=== PATIENT | female | born 1945 | race Caucasian/White ===

== ENCOUNTER → 2017-11-07 07:00 | Outpatient (CLI) | payer MEDICARE, SELFPAY ==
--- NOTE | 2017-11-07 07:00 | HPBI_ITS ---
MAMMOGRAPHY - BILATERAL SCREENING 3-D FCO SYNTHESIS REASON FOR EXAM: Female, 72 years old. Bilateral Screening 3-D tomosynthesis PERTINENT HISTORY: History of benign breast biopsy.. TECHNIQUE: 2-D mammograms and 3-D Fco synthesis of the breast (s) were performed. CAD was performed. COMPARISON: None. FINDINGS: The breast composition is composed of scattered fibroglandular density. Scattered benign calcifications are seen. No dense spiculated masses or suspicious microcalcifications are identified. No architectural distortion is identified. There is no skin thickening or retraction. There has been no significant change since the prior study. HPBI/SCREENING MAMM (CAD), BILAT IMPRESSION: No mammographic signs of malignancy. Routine yearly mammograms recommended. ASSESSMENT CATEGORY: BIRADS Category 2: Benign. A letter regarding these results will be sent to the patient by the facility within 30 days. FOLLOW UP RECOMMENDATION: Yearly follow up mammogram recommended. (A) Approximately 10% of breast cancers are not detected by mammography. A normal mammogram should not delay biopsy of a clinically suspicious abnormality. Electronically Signed: Michael Belle MD at 10:00 EDT , Service support ,
== END ==
PROVIDERS: Family Provider Family Medicine; PCP Family Medicine; Visit Provider Family Medicine
DX: Z12.31 Encounter for screening mammogram for malignant neoplasm of breast (principal)
CPT/HCPCS: 77063; 77067

== ENCOUNTER → 2017-12-02 09:49 | Outpatient (CLI) | payer MEDICARE, SELFPAY ==
--- NOTE | 2017-12-02 10:09 | EKG12_ITS ---
Test Reason : PRE-OP Blood Pressure : / mmHG Vent. Rate : 064 BPM Atrial Rate : 064 BPM P-R Int : 156 ms QRS Dur : 080 ms QT Int : 392 ms P-R-T Axes : 033 036 030 degrees QTc Int : 404 ms Normal sinus rhythm Normal ECG Confirmed by BRAEDEN JOYA, CHRIS ([id number]), continuity editor CARINA KEYES ([id number] on 12/05/2017 2:46:16 PM Referred By: CYNTHIA KEYES Confirmed By:CHRIS DERAS MD
[2017-12-02 10:27] LABS: Hematocrit 45.3 % (37-47); Hemoglobin 14.9 g/dl (12.0-15.0); Mean Corp Hgb Conc 32.9 g/gl (32-36); Mean Corpuscular Volume 94.4 fL (81-99); Mean Platelet Vol. 9.7 fl (6.2-12.0); Platelet Count 240 K/mm3 (150-450); RBC Distribution Width CV 12.7 % (11.6-14.6); White Blood Count 8.6 K/mm3 (4.4-11.0)
[2017-12-02 10:41] LABS: Scan Indicated on CBC? Y/N NO
== END ==
PROVIDERS: Family Provider Family Medicine; PCP Family Medicine; Visit Provider Surgery
DX: Z86.010 Personal history of colon polyps (principal)
CPT/HCPCS: 36415; 85027; 93005

== ENCOUNTER → 2017-12-13 12:24 | Outpatient (CLI) | payer MEDICARE, SELFPAY ==
--- NOTE | 2017-12-13 12:26 | BD_ITS ---
STUDY: DUAL ENERGY X-RAY ABSORPTIOMETRY / DXA REASON FOR EXAM: Female, 72 years old. Postmenopausal female. Smoker. Patient taking Boniva and calcium. Family history of osteoporosis. History of lumbar fusion and right hip replacement. TECHNIQUE: Bone Mineral Density (BMD) measurements of bilateral forearms were obtained. COMPARISON: None. FINDINGS: Right Forearm: g/cm2 (0.798) / T-score (-1.0) / Z-score (0.9) Left Forearm: g/cm2 (0.894) / T-score (0.1) / Z-score (1.9) BD/Dexa Bone Density/Append Skel IMPRESSION: The patient is considered normal as outlined below according to World Andrei Organization (WHO) criteria with a low fracture risk. Reference Information: The T-score is the number of standard deviations above or below the standard which is normal for young adults at their peak bone mineral density. The World Health Organization (WHO) interprets the T-scores as follows: Above -1 Normal bone density Between -1 and -2.5 Osteopenia Equal to / or below -2.5 Osteoporosis As a practical clinical guideline, osteopenia may be graded as follows: Mild -1 through -1.5 Moderate -1.6 through -2.0 Severe -2.1 through -2.4 The Z-score is the number of standard deviations above or below age-matched controls. A Z-score of less than -1.5 would be considered abnormal. References: 1. NIH Osteoporosis and Related Bone Diseases http://www.osteo.org 2. International Society for Clinical Densitometry http://www.iscd.org 3. National Osteoporosis Foundation http://www.nof.org Electronically Signed: Hesham Silver DO at 8:36 EDT Tel [phone], Service support ,
== END ==
PROVIDERS: Family Provider Family Medicine; PCP Family Medicine; Visit Provider Family Medicine
DX: M81.0 Age-related osteoporosis without current pathological fracture (principal)
CPT/HCPCS: 77081

== ENCOUNTER → 2018-01-04 09:26 | Outpatient (CLI) | payer MEDICARE, SELFPAY ==
[2018-01-04 09:30] LABS: Mucous, Urine 0 SEEN /hpf (<or=2+); Red Blood Cells-Urine 0 SEEN /hpf (0-5)
[2018-01-04 12:13] LABS: Absolute Lymphocyte Count 1.15 X10^3/ul (0.83-4.51); Absolute Neutrophil Count 3.7 X10^3/uL (2.0-7.7); Basophil# 0.03 X10^3/uL; Basophil% 0.5 % (0-1); Eosinophil# 0.33 X10^3/uL; Eosinophils% 5.9 % (0-5); Hematocrit 43.5 % (37-47); Hemoglobin 13.7 g/dl (12.0-15.0); Lymphocyte # 1.15 X10^3/ul (4.0); Lymphocyte % 20.7 % (19-41); Mean Corp Hgb Conc 31.5 g/gl (32-36); Mean Corpuscular Hgb 29.8 pg (27.0-32.0); Mean Corpuscular Volume 94.6 fL (81-99); Mean Platelet Vol. 10.2 fl (6.2-12.0); Monocyte# 0.29 X10^3/uL; Monocyte% 5.2 % (0-10); Neutrophil # 3.74 X10^3/uL (2.7-7.7); Neutrophil % 67.3 % (47-70); Platelet Count 212 K/mm3 (150-450); RBC Distribution Width CV 13.1 % (11.6-14.6); White Blood Count 5.6 K/mm3 (4.4-11.0)
[2018-01-04 12:14] LABS: POSITIVE COUNT NO; POSITIVE DIFFERENTIAL NO; POSITIVE MORPHOLOGY NO
[2018-01-04 12:40] LABS: Color, Urine Yellow (Yellow); Glucose, Dipstick 250 mg/dl (Normal); Ketone-Dipstick 5 mg/dl (Negative); Leukocyte Esterase-Dipstick Negative /ul (Negative); Nitrite-Dipstick Negative (Negative); Occult Blood-Urine 25 /ul (Negative); Protein-Dipstick Negative (Negative); Specific Gravity, Urine 1.025 (1.002-1.030); Urine Clarity Clear (Clear); Urine Urobilinogen 1 mg/dl (Normal)
[2018-01-04 12:42] LABS: Urine Bilirubin Dipstick 1 mg/dL (Negative)
[2018-01-04 12:48] LABS: Calcium Oxalate Crystals Ur 1+ /hpf (<or=2+); Squamous Epithelial Cells - UA 0-5 SEEN /hpf (5-10); White Blood Cells 0-5 SEEN /hpf (0-5)
[2018-01-04 12:50] LABS: Bacteria RARE /hpf (None Seen)
[2018-01-04 12:51] LABS: ALB/GLOB Ratio 1.1 RATIO (0.9-2.4); AST(SGOT) 17 U/L (15-37); Alanine Aminotransfer ALT/SGPT 22 U/L (13-56); Albumin, Serum 3.6 g/dL (3.2-5.0); Alkaline Phosphatase 79 U/L (45-117); Anion Gap 6 (5-15); BUN 17 mg/dL (7-18); BUN/Creat Ratio 22.3 RATIO (10-20); Calcium,Total 8.6 mg/dL (8.5-10.1); Chloride 109 mmol/L (98-107); Creatinine, Serum 0.76 mg/dL (0.55-1.02); EST Glomerular Filtration Rate 80 mL/min (>60); Est Glom Filt Rate - Afr Amer 96 mL/min (>60); Globulin 3.3 g/dL (2.2-4.2); Glucose 205 mg/dL (74-106); Magnesium 1.9 mg/dL (1.6-2.6); Phosphorus 2.1 mg/dL (2.5-4.9); Potassium 3.7 mmol/L (3.5-5.1); Protein, Total 6.9 g/dL (6.4-8.2); Sodium Level 141 mmol/L (136-145); T4 Free Direct 1.45 ng/dL (0.76-1.46); Thyroid Stim Hormone (TSH) 2.05 uIU/mL (0.358-3.74)
[2018-01-04 16:56] LABS: Hemoglobin A1c 6.5 % (4.2-6.3)
== END ==
PROVIDERS: Family Provider Family Medicine; PCP Family Medicine; Visit Provider Family Medicine
DX: R00.0 Tachycardia, unspecified (principal); M81.0 Age-related osteoporosis without current pathological fracture; R61 Generalized hyperhidrosis; Z72.0 Tobacco use; R73.01 Impaired fasting glucose
CPT/HCPCS: 36415; 80053; 81001; 82306; 83036; 83735; 84100; 84439; 84443; 85025

== ENCOUNTER 2018-01-24 13:00 | Outpatient (RCR) | payer MEDICARE, SELFPAY | END 2018-02-11 23:59 | LOC: DC 13:00 | PROVIDERS: Family Provider Family Medicine; PCP Family Medicine; Visit Provider Family Medicine | DX: E11.9 Type 2 diabetes mellitus without complications (principal); Z71.3 Dietary counseling and surveillance | CPT/HCPCS: 97802; G0108 ==

== ENCOUNTER → 2018-02-08 11:10 | Outpatient (CLI) | payer MEDICARE, SELFPAY ==
[2018-02-08 14:26] LABS: Anion Gap 8 (5-15); BUN 18 mg/dL (7-18); BUN/Creat Ratio 21.7 RATIO (10-20); Calcium,Total 8.9 mg/dL (8.5-10.1); Chloride 108 mmol/L (98-107); Creatinine, Serum 0.83 mg/dL (0.55-1.02); EST Glomerular Filtration Rate 72 mL/min (>60); Est Glom Filt Rate - Afr Amer 87 mL/min (>60); Glucose 123 mg/dL (74-106); Potassium 3.9 mmol/L (3.5-5.1); Sodium Level 142 mmol/L (136-145)
== END ==
PROVIDERS: Family Provider Family Medicine; PCP Family Medicine; Visit Provider Family Medicine
DX: I10 Essential (primary) hypertension (principal)
CPT/HCPCS: 36415; 80048

== ENCOUNTER 2018-03-07 10:00 | Outpatient (RCR) | payer MEDICARE, SELFPAY | END 2018-03-14 23:59 | LOC: DC 10:00 | PROVIDERS: Family Provider Family Medicine; PCP Family Medicine; Visit Provider Family Medicine | DX: E11.9 Type 2 diabetes mellitus without complications (principal); Z71.3 Dietary counseling and surveillance | CPT/HCPCS: 97803; G0109 ==

== ENCOUNTER → 2018-04-03 08:38 | Outpatient (CLI) | payer MEDICARE, SELFPAY ==
[2018-04-03 10:20] LABS: Absolute Lymphocyte Count 1.28 X10^3/ul (0.83-4.51); Absolute Neutrophil Count 5.1 X10^3/uL (2.0-7.7); Basophil# 0.04 X10^3/uL; Basophil% 0.6 % (0-1); Eosinophil# 0.25 X10^3/uL; Eosinophils% 3.5 % (0-5); Hematocrit 46.9 % (37-47); Hemoglobin 15.2 g/dl (12.0-15.0); Lymphocyte # 1.28 X10^3/ul (4.0); Lymphocyte % 17.8 % (19-41); Mean Corp Hgb Conc 32.4 g/gl (32-36); Mean Corpuscular Hgb 30.6 pg (27.0-32.0); Mean Corpuscular Volume 94.4 fL (81-99); Mean Platelet Vol. 10.5 fl (6.2-12.0); Monocyte# 0.47 X10^3/uL; Monocyte% 6.5 % (0-10); Neutrophil # 5.14 X10^3/uL (2.7-7.7); Neutrophil % 71.5 % (47-70); Platelet Count 223 K/mm3 (150-450); RBC Distribution Width CV 13.1 % (11.6-14.6); RBC Distribution Width SD 45.5 fl (35.1-43.9); Red Blood Count 4.97 M/mm3 (4.2-5.4); White Blood Count 7.2 K/mm3 (4.4-11.0)
[2018-04-03 10:21] LABS: POSITIVE COUNT NO; POSITIVE DIFFERENTIAL NO; POSITIVE MORPHOLOGY NO
[2018-04-03 10:47] LABS: Hemoglobin A1c 5.6 % (4.2-6.3); Vitamin D,25 Hydroxy 47.3 ng/mL (29.95-100.01)
[2018-04-03 10:48] LABS: BUN 18 mg/dL (7-18); Creatinine, Serum 0.76 mg/dL (0.55-1.02); Glucose 144 mg/dL (74-106)
[2018-04-03 10:49] LABS: AST(SGOT) 17 U/L (15-37); Alanine Aminotransfer ALT/SGPT 22 U/L (13-56); Albumin, Serum 3.6 g/dL (3.2-5.0); Alkaline Phosphatase 76 U/L (45-117); Anion Gap 10 (5-15); BUN/Creat Ratio 23.6 RATIO (10-20); Calcium,Total 9.3 mg/dL (8.5-10.1); Chloride 108 mmol/L (98-107); EST Glomerular Filtration Rate 79 mL/min (>60); Est Glom Filt Rate - Afr Amer 96 mL/min (>60); Globulin 3.5 g/dL (2.2-4.2); Potassium 4.3 mmol/L (3.5-5.1); Protein, Total 7.1 g/dL (6.4-8.2); Sodium Level 144 mmol/L (136-145)
[2018-04-03 11:07] LABS: Microalbumin:Creatinine Ratio 13.6 mg/g CRE (<30 mg/g CRE)
== END ==
PROVIDERS: Family Provider Family Medicine; PCP Family Medicine; Visit Provider Family Medicine
DX: E11.9 Type 2 diabetes mellitus without complications (principal); I10 Essential (primary) hypertension
CPT/HCPCS: 80053; 82043; 82306; 82570; 83036; 85025

== ENCOUNTER → 2018-04-20 11:50 | Outpatient (CLI) | payer MEDICARE, SELFPAY ==
[2018-04-20 13:48] LABS: Anion Gap 9 (5-15); BUN 23 mg/dL (7-18); BUN/Creat Ratio 29.3 RATIO (10-20); Calcium,Total 9.5 mg/dL (8.5-10.1); Chloride 106 mmol/L (98-107); Creatinine, Serum 0.78 mg/dL (0.55-1.02); EST Glomerular Filtration Rate 77 mL/min (>60); Est Glom Filt Rate - Afr Amer 93 mL/min (>60); Glucose 100 mg/dL (74-106); Potassium 3.9 mmol/L (3.5-5.1); Sodium Level 142 mmol/L (136-145)
== END ==
LOC: LABSPEC 11:51 → LAB 11:55
PROVIDERS: Family Provider Family Medicine; PCP Family Medicine; Visit Provider Family Medicine
DX: E11.9 Type 2 diabetes mellitus without complications (principal)
CPT/HCPCS: 36415; 80048; G0109

== ENCOUNTER 2018-05-03 09:30 | Outpatient (RCR) | payer MEDICARE, SELFPAY | END 2018-05-14 23:59 | LOC: DC 09:30 | PROVIDERS: Family Provider Family Medicine; PCP Family Medicine; Visit Provider Family Medicine | DX: E11.9 Type 2 diabetes mellitus without complications (principal); Z71.3 Dietary counseling and surveillance | CPT/HCPCS: 97803; G0109 ==

== ENCOUNTER → 2018-05-03 12:48 | Outpatient (CLI) | payer MEDICARE, SELFPAY ==
--- NOTE | 2018-05-03 12:50 | CT_ITS ---
STUDY: LOW DOSE CT LUNG CANCER SCREENING REASON FOR EXAM: Female, 72 years old. Smoking history of 45 pack years. RADIATION DOSAGE (If Supplied By Facility): CTDIvol = ( 2.55 ) mGy, DLP = ( 77.23 ) mGycm TECHNIQUE: No contrast was administered. Low dose technique was utilized (average mAS-38 and kVp 120). 1.25 mm axial source images with a slice interval of 1.25-mm were reconstructed in lung windows. 2.5 mm axial source images with a slice interval of 2.5-mm were reconstructed in lung windows. 5.0 mm axial source images with a slice interval of 5.0-mm were reconstructed in soft tissue windows. Nodule measured using lung windows on PACS and/or independent workstation with automated measurement of minimum and maximum diameter. Nodule measurement reported as average diameter rounded to the nearest whole number. Growth is defined as an increase ins size of greater than 1.5 mm. COMPARISON: None. NODULES: No suspicious nodules are seen. Emphysema: Hyperinflation. Mild degree of emphysematous changes. Endobronchial lesion: None Aorta: Scattered atherosclerotic plaques. Mediastinal nodes: Small nonsignificant mediastinal lymph nodes. Other chest and abdominal findings: Degenerative changes of the thoracic spine. CT/Low Dose CT Lung Screening IMPRESSION: Lung-RADS category 2 - Continue annual screening with LDCT in 12 months. IMPORTANT NOTES FOR USE: ACR Lung-RADS Version 1.0 Assessment Categories Release Date: December 10, 2013 Category: Coded 0-4 bases on nodule(s) with highest degree of suspicion. Negative screen is defined as categories 1 and 2; a positive screen is defined as categories 3 and 4. Category 3 and 4A nodules that are unchanged on interval CT should be coded as category 2, and individuals returned to screening in 12 months. Category 4X: Category 3 or 4 nodules with additional imaging findings that increase the suspicion of lung cancer, such as spiculation, GGN that doubles in size in 1 year, enlarged lymph notes, etc. Category Modifiers: S (significant finding unrelated to lung cancer) and C (prior history of treated lung cancer) may be added to the 0-4 Lung-RADS Electronically Signed: Nato Gates MD at 13:27 EDT Tel [phone], Service support ,
== END ==
PROVIDERS: Family Provider Family Medicine; PCP Family Medicine; Visit Provider Internal Medicine Pulmonary Disease
DX: Z12.2 Encounter for screening for malignant neoplasm of respiratory organs (principal); Z87.891 Personal history of nicotine dependence
CPT/HCPCS: 97803; G0297

== ENCOUNTER 2018-05-18 08:36 | Outpatient (RCR) | payer MEDICARE, SELFPAY | END 2018-06-14 23:59 | LOC: DC 08:36 | PROVIDERS: Family Provider Family Medicine; PCP Family Medicine; Visit Provider Family Medicine | DX: E11.9 Type 2 diabetes mellitus without complications (principal); Z71.3 Dietary counseling and surveillance | CPT/HCPCS: G0109 ==

== ENCOUNTER 2018-06-21 09:23 | Outpatient (RCR) | payer MEDICARE, SELFPAY | END 2018-06-21 23:59 | disposition home or self-care (01) | LOC: DC 09:23 | PROVIDERS: Family Provider Family Medicine; PCP Family Medicine; Visit Provider Family Medicine | DX: E11.9 Type 2 diabetes mellitus without complications (principal); Z71.3 Dietary counseling and surveillance | CPT/HCPCS: G0109 ==

== ENCOUNTER → 2018-06-30 08:59 | Outpatient (CLI) | payer MEDICARE, SELFPAY ==
--- NOTE | 2018-06-30 09:02 | RAD_ITS ---
STUDY: X-RAY CHEST REASON FOR EXAM: Female, 73 years old. Cough for months prior, complains of runny nose and allergies. TECHNIQUE: PA and lateral views of the chest. COMPARISON: CT chest low dose 05/03/2018. FINDINGS: The lungs are clear and hyperinflated. There is no demonstrated pleural abnormality. Normal size heart. Normal mediastinum and jose. Normal visualized pulmonary arteries. There is atherosclerotic calcification of the aortic arch with tortuosity. Age-appropriate thoracic spine. Normal visualized ribs, clavicles, and shoulders. Status post lumbar fusion. There is no demonstrated abnormality of the visualized soft tissue structures of the upper abdomen. RAD/Chest PA and Lateral IMPRESSION: Hyperinflation, component of emphysema suspected. No pulmonary edema, congestive heart failure or confluent pneumonia. Electronically Signed: Summer Wells MD at 3:13 EST , Service support ,
== END ==
PROVIDERS: Family Provider Family Medicine; PCP Family Medicine; Referring Provider Family Medicine; Visit Provider Family Medicine
DX: J20.9 Acute bronchitis, unspecified (principal)
CPT/HCPCS: 71046

== ENCOUNTER → 2018-07-24 15:34 | Outpatient (CLI) | payer MEDICARE, SELFPAY ==
[2018-07-24 17:55] LABS: Absolute Eosinophil Count 0.26 X10^3/uL (0.0-0.23); Hematocrit 41.9 % (37-47); Hemoglobin 13.5 g/dl (12.0-15.0); Mean Corp Hgb Conc 32.2 g/gl (32-36); Mean Corpuscular Hgb 30.1 pg (27.0-32.0); Mean Corpuscular Volume 93.5 fL (81-99); Platelet Count 234 K/mm3 (150-450); RBC Distribution Width CV 13.1 % (11.6-14.6); RBC Distribution Width SD 43.8 fl (35.1-43.9); Red Blood Count 4.48 M/mm3 (4.2-5.4); White Blood Count 7.8 K/mm3 (4.4-11.0)
[2018-07-24 18:31] LABS: Erythrocyte Sedimentation Rate 11 mm/hr (0-30)
[2018-07-24 19:38] LABS: Scan Indicated on CBC? Y/N NO
[2018-07-27 07:37] LABS: Angiotensin Convert Enzyme 41 U/L (14-82)
--- OUTSIDE RECORDS SUMMARY | 2018-09-10 00:05 | XMS RPT_ITS ---
:1945 Author Organization OHIP Support Name Relationship Address Phone GERALDINEBLAKE Unavailable [address] + [place] [address] R Unavailable Unavailable Unavailable BLAKE CHANDLER Unavailable [address] + [place] [address] R Unavailable Unavailable Unavailable BLAKE CHANDLER Unavailable [address] + [place] [address] R Unavailable Unavailable Unavailable BLAKE CHANDLER Unavailable [address] + [place] [address] R Unavailable Unavailable Unavailable BLAKE CHANDLER Unavailable [address] + [place] [address] R Unavailable Unavailable Unavailable BLAKE CHANDLER Unavailable [address] + [place] [address] R Unavailable Unavailable Unavailable BLAKE CHANDLER Unavailable [address] + [place] [address] R Unavailable Unavailable Unavailable BLAKE CHANDLER Unavailable [address] + [place] [address] R Unavailable Unavailable Unavailable BLAKE CHANDLER Unavailable [address] + [place] [address] R Unavailable Unavailable Unavailable BLAKE CHANDLER Unavailable [address] + [place] [address] R Unavailable Unavailable Unavailable BLAKE CHANDLER Unavailable [address] + [place] [address] R Unavailable Unavailable Unavailable BLAKE CHANDLER Unavailable [address] + [place] [address] R Unavailable Unavailable Unavailable BLAKE CHANDLER Unavailable [address] + [place] [address] R Unavailable Unavailable Unavailable BLAKE CHANDLER Unavailable [address] + [place], [place] [id number] LBAKE CHANDLER Unavailable [address] Unavailable [place], [place] [id number] NOT GIVEN Unavailable Unavailable Unavailable BLAKE CHANDLER Unavailable [address] + [place] [address] R Unavailable Unavailable Unavailable BLAKE CHANDLER Unavailable [address] + [place] [address] R Unavailable Unavailable Unavailable BLAKE CHANDLER Unavailable [address] + [place] [address] R Unavailable Unavailable Unavailable NOT GIVEN Unavailable Unavailable Unavailable BLAKE CHANDLER Unavailable [address] + [place] [address] R Unavailable Unavailable Unavailable Care Team Providers Name Role Phone CYNTHIA KEYES Admitting Unavailable CYNTHIA KEYES Attending Unavailable CYNTHIA KEYES Primary Care Unavailable TRENT PETERSON Consulting Unavailable PROVIDER, UNKNOWN Consulting Unavailable PROVIDER, UNKNOWN Consulting Unavailable PROVIDER, UNKNOWN Consulting Unavailable CYNTHIA KEYES Admitting Unavailable CYNTHIA KEYES Attending Unavailable CYNTHIA KEYES Primary Care Unavailable TERRANCE LUNA Consulting Unavailable TERRANCE LUNA Referring Unavailable PROVIDER, UNKNOWN Consulting Unavailable Zaki Kinney Attending Unavailable Zaki Kinney Referring Unavailable SchTerrance pate Primary Care Unavailable SchTerrance pate Attending Unavailable Terrance Luna Primary Care Unavailable Trent Peterson Attending Unavailable Trent Peterson Primary Care Unavailable CYNTHIA KEYES Attending Unavailable CYNTHIA KEYES Referring Unavailable Trent Peterson Primary Care Unavailable SchTerrance pate Attending Unavailable SchTerrance pate Referring Unavailable SchTerrance pate Primary Care Unavailable SchTerrance pate Attending Unavailable SchTerrance pate Primary Care Unavailable Porfirio Deras Attending Unavailable CYNTHIA KEYES Referring Unavailable SchTerrance pate Attending Unavailable SchTerrance pate Primary Care Unavailable SchTerrance pate Attending Unavailable SchTerrance pate Primary Care Unavailable SchTerrance pate Attending Unavailable SchTerrance pate Primary Care Unavailable SchTerrance pate Attending Unavailable SchTerrance pate E Primary Care Unavailable SchTerrance pate Attending Unavailable Schrio, Terrance Venegas Primary Care Unavailable SchTerrance pate Attending Unavailable SchTerrance pate Referring Unavailable Schrio, Terrance Venegas Primary Care Unavailable Zaki Kinney Attending Unavailable Zaki Kinney Referring Unavailable ScheTrrance pate E Primary Care Unavailable SchTerrance pate Attending Unavailable Terrance [place] Primary Care Unavailable Terrance Luna Attending Unavailable Terrance Luna Primary Care Unavailable Terrance Luna Attending Unavailable Terrance Luna Referring Unavailable Terrance Luna Primary Care Unavailable PROBLEMS PROBLEMS DATE TYPE CONDITION / CODE ATTENDING STATUS SOURCE 06/30/2018 Unknown J20.9 - Acute Annecoriesara Terrance Active [place] bronchitis, E Community unspecified / Hospital J20.9(ICD-10) Repository 06/22/2018 Unknown E11.9 - Type 2 Celeste Terrance Active [place] diabetes mellitus E Community without Hospital complications / Repository E11.9(ICD-10) 04/20/2018 Unknown 250.00 - Diabetes Celeste [place]ance Active [place] mellitus without E Community mention of Hospital complication, type Repository II or unspecified type, not stated as uncontrolled / 250.00(ICD-9) 12/02/2017 Unknown Z86.010 - Personal CYNTHIA KEYES Active [place] history of colonic [facility] polyps / Hospital Z86.010(ICD-10) Repository 01/04/2018 Unknown Z01.810 - Encounter Margarita Deras [place] for preprocedural [facility] examination / Repository Z01.810(ICD-10) 12/01/2017 Principle Personal history of CYN[place]IA KE[place] Active Roney Leahy Diagnosis colonic polyps / [facility] E76156(ICD-10) Hospital Repository 11/07/2017 Unknown Z12.31 - Encounter Trent Peterson Active [place] for screening [facility] mammogram for [facility] malignant neoplasm Repository of breast / Z12.31(ICD-10) PROCEDURES PROCEDURES No Procedure Records FoundRESULTS RESULTS CBC W/DIFF, AUTOMATED Collected: 08/31/2018 Status: F Source: [place] [facility] TYPE CODE TESTS RESULT OUT OF RANGE REFERENCE UNITS LAB L100.1000 4.4-11.0 K/mm3 Normal WBC 7.5 LAB L100.1200 4.2-5.4 M/mm3 Normal RBC 4.53 LAB L100.1300 12.0-15.0 g/dl Normal HGB 13.4 LAB L100.1400 37-47 % Normal HCT 41.8 LAB L100.1500 81-99 fL Normal MCV 92.3 LAB L100.1600 27.0-32.0 pg Normal MCH 29.6 LAB L100.1700 32-36 g/gl Normal MCHC 32.1 LAB L100.1810 11.6-14.6 % Normal RDW CV 12.5 LAB L100.1820 35.1-43.9 fl Normal RDW SD 42.1 LAB L100.1900 150-450 K/mm3 Normal PLT 271 LAB L100.2000 6.2-12.0 fl Normal MPV 9.7 LAB L100.2100 47-70 % Normal NEUT% 64.6 LAB L100.2200 19-41 % Normal LY% 22.9 LAB L100.2300 0-10 % Normal MONO% 8.4 LAB L100.2400 0-5 % Normal EO% 3.1 LAB L100.2500 0-1 % Normal BASO% 0.7 LAB L100.2550 0.0-0.9 % Normal IM GRAN % 0.300 Result Comment: IG% - Immature Granulocytes (promyelocytes, myelocytes and metamyelocytes) > 1% indicates that a LEFT SHIFT is Present. LAB L100.2620 2.0-7.7 X10 3/uL Normal Absolute Neut 4.8 LAB L100.2720 0.83-4.51 X10 3/ul Normal Absolute Lymph 1.71 Performed By: #### L100.0100 #### [facility] [address] [place], [place], [address] URINALYSIS, COMPLETE Collected: 08/31/2018 Status: F Source: [place] 11:09 AM [facility] REPOSITORY Order Comment: How was Urine Obtained? CLEAN CATCH TYPE CODE TESTS RESULT OUT OF RANGE REFERENCE UNITS LAB L400.3000 Yellow COLOR Normal Yellow LAB L400.3050 Clear Normal CLARITY Sl. Cloudy LAB L400.3200 Normal mg/dl Normal GLUCOSE, UR Normal LAB L400.3300 Negative mg/dL Normal BILIRUBIN URINE Negative LAB L400.3400 Negative mg/dl Normal KETONE UR Negative LAB L400.3465 1.002-1.030 Normal SP.GR. DIPSTX 1.010 LAB L400.3550 5.0 - 8.0 pH UR Normal 7.0 LAB L400.3600 Negative mg/dl PROT Normal DIPSTX Negative LAB L400.3700 Normal mg/dl Normal UROBILI Normal LAB L400.3750 Negative Normal NITRITE UR Negative LAB L400.3780 Negative /ul High 25 OCCULT BLOOD-UR LAB L400.3800 Negative /ul LEUK Normal ESTERASE Negative LAB L400.4050 0-5 /hpf WBC Normal 0-5 SEEN LAB L400.4100 0-5 /hpf 0 Normal RBC-UA SEEN LAB L400.4150 5-10 /hpf SQUAM Normal EPI 5-10 SEEN LAB L400.4300 None Seen /hpf 2+ Normal BACTERIA LAB L400.4350 <or=2+ /hpf 3+ Normal MUCUS, URINE Performed By: #### L400.0001 #### [facility] [address] [place], [address] HEMOGLOBIN A1C Collected: 08/31/2018 Status: F Source: [place] 11:09 [facility] REPOSITORY TYPE CODE TESTS RESULT OUT OF RANGE REFERENCE UNITS LAB L501.9985 4.2-6.3 % Normal HGB A1C 6.2 Performed By: #### L501.9985 #### [facility] [address] [place], [address] COMPREHENSIVE METABOLIC Collected: 08/31/2018 Status: F Source: [facility] 11:09 [facility] REPOSITORY TYPE CODE TESTS RESULT OUT OF RANGE REFERENCE UNITS LAB L501.0100 74-106 mg/dL Normal GLU 85 Result Comment: Please note revised GLUCOSE reference range effective 2017. LAB L501.1000 7-18 mg/dL High BUN 26 LAB L501.1100 0.55-1.02 mg/dL Normal CREAT,SERUM 0.73 Result Comment: The validity of the calculated GFR AND GFRAA in patients over 70 years has not been determined. Clinical correlation is essential. LAB L501.1110 >60 mL/min Normal EST GFR 83 Result Comment: Non- GFR Calc LAB L501.1115 >60 mL/min Normal EST GFR - AA 100 Result Comment: GFR Calc LAB L501.1300 10-20 RATIO High BUN/CRE 35.4 LAB L501.1500 6.4-8.2 g/dL T Normal PROT 7.3 LAB L501.1800 3.2-5.0 g/dL Normal ALB 3.7 LAB L501.1950 2.2-4.2 g/dL Normal GLOB 3.6 LAB L501.2000 0.9-2.4 RATIO Normal A/G 1.0 LAB L501.2200 8.5-10.1 mg/dL CA Normal 9.3 LAB L501.4100 15-37 U/L Normal AST 16 LAB L501.4305 45-117 U/L Normal ALK P 76 LAB L501.4405 13-56 U/L Normal ALT 21 LAB L501.4600 0.20-1.00 mg/dL T Normal BILI 0.30 LAB L501.5300 136-145 mmol/L NA Normal 142 LAB L501.5600 3.5-5.1 mmol/L K Normal 4.1 LAB L501.5900 98-107 mmol/L CL Normal 106 LAB L501.6100 21.0-32.0 mmol/L Normal CO2 25.0 LAB L501.6200 5-15 Normal GAP 11 Performed By: #### L500.4050, L501.5200 #### [facility] [address] [facility] [place], [place], [address] MAGNESIUM Collected: 08/31/2018 Status: F Source: [place] 11:09 AM [facility] REPOSITORY TYPE CODE TESTS RESULT OUT OF RANGE REFERENCE UNITS LAB L501.5200 1.6-2.6 mg/dL Normal MG 2.1 Performed By: #### L500.4050, L501.5200 #### [facility] [address] [place], [place], [address] MICROALB:CREAT Collected: 08/31/2018 Status: F Source: [place] RATIO,RANDOM UR 11:09 AM [facility] REPOSITORY TYPE CODE TESTS RESULT OUT OF RANGE REFERENCE UNITS LAB L501.1200 NO RANGE EST. mg/dL Normal UR CREAT 134.00 LAB L502.0500 NO RANGE EST. mg/L Normal 12.1 MICROALBUMIN ,UR LAB L502.0600 <30 mg/g CRE mg/g CRE Normal 9.0 MALB:CREAT Performed By: #### L502.0250 #### [facility] [address] [place], [place], [address] VITAMIN D,25 HYDROXY Collected: 08/31/2018 Status: F Source: [place] 11:09 AM [facility] REPOSITORY TYPE CODE TESTS RESULT OUT OF RANGE REFERENCE UNITS LAB L506.1000 29.95-100.01 ng/mL Normal Vitamin D 49.9 25-OH Result Comment: Vitamin D 25(OH) Status Range Deficiency <20 ng/mL (50nmol/L) Insuffciency 20 - 30 ng/mL (50 - 75 nmol/L) Sufficiency 30 - 100 ng/mL (75 - 250 nmol/L) Toxicity >100 ng/mL (>250 nmol/L) Performed By: #### L506.1000 #### [facility] [address] [place], [place], [id number] CBC-COMPLETE BLOOD CNT Collected: 07/24/2018 Status: F Source: [place] NO DIFF 3:43 PM [facility] REPOSITORY TYPE CODE TESTS RESULT OUT OF RANGE REFERENCE UNITS LAB L100.1000 4.4-11.0 K/mm3 Normal WBC 7.8 LAB L100.1200 4.2-5.4 M/mm3 Normal RBC 4.48 LAB L100.1300 12.0-15.0 g/dl Normal HGB 13.5 LAB L100.1400 37-47 % Normal HCT 41.9 LAB L100.1500 81-99 fL Normal MCV 93.5 LAB L100.1600 27.0-32.0 pg Normal MCH 30.1 LAB L100.1700 32-36 g/gl Normal MCHC 32.2 LAB L100.1810 11.6-14.6 % Normal RDW CV 13.1 LAB L100.1820 35.1-43.9 fl Normal RDW SD 43.8 LAB L100.1900 150-450 K/mm3 Normal PLT 234 LAB L100.2000 6.2-12.0 fl Normal MPV 10.0 Performed By: #### L100.0500, L100.2920, L101.9900 #### [facility] [address] [place], [place], [id number] ABSOLUTE EOSINOPHIL Collected: 07/24/2018 Status: F Source: [place] COUNT 3:43 PM [facility] REPOSITORY TYPE CODE TESTS RESULT OUT OF REFERENCE UNITS RANGE LAB L100.2920 0.0-0.23 X10 3/uL High Absolute EOS 0.26 Ct Performed By: #### L100.0500, L100.2920, L101.9900 #### [facility] [address] [place], [address] ERYTHROCYTE SED RATE Collected: 07/24/2018 Status: F Source: [place] 3:43 PM [facility] REPOSITORY TYPE CODE TESTS RESULT OUT OF RANGE REFERENCE UNITS LAB L102.0000 0-30 mm/hr Normal SED RATE 11 Performed By: #### L100.0500, L100.2920, L101.9900 #### [facility] [address] [place], [address] ANGIOTENSIN CONVERT Collected: 07/24/2018 Status: F Source: [place] ENZYME 3:43 PM [facility] REPOSITORY TYPE CODE TESTS RESULT OUT OF RANGE REFERENCE UNITS LAB L3100.6900 14-82 U/L Normal EMY [id number] Result Comment: Performed at: - [facility] [place] [id number] Geothermal Field Technician: Stephan Mackenzie PhD, Phone: [phone] Performed By: #### L3100.6900 #### [facility] (refer to report for specific site) refer to report for address and phone number CHEST PA AND LATERAL Observed: 06/30/2018 Status: F Source: [place] 9:02 AM [facility] REPOSITORY [facility] Imaging Services [address] [place] [address] Chest PA and Lateral MR#: [id number] Acct: [id number] Name: SUSAN CHANDLER Rep #: [id number] : 1945 F 73 From: Summer Wells MD PCP: Terrance [place] MD Status: REG CLI Study: Chest PA and Lateral Date of Exam: 06/30/18 Exam# [id number] Ordering Dr: Terrance [place] MD STUDY: X-RAY CHEST REASON FOR EXAM: Female, 73 years old. Cough for months prior, complains of runny nose and allergies. TECHNIQUE: PA and lateral views of the chest. COMPARISON: CT chest low dose 05/03/2018. FINDINGS: The lungs are clear and hyperinflated. There is no demonstrated pleural abnormality. Normal size heart. Normal mediastinum and jose. Normal visualized pulmonary arteries. There is atherosclerotic calcification of the aortic arch with tortuosity. Age-appropriate thoracic spine. Normal visualized ribs, clavicles, and shoulders. Status post lumbar fusion. There is no demonstrated abnormality of the visualized soft tissue structures of the upper abdomen. RAD/Chest PA and Lateral IMPRESSION: Hyperinflation, component of emphysema suspected. No pulmonary edema, congestive heart failure or confluent pneumonia. Electronically Signed: Summer Wells MD at 3:13 EST , Service support , CC: Terrance [place] MD Metal Stamper: Signed LOW DOSE CT LUNG Observed: 05/03/2018 Status: F Source: [place] SCREENING 12:51 PM [facility] REPOSITORY [facility] Imaging Services [address] [place] [address] Lung Screening MR#: [id number] Acct: [id number] Name: SUSAN CHANDLER Rep #: [id number] : 1945 F 72 From: Nato Gates MD PCP: Terrance [place] MD Status: REG [facility] Study: Low Dose CT Lung Screening Date of Exam: 05/03/18 Exam# [id number] Ordering Dr: Zaki Kinney MD STUDY: LOW DOSE CT LUNG CANCER SCREENING REASON FOR EXAM: Female, 72 years old. Smoking history of 45 pack years. RADIATION DOSAGE (If Supplied By Facility): CTDIvol = ( 2.55 ) mGy, DLP = ( 77.23 ) mGycm TECHNIQUE: No contrast was administered. Low dose technique was utilized (average mAS-38 and kVp 120). 1.25 mm axial source images with a slice interval of 1.25- mm were reconstructed in lung windows. 2.5 mm axial source images with a slice interval of 2.5-mm were reconstructed in lung windows. 5.0 mm axial source images with a slice interval of 5.0-mm were reconstructed in soft tissue windows. Nodule measured using lung windows on PACS and/or independent workstation with automated measurement of minimum and maximum diameter. Nodule measurement reported as average diameter rounded to the nearest whole number. Growth is defined as an increase ins size of greater than 1.5 mm. COMPARISON: None. NODULES: No suspicious nodules are seen. Emphysema: Hyperinflation. Mild degree of emphysematous changes. Endobronchial lesion: None Aorta: Scattered atherosclerotic plaques. Mediastinal nodes: Small nonsignificant mediastinal lymph nodes. Other chest and abdominal findings: Degenerative changes of the thoracic spine. CT/Low Dose CT Lung Screening IMPRESSION: Lung-RADS category 2 - Continue annual screening with LDCT in 12 months. IMPORTANT NOTES FOR USE: ACR Lung-RADS Version 1.0 Assessment Categories Release Date: December 10, 2013 Category: Coded 0-4 bases on nodule(s) with highest degree of suspicion. Negative screen is defined as categories 1 and 2; a positive screen is defined as categories 3 and 4. Category 3 and 4A nodules that are unchanged on interval CT should be coded as category 2, and individuals returned to screening in 12 months. Category 4X: Category 3 or 4 nodules with additional imaging findings that increase the suspicion of lung cancer, such as spiculation, GGN that doubles in size in 1 year, enlarged lymph notes, etc. Category Modifiers: S (significant finding unrelated to lung cancer) and C (prior history of treated lung cancer) may be added to the 0-4 Lung-RADS Electronically Signed: Nato Gates MD at 13:27 EDT Tel [phone], Service support , CC: Terrance [place] MD; Zaki Kinney MD Metal Stamper: Signed BASIC METABOLIC Collected: 04/20/2018 Status: F Source: [place] PROFILE (BMP) 11:53 AM [facility] REPOSITORY Order Comment: Order Date: 04/19/18 Order Info: 0667-1 - BMP TYPE CODE TESTS RESULT OUT OF RANGE REFERENCE UNITS LAB L501.0100 74-106 mg/dL Normal GLU 100 Result Comment: Fasting Glucose result from 100 to 125 mg/dL suggests IMPAIRED HOMEOSTASIS per A.D.A. criteria. Please note revised GLUCOSE reference range effective 2017. LAB L501.1000 7-18 mg/dL High BUN 23 LAB L501.1100 0.55-1.02 mg/dL Normal CREAT,SERUM 0.78 Result Comment: The validity of the calculated GFR AND GFRAA in patients over 70 years has not been determined. Clinical correlation is essential. LAB L501.1110 >60 mL/min Normal EST GFR 77 Result Comment: Non- GFR Calc LAB L501.1115 >60 mL/min Normal EST GFR - AA 93 Result Comment: GFR Calc LAB L501.1300 10-20 RATIO High BUN/CRE 29.3 LAB L501.2200 8.5-10.1 mg/dL CA Normal 9.5 LAB L501.5300 136-145 mmol/L NA Normal 142 LAB L501.5600 3.5-5.1 mmol/L K Normal 3.9 LAB L501.5900 98-107 mmol/L CL Normal 106 LAB L501.6100 21.0-32.0 mmol/L Normal CO2 27.0 LAB L501.6200 5-15 Normal GAP 9 Performed By: #### L500.2500 #### [facility] [address] [place], [place] [address]. [place], [address] CBC W/DIFF, AUTOMATED Collected: 04/03/2018 Status: F Source: [place] 9:07 AM [facility] REPOSITORY Order Comment: Order Date: 04/03/18 Order Info: 0184-1 - CBCD TYPE CODE TESTS RESULT OUT OF RANGE REFERENCE UNITS LAB L100.1000 4.4-11.0 K/mm3 Normal WBC 7.2 LAB L100.1200 4.2-5.4 M/mm3 Normal RBC 4.97 LAB L100.1300 12.0-15.0 g/dl High HGB 15.2 LAB L100.1400 37-47 % Normal HCT 46.9 LAB L100.1500 81-99 fL Normal MCV 94.4 LAB L100.1600 27.0-32.0 pg Normal MCH 30.6 LAB L100.1700 32-36 g/gl Normal MCHC 32.4 LAB L100.1810 11.6-14.6 % Normal RDW CV 13.1 LAB L100.1820 35.1-43.9 fl High RDW SD 45.5 LAB L100.1900 150-450 K/mm3 Normal PLT 223 LAB L100.2000 6.2-12.0 fl Normal MPV 10.5 LAB L100.2100 47-70 % High NEUT% 71.5 LAB L100.2200 19-41 % Low LY% 17.8 LAB L100.2300 0-10 % Normal MONO% 6.5 LAB L100.2400 0-5 % Normal EO% 3.5 LAB L100.2500 0-1 % Normal BASO% 0.6 LAB L100.2550 0.0-0.9 % Normal IM GRAN % 0.100 Result Comment: IG% - Immature Granulocytes (promyelocytes, myelocytes and metamyelocytes) > 1% indicates that a LEFT SHIFT is Present. LAB L100.2620 2.0-7.7 X10 3/uL Normal Absolute Neut 5.1 LAB L100.2720 0.83-4.51 X10 3/ul Normal Absolute Lymph 1.28 Performed By: #### L100.0100, L501.9985, L506.1000, L500.4050, L502.0250 #### [facility] [address] [facility] [place], [place], [address] HEMOGLOBIN A1C Collected: 04/03/2018 Status: F Source: [place] 9:07 AM [facility] REPOSITORY Order Comment: Order Date: 04/03/18 Order Info: 4548-4 - A1C TYPE CODE TESTS RESULT OUT OF RANGE REFERENCE UNITS LAB L501.9985 4.2-6.3 % Normal HGB A1C 5.6 Performed By: #### L100.0100, L501.9985, L506.1000, L500.4050, L502.0250 #### [facility] [address] [facility] [place], [place], [address] VITAMIN D,25 HYDROXY Collected: 04/03/2018 Status: F Source: [place] 9:07 AM [facility] REPOSITORY Order Comment: Order Date: 04/03/18 Order Info: 16969-9 - VITD25 TYPE CODE TESTS RESULT OUT OF RANGE REFERENCE UNITS LAB L506.1000 29.95-100.01 ng/mL Normal Vitamin D 47.3 25-OH Result Comment: Vitamin D 25(OH) Status Range Deficiency <20 ng/mL (50nmol/L) Insuffciency 20 - 30 ng/mL (50 - 75 nmol/L) Sufficiency 30 - 100 ng/mL (75 - 250 nmol/L) Toxicity >100 ng/mL (>250 nmol/L) Performed By: #### L100.0100, L501.9985, L506.1000, L500.4050, L502.0250 #### [facility] [address] [place], [address] COMPREHENSIVE METABOLIC Collected: 04/03/2018 Status: F Source: [place] 9:07 AM [facility] REPOSITORY Order Comment: Order Date: 04/03/18 Order Info: 0786-1 - CMP TYPE CODE TESTS RESULT OUT OF RANGE REFERENCE UNITS LAB L501.0100 74-106 mg/dL High GLU 144 Result Comment: Fasting Glucose result greater than or equal to 126 mg/dL suggests DIABETES MELLITUS per A.D.A. criteria. Please note revised GLUCOSE reference range effective 2017. LAB L501.1000 7-18 mg/dL Normal BUN 18 LAB L501.1100 0.55-1.02 mg/dL Normal CREAT,SERUM 0.76 Result Comment: The validity of the calculated GFR AND GFRAA in patients over 70 years has not been determined. Clinical correlation is essential. LAB L501.1110 >60 mL/min Normal EST GFR 79 Result Comment: Non- GFR Calc LAB L501.1115 >60 mL/min Normal EST GFR - AA 96 Result Comment: GFR Calc LAB L501.1300 10-20 RATIO High BUN/CRE 23.6 LAB L501.1500 6.4-8.2 g/dL T Normal PROT 7.1 LAB L501.1800 3.2-5.0 g/dL Normal ALB 3.6 LAB L501.1950 2.2-4.2 g/dL Normal GLOB 3.5 LAB L501.2000 0.9-2.4 RATIO Normal A/G 1.0 LAB L501.2200 8.5-10.1 mg/dL CA Normal 9.3 LAB L501.4100 15-37 U/L Normal AST 17 LAB L501.4305 45-117 U/L Normal ALK P 76 LAB L501.4405 13-56 U/L Normal ALT 22 LAB L501.4600 0.20-1.00 mg/dL T Normal BILI 0.40 LAB L501.5300 136-145 mmol/L NA Normal 144 LAB L501.5600 3.5-5.1 mmol/L K Normal 4.3 LAB L501.5900 98-107 mmol/L High CL 108 LAB L501.6100 21.0-32.0 mmol/L Normal CO2 26.0 LAB L501.6200 5-15 Normal GAP 10 Performed By: #### L100.0100, L501.9985, L506.1000, L500.4050, L502.0250 #### [facility] [address] [place], [place], [address] MICROALB:CREAT Collected: 04/03/2018 Status: F Source: [place] RATIO,RANDOM UR 9:07 AM [facility] REPOSITORY Order Comment: Order Date: 04/03/18 Order Info: 0779-1 - MIACRE TYPE CODE TESTS RESULT OUT OF RANGE REFERENCE UNITS LAB L501.1200 NO RANGE EST. mg/dL Normal UR CREAT 110.00 LAB L502.0500 NO RANGE EST. mg/L Normal 15.0 MICROALBUMIN ,UR LAB L502.0600 <30 mg/g CRE mg/g CRE Normal 13.6 MALB:CREAT Performed By: #### L100.0100, L501.9985, L506.1000, L500.4050, L502.0250 #### [facility] [address] [place], [address] BASIC METABOLIC Collected: 02/08/2018 Status: F Source: [place] PROFILE (BMP) 11:11 AM [facility] REPOSITORY TYPE CODE TESTS RESULT OUT OF RANGE REFERENCE UNITS LAB L501.0100 74-106 mg/dL High GLU 123 Result Comment: Fasting Glucose result from 100 to 125 mg/dL suggests IMPAIRED HOMEOSTASIS per A.D.A. criteria. Please note revised GLUCOSE reference range effective 2017. LAB L501.1000 7-18 mg/dL Normal BUN 18 LAB L501.1100 0.55-1.02 mg/dL Normal CREAT,SERUM 0.83 Result Comment: The validity of the calculated GFR AND GFRAA in patients over 70 years has not been determined. Clinical correlation is essential. LAB L501.1110 >60 mL/min Normal EST GFR 72 Result Comment: Non- GFR Calc LAB L501.1115 >60 mL/min Normal EST GFR - AA 87 Result Comment: GFR Calc LAB L501.1300 10-20 RATIO High BUN/CRE 21.7 LAB L501.2200 8.5-10.1 mg/dL CA Normal 8.9 LAB L501.5300 136-145 mmol/L NA Normal 142 LAB L501.5600 3.5-5.1 mmol/L K Normal 3.9 LAB L501.5900 98-107 mmol/L High CL 108 LAB L501.6100 21.0-32.0 mmol/L Normal CO2 26.0 LAB L501.6200 5-15 Normal GAP 8 Performed By: #### L500.2500 #### [facility] [address] [place], [address] CBC W/DIFF, AUTOMATED Collected: 01/04/2018 Status: F Source: [place] 9:27 AM [facility] REPOSITORY Order Comment: Order Date: 12/08/17 Order Info: 0184-1 - CBCD TYPE CODE TESTS RESULT OUT OF RANGE REFERENCE UNITS LAB L100.1000 4.4-11.0 K/mm3 Normal WBC 5.6 LAB L100.1200 4.2-5.4 M/mm3 Normal RBC 4.60 LAB L100.1300 12.0-15.0 g/dl Normal HGB 13.7 LAB L100.1400 37-47 % Normal HCT 43.5 LAB L100.1500 81-99 fL Normal MCV 94.6 LAB L100.1600 27.0-32.0 pg Normal MCH 29.8 LAB L100.1700 32-36 g/gl Low MCHC 31.5 LAB L100.1810 11.6-14.6 % Normal RDW CV 13.1 LAB L100.1820 35.1-43.9 fl High RDW SD 45.0 LAB L100.1900 150-450 K/mm3 Normal PLT 212 LAB L100.2000 6.2-12.0 fl Normal MPV 10.2 LAB L100.2100 47-70 % Normal NEUT% 67.3 LAB L100.2200 19-41 % Normal LY% 20.7 LAB L100.2300 0-10 % Normal MONO% 5.2 LAB L100.2400 0-5 % High EO% 5.9 LAB L100.2500 0-1 % Normal BASO% 0.5 LAB L100.2550 0.0-0.9 % Normal IM GRAN % 0.400 Result Comment: IG% - Immature Granulocytes (promyelocytes, myelocytes and metamyelocytes) > 1% indicates that a LEFT SHIFT is Present. LAB L100.2620 2.0-7.7 X10 3/uL Normal Absolute Neut 3.7 LAB L100.2720 0.83-4.51 X10 3/ul Normal Absolute Lymph 1.15 Performed By: #### L100.0100, L500.4050, L501.2300, L501.5200, L501.9520, L506.0400, L506.1000 #### [facility] [address] [facility]. [place], [place], [address] COMPREHENSIVE METABOLIC Collected: 01/04/2018 Status: F Source: [place] BRANTLEY 9:27 AM [facility] REPOSITORY Order Comment: Order Date: 12/08/17 Order Info: 0786-1 - CMP Order Info: 2777-1 - PHOS Order Info: 19095-1 - MG Order Info: 3016-3 - TSH Order Info: 3024-7 - T4F TYPE CODE TESTS RESULT OUT OF RANGE REFERENCE UNITS LAB L501.0100 74-106 mg/dL High GLU 205 Result Comment: Glucose result greater than or equal to 200 mg/dL suggests DIABETES MELLITUS per A.D.A. criteria. Please note revised GLUCOSE reference range effective 2017. LAB L501.1000 7-18 mg/dL Normal BUN 17 LAB L501.1100 0.55-1.02 mg/dL Normal CREAT,SERUM 0.76 Result Comment: The validity of the calculated GFR AND GFRAA in patients over 70 years has not been determined. Clinical correlation is essential. LAB L501.1110 >60 mL/min Normal EST GFR 80 Result Comment: Non- GFR Calc LAB L501.1115 >60 mL/min Normal EST GFR - AA 96 Result Comment: GFR Calc LAB L501.1300 10-20 RATIO High BUN/CRE 22.3 LAB L501.1500 6.4-8.2 g/dL T Normal PROT 6.9 LAB L501.1800 3.2-5.0 g/dL Normal ALB 3.6 LAB L501.1950 2.2-4.2 g/dL Normal GLOB 3.3 LAB L501.2000 0.9-2.4 RATIO Normal A/G 1.1 LAB L501.2200 8.5-10.1 mg/dL CA Normal 8.6 LAB L501.4100 15-37 U/L Normal AST 17 LAB L501.4305 45-117 U/L Normal ALK P 79 LAB L501.4405 13-56 U/L Normal ALT 22 LAB L501.4600 0.20-1.00 mg/dL T Normal BILI 0.30 LAB L501.5300 136-145 mmol/L NA Normal 141 LAB L501.5600 3.5-5.1 mmol/L K Normal 3.7 LAB L501.5900 98-107 mmol/L High CL 109 LAB L501.6100 21.0-32.0 mmol/L Normal CO2 26.0 LAB L501.6200 5-15 Normal GAP 6 Performed By: #### L100.0100, L500.4050, L501.2300, L501.5200, L501.9520, L506.0400, L506.1000 #### [facility] [address] [place], [address] PHOSPHORUS Collected: 01/04/2018 Status: F Source: [place] 9:27 AM [facility] REPOSITORY Order Comment: Order Date: 12/08/17 Order Info: 0786-1 - CMP Order Info: 27702-12 - PHOS Order Info: 75862-0 - MG Order Info: 3 - TSH Order Info: 7 - T4F TYPE CODE TESTS RESULT OUT OF RANGE REFERENCE UNITS LAB L501.2300 2.5-4.9 mg/dL Low PHOS 2.1 Performed By: #### L100.0100, L500.4050, L501.2300, L501.5200, L501.9520, L506.0400, L506.1000 #### [facility] [address] [place], [place], [address] MAGNESIUM Collected: 01/04/2018 Status: F Source: [place] 9:27 AM [facility] REPOSITORY Order Comment: Order Date: 12/08/17 Order Info: 07 - CMP Order Info: 2776-08 - PHOS Order Info: 15825-9 - MG Order Info: 3015-10 - TSH Order Info: 3024-02 - T4F TYPE CODE TESTS RESULT OUT OF RANGE REFERENCE UNITS LAB L501.5200 1.6-2.6 mg/dL Normal MG 1.9 Performed By: #### L100.0100, L500.4050, L501.2300, L501.5200, L501.9520, L506.0400, L506.1000 #### [facility] [address] [place], [place], [id number] THYROID STIM HORMONE Collected: 01/04/2018 Status: F Source: [place] (TSH) 9:27 AM [facility] REPOSITORY Order Comment: Order Date: 12/08/17 Order Info: 0786 - CMP Order Info: 2776-08 - PHOS Order Info: 22959-0 - MG Order Info: 3 - TSH Order Info: 3027 - T4F TYPE CODE TESTS RESULT OUT OF RANGE REFERENCE UNITS LAB L501.9520 0.358-3.74 uIU/mL Normal TSH 2.05 Performed By: #### L100.0100, L500.4050, L501.2300, L501.5200, L501.9520, L506.0400, L506.1000 #### [facility] [address] [place], [address] T4 FREE DIRECT Collected: 01/04/2018 Status: F Source: [place] 9:27 AM [facility] REPOSITORY Order Comment: Order Date: 12/08/17 Order Info: 0786-1 - CMP Order Info: 2777-1 - PHOS Order Info: 80608-4 - MG Order Info: 3016-3 - TSH Order Info: 3024-7 - T4F TYPE CODE TESTS RESULT OUT OF RANGE REFERENCE UNITS LAB L506.0400 0.76-1.46 ng/dL Normal T4 FREE 1.45 DIRECT Performed By: #### L100.0100, L500.4050, L501.2300, L501.5200, L501.9520, L506.0400, L506.1000 #### [facility] [address] [place], [address] VITAMIN D,25 HYDROXY Collected: 01/04/2018 Status: F Source: [place] 9:27 AM [facility] REPOSITORY Order Comment: Order Date: 12/08/17 Order Info: 44109-2 - VITD25 TYPE CODE TESTS RESULT OUT OF REFERENCE UNITS RANGE LAB L506.1000 29.95-100.01 ng/mL Low Vitamin D 28.0 25-OH Result Comment: Vitamin D 25(OH) Status Range Deficiency <20 ng/mL (50nmol/L) Insuffciency 20 - 30 ng/mL (50 - 75 nmol/L) Sufficiency 30 - 100 ng/mL (75 - 250 nmol/L) Toxicity >100 ng/mL (>250 nmol/L) Performed By: #### L100.0100, L500.4050, L501.2300, L501.5200, L501.9520, L506.0400, L506.1000 #### [facility] [address] [place], [address] URINALYSIS, COMPLETE Collected: 01/04/2018 Status: F Source: [place] 9:27 AM [facility] REPOSITORY Order Comment: How was Urine Obtained? CLEAN CATCH TYPE CODE TESTS RESULT OUT OF RANGE REFERENCE UNITS LAB L400.3000 Yellow COLOR Normal Yellow LAB L400.3050 Clear Normal CLARITY Clear LAB L400.3200 Normal mg/dl High GLUCOSE, UR 250 LAB L400.3300 Negative mg/dL High BILIRUBIN URINE 1 Result Comment: COLOR OF URINE MAY AFFECT DIPSTICK RESULTS. LAB L400.3400 Negative mg/dl High KETONE UR 5 LAB L400.3465 1.002-1.030 Normal SP.GR. DIPSTX 1.025 LAB L400.3550 5.0 - 8.0 pH Normal UR 5.0 LAB L400.3600 Negative mg/dl Normal PROT DIPSTX Negative LAB L400.3700 Normal mg/dl High UROBILI 1 LAB L400.3750 Negative Normal NITRITE UR Negative LAB L400.3780 Negative /ul High OCCULT 25 BLOOD-UR LAB L400.3800 Negative /ul Normal LEUK ESTERASE Negative LAB L400.4050 0-5 /hpf Normal WBC 0-5 SEEN LAB L400.4100 0-5 /hpf Normal RBC-UA 0 SEEN LAB L400.4150 5-10 /hpf Normal SQUAM EPI 0-5 SEEN LAB L400.4300 None Seen /hpf Normal BACTERIA RARE LAB L400.4350 <or=2+ /hpf Normal MUCUS, URINE 0 SEEN LAB L400.4700 <or=2+ /hpf CA Normal OX CRYSTAL 1+ Performed By: #### L400.0001 #### [facility] [address] [place], [place], [address] HEMOGLOBIN A1C Collected: 01/04/2018 Status: F Source: [place] 9:27 AM [facility] REPOS[facility]ORY Order Comment: PLEASE ADD A1C TO BLOOD DRAWN THIS AM PER TYPE CODE TESTS RESULT OUT OF RANGE REFERENCE UNITS LAB L501.9985 4.2-6.3 % High HGB A1C 6.5 Performed By: #### L501.9985 #### [facility] [address] [place], [address] OPERATIVE PROCEDURES Observed: 01/02/2018 Status: F Source: RONEY LEAHY 3:45 PM [facility] REPOSITORY [facility] OPERATIVE REPORT NAME ACCOUNT SEX AGE ADMIT DISCHARGE PT MED. RECORD# NUMBER DATE DATE TYPE GERALDINE [id number] F 72 01/02/18 Jose Francisco Garcia [address] ROOM: [facility] DATE OF : 1945 DICTATING PHYSICIAN: Cynthia Keyes DATE OF SURGERY: January 02, 2018 SURGEON: Cynthia Keyes MD SCREEN PRINTING LOADER UNLOADER: ANESTHESIOLOGIST: Ute Steel CRNA/Ismael Curiel MD ANESTHETIC: PREOPERATIVE DIAGNOSIS: POSTOPERATIVE DIAGNOSES: Screening colonoscopy, diverticulosis, hemorrhoids. OPERATION PERFORMED: Colonoscopy. COMPLICATIONS: ESTIMATED BLOOD LOSS: Minimal. SPECIMEN: None. DISPOSITION: Stable, to recovery. INDICATIONS: Susan Chandler is a pleasant 72-year-old lady who presents for screening endoscopy. After informed consent, she was examined as follows. DESCRIPTION OF OPERATION: She was brought to endoscopy. She was placed on a padded gurney in the left lateral decubitus position with adequate padding of pressure points. Time-out verification was done. She was given intravenous sedation per Anesthesia with monitoring throughout. Digital examination showed some external hemorrhoidal tags, normal tone, and no discrete mass. The Olympus flexible colonoscope was advanced through the rectal vault and then through the rather tortuous sigmoid colon, where there were some scattered diverticula. The scope was advanced through the descending colon, beyond the splenic flexure, transverse colon, hepatic flexure, and ascending colon toward the ileocecal junction. The landmarks were Page 1 of 2 SUSAN CHANDLER Operative Report noted. Prep was fair. The scope was carefully rotated with irrigation and suctioning in a yrgf-mpp-vakhl movement to improve the view. The scope was withdrawn. The cecum and ascending colon appeared to be unremarkable. The transverse, descending and sigmoid colon were viewed. There were a few scattered diverticula, but there was no mass, no polypoid structure, no stricture, and no angiodysplasia. No biopsies were taken. The scope was withdrawn into the rectal vault, retroflexed, rotated, straightened out, and withdrawn with decompression. There were some internal and external hemorrhoids, but there was no tear, no fissure and no fungating mass. The patient tolerated the procedure well and was sent to recovery in stable condition. She can have repeat endoscopy in 10 years unless she has GI bleeding or other risk factors which would precipitate an earlier view. She was stable and sent to the recovery room in good condition. The case will be discussed with her when she is more awake. Dictated By: Cynthia Keyes MD 01/02/18 12:34 JOB #: [id number] Transcribed By: bentley 01/02/18 12:43 Electronically signed by: E-Sign Dr. Cynthia [place] MD 01/02/18 15:44 Page 2 of 2 SUSAN CHANDLER Operative Report DEXA BONE DENSITY/APPEND Observed: 12/13/2017 Status: F Source: [place] SKEL 12:27 PM [facility] REPOSITORY [facility] Imaging Services [address] [place] [address] Dexa Bone Density/Append Skel MR#: [id number] Acct: [id number] Name: SUSAN CHANDLER Rep #: [id number] : 1945 F 72 From: Hesham Silver DO PCP: Terrance Luna MD Status: REG CLI Study: Dexa Bone Density/Append Skel Date of Exam: 12/13/17 Exam# [id number] Ordering Dr: Terrance Luna MD STUDY: DUAL ENERGY X-RAY ABSORPTIOMETRY / DXA REASON FOR EXAM: Female, 72 years old. Postmenopausal female. Smoker. Patient taking Boniva and calcium. Family history of osteoporosis. History of lumbar fusion and right hip replacement. TECHNIQUE: Bone Mineral Density (BMD) measurements of bilateral forearms were obtained. COMPARISON: None. FINDINGS: Right Forearm: g/cm2 (0.798) / T-score (-1.0) / Z-score (0.9) Left Forearm: g/cm2 (0.894) / T-score (0.1) / Z-score (1.9) BD/Dexa Bone Density/Append Skel IMPRESSION: The patient is considered normal as outlined below according to World Andrei Organization (WHO) criteria with a low fracture risk. Reference Information: The T-score is the number of standard deviations above or below the standard which is normal for young adults at their peak bone mineral density. The World Health Organization (WHO) interprets the T-scores as follows: Above -1 Normal bone density Between -1 and -2.5 Osteopenia Equal to / or below -2.5 Osteoporosis As a practical clinical guideline, osteopenia may be graded as follows: Mild -1 through -1.5 Moderate -1.6 through -2.0 Severe -2.1 through -2.4 The Z-score is the number of standard deviations above or below age-matched controls. A Z-score of less than -1.5 would be considered abnormal. References: 1. NIH Osteoporosis and Related Bone Diseases http://www.osteo.org 2. International Society for Clinical Densitometry http://www.iscd.org 3. National Osteoporosis Foundation http://www.nof.org Electronically Signed: Hesham Silver DO at 8:36 EDT Tel [phone], Service support , CC: Terrance [place] MD Metal Stamper: Signed 12 LEAD ELECTROCARDIOGRAM Observed: 12/05/2017 Status: F Source: [place] 2:46 PM [facility] REPOSITORY [facility] Cardiovascular Services [address] [place] [address] 12 Lead EKG 12/02/17 1016 MR#: [id number] Acct: [id number] Name: SUSAN CHANDLER Rep #: [id number] : 1945 72 From: Porfirio Deras MD Attending Dr: CYNTHIA KEYES Status: REG CLI Ordering Dr: Cynthia Keyes Date: 12/02/17 Location: LAB Sex: F C Admitted: Test Reason : PRE-OP Blood Pressure : / mmHG Vent. Rate : 064 BPM Atrial Rate : 064 BPM P-R Int : 156 ms QRS Dur : 080 ms QT Int : 392 ms P-R-T Axes : 033 036 030 degrees QTc Int : 404 ms Normal sinus rhythm Normal ECG Confirmed by BRAEDEN JOYA, PORFIRIO ([id number]), magazine editor CARINA [place] ([id number]) on 12/05/2017 2:46:16 PM Referred By: CYNTHIA KEYES Confirmed By:PORFIRIO DERAS MD 12/05/17 1446 Date Porfirio Deras MD CC: CYNTHIA KEYES; Trent Peterson Signed CBC-COMPLETE BLOOD CNT Collected: 12/02/2017 Status: F Source: [place] NO DIFF 10:00 AM [facility] REPOSITORY TYPE CODE TESTS RESULT OUT OF RANGE REFERENCE UNITS LAB L100.1000 4.4-11.0 K/mm3 Normal WBC 8.6 LAB L100.1200 4.2-5.4 M/mm3 Normal RBC 4.80 LAB L100.1300 12.0-15.0 g/dl Normal HGB 14.9 LAB L100.1400 37-47 % Normal HCT 45.3 LAB L100.1500 81-99 fL Normal MCV 94.4 LAB L100.1600 27.0-32.0 pg Normal MCH 31.0 LAB L100.1700 32-36 g/gl Normal MCHC 32.9 LAB L100.1810 11.6-14.6 % Normal RDW CV 12.7 LAB L100.1820 35.1-43.9 fl Normal RDW SD 43.0 LAB L100.1900 150-450 K/mm3 Normal PLT 240 LAB L100.2000 6.2-12.0 fl Normal MPV 9.7 Performed By: #### L100.0500 #### [facility] [address] [facility] [place], [address] SCREENING MAMM (CAD), Observed: 11/07/2017 Status: F Source: KAV[place] BILAT 7:01 AM [facility] REPOSITORY [facility] Imaging Services [address] [place] [address] SCREENING MAMM (CAD), BILAT MR#: [id number] Acct: [id number] Name: SUSAN CHANDLER Rep #: [id number] : 1945 F 72 From: Drake Belle MD PCP: Trent Peterson Status: REG CLI Study: SCREENING MAMM (CAD), BILAT Date of Exam: 11/07/17 Exam# [id number] Ordering Dr: Trent Peterson MAMMOGRAPHY - BILATERAL SCREENING 3-D ASH SYNTHESIS REASON FOR EXAM: Female, 72 years old. Bilateral Screening 3-D tomosynthesis PERTINENT HISTORY: History of benign breast biopsy.. TECHNIQUE: 2-D mammograms and 3-D Ash synthesis of the breast (s) were performed. CAD was performed. COMPARISON: None. FINDINGS: The breast composition is composed of scattered fibroglandular density. Scattered benign calcifications are seen. No dense spiculated masses or suspicious microcalcifications are identified. No architectural distortion is identified. There is no skin thickening or retraction. There has been no significant change since the prior study. HPBI/SCREENING MAMM (CAD), BILAT IMPRESSION: No mammographic signs of malignancy. Routine yearly mammograms recommended. ASSESSMENT CATEGORY: BIRADS Category 2: Benign. A letter regarding these results will be sent to the patient by the facility within 30 days. FOLLOW UP RECOMMENDATION: Yearly follow up mammogram recommended. (A) Approximately 10% of breast cancers are not detected by mammography. A normal mammogram should not delay biopsy of a clinically suspicious abnormality. Electronically Signed: Michael Belle MD at 10:00 EDT , Service support , CC: Trent Peterson Metal Stamper: Signed ALLERGIES ALLERGIES DATE TYPE / CODE NAME / CODE REACTION SEVERITY SOURCE Drug PENICILLINS Moderate Roney Pomerene Allergy/416 (CLASS)/[id number](R ([facility] 360261(SNOM XNORM) Modifier) Hospital ED CT) (Qualifier Repository Value) ENCOUNTERS ENCOUNTERS ADMIT/DISCHARGE ACCOUNT ADMITTING ENCOUNTER LOCATION SOURCE NUMBER CLASS 08/31/2018 [id number] Amb[place] [facility] ing:MFPLAB Repository 07/24/2018 [id number] Ambulatory [place] 0 [facility] ing:MTLAB Repository 06/30/2018 [id number] Ambulatory [place] [facility] ing:RAD Repository 06/21/2018/ [id number] Ambulatory [place] 0 [facility] ing:DC Repository 05/18/2018/ [id number] Ambulatory [place] 1 [facility] ing:DC Repository 05/03/2018 [id number] Ambulatory [place] 4 [facility] Hospital ing:CT Repository 05/03/2018/ [id number] Ambulatory [place] 3 [facility] ing:DC Repository 04/20/2018 [id number] Ambulatory [place] 2 [facility] Hospital ing:LAB Repository 04/03/2018 [id number] Ambulatory [place] 3 [facility] Hospital ing:MFPLAB Repository 03/07/2018/ [id number] Ambulatory [place] 6 [facility] ing:DC Repository 02/08/2018 [id number] Ambulatory [place] 3 [facility] ing:MFPLAB Repository 01/24/2018/ [id number] Ambulatory [place] 7 [facility] ing:DC Repository 01/04/2018 [id number] Ambulatory [place] 2 [facility] Hospital ing:MFPLAB Repository 01/02/2018/ [id number] CYNTHIA KEYES Ambulatory [address] [place] [address] oom: [address] Repository 12/13/2017 [id number] Ambulatory [place] 4 [facility] Hospital ing:OPBD Repository 12/02/2017 [id number] Ambulatory [place] 3 [facility] Hospital ing:LAB Repository 12/02/2017 [id number] Ambulatory BMSBuilding:W [place] 2 [facility] Repository 12/01/2017 [id number] CYNTHIA KEYES [facility] Repository 11/07/2017 [id number] Ambulatory [place] [facility] Hospital ing:BI Repository PAYERS PAYERS ENCOUNTER GUARANTOR PAYER SUBSCRIBER SOURCE 08/31/2018 SUSAN Garcia Primary Insurance:BRIAN CHANDLER665 [facility] PLAN COOPERDOB: [facility] Number: [id number] [id number] Repository [address]Ddg: (330) Date:2738-84-80[phone] ([facility] [place] [address]LX: 08/31/2018 Secondary NOT GIVENUNK [place] Insurance:SELF PAY [facility] Number: Effective Repository Date:2018-08-31 07/24/2018 SUSAN Garcia Primary Insurance:BRIAN Garcia [place] [id number] [employer] PL[employer] COOPERDOB: [facility] Number: [id number], [place] [id number] Repository [address]Mvv: (330) Date:8615-12-39[phone] ([place]) [place], [place] [address]LN: 07/24/2018 Secondary NOT GIVENUNK [place] Insurance:SELF PAY [facility] Number: Effective Repository Date:2018-07-24 06/30/2018 SUSAN Garcia Primary Insurance:BRIAN Garcia [place] [id number] [facility] COOPERDOB: [facility] Number: [id number], [place] [id number] Repository [address]Oiw: (330) Date:7832-76-43[phone] ([place]) [place], [place] [address]FV: 06/30/2018 Secondary NOT GIVENUNK [place] Insurance:SELF PAY [facility] Number: Effective Repository Date:2018-06-30 06/21/2018 SUSAN Garcia Primary Insurance:BRIAN Garcia [place] [id number] [facility] COOPERDOB: [facility] Number: [id number], [place] [id number] Repository [address]Wia: (330) Date:9127-89-04[phone] ([place]) [place], [place] [address]WY: 06/21/2018 Secondary NOT GIVENUNK [place] Insurance:SELF PAY [facility] Number: Effective Repository Date:2018-06-15 2018 SUSAN Garcia Primary Insurance:BRIAN Garcia [place] [id number] [facility] COOPERDOB: [facility] Number: [id number], [place] [id number] Repository [address]Izw: (330) Date:4459-74-68[phone] (HP) [address], [place] [address]XM: 2018 Secondary NOT GIVENUNK [place] Insurance:SELF PAY [facility] Number: Effective Repository Date:2018-05-15 05/03/2018 SUSAN S Primary Insurance:BRIANLT SUSAN Garcia [place] [id number] [facility] COOPERDOB: [facility] Number: [id number], [place] [id number] Repository [address]Jct: (330) Date:1603-33-04[phone] (HP) [address], [place] [address]EB: 05/03/2018 Secondary NOT GIVENUNK [place] Insurance:SELF PAY [facility] Number: Effective Repository Date:2018-04-07 05/03/2018 SUSAN S Primary Insurance:BRIAN Garcia [place] [id number] [facility] COOPERDOB: [facility] Number: [id number], [place] [id number] Repository [address]Ljq: (330) Date:0401-96-19[phone] (HP) [address], [place] [address]EC: 05/03/2018 Secondary NOT GIVENUNK [place] Insurance:SELF PAY [facility] Number: Effective Repository Date:2018-03-15 04/20/2018 SUSAN S Primary Insurance:BRIAN Garcia [place] [id number] [employer] PL[employer] COOPERDOB: [facility] Number: [id number], [place] [id number] Repository [address]Wnv: (330) Date:3909-17-75ZB [phone] (HP) [address], [place] [address]JQ: 04/20/2018 Secondary NOT GIVENUNK [place] Insurance:SELF PAY [facility] Number: Effective Repository Date:2018-04-20 04/03/2018 SUSAN Garcia Primary Insurance:BRIAN Garcia [place] [id number] [employer] COOPERDOB: [facility] Number: [id number], [place] [id number] Repository [address]Hus: (330) Date:4714-86-54[phone] (HP) [address], [place] [address]SR: 04/03/2018 Secondary NOT GIVENUNK [place] Insurance:SELF PAY [facility] Number: Effective Repository Date:2018-04-03 03/07/2018 SUSAN Garcia Primary Insurance:BRIAN Garcia [place] [id number] [employer] PL[employer] COOPERDOB: [facility] Number: [id number], [place] [id number] Repository [address]Fad: (330) Date:3491-64-17[phone] (HP) [address], [place] [address]HD: 03/07/2018 Secondary NOT GIVENUNK [place] Insurance:SELF PAY [facility] Number: Effective Repository Date:2018-02-12 02/08/2018 SUSAN Garcia Primary Insurance:BRIAN Garcia [place] [id number] [employer] PLAN COOPERDOB: [facility] Number: [id number], [place] [id number] Repository [address]Dtd: (330) Date:6281-42-92[phone] (HP) [address], [place] [address]ZO: 02/08/2018 Secondary NOT GIVENUNK [place] Insurance:SELF PAY [facility] Number: Effective Repository Date:2018-02-08 01/24/2018 SUSAN Garcia Primary Insurance:BRIAN Garcia [place] [id number] PRIMETIME HEALTH PLAN COOPERDOB: [facility] Number: [id number] [id number] Repository [address]Uvj: (330) Date:0206-09-02[phone] (HP) [place], [place] [address]LS: 01/24/2018 Secondary NOT GIVENUNK [place] Insurance:SELF PAY [facility] Number: Effective Repository Date:2018-01-18 01/04/2018 SUSAN Garcia Primary Insurance:BRIAN Garcia [place] [id number] [facility] COOPERDOB: [facility] Number: [id number], [place] [id number] Repository 11[address]Qyv: (330) Date:5954-40-41[address]X [phone] (HP) [address], [place] [address]WP: 01/04/2018 Secondary NOT GIVENUNK [place] Insurance:SELF PAY [facility] Number: Effective Repository Date:2018-01-04 01/02/2018 SUSAN Primary SUSAN COOPERDOB: Roney Leahy COOPERDOB: Insurance:PRIMETIME [id number] [facility] [id number] Number: 292[place] [id number] [place] [id number]: (330) Date:Plan Name:P O [phone] (HP) [address], [place] [phone]: 12/13/2017 SUSAN Garcia Primary Insurance:BRIAN Garcia [place] [id number] [facility] COOPERDOB: [facility] Number: [id number], [place] [id number] Repository [address]Hhz: (330) Date:1292-70-92[phone] (HP) [address], [place] [address]IU: 12/13/2017 Secondary NOT GIVENUNK [place] Insurance:SELF PAY [facility] Number: Effective Repository Date:2017-12-09 12/02/2017 BLAKE Primary Insurance:BRIAN Vale [id number] [facility] COOPERDOB: [facility] Number: [id number], [place] [id number] Repository [address]Ysr: (330) Date:2037-92-41[phone] (HP) [address], [place] [address]LN: 12/02/2017 Secondary NOT GIVENUNK [place] Insurance:SELF PAY [facility] Number: Effective Repository Date:2017-12-02 12/02/2017 [facility] Primary Insurance:BRIAN Vale [id number] [facility] COOPERDOB: [facility] Number: [id number], [place] [id number] Repository [address]Jke: (330) Date:3230-78-52V[phone] (HP) [address], [place] [phone]: 12/02/2017 Secondary NOT GIVENUNK [place] Insurance:SELF PAY [facility] Number: Effective Repository Date:2017-12-02 12/01/2017 SUSAN Primary SUSAN COOPERDOB: Roney Leahy COOPERDOB: [facility] [id number] [facility] [id number] [facility] Number: [address], [id number] [address] [place] [address]Sly: Date:Plan Name: () 11/07/2017 Blake Primary Insurance:BRIAN Vale [id number] [facility] COOPERDOB: [facility] Number: [id number] [place] [id number] Repository 175[address]Eqz: (330) Date:4191-10-87XK [phone] (HP) [address], [place] [phone]: 11/07/2017 Secondary NOT GIVENUNK [place] Insurance:SELF PAY [facility] Number: Effective Repository Date:2017-10-19
== END ==
PROVIDERS: Family Provider Family Medicine; PCP Family Medicine; Referring Provider Internal Medicine Pulmonary Disease; Visit Provider Internal Medicine Pulmonary Disease
DX: R05 Cough (principal)
CPT/HCPCS: 36415; 82164; 85027; 85048; 85652

== ENCOUNTER → 2018-08-31 11:06 | Outpatient (CLI) | payer MEDICARE, SELFPAY ==
[2018-08-31 11:10] LABS: Red Blood Cells-Urine 0 SEEN /hpf (0-5)
[2018-08-31 12:28] LABS: Absolute Lymphocyte Count 1.71 X10^3/ul (0.83-4.51); Absolute Neutrophil Count 4.8 X10^3/uL (2.0-7.7); Basophil# 0.05 X10^3/uL; Basophil% 0.7 % (0-1); Eosinophil# 0.23 X10^3/uL; Eosinophils% 3.1 % (0-5); Hematocrit 41.8 % (37-47); Hemoglobin 13.4 g/dl (12.0-15.0); Lymphocyte # 1.71 X10^3/ul (4.0); Lymphocyte % 22.9 % (19-41); Mean Corp Hgb Conc 32.1 g/gl (32-36); Mean Corpuscular Hgb 29.6 pg (27.0-32.0); Mean Corpuscular Volume 92.3 fL (81-99); Mean Platelet Vol. 9.7 fl (6.2-12.0); Monocyte# 0.63 X10^3/uL; Monocyte% 8.4 % (0-10); Neutrophil # 4.84 X10^3/uL (2.7-7.7); Neutrophil % 64.6 % (47-70); Platelet Count 271 K/mm3 (150-450); RBC Distribution Width CV 12.5 % (11.6-14.6); RBC Distribution Width SD 42.1 fl (35.1-43.9); Red Blood Count 4.53 M/mm3 (4.2-5.4); White Blood Count 7.5 K/mm3 (4.4-11.0)
[2018-08-31 12:34] LABS: POSITIVE COUNT NO; POSITIVE DIFFERENTIAL NO; POSITIVE MORPHOLOGY NO
[2018-08-31 12:43] LABS: Color, Urine Yellow (Yellow); Glucose, Dipstick Normal (Normal); Ketone-Dipstick Negative (Negative); Leukocyte Esterase-Dipstick Negative /ul (Negative); Nitrite-Dipstick Negative (Negative); Occult Blood-Urine 25 /ul (Negative); Protein-Dipstick Negative (Negative); Urine Bilirubin Dipstick Negative (Negative); Urine Clarity Sl. Cloudy (Clear); Urine Urobilinogen Normal (Normal)
[2018-08-31 12:48] LABS: Hemoglobin A1c 6.2 % (4.2-6.3)
[2018-08-31 12:50] LABS: AST(SGOT) 16 U/L (15-37); Alanine Aminotransfer ALT/SGPT 21 U/L (13-56); Albumin, Serum 3.7 g/dL (3.2-5.0); Alkaline Phosphatase 76 U/L (45-117); Anion Gap 11 (5-15); BUN 26 mg/dL (7-18); BUN/Creat Ratio 35.4 RATIO (10-20); Calcium,Total 9.3 mg/dL (8.5-10.1); Chloride 106 mmol/L (98-107); Creatinine, Serum 0.73 mg/dL (0.55-1.02); EST Glomerular Filtration Rate 83 mL/min (>60); Est Glom Filt Rate - Afr Amer 100 mL/min (>60); Globulin 3.6 g/dL (2.2-4.2); Glucose 85 mg/dL (74-106); Magnesium 2.1 mg/dL (1.6-2.6); Potassium 4.1 mmol/L (3.5-5.1); Protein, Total 7.3 g/dL (6.4-8.2); Sodium Level 142 mmol/L (136-145)
[2018-08-31 13:07] LABS: Bacteria 2+ /hpf (None Seen); Microalbumin,Random Urine 12.1 mg/L (NO RANGE EST.); Mucous, Urine 3+ /hpf (<or=2+); Squamous Epithelial Cells - UA 5-10 SEEN /hpf (5-10); White Blood Cells 0-5 SEEN /hpf (0-5)
[2018-08-31 13:54] LABS: Vitamin D,25 Hydroxy 49.9 ng/mL (29.95-100.01)
--- OUTSIDE RECORDS SUMMARY | 2018-11-05 02:26 | XMS RPT_ITS ---
:1945 Author Organization OHIP Support Name Relationship Address Phone GERALDINEBLAKE Unavailable [address] + [place] [address] R Unavailable Unavailable Unavailable BLAKE CHANDLER Unavailable [address] + [place] [address] R Unavailable Unavailable Unavailable BLAKE CHANDLER Unavailable [address] + [place] [address] R Unavailable Unavailable Unavailable BLAKE CHANDLER Unavailable [address] + [place] [address] R Unavailable Unavailable Unavailable BLAKE CHANDLER Unavailable [address] + [place] [address] R Unavailable Unavailable Unavailable BLAKE CHANDLER Unavailable [address] + [place] [address] R Unavailable Unavailable Unavailable BLAKE CHANDLER Unavailable [address] + [place] [address] R Unavailable Unavailable Unavailable BLAKE CHANDLER Unavailable [address] + [place] [address] R Unavailable Unavailable Unavailable BLAKE CHANDLER Unavailable [address] + [place] [address] R Unavailable Unavailable Unavailable BLAKE CHANDLER Unavailable [address] + [place] [address] R Unavailable Unavailable Unavailable BLAKE CHANDLER Unavailable [address] + [place] [address] R Unavailable Unavailable Unavailable BLAKE CHANDLER Unavailable [address] + [place] [address] R Unavailable Unavailable Unavailable BLAKE CHANDLER Unavailable [address] + [place] [address] R Unavailable Unavailable Unavailable BLAKE CHANDLER Unavailable [address] + [place], [place] [phone] BLAKE CHANDLER Unavailable [address] Unavailable [place], [place] [phone] NOT GIVEN Unavailable Unavailable Unavailable BLAKE CHANDLER Unavailable [address] + [place] [address] R Unavailable Unavailable Unavailable BLAKE CHANDLER Unavailable [address] + [place] [address] R Unavailable Unavailable Unavailable BLAKE CHANDLER Unavailable [address] + [place] [address] R Unavailable Unavailable Unavailable NOT GIVEN Unavailable Unavailable Unavailable BLAKE CHANDLER Unavailable [address] + [place] [address] R Unavailable Unavailable Unavailable Care Team Providers Name Role Phone CYNTHIA KEYES Admitting Unavailable CYNTHIA KEYES Attending Unavailable CYNTHIA KEYES Primary Care Unavailable TRENT PETERSON Consulting Unavailable PROVIDER, UNKNOWN Consulting Unavailable PROVIDER, UNKNOWN Consulting Unavailable PROVIDER, UNKNOWN Consulting Unavailable CYNTHIA KEYES Admitting Unavailable CYNTHIA KEYES Attending Unavailable CYNTHIA KEYES Primary Care Unavailable TERRANCE LUNA Referring Unavailable TERRANCE LUNA Consulting Unavailable PROVIDER, UNKNOWN Consulting Unavailable Zaki Kinney [...] KEYES Referring Unavailable SchTerrance pate Attending Unavailable SchinTerrance ruiz Primary Care Unavailable SchTerrance pate Attending Unavailable [...] Unavailable Zaki Kinney Referring Unavailable SchTerrance pate E Primary Care Unavailable SchTerrance pate Attending Unavailable Terrance Luna Primary Care Unavailable Terrance Luna Attending Unavailable Terrance Luna Primary Care Unavailable Terrance uLna Attending Unavailable Terrance Luna Referring Unavailable Terrance Luna Primary Care Unavailable PROBLEMS PROBLEMS DATE TYPE CONDITION / CODE ATTENDING STATUS SOURCE 06/30/2018 Unknown J20.9 - Acute Annecoriesara Terrance Active [place] bronchitis, E Community unspecified / Hospital J20.9(ICD-10) Repository 06/22/2018 Unknown E11.9 - Type 2 Celeste Terrance Active [place] diabetes mellitus E Community without Hospital complications / Repository E11.9(ICD-10) 04/20/2018 Unknown 250.00 - Diabetes Celeste Terrance Active [place] mellitus without E Community mention of Hospital complication, type Repository II or unspecified type, not stated as uncontrolled / 250.00(ICD-9) 12/02/2017 Unknown Z86.010 - Personal CYNTHIA KEYES Active [place] history [facility] polyps / Hospital Z86.010(ICD-10) Repository 01/04/2018 Unknown Z01.810 - Encounter Margarita Deras [place] for preprocedural [facility] examination / Repository Z01.810(ICD-10) 12/01/2017 Principle Personal history of CYNTHIA KEYES Active Roney Leahy Diagnosis colonic polyps / [facility] W78231(ICD-10) Hospital Repository 11/07/2017 Unknown Z12.31 - Encounter Trent Peterson Active [place] for screening [facility] mammogram for [facility] malignant neoplasm Repository of breast / Z12.31(ICD-10) [...] Lymph 1.71 Performed By: #### L100.0100 #### [facility] [address] [place], [place], [address] URINALYSIS, COMPLETE Collected: 08/31/2018 Status: F Source: [place] 11:09 AM [facility] [place] Order Comment: How was Urine Obtained? [...] MUCUS, URINE Performed By: #### L400.0001 #### [facility] [address] [place], [address] HEMOGLOBIN A1C Collected: 08/31/2018 Status: F Source: [place] 11:09 [facility] REPOSITORY TYPE CODE TESTS RESULT OUT OF RANGE REFERENCE UNITS LAB L501.9985 4.2-6.3 % Normal HGB A1C 6.2 Performed By: #### L501.9985 #### [facility] [address] [place], [address] COMPREHENSIVE METABOLIC Collected: 08/31/2018 Status: F Source: [facility] 11:09 [facility] REPOSITORY TYPE CODE TESTS RESULT OUT OF [...] 11 Performed By: #### L500.4050, L501.5200 #### [facility] [address] [place], [place], [address] MAGNESIUM Collected: 08/31/2018 Status: F Source: [place] 11:09 AM [facility] [place] TYPE CODE TESTS RESULT OUT OF RANGE REFERENCE UNITS LAB L501.5200 1.6-2.6 mg/dL Normal MG 2.1 Performed By: #### L500.4050, L501.5200 #### [facility] [address] [place], [place], [address] MICROALB:CREAT Collected: 08/31/2018 Status: F Source: [place] RATIO,RANDOM UR 11:09 AM [facility] [place] TYPE CODE TESTS RESULT OUT OF RANGE REFERENCE UNITS LAB L501.1200 NO RANGE EST. mg/dL Normal UR CREAT 134.00 LAB L502.0500 NO RANGE EST. mg/L Normal 12.1 MICROALBUMIN ,UR LAB L502.0600 <30 mg/g CRE mg/g CRE Normal 9.0 MALB:CREAT Performed By: #### L502.0250 #### [facility] [address] [place], [place], [address] VITAMIN D,25 HYDROXY Collected: 08/31/2018 Status: F Source: [place] 11:09 AM [facility] [place] TYPE CODE TESTS RESULT OUT OF RANGE REFERENCE UNITS LAB L506.1000 29.95-100.01 ng/mL Normal Vitamin D 49.9 25-OH Result Comment: Vitamin D 25(OH) Status Range Deficiency <20 ng/mL (50nmol/L) Insuffciency 20 - 30 ng/mL (50 - 75 nmol/L) Sufficiency 30 - 100 ng/mL (75 - 250 nmol/L) Toxicity >100 ng/mL (>250 nmol/L) Performed By: #### L506.1000 #### [facility] [address] [place], [place], [address] CBC-COMPLETE BLOOD CNT Collected: 07/24/2018 Status: F Source: [place] NO DIFF 3:43 PM [facility] [place] TYPE CODE TESTS RESULT OUT OF [...] Performed By: #### L100.0500, L100.2920, L101.9900 #### [facility] [address] [place], [place], [address] ABSOLUTE EOSINOPHIL Collected: 07/24/2018 Status: F Source: [place] COUNT 3:43 PM [facility] [place] TYPE CODE TESTS RESULT OUT OF REFERENCE UNITS RANGE LAB L100.2920 0.0-0.23 X10 3/uL High Absolute EOS 0.26 Ct Performed By: #### L100.0500, L100.2920, L101.9900 #### [facility] [address] [place], [address] ERYTHROCYTE SED RATE Collected: 07/24/2018 Status: F Source: [place] 3:43 PM [facility] [place] TYPE CODE TESTS RESULT OUT OF RANGE REFERENCE UNITS LAB L102.0000 0-30 mm/hr Normal SED RATE 11 Performed By: #### L100.0500, L100.2920, L101.9900 #### [facility] [address] [place], [address] ANGIOTENSIN CONVERT Collected: 07/24/2018 Status: F Source: [place] ENZYME 3:43 PM [facility] [place] TYPE CODE TESTS RESULT OUT OF RANGE REFERENCE UNITS LAB L3100.6900 14-82 U/L Normal EMY 43785 41 Result Comment: Performed at: - [facility] [place] [id number] Sash Maker: Stephan Mackenzie PhD, Phone: [phone] Performed By: #### L3100.6900 #### [facility] (refer to report for specific site) refer to report for address and phone number CHEST PA AND LATERAL Observed: 06/30/2018 Status: F Source: [place] 9:02 AM [facility] [place] [facility] Imaging Services [address] [place] [address] Chest PA and Lateral MR#: [id number] Acct: [id number] Name: SUSAN CHANDLER Rep #: [id number] : 1945 F 73 From: Summer Wells MD PCP: Terrance [place] MD Status: REG CLI Study: Chest PA and Lateral Date of Exam: 06/30/18 Exam# [id number] Ordering Dr: Terrance [place] MD STUDY: X-RAY [...] Service support , CC: Terrance [place] MD Continuous Linter Drier Operator: Signed LOW DOSE CT LUNG Observed: 05/03/2018 Status: F Source: [place] SCREENING 12:51 PM [facility] [place] [facility] Imaging Services [address] [place] [address] Lung Screening MR#: [id number] Acct: [id number] Name: SUSAN CHANDLER Rep #: [id number] : 1945 F 72 From: Nato Gates MD PCP: Terrance [place] MD Status: REG [facility] Study: Low Dose CT Lung Screening Date of Exam: 05/03/18 Exam# [id number] Ordering Dr: Zaki Kinney MD STUDY: LOW [...] Nato Gates MD at 13:27 EDT Tel [phone], Service support , CC: Terrance Luna MD; Zaki Kinney MD Continuous Linter Drier Operator: Signed BASIC METABOLIC Collected: 04/20/2018 Status: F Source: [place] PROFILE (BMP) 11:53 AM [facility] [place] Order Comment: Order Date: 04/19/18 Order [...] GAP 9 Performed By: #### L500.2500 #### [facility] [address] [place], [place] [address], [address] CBC W/DIFF, AUTOMATED Collected: 04/03/2018 Status: F Source: [place] 9:07 AM [facility] [place] Order Comment: Order Date: 04/03/18 Order [...] #### L100.0100, L501.9985, L506.1000, L500.4050, L502.0250 #### [facility] [address] [place], [place], [address] HEMOGLOBIN A1C Collected: 04/03/2018 Status: F Source: [place] 9:07 AM [facility] [place] Order Comment: Order Date: 04/03/18 Order Info: 4548-4 - A1C TYPE CODE TESTS RESULT OUT OF RANGE REFERENCE UNITS LAB L501.9985 4.2-6.3 % Normal HGB A1C 5.6 Performed By: #### L100.0100, L501.9985, L506.1000, L500.4050, L502.0250 #### [facility] [address] [place], [place], [address] VITAMIN D,25 HYDROXY Collected: 04/03/2018 Status: F Source: [place] 9:07 AM [facility] [place] Order Comment: Order Date: 04/03/18 Order Info: 90479-0 - VITD25 TYPE CODE TESTS RESULT OUT OF RANGE REFERENCE UNITS LAB L506.1000 29.95-100.01 ng/mL Normal Vitamin D 47.3 25-OH Result Comment: Vitamin D 25(OH) Status Range Deficiency <20 ng/mL (50nmol/L) Insuffciency 20 - 30 ng/mL (50 - 75 nmol/L) Sufficiency 30 - 100 ng/mL (75 - 250 nmol/L) Toxicity >100 ng/mL (>250 nmol/L) Performed By: #### L100.0100, L501.9985, L506.1000, L500.4050, L502.0250 #### [facility] [address] [place], [address] COMPREHENSIVE METABOLIC Collected: 04/03/2018 Status: F Source: [place] BRANTLEY 9:07 AM [facility] [place] Order Comment: Order Date: 04/03/18 Order [...] #### L100.0100, L501.9985, L506.1000, L500.4050, L502.0250 #### [facility] [address] [place], [place], [address] MICROALB:CREAT Collected: 04/03/2018 Status: F Source: [place] RATIO,RANDOM UR 9:07 AM [facility] [place] Order Comment: Order Date: 04/03/18 Order Info: 0779-1 - MIACRE TYPE CODE TESTS RESULT OUT OF RANGE REFERENCE UNITS LAB L501.1200 NO RANGE EST. mg/dL Normal UR CREAT 110.00 LAB L502.0500 NO RANGE EST. mg/L Normal 15.0 MICROALBUMIN ,UR LAB L502.0600 <30 mg/g CRE mg/g CRE Normal 13.6 MALB:CREAT Performed By: #### L100.0100, L501.9985, L506.1000, L500.4050, L502.0250 #### [facility] [address] [place], [address] BASIC METABOLIC Collected: 02/08/2018 Status: F Source: [place] PROFILE (BMP) 11:11 AM [facility] [place] TYPE CODE TESTS RESULT OUT OF [...] GAP 8 Performed By: #### L500.2500 #### [facility] [address] [place], [address] CBC W/DIFF, AUTOMATED Collected: 01/04/2018 Status: F Source: [place] 9:27 AM [facility] [place] Order Comment: Order Date: 12/08/17 Order [...] L500.4050, L501.2300, L501.5200, L501.9520, L506.0400, L506.1000 #### [facility] [address] [facility]. [place], [place], [address] COMPREHENSIVE METABOLIC Collected: 01/04/2018 Status: F Source: [place] BRANT[place] 9:27 AM [facility] [place] Order Comment: Order Date: 12/08/17 Order Info: 0786-1 - CMP Order Info: 2777-1 - PHOS Order Info: 96348-0 - MG Order Info: 3016-3 - TSH [...] L500.4050, L501.2300, L501.5200, L501.9520, L506.0400, L506.1000 #### [facility] [address] [place], [address] PHOSPHORUS Collected: 01/04/2018 Status: F Source: [place] 9:27 AM [facility] [place] Order Comment: Order Date: 12/08/17 Order Info: 0786-1 - CMP Order Info: 27702-12 - PHOS Order Info: 42975-1 - MG Order Info: 3 - TSH Order Info: 7 - T4F TYPE CODE TESTS RESULT OUT OF RANGE REFERENCE UNITS LAB L501.2300 2.5-4.9 mg/dL Low PHOS 2.1 Performed By: #### L100.0100, L500.4050, L501.2300, L501.5200, L501.9520, L506.0400, L506.1000 #### [facility] [address] [place], [place], [address] MAGNESIUM Collected: 01/04/2018 Status: F Source: [place] 9:27 AM [facility] [place] Order Comment: Order Date: 12/08/17 Order Info: 07 - CMP Order Info: 2776-08 - PHOS Order Info: 48265-6 - MG Order Info: 3015-10 - TSH Order Info: 3024-02 - T4F TYPE CODE TESTS RESULT OUT OF RANGE REFERENCE UNITS LAB L501.5200 1.6-2.6 mg/dL Normal MG 1.9 Performed By: #### L100.0100, L500.4050, L501.2300, L501.5200, L501.9520, L506.0400, L506.1000 #### [facility] [address] [place], [place], [address] THYROID STIM HORMONE Collected: 01/04/2018 Status: F Source: [place] (TSH) 9:27 AM [facility] [place] Order Comment: Order Date: 12/08/17 Order Info: 0786 - CMP Order Info: 2776-08 - PHOS Order Info: 34873-4 - MG Order Info: 3 - TSH Order Info: 3027 - T4F TYPE CODE TESTS RESULT OUT OF RANGE REFERENCE UNITS LAB L501.9520 0.358-3.74 uIU/mL Normal TSH 2.05 Performed By: #### L100.0100, L500.4050, L501.2300, L501.5200, L501.9520, L506.0400, L506.1000 #### [facility] [address] [place], [address] T4 FREE DIRECT Collected: 01/04/2018 Status: F Source: [place] 9:27 AM [facility] [place] Order Comment: Order Date: 12/08/17 Order Info: 0786-1 - CMP Order Info: 2777-1 - PHOS Order Info: 90502-5 - MG Order Info: 3016-3 - TSH Order Info: 3024-7 - T4F TYPE CODE TESTS RESULT OUT OF RANGE REFERENCE UNITS LAB L506.0400 0.76-1.46 ng/dL Normal T4 FREE 1.45 DIRECT Performed By: #### L100.0100, L500.4050, L501.2300, L501.5200, L501.9520, L506.0400, L506.1000 #### [facility] [address] [place], [address] VITAMIN D,25 HYDROXY Collected: 01/04/2018 Status: F Source: [place] 9:27 AM [facility] [place] [facility] Order Comment: Order Date: 12/08/17 Order Info: 33849-7 - VITD25 TYPE CODE TESTS RESULT OUT [...] L500.4050, L501.2300, L501.5200, L501.9520, L506.0400, L506.1000 #### [facility] [address] [place], [address] URINALYSIS, COMPLETE Collected: 01/04/2018 Status: F Source: [place] 9:27 AM [facility] [place] Order Comment: How was Urine Obtained? [...] CRYSTAL 1+ Performed By: #### L400.0001 #### [facility] [address] [place], [place], [address] HEMOGLOBIN A1C Collected: 01/04/2018 Status: F Source: [place] 9:27 AM [facility] [place] [facility] Order Comment: PLEASE ADD A1C TO BLOOD DRAWN THIS AM PER TYPE CODE TESTS RESULT OUT OF RANGE REFERENCE UNITS LAB L501.9985 4.2-6.3 % High HGB A1C 6.5 Performed By: #### L501.9985 #### [facility] [address] [place], [address] OPERATIVE PROCEDURES Observed: 01/02/2018 Status: F Source: [place] 3:45 PM [facility] REPOSITORY [facility] OPERATIVE REPORT NAME ACCOUNT SEX AGE ADMIT DISCHARGE PT MED. RECORD# NUMBER DATE DATE TYPE GERALDINE [id number] F 72 01/02/18 Jose Francisco Garcia [address] ROOM: [facility] DATE OF : 1945 DICTATING PHYSICIAN: Cynthia Keyes DATE OF SURGERY: January 02, 2018 SURGEON: Cynthia Keyes MD VICE PRESIDENT RISK MANAGEMENT: ANESTHESIOLOGIST: Ute Steel CRNA/Ismael Curiel MD ANESTHETIC: [...] rotated with irrigation and suctioning in a odhc-mzd-dgutf movement to improve the view. The scope [...] Cynthia Keyes MD 01/02/18 12:34 JOB #: [id number] Transcribed By: bentley 01/02/18 12:43 Electronically signed by: E-Sign Dr. Cynthia [place] MD 01/02/18 15:44 Page 2 of 2 SUSAN CHANDLER Operative Report DEXA BONE DENSITY/APPEND Observed: 12/13/2017 Status: F Source: [place] SKEL 12:27 PM [facility] [place] [facility] Imaging Services [address] [place] [address] Dexa Bone Density/Append Skel MR#: [id number] Acct: [id number] Name: SUSAN CHANDLER Rep #: [id number] : 1945 F 72 From: Hesham Silver DO PCP: Terrance [place] MD Status: REG CLI Study: Dexa Bone Density/Append Skel Date of Exam: 12/13/17 Exam# [id number] Ordering Dr: Terrance [place] MD STUDY: DUAL [...] Hesham Silver DO at 8:36 EDT Tel [phone], Service support , CC: Terrance [place] MD Continuous Linter Drier Operator: Signed 12 LEAD ELECTROCARDIOGRAM Observed: 12/05/2017 Status: F Source: [place] 2:46 PM [facility] [place] [facility] Cardiovascular Services [address] [place] [address] 12 Lead EKG 12/02/17 1016 MR#: [id number] Acct: [id number] Name: SUSAN CHANDLER Rep #: [id number] : 1945 72 From: Porfirio Deras MD [...] ECG Confirmed by BRAEDEN JOYA, PORFIRIO ([id number]), photography editor CARINA [place] ([id number]) on 12/05/2017 2:46:16 PM Referred By: CYNTHIA KEYES Confirmed By:PORFIRIO DERAS MD 12/05/17 1446 Date Porfirio Deras MD CC: CYNTHIA KEYES; Trent Peterson Signed CBC-COMPLETE BLOOD CNT Collected: 12/02/2017 Status: F Source: [place] NO DIFF 10:00 AM [facility] [place] TYPE CODE TESTS RESULT OUT OF [...] MPV 9.7 Performed By: #### L100.0500 #### [facility] [address] [facility] [place], [address] SCREENING MAMM (CAD), Observed: 11/07/2017 Status: F Source: [place] BILAT 7:01 AM [facility] [place] [facility] Imaging Services [address] [place] [address] SCREENING MAMM (CAD), BILAT MR#: [id number] Acct: [id number] Name: SUSAN CHANDLER Rep #: [id number] : 1945 F 72 From: Drake Belle MD PCP: Trent Peterson Status: REG CLI Study: SCREENING MAMM (CAD), BILAT Date of Exam: 11/07/17 Exam# [id number] Ordering Dr: Trent Peterson MAMMOGRAPHY - BILATERAL [...] , Service support , CC: Trent Peterson Continuous Linter Drier Operator: Signed ALLERGIES ALLERGIES DATE TYPE / CODE NAME / CODE REACTION SEVERITY SOURCE Drug PENICILLINS Moderate Roney Pomerene Allergy/416 (CLASS)/[id number](R ([facility] 009492(SNOM XNORM) Modifier) Hospital ED CT) (Qualifier Repository Value) ENCOUNTERS ENCOUNTERS ADMIT/DISCHARGE ACCOUNT ADMITTING ENCOUNTER LOCATION SOURCE NUMBER CLASS 08/31/2018 [id number] Ambulatory [place] 6 [facility] ing:MFPLAB Repository 07/24/2018 [id number] Ambulatory [place] 0 [facility] ing:MTLAB Repository 06/30/2018 [id number] Ambulatory [place] 8 [facility] ing:RAD Repository 06/21/2018/ [id number] Ambulatory [place] 8 0 [facility] ing:DC Repository 05/18/2018/ [id number] Ambulatory [place] 8 1 [facility] ing:DC Repository 05/03/2018 [id number] Ambulatory [place] 4 [facility] ing:CT Repository 05/03/2018/ [id number] Ambulatory [place] 8 3 [facility] ing:DC Repository 04/20/2018 [id number] Ambulatory [place] 2 [facility] ing:LAB Repository 04/03/2018 [id number] Ambulatory [place] 3 [facility] ing:MFPLAB Repository 03/07/2018/ [id number] Ambulatory [place] 8 6 [facility] ing:DC Repository 02/08/2018 [id number] Ambulatory [place] 3 [facility] ing:MFPLAB Repository 01/24/2018/ [id number] Ambulatory [place] 8 7 [facility] ing:DC Repository 01/04/2018 [id number] Ambulatory [place] Ono 2 [facility] ing:MFPLAB Repository 01/02/2018/ [id number] CYNTHIA KEYES Ambulatory [address] [place] [address] oom: [address] Repository 12/13/2017 [id number] Ambulatory [place] Ono 4 [facility] ing:OPBD Repository 12/02/2017 [id number] Ambulatory [place] 3 [facility] ing:LAB Repository 12/02/2017 [id number] Ambulatory BMSBuilding:W [place] 2 [facility] Repository 12/01/2017 [id number] CYNTHIA KEYES Ambulatory [facility] Repository 11/07/2017 [id number] Ambulatory [place] Ono 4 [facility] ing:BI Repository PAYERS PAYERS ENCOUNTER GUARANTOR PAYER SUBSCRIBER SOURCE 08/31/2018 SUSAN Garcia Primary Insurance:BRIAN CHANDLER665 [facility] HE[facility] PLAN COOPERDOB: [facility] Number: [id number] [id number] Repository [address]Ind: (330) Date:9790-90-70[phone] ([facility] [place] [address]WF: 08/31/2018 Secondary NOT GIVENUNK [place] Insurance:SELF PAY [facility] Number: Effective Repository Date:2018-08-31 07/24/2018 SUSAN Garcia Primary Insurance:BRIAN Garcia Ono [id number] [employer] PL[employer] COOPERDOB: [facility] Number: [id number], [place] [id number] Repository [address]Lxx: (330) Date:4044-40-24[phone] ([place]) [place], [place] [address]QW: 07/24/2018 Secondary NOT GIVENUNK [place] Insurance:SELF PAY [facility] Number: Effective Repository Date:2018-07-24 06/30/2018 SUSAN Garcia Primary Insurance:BRIAN Garcia [place] [id number] [facility] COOPERDOB: [facility] Number: [id number], [place] [id number] Repository [address]Rua: (330) Date:3967-52-80[phone] ([place]) [place], [place] [address]FF: 06/30/2018 Secondary NOT GIVENUNK [place] Insurance:SELF PAY [facility] Number: Effective Repository Date:2018-06-30 06/21/2018 SUSAN Garcia Primary Insurance:BRIAN Garcia [place] [id number] [facility] COOPERDOB: [facility] Number: [id number], [place] [id number] Repository [address]Sct: (330) Date:8831-15-67[phone] (HP) [place], [place] [address]EP: 06/21/2018 Secondary NOT GIVENUNK [place] Insurance:SELF PAY [facility] [place] Number: Effective Repository Date:2018-06-15 2018 SUSAN Garcia Primary Insurance:BRIAN Garcia Kavin [id number] [facility] COOPERDOB: [facility] [place] Number: [id number], [place] [id number] Repository [address]Egb: (330) Date:4148-53-40[phone] (HP) [place], [place] [address]OB: 2018 Secondary NOT GIVENUNK Ono Insurance:SELF PAY [facility] [place] Number: Effective Repository Date:2018-05-15 05/03/2018 SUSAN S Primary Insurance:BRIANLT SUSAN Garcia Ono [id number] [facility] COOPERDOB: [facility] [place] Number: [id number], [place] [id number] Repository 98[address]Pux: (330) Date:4232-42-94EB [phone] (HP) [address], [place] [address]WQ: 05/03/2018 Secondary NOT GIVENUNK Ono Insurance:SELF PAY [facility] [place] Number: Effective Repository Date:2018-04-07 05/03/2018 SUSAN S Primary Insurance:BRIAN Garcia Ono [id number] [facility] COOPERDOB: [facility] [place] Number: [id number], [place] [id number] Repository [address]Pkv: ([phone]) Date:6122-71-68LL [phone] (HP) [address], [place] [address]ZC: 05/03/2018 Secondary NOT GIVENUNK Kavin Insurance:SELF PAY [facility] [place] Number: Effective Repository Date:2018-03-15 04/20/2018 SUSAN S Primary Insurance:BRIAN Garcia Kavin [id number] PRIMETIME HEALTH PLAN COOPERDOB: [facility] [place] Number: [id number], [place] [id number] Repository [address]Ook: ([phone]) Date:5916-74-07NA [phone] (HP) [address], [place] [address]TF: 04/20/2018 Secondary NOT GIVENUNK Ono Insurance:SELF PAY [facility] Number: Effective Repository Date:2018-04-20 04/03/2018 SUSAN Garcia Primary Insurance:BRIAN Garcia Ono [id number] PRIMETIME HEALTH PLAN COOPERDOB: [facility] [place] Number: [id number], [place] [id number] Repository [address]Jjy: ([phone]) Date:8858-92-53AX [address] (HP) [address], [place] [address]GG: 04/03/2018 Secondary NOT GIVENUNK Kavin Insurance:SELF PAY [facility] [place] Number: Effective Repository Date:2018-04-03 03/07/2018 SUSAN Garcia Primary Insurance:BRIAN Garcia Kavin [id number] PRIMETIME HEALTH PLAN COOPERDOB: [facility] [place] Number: [id number], [place] [id number] Repository [address]Cde: (330) Date:5530-19-54WF [phone] (HP) [address], [place] [address]VV: 03/07/2018 Secondary NOT GIVENUNK Kavin Insurance:SELF PAY [facility] Number: Effective Repository Date:2018-02-12 02/08/2018 SUSAN Garcia Primary Insurance:BRIAN Garcia Kavin [id number] PRIMETIME HEALTH PLAN COOPERDOB: [facility] [place] Number: [id number], [place] [id number] Repository [address]Dyk: (330) Date:0990-49-13IQ [phone] (HP) [address], [place] [address]YC: 02/08/2018 Secondary NOT GIVENUNK Kavin Insurance:SELF PAY [facility] Number: Effective Repository Date:2018-02-08 01/24/2018 SUSAN Garcia Primary Insurance:BRIAN Garcia Ono [id number] PRIMETIME HEALTH PLAN COOPERDOB: [facility] [place] Number: [id number], [place] [id number] Repository [address]Atk: (330) Date:3856-70-63TW [phone] (HP) [address] [address]DV: 01/24/2018 Secondary NOT GIVENUNK Ono Insurance:SELF PAY [facility] [place] Number: Effective Repository Date:2018-01-18 01/04/2018 SUSAN Garcia Primary Insurance:BRIAN Garcia Kavin [id number] [facility] COOPERDOB: [facility] [place] Number: [id number], [place] [id number] Repository [address]Fui: (330) Date:1114-75-78JI [phone] (HP) [address], [place] [address]LD: 01/04/2018 Secondary NOT GIVENUNK Kavin Insurance:SELF PAY [facility] Number: Effective Repository Date:2018-01-04 01/02/2018 SUSAN Primary SUSAN COOPERDOB: Roney Leahy COOPERDOB: Insurance:PRIMETIME [id number] [facility] [id number] Number: 292[place] [id number] [place] [phone]: (330) Date:Plan Name:P O [phone] (HP) [address], [place] [id number]: 12/13/2017 SUSAN Garcia Primary Insurance:BRIAN Garcia Ono [id number] [facility] COOPERDOB: [facility] [place] Number: [id number], [place] [id number] Repository 416[address]Zfk: (330) Date:3402-53-89KQ [phone] (HP) [address], [place] [address]WH: 12/13/2017 Secondary NOT GIVENUNK Ono Insurance:SELF PAY [facility] Number: Effective Repository Date:2017-12-09 12/02/2017 BLAKE Primary Insurance:BRIAN Vale [id number] [facility] [place] COOPERDOB: [facility] [place] Number: [id number], [place] [id number] Repository [address]Lxa: (330) Date:5558-78-78QQ [phone] (HP) [address], [place] [address]GA: 12/02/2017 Secondary NOT GIVENUNK Kavin Insurance:SELF PAY [facility] [place] Number: Effective Repository Date:2017-12-02 12/02/2017 [facility] Primary Insurance:BRIAN Vale [id number] [facility] COOPERDOB: [facility] [place] Number: [id number], [place] [id number] Repository [address]Dot: (330) Date:8553-62-64NN [phone] (HP) [address], [place] [address]OQ: 12/02/2017 Secondary NOT GIVENUNK Ono Insurance:SELF PAY [facility] Number: Effective Repository Date:2017-12-02 12/01/2017 SUSAN Primary SUSAN COOPERDOB: Roney Leahy COOPERDOB: Insurance:[facility] [id number] [facility] [id number] [facility] Number: [address] [facility], [id number] [place] [address] [place] [address]Uxb: Date:Plan Name: () 11/07/2017 Blake Primary Insurance:BRIAN Vale [id number] [facility] [place] COOPERDOB: [facility] Number: [id number], [place] [id number] Repository [address]Tze: (330) Date:4997-98-21PG [phone] (HP) [address], [place] [address]ZP: 11/07/2017 Secondary NOT GIVENUNK Kavin Insurance:SELF PAY [facility] Number: Effective Repository Date:2017-10-19
== END ==
PROVIDERS: Family Provider Family Medicine; PCP Family Medicine; Visit Provider Family Medicine
DX: I10 Essential (primary) hypertension (principal); E11.9 Type 2 diabetes mellitus without complications; E55.9 Vitamin D deficiency, unspecified; R00.0 Tachycardia, unspecified; Z72.0 Tobacco use
CPT/HCPCS: 36415; 80053; 81001; 82043; 82306; 82570; 83036; 83735; 85025

== ENCOUNTER → 2018-12-08 09:59 | Outpatient (CLI) | payer MEDICARE, SELFPAY ==
[2018-12-08 12:35] LABS: T4 Free Direct 1.84 ng/dL (0.76-1.46); Thyroid Stim Hormone (TSH) 1.32 uIU/mL (0.358-3.74)
[2018-12-11 20:07] LABS: Thyroid Stim Immunoglob <0.10 IU/L (0.00-0.55)
[2018-12-12 17:45] LABS: Anti-Thyroglobulin AB < 1.0 IU/mL (0.0-0.9); Thyroglobulin, Serum Qt. 13.6 ng/mL (1.5-38.5); Thyroid Peroxidase AB 15 IU/mL (0-34)
== END ==
PROVIDERS: Family Provider Family Medicine; PCP Family Medicine; Referring Provider Family Medicine; Visit Provider Family Medicine
DX: R79.89 Other specified abnormal findings of blood chemistry (principal); E07.9 Disorder of thyroid, unspecified; M47.812 Spondylosis without myelopathy or radiculopathy, cervical region; M47.814 Spondylosis without myelopathy or radiculopathy, thoracic region; Z98.1 Arthrodesis status
CPT/HCPCS: 36415; 84432; 84439; 84443; 84445; 86376; 86800; 97113

== ENCOUNTER 2018-12-11 10:30 | Outpatient (RCR) | payer MEDICARE, SELFPAY ==
--- NOTE | 2018-11-14 10:26 | HP.PTEVAL_ITS ---
Patient's Visit Information KARISSA CHANDLER is a 73 year old F referred to Physical Therapy by Tariq Slater with a diagnosis of S/P LUMBAR FUSION 2017. CERVICAL & THORACIC MULTILEVEL SPONDYLOSIS.. Date of Evaluation: 11/14/18 Physical Therapist: Judy Joe PT, Cert MDT - Visit Plan Frequency: 2x /Week Duration: 3 Weeks Plan: AQUATIC THERAPY FOR PAIN RELEIF, POSTURE CORRECTION/STRENGTHENING, INSTRUCTION IN APPROPRIATE BODY MECHANICS AND ACTIVITY MODIFICATIONS. DLS STARTING WITH A NEUTRAL SPINE PROGRESSING ROM TOLERATED. CARA UE AND LE ROM, STRETCHING AND STRENGTHENING. HEP INSTRUCTION. PATIENT REPORTS SHE REALLY DOES NOT LIKE TO EXERCISE AND SHE IS NOT OPTOMISTIC ABOUT THERAPY HELPING BUT SHE LOVES THE WATER AND IS WILLING TO TRY IT AGAIN. - Subjective Findings: Diagnosis: S/P LUMBAR FUSION 2017. CERVICAL AND THORACIC SPONDYLOSIS. Work/Leisure: RETIRED. Disability: NO. Present symptoms: LOW BACK AND UPPPER BACK PAIN. LEFT THIGH PAIN. BOTH ARMS ACHE LEFT > RGHT. PATIENT REPORTS THE PAIN DOESN'T GO INTO HER NECK. Present since: ABOUT 3 MONTHS AGO - THIS IS NEW. Pain Scale: Worst - 7/10 Least - /10. Currently: 08/24. Commenced as a result of: NO APPARENT REASON. Symptoms at onset: LOW BACK PAIN. Worse: BASICALLY IF I AM ON MY FEET FOR MORE THAN 5-10 MINUTES. Better: SITTING. Disturbed sleep: NO. Previous history/Previous treatment: FIRST BACK SURGERY IN 1992. STARTED WITH LUMBAR DISCECTOMY. 1993 HAD TO HAVE IT DONE AGO. DID PRETTY GOOD BUT WOULD HAVE SPELLS OF IT GETTING BAD UNTIL 2014 WHEN SHE COULD HARDLY WALK SO UNDERWENT LUMBAR FUSION BY DR. SLATER. THEN IT WAS GOOD UNTIL NOW. PATIENT REPORTS THAT OVER THE YEARS SHE REALLY HASN'T HAD ANY PHYSICAL THERAPY FOR HER SPINE AND SHE HAS NOT BEEN IN PAIN MGMT OR HAD KILEY'S. Coughing/sneezing/straining: NEGATIVE. Gait: TIME LIMITED. CAUSES BACK, RIGHT HIP, RIGHT KNEE, AND LEFT ANKLE PAIN. HAVING A CART IN THE STORE REALLY HELPS. NOT USING ANY ASSISTIVE DEVICES OTHERWISE. Difficulty initiating urin atin: NO. Accidents: NO. Unexplained weight loss: NO. Imaging: RECENT CERVICAL, THORACIC AND LUMBAR X-RAYS AND TOLD SHE MAINLY HAS DEGENERATION OF THE DISCS AND ARTHRITIS. PMH: NIDDM, HTN, RAPID HR, PROBABLE COPD PER PATIENT. Recent major surgery: RIGHT THR, RIGHT TKR AND REVISION, LEFT ANKLE FUSION. PLOF (Prior Level of Function): PRIOR TO 3 MONTHS AGO PATIENT REPORTS SHE WAS ABLE TO BE ON HER FEET A LOT LONGER. - Objective Sitting Posture/Standing Posture: POOR. Active Correction of posture: Other Observations: INDEP ANTALGIC GAIT INTO PT WITHOUT ANY ASSISTIVE DEVICES. DECREASED CARA STRIDE LENGTH. DECREASED HEEL STRIKE AND TOE OFF LEFT ANKLE. LLE SHORTER THAN RIGHT. Motor deficit: CARA UE AND LE WEAKNESS. CARA UE'S GROSSLY 4/5 WITH MMT'ING. RIGHT LE: HIP 4-/5, KNEE 4/5 IN MID-RANGE, ANKLE 5/5. LEFT LE: HIP 4/5, KNEE 4/5, ANKLE - FUSED. Sensory deficit: CARA UE'S INTACT AND SYMMETRICAL. CARA LE'S DECREASED OR ALTERED THROUGHOUT. ROM deficit: CARA LE TIGHTNESS. RIGHT KNEE AROM IN SUPINE WITH A HEEL SLIDE = 125 DEG EXT TO 114 DEG FLEX. LEFT KNEE FULL EXT TO 121 DEG FLEX. Lumbar mvmt loss: MODERATE FLEX LOSS. QUEENIE MVMT LOSS OTHERWISE. Postural and Core strength: POOR - Goals Goal 1:: DECREASE C/O BACK PAIN Goal Time Frame: 4-6 Weeks Goal 2:: IMPROVE PERSONAL CARE, LIFTING, WALKING, STANDING, SOCIAL LIFE, TRAVEL AND HOMEMAKING FUNCTION Goal Time Frame: 4-6 Weeks Goal 3:: INSTRUCT IN PROPHYLAXIS Goal Time Frame: 4-6 Weeks - Rehabilitation Potential Rehabilitation Potential: Fair - Anticipated Interventions Patient/Client Instruction: Educate patient on: Condition, Plan of Care, Risk Factors, Benefits of Fitness Program For the Purpose of:: To improve self management Therapeutic Exercise to Include: Strength training, Body mechanics, Postural training, In an aquatic setting, Active ROM, Dynamic Lumbar Stabilization For the Purpose of:: To decrease pain, To increase ROM, To improve muscle performance and motor function, To increase tolerance to activity/condition/position, To improve ability of physical actions for home/community/work/leisure, To improve gait and locomotor functions Thank you for the opportunity to evaluate your patient. For Medicare and Medicare HMO plans, please review the plan of care and approve it. It will need to be FAXED BACK to us at [phone] for Medicare purposes. For Medicare only, by signing this I certify the plan of care. Please let me know if there are questions or concerns regarding this plan of care. Physician Signature: Date:
--- NOTE | 2018-12-11 11:03 | HP.PTDCSUM ---
HP - PT D/C Summary It has been my pleasure to treat KARISSA CHANDLER under orders from Tariq Slater, for the diagnosis of S/P LUMBAR FUSION 2017. CERVICAL & THORACIC MULTILEVEL SPONDYLOSIS. for a total of 5 visit(s). Discharge Date: 12/11/18 Please see the following information for a summary of their discharge status. - Subjective Subjective: PATIENT REPORTS SHE HAS LEARNED A LOT BUT SHE IS STILL HURTING. PATIENT REPORTS SHE SEES DR. SLATER FOR FOLLOW UP TOMORROW AND SHE WANTS TO SEE IF HE HAS ANY OTHER OPTIONS FOR HER OR IF SHE JUST HAS TO LIVE WITH THIS PAIN. STATES SHE IS GLAD SHE TRIED THE THERAPY THOUGH. PATIENT REPORTS NONE OF THE EX'S BOTHERED HER WHILE SHE WAS DOING THEM IN THE POOL AND SHE HAS LEARNED HOW TO REALLY WORK ON HER POSTURE. SHE IS HOPING THAT WITH TIME WORKING ON HER POSTURE WILL HELP. SHE REPORTS SHE THOUGHT THE MEDICINE THAT DR. SLATER PRESCRIBED WAS WORKING AT FIRST BUT SHE IS DONE WITH THAT NOW AND STATES SHE WON'T TAKE ANY NARCOTICS. - Pain Cerv. Spine Pain Intensity (Out of 10): 6 Thoracic Spine Pain Intensity (Out of 10): 5 - Objective Objective/Function: PATIENT ONLY HAD THREE AQUATIC THERAPY SESSIONS AND DOES NOT WANT TO DO ANY MORE PT AT THIS TIME. UPON EXAM TODAY THERE ARE NO SIGNIFICANT CHANGES SINCE INITIAL EVAL NOVEMBER 14 2018. PATIENT MAY BENEFIT FROM FURTHER AQUATIC THERAPY 2-3 TIMES A WEEK X 3-5 WEEKS OR AT LEAST INDEP WATER EX BASED ON WHAT SHE HAS BEEN TAUGHT SO FAR BUT SHE IS NOT AGREEABLE AT THIS TIME. - Goals Goal 1:: DECREASE C/O BACK PAIN Goal Progress: Not Progressing Goal 2:: IMPROVE PERSONAL CARE, LIFTING, WALKING, STANDING, SOCIAL LIFE, TRAVEL AND HOMEMAKING FUNCTION Goal Progress: Not Progressing Goal 3:: INSTRUCT IN PROPHYLAXIS Goal Progress: Not Progressing - Plan Plan: D/C AT PATIENTS REQUEST - D/C Information If there are questions or concerns regarding this patient's physical therapy, please feel free to call me at [phone]. Thank you for the referral of this patient. Sincerely, Judy Joe, PT, Cert MDT
== END 2018-12-11 19:00 | disposition home or self-care (01) ==
LOC: PT 10:30
PROVIDERS: Family Provider Family Medicine; PCP Family Medicine; Referring Provider Orthopaedic Surgery Orthopaedic Surgery of the Spine; Visit Provider Orthopaedic Surgery Orthopaedic Surgery of the Spine
DX: M47.812 Spondylosis without myelopathy or radiculopathy, cervical region (principal); M47.814 Spondylosis without myelopathy or radiculopathy, thoracic region; Z98.1 Arthrodesis status
CPT/HCPCS: 97113; 97162; 97530

== ENCOUNTER → 2018-12-18 13:55 | Outpatient (CLI) | payer MEDICARE, SELFPAY ==
[2018-12-18 15:51] LABS: BUN 10 mg/dL (7-18); Creatinine, Serum 0.92 mg/dL (0.55-1.02); EST Glomerular Filtration Rate 64 mL/min (>60); Est Glom Filt Rate - Afr Amer 77 mL/min (>60)
== END ==
PROVIDERS: Family Provider Family Medicine; PCP Family Medicine; Referring Provider Orthopaedic Surgery Orthopaedic Surgery of the Spine; Visit Provider Orthopaedic Surgery Orthopaedic Surgery of the Spine
DX: M51.36 Other intervertebral disc degeneration, lumbar region (principal)
CPT/HCPCS: 36415; 82565; 84520

== ENCOUNTER → 2018-12-26 10:06 | Outpatient (CLI) | payer MEDICARE, SELFPAY ==
--- NOTE | 2018-12-26 10:45 | MRI_ITS ---
STUDY: MRI LUMBAR SPINE WITH AND WITHOUT CONTRAST REASON FOR EXAM: Female, 73 years old. Constant low back pain TECHNIQUE: Standardized fat and water weighted pulse sequences were obtained in the sagittal and axial planes. 17 IV Dotarem was administered for the contrast portion of the examination. COMPARISON: 11/03/2015 FINDINGS: T12-L1: Central disc protrusion without compressive sequelae. Normal lumbar lordosis. There is no substantial scoliosis. Normal conus medullaris that terminates at the L1 level. Bilateral posterior pedicle fusions from L3 through S1. L1-2: Bulging annulus and bilateral facet hypertrophy with mild central canal and bilateral foraminal stenoses. L2-3: Bulging annulus and bilateral facet hypertrophy with mild to moderate central canal and bilateral foraminal stenoses. L3-4: Bilateral laminectomies. No residual compressive sequelae. L4-5: The disc space is fused. Bilateral laminectomies. Mild residual bilateral foraminal stenoses. L5-S1: Bilateral laminectomies. Residual bulging annulus with mild bilateral foraminal stenoses. Normal visualized sacral ala. Normal visualized paraspinous soft tissue structures. MRI/Spine Lumbar W/WO Contrast IMPRESSION: Multilevel degenerative disease and postoperative change as described. Mild to moderate central canal and bilateral foraminal stenoses at the L2-3 level. Overall, no significant change compared to prior study. No evidence of abnormal intrathecal postcontrast enhancement. No evidence of arachnoiditis. Electronically Signed: Raffaele Pickard MD at 16:23 EDT Tel , Service support ,
== END ==
PROVIDERS: Family Provider Family Medicine; PCP Family Medicine; Referring Provider Orthopaedic Surgery Orthopaedic Surgery of the Spine; Visit Provider Orthopaedic Surgery Orthopaedic Surgery of the Spine
DX: M43.16 Spondylolisthesis, lumbar region (principal); M51.36 Other intervertebral disc degeneration, lumbar region
CPT/HCPCS: 72158; A9575

== ENCOUNTER → 2019-01-24 09:44 | Outpatient (CLI) | payer MEDICARE, SELFPAY ==
--- NOTE | 2019-01-24 09:47 | BI_ITS ---
MAMMOGRAPHY - BILATERAL SCREENING REASON FOR EXAM: Female, 73 years old. Routine annual screening examination. PERTINENT HISTORY: Non-contributory. Remote left excisional breast biopsy. TECHNIQUE: Digital bilateral breast fco (3D mammographic acquisition) in the CC and MLO projections. 2-D mediolateral oblique (MLO) and craniocaudad (CC) views of both breasts were obtained. CAD: Full Field Digital Mammography with Computer Added Detection was performed. COMPARISON: Comparison is made with prior study dated November 07, 2017 and October 28, 2016. FINDINGS: Breast Composition: There are scattered areas of fibroglandular density. There are no dominant masses or suspicious calcifications. Minimal degree of architectural distortion in the upper lateral aspect of the left breast in keeping with prior history of excisional breast biopsy. No other significant abnormalities are identified. There has been no significant change since the prior study. BI/SCREEN MAMM (CAD) W/FCO BILAT IMPRESSION: Stable bilateral screening mammogram. Yearly follow-up mammogram recommended. (A) ASSESSMENT CATEGORY: BIRADS Category 2: Benign. A letter regarding these results will be sent to the patient by the facility within 30 days. Approximately 10% of breast cancers are not detected by mammography. A normal mammogram should not delay biopsy of a clinically suspicious abnormality. [id number] Electronically Signed: Nato Gates, at 11:05 EDT , Service support ,
== END ==
PROVIDERS: Family Provider Family Medicine; PCP Family Medicine; Referring Provider Family Medicine; Visit Provider Family Medicine
DX: Z12.31 Encounter for screening mammogram for malignant neoplasm of breast (principal)
CPT/HCPCS: 77063; 77067

== ENCOUNTER 2019-02-13 09:00 | Outpatient (RCR) | payer MEDICARE, SELFPAY ==
--- NOTE | 2019-02-01 13:13 | HP.PTEVAL_ITS ---
Patient's Visit Information KARISSA CHANDLER is a 73 year old F referred to Physical Therapy by Tariq Slater with a diagnosis of LUMBAR DDD, SPINAL STENOSIS, NEUROGENIC CLAUDICATION L23 & ARTHRODESIS.. Date of Evaluation: 02/01/19 Physical Therapist: Judy Joe, PT, Cert MDT - Visit Plan Frequency: 1x/Week Duration: 4 Weeks Plan: AQUATIC THERAPY FOR POSTURE CORRECTION/STRENGTHENING, INSTRUCTION IN APPROPRIATE BODY MECHANICS AND ACTIVITY MODIFICATIONS. DLS STARTING WITH A NEUTRAL SPINE PROGRESSING ROM TOLERATED. CARA LE ROM, STRETCHING AND STRENGTHENING. HEP INSTRUCTION. - Subjective Findings: PATIENT REPORTS THAT WHEN SHE FOLLOWED UP WITH DR. SLATER AFTER HER LAST EPISODE OF CARE WITH PT HE RECOMMENDED MORE BUT SHE LOST THE SHEET. SHE WENT BACK TO HIM TODAY. HE WANTS HER TO KEEP TAKING THE MEDICINE AND DO THE THERAPY. HE THINKS THERE MIGHT BE SOMETHING GOING ON WITH THE TENDON IN THE RIGHT HIP THAT SHE HAD REPLACED. SHE REPORTS HER BACK IS SOME BETTER AND THE HIP PAIN IS MORE OF THE ISSUE. IF HER HIP ISN'T BETTER IN A MONTH HE IS GOING TO ORDER AN MRI. HAS LOST ABOUT 40 LBS IN 40 [address] PROGRAM[address] SLATER IS AWARE. Present symptoms: LOW BACK AND RIGHT HIP PAIN. Present s donaldo: YEARS. Pain Scale: WORST 10/10, LEAST 2/10. Currently: 11/22. Commenced as a result of: ARTHRITIS. Symptoms at onset: LOW BACK. Worse: STANDING INCREASES LBP AND WALKING INCREASES HIP PAIN. Better: SITTING AND LYING DOWN. Disturbed sleep: NO. Previous history/Previous treatment: MEDICATION AND A FEW AQUATIC THERAPY SESSIONS RECENTLY. REMOTE PT. FIRST BACK SURGERY IN 1992. STARTED WITH LUMBAR DISCECTOMY. 1993 HAD TO HAVE IT DONE AGO. DID PRETTY GOOD BUT WOULD HAVE SPELLS OF IT GETTING BAD UNTIL 2014 WHEN SHE COULD HARDLY WALK SO UNDERWENT LUMBAR FUSION BY DR. SLATER. THEN IT WAS GOOD UNTIL NOW. PATIENT REPORTS THAT OVER THE YEARS SHE REALLY HASN'T HAD ANY PHYSICAL THERAPY FOR HER SPINE AND SHE HAS NOT BEEN IN PAIN MGMT OR HAD KILEY'S. Coughing/sneezing/straining: NEGATIVE. Gait: TIME LIMITED. CAUSES BACK, RIGHT HIP, RIGHT KNEE, AND LEFT ANKLE PAIN. HAVING A CART IN THE STORE REALLY HELPS. NOT USING ANY ASSISTIVE DEVICES OTHERWISE. Difficulty initiating uri natin: NO. Accidents: NO. Unexplained weight loss: NO. Imaging: RECENT CERVICAL, THORACIC AND LUMBAR X-RAYS AND TOLD SHE MAINLY HAS DEGENERATION OF THE DISCS AND ARTHRITIS. PMH/Recent major surgery: NIDDM, HTN, RAPID HR, PROBABLE COPD PER PATIENT. Recent major surgery: RIGHT THR, RIGHT TKR AND REVISION, LEFT ANKLE FUSION. PLOF (Prior Level of Function): PRIOR TO 5 MONTHS AGO PATIENT REPORTS SHE WAS ABLE TO BE ON HER FEET A LOT LONGER. - Objective Sitting Posture/Standing Posture: POOR. Active Correction of posture: WORSE Other Observations: INDEP ANTALGIC GAIT INTO PT WITHOUT ANY ASSISTIVE DEVICES. DECREASED CARA STRIDE LENGTH. DECREASED HEEL STRIKE AND TOE OFF LEFT ANKLE. LLE SHORTER THAN RIGHT. Motor deficit: RIGHT LE: HIP 4-/5, KNEE 4/5 IN MID-RANGE, ANKLE 5/5. LEFT LE: HIP 4/5, KNEE 4/5, ANKLE - FUSED. Sensory deficit: CARA UE'S INTACT AND SYMMETRICAL. CARA LE'S DECREASED OR ALTERED THROUGHOUT - RIGHT LATERAL LEG SINCE KNEE SURGERY. ROM deficit: CARA LE TIGHTNESS. RIGHT KNEE AROM IN SUPINE WITH A HEEL SLIDE = 125 DEG EXT TO 114 DEG FLEX. LEFT KNEE FULL EXT TO 121 DEG FLEX. Lumbar mvmt loss: MINIMAL FLEX LOSS (PATIENT REPORTS SHE HAS BEEN GETTING DOWN AND PULLING WEEDS BUT HARD TO GET BACK UP) QUEENIE MVMT LOSS OTHERWISE AND INCREASED PAIN WITH TESTING. C/O RIGHT HIP PAIN WITH RIGHT LE MMT. Postural and Core strength: POOR - Goals Goal 1:: DECREASE C/O LOW BACK AND RIGHT HIP PAIN Goal Time Frame: 4-6 Weeks Goal 2:: IMPROVE LIFTING, SITTING, STANDING, SOCIAL LIFE, TRAVEL AND HOMEMAKING FUNCTION Goal Time Frame: 4-6 Weeks Goal 3:: INSTRUCT IN PROPHYLAXIS Goal Time Frame: 4-6 Weeks - Rehabilitation Potential Rehabilitation Potential: Fair - Anticipated Interventions Patient/Client Instruction: Educate patient on: Condition, Plan of Care, Risk Factors, Benefits of Fitness Program For the Purpose of:: To improve self management Therapeutic Exercise to Include: Strength training, Postural training, Flexibilty training, Gait and locomotor training, In an aquatic setting, Dynamic Lumbar Stabilization For the Purpose of:: To decrease pain, To improve muscle performance and motor function, To increase tolerance to activity/condition/position, To improve ability of physical actions for home/community/work/leisure Thank you for the opportunity to evaluate your patient. For Medicare and Medicare HMO plans, please review the plan of care and approve it. It will need to be FAXED BACK to us at [phone] for Medicare purposes. For Medicare only, by signing this I certify the plan of care. Please let me know if there are questions or concerns regarding this plan of care. Physician Signature: Date:
--- NOTE | 2019-04-17 14:27 | HP.PT.NRP ---
HP - Discharge Summary (1) - Patient Information KARISSA CHANDLER was seen in my office for initial evaluation on 02/01/19. The following Plan of Care was established for this patient: Initial Frequency: 1x/Week Initial Duration: 4 Weeks - Anticipated Interventions Patient/Client Instruction: Educate patient on: Condition, Plan of Care, Risk Factors, Benefits of Fitness Program For the Purpose of:: To improve self management Therapeutic Exercise to Include: Strength training, Postural training, Flexibilty training, Gait and locomotor training, In an aquatic setting, Dynamic Lumbar Stabilization For the Purpose of:: To decrease pain, To improve muscle performance and motor function, To increase tolerance to activity/condition/position, To improve ability of physical actions for home/community/work/leisure This patient was last seen in our office 02/13/19. Pertinent comments regarding their Physical therapy will appear below: This patient has not returned to Physical Therapy and is appropriate to return to MD for further follow-up as needed. At this point I will be discontinuing this patient from physical therapy. I would be happy to see this patient again in the future if found appropriate by the physician. Thank you! Judy Joe, PT, Cert MDT
== END 2019-02-13 19:00 | disposition home or self-care (01) ==
LOC: PT 09:00
PROVIDERS: Family Provider Family Medicine; PCP Family Medicine; Referring Provider Orthopaedic Surgery Orthopaedic Surgery of the Spine; Visit Provider Orthopaedic Surgery Orthopaedic Surgery of the Spine
DX: M51.36 Other intervertebral disc degeneration, lumbar region (principal); M48.062 Spinal stenosis, lumbar region with neurogenic claudication; Z98.1 Arthrodesis status
CPT/HCPCS: 97113; 97162

== ENCOUNTER → 2019-03-08 08:19 | Outpatient (CLI) | payer MEDICARE, SELFPAY ==
[2019-03-08 08:24] LABS: Bacteria 0 SEEN /hpf (None Seen); Mucous, Urine 0 SEEN /hpf (<or=2+); Red Blood Cells-Urine 0 SEEN /hpf (0-5); White Blood Cells 0 SEEN /hpf (0-5)
[2019-03-08 10:14] LABS: Color, Urine Yellow (Yellow); Glucose, Dipstick Normal (Normal); Ketone-Dipstick Negative (Negative); Leukocyte Esterase-Dipstick Negative /ul (Negative); Nitrite-Dipstick Negative (Negative); Occult Blood-Urine Negative /ul (Negative); Protein-Dipstick Negative (Negative); Urine Bilirubin Dipstick Negative (Negative); Urine Clarity Clear (Clear); Urine Urobilinogen Normal (Normal)
[2019-03-08 10:22] LABS: Absolute Lymphocyte Count 1.03 X10^3/uL (0.83-4.51); Absolute Neutrophil Count 6.2 X10^3/uL (2.0-7.7); Basophil# 0.04 X10^3/uL; Basophil% 0.5 % (0-1); Eosinophil# 0.15 X10^3/uL; Eosinophils% 1.9 % (0-5); Hematocrit 39.6 % (37-47); Lymphocyte # 1.03 X10^3/ul (4.0); Lymphocyte % 12.9 % (19-41); Mean Corp Hgb Conc 32.8 g/dL (32-36); Mean Corpuscular Hgb 30.7 pg (27.0-32.0); Mean Corpuscular Volume 93.4 fL (81-99); Mean Platelet Vol. 10.4 fl (6.2-12.0); Monocyte# 0.59 X10^3/uL; Monocyte% 7.4 % (0-10); NRBC Flagged by Analyzer 0 % (0-5); Neutrophil # 6.16 X10^3/uL (2.7-7.7); Neutrophil % 76.8 % (47-70); Platelet Count 227 K/mm3 (150-450); RBC Distribution Width CV 13.3 % (11.6-14.6); RBC Distribution Width SD 45.5 fl (35.1-43.9); Red Blood Count 4.24 M/mm3 (4.2-5.4)
[2019-03-08 10:34] LABS: Squamous Epithelial Cells - UA 0-5 SEEN /hpf (5-10)
[2019-03-08 10:46] LABS: Vitamin D,25 Hydroxy 69.1 ng/mL (29.95-100.01)
[2019-03-08 10:58] LABS: ALB/GLOB Ratio 1.1 RATIO (0.9-2.4); AST(SGOT) 20 U/L (15-37); Alanine Aminotransfer ALT/SGPT 22 U/L (13-56); Albumin, Serum 3.7 g/dL (3.2-5.0); Alkaline Phosphatase 69 U/L (45-117); Anion Gap 9 (5-15); BUN 18 mg/dL (7-18); BUN/Creat Ratio 21.8 RATIO (10-20); Calcium,Total 9.5 mg/dL (8.5-10.1); Chloride 106 mmol/L (98-107); Creatinine, Serum 0.83 mg/dL (0.55-1.02); EST Glomerular Filtration Rate 72 mL/min (>60); Est Glom Filt Rate - Afr Amer 87 mL/min (>60); Globulin 3.4 g/dL (2.2-4.2); Glucose 95 mg/dL (74-106); Magnesium 1.9 mg/dL (1.6-2.6); Protein, Total 7.1 g/dL (6.4-8.2); Sodium Level 141 mmol/L (136-145); T4 Free Direct 1.59 ng/dL (0.76-1.46); Thyroid Stim Hormone (TSH) 1.99 uIU/mL (0.358-3.74)
[2019-03-08 10:59] LABS: Hemoglobin A1c 5.6 % (4.2-6.3)
== END ==
PROVIDERS: Family Provider Family Medicine; PCP Family Medicine; Referring Provider Family Medicine; Visit Provider Family Medicine
DX: R79.89 Other specified abnormal findings of blood chemistry (principal); E55.9 Vitamin D deficiency, unspecified; R00.0 Tachycardia, unspecified; E11.9 Type 2 diabetes mellitus without complications; I10 Essential (primary) hypertension
CPT/HCPCS: 36415; 80053; 81001; 82306; 83036; 83735; 84439; 84443; 85025

== ENCOUNTER → 2019-03-19 09:52 | Outpatient (CLI) | payer MEDICARE, SELFPAY ==
--- NOTE | 2019-03-19 10:06 | MRI_ITS ---
STUDY: MRI RIGHT HIP REASON FOR EXAM: Right hip pain, trochanteric bursitis, no specific injury, right hip replacement 2010. TECHNIQUE: Standardized fat and water weighted pulse sequences were obtained in all 3 orthogonal planes. COMPARISON: None. FINDINGS: There is artifact from right hip arthroplasty. There is a peritrochanteric fluid collection measuring 6.1 cm in length (coronal series 6 images 14-21) with communication to the joint space along the anterior neck of the femoral component (coronal series 6 image 13; series 10 images 14-16). There is tendinosis of the right gluteus medius tendon (coronal series 6 images 16, 17) without focal discontinuity of the tendon. Normal gluteus minimus and iliopsoas tendons and distal insertions. Normal superior and inferior pubic rami. Normal pubic symphysis. Normal ischial tuberosity. Normal origin of the hamstring tendons. Normal visualized iliac wing, sacroiliac joint, and sacral ala. There are postoperative changes of the lumbar spine. There is scarring in the subcutis adipose space peripheral to the right greater trochanter. MRI/Lower Ext Joint Only (Routine) IMPRESSION: Right hip arthroplasty with peritrochanteric fluid collection with communication to the joint space along the anterior neck of the femoral component. Tendinosis of the right gluteus medius tendon. Electronically Signed: Garrett Duffy MD at 11:41 EDT Tel , Service support ,
== END ==
PROVIDERS: Family Provider Family Medicine; PCP Family Medicine; Referring Provider Orthopaedic Surgery Orthopaedic Surgery of the Spine; Visit Provider Orthopaedic Surgery Orthopaedic Surgery of the Spine
DX: M70.61 Trochanteric bursitis, right hip (principal); Z96.641 Presence of right artificial hip joint
CPT/HCPCS: 73721

== ENCOUNTER → 2019-03-30 10:24 | Outpatient (CLI) | payer MEDICARE, SELFPAY ==
[2019-03-30 11:29] LABS: Erythrocyte Sedimentation Rate 12 mm/hr (0-30)
[2019-03-30 11:57] LABS: CRP 3.14 mg/L (0.0-3.0)
== END ==
PROVIDERS: Family Provider Family Medicine; PCP Family Medicine
DX: M16.11 Unilateral primary osteoarthritis, right hip (principal); Z96.641 Presence of right artificial hip joint
CPT/HCPCS: 36415; 85652; 86140

== ENCOUNTER → 2019-04-11 08:43 | Outpatient (CLI) | payer MEDICARE, SELFPAY ==
--- NOTE | 2019-04-11 08:00 | RAD_ITS ---
PROCEDURE: Fluoroscopic guided Hip aspiration. DATE: April 11, 2019. INDICATION: Female, 73 years old. Right hip pain. Remote right hip replacement. PHYSICIAN: Nato Gates M.D. ACCESS SITE: Right hip. NEEDLE: 22-gauge spinal needle. FLUOROSCOPY TIME (if supplied): (0:34) minutes/seconds FINDINGS: The risks, benefits, and alternatives to the procedure were explained to the patient. The specific risks of bleeding, infection, and neurovascular injury were detailed and accepted. Witnessed informed consent was obtained. A 22-gauge spinal needle was positioned under radiographic fluoroscopic localization. Approximately 2 cc of Isovue-300 was instilled for localization purposes. Aspiration was attempted. No fluid was aspirated. The patient tolerated the procedure well without any immediate complications. RAD/Inj/Asp Ramón Jt Should/Hip/Knee IMPRESSION: No fluid was aspirated from the joint space. Electronically Signed: Nato Gates, at 10:20 EDT , Service support ,
== END ==
PROVIDERS: Family Provider Family Medicine; PCP Family Medicine
DX: M25.551 Pain in right hip (principal); Z96.641 Presence of right artificial hip joint; Z47.1 Aftercare following joint replacement surgery
CPT/HCPCS: 20610; 77002; Q9967

== ENCOUNTER → 2019-05-03 07:54 | Outpatient (CLI) | payer MEDICARE, SELFPAY ==
--- NOTE | 2019-05-03 07:56 | CT_ITS ---
STUDY: LOW DOSE CT LUNG CANCER SCREENING REASON FOR EXAM: Female, 73 years old. 30 pack-year smoking history. RADIATION DOSAGE (If Supplied By Facility): CTDIvol = ( 3.02 ) mGy, DLP = ( 92.89 ) mGycm TECHNIQUE: No contrast was administered. Low dose technique was utilized (average mAS-38 and kVp 120). 1.25 mm axial source images with a slice interval of 1.25-mm were reconstructed in lung windows. 2.5 mm axial source images with a slice interval of 2.5-mm were reconstructed in lung windows. 5.0 mm axial source images with a slice interval of 5.0-mm were reconstructed in soft tissue windows. Nodule measured using lung windows on PACS and/or independent workstation with automated measurement of minimum and maximum diameter. Nodule measurement reported as average diameter rounded to the nearest whole number. Growth is defined as an increase ins size of greater than 1.5 mm. COMPARISON: Chest, June 30, 2018. CT of the chest, May 03, 2018. NODULES: Nodule #: 1 Density: Solid Lung location: Right lower lobe: 0 point cm from pleura Location in series: Series Number: 2 Image: 89 Size - D1 x D2 mm: 3 x 3 mm: 3 mm average diameter Margin: Smooth Shape: Route Calcification: No Fat: No Temporal comparison: Stable Total lung nodules (excluding granulomas): 1 Emphysema: Mild emphysematous change. Endobronchial lesion: None Aorta: There is atherosclerotic changes of the thoracic aorta without aneurysm or interval change. Coronary arteries: Stable coronary artery calcifications. Heart: Normal Pulmonary artery: Normal Mediastinal nodes: None Other chest and abdominal findings: Mild degenerative changes of the thoracic spine. CT/Low Dose CT Lung Screening IMPRESSION: Lung-RADS category 2 - Continue annual screening with LDCT in 12 months. IMPORTANT NOTES FOR USE: ACR Lung-RADS Version 1.0 Assessment Categories Release Date: December 10, 2013 Category: Coded 0-4 bases on nodule(s) with highest degree of suspicion. Negative screen is defined as categories 1 and 2; a positive screen is defined as categories 3 and 4. Category 3 and 4A nodules that are unchanged on interval CT should be coded as category 2, and individuals returned to screening in 12 months. Category 4X: Category 3 or 4 nodules with additional imaging findings that increase the suspicion of lung cancer, such as spiculation, GGN that doubles in size in 1 year, enlarged lymph notes, etc. Category Modifiers: S (significant finding unrelated to lung cancer) and C (prior history of treated lung cancer) may be added to the 0-4 Lung-RADS Electronically Signed: Hesham Silver DO at 21:25 EDT Tel [phone], Service support ,
== END ==
PROVIDERS: Family Provider Family Medicine; PCP Family Medicine; Referring Provider Internal Medicine Pulmonary Disease; Visit Provider Internal Medicine Pulmonary Disease
DX: Z12.2 Encounter for screening for malignant neoplasm of respiratory organs (principal); Z87.891 Personal history of nicotine dependence
CPT/HCPCS: G0297

== ENCOUNTER → 2019-08-20 12:07 | Outpatient (CLI) | payer MEDICARE, SELFPAY ==
[2019-08-20 12:20] LABS: Mucous, Urine 0 SEEN /hpf (<or=2+); Red Blood Cells-Urine 0 SEEN /hpf (0-5); White Blood Cells 0 SEEN /hpf (0-5)
[2019-08-20 13:54] LABS: Color, Urine Yellow (Yellow); Glucose, Dipstick Normal (Normal); Ketone-Dipstick Negative (Negative); Leukocyte Esterase-Dipstick Negative /ul (Negative); Nitrite-Dipstick Negative (Negative); Occult Blood-Urine 10 /ul (Negative); Protein-Dipstick Negative (Negative); Urine Bilirubin Dipstick Negative (Negative); Urine Clarity Clear (Clear); Urine Urobilinogen Normal (Normal)
[2019-08-20 13:55] LABS: Absolute Lymphocyte Count 2.02 X10^3/uL (0.83-4.51); Absolute Neutrophil Count 4.1 X10^3/uL (2.0-7.7); Basophil# 0.04 X10^3/uL; Basophil% 0.6 % (0-1); Eosinophil# 0.16 X10^3/uL; Eosinophils% 2.3 % (0-5); Hematocrit 37.7 % (37-47); Hemoglobin 12.2 g/dL (12.0-15.0); Lymphocyte # 2.02 X10^3/ul (4.0); Lymphocyte % 29.4 % (19-41); Mean Corp Hgb Conc 32.4 g/dL (32-36); Mean Corpuscular Hgb 29.7 pg (27.0-32.0); Mean Corpuscular Volume 91.7 fL (81-99); Mean Platelet Vol. 9.9 fl (6.2-12.0); Monocyte# 0.52 X10^3/uL; Monocyte% 7.6 % (0-10); NRBC Flagged by Analyzer 0 % (0-5); Neutrophil # 4.08 X10^3/uL (2.7-7.7); Neutrophil % 59.5 % (47-70); Platelet Count 231 K/mm3 (150-450); RBC Distribution Width CV 12.4 % (11.6-14.6); RBC Distribution Width SD 41.5 fl (35.1-43.9); Red Blood Count 4.11 M/mm3 (4.2-5.4); White Blood Count 6.9 K/mm3 (4.4-11.0)
[2019-08-20 13:59] LABS: Bacteria RARE /hpf (None Seen); Squamous Epithelial Cells - UA 0-5 SEEN /hpf (5-10)
[2019-08-20 14:12] LABS: Hemoglobin A1c 5.5 % (4.2-6.3)
[2019-08-20 14:13] LABS: Magnesium 1.9 mg/dL (1.6-2.6); T4 Free Direct 1.38 ng/dL (0.76-1.46)
[2019-08-20 14:14] LABS: Vitamin D,25 Hydroxy 56.5 ng/mL (29.95-100.01)
[2019-08-20 14:23] LABS: AST(SGOT) 15 U/L (15-37); Alanine Aminotransfer ALT/SGPT 24 U/L (13-56); Albumin, Serum 3.4 g/dL (3.2-5.0); Alkaline Phosphatase 60 U/L (45-117); Anion Gap 3 (5-15); BUN 16 mg/dL (7-18); BUN/Creat Ratio 22.6 RATIO (10-20); Bilirubin, Direct 0.09 mg/dL (0.00-0.30); Calcium,Total 8.9 mg/dL (8.5-10.1); Chloride 109 mmol/L (98-107); Cholesterol 189 mg/dL (200); Creatinine, Serum 0.71 mg/dL (0.55-1.02); EST Glomerular Filtration Rate 86 mL/min (>60); Est Glom Filt Rate - Afr Amer 104 mL/min (>60); Globulin 3.6 g/dL (2.2-4.2); Glucose 98 mg/dL (74-106); High Density Lipoprotein 71 mg/dL; Potassium 3.7 mmol/L (3.5-5.1); Sodium Level 140 mmol/L (136-145); Triglycerides 82 mg/dL; Very Low Density Lipoprotein 16 mg/dL (5-40)
[2019-08-20 15:06] LABS: Hepatitis B Surface Antibody Reactive; Hepatitis B Surface Antigen Non-Reactive (Nonreactive); Hepatitis C Antibody Non-Reactive (Nonreactive)
== END ==
PROVIDERS: Family Provider Family Medicine; PCP Family Medicine; Referring Provider Nurse Practitioner Family; Visit Provider Nurse Practitioner Family
DX: L40.0 Psoriasis vulgaris (principal); E55.9 Vitamin D deficiency, unspecified; R79.89 Other specified abnormal findings of blood chemistry; E11.9 Type 2 diabetes mellitus without complications; R00.0 Tachycardia, unspecified; Z48.817 Encounter for surgical aftercare following surgery on the skin and subcutaneous tissue
CPT/HCPCS: 36415; 80048; 80061; 80076; 81001; 82306; 83036; 83735; 84439; 84443; 85025; 86480; 86704; 86706; 86803; 87340; 87385

== ENCOUNTER → 2019-12-27 | Outpatient (CLI) | payer MEDICARE, SELFPAY ==
--- NOTE | 2019-12-27 12:55 | CT_ITS ---
STUDY: CT LEFT ANKLE WITHOUT CONTRAST REASON FOR EXAM: Female, 74 years old. LEFT FOOT/ANKLE OSTEOARTHRITIS RADIATION DOSAGE (If Supplied By Facility): CTDIvol = ( 15.35 ) mGy, DLP = ( 351.15 ) mGycm TECHNIQUE: Thin section transaxial imaging of the ankle was obtained, with sagittal and coronal reconstructed images. Individualized dose optimization techniques were used for this CT. COMPARISON: None. FINDINGS: The patient is status post fusion of the tibial talar joint utilizing 2 screws. There is evidence of a joint space narrowing and osteoarthritis of the tibial talar joint with degenerative spur formation in the distal tibia as well as in the anterior superior aspect of the talus. Normal talus, calcaneus, navicular and cuboid tarsal bones. Normal subtalar, talonavicular and calcaneocuboid articulations. Normal navicular-cuneiform, cuneiform tarsal bones and intercuneiform articulations. Normal tarsometatarsal articulations and visualized metatarsi. Soft tissue swelling. CT/Extremity Lower without Contra IMPRESSION: Prior fusion of the distal tibial talar joint with 2 screw fixation and narrowing of the joint space. Degenerative spurring of the distal tibia as well as the talus. Soft tissue swelling. Electronically Signed: Nato Gates, at 13:37 EDT , Service support ,
== END | disposition home or self-care (01) ==
LOC: CT 12:53
PROVIDERS: PCP Family Medicine; Referring Provider Podiatrist Foot & Ankle Surgery; Visit Provider Podiatrist Foot & Ankle Surgery
DX: M19.072 Primary osteoarthritis, left ankle and foot (principal); M25.572 Pain in left ankle and joints of left foot
CPT/HCPCS: 73700

== ENCOUNTER → 2019-12-31 | Outpatient (CLI) | payer MEDICARE, SELFPAY ==
[2019-12-31 14:51] LABS: Absolute Lymphocyte Count 2.37 X10^3/uL (0.83-4.51); Absolute Neutrophil Count 6.6 X10^3/uL (2.0-7.7); Basophil# 0.07 X10^3/uL; Basophil% 0.7 % (0-1); Eosinophil# 0.11 X10^3/uL; Eosinophils% 1.1 % (0-5); Hematocrit 41.7 % (37-47); Hemoglobin 13.4 g/dL (12.0-15.0); Lymphocyte # 2.37 X10^3/ul (4.0); Lymphocyte % 23.4 % (19-41); Mean Corp Hgb Conc 32.1 g/dL (32-36); Mean Corpuscular Volume 90.3 fL (81-99); Mean Platelet Vol. 9.4 fl (6.2-12.0); Monocyte% 8.9 % (0-10); NRBC Flagged by Analyzer 0 % (0-5); Neutrophil # 6.62 X10^3/uL (2.7-7.7); Neutrophil % 65.2 % (47-70); Platelet Count 271 K/mm3 (150-450); RBC Distribution Width CV 12.2 % (11.6-14.6); RBC Distribution Width SD 40.2 fl (35.1-43.9); Red Blood Count 4.62 M/mm3 (4.2-5.4); White Blood Count 10.1 K/mm3 (4.4-11.0)
[2019-12-31 15:13] LABS: Vitamin D,25 Hydroxy 54.6 ng/mL
[2019-12-31 15:23] LABS: ALB/GLOB Ratio 0.9 RATIO (0.9-2.4); AST(SGOT) 12 U/L (15-37); Alanine Aminotransfer ALT/SGPT 21 U/L (13-56); Albumin, Serum 3.7 g/dL (3.2-5.0); Alkaline Phosphatase 66 U/L (45-117); Anion Gap 6 (5-15); BUN 24 mg/dL (7-18); BUN/Creat Ratio 28.5 RATIO (10-20); Calcium,Total 9.4 mg/dL (8.5-10.1); Chloride 103 mmol/L (98-107); Creatinine, Serum 0.84 mg/dL (0.55-1.02); EST Glomerular Filtration Rate 70 mL/min (>60); Est Glom Filt Rate - Afr Amer 85 mL/min (>60); Globulin 3.9 g/dL (2.2-4.2); Glucose 105 mg/dL (74-106); Magnesium 2.1 mg/dL (1.6-2.6); Potassium 4.1 mmol/L (3.5-5.1); Protein, Total 7.6 g/dL (6.4-8.2); Sodium Level 139 mmol/L (136-145)
[2019-12-31 15:29] LABS: Microalbumin,Random Urine 7.5 mg/L (NO RANGE EST.); Microalbumin:Creatinine Ratio 11.7 mg/g CRE (<30 mg/g CRE)
== END | disposition home or self-care (01) ==
LOC: MTLAB 12:23
PROVIDERS: PCP Family Medicine; Referring Provider Family Medicine; Visit Provider Family Medicine
DX: E11.9 Type 2 diabetes mellitus without complications (principal); I10 Essential (primary) hypertension; E55.9 Vitamin D deficiency, unspecified; R00.0 Tachycardia, unspecified
CPT/HCPCS: 36415; 80053; 82043; 82306; 82570; 83036; 83735; 84443; 85025

== ENCOUNTER → 2020-03-20 13:37 | Outpatient (CLI) | payer MEDICARE, SELFPAY ==
--- NOTE | 2020-03-20 13:41 | ART_ITS ---
Reason For Study: PVD Procedure A bilateral lower extremity continuous wave Doppler with analog waveform analysis,segmental pressures,and ankle brachial indexes without exercise. Left Segmental Pressures Left brachial= 151mmHg. Left posterior tibial artery = 173mmHg. Left dorsalis pedis artery = 165mmHg. Left digit = 118 mmHg. The left dorsalis pedis waveforms are triphasic. The left posterior tibial artery waveforms are triphasic. Right Segmental Pressures Right brachial= 155mmHg. Right posterior tibial artery = 175mmHg. Right dorsalis pedis artery = 179mmHg. Right digit = 123 mmHg. The right dorsalis pedis waveforms are triphasic. The right posterior tibial artery waveforms are triphasic. Indices The right ankle brachial index by the posterior tibial artery is 1.13. The right ankle brachial index by the dorsalis pedis is 1.15. The right digital-brachial index is .79. The left ankle brachial index by the posterior tibial artery is 1.12. The left ankle brachial index by the dorsalis pedis is 1.06. The left digital-brachial index is .76. Interpretation Summary Triphasic Doppler waveforms are noted at ankle level bilaterally. Pulse-volume recordings appear satisfactory at all levels bilaterally. Resting ankle-brachial indices are normal bilaterally. Digital-brachial indices are normal bilaterally. There is no evidence of significant arterial occlusive disease in the lower extremities bilaterally. Ordering Physician: Eric Ford Performed By: AYAKA MENDOZA Sara
== END ==
PROVIDERS: PCP Family Medicine; Referring Provider Family Medicine; Visit Provider Podiatrist Foot & Ankle Surgery
DX: I73.9 Peripheral vascular disease, unspecified (principal); M19.072 Primary osteoarthritis, left ankle and foot
CPT/HCPCS: 93923

== ENCOUNTER → 2020-03-31 10:00 | Outpatient (CLI) | payer MEDICARE, SELFPAY ==
--- NOTE | 2020-03-17 12:00 | RAD_ITS ---
STUDY: X-RAY CHEST REASON FOR EXAM: Female, 74 years old. PRE-OP. NO CHEST COMPLAINTS TODAY. HX OF TAKING BLOOD PRESSURE MEDICATION. TECHNIQUE: PA and lateral views of the chest. COMPARISON: Comparison is made with prior study dated 06/30/2018. FINDINGS: Hyperinflation. The lungs are clear. There is no demonstrated pleural abnormality. Normal size heart. Normal mediastinum and jose. Normal visualized pulmonary arteries. There is atherosclerotic calcification of the aortic arch with tortuosity. Prior laminectomy and fusion of the lumbar spine. Normal visualized ribs, clavicles, and shoulders. There is no demonstrated abnormality of the visualized soft tissue structures of the upper abdomen. RAD/Chest PA and Lateral IMPRESSION: Hyperinflation. The lungs are clear. Electronically Signed: Nato Gates, at 12:54 EDT , Service support ,
--- NOTE | 2020-03-17 12:01 | EKG12_ITS ---
Test Reason : PRE OP Blood Pressure : / mmHG Vent. Rate : 060 BPM Atrial Rate : 060 BPM P-R Int : 150 ms QRS Dur : 084 ms QT Int : 400 ms P-R-T Axes : 026 040 044 degrees QTc Int : 400 ms Normal sinus rhythm Normal ECG Confirmed by BRAEDEN JOYA, CHRIS ([id number]), magazine editor FLORENTINO ESPARZA ([id number]) on 03/19/2020 11:02:47 AM Referred By: Eric Ford Confirmed By:CHRIS DERAS MD
[2020-03-17 12:05] LABS: Hematocrit 42.6 % (37-47); Hemoglobin 13.6 g/dL (12.0-15.0); Mean Corp Hgb Conc 31.9 g/dL (32-36); Mean Corpuscular Hgb 29.2 pg (27.0-32.0); Mean Corpuscular Volume 91.6 fL (81-99); Mean Platelet Vol. 9.4 fl (6.2-12.0); Platelet Count 242 K/mm3 (150-450); RBC Distribution Width CV 12.7 % (11.6-14.6); Red Blood Count 4.65 M/mm3 (4.2-5.4); White Blood Count 8.5 K/mm3 (4.4-11.0)
[2020-03-17 12:14] LABS: Partial Thromboplast Time 25.8 Seconds (24.1-36.2); Prothrombin Time (Protime)PT. 12.5 SECONDS (11.7-14.9)
[2020-03-17 12:25] LABS: Hemoglobin A1c 6.2 % (3.8-5.6)
[2020-03-17 13:09] LABS: Anion Gap 5 (5-15); BUN 13 mg/dL (7-18); BUN/Creat Ratio 15.8 RATIO (10-20); Calcium,Total 9.7 mg/dL (8.5-10.1); Chloride 105 mmol/L (98-107); Creatinine, Serum 0.82 mg/dL (0.55-1.02); EST Glomerular Filtration Rate 72 mL/min (>60); Est Glom Filt Rate - Afr Amer 87 mL/min (>60); Glucose 104 mg/dL (74-106); Potassium 4.2 mmol/L (3.5-5.1); Sodium Level 140 mmol/L (136-145)
== END ==
PROVIDERS: Anesthesiology; PCP Family Medicine; Referring Provider Podiatrist Foot & Ankle Surgery; Visit Provider Podiatrist Foot & Ankle Surgery
DX: Z01.818 Encounter for other preprocedural examination (principal); Z11.59 Encounter for screening for other viral diseases
CPT/HCPCS: 36415; 71046; 80048; 83036; 85027; 85610; 85730; 87635; 93005; 94799; C9803; U0003

== ENCOUNTER → 2020-04-07 | Outpatient (CLI) | payer MEDICARE, SELFPAY ==
[2020-04-04 09:28] VITALS: BMI 36.9
--- NOTE | 2020-04-07 10:16 | STRESSREP_ITS ---
Stress Test Report Pharmacologic myocardial perfusion stress test. 74-year-old lady for preoperative cardiac evaluation. Stress protocol: Resting EKG demonstrates normal sinus rhythm with a rate of 58 bpm resting blood pressure is 124/80 mmHg. 0.4 mg of regadenoson was infused per usual protocol followed Intravenous saline flush injection continuous front desk monitor was performed. The maximum heart rate attained was 89 bpm which was 60% of maximum projected heart rate the maximum workload was 1 metabolic equivalent. At rest there were no ST or T wave changes noted suggest abnormal flow reserve at peak infusion nonspecific ST-T wave changes were noted with no meet the criteria for ischemia. No clinical angina was noted. The maximum blood pressure was 144/88 mmHg. Myocardial perfusion protocol. 11.3 mCi of technetium 99m sestamibi was injected at rest. 0.4 mg of regadenoson was infused per usual protocol. At peak infusion 33.8 mCi of technetium 99m sestamibi was injected stress images were obtained stress and rest images are reconstructed and compared in the short axis vertical long horizontal long axis. Gated images were also obtained Perfusion SPECT analysis: Review of the stress images demonstrate a medium size defect noted in the mid anterior wall on the stress images improving on the resting images. The above is suggestive of mid anterior ischemia. The rest of the joel appear to be well perfused. Gated SPECT analysis: The gated ejection fraction 75%. Conclusion: Abnormal pharmacologic myocardial perfusion stress test with evidence of anterior ischemia. Preserved ejection fraction.
== END | disposition home or self-care (01) ==
PROVIDERS: PCP Family Medicine; Referring Provider Internal Medicine Cardiovascular Disease; Visit Provider Internal Medicine Cardiovascular Disease
DX: Z01.810 Encounter for preprocedural cardiovascular examination (principal); R06.00 Dyspnea, unspecified
CPT/HCPCS: 78452; 93017; A9500; A4216; J2785

== ENCOUNTER 2020-04-10 06:36 | Day surgery (SDC) | payer MEDICARE, SELFPAY ==
[2020-04-04 09:28] VITALS: BMI 36.9
[2020-04-09 07:13] VITALS: BMI 36.9
--- NOTE | 2020-04-10 06:37 | HP_ITS ---
[facility] History of Present Illness Details: Pleasant 74-year-old lady with a history of hypertension, diabetes mellitus, orthopedic problems who presents for preoperative evaluation. She also has a [id number] history of tobacco use. She denies any chest pain or shortness of breath or paroxysmal nocturnal dyspnea no neck arm or jaw discomfort to suggest angina. She has been on medication for her blood pressure as well as atenolol for her heart rate according to her for years. She has tolerated all those well. Her physical exam here demonstrates clear lung reyes regular rate and rhythm no pedal edema and her electrocardiogram demonstrates normal sinus rhythm with no acute changes. Intake Vital Signs 04/04/20 Height 5 ft 04/04/20 Weight: 189 lb 04/04/20 BMI 36.9 04/04/20 BP 123/73 H 04/04/20 Respiration 16 04/04/20 Pulse 60 04/04/20 Pulse Oximetry (%) 93 Intake Visit Reasons: PCP/orth ref'd for pre-op clearance Allergies acetaminophen [From Percocet] Allergy (Verified 04/04/20 09:24) Itching hydrocodone [From Vicodin] Allergy (Verified 04/04/20 09:24) Itching oxycodone [From Percocet] Allergy (Verified 04/04/20 09:24) Itching Penicillins Allergy (Verified 04/04/20 09:24) [facility] Medical History Nicotine dependence (Chronic) Essential (primary) hypertension (Chronic) Anxiety and depression (Chronic) DDD (degenerative disc disease) (Chronic) Obesity (Chronic) Obstructive sleep apnea (Chronic) Type 2 diabetes mellitus (Chronic) Surgical History History of carpal tunnel release (Resolved) History of cataract surgery (Resolved) History of cholecystectomy (Resolved) History of knee replacement (Resolved) History of lumbar fusion (Resolved) History of open reduction and internal fixation (ORIF) procedure (Resolved) History of total hip arthroplasty (Resolved) Family History Mother CVA (cerebral vascular accident) Social History (Updated 04/04/20 @ 09:[address] Rob Owens MD) Smoking Status: Current every day smoker tobacco type: cigarettes Tobacco: How many years used: 59 ROS Const Const: Positive for other (continues to smoke 0.5 ppd); negative for fatigue, weakness, headache(s), frequent falls, difficulty sleeping or excessive sweating Eyes Eyes: Negative for loss of peripheral vision, transient loss of vision, blurry vision, double vision or tunnel vision ENT ENT: Negative for headache(s), dizziness, Nosebleed/epistaxis or balance problems Cardio Chest Pain: No Palpitations: No Edema: Left (ankle secondary to ORIF/Injury/hardware) Muscle aches with walking: None Resp Respiratory: Positive for SOB with activity (whenwalking fast uphill); negative for SOB at rest, SOB orthopnea\SOB lying down, Cough or paroxysmal nocturnal dyspnea GI GI: Negative nausea, vomiting, heartburn or black,tarry stools : Negative for hematuria Musc Musc: Negative for muscle aches/ myalgia, muscle weakness, joint pain or balance problems Skin Skin: Negative non-healing lesions, rash or unusual bruising Neuro Neuro: Negative for dizziness, lightheadedness, near syncope, syncope, orthostatic symptoms, frequent falls, headache(s), weakness, blurry vision, double vision or lack of coordination Lucio Hematologic/Lymphatic: Negative for easy bleeding or easy bruising Endo Endo: Negative for fatigue, excessive sweating or increased thirst/drinking Psych Psych: Negative for anxiety or depression Allergy Allergy/Immunology: Negative for hives, Negative for rash Cardiology Exam Const Appearance: cooperative, healthy appearing, no acute distress, well developed and well groomed Nutritional Appearance: average body habitus and well nourished Orientation: alert, awake and oriented x3 Head Head: normal to inspection, normocephalic and atraumatic Ears: hearing grossly normal bilaterally and external ears normal Nose: external nose normal, nares normal, nasal mucous membranes and turbinates normal, septum normal, no nasal discharge Face and Sinus: face symmetric Mouth: oral mucosae normal, tongue normal, oropharynx normal and moist mucous membranes Teeth and gingiva: dentition normal Throat: posterior oropharynx normal, tonsils normal and uvula midline Eyes General: appearance normal, both eyes and all related structures Eyelids: eyelids normal Conjunctivae: conjunctivae normal Pupils: PERRL, normal by confrontation and accommodation normal EOM: EOM intact bilaterally Neck Neck: normal visual inspection, trachea midline and no JVD JVD: +5 Carotids: normal carotid upstroke and bounding pulses Chest Chest inspection: normal inspection of the chest, symmetric chest movement and normal respiratory effort Auscultation: Bilateral: Clear to Auscultation Cardio Palpation: normal PMI Rate: regular rate Rhythm: regular rhythm Heart sounds: S1 normal, S2 normal and normal, physiologic split S2; negative rub, gallop or murmur GI GI: normal to inspection, soft, no hepatosplenomegaly and bowel sounds present Neuro General: alert, awake, oriented x3, gait normal, moves all extremities and no focal sensory deficit Skin Skin: no rashes or lesions noted Extremities Pulses: Normal: Right Femoral Pulse, Left Femoral Pulse, Right Dorsalis Pedis Pulse, Left Dorsalis Pedis Pulse, Right Posterior Tibial Pulse, Left Posterior Tibial Pulse, Right Radial Pulse, Left Radial Pulse Lower Extremity Edema: None: Bilateral Musculoskel Musculoskeletal: No joint tenderness Psych Psychological: normal affect Assessment & Plan Problems 1. Preop cardiovascular exam Z01.810 Plan Her preoperative cardiovascular exam at the moment appears to be stable. She does have hypertension and diabetes mellitus both of which appear to be well controlled however these do represent risk factors. EKG is normal. I would recommend that we obtain a pharmacologic myocardial perfusion stress test and this is normal then she can proceed with the surgery continuing her medications up to and including the day of surgery. Orders Orders: Nuclear Stress Test - Chemical Today F17.200, I10, R06.00, Z01.810 Plan Detail Follow Up prn Coding Level of Care Code Off vis,new,level 4 Diagnoses Preop cardiovascular exam Z01.810 Coding Level of Care Code Off vis,new,level 4 Diagnoses Preop cardiovascular exam Z01.810 Supplemental Info Supplemental Information Labs LDL Cholesterol 102 mg/dL (0-130) 08/20/19 HDL Cholesterol 71 mg/dL (40-) 08/20/19 Triglycerides 82 mg/dL (-199) 08/20/19 VLDL Cholesterol 16 mg/dL (5-40) 08/20/19 Diagnostics Electrocardiogram 03/17/20 Chest X-Ray 03/17/20
--- NOTE | 2020-04-10 08:39 | CL.D_ITS ---
Patient Name: KARISSA CHANDLER Study Date: 04/10/2020 Performing: Rob Owens MD Ht: 59.84 inches 152 cm : 1945 Wt: 189.6 lbs 86 kg Age: 74 Gender: female BSA: 1.82 PROCEDURE(S) PERFORMED [id number]/LV CLINICAL PROFILE AND INDICATIONS Indications: Suspected CAD Heart Failure: None Stress/Imaging Stress Test w/SPECT MPI: Yes Result: Positive Intermediate RiskStress Test with SP ECT MPI: Positive Intermediate Risk CAD Presentations: Symptom unlikely to be ischemic. CONCLUSIONS Normal coronary arteries Normal LV size, wall motion,and systolic function RECOMMENDATIONS Proceed with ankle surgery DESCRIPTION OF PROCEDURE The patient arrived to the procedure lab. The risks and benefits of the procedure as well as a full d escription of our services here and current unavailability of surgical backup were fully explained to the patient and/or their significant other prior to the catheterization. The Timeout was completed, verifying the correct patient and procedure. The patient's procedural site was prepped and draped in the usual fashion. Local anesthetic was given subcutaneously to right radial region with Lidocaine 2% . Using a modified Seldinger technique, arterial access was obtained via the right radial artery, a 6 Fr sheath was inserted. Right Coronary Artery selective angiography was then performed in multiple v iews using a 5 Fr. 4.0 [place] catheter. Left Coronary Artery selective angiography was performed in mu ltiple views using a 5 Fr. 4.0 [place] catheter. Left Ventriculography was performed in VELA projection using a 5 Fr. [place] catheter. LV to AO pullback pressures were then recorded.The arterial sheath was pulled and a TR Band was applied for hemostasis CORONARY ANGIOGRAPHY DOMINANCE: Left Dominant LEFT HEART ASSESSMENT Left Ventricular Ejection Fraction: by LV Gram 60 % Normal LV wall motion Normal Left Ventricular systolic function Normal Left Ventricular systolic function LEFT MAIN: Angiographically normal LEFT ANTERIOR DESCENDING ARTERY: Angiographically normal CIRCUMFLEX ARTERY: Angiographically normal RIGHT CORONARY ARTERY: Angiographically normal COMPLICATIONS No Complications PROCEDURE MEDICATIONS Versed 1 mg IV Fentanyl 50 mcg IV Oxygen: 2 L/min via nasal cannula Heparin diluted in 23cc Heparinized saline. Patient given 10cc IA of this solution. 04/10/2020 08:21: 34 Verapamil 2.5mg, Ntg 100mcgs, 2000 units of Heparin diluted in 23cc Heparinized saline. Patient give n 10cc IA of this solution. 04/10/2020 08:21:34 SUMMARY OF HEMODYNAMIC DATA Time AIR REST ECG 07:06:10 AO 92/56 (74) SA 08:23:23 LV 95/0, 10 08:27:51 LV 78/-2, 6 08:27:58 LV 98/4, 8 08:28:43 LVp 102/2, 9 08:28:47 AOp 101/56 (77) 08:28:52 Signed By Rob Owens MD On 04/10/2020 08:38:16 Rob Owens MD
== END 2020-04-10 10:10 | disposition home or self-care (01) ==
PROVIDERS: PCP Family Medicine; Referring Provider Internal Medicine Cardiovascular Disease; Visit Provider Internal Medicine Cardiovascular Disease
DX: Z01.810 Encounter for preprocedural cardiovascular examination (principal); E11.9 Type 2 diabetes mellitus without complications; I10 Essential (primary) hypertension; F17.210 Nicotine dependence, cigarettes, uncomplicated; E66.9 Obesity, unspecified; Z68.36 Body mass index [BMI] 36.0-36.9, adult
CPT/HCPCS: 93458; 99152; J7040; Q9967; C1769; C1894

== ENCOUNTER → 2020-04-17 | Outpatient (CLI) | payer MEDICARE, SELFPAY ==
[2020-04-09 07:13] VITALS: BMI 36.9
[2020-04-17 09:48] LABS: Bacteria 0 SEEN /hpf (None Seen); White Blood Cells 0 SEEN /hpf (0-5)
[2020-04-17 12:21] LABS: Absolute Lymphocyte Count 1.58 X10^3/uL (0.83-4.51); Absolute Neutrophil Count 3.5 X10^3/uL (2.0-7.7); Basophil# 0.04 X10^3/uL; Basophil% 0.7 % (0-1); Eosinophil# 0.19 X10^3/uL; Eosinophils% 3.2 % (0-5); Hematocrit 42.8 % (37-47); Hemoglobin 13.7 g/dL (12.0-15.0); Lymphocyte # 1.58 X10^3/ul (4.0); Lymphocyte % 26.6 % (19-41); Mean Corpuscular Hgb 29.9 pg (27.0-32.0); Mean Corpuscular Volume 93.4 fL (81-99); Mean Platelet Vol. 10.2 fl (6.2-12.0); Monocyte# 0.57 X10^3/uL; Monocyte% 9.6 % (0-10); NRBC Flagged by Analyzer 0 % (0-5); Neutrophil # 3.53 X10^3/uL (2.7-7.7); Neutrophil % 59.2 % (47-70); Platelet Count 252 K/mm3 (150-450); RBC Distribution Width CV 12.6 % (11.6-14.6); RBC Distribution Width SD 43.1 fl (35.1-43.9); Red Blood Count 4.58 M/mm3 (4.2-5.4)
[2020-04-17 12:27] LABS: Color, Urine Yellow (Yellow); Glucose, Dipstick Normal (Normal); Ketone-Dipstick Negative (Negative); Leukocyte Esterase-Dipstick Negative /ul (Negative); Nitrite-Dipstick Negative (Negative); Occult Blood-Urine 10 /ul (Negative); Protein-Dipstick Negative (Negative); Urine Bilirubin Dipstick Negative (Negative); Urine Clarity Sl. Cloudy (Clear); Urine Urobilinogen Normal (Normal)
[2020-04-17 12:41] LABS: Microalbumin,Random Urine 10.2 mg/L (NO RANGE EST.); Microalbumin:Creatinine Ratio 6.9 mg/g CRE (<30 mg/g CRE)
[2020-04-17 12:42] LABS: Vitamin D,25 Hydroxy 64.7 ng/mL
[2020-04-17 12:46] LABS: ALB/GLOB Ratio 0.9 RATIO (0.9-2.4); AST(SGOT) 20 U/L (15-37); Alanine Aminotransfer ALT/SGPT 24 U/L (13-56); Albumin, Serum 3.4 g/dL (3.2-5.0); Alkaline Phosphatase 69 U/L (45-117); Anion Gap 6 (5-15); BUN 15 mg/dL (7-18); BUN/Creat Ratio 17.8 RATIO (10-20); Calcium,Total 9.1 mg/dL (8.5-10.1); Chloride 108 mmol/L (98-107); Cholesterol 197 mg/dL (200); Creatinine, Serum 0.84 mg/dL (0.55-1.02); EST Glomerular Filtration Rate 71 mL/min (>60); Est Glom Filt Rate - Afr Amer 85 mL/min (>60); Globulin 3.7 g/dL (2.2-4.2); Glucose 103 mg/dL (74-106); High Density Lipoprotein 61 mg/dL; Mucous, Urine 2+ /hpf (<or=2+); Protein, Total 7.1 g/dL (6.4-8.2); Red Blood Cells-Urine 0-5 SEEN /hpf (0-5); Sodium Level 141 mmol/L (136-145); Squamous Epithelial Cells - UA 0-5 SEEN /hpf (5-10); Thyroid Stim Hormone (TSH) 2.64 uIU/mL (0.358-3.74); Triglycerides 116 mg/dL; Very Low Density Lipoprotein 23 mg/dL (5-40)
[2020-04-17 12:54] LABS: Hemoglobin A1c 5.9 % (3.8-5.6)
== END | disposition home or self-care (01) ==
LOC: MFPLAB 09:44
PROVIDERS: PCP Family Medicine; Referring Provider Family Medicine; Visit Provider Family Medicine
DX: E55.9 Vitamin D deficiency, unspecified (principal); E11.9 Type 2 diabetes mellitus without complications; I10 Essential (primary) hypertension
CPT/HCPCS: 36415; 80053; 80061; 81001; 82043; 82306; 82570; 83036; 84443; 85025

== ENCOUNTER 2020-04-24 14:24 | Observation (INO) | payer MEDICARE, SELFPAY ==
[2020-04-09 07:13] VITALS: BMI 36.9
[2020-04-24] VITALS (12 sets, daily range): BP systolic 106–150; BP diastolic 65–97; PULSE 59–86; RESP 14–16; TEMP 35.6–36.9; O2SAT 93–99; BMI 37.7
[2020-04-24] MEDS: Lactated Ringers 1,000 ML 100 ML IV ×2 (06:48→19:03)
[2020-04-24 07:11] LABS: Bedside Glucose 140 mg/dL (70-110)
--- NOTE | 2020-04-24 07:25 | RAD_ITS ---
STUDY: X-RAY - LEFT ANKLE REASON FOR EXAM: Female, 74 years old. Removal of hardware. 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 Revision of ankle fusion. TECHNIQUE: 50 intraoperative images were performed. view(s) of the ankle. COMPARISON: None. FINDINGS: The initial images demonstrate removal of 2 screws fixating the tibia and talus. Subsequent images demonstrate placement of an external fixation device as well as placement of a plate and screws along the anterior aspect of the tibia and talus. Please refer to the procedural report for further details. RAD/Ankle min 3 Views IMPRESSION: Revision of a left ankle fusion in the OR. Electronically Signed: Hesham Silver DO at 16:50 EDT Tel [phone], Service support ,
[2020-04-24] MEDS: Bupivacaine Mpf 0.5% 30 ML VIAL (13:50)
--- NOTE | 2020-04-24 14:38 | HP.PCM_ITS ---
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 After verbal quest ioning, patient relates that she had a left ankle joint fusion performed by a physician at [facility]. Unfortunately, this fusion failed. Patient states that she was a smoker at that time, and this is believed to be the reason why this failed. Patient did go back to the performing surgeon, but no further intervention was performed. Patient initially presented to me in December 2019. After reviewing the x-rays, there was an obvious nonunion of the left ankle joint. This was confirmed on CT scan analysis. Multiple conservative therapies were employed, including [id number] bracing, custom bracing, modification of shoe gear, cortisone injections, physical therapy. Furthermore, in the past, patient has attempted to use a bone stimulator. All the conservative measures that were employed ultimately failed. Patient had continued pain of his left ankle, limiting her activities of daily living and her lifestyle. Patient states that she had quit smoking since the previous surgery, and that she no longer uses nicotine. I did discuss surgical intervention with the patient, including removal of hardware of the left ankle, or reattempted ankle joint fusion via internal fixation and external fixation. The risks, benefits, possible outcomes, possible complications of the procedure were discussed with the patient. Since the patient had a previous attempted fusion and was a smoker for a long time, she is at an even higher risk of postoperative complications. These include but not limited to delayed or nonhealing wounds, delayed or nonhealing bone, DVT, infection, decreased function of limb, continued pain, damage to surrounding structures, loss of limb, loss of life. Due to the significant pain that was present and the failure of conservative measures, patient elected for surgical intervention. Initially, I did recommend external fixation. Patient did not want this performed, and was requesting internal fixation, stating that she accepts the risks. Surgery was originally scheduled for April 10, 2020. Due to abnormal cardiac findings, her firestopper technician ordered her cardiac catheterization. After this, she was cleared for surgery from her firestopper technician. Surgery was scheduled for today, April 24, 2020. Patient tolerated the anesthesia and the procedure well. Patient will be admitted to observation for continued pain control and continued postoperative monitoring. Past Medical History Past Medical History (Chronic Problems): Chronic Problems (Last Updated 04/24/20 @ 14:[address] 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 Eric Ford, CANDICE) Nicotine dependence (Chronic) F17.200 Essential (primary) hypertension (Chronic) I10 Atrial fibrillation I48.91 Anxiety and depression F41.9, F32.9 DDD (degenerative disc disease) Obesity E66.9 Obstructive sleep apnea G47.33 Type 2 diabetes mellitus E11.9 Allergies hydrocodone [From Vicodin] Allergy (Verified 04/15/20 10:05) Itching oxycodone [From Percocet] Allergy (Verified 04/15/20 10:05) Itching Penicillins Allergy (Verified 04/15/20 10:05) Hives Home Medications: Ambulatory Orders Medication Instructions Recorded Acetaminophen [Tylenol Extra 500 - 1,000 mg PO Q6H PRN PRN 03/31/20 Strength] Apremilast [Otezla] 30 mg PO QHS 03/31/20 Aspirin [Aspirin EC] 81 mg PO QHS 03/31/20 Atenolol [Tenormin (Beta Gerardo)] 50 mg PO BID 03/31/20 Calcium Carbonate [Elemental 600 mg PO BID 03/31/20 Calcium] Calcium Polycarbophil [Fibercon] 1,200 mg PO DAILY 03/31/20 Cholecalciferol (Vitamin D3) 2,000 unit PO DAILY 03/31/20 [Vitamin D3] Escitalopram Oxalate [Lexapro] 5 mg PO QHS 03/31/20 Ibuprofen 600 mg PO PRN PRN 03/31/20 Lutein 6 mg PO DAILY 03/31/20 Metformin HCl [Glucophage Xr] 500 mg PO DAILY 03/31/20 Valsartan [Diovan] 160 mg PO QHS 03/31/20 traZODone [Desyrel] 100 mg PO QHS 03/31/20 Gabapentin [Neurontin] 300 mg PO TID 04/15/20 Surgical History: Surgical History (Last Updated 04/10/20 @ 16:58 by Mikayla Noel) History of carpal tunnel release Z98.890 History of cataract surgery Z98.49 History of cholecystectomy Z90.49 History of knee replacement Z96.659 History of left heart catheterization Onset Date: 04/10/20 Z98.890 History of lumbar fusion Z98.1 History of open reduction and internal fixation (ORIF) procedure Z98.890 left ankle History of total hip arthroplasty Z96.649 Psychiatric History: Depression Lives: Spouse/ Significant Other Smoking Status: Former smoker Alcohol: None Drugs: None Review of Systems Constitutional: Denies: Anorexia, Chills, Fever, Night Sweats Eyes: Denies: Blurred vision, Cataracts HEENT: Denies: Difficulty Hearing, Difficulty Swallowing, Dysphasia Cardiovascular: Denies: Chest Pain, Claudication, Chest Pressure Respiratory: Denies: Cough, Hemoptysis, Shortness of Breath, Shortness of breath at rest, Shortness of breath upon exertion Gastrointestinal: Denies: Abdominal Pain, Constipation, Diarrhea Genitourinary: Denies: Dysuria Musculoskeletal: Reports: Foot Pain - admits to left ankle pain during ambulation Skin: Denies: Dryness, Jaundice, Lesions Neurological: Denies: Balance problems, Blurred vision, Double vision Psychiatric: Reports: Depression Endocrine: Denies: Change in Body Habitus, Heat/ Cold Intolerance, Polydipsia, Polyuria VTE Information - Inpt Only VTE Present on Admission: No - Lovenox ordered while inpatient and patient D/C on aspirin 325 PO QD VTE Mechan Device Prophylaxis: SCD's VTE Pharm Prophylaxis ordered?: Yes Subjective: Patient seen at bedside resting comfortably. This is postoperatively. Patient admits to pain of her left foot and ankle, well controlled at this time. Patient denies any other acute complaints at this time. Currently, patient denies fever, chills, nausea, vomiting, shortness of breath, chest pain. Patient denies left calf pain. Objective: Lower extremity physical exam: Dressing is clean, dry, intact to left lower extremity with no evidence of disturbance or strikethrough noted. Wound VAC is adequately working with adequate seal and suction noted at 125 mmHg low continuous. Capillary fill time is less than 3 seconds to digits of the left foot. Foot and ankle appear in a rectus position underneath the tibia at this time. Patient unable to feel digits at this time status post nerve block given preoperatively. - Physical Exam Vitals/I&O's: Vital Signs Temp Pulse Resp BP Pulse Ox 98.5 F 65 16 120/73 96 04/24/20 06:35 04/24/20 06:35 04/24/20 06:35 04/24/20 06:35 04/24/20 06:35 Oxygen Delivery Method Room Air Weight: 87.6 kg Body Mass Index (BMI) 37.7 Intake and Output for Last 24 Hours 04/22/20 04/23/20 04/24/20 23:59 23:59 23:59 Intake Total 108 / 108 Output Total 600 / 600 Balance -492 / -492 General: Alert, Oriented x3, Cooperative, No apparent distress HEENT: Atraumatic, PERRLA Oral: Moist Mucosa Neck: Supple, No JVD Lungs: Clear to auscultation, Normal air movement, No rhonchi, No wheeze, No rales Cardiovascular: Regular rate, Regular Rhythm, Normal S1, Normal S2 Abdomen: Bowel Sounds Present, Soft, Non Tender, Non-Distended Extremities: Capillary Refill Less than 3 Seconds Skin: No rashes, No breakdown Musculoskeletal: No Tenderness to Palpation of Joints or Extremities Neurological: Neuro grossly intact Psych/Mental Status: Alert and oriented to time, place, person, mood and affect Laboratory Results 04/24/20 06:27: POC Glucose 140 H Current Medications Lactated Ringer's () 1,000 mls @ 100 mls/hr IV .Q10H ANDRES Last Admin: 04/24/20 06:48 Dose: 100 mls/hr Documented by: Assessment/Plan All Active Problems (Last Updated 04/24/20 @ 14:[address] Eric Ford DPM) Preop cardiovascular exam (Acute) Assessment: This is a 74-year-old female status post postoperative day 0 of a left ankle revisional fusion, removal of hardware, application of bone graft. Plan: Patient chart reviewed and patient evaluated. Full discussion had with the patient about the patient's current clinical condition. At this time, I recommend the patient keep the dressing clean, dry, intact the left lower extremity. This is to not be removed. This is to be reinforced as needed. Patient is to not get this wet. If patient does get this wet, she is to call my office for further instruction. Patient is to remain nonweightbearing to the left lower extremity at this time with assistive devices. Patient is to ice around her left knee 20 minutes on, 20 minutes off, every hour while she is awake. Patient is to elevate her left foot above the level of heart as often as possible. We will continue broad-spectrum IV antibiotics for infection prophylaxis at this time. We will begin DVT prophylaxis with Lovenox tomorrow, April 25. She will use SCDs in the meantime. Her home medications were restarted for her diabetes mellitus and her hypertension. Pain medication ordered to help with her pain. If patient does feel well in the morning of April 25, 2020, I will discharge the patient home. We will continue to follow closely and update accordingly. Procedure Criteria Procedure Type: Elective COVID Risk Discussion: The surgeon/proceduralist and patient have discussed in detail the risk of exposure to and/or potential harm posed by the COVID-19 virus with having a surgery/procedure at this time versus the risk of delaying the surgery/procedure. It is not possible to know either the risk of delaying the surgery or procedure or chance of getting an infection with perfect accuracy, but a joint decision was made between the patient and the surgeon/proceduralist to proceed at this time with the scheduled surgery/procedure as indicated on the consent form. OBSV E&M: 10461 Initial observation care L1
--- NOTE | 2020-04-24 14:54 | RAD_ITS ---
STUDY: X-RAY - LEFT ANKLE REASON FOR EXAM: Female, 74 years old. Postop. TECHNIQUE: 3 view(s) of the ankle. COMPARISON: Intraoperative left ankle, 04/24/2020. FINDINGS: There is a metallic plate along the anterior aspect of the distal fibula and talus with multiple fixation screws. Normal lateral malleoli. A normal tibial talar articulation is not visualized. Normal visualized calcaneus. Arthrosis of the visualized subtalar, talonavicular, calcaneocuboid and tarsal articulations. There is soft tissue swelling. A semiopaque splint is seen along the posterior leg and plantar surface of the foot. RAD/Ankle min 3 Views IMPRESSION: Surgical fusion of the left ankle, as above. Electronically Signed: Hesham Silver DO at 16:52 EDT Tel [phone], Service support ,
--- NOTE | 2020-04-24 15:00 | DCINST_ITS ---
Discharge Diet: Carb Control Diet - add protein! Discharge Activity: May Not Drive, May Not Shower, Use Walker, Use Crutches Weight Bearing Status: No weight bearing Keep extremity elevated above heart level: Left Leg Additional Activity Instructions:: 1. Keep dressing to left leg clean, dry, intact. Do not get dressing wet. Do not remove dressing. If get dressing wet, call office for further instruction. 2. Ice around left knee 20 minutes on, 20 minutes off, every hour while awake until follow-up appointment. 3. Elevate left foot above level of heart as often as possible and as much as possible. 4. No walking or standing on the left foot. Do not place any weight on left foot. Use crutches/walker/knee scooter for assistance. #5. Begin taking doxycycline on Saturday, April 25, 2020, twice a day as instructed. 6. Begin taking aspirin on Saturday, April 25, 2020 twice a day as instructed. #7. Begin taking pain medication as needed. 8. Follow-up in the office at previously scheduled appointment. Call your doctor if your incision/area has: Sudden Increased Bleeding, Increased Pain/ Swelling Call your doctor if you observe: Fever of 101 or Higher, Coldness, Increased Pain, Inability to have a bowel movement, Shortness of breath, Dizziness, Increased palpitations (irregular heartbeat), Calf discomfort, Uncontrolled pain Cleanse incision/area with: Keep Dressing Clean & Dry Allergies/Adverse Reactions: Allergies hydrocodone [From Vicodin] Allergy (Verified 04/15/20 10:05) Itching oxycodone [From Percocet] Allergy (Verified 04/15/20 10:05) Itching Penicillins Allergy (Verified 04/15/20 10:05) Hives Medications to take at Discharge Acetaminophen [Tylenol Extra Strength] 500 - 1,000 mg PO Q6H PRN PRN 03/31/20 Apremilast [Otezla] 30 mg PO QHS 03/31/20 Aspirin [Aspirin EC] 81 mg PO QHS 03/31/20 Atenolol [Tenormin (Beta Gerardo)] 50 mg PO BID 03/31/20 Calcium Carbonate [Elemental Calcium] 600 mg PO BID 03/31/20 Calcium Polycarbophil [Fibercon] 1,200 mg PO DAILY 03/31/20 Cholecalciferol (Vitamin D3) [Vitamin D3] 2,000 unit PO DAILY 03/31/20 Escitalopram Oxalate [Lexapro] 5 mg PO QHS 03/31/20 Ibuprofen 600 mg PO PRN PRN 03/31/20 Lutein 6 mg PO DAILY 03/31/20 Metformin HCl [Glucophage Xr] 500 mg PO DAILY 03/31/20 Valsartan [Diovan] 160 mg PO QHS 03/31/20 traZODone [Desyrel] 100 mg PO QHS 03/31/20 Gabapentin [Neurontin] 300 mg PO TID 04/15/20 Primary Care Physician: Nicholas Alonso MD [Primary Care Provider] - Test Results: Test results from this visit will be discussed in further detail at your follow- up appointment, if applicable. Please Follow Up With: Eric Ford DPM When: On April 30, 2020 in [place] office as previously scheduled Proposed Discharge Date: 04/25/20
--- NOTE | 2020-04-24 15:04 | PCM.OPRPT ---
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 Nonunion of left ankle joint following previous attempted left ankle joint fusion. 2. Left ankle joint primary osteoarthritis. 3. Left ankle pain. Post-Operative Diagnosis: Same as preoperative Surgery/Procedure Performed:: 1. Revisional left ankle joint fusion with internal fixation. 2. Resection of nonunion, left ankle joint. 3. Removal of hardware, left ankle. 4. Application of wound VAC, left ankle. Description of Surgical Findings:: Consistent with diagnosis. Significant breakdown of the previous hardware was noted with multiple metallic fragments throughout the ankle. Furthermore, significant amount of fibrous tissue was contained within the ankle joint. It was with great difficulty to resect all of the metallic pieces and the fibrous tissue. Due to the longstanding nonunion, difficulty was had in reducing the ankle joint into the perfect proper position. concrete hopper operator: Kelly Bruno NP Type of Anesthesia:: General/Regional - With a popliteal and saphenous block to the left lower extremity Anesthesiologist: Patrick Cabral Special Medications: 600 mg of clindamycin given preoperatively, redosed at the 4-hour tamiko. Specimen's removed: None Drains: Incisional wound VAC placed on anterior aspect of the left ankle at 125mmHg Estimated Blood Loss (mL): 150 Description of Procedure: Hemostasis: Pneumatic thigh tourniquet placed at the level of the left thigh at 275 mmHg for 125 minutes Estimated blood loss is 150 mL Materials: #1. His Evon anterior tibiotalar CP plate for the left side. 2. Evon 6.5 x 50 mm cannulated screw. 3. Breezy Point 4.0 x 32 mm cortex screw. 4. Evon 4.0 x 34 mm cortex screw. 5. [place] 4.0 x 44 mm cortical screw. 6. Evon 4.0 x 22 mm locking screw x3. 7. Evon BIO 4. 8. Evon Vitoss. 9. Size 0 Vicryl. 10. Size 2-0 Vicryl. 11. Size 3-0 Vicryl. 12. Size 2-0 nylon. 13. Size 3-0 nylon Injectables: 5 mL of 0.5% bupivacaine plain given a proximal saphenous nerve block fashion Complications: As described above. Multiple metallic pieces contain within the ankle joint due to the previous hardware. Furthermore, difficulty in reducing the joint due to the significant amount of fibrous tissue contained. Condition: Stable Indications: Patient is a 74-year-old female with past medical history significant of hypertension, diabetes mellitus type 2, atrial fibrillation, who underwent an attempted left ankle joint fusion at [facility] in 2015. Unfortunately, this failed. Patient initially saw me in December 2019 for her symptoms. At that time, x-rays were taken, revealing what appeared to me as a nonunion of her left ankle. Patient states that the surgeon who performed the original surgery blamed the nonunion on her smoking. After discussion with her, she did not want to present back to the original surgeon because she was not happy with his bedside manner and feels like nothing was done to help her after her surgery. She came to me seeking further treatment. Patient states that she did stop smoking in hopes of healing her left ankle. at that time, a CT scan was ordered of the left ankle, confirming the diagnosis of nonunion. Multiple conservative therapies were employed and failed, including but not limited to [id number] bracing, custom bracing, inserts, cortisone injections, stretching and strengthening exercises. All these conservative therapies that were employed ultimately failed. Patient stated that the pain that she was experiencing was significantly life altering, inhibiting her activities of daily living. I did discuss surgical intervention, which would include the removal of the current hardware along with a revisional fusion of her left ankle joint. The options for this were internal fixation versus external fixation. I discussed with the patient that since this is a revisional surgery along with her smoking history, she is at a higher risk of postoperative complications. The postoperative complications would not include but not limited to delayed or nonhealing wounds, delayed or nonhealing bone, DVT, infection, decreased function of limb, continued pain, continued decrease of activities of daily living, loss of limb, loss of life, damage to surrounding structures. The risks, benefits, possible outcomes of the procedure were discussed with the patient as well. All the patient's questions were answered to her satisfaction and all of her concerns were addressed. No guarantees were made as to the outcome of the procedure. I did recommend at that time that external fixation be performed due to the patient's history. Patient refused external fixator at that time, and was requesting internal fixation. I did discuss the risks of this once again. Patient was agreeable to having the internal fixation, and stated that she was willing to accept the risks. The proposed surgical procedure would be a left ankle removal of hardware, resection of nonunion, application of bone graft, fusion of left ankle, and application of incisional wound VAC. Surgery was originally scheduled for March. After sending the patient for medical clearance, her primary care doctor recommended that cardiology see her. After performing a stress test, cardiology recommended a cardiac catheterization, and the original surgical date was canceled. After reviewing her cardiac catheterization, the area safety manager cleared her for surgical intervention. Surgical intervention was planned for today, April 24, 2020. Operative report: Before the patient was brought to the operating room, the risks, benefits, possible outcomes, possible complications of the procedure were discussed with the patient once again. The postoperative complications would not include but not limited to delayed or nonhealing wounds, delayed or nonhealing bone, DVT, infection, decreased function of limb, continued pain, continued decrease of activities of daily living, loss of limb, loss of life, damage to surrounding structures. All the patient's questions were answered to her satisfaction and all of her concerns were addressed. No guarantees were made as to the outcome of the procedure. Patient understood all aspects of the procedure, and consent was then signed by the patient. Before the patient was brought to the operating room, the anesthesiologist administered a popliteal block to the left lower extremity. The patient was then brought to the operating room and placed on the operating table in the supine position. After timeout, once general anesthesia was obtained and anesthesia to control the airway and the IV access, all pressure points were padded. Next, a pneumatic thigh tourniquet was placed at the level of the left thigh. Next, a Simms catheter was placed in adequate position. The left foot, ankle, leg were then scrubbed, prepped, draped in the usual sterile manner. At this time, live radiographic evaluation was used to determine the level of the posterior lateral to anterior medial screw crossing the ankle joint. The most proximal and lateral aspect was noted to be in the area of the posterior lateral tibial fibular syndesmotic articulation. Next, the K wire for the cannulated screw was inserted in the area just posterior to the fibula at the level proximal to the syndesmosis. Live radiograph evaluation was used to insert the K wire into the screw. Once this was achieved and confirmed upon x-ray, a stab incision was made at the junction of the K wire and the skin. Blunt dissection was continued down deep to the level of the screw/bone interface. The screwdriver for the screw was placed over the K wire and the screw was removed in its entirety. The K wire was then removed. Radiograph evaluation was then performed, and the entire screw was noted to be removed. The surgical site was then irrigated with copious amounts normal sterile saline. The subcutaneous tissue was reapproximated and coapted utilizing size 3-0 Vicryl. The skin was reapproximated coapted utilizing size 3-0 nylon in a horizontal mattress fashion. At this time, live radiograph evaluation was used to determine the level of the talonavicular joint on the left ankle, anterior ankle joint line, and 8 cm proximal to the ankle joint line. These will all marked on the patient. Furthermore, the medial and lateral malleoli were were identified on radiographs and marked on the patient. Next, the dorsalis pedis pulse was palpated and marked on the patient. At this time, the tibialis anterior tendon and the extensor hallucis longus tendons were palpated and there tendon course was marked on the patient as well. At this time, the left foot, ankle, leg were then elevated and exsanguinated via Esmarch and inflation of the pneumatic thigh tourniquet was performed to 275 mmHg. Attention was then directed back to the anterior aspect the left ankle. At this time, a linear longitudinal incision was made starting at a level 8 cm proximal to the ankle joint line over the extensor hallucis longus tendon extending distally over the anterior ankle joint ending at the level of the talonavicular joint. The distalmost portion of the incision was called a curved slightly medially. This incision was deepened utilizing sharp and blunt dissection. Care was taken to retract all vital neural and vascular structures. All bleeders were cauterized and ligated as necessary. Care was taken make sure that minimal tension was placed on the skin during the entire procedure. At this time, the extensor retinaculum was identified and transected in a fashion similar to that of the skin. At this time, the extensor hallucis longus tendon was identified and the tendon sheath was transected in a fashion similar to that the skin. Care was taken make sure that the tibialis anterior tendon sheath was left intact. At this time, the tibialis anterior tendon was retracted medially and the extensor hallucis longus tendon was retracted laterally, thus exposing the anterior tibial artery/dorsalis pedis artery and the deep peroneal nerve. At this time, a full-thickness incision was made medial to the neurovascular bundle starting at the proximal aspect of the incision extending distally to the distal aspect of the incision. Care was taken make sure that the incision was made medial to the neurovascular bundle and that it did not interfere with the neurovascular bundle. Furthermore, care was taken to make sure that this incision was full-thickness in fashion. Next, a periosteal elevator was used to reflect the periosteal and capsular structures medially and laterally, thus exposing the ankle joint, distal tibia, distal fibula, and talus at the operative site. At this time, visual inspection was then performed of the ankle joint. Multiple metallic pieces were noted. Attempts were made to remove all the metallic pieces, but they were numerous. All of the pieces were not removed for fear of further causing damage to the surrounding soft tissue structures. At this time, visual inspection was then performed of the ankle joint. A significant amount of fibrotic tissue was noted along with a significant osteophytes on the distal anterior tibia and the dorsal part of the talus. At this time, the anterior to posterior screw crossing the ankle joint was identified. Significant bony overgrowth was noted at the head of the screw. An osteotome and mallet were used to remove this bony growth. Once this was removed, the screws removed in entirety. A significant amount of metallosis noted and metallic pieces noted surrounding the screw, and the screw appeared to be fractured in several pieces. It was not broken entirely through. At this time, the surgical site was irrigated with copious amounts of normal sterile saline to remove as many of the metallic pieces as possible. Radiograph evaluation was then performed. Most of the pieces were noted to be removed at this time. At this time, curettes, rongeurs, osteotomes, were used to resect as much of the fibrous tissue contained within the ankle joint and the medial and lateral gutters. Once as much resection was performed, K wires were thrown from medial to lateral through the tibia and medial to lateral through the talus, with care taken to avoid any vital neural and vascular structures along with avoiding the fibula. Next, distractors were placed over these K wires medially and laterally, and distraction of the ankle joint was performed. There noted to be a significant amount of fibrous tissue contained within this ankle joint. Curettes, osteotomes, rongeurs were used to resect as much of this fibrous tissue as possible. Of note was that there was a significant amount of cartilage present on the medial and lateral shoulders of the talus, medial and lateral malleoli, and posterior aspect of the tibiotalar articulation. Attempts were made to remove as much of this cartilage as possible. Once adequate removal of the cartilage and fibrous tissue was performed, the surgical site was irrigated with copious amounts of normal sterile saline. At this time, a mallet and osteotome were used to remove the osteophytes on the distal anterior tibia and the anterior talus. Irrigation was performed once again. Next, subchondral drilling was performed along with fish scaling with a mallet and osteotome. Next, the Evon Bio4 was mixed with peripheral blood and packed into the ankle joint. The pneumatic thigh tourniquet was then released and a prompt hyperemic response was noted to the entirety of the left lower extremity. The dorsalis pedis was noted to be palpable, and no pumper bleeders were noted. All of the bleeders were cauterized and ligated as necessary. At this time, the distractors were then removed and the compressors were placed over the K wires. Dorsiflexion and plantarflexion was then performed of the foot at the level of the ankle. Due to adequate positioning, it was determined that a gastrocnemius recession would not need to be performed. With the foot held in a neutral dorsiflexion and plantar flexion position, slight valgus position, and slight external rotation with the second digit in line with the tibial tuberosity, compression was performed with the compressors over the K wires. This ankle joint was then held via temporary fixation. Of note was that the ankle joint was difficult to reduce due to the previous fusion in a varus position along with the significant fibrotic tissue contained within the ankle joint. Radiograph evaluation was then performed. A neutral dorsiflexion and plantar flexion position was noted and the second toe was noted to be in line with the tibial tuberosity. A decrease in the varus alignment was noted at the ankle joint. At this time, the template for the Evon CP plate was placed over the anterior aspect of the tibia and held via temporary fixation. Radiograph evaluation was then performed. Once adequate positioning was had, the K wire for the reaming was placed and the template was then removed. Reaming for the CP hole was then performed to an adequate depth. Irrigation of the surgical site was performed to remove any cortical bone. Next, the Breezy Point CP plate was placed over the anterior aspect of the tibia. Radiograph evaluation was performed to determine adequate positioning. Once adequate positioning was had, this was held via temporary fixation. Next, the talar holes for the Breezy Point CP plate were affixed to the talus via locking screws. Of note during insertion of the screws was the adequate compression of the plate to the bone. Furthermore, no shifting of the bone occurred during insertion of the screws. Radiograph evaluation was performed to make sure the screws were noted to neither be too long or too short. Next, preparation of the CP hole was performed in standard fashion. At this time, the B[place]zy Point 6.5 cannulated screw was placed in the CP hole and inserted. Once compression was started to be had through the plate at the level of the ankle joint, all temporary fixation was then removed and the CP screw was fully inserted. Of note during insertion of the screw was the significant compression through the plate into the bone that was performed at the tibiotalar joint. No shifting of the joint or the plate occurred during insertion of the CP screw. Once the CP screw was fully inserted, radiograph evaluation was then performed. The CP screw was noted in neither be too long or too short. Furthermore, it was difficult to visualize the ankle joint at this time due to the compression. Clinical inspection was then performed, and multiple times were made to insert a Bellaire elevator into the ankle joint. This was unable to be performed due to the significant compression contained within the ankle joint. At this time, the proximal holes and the distal hole just distal to the CP plate was affixed to the tibia via nonlocking screws. Of note during insertion of the screws was the adequate compression of the plate to the bone. Furthermore, no shifting any of the plate occurred during insertion of the screws. Once all screws were fully inserted, her radiograph evaluation was then performed. All the screws are noted to either be too long or too short and were noted to hold the plate and the ankle in the corrected reduced position. At this time, due to the significant compression contained through the plate and the screw, it was determined that another screw placed into the tibiotalar joint would not be needed. Furthermore, since previous hardware removal was performed and another screw was placed into the ankle joint, along with the bony voids that was present, I did not want to perform more damage into the talus and into the distal tibia. I felt that adequate compression and stablization was had. At this time, the surgical site was irrigated with copious amounts of normal sterile saline. Breezy Point Vitoss was then mixed with peripheral blood and placed into the surgical site around the plate at the tibiotalar joint. Radiograph evaluation was then performed. The plate was noted to be in the anterior aspect of the tibia and was noted to hold the ankle joint in the correct the reduced position. Furthermore, it was difficult to visualize the tibiotalar joint. Also, most of the metallic pieces that were noted preoperatively were removed. At this time, the K wire insertion sites on the medial and lateral aspects of the ankle were reapproximated coapted utilizing 3-0 and 2-0 nylon in a simple interrupted and horizontal mattress fashion for the skin. For the anterior incision, the periosteal and capsular structures were reapproximated coapted utilizing size 0 Vicryl. The extensor hallucis longus tendon sheath was reapproximated coapted utilizing size 2-0 Vicryl. The extensor retinaculum was reapproximated coapted utilizing size 0 Vicryl and size 2-0 Vicryl. The subcutaneous tissue was reapproximated coapted utilizing size 2-0 Vicryl and 3-0 Vicryl. The skin was reapproximated coapted utilizing size 3-0 nylon in an Allgower-Donati suture like fashion. The medial and lateral surgical sites were then dressed with Betadine soaked gauze and Tegaderm. At this time, the I Prevena Wound VAC was applied to the anterior incision. Adequate seal and suction was noted at 125 mmHg. The left foot, ankle, leg were then dressed with a dry sterile dressing consisting of 4 x 4 gauze, ABD pads, wrapped with Kerlix. Care was taken to make sure that no pressure of the hose was placed against the skin. The left foot, ankle, leg were then wrapped in Keron bandage. Next, a stockinette was placed over the left lower extremity. Cast padding was wrapped from the metatarsal heads extending proximally to a level just distal to the tibial tuberosity. A posterior splint was fashioned to the left lower extremity and was adhered to the left lower extremity utilizing Keron bandages. Neurovascular status was assessed at the end of the application and deemed intact the left lower extremity. The patient tolerated the anesthesia and the procedure well and was transported to the PACU with vital signs stable and neurovascular status intact to the left lower extremity. After period of postoperative monitoring, patient will be transferred to the medical surgical unit for postoperative pain control and management. The surgical scheduler, the nurse practitioner, was utilized at the entire procedure. She helped with patient positioning, holding of limb, holding of retractors. She helped with exposure throughout. She helped with bandage application, and cast application. Without the surgical scheduler, surgical time would have been increased and surgical outcome could have been less optimal. - Complications Significant amount of metallic pieces contained within the ankle joint due to breakdown of hardware. Multiple attempts were made to remove all of these pieces but was unable to be achieved because of the amount of damage it would be causing to the soft tissue structures. Significant minute fibrous tissue contained within the ankle joint. No evidence of union was had over the ankle joint. Difficult to reduce the ankle joint in perfect proper position due to significant amount of restrictive movement due to the fibrotic tissue present. - Admit VTE Documentation VTE Present on Admission: No VTE Mechan Device Prophylaxis: SCD's VTE Pharm Prophylaxis ordered?: Yes
[2020-04-24] MEDS: HYDROmorphone 1 MG/ML Syringe IV ×3 (16:43→22:21)
[2020-04-24] MEDS: Calcium Carbonate 500 MG Tablet PO (16:44)
--- NOTE | 2020-04-24 18:15 | NURSING ---
LLE ELEVATED ON PILLOWS, ICE TO BACK OF KNEE. TOES WARM AND MOBILE
[2020-04-24] MEDS: oxyCODONE 5 MG Tablet PO (18:54)
[2020-04-24] MEDS: Atenolol 50 MG Tablet PO (22:11)
[2020-04-24] MEDS: traZODone 100 MG Tablet PO (22:11)
[2020-04-24] MEDS: Gabapentin 300 MG Capsule PO (22:11)
[2020-04-24] MEDS: Losartan Potassium 50 MG Tablet PO (22:12)
[2020-04-24] MEDS: Escitalopram Oxalate 10 MG Tablet 5 MG PO (22:12)
[2020-04-24] MEDS: proMETHazine 25 MG/ML Syringe IM (23:23)
[2020-04-25 02:30] VITALS: BP 118/61; PULSE 65; RESP 14; TEMP 36.6; O2SAT 98
[2020-04-25] MEDS: Lactated Ringers 1,000 ML 100 ML IV (02:50)
[2020-04-25 04:00] VITALS: PULSE 84; RESP 20
[2020-04-25] MEDS: HYDROmorphone 1 MG/ML Syringe IV (05:40)
[2020-04-25] MEDS: Gabapentin 300 MG Capsule PO (05:40)
[2020-04-25] MEDS: Enoxaparin 40 MG/0.4 ML Syringe SC (05:40)
--- NOTE | 2020-04-25 07:31 | PCM.DC.SUM ---
Discharge Date and Diagnosis Date of Admission: 04/24/20 Date of Discharge: 04/25/20 - Primary Discharge Diagnosis Acute Problems: Nonunion, left ankle. Left ankle joint primary arthritis. Diabetes Mellitus Type 2 Hypertension Atrial fibrillation - Secondary Discharge Diagnosis Chronic Problems: Chronic Problems (Last Updated 04/24/20 @ 14:[address] 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 Postop. TECHNIQUE: 3 view(s) of the ankle. COMPARISON: Intraoperative left ankle, 04/24/2020. FINDINGS: There is a metallic plate along the anterior aspect of the distal fibula and talus with multiple fixation screws. Normal lateral malleoli. A normal tibial talar articulation is not visualized. Normal visualized calcaneus. Arthrosis of the visualized subtalar, talonavicular, calcaneocuboid and tarsal articulations. There is soft tissue swelling. A semiopaque splint is seen along the posterior leg and plantar surface of the foot. RAD/Ankle min 3 Views IMPRESSION: Surgical fusion of the left ankle, as above. Electronically Signed: Hesham Silver DO at 16:52 EDT Tel [phone], Service support , Operations: - - Left ankle joint revisional fusion, removal of hardware left ankle, application of bone graft left ankle, application of wound VAC left ankle Summary of Care Provided: The patient is a 74 year old F with past medical history significant of diabetes mellitus type 2, atrial fibrillation, hypertension, who first presented to me in December 2019 with a chief complaint of pain in her left ankle. After verbal questioning, patient relates that she had a left ankle joint fusion performed by a physician at [facility]. Unfortunately, this fusion failed. Patient states that she was a smoker at that time, and this is believed to be the reason why this failed. Patient did go back to the performing surgeon, but no further intervention was performed. Patient initially presented to me in December 2019. After reviewing the x-rays, there was an obvious nonunion of the left ankle joint. This was confirmed on CT scan analysis. Multiple conservative therapies were employed, including [id number] bracing, custom bracing, modification of shoe gear, cortisone injections, physical therapy. Furthermore, in the past, patient has attempted to use a bone stimulator. All the conservative measures that were employed ultimately failed. Patient had continued pain of his left ankle, limiting her activities of daily living and her lifestyle. Patient states that she had quit smoking since the previous surgery, and that she no longer uses nicotine. I did discuss surgical intervention with the patient, including removal of hardware of the left ankle, or reattempted ankle joint fusion via internal fixation and external fixation. The risks, benefits, possible outcomes, possible complications of the procedure were discussed with the patient. Since the patient had a previous attempted fusion and was a smoker for a long time, she is at an even higher risk of postoperative complications. These include but not limited to delayed or nonhealing wounds, delayed or nonhealing bone, DVT, infection, decreased function of limb, continued pain, damage to surrounding structures, loss of limb, loss of life. Due to the significant pain that was present and the failure of conservative measures, patient elected for surgical intervention. Initially, I did recommend external fixation. Patient did not want this performed, and was requesting internal fixation, stating that she accepts the risks. Surgery was originally scheduled for April 10, 2020. Due to abnormal cardiac findings, her stagecraft teacher ordered her cardiac catheterization. After this, she was cleared for surgery from her stagecraft teacher. Surgery was performed on April 24, 2020. Patient tolerated the anesthesia and the procedure well. Patient was admitted to observation for continued pain control and continued postoperative monitoring. Patient is seen at bedside resting comfortably. Patient denies acute overnight events. Patient does admit to pain in her shoulder, but admits to minimal pain of her left ankle that is well controlled. Patient denies any acute complaints at this time. Currently, patient denies fever, chills, nausea, vomiting, shortness of breath, chest pain. Patient denies left calf pain. [] Subjective: Seen at bedside resting comfortably. Patient does admit to shoulder pain status post surgery, but has gotten better. Patient admits to left ankle pain, well controlled by medications. Patient feels that she is ready to go home. Patient does have her home set up for nonweightbearing to left lower extremity, and has performed nonweightbearing to the left lower extremity in the past. Patient denies any acute complaints at this time. Currently, patient denies fever, chills, nausea, vomiting, shortness of breath, chest pain. Patient denies left calf pain. Objective: Lower extremity physical exam: Dressing is clean, dry, intact to left lower extremity with no evidence of disturbance or strikethrough noted. Wound VAC is adequately working with adequate seal and suction noted at 125 mmHg low continuous. Capillary fill time is less than 3 seconds to digits of the left foot. Foot and ankle appear in a rectus position underneath the tibia at this time. Gross and protective sensation intact to the digits of the left foot at this time. Negative Osullivan sign noted of the left calf. No tenderness upon palpation and compression of the gastrocnemius muscle. - Physical Exam Vitals/I&O's: Vital Signs Temp Pulse Resp BP Pulse Ox 97.8 F 84 20 H 118/61 98 04/25/20 02:30 04/25/20 04:00 04/25/20 04:00 04/25/20 02:30 04/25/20 02:30 Oxygen Flow Rate (L/min) 2 Oxygen Delivery Method Nasal Cannula Weight: 87.6 kg Body Mass Index (BMI) 37.7 Intake and Output for Last 24 Hours 04/23/20 04/24/20 04/25/20 23:59 23:59 23:59 Intake Total 1734 / 1734 1283.33 / 1283.33 Output Total 1700 / 1700 600 / 600 Balance 34 / 34 683.33 / 683.33 General: Alert, Oriented x3, Cooperative, No apparent distress HEENT: Atraumatic Oral: Moist Mucosa Neck: Supple, No JVD Lungs: Clear to auscultation, Normal air movement, No rhonchi, No wheeze, No rales Cardiovascular: Regular rate, Regular Rhythm, Normal S1, Normal S2 Abdomen: Bowel Sounds Present, Soft, Non Tender, Non-Distended Extremities: Capillary Refill Less than 3 Seconds, No Calf Tenderness Skin: No rashes, No breakdown Neurological: Sensory exam intact to light touch and pain Psych/Mental Status: Alert and oriented to time, place, person, mood and affect Current Medications Acetaminophen (Tylenol) 650 mg PO Q4H PRN PRN PRN Reason: Pain 1-10 or Fever Hydrocodone Bitart/Acetaminophen ([place] 5mg-325mg) 1 - 2 tablet PO Q6H PRN PRN PRN Reason: Pain Score 1-5/10 Atenolol (Tenormin (Beta Gerardo)) 50 mg PO BID [facility] Last Admin: 04/24/20 22:11 Dose: 50 mg Documented by: [facility]cium [facility] ([facility]) [facility] Last Admin: 04/24/20 16:44 Dose: 500 mg Documented by: Calcium Polycarbophil (Fibercon) 1,250 mg PO DAILY [facility] Cholecalciferol (Vitamin D (25mcg)) 2,000 unit PO DAILY [facility] Enoxaparin Sodium (Lovenox) 40 mg SC DAILY@0600 [facility] Last Admin: 04/25/20 05:40 Dose: 40 mg Documented by: Escitalopram Oxalate (Lexapro) 5 mg PO QHS [facility] Last Admin: 04/24/20 22:12 Dose: 5 mg Documented by: Gabapentin (Neurontin) 300 mg PO TID [facility] Last Admin: 04/25/20 05:40 Dose: 300 mg Documented by: Hydromorphone HCl (Dilaudid Inj) 1 mg IV Q2H PRN PRN PRN Reason: Pain Score 6-10/10 Last Admin: 04/25/20 05:40 Dose: 1 mg Documented by: Lactated Ringer's () 1,000 mls @ 100 mls/hr IV .Q10H [facility] Last Infusion: 04/25/20 05:40 Dose: 0 mls/hr Documented by: Clindamycin Phosphate 900 mg/ (Dextrose) 106 mls @ 150 mls/hr IV Q8 [facility] Last Admin: 04/25/20 05:40 Dose: 150 mls/hr Documented by: Losartan Potassium (Cozaar) 50 mg PO QHS [facility] Last Admin: 04/24/20 22:12 Dose: 50 mg Documented by: Metformin HCl (Glucophage) [facility] Ondansetron HCl (Zofran) 8 mg PO Q8H PRN PRN PRN Reason: NAUSEA/VOMITING Oxycodone HCl (Oxyir) 5 mg PO Q6H PRN PRN PRN Reason: Pain Score 6-10/10 Last Admin: 04/24/20 18:54 Dose: 5 mg Documented by: Promethazine HCl (Phenergan) 25 mg IM Q8H PRN PRN PRN Reason: Nausea/vomiting Last Admin: 04/24/20 23:23 Dose: 25 mg Documented by: Sodium Chloride () 10 - 40 ml IV UD PRN PRN Reason: SALINE FLUSH Trazodone HCl (Desyrel) 100 mg PO QHS [facility] Last Admin: 04/24/20 22:11 Dose: 100 mg Documented by: Discharge Diet: Carb Control Diet - add protein! Discharge Activity: May Not Drive, May Not Shower, Use Walker, Use Crutches Weight Bearing Status: No weight bearing Keep extremity elevated above heart level: Left Leg Additional Activity Instructions:: 1. Keep dressing to left leg clean, dry, intact. Do not get dressing wet. Do not remove dressing. If get dressing wet, call office for further instruction. 2. Ice around left knee 20 minutes on, 20 minutes off, every hour while awake until follow-up appointment. 3. Elevate left foot above level of heart as often as possible and as much as possible. 4. No walking or standing on the left foot. Do not place any weight on left foot. Use crutches/walker/knee scooter for assistance. #5. Begin taking doxycycline on Saturday, April 25, 2020, twice a day as instructed. 6. Begin taking aspirin on Saturday, April 25, 2020 twice a day as instructed. #7. Begin taking pain medication as needed. 8. Follow-up in the office at previously scheduled appointment. Call your doctor if your incision/area has: Sudden Increased Bleeding, Increased Pain/ Swelling Call your doctor if you observe: Fever of 101 or Higher, Coldness, Increased Pain, Inability to have a bowel movement, Shortness of breath, Dizziness, Increased palpitations (irregular heartbeat), Calf discomfort, Uncontrolled pain Cleanse incision/area with: Keep Dressing Clean & Dry Home Medications: Medications to take at Discharge Acetaminophen [Tylenol Extra Strength] 500 - 1,000 mg PO Q6H PRN PRN 03/31/20 Apremilast [Otezla] 30 mg PO QHS 03/31/20 Aspirin [Aspirin EC] 81 mg PO QHS 03/31/20 Atenolol [Tenormin (Beta Gerardo)] 50 mg PO BID 03/31/20 Calcium Carbonate [Elemental Calcium] 600 mg PO BID 03/31/20 Calcium Polycarbophil [Fibercon] 1,200 mg PO DAILY 03/31/20 Cholecalciferol (Vitamin D3) [Vitamin D3] 2,000 unit PO DAILY 03/31/20 Escitalopram Oxalate [Lexapro] 5 mg PO QHS 03/31/20 Ibuprofen 600 mg PO PRN PRN 03/31/20 Lutein 6 mg PO DAILY 03/31/20 Metformin HCl [Glucophage Xr] 500 mg PO DAILY 03/31/20 Valsartan [Diovan] 160 mg PO QHS 03/31/20 traZODone [Desyrel] 100 mg PO QHS 03/31/20 Gabapentin [Neurontin] 300 mg PO TID 04/15/20 Primary Care Physician: Nicholas Alonso MD [Primary Care Provider] - Please Follow Up With: Eric Ford DPM When: On April 30, 2020 in [place] office as previously scheduled Disposition: Home Minutes spent on discharge:: 30 Patient Condition:: Good Medical Necessity - Tobacco Use Smoking Status: Former smoker Meaningful Use Info Meaningful Use Diagnoses (Choose all that apply): None applicable OBSV E&M: 69375 Subsequent observation care L2
[2020-04-25 07:33] VITALS: BP 106/57; PULSE 58; RESP 16; TEMP 36.6; O2SAT 97
[2020-04-25 07:37] VITALS: RESP 16; O2SAT 97
[2020-04-25] MEDS: Calcium Carbonate 500 MG Tablet PO (07:58)
[2020-04-25] MEDS: metFORMIN HCl 500 MG Tablet PO (07:58)
[2020-04-25] MEDS: oxyCODONE 5 MG Tablet PO (10:18)
--- NOTE | 2020-04-25 10:27 | CASEMGMT ---
MILTON MANUEL NOTE: Pt being discharged. MILTON MANUEL to room to talk with pt/discuss any discharge needs/concerns. Introduced self and role of MILTON MANUEL. Pt states she lives with her who is supportive and able to help her as needed. Pt wishes to discharge home w/her and denies need for therapy or HHC. Pt did state has been interested in having someone come in to help relieve her for a couple of hours. Pt made aware insurance does not cover for aides unless she is receiving Skilled level of care such as a nurse or therapy, and even then, the aide would only be available to assist with bathing/dressing. Pt states she does not feel she needs HHC or aides for this, mostly just for helping around the house. Pt provided a list of local private-duty aide agencies. She voiced appreciation. PCP: Dr Alonso Specialists: Dr Kinney--pulmonology, Dr Guillermo Ford-ortho Pharmacy: [facility]. DME: Has walker, knee scooter, W/C, and CPAP. Denies need for further DME. D/C plan: Home w/spousal support and discharge plans in place. Pt will go home w/[facility] wound vac and to f/u with Dr Guillermo Ford on Apr 30. Marco HEARN RN, CM
== END 2020-04-25 10:35 | disposition home or self-care (01) ==
LOC: SDC 14:46 → MS3 19:40
PROVIDERS: Anesthesiology; Admitting Provider Podiatrist Foot & Ankle Surgery; PCP Family Medicine; Referring Provider Podiatrist Foot & Ankle Surgery; Visit Provider Podiatrist Foot & Ankle Surgery
DX: M96.0 Pseudarthrosis after fusion or arthrodesis (principal); Y83.8 Other surgical procedures as the cause of abnormal reaction of the patient, or of later complication, without mention of misadventure at the time of the procedure; Z11.59 Encounter for screening for other viral diseases; M19.072 Primary osteoarthritis, left ankle and foot; E66.9 Obesity, unspecified; E11.9 Type 2 diabetes mellitus without complications; I10 Essential (primary) hypertension; I48.91 Unspecified atrial fibrillation; G47.33 Obstructive sleep apnea (adult) (pediatric); F41.9 Anxiety disorder, unspecified; F32.9 Major depressive disorder, single episode, unspecified; Z68.37 Body mass index [BMI] 37.0-37.9, adult; Z87.891 Personal history of nicotine dependence; Z79.899 Other long term (current) drug therapy; Z79.82 Long term (current) use of aspirin; Z79.84 Long term (current) use of oral hypoglycemic drugs
CPT/HCPCS: 01480; 27870; 64445; 73610; 76000; 82962; 87635; 96361; 96365; 96366; 96372; 96375; 96376; 99218; C1713; C9803; J7120; G0378; G0379; J2405; U0003

== ENCOUNTER → 2020-05-23 | Outpatient (CLI) | payer MEDICARE, SELFPAY ==
[2020-04-24 16:16] VITALS: BMI 37.7
--- NOTE | 2020-05-23 12:49 | CT_ITS ---
STUDY: LOW DOSE CT LUNG CANCER SCREENING REASON FOR EXAM: Female, 75 years old. History of tobacco abuse. 60 pack year history: 3 weeks ago. RADIATION DOSAGE (If Supplied By Facility): CTDIvol = ( 3.02 ) mGy, DLP = ( 94.78 ) mGycm TECHNIQUE: No contrast was administered. Low dose technique was utilized (average mAS-38 and kVp 120). 1.25 mm axial source images with a slice interval of 1.25-mm were reconstructed in lung windows. 2.5 mm axial source images with a slice interval of 2.5-mm were reconstructed in lung windows. 5.0 mm axial source images with a slice interval of 5.0-mm were reconstructed in soft tissue windows. Nodule measured using lung windows on PACS and/or independent workstation with automated measurement of minimum and maximum diameter. Nodule measurement reported as average diameter rounded to the nearest whole number. Growth is defined as an increase ins size of greater than 1.5 mm. COMPARISON: 05/03/2019. NODULES: Nodule #: 1 Density: Solid Lung location: Left lower lobe: Pleural-based Location in series: Series Number: 2 Image: 86 Size - D1 x D2 mm: 3 x 3 mm: 3 mm average diameter Margin: Smooth Shape: Round Calcification: Question of calcification on today''s study. Fat: No Temporal comparison: Stable Total lung nodules (excluding granulomas): 0 Emphysema: Endobronchial lesion: Aorta: Stable atherosclerotic changes of the thoracic aorta. Coronary arteries: Stable coronary artery calcifications. Heart: Normal Pulmonary artery: Normal Mediastinal nodes: Not Other chest and abdominal findings: Minimal degenerative changes of the thoracic spine. CT/Low Dose CT Lung Screening IMPRESSION: Lung-RADS category 2 - Continue annual screening with LDCT in 12 months. IMPORTANT NOTES FOR USE: ACR Lung-RADS Version 1.0 Assessment Categories Release Date: December 10, 2013 Category: Coded 0-4 bases on nodule(s) with highest degree of suspicion. Negative screen is defined as categories 1 and 2; a positive screen is defined as categories 3 and 4. Category 3 and 4A nodules that are unchanged on interval CT should be coded as category 2, and individuals returned to screening in 12 months. Category 4X: Category 3 or 4 nodules with additional imaging findings that increase the suspicion of lung cancer, such as spiculation, GGN that doubles in size in 1 year, enlarged lymph notes, etc. Category Modifiers: S (significant finding unrelated to lung cancer) and C (prior history of treated lung cancer) may be added to the 0-4 Lung-RADS Electronically Signed: Hesham Silver DO at 14:29 EDT Tel [phone], Service support ,
== END | disposition home or self-care (01) ==
LOC: CT 12:45
PROVIDERS: Family Provider Family Medicine; PCP Family Medicine; Referring Provider Internal Medicine Pulmonary Disease; Visit Provider Internal Medicine Pulmonary Disease
DX: Z87.891 Personal history of nicotine dependence (principal); Z12.2 Encounter for screening for malignant neoplasm of respiratory organs
CPT/HCPCS: G0297

== ENCOUNTER → 2020-07-31 09:39 | Outpatient (CLI) | payer MEDICARE, SELFPAY ==
[2020-04-24 16:16] VITALS: BMI 37.7
--- NOTE | 2020-07-31 09:42 | RAD_ITS ---
STUDY: X-RAY - RIGHT SHOULDER REASON FOR EXAM: Female, 75 years old. Right shoulder pain TECHNIQUE: 4 view(s) of the shoulder. COMPARISON: None. FINDINGS: Normal glenohumeral articulation. Normal acromioclavicular joint. Normal acromion. Normal humeral head and visualized proximal humerus. The soft tissue structures are unremarkable. Normal visualized pulmonary apex. RAD/Shoulder min 2 Views IMPRESSION: Normal x-ray examination of the shoulder. Electronically Signed: Nato Gates, at 12:38 EST , Service support ,
== END ==
PROVIDERS: PCP Family Medicine; Referring Provider Anesthesiology Pain Medicine; Visit Provider Anesthesiology Pain Medicine
DX: M25.511 Pain in right shoulder (principal)
CPT/HCPCS: 73030

== ENCOUNTER → 2020-08-19 10:17 | Outpatient (CLI) | payer MEDICARE, SELFPAY ==
[2020-04-24 16:16] VITALS: BMI 37.7
[2020-08-19 10:21] LABS: Bacteria 0 SEEN /hpf (None Seen); Mucous, Urine 0 SEEN /hpf (<or=2+); Red Blood Cells-Urine 0 SEEN /hpf (0-5); White Blood Cells 0 SEEN /hpf (0-5)
[2020-08-19 12:32] LABS: Absolute Lymphocyte Count 1.87 X10^3/uL (0.83-4.51); Absolute Neutrophil Count 4.7 X10^3/uL (2.0-7.7); Basophil# 0.04 X10^3/uL; Basophil% 0.5 % (0-1); Eosinophil# 0.16 X10^3/uL; Eosinophils% 2.1 % (0-5); Hematocrit 41.7 % (37-47); Hemoglobin 13.1 g/dL (12.0-15.0); Lymphocyte # 1.87 X10^3/ul (4.0); Lymphocyte % 24.7 % (19-41); Mean Corp Hgb Conc 31.4 g/dL (32-36); Mean Corpuscular Hgb 28.6 pg (27.0-32.0); Mean Platelet Vol. 9.9 fl (6.2-12.0); Monocyte# 0.76 X10^3/uL; NRBC Flagged by Analyzer 0 % (0-5); Neutrophil # 4.69 X10^3/uL (2.7-7.7); Platelet Count 259 K/mm3 (150-450); RBC Distribution Width CV 13.7 % (11.6-14.6); RBC Distribution Width SD 46.2 fl (35.1-43.9); Red Blood Count 4.58 M/mm3 (4.2-5.4); White Blood Count 7.6 K/mm3 (4.4-11.0)
[2020-08-19 12:41] LABS: Color, Urine Yellow (Yellow); Glucose, Dipstick Normal (Normal); Ketone-Dipstick Negative (Negative); Leukocyte Esterase-Dipstick Negative /ul (Negative); Nitrite-Dipstick Negative (Negative); Occult Blood-Urine 10 /ul (Negative); Protein-Dipstick Negative (Negative); Specific Gravity, Urine 1.015 (1.002-1.030); Urine Bilirubin Dipstick Negative (Negative); Urine Clarity Clear (Clear); Urine Urobilinogen Normal (Normal)
[2020-08-19 12:46] LABS: ALB/GLOB Ratio 0.9 RATIO (0.9-2.4); AST(SGOT) 19 U/L (15-37); Alanine Aminotransfer ALT/SGPT 29 U/L (13-56); Albumin, Serum 3.3 g/dL (3.2-5.0); Alkaline Phosphatase 111 U/L (45-117); Anion Gap 7 (5-15); BUN 19 mg/dL (7-18); BUN/Creat Ratio 20.9 RATIO (10-20); Calcium,Total 9.6 mg/dL (8.5-10.1); Chloride 107 mmol/L (98-107); Creatinine, Serum 0.91 mg/dL (0.55-1.02); EST Glomerular Filtration Rate 64 mL/min (>60); Est Glom Filt Rate - Afr Amer 78 mL/min (>60); Globulin 3.8 g/dL (2.2-4.2); Glucose 100 mg/dL (74-106); Potassium 3.9 mmol/L (3.5-5.1); Protein, Total 7.1 g/dL (6.4-8.2); Sodium Level 139 mmol/L (136-145)
[2020-08-19 12:47] LABS: Microalbumin,Random Urine 10.6 mg/L (NO RANGE EST.); Microalbumin:Creatinine Ratio 11.9 mg/g CRE (<30 mg/g CRE); Squamous Epithelial Cells - UA 0-5 SEEN /hpf (5-10); Vitamin D,25 Hydroxy 52.8 ng/mL
[2020-08-19 12:51] LABS: Hemoglobin A1c 6.2 % (3.8-5.6)
== END ==
PROVIDERS: PCP Family Medicine; Referring Provider Family Medicine; Visit Provider Family Medicine
DX: E11.9 Type 2 diabetes mellitus without complications (principal); E55.9 Vitamin D deficiency, unspecified; Z72.0 Tobacco use
CPT/HCPCS: 36415; 80053; 81001; 82043; 82306; 82570; 83036; 85025

== ENCOUNTER → 2020-10-06 10:53 | Outpatient (CLI) | payer MEDICARE, SELFPAY ==
[2020-04-24 16:16] VITALS: BMI 37.7
[2020-10-06 12:46] LABS: Hematocrit 43.6 % (37-47); Hemoglobin 14.1 g/dL (12.0-15.0); Mean Corp Hgb Conc 32.3 g/dL (32-36); Mean Corpuscular Hgb 29.4 pg (27.0-32.0); Mean Platelet Vol. 10.1 fl (6.2-12.0); Platelet Count 254 K/mm3 (150-450); RBC Distribution Width CV 13.3 % (11.6-14.6); RBC Distribution Width SD 45.4 fl (35.1-43.9); Red Blood Count 4.79 M/mm3 (4.2-5.4)
== END ==
PROVIDERS: PCP Family Medicine; Referring Provider Family Medicine; Visit Provider Internal Medicine Pulmonary Disease
DX: J43.9 Emphysema, unspecified (principal); R06.00 Dyspnea, unspecified
CPT/HCPCS: 36415; 85027

== ENCOUNTER → 2020-10-24 08:39 | Outpatient (CLI) | payer MEDICARE, SELFPAY ==
[2020-04-24 16:16] VITALS: BMI 37.7
--- NOTE | 2020-10-24 08:41 | RAD_ITS ---
STUDY: X-RAY - ACUTE ABDOMINAL SERIES REASON FOR EXAM: Female, 75 years old. ABDOMINAL PAIN TECHNIQUE: Single view of the chest. Supine and upright, 2 view(s) of the abdomen were obtained. COMPARISON: Prior chest radiograph of 03/17/2020 FINDINGS: The lungs are clear and expanded. Normal size heart. Normal mediastinum and jose. Normal visualized pulmonary arteries. There is atherosclerotic calcification of the aortic arch with tortuosity. There is a non-specific bowel gas pattern. Negative for gross organomegaly. Posterior spinal fusion hardware from L3 through the sacrum, laminectomy and lateral bone grafting. Status post right total hip arthroplasty. RAD/Acute Abdomen Inc Chest IMPRESSION: No acute cardiopulmonary findings or changes. Negative for evidence of bowel obstruction or perforation. Grossly negative for organomegaly. Negative for abnormal abdominal or pelvic calcifications. Status post posterior spinal fusion from L3 through the sacrum, laminectomy and lateral bone grafting. Status post right total hip arthroplasty. Electronically Signed: Danisha Mackey MD at 21:36 EST , Service support ,
== END ==
PROVIDERS: PCP Family Medicine; Referring Provider Family Medicine; Visit Provider Family Medicine
DX: R10.9 Unspecified abdominal pain (principal)
CPT/HCPCS: 74022

== ENCOUNTER → 2020-12-02 12:48 | Outpatient (CLI) | payer MEDICARE, SELFPAY ==
[2020-04-24 16:16] VITALS: BMI 37.7
--- NOTE | 2020-12-02 12:50 | BI_ITS ---
MAMMOGRAPHY - BILATERAL SCREENING REASON FOR EXAM: Female, 75 years old. Routine annual screening examination. PERTINENT HISTORY: Non-contributory. TECHNIQUE: Digital bilateral breast fco (3D mammographic acquisition) in the CC and MLO projections. 2-D mediolateral oblique (MLO) and craniocaudad (CC) views of both breasts were obtained. CAD: Full Field Digital Mammography with Computer Added Detection was performed. COMPARISON: Comparison is made with prior study dated 01/24/2019 and 11/07/2017. FINDINGS: Breast Composition: There are scattered areas of fibroglandular density. There are no dominant masses or suspicious calcifications. No other significant abnormalities are identified. There has been no significant change since the prior study. BI/SCRN MAMM (CAD)W/FCO BILAT IMPRESSION: Stable bilateral screening mammogram. Yearly follow-up mammogram recommended. (A) ASSESSMENT CATEGORY: BIRADS Category 1: Negative. A letter regarding these results will be sent to the patient by the facility within 30 days. Approximately 10% of breast cancers are not detected by mammography. A normal mammogram should not delay biopsy of a clinically suspicious abnormality. [id number] Electronically Signed: Nato Gates MD at 13:58 EDT , Service support ,
--- NOTE | 2020-12-02 12:56 | BD_ITS ---
STUDY: DUAL ENERGY X-RAY ABSORPTIOMETRY / DXA REASON FOR EXAM: Female, 75 years old. Z780. Patient is postmenopausal. Loss of height. TECHNIQUE: Bone Mineral Density (BMD) measurements of bilateral forearms were obtained. COMPARISON: Comparison is made with prior study dated 12/13/2017. FINDINGS: Right Forearm: g/cm2 (0.808) / T-score (-0.9) / Z-score (1.2) Left Forearm: g/cm2 (0.823) / T-score (-0.7) / Z-score (1.4) BD/Dexa Bone Density/Append Skel IMPRESSION: The patient is considered normal as outlined below according to World Andrei Organization (WHO) criteria with a low fracture risk. There has been worsening of bone density since the previous examination. Reference Information: The T-score is the number of standard deviations above or below the standard which is normal for young adults at their peak bone mineral density. The World Health Organization (WHO) interprets the T-scores as follows: Above -1 Normal bone density Between -1 and -2.5 Osteopenia Equal to / or below -2.5 Osteoporosis As a practical clinical guideline, osteopenia may be graded as follows: Mild -1 through -1.5 Moderate -1.6 through -2.0 Severe -2.1 through -2.4 The Z-score is the number of standard deviations above or below age-matched controls. A Z-score of less than -1.5 would be considered abnormal. References: 1. NIH Osteoporosis and Related Bone Diseases www osteo.org 2. International Society for Clinical Densitometry www iscd.org 3. National Osteoporosis Foundation www nof.org Electronically Signed: Nato Gates MD at 15:04 EDT , Service support ,
== END ==
PROVIDERS: PCP Family Medicine; Referring Provider Family Medicine; Visit Provider Family Medicine
DX: Z78.0 Asymptomatic menopausal state (principal); Z12.31 Encounter for screening mammogram for malignant neoplasm of breast
CPT/HCPCS: 77063; 77067; 77081

== ENCOUNTER → 2021-01-21 09:23 | Outpatient (CLI) | payer MEDICARE, SELFPAY ==
[2020-04-24 16:16] VITALS: BMI 37.7
[2021-01-21 09:55] LABS: Bacteria 0 SEEN /hpf (None Seen); Mucous, Urine 0 SEEN /hpf (<or=2+); Red Blood Cells-Urine 0 SEEN /hpf (0-5); White Blood Cells 0 SEEN /hpf (0-5)
[2021-01-21 12:12] LABS: Absolute Lymphocyte Count 1.26 X10^3/uL (0.83-4.51); Absolute Neutrophil Count 5.7 X10^3/uL (2.0-7.7); Basophil# 0.05 X10^3/uL; Basophil% 0.6 % (0-1); Eosinophil# 0.15 X10^3/uL; Eosinophils% 1.9 % (0-5); Hematocrit 47.7 % (37-47); Hemoglobin 15.4 g/dL (12.0-15.0); Lymphocyte # 1.26 X10^3/ul (0.83-4.51); Lymphocyte % 16.2 % (19-41); Mean Corp Hgb Conc 32.3 g/dL (32-36); Mean Corpuscular Hgb 29.8 pg (27.0-32.0); Mean Corpuscular Volume 92.3 fL (81-99); Mean Platelet Vol. 10.6 fl (6.2-12.0); Monocyte# 0.55 X10^3/uL; Monocyte% 7.1 % (0-10); NRBC Flagged by Analyzer 0 % (0-5); Neutrophil # 5.74 X10^3/uL (2.7-7.7); Neutrophil % 73.6 % (47-70); Platelet Count 200 K/mm3 (150-450); RBC Distribution Width CV 12.4 % (11.6-14.6); RBC Distribution Width SD 42.2 fl (35.1-43.9); Red Blood Count 5.17 M/mm3 (4.2-5.4); White Blood Count 7.8 K/mm3 (4.4-11.0)
[2021-01-21 12:13] LABS: Color, Urine Yellow (Yellow); Glucose, Dipstick Normal (Normal); Ketone-Dipstick Negative (Negative); Leukocyte Esterase-Dipstick Negative /ul (Negative); Nitrite-Dipstick Negative (Negative); Occult Blood-Urine Negative /ul (Negative); Protein-Dipstick Negative (Negative); Urine Bilirubin Dipstick Negative (Negative); Urine Clarity Clear (Clear); Urine Urobilinogen Normal (Normal); Urine pH 6.5 (5.0 - 8.0)
[2021-01-21 12:21] LABS: Squamous Epithelial Cells - UA 0-5 SEEN /hpf (5-10)
[2021-01-21 12:38] LABS: Hemoglobin A1c 5.9 % (3.8-5.6)
[2021-01-21 12:44] LABS: ALB/GLOB Ratio 0.9 RATIO (0.9-2.4); AST(SGOT) 25 U/L (15-37); Alanine Aminotransfer ALT/SGPT 29 U/L (13-56); Albumin, Serum 3.3 g/dL (3.2-5.0); Alkaline Phosphatase 89 U/L (45-117); Anion Gap 6 (5-15); BUN 10 mg/dL (7-18); BUN/Creat Ratio 12.5 RATIO (10-20); Calcium,Total 9.1 mg/dL (8.5-10.1); Chloride 108 mmol/L (98-107); Cholesterol 182 mg/dL (200); EST Glomerular Filtration Rate 74 mL/min (>60); Est Glom Filt Rate - Afr Amer 90 mL/min (>60); Globulin 3.8 g/dL (2.2-4.2); Glucose 105 mg/dL (74-106); High Density Lipoprotein 49 mg/dL; Potassium 3.9 mmol/L (3.5-5.1); Protein, Total 7.1 g/dL (6.4-8.2); Sodium Level 143 mmol/L (136-145); Triglycerides 142 mg/dL; Very Low Density Lipoprotein 28 mg/dL (5-40)
[2021-01-21 12:55] LABS: Microalbumin,Random Urine 7.6 mg/L (NO RANGE EST.)
== END ==
PROVIDERS: PCP Family Medicine; Referring Provider Family Medicine; Visit Provider Family Medicine
DX: E55.9 Vitamin D deficiency, unspecified (principal); I10 Essential (primary) hypertension; E11.9 Type 2 diabetes mellitus without complications
CPT/HCPCS: 36415; 80053; 80061; 81001; 82043; 82306; 82570; 83036; 85025

== ENCOUNTER 2021-03-16 08:12 | Day surgery (SDC) | payer MEDICARE, SELFPAY ==
[2020-04-24 16:16] VITALS: BMI 37.7
[2021-03-16] VITALS (10 sets, daily range): BP systolic 84–147; BP diastolic 53–90; PULSE 60–67; RESP 16; TEMP 35.9–36.4; O2SAT 90–97; BMI 38.6
[2021-03-16] MEDS: Lactated Ringers 1,000 ML 100 ML IV ×2 (09:04→12:23)
[2021-03-16 09:20] LABS: Bedside Glucose 133 mg/dL (70-110)
[2021-03-16] MEDS: Lidocaine 2% (20 ml mdv) 20 ML Vial (09:52)
[2021-03-16] MEDS: Bupivacaine Mpf 0.5% 30 ML VIAL (09:52)
--- NOTE | 2021-03-16 10:07 | RAD_ITS ---
PROCEDURE: Spinal cord stimulator implant insertion DATE OF EXAMINATION: 03/16/2020 INDICATION: Female, 75 years old. PHYSICIAN: Todd Ayon MD FLUOROSCOPY TIME (if supplied): (3 minutes and 6 seconds) RADIATION DOSAGE (If Supplied By Facility): 7 fluoroscopic images were obtained CONSENT: The risks, benefits and alternatives to the procedure were explained to the patient, and the patient agreed to the procedure and signed the consent. SEDATION: The direction of Dr. AYON STERILE BARRIER TECHNIQUE: The following sterile barrier precautions were used during the procedure: hand hygiene; use of 2% chlorhexidine aseptic; use of a cap, mask, sterile gown, sterile gloves, sterile full body drape, and a large sterile sheet. PROCEDURE/TECHNIQUE: (All elements of maximal sterile barrier technique followed, including US elements as applicable) The risks, benefits, and alternatives to the procedure were explained to patient, and the patient agreed to the procedure and signed a consent form for the procedure. A timeout was performed to confirm the patient''s identity, the type of procedure, to be performed and the site of entry. RAD/Lumbar Spine 2 or 3 Views IMPRESSION: The neural stimulatory device is place in the thoracic spinal canal under the direction of Dr. AYON. Electronically Signed: Nicholas Buckley DO at 14:33 EDT Tel , Service support ,
[2021-03-16] MEDS: Cefazolin 2 GM in 0.9% Normal Saline 100 ML IV (10:08)
--- NOTE | 2021-03-16 13:48 | PCM.OPRPT ---
Report of Operation Date of Procedure: 03/16/21 Description of Surgical Findings:: Pre-Operative Diagnosis: Lumbosacral radiculopathy, lumbosacral degenerative disc disease, lumbosacral spinal stenosis, postlaminectomy syndrome of the lumbar spine Post-Operative Diagnosis: Lumbosacral radiculopathy, lumbosacral degenerative disc disease, lumbosacral spinal stenosis, postlaminectomy syndrome of the lumbar spine Surgery/Procedure Performed:: 1. Spinal cord stimulator thoracolumbar leads placement x2 #2 spinal cord stimulator Medtronic intellus generator placement #3 spinal cord stimulator generator pocket creation at the left gluteal region #4 spinal cord stimulator simple programming, 5-intraoperative fluoroscopic interpretation Description of Surgical Findings:: ANESTHESIA: MAC COMPLICATIONS: None BLOOD LOSS: Minimal Implanted device: Spinal cord stimulator lead [id number] lot number [id number], lead #2 [id number] lot number [id number] Medtronic spinal cord stimulator generator intellus serial number [id number] PROCEDURE IN DETAIL: History and physical today was reviewed. Risks and benefits of procedure explained. The patient understood, agreed to procedure, informed consent was obtained. IV inserted per routine protocol. The patient was taken to the operating room, placed in the prone position with a pillow positioned underneath the abdomen. A 2 g of Ancef IV piggyback was infused per anesthesia. The lower back and left gluteal area was prepped and draped in a sterile fashion using iodine x3 Ioban was placed. The C-arm was brought in position for AP view at the L2-3 vertebral bodies under direct visualization fluoroscopy on a true AP view the L1?2 interlaminar space was identified skin and subcutaneous tissue and size approximately 10 cc of a mix of 2% lidocaine and 0.25% Marcaine using a 25-gauge regular needle followed by a 25-gauge 3-1/2 inch spinal needle towards the interlaminar space at L2-3, the skin and subcutaneous tissue were then anesthetized and using an 11-gauge blade was then taken down to the skin and subcutaneous tissue using a 14-gauge 3-1/2 inch Touhy needle provided by the [email or web address] kit the needle was passed through the skin towards the interlaminar space at L1?2 and a paramedian approach the needle was then advanced under direct visualization fluoroscopy towards the interlaminar space at L1-2 [id number] technique was then carried to air towards the interlaminar space at L1-2 once the tip of the needle was in the epidural space and loss of resistance was encountered to air and after confirmation of AP as well as oblique view of the spinal cord stimulator lead was then advanced under direct visualization fluoroscopy to be at the tip of the lead at T8 and the bottom of the lead around mid T10 after confirmation of AP as well as lateral view to confirm correct placement of the lead in the posterior compartment of the epidural space the previous procedure was then repeated to a level above at L1-2 to the right paramedian approach interlaminar space the second lead was then inserted under direct visualization with fluoroscopy to be at the mid T8 and mid T10 area, the leads were were then connected to the external neurostimulator and patient was then awakened to confirm satisfactory coverage of the painful area once satisfactory coverage was then achieved the stylette of each lead as well as the needles were then removed and the skin and subcutaneous tissue on to the left of the paramedian needles was then taken anesthetized with a total of 10 cc of the previous mixture of 0.25% Marcaine and 2% lidocaine using a 25-gauge regular needle the incision was then taken down through the skin and subcutaneous tissue towards the fascia making sure hemostasis was then maintained via cautery, the spinal cord stimulator leads were then passed through the above incision and secured using the biwing and sutured down with a 2-0 silk to the fascia at that level the spinal cord stimulator leads were then tunneled via a tunneler provided by the [employer] kit towards the previously incised spinal cord stimulator battery at the left gluteal region skin and subcutaneous tissue were anesthetized with approximately 10 cc of a mix of 2% lidocaine and 0.25% Marcaine using a 25 gauge regular needle, skin and subcutaneous tissue was then taken down with the 11-gauge blade hemostasis was maintained with Bovie and direct pressure the incision was then taken down to the fascia and the battery was then secured with the 2-0 silk sutures that were the spinal cord stimulator leads the upper lead was then marked the new until spinal cord stimulator battery was then provided Via [email or web address] kit the battery was then reattached of the spinal cord stimulator make ensure that the top lead is attached to the top position from 0-7 electrodes and the bottom from 8-15 electrodes once impedance was then checked to be in the proper average number the intellus battery was then inserted into the pocket and impedance with when checked again the pocket was then inspected to confirm hemostasis in place, the intellus battery was then secured to the fascia using a 2-0 silk to the upper eyes of the battery confirming an upward writing of the intellus facing posterior, once complete confirmation the battery was then placed in the position and the the mid paramedian and the gluteal incisions were then closed primarily through a 3-0 Vicryl in a running fashion followed by a 4-0 Vicryl to the skin, hemostasis was then maintained during the procedure the skin was then covered with a Steri-Strips and bacitracin patient was then returned into the supine position in a stable condition and returned to recovery in a stable condition patient experienced no signs or symptoms of intrathecal or intravascular injection patient experienced no paresthesia the procedure was completed without any apparent difficulty any complication the patient appeared to tolerate well, motor as well as sensory function was unchanged from prior to the procedure ESTIMATED BLOOD LOSS: Minimal less than 25 mL ASSESSMENT AND PLAN: This is a 75-year-old female with lumbosacral radiculopathy lumbosacral degenerative disc disease lumbosacral spinal stenosis, postlaminectomy syndrome of the lumbar spine status post 1. Spinal cord stimulator thoracolumbar leads placement x2 #2 spinal cord stimulator Medtronic intellus generator placement #3 spinal cord stimulator generator pocket creation at the left gluteal region #4 spinal cord stimulator simple programming, 5-intraoperative fluoroscopic interpretation patient will continue her current medications a prescription was provided to the patient Keflex 500 mg 1 p.o. every 8 hours for 7 days, [place] 5-325 mg 1 p.o. every 4 hours as needed acute postoperative pain #20, postop instruction were given in writing to the patient and her as well as verbally and in writing, patient will follow approximately 1 week for reevaluation
== END 2021-03-16 14:03 | disposition home or self-care (01) ==
LOC: SDC 08:14 → AC 08:31
PROVIDERS: PCP Family Medicine; Visit Provider Anesthesiology Pain Medicine
PROC: (CPT 63685; principal; 2021-03-16 09:45)
DX: M51.17 Intervertebral disc disorders with radiculopathy, lumbosacral region (principal); M48.07 Spinal stenosis, lumbosacral region; M96.1 Postlaminectomy syndrome, not elsewhere classified; M47.27 Other spondylosis with radiculopathy, lumbosacral region; F41.9 Anxiety disorder, unspecified; I10 Essential (primary) hypertension; E11.621 Type 2 diabetes mellitus with foot ulcer; G47.33 Obstructive sleep apnea (adult) (pediatric); F32.9 Major depressive disorder, single episode, unspecified; J45.909 Unspecified asthma, uncomplicated; E66.9 Obesity, unspecified; F17.200 Nicotine dependence, unspecified, uncomplicated; Z68.38 Body mass index [BMI] 38.0-38.9, adult; Z79.84 Long term (current) use of oral hypoglycemic drugs; Z79.899 Other long term (current) drug therapy
CPT/HCPCS: 01936; 63650 ×2; 63685; 95971; 72100; 76000; 82962; C1778; C1820; J7120; J2405

== ENCOUNTER → 2021-05-23 08:34 | Outpatient (CLI) | payer MEDICARE, SELFPAY ==
[2020-04-24 16:16] VITALS: BMI 37.7
--- NOTE | 2021-05-23 08:36 | CT_ITS ---
STUDY: CT CHEST WITHOUT CONTRAST- LOW DOSE SCREENING PROTOCOL REASON FOR EXAM: Female, 76 years old. Current smoker. 65 pack per year history. No current symptoms of lung cancer or pulmonary infection. Shared decision-making with referring PCP documented in patient''s record. RADIATION DOSAGE (If Supplied By Facility): CTDIvol = ( 4.02 ) mGy, DLP = ( 124.36 ) mGycm TECHNIQUE: Low dose screening CT examination performed from the base of the neck to the upper abdomen. Sagittal and coronal reformatted images performed. Sagittal and coronal MIP images provided. The measurements provided are average, rounded measurements per ACR guidelines. COMPARISON: 05/23/2020 FINDINGS: Mild emphysematous changes. Mild bilateral apical scarring. Linear scar in the lingula left lung. No noncalcified nodule or mass. There is no demonstrated pleural abnormality. Normal heart and pericardium. There are calcifications of the coronary arteries. Normal mediastinum. Normal hilar regions. Normal unenhanced pulmonary arteries. Normal aorta arch and descending thoracic aorta. Normal osseous structures. Dorsal column spinal stimulator in the thoracic spine. There is no demonstrated abnormality of the visualized upper abdomen. CT/Low Dose CT Lung Screening IMPRESSION: 1. No significant indeterminate incidental findings requiring additional imaging. 2. Incidental findings include mild emphysema. ASSESSMENT CATEGORY: LungRADS 1 - Negative. Continue annual screening with LDCT in 12 months, per established ACR guidelines. Electronically Signed: Armaan Gallagher MD at 11:43 EDT Tel , Service support ,
== END ==
PROVIDERS: PCP Family Medicine; Referring Provider Internal Medicine Pulmonary Disease; Visit Provider Internal Medicine Pulmonary Disease
DX: Z87.891 Personal history of nicotine dependence (principal); Z12.2 Encounter for screening for malignant neoplasm of respiratory organs
CPT/HCPCS: 71271

== ENCOUNTER → 2021-06-23 10:54 | Outpatient (CLI) | payer MEDICARE, SELFPAY ==
[2021-06-23 12:19] LABS: Absolute Lymphocyte Count 2.05 X10^3/uL (0.83-4.51); Absolute Neutrophil Count 5.1 X10^3/uL (2.0-7.7); Basophil# 0.07 X10^3/uL; Basophil% 0.9 % (0-1); Eosinophil# 0.27 X10^3/uL; Eosinophils% 3.3 % (0-5); Hematocrit 45.1 % (37-47); Lymphocyte # 2.05 X10^3/ul (0.83-4.51); Mean Corp Hgb Conc 33.3 g/dL (32-36); Mean Corpuscular Hgb 30.9 pg (27.0-32.0); Mean Corpuscular Volume 92.8 fL (81-99); Mean Platelet Vol. 10.2 fl (6.2-12.0); Monocyte# 0.69 X10^3/uL; Monocyte% 8.4 % (0-10); NRBC Flagged by Analyzer 0 % (0-5); Neutrophil # 5.08 X10^3/uL (2.7-7.7); Neutrophil % 61.8 % (47-70); Platelet Count 204 K/mm3 (150-450); RBC Distribution Width CV 12.8 % (11.6-14.6); RBC Distribution Width SD 43.8 fl (35.1-43.9); Red Blood Count 4.86 M/mm3 (4.2-5.4); White Blood Count 8.2 K/mm3 (4.4-11.0)
[2021-06-23 12:44] LABS: Hemoglobin A1c 6.2 % (3.8-5.6)
[2021-06-23 12:46] LABS: Microalbumin:Creatinine Ratio 11.4 mg/g CRE (<30 mg/g CRE)
[2021-06-23 12:50] LABS: ALB/GLOB Ratio 0.8 RATIO (0.9-2.4); AST(SGOT) 62 U/L (15-37); Alanine Aminotransfer ALT/SGPT 67 U/L (13-56); Albumin, Serum 3.2 g/dL (3.2-5.0); Alkaline Phosphatase 78 U/L (45-117); Anion Gap 4 (5-15); BUN 20 mg/dL (7-18); BUN/Creat Ratio 26.2 RATIO (10-20); Calcium,Total 9.4 mg/dL (8.5-10.1); Chloride 108 mmol/L (98-107); Cholesterol 215 mg/dL (200); Creatinine, Serum 0.76 mg/dL (0.55-1.02); EST Glomerular Filtration Rate 79 mL/min (>60); Est Glom Filt Rate - Afr Amer 95 mL/min (>60); Globulin 4.1 g/dL (2.2-4.2); Glucose 117 mg/dL (74-106); High Density Lipoprotein 61 mg/dL; Potassium 4.3 mmol/L (3.5-5.1); Protein, Total 7.3 g/dL (6.4-8.2); Sodium Level 140 mmol/L (136-145); Triglycerides 136 mg/dL; Very Low Density Lipoprotein 27 mg/dL (5-40)
== END ==
PROVIDERS: PCP Family Medicine; Referring Provider Family Medicine; Visit Provider Family Medicine
DX: E55.9 Vitamin D deficiency, unspecified (principal); E11.59 Type 2 diabetes mellitus with other circulatory complications
CPT/HCPCS: 36415; 80053; 80061; 82043; 82306; 82570; 83036; 85025

== ENCOUNTER → 2021-08-04 | Outpatient (CLI) | payer MEDICARE, SELFPAY | END | disposition home or self-care (01) | LOC: LABSPEC 15:30 | PROVIDERS: PCP Family Medicine; Referring Provider Family Medicine; Visit Provider Family Medicine | DX: B34.9 Viral infection, unspecified (principal) | CPT/HCPCS: 87635; U0005; U0003 ==

== ENCOUNTER 2021-09-23 09:05 | Outpatient (CLI) | payer MEDICARE, SELFPAY ==
[2021-09-23 10:27] LABS: Absolute Lymphocyte Count 1.64 X10^3/uL (0.83-4.51); Absolute Neutrophil Count 4.8 X10^3/uL (2.0-7.7); Basophil# 0.05 X10^3/uL; Basophil% 0.7 % (0-1); Eosinophil# 0.22 X10^3/uL; Hematocrit 41.9 % (37-47); Hemoglobin 13.8 g/dL (12.0-15.0); Lymphocyte # 1.64 X10^3/ul (0.83-4.51); Mean Corp Hgb Conc 32.9 g/dL (32-36); Mean Corpuscular Hgb 31.5 pg (27.0-32.0); Mean Corpuscular Volume 95.7 fL (81-99); Mean Platelet Vol. 10.3 fl (6.2-12.0); Monocyte# 0.66 X10^3/uL; Monocyte% 8.9 % (0-10); NRBC Flagged by Analyzer 0 % (0-5); Neutrophil # 4.84 X10^3/uL (2.7-7.7); Neutrophil % 64.9 % (47-70); Platelet Count 195 K/mm3 (150-450); RBC Distribution Width CV 12.5 % (11.6-14.6); RBC Distribution Width SD 44.6 fl (35.1-43.9); Red Blood Count 4.38 M/mm3 (4.2-5.4); White Blood Count 7.5 K/mm3 (4.4-11.0)
[2021-09-23 10:44] LABS: Vitamin D,25 Hydroxy 61.8 ng/mL
[2021-09-23 10:45] LABS: ALB/GLOB Ratio 0.8 RATIO (0.9-2.4); AST(SGOT) 39 U/L (15-37); Alanine Aminotransfer ALT/SGPT 44 U/L (13-56); Albumin, Serum 3.1 g/dL (3.2-5.0); Alkaline Phosphatase 77 U/L (45-117); Anion Gap 5 (5-15); BUN 17 mg/dL (7-18); BUN/Creat Ratio 22.2 RATIO (10-20); Calcium,Total 9.4 mg/dL (8.5-10.1); Chloride 110 mmol/L (98-107); Cholesterol 132 mg/dL (200); Creatinine, Serum 0.77 mg/dL (0.55-1.02); EST Glomerular Filtration Rate 78 mL/min (>60); Est Glom Filt Rate - Afr Amer 95 mL/min (>60); Globulin 3.9 g/dL (2.2-4.2); Glucose 139 mg/dL (74-106); High Density Lipoprotein 60 mg/dL; Sodium Level 141 mmol/L (136-145); Triglycerides 78 mg/dL; Very Low Density Lipoprotein 16 mg/dL (5-40)
[2021-09-23 11:16] LABS: Microalbumin,Random Urine 32.9 mg/L (NO RANGE EST.); Microalbumin:Creatinine Ratio 22.5 mg/g CRE (<30 mg/g CRE)
[2021-09-23 16:11] LABS: Hemoglobin A1c 6.3 % (3.8-5.6)
== END 2021-09-23 23:59 | disposition home or self-care (01) ==
LOC: MFPLAB 09:06
PROVIDERS: PCP Family Medicine; Referring Provider Family Medicine; Visit Provider Family Medicine
DX: E11.9 Type 2 diabetes mellitus without complications (principal); E55.9 Vitamin D deficiency, unspecified
CPT/HCPCS: 36415; 80053; 80061; 82043; 82306; 82570; 83036; 85025

== ENCOUNTER → 2022-01-15 | Outpatient (CLI) | payer MEDICARE, SELFPAY ==
[2022-01-15 10:10] LABS: Color, Urine Yellow (Yellow); Glucose, Dipstick Normal (Normal); Ketone-Dipstick Negative (Negative); Leukocyte Esterase-Dipstick 25 /ul (Negative); Nitrite-Dipstick Negative (Negative); Occult Blood-Urine 25 /ul (Negative); Protein-Dipstick 15 mg/dl (Negative); Specific Gravity, Urine 1.025 (1.002-1.030); Urine Bilirubin Dipstick Negative (Negative); Urine Clarity Clear (Clear); Urine Urobilinogen Normal (Normal)
[2022-01-15 10:23] LABS: Bacteria RARE /hpf (None Seen); Mucous, Urine 1+ /hpf (<or=2+); Red Blood Cells-Urine 0-5 SEEN /hpf (0-5); Squamous Epithelial Cells - UA 0-5 SEEN /hpf (5-10); White Blood Cells 0-5 SEEN /hpf (0-5)
[2022-01-15 10:26] LABS: Vitamin D,25 Hydroxy 58.3 ng/mL
[2022-01-15 10:33] LABS: Hemoglobin A1c 6.2 % (3.8-5.6)
[2022-01-15 10:55] LABS: ALB/GLOB Ratio 0.9 RATIO (0.9-2.4); AST(SGOT) 30 U/L (15-37); Alanine Aminotransfer ALT/SGPT 35 U/L (13-56); Albumin, Serum 3.2 g/dL (3.2-5.0); Alkaline Phosphatase 66 U/L (45-117); Anion Gap 4 (5-15); BUN 18 mg/dL (7-18); BUN/Creat Ratio 24.6 RATIO (10-20); Calcium,Total 9.4 mg/dL (8.5-10.1); Chloride 111 mmol/L (98-107); Cholesterol 146 mg/dL (200); Creatinine, Serum 0.73 mg/dL (0.55-1.02); EST Glomerular Filtration Rate 83 mL/min (>60); Est Glom Filt Rate - Afr Amer 100 mL/min (>60); Globulin 3.6 g/dL (2.2-4.2); Glucose 113 mg/dL (74-106); High Density Lipoprotein 68 mg/dL; Potassium 4.3 mmol/L (3.5-5.1); Protein, Total 6.8 g/dL (6.4-8.2); Sodium Level 141 mmol/L (136-145); Triglycerides 83 mg/dL; Very Low Density Lipoprotein 17 mg/dL (5-40)
[2022-01-15 11:05] LABS: Microalbumin,Random Urine 34.4 mg/L (NO RANGE EST.); Microalbumin:Creatinine Ratio 15.7 mg/g CRE (<30 mg/g CRE)
== END | disposition home or self-care (01) ==
LOC: MFPLAB 08:25
PROVIDERS: PCP Family Medicine; Visit Provider Family Medicine
DX: E11.9 Type 2 diabetes mellitus without complications (principal); E55.9 Vitamin D deficiency, unspecified; Z87.891 Personal history of nicotine dependence
CPT/HCPCS: 36415; 80053; 80061; 81001; 82043; 82306; 82570; 83036

== ENCOUNTER → 2022-06-04 | Outpatient (CLI) | payer MEDICARE, SELFPAY ==
--- NOTE | 2022-06-04 08:39 | CT_ITS ---
STUDY: LOW DOSE CT LUNG CANCER SCREENING REASON FOR EXAM: Female, 77 years old. SMOKER- 1PPD X 62 YEARS, COPD RADIATION DOSAGE (If Supplied By Facility): CTDIvol = ( 4.02 ) mGy, DLP = ( 141.45 ) mGycm TECHNIQUE: No contrast was administered. Low dose technique was utilized (average mAS-38 and kVp 120). 1.25 mm axial source images with a slice interval of 1.25-mm were reconstructed in lung windows. 2.5 mm axial source images with a slice interval of 2.5-mm were reconstructed in lung windows. 5.0 mm axial source images with a slice interval of 5.0-mm were reconstructed in soft tissue windows. COMPARISON: 05/23/2021 FINDINGS: Lung windows show the lungs to be normally expanded. Chronic interstitial changes noted in both lung reyes without organized infiltrate, suspicious noncalcified mass or nodule. Stable fibrotic scarring in the lung bases. Soft tissue windows show normal-appearing thyroid gland. No suspicious axillary, mediastinal, or perihilar adenopathy. No pleural or pericardial effusions. No thoracic aortic aneurysm. Calcified coronary vessels noted. Bony structures show degenerative change. Limited cuts through the upper abdomen do not show suspicious abnormality CT/Low Dose CT Lung Screening IMPRESSION: Lung-RADS category 2 - Continue annual screening with LDCT in 12 months. IMPORTANT NOTES FOR USE: ACR Lung-RADS Version 1.1 Assessment Categories Release Date: 2018 Category: Coded 0-4 bases on nodule(s) with highest degree of suspicion. Negative screen is defined as categories 1 and 2; a positive screen is defined as categories 3 and 4. Category 3 and 4A nodules that are unchanged on interval CT should be coded as category 2, and individuals returned to screening in 12 months. Category 4X: Category 3 or 4 nodules with additional imaging findings that increase the suspicion of lung cancer, such as spiculation, GGN that doubles in size in 1 year, enlarged lymph notes, etc. Category Modifiers: S (significant finding unrelated to lung cancer) Electronically Signed: Michael Belle MD at 10:27 EDT ,
== END | disposition home or self-care (01) ==
LOC: CT 08:38
PROVIDERS: PCP Family Medicine; Referring Provider Internal Medicine Pulmonary Disease; Visit Provider Internal Medicine Pulmonary Disease
DX: Z87.891 Personal history of nicotine dependence (principal)
CPT/HCPCS: 71271

== ENCOUNTER → 2022-08-17 | Outpatient (CLI) | payer MEDICARE, SELFPAY ==
[2022-08-17 09:45] LABS: Absolute Lymphocyte Count 1.83 X10^3/uL (0.83-4.51); Absolute Neutrophil Count 5.1 X10^3/uL (2.0-7.7); Basophil# 0.04 X10^3/uL; Basophil% 0.5 % (0-1); Eosinophil# 0.25 X10^3/uL; Eosinophils% 3.2 % (0-5); Lymphocyte # 1.83 X10^3/ul (0.83-4.51); Lymphocyte % 23.3 % (19-41); Mean Corp Hgb Conc 32.6 g/dL (32-36); Mean Corpuscular Hgb 30.6 pg (27.0-32.0); Mean Corpuscular Volume 94.1 fL (81-99); Mean Platelet Vol. 10.4 fl (6.2-12.0); Monocyte# 0.64 X10^3/uL; Monocyte% 8.1 % (0-10); NRBC Flagged by Analyzer 0 % (0-5); Neutrophil # 5.06 X10^3/uL (2.7-7.7); Neutrophil % 64.3 % (47-70); Platelet Count 192 K/mm3 (150-450); RBC Distribution Width CV 12.9 % (11.6-14.6); RBC Distribution Width SD 44.5 fl (35.1-43.9); Red Blood Count 4.57 M/mm3 (4.2-5.4); White Blood Count 7.9 K/mm3 (4.4-11.0)
[2022-08-17 10:05] LABS: Hemoglobin A1c 6.6 % (3.8-5.6)
[2022-08-17 10:24] LABS: Microalbumin:Creatinine Ratio 24.1 mg/g CRE (<30 mg/g CRE); Vitamin D,25 Hydroxy 51.9 ng/mL
[2022-08-17 10:47] LABS: ALB/GLOB Ratio 1.1 RATIO (0.9-2.4); AST(SGOT) 31 U/L (15-37); Alanine Aminotransfer ALT/SGPT 29 U/L (13-56); Albumin, Serum 3.4 g/dL (3.2-5.0); Alkaline Phosphatase 66 U/L (45-117); Anion Gap 6 (5-15); BUN 20 mg/dL (7-18); BUN/Creat Ratio 28.5 RATIO (10-20); Calcium,Total 9.4 mg/dL (8.5-10.1); Chloride 106 mmol/L (98-107); Cholesterol 146 mg/dL (200); EST Glomerular Filtration Rate 87 mL/min (>60); Est Glom Filt Rate - Afr Amer 105 mL/min (>60); Glucose 161 mg/dL (74-106); High Density Lipoprotein 55 mg/dL; Potassium 4.1 mmol/L (3.5-5.1); Protein, Total 6.4 g/dL (6.4-8.2); Sodium Level 140 mmol/L (136-145); Thyroid Stim Hormone (TSH) 3.05 uIU/mL (0.358-3.74); Triglycerides 120 mg/dL; Very Low Density Lipoprotein 24 mg/dL (5-40)
== END | disposition home or self-care (01) ==
LOC: MFPLAB 09:02
PROVIDERS: PCP Family Medicine; Referring Provider Family Medicine; Visit Provider Family Medicine
DX: E11.9 Type 2 diabetes mellitus without complications (principal); E55.9 Vitamin D deficiency, unspecified
CPT/HCPCS: 36415; 80053; 80061; 82043; 82306; 82570; 83036; 84443; 85025

== ENCOUNTER 2022-08-26 17:10 | Emergency (ER) | payer MEDICARE, SELFPAY ==
[2022-08-26 17:12] VITALS: BP 171/102; PULSE 73; RESP 16; TEMP 36; O2SAT 95; BMI 36.5
--- NOTE | 2022-08-26 18:08 | CT_ITS ---
INDICATION: epigastric pain EXAMINATION: CT ABDOMEN AND PELVIS WITH CONTRAST - CT Abdomen And Pelvis W/ Contrast Injection TECHNIQUE: Helically acquired images were obtained of the abdomen and pelvis following IV contrast. A radiation dose optimization technique was used for this scan. IV Contrast dosage and agent: Oral contrast: None. COMPARISON: None. FINDINGS: LOWER CHEST: Lung bases are clear. No cardiomegaly or pericardial effusion. LIVER: Liver is enlarged and fatty infiltrated.. No focal mass. GALLBLADDER AND BILIARY TREE: Gallbladder has been removed surgically.. No intra- or extrahepatic biliary ductal dilation. PANCREAS: No focal cystic or solid mass. SPLEEN: Normal size. There is a small cyst.. ADRENAL GLANDS: Right adrenal is normal. There is a small left adrenal nodule measuring 1.4 x 1.24 cm of indeterminate etiology may be better assessed with MRI if clinically indicated KIDNEYS AND URETERS: Normal renal size and position. No hydronephrosis. There are 2 cysts in the right kidney and a one in the left which will not require additional imaging. PERITONEUM: No ascites or free air. No other fluid collection. BOWEL: No evidence of acute appendicitis. The stomach is collapsed and cannot be adequately evaluated. There is concentric thickening of the joel of the transverse portion of the duodenum and proximal jejunum consistent with nonspecific enteritis. No evidence for small bowel obstruction. Diverticular disease in the distal descending and sigmoid colon without evidence for acute diverticulitis. LYMPH NODES: No enlarged mesenteric or retroperitoneal lymph nodes. VESSELS: Mild atherosclerotic changes of the aorta without evidence for aneurysm. URINARY BLADDER: Incompletely distended thick walled bladder likely of no significance. REPRODUCTIVE ORGANS: No pelvic masses. ABDOMINAL WALL: No discrete abdominal or pelvic wall hernia. BONES: Lumbar spine demonstrates degenerative change and multilevel postsurgical changes.] Prosthesis is noted. No lytic or blastic abnormality. CT/Abdomen/Pelvis W IV Cont ONLY IMPRESSION: Findings consistent with nonspecific enteritis. No definitive evidence for acute pancreatitis Nonspecific fatty infiltration of the liver. Status post cholecystectomy. Diverticular disease of the descending and sigmoid colon without evidence for acute diverticulitis. Other findings as above Electronically Signed: Tariq Moss MD at 19:03 EST ,
--- NOTE | 2022-08-26 18:11 | EX.ED.DYSGE1 ---
HPI History of Present Illness Chief Complaint: Abn Labs Detail of Chief Complaint: abd pain Informant: patient Onset/Context/Timing Onset: Weeks (1.5) Context: Gradual Onset Timing: Intermittent Quality: aching Location: epigastrium, radiating into mid-back Current Severity: Moderate Maximum Severity: Moderate Worsened by: nothing; food does not make it worse/better Relieved by: nothing Associated Symptoms Associated Symptoms: none Narrative Narrative: Patient's been having upper abdominal/epigastric pain for the past week and a half, she saw her PCP as an outpatient today and had some labs and was told to come to the ER when the lipase was elevated in the 600 range. The rest of her labs were all normal, I reviewed them today, outpatient including liver enzymes and bilirubin and white blood count which is 7.9. She does not drink any alcohol. She has had past cholecystectomy, was remote. No history of pancreatitis that she knows of. [facility] Medical History Ambulates with cane Anxiety and depression Arthritis Asthma Atrial fibrillation Back pain Cancer Cardiology follow-up encounter CPAP (continuous positive airway pressure) dependence DDD (degenerative disc disease) Depression Diabetes Dietary restriction Essential (primary) hypertension History of diverticulitis History of stress test Hx of fracture of ankle Nicotine dependence Obesity Obstructive sleep apnea On home oxygen therapy Smoker Type 2 diabetes mellitus Wears glasses Wears hearing aid Home Medications acetaminophen 500 mg tablet 500 - 1,000 mg PO Q6H PRN PRN Pain Or Fever 03/31/20 [History Last Taken 04/23/20] aspirin 81 mg tablet,delayed release 81 mg PO QHS 03/31/20 [History Last Taken 04/19/20] atenolol 50 mg tablet 50 mg PO BID 03/31/20 [History Last Taken 03/16/21] calcium carbonate 600 mg calcium (1,500 mg) tablet 600 mg PO BID 03/31/20 [History Last Taken 04/23/20] cholecalciferol (vitamin D3) 50 mcg (2,000 unit) capsule 2,000 unit PO DAILY 03/31/20 [History Last Taken 04/23/20] escitalopram oxalate 5 mg tablet 5 mg PO QHS 03/31/20 [History Last Taken 04/23/20] ibuprofen 600 mg tablet 600 mg PO PRN PRN Pain Or Fever 03/31/20 [History Last Taken 04/23/20] lutein 6 mg capsule 6 mg PO DAILY 03/31/20 [History Last Taken 04/23/20] metformin 500 mg tablet,extended release 24 hr 500 mg PO DAILY 03/31/20 [History Last Taken 04/23/20] trazodone 50 mg tablet 100 mg PO QHS 03/31/20 [History Last Taken 04/23/20] valsartan 160 mg tablet 160 mg PO QHS 03/31/20 [History Last Taken 04/23/20] gabapentin 300 mg capsule 300 mg PO TID 04/15/20 [History Last Taken 03/16/21] dicyclomine 10 mg capsule 20 mg PO Q6H PRN PRN abdominal discomfort #20 CAPSULES 08/26/22 [Rx Last Taken Unknown] Allergy/AdvReac Type Severity Reaction Status Date / Time hydrocodone [From Vicodin] Allergy Itching Verified 08/26/22 17:12 oxycodone [From Percocet] Allergy Itching Verified 08/26/22 17:12 Penicillins Allergy Hives Verified 08/26/22 17:12 Family History Mother CVA (cerebral vascular accident) Surgical History History of carpal tunnel release History of cataract surgery History of cholecystectomy History of knee replacement History of left heart catheterization (04/10/20) History of lumbar fusion History of open reduction and internal fixation (ORIF) procedure History of total hip arthroplasty Social History Smoking Status: Current every day smoker tobacco type: cigarettes Tobacco: How many years used: 59 ROS ROS ED Constitutional Constitutional ED: Denies chills or fever(s) Eyes Eyes: Denies change in vision or diplopia ENT ENT ED: Denies rhinorrhea or sore throat Cardiovascular Cardiovascular: Denies chest pain or palpitations Respiratory/Chest Respiratory/Chest: Denies cough or dyspnea Gastrointestinal Gastrointestinal: Reports abdominal pain; Denies diarrhea, nausea or vomiting Genitourinary Genitourinary ED: Denies dysuria or hematuria Musculoskeletal Musculoskeletal: Reports back pain; Denies neck pain Integumentary Denies abscess or rash Neurologic Neurologic: Denies headache(s), paresthesias or weakness Psychiatric Psychiatric: Denies anxiety or suicidal thoughts EXAM Physical Exam Const Vital Signs: 08/26/22 17:12 08/26/22 17:30 08/26/22 20:12 Temperature 96.8 F L Temperature Source Temporal Pulse Rate 73 67 Respiratory Rate 16 15 Respiratory Pattern Normal Blood Pressure 171/102 H 177/68 H Blood Pressure Mean 125 104 Pulse Ox 95 95 Oxygen Delivery Method Room Air Room Air Positive well nourished, well developed and obese General Appearance ED: well developed and NAD Nutritional Appearance: obese HEENT Reports moist mucous membranes normocephalic and atraumatic Eyes PERRL and EOMs intact bilaterally Neck full ROM and supple Resp normal respiratory effort and clear to auscultation bilaterally Cardio regular rate, regular rhythm and no murmurs GI non-distended GI Narrative: Tender epigastrium, no guarding or rebound, no pulsatile mass, no other areas of tenderness. Auscultation: normoactive bowel sounds Palpation: soft Back/Spine no CVA tenderness General Back: other FROM Extremity normal to inspection General Extremety ED: Negative for edema, pulses abnormal or tenderness General Extremity: Negative for edema or pulses abnormal Neuro oriented x3, CN's II-XII intact bilaterally and no sensory deficits noted Sensorium / Orientation: awake and alert Motor Exam: strength 5/5 throughout Skin no rashes or lesions noted and no wounds MDM MDM MDM Narrative Medical decision making narrative: Performed CT of the abdomen/pelvis. My interpretation of the CT agrees with that of the radiologist. Does not show any radiographic signs of acute pancreatitis. Furthermore, her lipase is elevated but not high enough to be consistent with acute pancreatitis. See no other acute abnormalities on the CT or signs of inflammation, and having symptoms that are controlled, I think discharging her with a clear liquid diet for at least the next 48 hours and close a patient follow-up for repeat of labs and reevaluation would be reasonable. Discussed with the patient she is comfortable with that plan. Radiography Diagnostic Testing: Clinical Impression(s) from Imaging Studies Abdomen/Pelvis CT 08/26/22 18:08 IMPRESSION: Findings consistent with nonspecific enteritis. No definitive evidence for acute pancreatitis Nonspecific fatty infiltration of the liver. Status post cholecystectomy. Diverticular disease of the descending and sigmoid colon without evidence for acute diverticulitis. Other findings as above Electronically Signed: Tariq Moss MD at 19:03 EST , Discharge Plan Triage Chief Complaint: Abn Labs ED Provider: Kashmir Dasilva Dx/Rx/DC Orders Clinical Impression: Acute epigastric pain, Elevated lipase Instructions: ED Clear Liquid Diet, ED Epigastric Pain Uncertain Cause Prescriptions: New dicyclomine 10 mg capsule 20 mg PO Q6H PRN PRN (Reason: abdominal discomfort) Qty: 20 0RF No Action trazodone 50 MG tablet 100 mg PO QHS aspirin 81 MG tablet,delayed release (DR/EC) 81 mg PO QHS acetaminophen 500 MG tablet 500 - 1,000 mg PO Q6H PRN PRN (Reason: Pain Or Fever) calcium carbonate 600 MG tablet 600 mg PO BID lutein 6 MG capsule 6 mg PO DAILY ibuprofen 600 MG tablet 600 mg PO PRN PRN (Reason: Pain Or Fever) metformin 500 MG tablet extended release 24 hr 500 mg PO DAILY atenolol 50 MG tablet 50 mg PO BID valsartan 160 MG tablet 160 mg PO QHS escitalopram oxalate 5 MG tablet 5 mg PO QHS cholecalciferol (vitamin D3) 2,000 UNIT capsule 2,000 unit PO DAILY gabapentin 300 MG capsule 300 mg PO TID Primary Care Provider: Nicholas Alonso Referrals: Nicholas Alonso MD [Primary Care Provider] - 3-5 Days Disposition Disposition: Home, Self Care
[2022-08-26] MEDS: 0.9% Normal Saline 1,000 ML 200 ML IV (18:31)
[2022-08-26] MEDS: Ondansetron 4 MG/2 ML Vial IV (18:31)
[2022-08-26] MEDS: Morphine 4 MG/ML Syringe IV (18:32)
[2022-08-26 20:12] VITALS: BP 177/68; PULSE 67; RESP 15; O2SAT 95
== END 2022-08-26 20:58 | disposition home or self-care (01) ==
PROVIDERS: Emergency Provider Emergency Medicine; PCP Family Medicine; Visit Provider Emergency Medicine
DX: R10.13 Epigastric pain (principal); E11.9 Type 2 diabetes mellitus without complications; I10 Essential (primary) hypertension; R74.8 Abnormal levels of other serum enzymes; F17.210 Nicotine dependence, cigarettes, uncomplicated; J45.909 Unspecified asthma, uncomplicated; E66.9 Obesity, unspecified
CPT/HCPCS: 36415; 74177; 80053; 83690; 85025; 96361; 96374; 96375; 99282; J7030; Q9967; J2405

== ENCOUNTER → 2022-08-26 | Outpatient (CLI) | payer MEDICARE, SELFPAY ==
[2022-08-26 10:03] LABS: Absolute Lymphocyte Count 1.73 X10^3/uL (0.83-4.51); Absolute Neutrophil Count 5.3 X10^3/uL (2.0-7.7); Basophil# 0.04 X10^3/uL; Basophil% 0.5 % (0-1); Eosinophil# 0.19 X10^3/uL; Eosinophils% 2.4 % (0-5); Hemoglobin 14.2 g/dL (12.0-15.0); Lymphocyte # 1.73 X10^3/ul (0.83-4.51); Lymphocyte % 21.9 % (19-41); Mean Corp Hgb Conc 32.3 g/dL (32-36); Mean Platelet Vol. 10.5 fl (6.2-12.0); Monocyte# 0.55 X10^3/uL; NRBC Flagged by Analyzer 0 % (0-5); Neutrophil # 5.32 X10^3/uL (2.7-7.7); Neutrophil % 67.4 % (47-70); Platelet Count 194 K/mm3 (150-450); RBC Distribution Width SD 44.6 fl (35.1-43.9); Red Blood Count 4.73 M/mm3 (4.2-5.4); White Blood Count 7.9 K/mm3 (4.4-11.0)
[2022-08-26 10:29] LABS: AST(SGOT) 21 U/L (15-37); Alanine Aminotransfer ALT/SGPT 25 U/L (13-56); Albumin, Serum 3.3 g/dL (3.2-5.0); Alkaline Phosphatase 72 U/L (45-117); Anion Gap 7 (5-15); BUN 20 mg/dL (7-18); BUN/Creat Ratio 28.4 RATIO (10-20); Calcium,Total 9.6 mg/dL (8.5-10.1); Chloride 107 mmol/L (98-107); EST Glomerular Filtration Rate 86 mL/min (>60); Est Glom Filt Rate - Afr Amer 104 mL/min (>60); Globulin 3.3 g/dL (2.2-4.2); Glucose 248 mg/dL (74-106); Lipase 632 U/L (73-393); Potassium 4.2 mmol/L (3.5-5.1); Protein, Total 6.6 g/dL (6.4-8.2); Sodium Level 139 mmol/L (136-145)
== END | disposition home or self-care (01) ==
LOC: MFPLAB 08:46
PROVIDERS: PCP Family Medicine; Visit Provider Nurse Practitioner Family
DX: R10.9 Unspecified abdominal pain (principal)
CPT/HCPCS: 36415; 80053; 83690; 85025

== ENCOUNTER → 2022-09-02 | Outpatient (CLI) | payer MEDICARE, SELFPAY ==
--- NOTE | 2022-09-02 10:43 | RAD_ITS ---
STUDY: X-RAY CHEST REASON FOR EXAM: Female, 77 years old. BRONCHITIS TECHNIQUE: XR Chest 2 Views COMPARISON: 8.3.20 FINDINGS: There is atherosclerotic calcification of the aortic arch with tortuosity. There are diffuse degenerative changes of the visualized thoracic spine. There is degenerative osteoarthritis of the bilateral shoulders. Metallic leads in the spinal canal may suggest spinal stimulator leads. Normal size heart. Normal mediastinum and jose. Normal visualized pulmonary arteries. There is no demonstrated abnormality of the visualized soft tissue structures of the upper abdomen. RAD/Chest PA and Lateral IMPRESSION: There are no acute findings. Electronically Signed: Kennedy Ma MD at 17:19 EST ,
[2022-09-02 12:56] LABS: AST(SGOT) 41 U/L (15-37); Alanine Aminotransfer ALT/SGPT 32 U/L (13-56); Albumin, Serum 3.4 g/dL (3.2-5.0); Alkaline Phosphatase 76 U/L (45-117); Anion Gap 7 (5-15); BUN 18 mg/dL (7-18); BUN/Creat Ratio 25.7 RATIO (10-20); Calcium,Total 9.5 mg/dL (8.5-10.1); Chloride 107 mmol/L (98-107); EST Glomerular Filtration Rate 87 mL/min (>60); Est Glom Filt Rate - Afr Amer 105 mL/min (>60); Globulin 3.4 g/dL (2.2-4.2); Glucose 163 mg/dL (74-106); Lipase 258 U/L (73-393); Protein, Total 6.8 g/dL (6.4-8.2); Sodium Level 141 mmol/L (136-145)
== END | disposition home or self-care (01) ==
PROVIDERS: PCP Family Medicine; Referring Provider Family Medicine; Visit Provider Family Medicine
DX: J20.9 Acute bronchitis, unspecified (principal); R74.8 Abnormal levels of other serum enzymes
CPT/HCPCS: 36415; 71046; 80053; 83690

== ENCOUNTER → 2022-10-11 | Outpatient (CLI) | payer MEDICARE, SELFPAY ==
--- NOTE | 2022-10-11 07:13 | US_ITS ---
STUDY: ABDOMINAL ULTRASOUND - RIGHT UPPER QUADRANT REASON FOR VISIT: Female, 77 years old HEPATOMEGALY -- nausea x 1.5 months TECHNIQUE: Ultrasound evaluation of the right upper quadrant was performed with real-time and static cope-scale imaging. TECHNICAL QUALITY: Adequate. COMPARISON: Comparison is made with prior CT scan of the abdomen and pelvis dated 08/26/2022. FINDINGS: Liver: The liver is enlarged and measures 18.1 cm. There is increased echogenicity consistent with fatty infiltration. The bile ducts are within normal limits. There is hepatic color flow. The direction of portal flow is hepatopetal. There is no demonstrated mass lesion. Gallbladder: The patient is status post cholecystectomy. Common Bile Duct (C.B.D.): The common bile duct measures 5 mm. Pancreas: Normal size of the head, body and tail of the pancreas. There is normal echogenicity of the pancreas. There is no demonstrated pancreatic mass or cyst. Right Kidney: Normal size of the right kidney. The right kidney measures 11.2 cm x 5.4 cm x 4.8 cm. Normal renal cortex. The right cortex measures 1.5 cm. 2 renal cysts are seen. The larger measures 1.4 cm x 1.4 cm x 1.4 cm. There is no right hydronephrosis. US/Liver IMPRESSION: Mild hepatomegaly and fatty infiltration of the liver. Right renal cysts. Status post cholecystectomy. Electronically Signed: Nato Gates MD at 14:29 EST ,
== END | disposition home or self-care (01) ==
LOC: US 07:11
PROVIDERS: PCP Family Medicine; Referring Provider Family Medicine; Visit Provider Family Medicine
DX: R16.0 Hepatomegaly, not elsewhere classified (principal)
CPT/HCPCS: 76705

== ENCOUNTER → 2022-11-12 | Outpatient (CLI) | payer MEDICARE, SELFPAY ==
[2022-11-12 09:58] LABS: Absolute Lymphocyte Count 1.71 X10^3/uL (0.83-4.51); Absolute Neutrophil Count 3.8 X10^3/uL (2.0-7.7); Basophil# 0.04 X10^3/uL; Basophil% 0.6 % (0-1); Eosinophil# 0.23 X10^3/uL; Eosinophils% 3.6 % (0-5); Hematocrit 48.1 % (37-47); Hemoglobin 15.5 g/dL (12.0-15.0); Lymphocyte # 1.71 X10^3/ul (0.83-4.51); Lymphocyte % 26.9 % (19-41); Mean Corp Hgb Conc 32.2 g/dL (32-36); Mean Corpuscular Hgb 30.9 pg (27.0-32.0); Mean Corpuscular Volume 95.8 fL (81-99); Mean Platelet Vol. 10.9 fl (6.2-12.0); Monocyte# 0.58 X10^3/uL; Monocyte% 9.1 % (0-10); NRBC Flagged by Analyzer 0 % (0-5); Neutrophil # 3.76 X10^3/uL (2.7-7.7); Neutrophil % 59.3 % (47-70); Platelet Count 184 K/mm3 (150-450); RBC Distribution Width CV 13.2 % (11.6-14.6); RBC Distribution Width SD 46.9 fl (35.1-43.9); Red Blood Count 5.02 M/mm3 (4.2-5.4); White Blood Count 6.4 K/mm3 (4.4-11.0)
[2022-11-12 10:26] LABS: AST(SGOT) 31 U/L (15-37); Alanine Aminotransfer ALT/SGPT 32 U/L (13-56); Albumin, Serum 3.5 g/dL (3.2-5.0); Alkaline Phosphatase 68 U/L (45-117); Anion Gap 6 (5-15); BUN 17 mg/dL (7-18); BUN/Creat Ratio 21.6 RATIO (10-20); Calcium,Total 10.1 mg/dL (8.5-10.1); Chloride 108 mmol/L (98-107); Cholesterol 129 mg/dL (200); Creatinine, Serum 0.79 mg/dL (0.55-1.02); EST Glomerular Filtration Rate 76 mL/min (>60); Est Glom Filt Rate - Afr Amer 91 mL/min (>60); Globulin 3.4 g/dL (2.2-4.2); Glucose 130 mg/dL (74-106); Hemoglobin A1c 7.7 % (3.8-5.6); High Density Lipoprotein 46 mg/dL; Magnesium 2.3 mg/dL (1.6-2.6); Potassium 4.3 mmol/L (3.5-5.1); Protein, Total 6.9 g/dL (6.4-8.2); Sodium Level 139 mmol/L (136-145); Thyroid Stim Hormone (TSH) 2.48 uIU/mL (0.358-3.74); Triglycerides 102 mg/dL; Very Low Density Lipoprotein 20 mg/dL (5-40)
[2022-11-12 10:36] LABS: Vitamin D,25 Hydroxy 114.2 ng/mL
== END | disposition home or self-care (01) ==
LOC: MFPLAB 08:22
PROVIDERS: PCP Family Medicine; Referring Provider Family Medicine; Visit Provider Family Medicine
DX: E11.59 Type 2 diabetes mellitus with other circulatory complications (principal); E55.9 Vitamin D deficiency, unspecified
CPT/HCPCS: 36415; 80053; 80061; 82306; 83036; 83735; 84443; 85025

== ENCOUNTER → 2022-12-16 | Outpatient (CLI) | payer MEDICARE, SELFPAY ==
[2022-12-16 12:07] LABS: Absolute Lymphocyte Count 2.52 X10^3/uL (0.83-4.51); Absolute Neutrophil Count 4.3 X10^3/uL (2.0-7.7); Basophil# 0.06 X10^3/uL; Basophil% 0.8 % (0-1); Eosinophil# 0.25 X10^3/uL; Eosinophils% 3.1 % (0-5); Hemoglobin 16.3 g/dL (12.0-15.0); Lymphocyte # 2.52 X10^3/ul (0.83-4.51); Lymphocyte % 31.5 % (19-41); Mean Corp Hgb Conc 32.6 g/dL (32-36); Mean Corpuscular Hgb 30.6 pg (27.0-32.0); Mean Platelet Vol. 11.2 fl (6.2-12.0); Monocyte# 0.78 X10^3/uL; Monocyte% 9.8 % (0-10); NRBC Flagged by Analyzer 0 % (0-5); Neutrophil % 53.7 % (47-70); Platelet Count 167 K/mm3 (150-450); RBC Distribution Width CV 12.8 % (11.6-14.6); RBC Distribution Width SD 44.2 fl (35.1-43.9); Red Blood Count 5.32 M/mm3 (4.2-5.4)
[2022-12-16 12:36] LABS: ALB/GLOB Ratio 0.9 RATIO (0.9-2.4); AST(SGOT) 23 U/L (15-37); Alanine Aminotransfer ALT/SGPT 25 U/L (13-56); Albumin, Serum 3.7 g/dL (3.2-5.0); Alkaline Phosphatase 70 U/L (45-117); Anion Gap 7 (5-15); BUN 17 mg/dL (7-18); BUN/Creat Ratio 22.7 RATIO (10-20); Calcium,Total 10.1 mg/dL (8.5-10.1); Chloride 107 mmol/L (98-107); Creatinine, Serum 0.75 mg/dL (0.55-1.02); EST Glomerular Filtration Rate 80 mL/min (>60); Est Glom Filt Rate - Afr Amer 97 mL/min (>60); Globulin 3.9 g/dL (2.2-4.2); Glucose 109 mg/dL (74-106); Potassium 3.9 mmol/L (3.5-5.1); Protein, Total 7.6 g/dL (6.4-8.2); Sodium Level 142 mmol/L (136-145)
[2022-12-18 17:07] LABS: Hepatitis B Core Ab Total Negative (Negative); QNTFERON TB Mitogen Value > 10.00 IU/mL (.); QNTFERON TB Nil Value 0.03 IU/mL (.); QNTFERON TB1+ Ag Value 0.02 IU/mL (.); QNTFERON TB2+ Ag Value 0.03 IU/mL (.); QNTIFERON TB Positive Criteria Negative (Negative)
== END | disposition home or self-care (01) ==
LOC: MTLAB 10:47
PROVIDERS: PCP Family Medicine; Referring Provider Physician Assistant Medical; Visit Provider Physician Assistant Medical
DX: L40.0 Psoriasis vulgaris (principal); L30.8 Other specified dermatitis; Z79.899 Other long term (current) drug therapy; F17.200 Nicotine dependence, unspecified, uncomplicated
CPT/HCPCS: 36415; 80053; 85025; 86480; 86704

== ENCOUNTER → 2023-03-01 | Outpatient (CLI) | payer MEDICARE, SELFPAY ==
[2023-03-01 10:25] LABS: Absolute Lymphocyte Count 1.95 X10^3/uL (0.83-4.51); Absolute Neutrophil Count 3.6 X10^3/uL (2.0-7.7); Basophil# 0.05 X10^3/uL; Basophil% 0.8 % (0-1); Eosinophil# 0.22 X10^3/uL; Eosinophils% 3.4 % (0-5); Hematocrit 45.2 % (37-47); Hemoglobin 14.8 g/dL (12.0-15.0); Lymphocyte # 1.95 X10^3/ul (0.83-4.51); Lymphocyte % 30.6 % (19-41); Mean Corp Hgb Conc 32.7 g/dL (32-36); Mean Corpuscular Hgb 31.8 pg (27.0-32.0); Mean Corpuscular Volume 97.2 fL (81-99); Mean Platelet Vol. 10.2 fl (6.2-12.0); Monocyte# 0.55 X10^3/uL; Monocyte% 8.6 % (0-10); NRBC Flagged by Analyzer 0 % (0-5); Neutrophil # 3.58 X10^3/uL (2.7-7.7); Neutrophil % 56.1 % (47-70); Platelet Count 174 K/mm3 (150-450); RBC Distribution Width CV 13.4 % (11.6-14.6); RBC Distribution Width SD 48.4 fl (35.1-43.9); Red Blood Count 4.65 M/mm3 (4.2-5.4); White Blood Count 6.4 K/mm3 (4.4-11.0)
[2023-03-01 10:45] LABS: Microalbumin,Random Urine 12.5 mg/L (NO RANGE EST.); Microalbumin:Creatinine Ratio 16.7 mg/g CRE (<30 mg/g CRE)
[2023-03-01 11:10] LABS: ALB/GLOB Ratio 0.8 RATIO (0.9-2.4); AST(SGOT) 18 U/L (15-37); Alanine Aminotransfer ALT/SGPT 20 U/L (13-56); Albumin, Serum 3.1 g/dL (3.2-5.0); Alkaline Phosphatase 84 U/L (45-117); Anion Gap 4 (5-15); BUN 19 mg/dL (7-18); BUN/Creat Ratio 26.2 RATIO (10-20); Calcium,Total 9.8 mg/dL (8.5-10.1); Chloride 113 mmol/L (98-107); Cholesterol 146 mg/dL (200); Creatinine, Serum 0.73 mg/dL (0.55-1.02); EST Glomerular Filtration Rate 83 mL/min (>60); Est Glom Filt Rate - Afr Amer 100 mL/min (>60); Globulin 3.7 g/dL (2.2-4.2); Glucose 124 mg/dL (74-106); High Density Lipoprotein 72 mg/dL; Magnesium 2.2 mg/dL (1.6-2.6); Potassium 4.4 mmol/L (3.5-5.1); Protein, Total 6.8 g/dL (6.4-8.2); Sodium Level 142 mmol/L (136-145); Triglycerides 85 mg/dL; Very Low Density Lipoprotein 17 mg/dL (5-40)
== END | disposition home or self-care (01) ==
LOC: MFPLAB 08:18
PROVIDERS: PCP Family Medicine; Visit Provider Family Medicine
DX: E11.65 Type 2 diabetes mellitus with hyperglycemia (principal); E55.9 Vitamin D deficiency, unspecified; R00.0 Tachycardia, unspecified
CPT/HCPCS: 36415; 80053; 80061; 82043; 82306; 82570; 83036; 83735; 85025

== ENCOUNTER → 2023-04-05 | Outpatient (CLI) | payer MEDICARE, SELFPAY | END | disposition home or self-care (01) | LOC: LABSPEC 09:43 | PROVIDERS: PCP Family Medicine; Referring Provider Internal Medicine Pulmonary Disease; Visit Provider Internal Medicine Pulmonary Disease | DX: J45.20 Mild intermittent asthma, uncomplicated (principal); R06.02 Shortness of breath | CPT/HCPCS: 87070; 87205 ==

== ENCOUNTER → 2023-06-06 | Outpatient (CLI) | payer MEDICARE, SELFPAY ==
--- NOTE | 2023-06-06 07:40 | CT_ITS ---
EXAM: CT CHEST, LUNG CANCER SCREENING WITHOUT INTRAVENOUS CONTRAST CLINICAL INDICATION: SCREENING, HX OF SMOKING TECHNIQUE: Helically acquired images were obtained of the chest without intravenous contrast using low dose (LDCT) lung cancer screening protocol. This CT exam was performed using one or more of the following dose reduction techniques: automated exposure control, adjustment of the mA and/or kV according to patient size, and/or use of iterative reconstruction technique. COMPARISON: 06/04/2022 FINDINGS: LUNGS AND PLEURAL SPACES: Unremarkable. No mass. No consolidation or edema. No pleural effusion or thickening. No pneumothorax. HEART: Unremarkable. Heart size is normal. No pericardial effusion. No significant coronary artery calcifications. MEDIASTINUM: Unremarkable. No mediastinal or hilar adenopathy. Esophagus is unremarkable. No hiatal hernia. THYROID: Unremarkable. No thyroid lesions. BONES/JOINTS: Unremarkable. No suspicious lytic or blastic abnormality. VASCULATURE: Unremarkable. Thoracic aorta is non-dilated. LYMPH NODES: Unremarkable. No enlarged lymph nodes. TUBES, LINES AND DEVICES: There are stimulator leads in the mid thoracic canal. CT/Low Dose CT Lung Screening IMPRESSION: No acute pulmonary abnormality. There has been no change from the reference exam. Lung-RADS score: 1 - Recommend continued annual screening with a low-dose CT (LDCT) in 12 months. Electronically Signed: Fritz Hargrove MD at 0:00 EDT ,
== END | disposition home or self-care (01) ==
LOC: CT 07:39
PROVIDERS: PCP Family Medicine; Referring Provider Internal Medicine Pulmonary Disease; Visit Provider Internal Medicine Pulmonary Disease
DX: Z87.891 Personal history of nicotine dependence (principal)
CPT/HCPCS: 71271

== ENCOUNTER → 2023-08-16 | Outpatient (CLI) | payer MEDICARE, SELFPAY ==
[2023-08-16 10:22] LABS: Absolute Lymphocyte Count 1.87 X10^3/uL (0.83-4.51); Absolute Neutrophil Count 5.8 X10^3/uL (2.0-7.7); Basophil# 0.06 X10^3/uL; Basophil% 0.7 % (0-1); Eosinophil# 0.16 X10^3/uL; Eosinophils% 1.8 % (0-5); Hematocrit 45.3 % (37-47); Hemoglobin 14.6 g/dL (12.0-15.0); Lymphocyte # 1.87 X10^3/ul (0.83-4.51); Lymphocyte % 21.4 % (19-41); Mean Corp Hgb Conc 32.2 g/dL (32-36); Mean Corpuscular Hgb 29.3 pg (27.0-32.0); Mean Corpuscular Volume 90.8 fL (81-99); Monocyte# 0.74 X10^3/uL; Monocyte% 8.5 % (0-10); NRBC Flagged by Analyzer 0 % (0-5); Neutrophil # 5.83 X10^3/uL (2.7-7.7); Neutrophil % 66.8 % (47-70); Platelet Count 186 K/mm3 (150-450); RBC Distribution Width CV 12.3 % (11.6-14.6); Red Blood Count 4.99 M/mm3 (4.2-5.4); White Blood Count 8.7 K/mm3 (4.4-11.0)
[2023-08-16 10:39] LABS: Microalbumin,Random Urine 57.4 mg/L (NO RANGE EST.); Microalbumin:Creatinine Ratio 36.3 mg/g CRE (<30 mg/g CRE)
[2023-08-16 10:43] LABS: ALB/GLOB Ratio 0.9 RATIO (0.9-2.4); AST(SGOT) 21 U/L (15-37); Alanine Aminotransfer ALT/SGPT 28 U/L (13-56); Albumin, Serum 3.2 g/dL (3.2-5.0); Alkaline Phosphatase 63 U/L (45-117); Anion Gap 3 (5-15); BUN 27 mg/dL (7-18); BUN/Creat Ratio 27.9 RATIO (10-20); Calcium,Total 9.7 mg/dL (8.5-10.1); Chloride 107 mmol/L (98-107); Cholesterol 184 mg/dL (200); Creatinine, Serum 0.97 mg/dL (0.55-1.02); EST Glomerular Filtration Rate 59 mL/min (>60); Est Glom Filt Rate - Afr Amer 72 mL/min (>60); Globulin 3.6 g/dL (2.2-4.2); Glucose 202 mg/dL (74-106); High Density Lipoprotein 106 mg/dL; Potassium 4.3 mmol/L (3.5-5.1); Protein, Total 6.8 g/dL (6.4-8.2); Sodium Level 138 mmol/L (136-145); Triglycerides 71 mg/dL; Very Low Density Lipoprotein 14 mg/dL (5-40)
[2023-08-16 10:51] LABS: Vitamin D,25 Hydroxy 54.7 ng/mL
[2023-08-16 11:37] LABS: Hemoglobin A1c 8.7 % (3.8-5.6)
== END | disposition home or self-care (01) ==
LOC: MFPLAB 09:10
PROVIDERS: PCP Family Medicine; Visit Provider Family Medicine
DX: E11.65 Type 2 diabetes mellitus with hyperglycemia (principal); E55.9 Vitamin D deficiency, unspecified
CPT/HCPCS: 36415; 80053; 80061; 82043; 82306; 82570; 83036; 85025

== ENCOUNTER → 2023-11-18 | Outpatient (CLI) | payer MEDICARE, SELFPAY ==
[2023-11-18 09:34] LABS: Bacteria 0 SEEN /hpf (None Seen); Mucous, Urine 0 SEEN /hpf (<or=2+); White Blood Cells 0 SEEN /hpf (0-5)
[2023-11-18 12:16] LABS: Color, Urine Yellow (Yellow); Glucose, Dipstick 1000 mg/dl (Normal); Ketone-Dipstick Negative (Negative); Leukocyte Esterase-Dipstick Negative /ul (Negative); Nitrite-Dipstick Negative (Negative); Occult Blood-Urine 10 /ul (Negative); Protein-Dipstick Negative (Negative); Specific Gravity, Urine 1.015 (1.002-1.030); Urine Bilirubin Dipstick Negative (Negative); Urine Clarity Sl. Cloudy (Clear); Urine Urobilinogen Normal (Normal)
[2023-11-18 12:16] LABS: Absolute Lymphocyte Count 1.46 X10^3/uL (0.83-4.51); Absolute Neutrophil Count 4.6 X10^3/uL (2.0-7.7); Basophil# 0.06 X10^3/uL; Basophil% 0.9 % (0-1); Eosinophil# 0.19 X10^3/uL; Eosinophils% 2.7 % (0-5); Hematocrit 45.5 % (37-47); Hemoglobin 14.6 g/dL (12.0-15.0); Lymphocyte # 1.46 X10^3/ul (0.83-4.51); Lymphocyte % 20.9 % (19-41); Mean Corp Hgb Conc 32.1 g/dL (32-36); Mean Corpuscular Hgb 29.3 pg (27.0-32.0); Mean Corpuscular Volume 91.2 fL (81-99); Mean Platelet Vol. 10.1 fl (6.2-12.0); Monocyte% 8.6 % (0-10); NRBC Flagged by Analyzer 0 % (0-5); Neutrophil # 4.62 X10^3/uL (2.7-7.7); Platelet Count 199 K/mm3 (150-450); RBC Distribution Width CV 12.5 % (11.6-14.6); RBC Distribution Width SD 41.4 fl (35.1-43.9); Red Blood Count 4.99 M/mm3 (4.2-5.4)
[2023-11-18 12:32] LABS: Vitamin D,25 Hydroxy 46.1 ng/mL
[2023-11-18 12:43] LABS: Red Blood Cells-Urine 0-5 SEEN /hpf (0-5); Squamous Epithelial Cells - UA 0-5 SEEN /hpf (5-10)
[2023-11-18 12:51] LABS: Microalbumin,Random Urine 13.2 mg/L (NO RANGE EST.); Microalbumin:Creatinine Ratio 28.1 mg/g CRE (<30 mg/g CRE)
[2023-11-18 13:12] LABS: AST(SGOT) 21 U/L (15-37); Alanine Aminotransfer ALT/SGPT 23 U/L (13-56); Albumin, Serum 3.5 g/dL (3.2-5.0); Alkaline Phosphatase 58 U/L (45-117); Anion Gap 5 (5-15); BUN 20 mg/dL (7-18); BUN/Creat Ratio 22.2 RATIO (10-20); Calcium,Total 9.4 mg/dL (8.5-10.1); Chloride 108 mmol/L (98-107); Cholesterol 139 mg/dL (200); EST Glomerular Filtration Rate 64 mL/min (>60); Est Glom Filt Rate - Afr Amer 78 mL/min (>60); Globulin 3.6 g/dL (2.2-4.2); Glucose 182 mg/dL (74-106); High Density Lipoprotein 78 mg/dL; Potassium 4.3 mmol/L (3.5-5.1); Protein, Total 7.1 g/dL (6.4-8.2); Sodium Level 140 mmol/L (136-145); Thyroid Stim Hormone (TSH) 4.05 uIU/mL (0.358-3.74); Triglycerides 107 mg/dL; Very Low Density Lipoprotein 21 mg/dL (5-40)
[2023-11-18 14:01] LABS: Hemoglobin A1c 7.7 % (3.8-5.6)
[2023-11-21 16:38] LABS: T4 Free Direct 1.16 ng/dL (0.76-1.46)
[2023-11-23 17:07] LABS: Thyroglobulin Antibody < 1.0 IU/mL (0.0-0.9); Thyroid Peroxidase AB 11 IU/mL (0-34)
== END | disposition home or self-care (01) ==
LOC: MFPLAB 09:33
PROVIDERS: PCP Family Medicine; Visit Provider Family Medicine
DX: E11.8 Type 2 diabetes mellitus with unspecified complications (principal); E55.9 Vitamin D deficiency, unspecified; R79.89 Other specified abnormal findings of blood chemistry
CPT/HCPCS: 36415; 80053; 80061; 81001; 82043; 82306; 82570; 83036; 84439; 84443; 85025; 86376; 86800

== ENCOUNTER → 2024-03-14 | Outpatient (CLI) | payer MEDICARE, SELFPAY ==
[2024-03-14 18:03] LABS: PTHIN 63.9 pg/mL (18.4-80.1)
[2024-03-14 18:04] LABS: ALB/GLOB Ratio 0.9 RATIO (0.9-2.4); AST(SGOT) 47 U/L (15-37); Alanine Aminotransfer ALT/SGPT 27 U/L (13-56); Albumin, Serum 3.5 g/dL (3.2-5.0); Alkaline Phosphatase 80 U/L (45-117); Anion Gap 8 (5-15); BUN 21 mg/dL (7-18); BUN/Creat Ratio 24.6 RATIO (10-20); Calcium,Total 9.9 mg/dL (8.5-10.1); Chloride 104 mmol/L (98-107); Cholesterol 140 mg/dL (200); Creatinine, Serum 0.85 mg/dL (0.55-1.02); EST Glomerular Filtration Rate 69 mL/min (>60); Est Glom Filt Rate - Afr Amer 83 mL/min (>60); Globulin 3.9 g/dL (2.2-4.2); Glucose 205 mg/dL (74-106); High Density Lipoprotein 61 mg/dL; Potassium 4.2 mmol/L (3.5-5.1); Protein, Total 7.4 g/dL (6.4-8.2); Sodium Level 137 mmol/L (136-145); Triglycerides 178 mg/dL; Very Low Density Lipoprotein 36 mg/dL (5-40)
== END | disposition home or self-care (01) ==
LOC: MFPLAB 14:35
PROVIDERS: PCP Family Medicine; Visit Provider Family Medicine
DX: E11.59 Type 2 diabetes mellitus with other circulatory complications (principal); E83.52 Hypercalcemia
CPT/HCPCS: 36415; 80053; 80061; 82306; 83970

== ENCOUNTER → 2024-04-11 | Outpatient (CLI) | payer MEDICARE, SELFPAY ==
--- NOTE | 2024-04-11 10:57 | RAD_ITS ---
STUDY: X-RAY - THORACIC SPINE REASON FOR EXAM: Female, 78 years old. STRAIN TECHNIQUE: 3 view(s) of the thoracic spine were obtained. COMPARISON: None. FINDINGS: Normal kyphosis of the thoracic spine. There is no substantial scoliosis. No evidence for acute fracture or subluxation. No lytic or sclerotic bony lesions. Mild multilevel disc space narrowing and endplate spurring. Spinal stimulator noted within the spinal canal. Postsurgical changes of the lumbar spine. The soft tissue structures are unremarkable. RAD/Thoracic Spine 3 Views IMPRESSION: Spondylosis. No acute fracture or other significant bony pathology Electronically Signed: Tariq Moss MD at 18:22 EDT ,
--- NOTE | 2024-04-11 10:57 | RAD_ITS ---
STUDY: X-RAY - PELVIS AND RIGHT HIP REASON FOR EXAM: Female, 78 years old. PAIN TECHNIQUE: 3 views of the pelvis and hip. COMPARISON: None. FINDINGS: There is a non-specific bowel gas pattern. Normal visualized soft tissue structures. Normal bilateral iliac wings, sacroiliac joints and visualized sacrum. Normal bilateral superior and inferior pubic rami. Normal pubic symphysis. Normal bilateral ischial tuberosities. Postop change status post bilateral laminectomy and posterior fusion of the lower lumbar spine Bilateral hip prostheses are noted in anatomic alignment and position.. RAD/HIP, UNI W/ Pelvis 2-3 Views IMPRESSION: Postsurgical changes of the lower lumbar spine and stable appearance to bilateral hip prostheses. No acute fracture or other significant bony pathology Electronically Signed: Tariq Moss MD at 18:24 EDT ,
== END | disposition home or self-care (01) ==
LOC: RAD 10:55
PROVIDERS: PCP Family Medicine; Referring Provider Clinical Nurse Specialist Adult Health; Visit Provider Clinical Nurse Specialist Adult Health
DX: M54.6 Pain in thoracic spine (principal); T84.84XA Pain due to internal orthopedic prosthetic devices, implants and grafts, initial encounter; M25.551 Pain in right hip; Y79.2 Prosthetic and other implants, materials and accessory orthopedic devices associated with adverse incidents
CPT/HCPCS: 72072; 73502

== ENCOUNTER → 2024-05-15 | Outpatient (CLI) | payer MEDICARE, SELFPAY ==
[2024-05-15 08:53] LABS: Bacteria 0 SEEN /hpf (None Seen); Mucous, Urine 0 SEEN /hpf (<or=2+); Red Blood Cells-Urine 0 SEEN /hpf (0-5); White Blood Cells 0 SEEN /hpf (0-5)
[2024-05-15 10:04] LABS: Color, Urine Yellow (Yellow); Glucose, Dipstick Normal (Normal); Ketone-Dipstick Negative (Negative); Leukocyte Esterase-Dipstick Negative /ul (Negative); Nitrite-Dipstick Negative (Negative); Occult Blood-Urine Negative /ul (Negative); Protein-Dipstick Negative (Negative); Specific Gravity, Urine 1.015 (1.002-1.030); Urine Bilirubin Dipstick Negative (Negative); Urine Clarity Sl. Cloudy (Clear); Urine Urobilinogen Normal (Normal)
[2024-05-15 10:06] LABS: Absolute Lymphocyte Count 1.36 X10^3/uL (0.83-4.51); Absolute Neutrophil Count 4.1 X10^3/uL (2.0-7.7); Basophil# 0.04 X10^3/uL; Basophil% 0.6 % (0-1); Eosinophils% 3.2 % (0-5); Hematocrit 43.5 % (37-47); Hemoglobin 13.9 g/dL (12.0-15.0); Lymphocyte # 1.36 X10^3/ul (0.83-4.51); Lymphocyte % 21.8 % (19-41); Mean Corpuscular Hgb 29.1 pg (27.0-32.0); Mean Corpuscular Volume 91.2 fL (81-99); Mean Platelet Vol. 9.9 fl (6.2-12.0); Monocyte# 0.48 X10^3/uL; Monocyte% 7.7 % (0-10); NRBC Flagged by Analyzer 0 % (0-5); Neutrophil # 4.11 X10^3/uL (2.7-7.7); Neutrophil % 66.1 % (47-70); Platelet Count 181 K/mm3 (150-450); RBC Distribution Width CV 12.7 % (11.6-14.6); RBC Distribution Width SD 42.9 fl (35.1-43.9); Red Blood Count 4.77 M/mm3 (4.2-5.4); White Blood Count 6.2 K/mm3 (4.4-11.0)
[2024-05-15 10:12] LABS: Squamous Epithelial Cells - UA 0-5 SEEN /hpf (5-10)
[2024-05-15 10:20] LABS: Vitamin B12 555 pg/mL (211-911); Vitamin D,25 Hydroxy 48.6 ng/mL
[2024-05-15 10:44] LABS: AST(SGOT) 17 U/L (15-37); Alanine Aminotransfer ALT/SGPT 22 U/L (13-56); Albumin, Serum 3.3 g/dL (3.2-5.0); Alkaline Phosphatase 67 U/L (45-117); Anion Gap 6 (5-15); BUN 16 mg/dL (7-18); BUN/Creat Ratio 18.2 RATIO (10-20); Calcium,Total 9.8 mg/dL (8.5-10.1); Chloride 106 mmol/L (98-107); Cholesterol 145 mg/dL (200); Creatinine, Serum 0.88 mg/dL (0.55-1.02); EST Glomerular Filtration Rate 66 mL/min (>60); Est Glom Filt Rate - Afr Amer 80 mL/min (>60); Globulin 3.4 g/dL (2.2-4.2); Glucose 211 mg/dL (74-106); High Density Lipoprotein 67 mg/dL; Protein, Total 6.7 g/dL (6.4-8.2); Sodium Level 139 mmol/L (136-145); T4 Free Direct 1.23 ng/dL (0.76-1.46); Triglycerides 106 mg/dL; Very Low Density Lipoprotein 21 mg/dL (5-40)
[2024-05-15 10:52] LABS: Microalbumin:Creatinine Ratio 16.4 mg/g CRE (<30 mg/g CRE)
[2024-05-15 10:59] LABS: Hemoglobin A1c 7.4 % (3.8-5.6)
[2024-05-24 00:07] LABS: Vitamin B1, Thiamine 120.5 nmol/L (66.5-200.0)
== END | disposition home or self-care (01) ==
LOC: MFPLAB 08:49
PROVIDERS: PCP Family Medicine; Visit Provider Family Medicine
DX: E11.8 Type 2 diabetes mellitus with unspecified complications (principal); E03.8 Other specified hypothyroidism; E55.9 Vitamin D deficiency, unspecified
CPT/HCPCS: 36415; 80053; 80061; 81001; 82043; 82306; 82570; 82607; 83036; 84207; 84425; 84439; 84443; 85025

== ENCOUNTER → 2024-07-25 | Outpatient (CLI) | payer MEDICARE, SELFPAY ==
[2024-07-25 10:09] LABS: Absolute Neutrophil Count 6.4 X10^3/uL (2.0-7.7); Basophil# 0.06 X10^3/uL; Basophil% 0.6 % (0-1); Eosinophil# 0.19 X10^3/uL; Hemoglobin 13.9 g/dL (12.0-15.0); Lymphocyte % 19.4 % (19-41); Mean Corp Hgb Conc 31.6 g/dL (32-36); Mean Corpuscular Volume 91.9 fL (81-99); Mean Platelet Vol. 9.9 fl (6.2-12.0); Monocyte# 0.75 X10^3/uL; Monocyte% 8.1 % (0-10); NRBC Flagged by Analyzer 0 % (0-5); Neutrophil # 6.41 X10^3/uL (2.7-7.7); Neutrophil % 69.3 % (47-70); Platelet Count 193 K/mm3 (150-450); RBC Distribution Width CV 13.1 % (11.6-14.6); RBC Distribution Width SD 44.7 fl (35.1-43.9); Red Blood Count 4.79 M/mm3 (4.2-5.4); White Blood Count 9.3 K/mm3 (4.4-11.0)
[2024-07-25 10:25] LABS: AST(SGOT) 31 U/L (15-37); Alanine Aminotransfer ALT/SGPT 40 U/L (13-56); Albumin, Serum 3.5 g/dL (3.2-5.0); Alkaline Phosphatase 65 U/L (45-117); Anion Gap 5 (5-15); BUN 22 mg/dL (7-18); BUN/Creat Ratio 27.8 RATIO (10-20); Calcium,Total 9.7 mg/dL (8.5-10.1); Chloride 108 mmol/L (98-107); Cholesterol 169 mg/dL (200); Creatinine, Serum 0.79 mg/dL (0.55-1.02); EST Glomerular Filtration Rate 75 mL/min (>60); Est Glom Filt Rate - Afr Amer 91 mL/min (>60); Globulin 3.5 g/dL (2.2-4.2); Glucose 157 mg/dL (74-106); High Density Lipoprotein 91 mg/dL; Potassium 4.1 mmol/L (3.5-5.1); Sodium Level 138 mmol/L (136-145); Triglycerides 146 mg/dL; Very Low Density Lipoprotein 29 mg/dL (5-40)
[2024-07-25 10:28] LABS: Vitamin D,25 Hydroxy 31.9 ng/mL
[2024-07-25 10:41] LABS: Microalbumin,Random Urine 20.1 mg/L (NO RANGE EST.); Microalbumin:Creatinine Ratio 10.3 mg/g CRE (<30 mg/g CRE)
[2024-07-25 11:03] LABS: Hemoglobin A1c 6.6 % (3.8-5.6)
== END | disposition home or self-care (01) ==
LOC: MFPLAB 08:48
PROVIDERS: PCP Family Medicine; Referring Provider Family Medicine; Visit Provider Family Medicine
DX: R61 Generalized hyperhidrosis (principal); E11.8 Type 2 diabetes mellitus with unspecified complications; E55.9 Vitamin D deficiency, unspecified
CPT/HCPCS: 36415; 80053; 80061; 82043; 82306; 82570; 83036; 85025

== ENCOUNTER → 2024-07-26 | Outpatient (CLI) | payer MEDICARE, SELFPAY ==
--- NOTE | 2024-07-26 09:15 | RAD_ITS ---
INDICATION: RIGHT KNEE PAIN HX RIGHT TKR EXAMINATION/TECHNIQUE: X-RAY - RIGHT XR Knee Complete 4 Views or More 4 VIEWS COMPARISON: No relevant prior comparison study available FINDINGS: There is a total right knee arthroplasty. Longstem femoral and tibial components. The femoral component articulates appropriately with the tibial and patellar components. No joint effusion. No periprosthetic lucency or fracture. RAD/Knee 4 or More Views IMPRESSION: Total right knee arthroplasty without evidence of failure. Electronically Signed: Chidi Diallo MD at 5:59 EST ,
== END | disposition home or self-care (01) ==
LOC: RAD 09:09
PROVIDERS: PCP Family Medicine; Referring Provider Clinical Nurse Specialist Adult Health; Visit Provider Clinical Nurse Specialist Adult Health
DX: M25.561 Pain in right knee (principal); Z96.651 Presence of right artificial knee joint
CPT/HCPCS: 73564

== ENCOUNTER → 2024-09-07 | Outpatient (CLI) | payer MEDICARE, SELFPAY ==
--- NOTE | 2024-09-07 13:08 | RAD_ITS ---
STUDY: X-RAY CHEST REASON FOR EXAM: Female, 79 years old. CAP TECHNIQUE: PA and lateral views of the chest. COMPARISON: Comparison is made with prior study dated March 02, 2023. FINDINGS: EKG electrodes are seen. There is hyperinflation of the lungs consistent with chronic obstructive lung disease (COPD). There is no demonstrated pleural abnormality. Normal size heart. Normal mediastinum and jose. Normal visualized pulmonary arteries. There is atherosclerotic calcification of the aortic arch with tortuosity. There are degenerative changes of the visualized thoracic spine. Status post right shoulder replacement. Prior fusion of the lumbar spine. Electrodes from a spinal cord stimulator device are seen. RAD/Chest PA and Lateral IMPRESSION: Hyperinflation. No acute abnormality is seen. Electronically Signed: Nato Gates MD at 13:55 EST ,
== END | disposition home or self-care (01) ==
LOC: MTRAD 13:08
PROVIDERS: PCP Family Medicine; Referring Provider Family Medicine; Visit Provider Family Medicine
DX: J15.9 Unspecified bacterial pneumonia (principal)
CPT/HCPCS: 71046

== ENCOUNTER → 2024-10-02 | Outpatient (CLI) | payer MEDICARE, SELFPAY ==
[2024-10-02 10:33] LABS: Absolute Neutrophil Count 5.1 X10^3/uL (2.0-7.7); Basophil# 0.04 X10^3/uL; Basophil% 0.5 % (0-1); Eosinophil# 0.25 X10^3/uL; Eosinophils% 3.2 % (0-5); Hematocrit 44.6 % (37-47); Hemoglobin 14.4 g/dL (12.0-15.0); Lymphocyte % 25.4 % (19-41); Mean Corp Hgb Conc 32.3 g/dL (32-36); Mean Corpuscular Hgb 29.7 pg (27.0-32.0); Mean Platelet Vol. 9.7 fl (6.2-12.0); Monocyte# 0.48 X10^3/uL; Monocyte% 6.1 % (0-10); NRBC Flagged by Analyzer 0 % (0-5); Neutrophil # 5.06 X10^3/uL (2.7-7.7); Neutrophil % 64.4 % (47-70); Platelet Count 198 K/mm3 (150-450); RBC Distribution Width CV 12.5 % (11.6-14.6); RBC Distribution Width SD 42.5 fl (35.1-43.9); Red Blood Count 4.85 M/mm3 (4.2-5.4); White Blood Count 7.9 K/mm3 (4.4-11.0)
[2024-10-02 11:06] LABS: ALB/GLOB Ratio 0.9 RATIO (0.9-2.4); AST(SGOT) 36 U/L (15-37); Alanine Aminotransfer ALT/SGPT 46 U/L (13-56); Albumin, Serum 3.5 g/dL (3.2-5.0); Alkaline Phosphatase 62 U/L (45-117); Anion Gap 5 (5-15); BUN 19 mg/dL (7-18); BUN/Creat Ratio 22.5 RATIO (10-20); Calcium,Total 10.1 mg/dL (8.5-10.1); Chloride 108 mmol/L (98-107); Cholesterol 135 mg/dL (200); Creatinine, Serum 0.85 mg/dL (0.55-1.02); EST Glomerular Filtration Rate 69 mL/min (>60); Est Glom Filt Rate - Afr Amer 84 mL/min (>60); Globulin 3.9 g/dL (2.2-4.2); Glucose 138 mg/dL (74-106); High Density Lipoprotein 71 mg/dL; Potassium 4.2 mmol/L (3.5-5.1); Protein, Total 7.4 g/dL (6.4-8.2); Sodium Level 140 mmol/L (136-145); T4 Free Direct 1.41 ng/dL (0.76-1.46); Triglycerides 75 mg/dL; Very Low Density Lipoprotein 15 mg/dL (5-40)
[2024-10-02 12:18] LABS: Hemoglobin A1c 6.6 % (3.8-5.6)
[2024-10-04 15:33] LABS: Vitamin D,25 Hydroxy 40.2 ng/mL
[2024-10-07 14:07] LABS: VITAMIN B6 54.2 ug/L (3.4-65.2)
== END | disposition home or self-care (01) ==
LOC: MFPLAB 09:08
PROVIDERS: PCP Family Medicine; Referring Provider Family Medicine; Visit Provider Family Medicine
DX: E11.8 Type 2 diabetes mellitus with unspecified complications (principal); E03.8 Other specified hypothyroidism; E55.9 Vitamin D deficiency, unspecified
CPT/HCPCS: 36415; 80053; 80061; 82306; 83036; 84207; 84439; 84443; 85025

== ENCOUNTER → 2025-01-09 | Outpatient (CLI) | payer MEDICARE, SELFPAY ==
[2025-01-09 11:07] LABS: Absolute Lymphocyte Count 1.41 X10^3/uL (0.83-4.51); Absolute Neutrophil Count 3.2 X10^3/uL (2.0-7.7); Basophil# 0.04 X10^3/uL; Basophil% 0.7 % (0-1); Eosinophil# 0.17 X10^3/uL; Eosinophils% 3.2 % (0-5); Hematocrit 45.6 % (37-47); Hemoglobin 14.9 g/dL (12.0-15.0); Lymphocyte # 1.41 X10^3/ul (0.83-4.51); Lymphocyte % 26.3 % (19-41); Mean Corp Hgb Conc 32.7 g/dL (32-36); Mean Corpuscular Volume 94.8 fL (81-99); Mean Platelet Vol. 10.8 fl (6.2-12.0); Monocyte% 9.3 % (0-10); NRBC Flagged by Analyzer 0 % (0-5); Neutrophil # 3.23 X10^3/uL (2.7-7.7); Neutrophil % 60.1 % (47-70); Platelet Count 159 K/mm3 (150-450); RBC Distribution Width CV 12.3 % (11.6-14.6); RBC Distribution Width SD 42.9 fl (35.1-43.9); Red Blood Count 4.81 M/mm3 (4.2-5.4); White Blood Count 5.4 K/mm3 (4.4-11.0)
[2025-01-09 11:24] LABS: Hemoglobin A1c 6.4 % (<=5.6)
[2025-01-09 13:27] LABS: ALB/GLOB Ratio 1.4 RATIO (0.9-2.4); AST(SGOT) 30 U/L (<=31); Alanine Aminotransfer ALT/SGPT 22 U/L (<=34); Alkaline Phosphatase 63 U/L (35-104); Anion Gap 11 (5-15); BUN 11 mg/dL (4-19); BUN/Creat Ratio 14.7 RATIO (10-20); Calcium,Total 9.7 mg/dL (7.6-11.0); Chloride 104 mmol/L (98-108); Cholesterol 139 mg/dL (<=200); Creatinine, Serum 0.76 mg/dL (0.70-1.20); EST Glomerular Filtration Rate 80 (>60); Globulin 2.8 g/dL (2.2-4.2); Glucose 120 mg/dL (70-99); High Density Lipoprotein 56 mg/dL; Low Density Lipoprotein Calc. 63 mg/dL; Potassium 4.1 mmol/L (3.3-5.1); Protein, Total 6.8 g/dL (5.9-8.4); Sodium Level 140 mmol/L (133-145); Total Bilirubin 0.37 mg/dL (0.00-1.30); Triglycerides 98 mg/dL; Very Low Density Lipoprotein 20 mg/dL (5-40); Vitamin D,25 Hydroxy 33.3 ng/mL (30-100); cholesterol:hdl ratio screen 2.46
[2025-01-09 13:35] LABS: Microalbumin,Random Urine < 12.0 mg/L (NO RANGE EST.); Microalbumin:Creatinine Ratio UNABLE TO CALCULATE mg/g CRE
[2025-01-13 17:07] LABS: VITAMIN B6 49.5 ug/L (3.4-65.2)
== END | disposition home or self-care (01) ==
LOC: MFPLAB 08:17
PROVIDERS: PCP Family Medicine; Referring Provider Family Medicine; Visit Provider Family Medicine
DX: E11.8 Type 2 diabetes mellitus with unspecified complications (principal); E55.9 Vitamin D deficiency, unspecified
CPT/HCPCS: 36415; 80053; 80061; 82043; 82306; 82570; 83036; 84207; 85025

== ENCOUNTER → 2025-04-30 | Outpatient (CLI) | payer MEDICARE, SELFPAY ==
[2025-04-30 12:34] LABS: Creatinine, Urine (random) 123.00 mg/dL (28.00-217.00); Microalbumin,Random Urine < 12.0 mg/L (<20 mg/L)
[2025-04-30 12:37] LABS: Hematocrit 43.2 % (37-47); Hemoglobin 14.2 g/dL (12.0-15.0); Immature Granulocytes Count 0.030 X10^3/uL (0.0-0.0); Mean Corp Hgb Conc 32.9 g/dL (32-36); Mean Corpuscular Volume 93.7 fL (81-99); Mean Platelet Vol. 10.1 fl (6.2-12.0); NRBC Flagged by Analyzer 0 % (0-5); Platelet Count 169 K/mm3 (150-450); RBC Distribution Width CV 12.3 % (11.6-14.6); RBC Distribution Width SD 42.2 fl (35.1-43.9); Red Blood Count 4.61 M/mm3 (4.2-5.4); White Blood Count 6.3 K/mm3 (4.4-11.0)
[2025-04-30 12:49] LABS: AST(SGOT) 33 U/L (<=31); Alanine Aminotransfer ALT/SGPT 25 U/L (<=34); Albumin, Serum 3.9 g/dL (3.4-4.8); Alkaline Phosphatase 65 U/L (35-104); Anion Gap 12 (5-15); BUN 16 mg/dL (4-19); BUN/Creat Ratio 21.4 RATIO (10-20); Calcium,Total 9.8 mg/dL (7.6-11.0); Carbon Dioxide 24.9 mmol/L (21.0-32.0); Chloride 106 mmol/L (98-108); Cholesterol 144 mg/dL (<=200); Globulin 2.6 g/dL (2.2-4.2); Glucose 125 mg/dL (70-99); Low Density Lipoprotein Calc. 61 mg/dL; Potassium 4.1 mmol/L (3.3-5.1); Triglycerides 60 mg/dL; Very Low Density Lipoprotein 12 mg/dL (5-40); Vitamin B12 514 pg/mL (180-914); Vitamin D,25 Hydroxy 36.0 ng/mL (30-100); cholesterol:hdl ratio screen 2.03
[2025-05-06 13:08] LABS: VITAMIN B6 48.2 ug/L (3.4-65.2); Vitamin B1, Thiamine 111.2 nmol/L (66.5-200.0)
== END | disposition home or self-care (01) ==
LOC: MFPLAB 09:00
PROVIDERS: PCP Family Medicine; Visit Provider Family Medicine
DX: E11.59 Type 2 diabetes mellitus with other circulatory complications (principal); E55.9 Vitamin D deficiency, unspecified; E53.1 Pyridoxine deficiency
CPT/HCPCS: 36415; 80053; 80061; 82043; 82306; 82570; 82607; 83036; 84207; 84425; 85025

== ENCOUNTER → 2025-05-09 | Outpatient (CLI) | payer MEDICARE, SELFPAY ==
--- NOTE | 2025-05-09 14:50 | BD_ITS ---
PROCEDURE: DEXA BONE DENSITY/APPEND SKEL 05/09/2025 REASON FOR EXAM: F, age 79 y/o . Postmenopausal. TECHNIQUE: Procedure Code: [id number] Modality: DX Procedure: DEXA BONE DENSITY/APPEND SKEL COMPARISON: None FINDINGS: BMD and T-SCORES Left 1/3 radius: 0.648 g/cm2, T-score -0.8 Right 1/3 radius: 0.601 g/cm2, T-score -1.5 The World Health Organization has defined the following categories based on bone density: Normal bone density: T-score equal to or greater than -1.0 Osteopenia: T-score between -1.0 and -2.5 Osteoporosis: T-score equal to or less than -2.5 FRAX (or Comparable) Fracture Risk Assessment: 10 Year Probability of Fracture: Not reported due to no reportable hip. (Note: FRAX is not to be reported in setting of normal range bone density, osteoporosis on DEXA, known history of osteoporosis, prior osteoporotic hip or vertebral fracture, or for any patient undergoing pharmacological treatment for bone loss.) The National Osteoporosis Foundation (NOF) recommends pharmacological treatment for patients with a FRAX 10-year risk of 3% or higher for a hip fracture, or 20% or higher for a major osteoporotic fracture, to prevent osteoporosis and reduce fracture risk. The patient does not meet the pharmacological treatment recommendations for prevention of osteoporosis. BD/Dexa Bone Density/Append Skel IMPRESSION: OSTEOPENIA. Recommend follow-up as clinically warranted. Reading Location: [id number]
== END | disposition home or self-care (01) ==
LOC: OPBD 14:47
PROVIDERS: PCP Family Medicine
DX: M81.0 Age-related osteoporosis without current pathological fracture (principal); Z78.0 Asymptomatic menopausal state
CPT/HCPCS: 77081

== ENCOUNTER 2025-06-16 11:51 | Emergency (ER) | payer MEDICARE, SELFPAY ==
[2025-06-16] VITALS (28 sets, daily range): BP systolic 112–190; BP diastolic 65–163; PULSE 65–94; RESP 12–25; TEMP 36.4; O2SAT 73–99; BMI 38.0
--- NOTE | 2025-06-16 12:42 | ED.VIS.LOWEX ---
HPI History of Present Illness HPI Narrative: Patient presents right hip pain that began today. Patient states she was bending over putting on her clothes when she felt her right hip pop out. Patient states her pain is sharp. Patient states it is worse with any movement. Patient denies any paresthesias or weakness. Patient denies any fall. Patient denies any radiation of the pain. Patient states nothing makes the pain better. Chief Complaint: Lower Extremity Injury Informant: patient Onset/Context/Timing Onset: Today Context: Sudden Onset Timing: Continuous Quality of Pain: Sharp Location: Right hip Worsened by: Movement Relieved by: Nothing Associated Symptoms Associated Symptoms: Negative for Parasthesia, Weakness or Loss of Funtion PFSH [facility] Medical History Wears hearing aid Wears glasses Cancer Depression Diabetes Ambulates with cane Arthritis Back pain Dietary restriction History of diverticulitis Smoker CPAP (continuous positive airway pressure) dependence On home oxygen therapy Asthma Cardiology follow-up encounter History of stress test Hx of fracture of ankle Atrial fibrillation Anxiety and depression DDD (degenerative disc disease) Type 2 diabetes mellitus Obstructive sleep apnea Obesity Nicotine dependence Essential (primary) hypertension Home Medications ?Medication ?Instructions ?Recorded ?Last Taken ?Type acetaminophen 500 mg tablet 500 - 1,000 mg PO Q6H PRN PRN Pain 03/31/20 04/23/20 History Or Fever aspirin 81 mg tablet,delayed 81 mg PO QHS 03/31/20 04/19/20 History release atenolol 50 mg tablet 50 mg PO BID 03/31/20 03/16/21 History calcium carbonate 600 mg PO BID 03/31/20 04/23/20 History cholecalciferol (vitamin D3) 50 2,000 unit PO DAILY 03/31/20 04/23/20 History mcg (2,000 unit) capsule escitalopram oxalate 5 mg tablet 5 mg PO QHS 03/31/20 04/23/20 History ibuprofen 600 mg tablet 600 mg PO PRN PRN Pain Or Fever 03/31/20 04/23/20 History lutein 6 mg capsule 6 mg PO DAILY 03/31/20 04/23/20 History metformin 500 mg tablet,extended 500 mg PO DAILY 03/31/20 04/23/20 History release 24 hr trazodone 50 mg tablet 100 mg PO QHS 03/31/20 04/23/20 History valsartan 160 mg tablet 160 mg PO QHS 03/31/20 04/23/20 History gabapentin 300 mg capsule 300 mg PO TID 04/15/20 03/16/21 History dicyclomine 10 mg capsule 20 mg (2 x 10 mg) PO Q6H PRN PRN 08/26/22 Unknown Rx abdominal discomfort #20 CAPSULES Allergy/AdvReac Type Severity Reaction Status Date / Time hydrocodone (From Vicodin) Allergy Itching Verified 08/26/22 17:12 oxycodone (From Percocet) Allergy Itching Verified 08/26/22 17:12 Penicillins Allergy Hives Verified 08/26/22 17:12 Family History Mother CVA (cerebral vascular accident) Surgical History History of left heart catheterization (04/10/20) History of cataract surgery History of open reduction and internal fixation (ORIF) procedure History of knee replacement History of total hip arthroplasty History of carpal tunnel release History of lumbar fusion History of cholecystectomy Social History Smoking Status: Former smoker quit date: 08/15/19 pack-years: 90 Tobacco: How many years used: 59 ROS ROS ED Constitutional Constitutional ED: Denies chills or fever(s) Eyes Eyes: Denies blurry vision or change in vision ENT ENT ED: Denies rhinorrhea or sore throat Cardiovascular Cardiovascular: Denies chest pain or palpitations Respiratory/Chest Respiratory/Chest: Denies cough or dyspnea Gastrointestinal Gastrointestinal: Denies nausea or vomiting Genitourinary Genitourinary ED: Denies dysuria or hematuria Musculoskeletal Musculoskeletal: Reports back pain; Denies neck pain Integumentary Denies abscess or rash Neurologic Neurologic: Denies headache(s) or weakness Allergic/Immunologic Allergic/Immunologic ED: Denies mouth swelling or urticaria EXAM Physical Exam Const Vital Signs: 06/16/25 11:52 06/16/25 11:55 06/16/25 12:19 Temperature 97.5 F L Temperature Source Temporal Pulse Rate 75 Pulse Rate [1 (Initial Baseline)] Pulse Rate [2] Respiratory Rate 16 Respiratory Rate [1 (Initial Baseline)] Respiratory Rate [2] Blood Pressure 145/65 H Blood Pressure [1 (Initial Baseline)] Blood Pressure Mean 91 Baseline BP Pulse Ox 96 97 Oxygen Delivery Method Room Air Oxygen Delivery Method [1 (Initial Baseline)] Oxygen Delivery Method [2] Oxygen Flow Rate (L/min) Oxygen Flow Rate (L/min) [2] EtCo2 - Document during CPR and with ROSC EtCo2 - Document during CPR and with ROSC [1 (Initial Baseline)] EtCo2 - Document during CPR and with ROSC [2] 06/16/25 12:30 06/16/25 12:45 06/16/25 12:45 Temperature Temperature Source Pulse Rate Pulse Rate [1 (Initial Baseline)] Pulse Rate [2] Respiratory Rate Respiratory Rate [1 (Initial Baseline)] Respiratory Rate [2] Blood Pressure 129/75 H 124/69 H 124/69 H Blood Pressure [1 (Initial Baseline)] Blood Pressure Mean 91 86 86 Baseline BP Pulse Ox 99 94 Oxygen Delivery Method Oxygen Delivery Method [1 (Initial Baseline)] Oxygen Delivery Method [2] Oxygen Flow Rate (L/min) Oxygen Flow Rate (L/min) [2] EtCo2 - Document during CPR and with ROSC EtCo2 - Document during CPR and with ROSC [1 (Initial Baseline)] EtCo2 - Document during CPR and with ROSC [2] 06/16/25 13:00 06/16/25 13:15 06/16/25 13:25 Temperature Temperature Source Pulse Rate Pulse Rate [1 (Initial Baseline)] Pulse Rate [2] Respiratory Rate Respiratory Rate [1 (Initial Baseline)] Respiratory Rate [2] Blood Pressure 115/95 H 124/70 H Blood Pressure [1 (Initial Baseline)] Blood Pressure Mean 103 86 Baseline BP Pulse Ox Oxygen Delivery Method Oxygen Delivery Method [1 (Initial Baseline)] Oxygen Delivery Method [2] Oxygen Flow Rate (L/min) Oxygen Flow Rate (L/min) [2] EtCo2 - Document during CPR and with ROSC 37 EtCo2 - Document during CPR and with ROSC [1 (Initial Baseline)] EtCo2 - Document during CPR and with ROSC [2] 06/16/25 13:25 06/16/25 13:27 06/16/25 13:30 Temperature Temperature Source Pulse Rate 69 Pulse Rate [1 (Initial Baseline)] Pulse Rate [2] Respiratory Rate 15 Respiratory Rate [1 (Initial Baseline)] Respiratory Rate [2] Blood Pressure 128/84 H Blood Pressure [1 (Initial Baseline)] Blood Pressure Mean Baseline BP Pulse Ox 76 97 Oxygen Delivery Method Room Air Room Air Oxygen Delivery Method [1 (Initial Baseline)] Oxygen Delivery Method [2] Oxygen Flow Rate (L/min) Oxygen Flow Rate (L/min) [2] EtCo2 - Document during CPR and with ROSC 45 EtCo2 - Document during CPR and with ROSC [1 (Initial Baseline)] EtCo2 - Document during CPR and with ROSC [2] 06/16/25 13:32 06/16/25 13:35 06/16/25 13:40 Temperature Temperature Source Pulse Rate 71 67 Pulse Rate [1 (Initial Baseline)] Pulse Rate [2] Respiratory Rate 15 17 Respiratory Rate [1 (Initial Baseline)] Respiratory Rate [2] Blood Pressure 126/86 H 142/73 H Blood Pressure [1 (Initial Baseline)] Blood Pressure Mean 95 Baseline BP Pulse Ox 81 97 79 Oxygen Delivery Method Room Air Oxygen Delivery Method [1 (Initial Baseline)] Oxygen Delivery Method [2] Oxygen Flow Rate (L/min) Oxygen Flow Rate (L/min) [2] EtCo2 - Document during CPR and with ROSC 48 EtCo2 - Document during CPR and with ROSC [1 (Initial Baseline)] EtCo2 - Document during CPR and with ROSC [2] 06/16/25 13:45 06/16/25 14:00 06/16/25 14:15 Temperature Temperature Source Pulse Rate 67 66 Pulse Rate [1 (Initial Baseline)] Pulse Rate [2] Respiratory Rate 17 12 Respiratory Rate [1 (Initial Baseline)] Respiratory Rate [2] Blood Pressure 149/83 H 133/80 H 127/77 H Blood Pressure [1 (Initial Baseline)] Blood Pressure Mean 104 96 92 Baseline BP Pulse Ox 93 89 Oxygen Delivery Method Oxygen Delivery Method [1 (Initial Baseline)] Oxygen Delivery Method [2] Oxygen Flow Rate (L/min) Oxygen Flow Rate (L/min) [2] EtCo2 - Document during CPR and with ROSC EtCo2 - Document during CPR and with ROSC [1 (Initial Baseline)] EtCo2 - Document during CPR and with ROSC [2] 06/16/25 14:30 06/16/25 14:45 06/16/25 14:59 Temperature Temperature Source Pulse Rate 67 75 68 Pulse Rate [1 (Initial Baseline)] Pulse Rate [2] Respiratory Rate 14 14 17 Respiratory Rate [1 (Initial Baseline)] Respiratory Rate [2] Blood Pressure 129/77 H 119/81 H 119/81 H Blood Pressure [1 (Initial Baseline)] Blood Pressure Mean 94 93 Baseline BP 119/81 Pulse Ox 96 Oxygen Delivery Method Room Air Oxygen Delivery Method [1 (Initial Baseline)] Oxygen Delivery Method [2] Oxygen Flow Rate (L/min) Oxygen Flow Rate (L/min) [2] EtCo2 - Document during CPR and with ROSC 45 EtCo2 - Document during CPR and with ROSC [1 (Initial Baseline)] EtCo2 - Document during CPR and with ROSC [2] 06/16/25 15:00 06/16/25 15:02 06/16/25 15:05 Temperature Temperature Source Pulse Rate 70 Pulse Rate [1 (Initial Baseline)] 76 Pulse Rate [2] 74 Respiratory Rate 18 Respiratory Rate [1 (Initial Baseline)] 19 H Respiratory Rate [2] 25 H Blood Pressure 132/70 H 112/87 H Blood Pressure [1 (Initial Baseline)] 112/87 H Blood Pressure Mean 90 94 Baseline BP Pulse Ox 73 Oxygen Delivery Method Oxygen Delivery Method [1 (Initial Baseline)] Room Air Oxygen Delivery Method [2] Nasal Cannula Oxygen Flow Rate (L/min) Oxygen Flow Rate (L/min) [2] 8 EtCo2 - Document during CPR and with ROSC EtCo2 - Document during CPR and with ROSC [1 (Initial Baseline)] 51 EtCo2 - Document during CPR and with ROSC [2] 24 06/16/25 15:10 06/16/25 15:10 06/16/25 15:15 Temperature Temperature Source Pulse Rate 71 74 68 Pulse Rate [1 (Initial Baseline)] Pulse Rate [2] Respiratory Rate 15 13 13 Respiratory Rate [1 (Initial Baseline)] Respiratory Rate [2] Blood Pressure 118/83 H 118/83 H 128/84 H Blood Pressure [1 (Initial Baseline)] Blood Pressure Mean 95 98 Baseline BP Pulse Ox 96 96 96 Oxygen Delivery Method Nasal Cannula Oxygen Delivery Method [1 (Initial Baseline)] Oxygen Delivery Method [2] Oxygen Flow Rate (L/min) 8 Oxygen Flow Rate (L/min) [2] EtCo2 - Document during CPR and with ROSC 39 EtCo2 - Document during CPR and with ROSC [1 (Initial Baseline)] EtCo2 - Document during CPR and with ROSC [2] 06/16/25 15:20 06/16/25 15:30 06/16/25 15:45 Temperature Temperature Source Pulse Rate 65 69 Pulse Rate [1 (Initial Baseline)] Pulse Rate [2] Respiratory Rate 16 16 Respiratory Rate [1 (Initial Baseline)] Respiratory Rate [2] Blood Pressure 126/86 H 139/82 H Blood Pressure [1 (Initial Baseline)] Blood Pressure Mean 99 100 Baseline BP Pulse Ox 94 96 Oxygen Delivery Method Oxygen Delivery Method [1 (Initial Baseline)] Oxygen Delivery Method [2] Oxygen Flow Rate (L/min) Oxygen Flow Rate (L/min) [2] EtCo2 - Document during CPR and with ROSC EtCo2 - Document during CPR and with ROSC [1 (Initial Baseline)] EtCo2 - Document during CPR and with ROSC [2] 06/16/25 16:00 06/16/25 17:16 Temperature 97.5 F L Temperature Source Pulse Rate 67 94 Pulse Rate [1 (Initial Baseline)] Pulse Rate [2] Respiratory Rate 19 H 18 Respiratory Rate [1 (Initial Baseline)] Respiratory Rate [2] Blood Pressure 190/163 H 151/80 H Blood Pressure [1 (Initial Baseline)] Blood Pressure Mean 172 103 Baseline BP Pulse Ox 98 93 Oxygen Delivery Method Oxygen Delivery Method [1 (Initial Baseline)] Oxygen Delivery Method [2] Oxygen Flow Rate (L/min) Oxygen Flow Rate (L/min) [2] EtCo2 - Document during CPR and with ROSC EtCo2 - Document during CPR and with ROSC [1 (Initial Baseline)] EtCo2 - Document during CPR and with ROSC [2] Positive well nourished and well developed Constitutional Narrative: BMI is 38.1. General Appearance ED: well developed and NAD HEENT Reports moist mucous membranes Neck full ROM and supple Resp normal respiratory effort and clear to auscultation bilaterally Cardio regular rate and regular rhythm GI non-tender and non-distended Palpation: soft Extremity Extremity Narrative: There is tenderness over the right hip. There is no bony crepitance or step-off. There is shortening and internal rotation of the right lower extremity. There is no erythema or warmth noted. Range of motion was limited in all motions of the right hip secondary to pain. General Extremety ED: Yes weight-bearing difficulty General Extremity: weight-bearing difficulty Neuro oriented x3, CN's II-XII intact bilaterally, moves all extremities and no sensory deficits noted Sensorium / Orientation: alert Motor Exam: strength 5/5 throughout MDM MDM MDM Narrative Medical decision making narrative: Differential diagnosis includes fracture, dislocation, sprain, contusion, and muscle strain. X-rays of the right hip will be obtained to assess for fracture and dislocation. Radiography Diagnostic Testing: Clinical Impression(s) from Imaging Studies Hip/Pelvis X-Ray 06/16/25 13:00 IMPRESSION: Status post total right hip arthroplasty. There is dislocation of the ball-socket of the right hip with superior dislocation of the femoral prosthesis. Reading Location: [id number] Hip/Pelvis X-Ray 06/16/25 16:20 IMPRESSION: Satisfactory reduction of dislocated right hip arthroplasty Reading [facility] X-rays of the right hip were obtained. There is 1 view. On my independent interpretation, there is a superior dislocation of the right hip. X-rays of the right hip were obtained postreduction. There are 3 views. On my independent interpretation, there is good reduction of the hip dislocation. There is no acute fracture noted. Radiologist also interpreted the x-rays and agrees. Treatment and Re-Evaluation Narrative: Patient was given morphine. Patient was advised of her findings. Patient was advised of the need for sedation and reduction of the dislocation. Patient was advised of the risks and benefits. Patient was given the opportunity ask questions. Patient had no further questions. Informed consent was obtained. Patient was placed on continuous cardiac and pulse oximetry monitors. Patient was given injection of 60 mg of propofol. After adequate sedation, the hip was reduced using traction and internal rotation. Patient was placed in a knee immobilizer. Patient was taken off of the backboard. Patient had an episode where her oxygen saturation dropped into the 80s. This improved after a jaw thrust maneuver and increasing the nasal cannula oxygen. ( reports patient does have a history of sleep apnea and uses a CPAP at night). Patient tolerated procedure well. Patient felt better when she woke up. There were no dysrhythmias noted on the monitor. Patient was instructed to wear her knee immobilizer until she follows up. Patient was instructed to follow-up with her primary care physician and orthopedic surgeon in 5 to 7 days. Patient understands and is agreeable with the plan. All questions were answered. Procedures Procedural Sedation 1 (Initial Baseline): Consent Signed: Yes Any Problems With Anesthesia: No You/Your family experience fever (hyperthermia) w/anesthesia: No Sedation medication: Propofol Route: IV Maliampati Score: Class II ASA Classification: II Discharge Plan Triage Chief Complaint: Lower Extremity Injury ED Provider: Patrick Tejeda Dx/Rx/DC Orders Clinical Impression: Dislocation of right hip, Essential (primary) hypertension Instructions: ED Hip Replace Dislocation Reduc Prescriptions: No Action trazodone 50 MG tablet 100 mg PO QHS aspirin 81 MG tablet,delayed release (DR/EC) 81 mg PO QHS acetaminophen 500 MG tablet 500 - 1,000 mg PO Q6H PRN PRN (Reason: Pain Or Fever) calcium carbonate 600 MG tablet 600 mg PO BID lutein 6 MG capsule 6 mg PO DAILY ibuprofen 600 MG tablet 600 mg PO PRN PRN (Reason: Pain Or Fever) metformin 500 MG tablet extended release 24 hr 500 mg PO DAILY atenolol 50 MG tablet 50 mg PO BID valsartan 160 MG tablet 160 mg PO QHS escitalopram oxalate 5 MG tablet 5 mg PO QHS cholecalciferol (vitamin D3) 2,000 UNIT capsule 2,000 unit PO DAILY gabapentin 300 MG capsule 300 mg PO TID dicyclomine 10 mg capsule 20 mg PO Q6H PRN PRN (Reason: abdominal discomfort) Qty: 20 0RF Primary Care Provider: Nicholas Alonso Referrals: Nicholas Alonso MD [Primary Care Provider, Family Practice] - 5-7 Days Activity Restrictions/Additional Instructions: Follow-up with your orthopedic surgeon in 5 to 7 days as well. Wear the knee immobilizer at all times until you follow-up with your physicians. Print Language: Stateless Disposition Disposition: Home, Self Care
--- NOTE | 2025-06-16 13:00 | RAD_ITS ---
PROCEDURE: RAD/HIP, UNI W/ Pelvis 2-3 Views
--- NOTE | 2025-06-16 16:20 | RAD_ITS ---
PROCEDURE: RAD/HIP, UNI W/ Pelvis 2-3 Views
== END 2025-06-16 17:38 | disposition home or self-care (01) ==
PROVIDERS: Emergency Provider Emergency Medicine; PCP Family Medicine; Visit Provider Emergency Medicine
DX: T84.020A Dislocation of internal right hip prosthesis, initial encounter (principal); S73.004A Unspecified dislocation of right hip, initial encounter; E11.9 Type 2 diabetes mellitus without complications; I10 Essential (primary) hypertension; Z87.891 Personal history of nicotine dependence; J45.909 Unspecified asthma, uncomplicated; Z96.641 Presence of right artificial hip joint; X58.XXXA Exposure to other specified factors, initial encounter
CPT/HCPCS: 73502; 96374; 96376; 99285; A4216

== ENCOUNTER → 2025-07-01 | Outpatient (CLI) | payer MEDICARE, SELFPAY ==
[2025-07-01 12:27] LABS: Hematocrit 42.9 % (37-47); Hemoglobin 14.2 g/dL (12.0-15.0); Immature Granulocytes Count 0.050 X10^3/uL (0.0-0.0); Mean Corp Hgb Conc 33.1 g/dL (32-36); Mean Corpuscular Volume 93.5 fL (81-99); Mean Platelet Vol. 10.4 fl (6.2-12.0); NRBC Flagged by Analyzer 0 % (0-5); Platelet Count 177 K/mm3 (150-450); RBC Distribution Width CV 13.0 % (11.6-14.6); RBC Distribution Width SD 44.5 fl (35.1-43.9); Red Blood Count 4.59 M/mm3 (4.2-5.4); White Blood Count 7.8 K/mm3 (4.4-11.0)
== END | disposition home or self-care (01) ==
LOC: MTLAB 09:37
PROVIDERS: PCP Family Medicine; Referring Provider Internal Medicine Pulmonary Disease; Visit Provider Internal Medicine Pulmonary Disease
DX: J45.909 Unspecified asthma, uncomplicated (principal)
CPT/HCPCS: 36415; 85025

== ENCOUNTER 2025-07-10 08:53 | Emergency (ER) | payer MEDICARE, SELFPAY ==
[2025-07-10] VITALS (12 sets, daily range): BP systolic 107–175; BP diastolic 68–105; PULSE 69–82; RESP 10–77; TEMP 36.2–36.6; O2SAT 66–100; BMI 38.7
--- NOTE | 2025-07-10 09:27 | RAD_ITS ---
PROCEDURE: HIP, UNI W/ PELVIS 2-3 VIEWS 07/10/2025 REASON FOR EXAM: DISLOCATION TECHNIQUE: Procedure Code: [facility] Modality: DX Procedure: HIP, UNI W/ PELVIS 2-3 VIEWS Laterality: Left COMPARISON: 06/16/2025 FINDINGS: BONES/JOINTS: Hip prostheses present bilaterally with superolateral dislocation of the right femoral prosthesis. No acute fracture or focal osseous lesion. Partially imaged spinal fusion hardware in the lumbosacral spine and knee arthroplasty hardware. SOFT TISSUES: The soft tissues are unremarkable. RAD/HIP, UNI W/ Pelvis 2-3 Views IMPRESSION: Superolateral dislocation of the right femoral prosthesis. Reading Location: [id number]
--- NOTE | 2025-07-10 09:30 | ED.VIS.LOWEX ---
HPI History of Present Illness Chief Complaint: Lower Extremity Injury Informant: patient and EMS Narrative Narrative: 80-year-old female presenting to the emergency room chief complaint of hip dislocation. Patient states that she had a right hip replacement with [facility] about 15 years ago. She states that 2 weeks ago while bending over she dislocated her right hip. She followed up locally with Dr. Vasquez from [facility] and went to physical therapy. She been doing well and is out of her immobilizer. Today she bent over to pick something up and felt her right hip dislocate. EMS was called. She was given fentanyl and route. She notes pain in the right hip. She denies any other injuries. She has not had any prior difficulties with anesthesia. Her ED course from 2 weeks ago was reviewed. She is not on blood thinners. [facility] Medical History Wears hearing aid Wears glasses Cancer Depression Diabetes Ambulates with cane Arthritis Back pain Dietary restriction History of diverticulitis Smoker CPAP (continuous positive airway pressure) dependence On home oxygen therapy Asthma Cardiology follow-up encounter History of stress test Hx of fracture of ankle Atrial fibrillation Anxiety and depression DDD (degenerative disc disease) Type 2 diabetes mellitus Obstructive sleep apnea Obesity Nicotine dependence Essential (primary) hypertension Home Medications ?Medication ?Instructions ?Recorded ?Last Taken ?Type acetaminophen 500 mg tablet 500 - 1,000 mg PO Q6H PRN PRN Pain 03/31/20 04/23/20 History Or Fever aspirin 81 mg tablet,delayed 81 mg PO QHS 03/31/20 07/09/25 History release atenolol 50 mg tablet 50 mg PO BID 03/31/20 07/10/25 History calcium carbonate 600 mg PO BID 03/31/20 07/09/25 History cholecalciferol (vitamin D3) 50 2,000 unit PO DAILY 03/31/20 07/09/25 History mcg (2,000 unit) capsule trazodone 50 mg tablet 100 mg PO QHS 03/31/20 07/09/25 History valsartan 160 mg tablet 160 mg PO QHS 03/31/20 07/09/25 History gabapentin 300 mg capsule 300 mg PO TID 04/15/20 07/10/25 History escitalopram oxalate 20 mg tablet 20 mg PO DAILY 07/10/25 07/10/25 History meloxicam 7.5 mg tablet 7.5 mg PO DAILY 07/10/25 07/10/25 History rosuvastatin 10 mg tablet 5 mg PO QHS 07/10/25 07/09/25 History semaglutide 2 mg/dose (8 mg/3 mL) 2 mg subcut QWEEK 07/10/25 07/05/25 History subcutaneous pen injector (Ozempic) tramadol 50 mg tablet 25 - 50 mg PO TID PRN PRN pain 07/10/25 Unknown History tramadol 50 mg tablet 50 mg PO Q6H PRN PRN Pain 3 days 07/10/25 Unknown Rx #12 tabs Allergy/AdvReac Type Severity Reaction Status Date / Time hydrocodone (From Vicodin) Allergy Itching Verified 07/10/25 08:58 oxycodone (From Percocet) Allergy Itching Verified 07/10/25 08:58 Penicillins Allergy Hives Verified 07/10/25 08:58 Family History Mother CVA (cerebral vascular accident) Surgical History History of left heart catheterization (04/10/20) History of cataract surgery History of open reduction and internal fixation (ORIF) procedure History of knee replacement History of total hip arthroplasty History of carpal tunnel release History of lumbar fusion History of cholecystectomy Social History Smoking Status: Current every day smoker tobacco type: cigarettes Tobacco: How many years used: 59 ROS ROS ED Constitutional Constitutional ED: Denies chills, fever(s) or weight loss Eyes Eyes: Denies change in vision or diplopia ENT ENT ED: Denies ear pain, rhinorrhea or sore throat Cardiovascular Cardiovascular: Denies chest pain, orthopnea, palpitations or racing heartbeat Respiratory/Chest Respiratory/Chest: Denies cough, dyspnea or orthopnea Gastrointestinal Gastrointestinal: Denies abdominal pain, diarrhea, nausea or vomiting Genitourinary Genitourinary ED: Denies dysuria, hematuria or urinary frequency Musculoskeletal Musculoskeletal: Reports other Details: Right hip pain ; Denies arthralgias or myalgias Integumentary Denies abscess or rash Neurologic Neurologic: Denies headache(s) or weakness Psychiatric Psychiatric: Denies anxiety, depression, suicidal ideation or suicidal thoughts Endocrine Endocrinology: Denies polydipsia, polyphagia or polyuria Allergic/Immunologic Allergic/Immunologic ED: Denies mouth swelling, tongue swelling or urticaria EXAM Physical Exam Narrative Exam Narrative: Patient is laying on her left side. She appears quite uncomfortable noting pain in the right hip Const Vital Signs: 07/10/25 08:55 07/10/25 09:27 07/10/25 09:55 Temperature 97.2 F L Temperature Source Oral Pulse Rate 81 Pulse Rate [1 (Initial Baseline)] Pulse Rate [2] Pulse Rate [3] Pulse Rate [4] Pulse Rate [5] Pulse Rate [6] Pulse Rate [7] Respiratory Rate 16 Respiratory Rate [1 (Initial Baseline)] Respiratory Rate [2] Respiratory Rate [3] Respiratory Rate [4] Respiratory Rate [5] Respiratory Rate [6] Respiratory Rate [7] Blood Pressure Blood Pressure [1 (Initial Baseline)] Blood Pressure [2] Blood Pressure [3] Blood Pressure [4] Blood Pressure [5] Blood Pressure [6] Blood Pressure [7] Blood Pressure Mean Baseline BP Pulse Ox 97 Oxygen Delivery Method Room Air Nasal Cannula Oxygen Delivery Method [1 (Initial Baseline)] Oxygen Delivery Method [2] Oxygen Delivery Method [3] Oxygen Delivery Method [4] Oxygen Delivery Method [5] Oxygen Delivery Method [6] Oxygen Delivery Method [7] Oxygen Flow Rate (L/min) Oxygen Flow Rate (L/min) [1 (Initial Baseline)] Oxygen Flow Rate (L/min) [2] Oxygen Flow Rate (L/min) [3] Oxygen Flow Rate (L/min) [4] Oxygen Flow Rate (L/min) [5] Oxygen Flow Rate (L/min) [6] Oxygen Flow Rate (L/min) [7] Fraction of Inspired Oxygen (FIO2) [6] EtCo2 - Document during CPR and with ROSC 38 EtCo2 - Document during CPR and with ROSC [1 (Initial Baseline)] EtCo2 - Document during CPR and with ROSC [2] EtCo2 - Document during CPR and with ROSC [3] EtCo2 - Document during CPR and with ROSC [4] EtCo2 - Document during CPR and with ROSC [5] EtCo2 - Document during CPR and with ROSC [6] EtCo2 - Document during CPR and with ROSC [7] 07/10/25 09:55 07/10/25 10:00 07/10/25 10:25 Temperature 98 F Temperature Source Pulse Rate 82 82 78 Pulse Rate [1 (Initial Baseline)] Pulse Rate [2] Pulse Rate [3] Pulse Rate [4] Pulse Rate [5] Pulse Rate [6] Pulse Rate [7] Respiratory Rate 20 H 20 H 20 H Respiratory Rate [1 (Initial Baseline)] Respiratory Rate [2] Respiratory Rate [3] Respiratory Rate [4] Respiratory Rate [5] Respiratory Rate [6] Respiratory Rate [7] Blood Pressure 136/100 H 130/90 H 110/84 H Blood Pressure [1 (Initial Baseline)] Blood Pressure [2] Blood Pressure [3] Blood Pressure [4] Blood Pressure [5] Blood Pressure [6] Blood Pressure [7] Blood Pressure Mean 112 103 Baseline BP 110/84 Pulse Ox 96 96 99 Oxygen Delivery Method Room Air Room Air Oxygen Delivery Method [1 (Initial Baseline)] Oxygen Delivery Method [2] Oxygen Delivery Method [3] Oxygen Delivery Method [4] Oxygen Delivery Method [5] Oxygen Delivery Method [6] Oxygen Delivery Method [7] Oxygen Flow Rate (L/min) Oxygen Flow Rate (L/min) [1 (Initial Baseline)] Oxygen Flow Rate (L/min) [2] Oxygen Flow Rate (L/min) [3] Oxygen Flow Rate (L/min) [4] Oxygen Flow Rate (L/min) [5] Oxygen Flow Rate (L/min) [6] Oxygen Flow Rate (L/min) [7] Fraction of Inspired Oxygen (FIO2) [6] EtCo2 - Document during CPR and with ROSC 27 EtCo2 - Document during CPR and with ROSC [1 (Initial Baseline)] EtCo2 - Document during CPR and with ROSC [2] EtCo2 - Document during CPR and with ROSC [3] EtCo2 - Document during CPR and with ROSC [4] EtCo2 - Document during CPR and with ROSC [5] EtCo2 - Document during CPR and with ROSC [6] EtCo2 - Document during CPR and with ROSC [7] 07/10/25 10:30 07/10/25 10:36 07/10/25 10:41 Temperature Temperature Source Pulse Rate 79 80 Pulse Rate [1 (Initial Baseline)] 76 Pulse Rate [2] 73 Pulse Rate [3] 69 Pulse Rate [4] 74 Pulse Rate [5] 74 Pulse Rate [6] 82 Pulse Rate [7] 76 Respiratory Rate 14 10 L Respiratory Rate [1 (Initial Baseline)] 20 H Respiratory Rate [2] 20 H Respiratory Rate [3] 16 Respiratory Rate [4] 14 Respiratory Rate [5] 18 Respiratory Rate [6] 12 Respiratory Rate [7] 14 Blood Pressure 123/76 H 124/74 H Blood Pressure [1 (Initial Baseline)] 138/71 H Blood Pressure [2] 139/74 H Blood Pressure [3] 139/74 H Blood Pressure [4] 150/94 H Blood Pressure [5] 175/81 H Blood Pressure [6] 141/105 H Blood Pressure [7] 141/105 H Blood Pressure Mean Baseline BP Pulse Ox 98 99 Oxygen Delivery Method Nasal Cannula Nasal Cannula Oxygen Delivery Method [1 (Initial Baseline)] Nasal Cannula Oxygen Delivery Method [2] Nasal Cannula Oxygen Delivery Method [3] Nasal Cannula Oxygen Delivery Method [4] Nasal Cannula Oxygen Delivery Method [5] Nasal Cannula Oxygen Delivery Method [6] Nasal Cannula Oxygen Delivery Method [7] Nasal Cannula Oxygen Flow Rate (L/min) 2 2 Oxygen Flow Rate (L/min) [1 (Initial Baseline)] 3 Oxygen Flow Rate (L/min) [2] 3 Oxygen Flow Rate (L/min) [3] 3 Oxygen Flow Rate (L/min) [4] 6 Oxygen Flow Rate (L/min) [5] 6 Oxygen Flow Rate (L/min) [6] 2 Oxygen Flow Rate (L/min) [7] 2 Fraction of Inspired Oxygen (FIO2) [6] 37 EtCo2 - Document during CPR and with ROSC 33 32 EtCo2 - Document during CPR and with ROSC [1 (Initial Baseline)] 24 EtCo2 - Document during CPR and with ROSC [2] 24 EtCo2 - Document during CPR and with ROSC [3] 25 EtCo2 - Document during CPR and with ROSC [4] 42 EtCo2 - Document during CPR and with ROSC [5] 36 EtCo2 - Document during CPR and with ROSC [6] 37 EtCo2 - Document during CPR and with ROSC [7] 37 07/10/25 10:46 07/10/25 11:00 07/10/25 12:00 Temperature Temperature Source Pulse Rate 77 80 80 Pulse Rate [1 (Initial Baseline)] Pulse Rate [2] Pulse Rate [3] Pulse Rate [4] Pulse Rate [5] Pulse Rate [6] Pulse Rate [7] Respiratory Rate 77 H 14 14 Respiratory Rate [1 (Initial Baseline)] Respiratory Rate [2] Respiratory Rate [3] Respiratory Rate [4] Respiratory Rate [5] Respiratory Rate [6] Respiratory Rate [7] Blood Pressure 107/76 121/73 H 120/68 Blood Pressure [1 (Initial Baseline)] Blood Pressure [2] Blood Pressure [3] Blood Pressure [4] Blood Pressure [5] Blood Pressure [6] Blood Pressure [7] Blood Pressure Mean 89 85 Baseline BP Pulse Ox 99 96 96 Oxygen Delivery Method Nasal Cannula Oxygen Delivery Method [1 (Initial Baseline)] Oxygen Delivery Method [2] Oxygen Delivery Method [3] Oxygen Delivery Method [4] Oxygen Delivery Method [5] Oxygen Delivery Method [6] Oxygen Delivery Method [7] Oxygen Flow Rate (L/min) Oxygen Flow Rate (L/min) [1 (Initial Baseline)] Oxygen Flow Rate (L/min) [2] Oxygen Flow Rate (L/min) [3] Oxygen Flow Rate (L/min) [4] Oxygen Flow Rate (L/min) [5] Oxygen Flow Rate (L/min) [6] Oxygen Flow Rate (L/min) [7] Fraction of Inspired Oxygen (FIO2) [6] EtCo2 - Document during CPR and with ROSC 34 EtCo2 - Document during CPR and with ROSC [1 (Initial Baseline)] EtCo2 - Document during CPR and with ROSC [2] EtCo2 - Document during CPR and with ROSC [3] EtCo2 - Document during CPR and with ROSC [4] EtCo2 - Document during CPR and with ROSC [5] EtCo2 - Document during CPR and with ROSC [6] EtCo2 - Document during CPR and with ROSC [7] Positive well nourished, well developed and obese General Appearance ED: well developed Nutritional Appearance: obese HEENT Reports normocephalic, head/scalp atraumatic and moist mucous membranes Eyes PERRL and EOMs intact bilaterally Neck no lymphadenopathy, supple and no JVD Resp normal respiratory effort and clear to auscultation bilaterally Cardio regular rate, regular rhythm and no murmurs GI normal to inspection, nondistended, normoactive bowel sounds and non-tender Palpation: soft Back/Spine no CVA tenderness and normal ROM Extremity Extremity Narrative: There is a strong dorsalis pedis pulse. The foot appears normal color with good capillary refill. Sensation is preserved. Difficult to assess leg length on initial exam given her body positioning and her pain and inability to adjust position. General Extremety ED: Negative for edema General Extremity: Negative for edema Neuro oriented x3 and CN's II-XII intact bilaterally Sensorium / Orientation: alert Motor Exam: strength 5/5 throughout Psych mental status grossly normal Mood & Affect: Negative for depressed or tearful Skin no rashes or lesions noted and no wounds MDM MDM MDM Narrative Medical decision making narrative: Differential diagnosis includes hip dislocation fracture loosening of hardware fracture of hardware neurovascular injury ligamentous injury tendon injury capsular injury My independent interpretation of the plain films of the right hip and pelvis prereduction is a superior hip dislocation. Patient provided informed written consent for the use of propofol for procedural sedation. Patient received a dose of morphine and Zofran. She was placed on the cardiac and pulse oximeter monitors as well as capnography. Given her age she was given initial dose of 0.5 mg/kg bolus of propofol and subsequent aliquots of 0.25 mg/kg bolus of propofol until adequate sedation was achieved. Using traction and external rotation the hip was reduced. She was placed in a knee immobilizer. Patient did have some desaturation down into the 60s due to apnea and received about 20 seconds of bagged valve mask respirations. She recovered without any other further incidents. Postreduction films were obtained show adequate reduction.Patient got up to use the bathroom and stated something felt very wrong in her hip and was painful. It does not appear dislocated. I spoke with orthopedics. They requested full-length femur films which were obtained. I do not see any dislocation again. Patient has a walker at home. She has some tramadol leftover from her previous dislocation. I will write for more should she need some. She will follow-up in the office. History & Record Review Discussion w/independent historian: EMS personnel and Patient Additional record(s) reviewed:: Prior ED visit Radiography Diagnostic Testing: Clinical Impression(s) from Imaging Studies Hip/Pelvis X-Ray 07/10/25 09:27 IMPRESSION: Superolateral dislocation of the right femoral prosthesis. Reading Location: [id number] Hip/Pelvis X-Ray 07/10/25 09:55 IMPRESSION: Successful reduction of the right total hip prosthesis is seen. No fracture site is evident on the images obtained. Reading Location: [address] Management Discussion w/another healthcare provider: [employer] Supervisor (Dr. Vasquez orthopedics) Procedures Procedural Sedation 1 (Initial Baseline): Consent Signed: Yes Any Problems With Anesthesia: No You/Your family experience fever (hyperthermia) w/anesthesia: No Sedation medication: Propofol Dose: 67.5 Route: IV Total Moderate Sedation Units: 22 Maliampati Score: Class II ASA Classification: I and II Discharge Plan Triage Chief Complaint: Lower Extremity Injury ED Provider: Jorden Magallanes Dx/Rx/DC Orders Clinical Impression: Hip dislocation, right, Diabetes mellitus type 2 in obese, Essential (primary) hypertension Instructions: ED Hip Replace Dislocation Reduc Prescriptions: New tramadol 50 mg tablet 50 mg PO Q6H PRN PRN (Reason: Pain) 3 Days Qty: 12 0RF No Action trazodone 50 MG tablet 100 mg PO QHS aspirin 81 MG tablet,delayed release (DR/EC) 81 mg PO QHS acetaminophen 500 MG tablet 500 - 1,000 mg PO Q6H PRN PRN (Reason: Pain Or Fever) calcium carbonate 600 MG tablet 600 mg PO BID atenolol 50 MG tablet 50 mg PO BID valsartan 160 MG tablet 160 mg PO QHS cholecalciferol (vitamin D3) 2,000 UNIT capsule 2,000 unit PO DAILY gabapentin 300 MG capsule 300 mg PO TID tramadol 50 mg tablet 25 - 50 mg PO TID PRN PRN (Reason: pain) meloxicam 7.5 mg tablet 7.5 mg PO DAILY escitalopram oxalate 20 mg tablet 20 mg PO DAILY rosuvastatin 10 mg tablet 5 mg PO QHS Ozempic 2 mg/dose (8 mg/3 mL) pen injector 2 mg subcut QWEEK Primary Care Provider: Nicholas Alonso Referrals: Nicholas Alonso MD [Primary Care Provider, Family Practice] Arsalan Vasquez MD [Med Staff - Active Staff, Orthopedics] - As soon as possible Activity Restrictions/Additional Instructions: Use your walker to assist you around the home. Be very careful with movements. Knee immobilizer until you see Dr. Reyes. Print Language: Mohawk Disposition Disposition: Home, Self Care
--- NOTE | 2025-07-10 09:55 | RAD_ITS ---
PROCEDURE: HIP, UNI W/ PELVIS 2-3 VIEWS 07/10/2025 REASON FOR EXAM: REDUCTION TECHNIQUE: Procedure Code: RAD Modality: DX Procedure: Two-view postreduction right hip Laterality: Right COMPARISON: Right hip and pelvis study earlier on 07/10/2025. RAD/HIP, UNI W/ Pelvis 2-3 Views IMPRESSION: Successful reduction of the right total hip prosthesis is seen. No fracture site is evident on the images obtained. Reading Location: [id number]
--- NOTE | 2025-07-10 12:15 | RAD_ITS ---
PROCEDURE: FEMUR MIN 2 VIEWS 07/10/2025 REASON FOR EXAM: PAIN/HIP DISLOCATION TECHNIQUE: Procedure Code: RADFEM Modality: DX Procedure: FEMUR MIN 2 VIEWS Laterality: Right COMPARISON: Earlier study FINDINGS: Bones: No acute fractures. Joints: Normal alignment at the hip and knee. ORIF of the hip and knee appears intact. Soft tissues: Soft tissues are unremarkable. RAD/Femur Min 2 Views IMPRESSION: NO ACUTE FRACTURE OR DISLOCATION. Reading Location[facility]
== END 2025-07-10 13:23 | disposition home or self-care (01) ==
PROVIDERS: Emergency Provider Emergency Medicine; PCP Family Medicine; Visit Provider Emergency Medicine
DX: T84.020A Dislocation of internal right hip prosthesis, initial encounter (principal); E11.9 Type 2 diabetes mellitus without complications; I10 Essential (primary) hypertension; Z96.641 Presence of right artificial hip joint; J45.909 Unspecified asthma, uncomplicated; Z79.82 Long term (current) use of aspirin; Z79.899 Other long term (current) drug therapy; F41.9 Anxiety disorder, unspecified; F32.A Depression, unspecified; Z79.85 Long-term (current) use of injectable non-insulin antidiabetic drugs; F17.210 Nicotine dependence, cigarettes, uncomplicated; E66.9 Obesity, unspecified; Y79.8 Miscellaneous orthopedic devices associated with adverse incidents, not elsewhere classified
CPT/HCPCS: 27252; 73502; 73552; 96374; 96375; 99152; 99285; A4216; J2405

== ENCOUNTER → 2025-07-16 | Outpatient (CLI) | payer MEDICARE, SELFPAY ==
[2025-07-16 10:12] LABS: Hematocrit 42.2 % (37-47); Hemoglobin 14.0 g/dL (12.0-15.0); Immature Granulocytes Count 0.050 X10^3/uL (0.0-0.0); Mean Corp Hgb Conc 33.2 g/dL (32-36); Mean Corpuscular Volume 92.1 fL (81-99); Mean Platelet Vol. 9.4 fl (6.2-12.0); NRBC Flagged by Analyzer 0 % (0-5); Platelet Count 218 K/mm3 (150-450); RBC Distribution Width CV 13.3 % (11.6-14.6); RBC Distribution Width SD 45.2 fl (35.1-43.9); Red Blood Count 4.58 M/mm3 (4.2-5.4); White Blood Count 7.7 K/mm3 (4.4-11.0)
[2025-07-16 12:54] LABS: CRP 5.14 mg/L (0.0-3.0)
== END | disposition home or self-care (01) ==
LOC: MTLAB 09:31
PROVIDERS: PCP Family Medicine; Referring Provider Specialist; Visit Provider Specialist
DX: S73.014A Posterior dislocation of right hip, initial encounter (principal); Z96.641 Presence of right artificial hip joint
CPT/HCPCS: 36415; 85025; 85652; 86140

== ENCOUNTER → 2025-07-30 | Outpatient (CLI) | payer MEDICARE, SELFPAY ==
[2025-07-30 16:14] LABS: Mucous, Urine 0 SEEN /hpf (<or=2+); Red Blood Cells-Urine 0 SEEN /hpf (0-5)
[2025-07-30 17:46] LABS: Hematocrit 41.8 % (37-47); Hemoglobin 13.8 g/dL (12.0-15.0); Immature Granulocytes Count 0.050 X10^3/uL (0.0-0.0); Mean Corp Hgb Conc 33.0 g/dL (32-36); Mean Corpuscular Volume 92.9 fL (81-99); Mean Platelet Vol. 10.0 fl (6.2-12.0); NRBC Flagged by Analyzer 0 % (0-5); Platelet Count 181 K/mm3 (150-450); RBC Distribution Width CV 13.5 % (11.6-14.6); RBC Distribution Width SD 45.9 fl (35.1-43.9); Red Blood Count 4.50 M/mm3 (4.2-5.4); White Blood Count 6.9 K/mm3 (4.4-11.0)
[2025-07-30 17:52] LABS: Color, Urine Yellow (Yellow); Glucose, Dipstick Normal (Normal); Ketone-Dipstick Negative (Negative); Leukocyte Esterase-Dipstick Negative /ul (Negative); Nitrite-Dipstick Negative (Negative); Occult Blood-Urine Negative /ul (Negative); Protein-Dipstick Negative (Negative); Specific Gravity, Urine 1.015 (1.002-1.030); Urine Bilirubin Dipstick Negative (Negative)
[2025-07-30 18:03] LABS: Creatinine, Urine (random) 72.00 mg/dL (28.00-217.00); Microalbumin,Random Urine < 12.0 mg/L (<20 mg/L)
[2025-07-30 18:25] LABS: AST(SGOT) 60 U/L (<=31); Alanine Aminotransfer ALT/SGPT 45 U/L (<=34); Albumin, Serum 4.0 g/dL (3.4-4.8); Alkaline Phosphatase 72 U/L (35-104); Anion Gap 9 (5-15); BUN 24 mg/dL (4-19); BUN/Creat Ratio 26.5 RATIO (10-20); Calcium,Total 10.1 mg/dL (7.6-11.0); Carbon Dioxide 28.0 mmol/L (21.0-32.0); Chloride 101 mmol/L (98-108); Globulin 2.8 g/dL (2.2-4.2); Glucose 194 mg/dL (70-99); Potassium 4.5 mmol/L (3.3-5.1); Vitamin D,25 Hydroxy 39.6 ng/mL (30-100)
[2025-07-30 18:32] LABS: Squamous Epithelial Cells - UA 0-5 SEEN /hpf (5-10)
== END | disposition home or self-care (01) ==
LOC: MTLAB 15:53
PROVIDERS: PCP Family Medicine; Referring Provider Family Medicine; Visit Provider Family Medicine
DX: E11.8 Type 2 diabetes mellitus with unspecified complications (principal); E55.9 Vitamin D deficiency, unspecified
CPT/HCPCS: 36415; 80053; 81001; 82043; 82306; 82570; 83036; 85025

== ENCOUNTER 2025-08-09 08:37 | Emergency (ER) | payer MEDICARE, SELFPAY ==
[2025-08-09 08:38] VITALS: BP 141/93; PULSE 84; RESP 20; TEMP 36.3; O2SAT 93; BMI 36.3
--- NOTE | 2025-08-09 08:54 | VDLE_ITS ---
Reason For Study Reason For Study: LLE Pain RIGHT LEFT CFV is compressible, spontaneous, phasic, competent GSV is normal. and demonstrates normal augmentation. CFV is compressible, spontaneous, phasic, competent, Procedure and demonstrates normal augmentation. This is a venous duplex using B-mode, color flow and FV is compressible, spontaneous, phasic, competent spectral Doppler. and demonstrates normal augmentation. Exam performed portable in ED. POP V is compressible, spontaneous, phasic, competent A preliminary report was called and/or faxed to and demonstrates normal augmentation. Jairo. T/P Trunk is compressible. PTV is compressible. LT PerV is compressible. VL/Venous Duplex US, Unilateral Interpretation Summary Deep veins of the left lower extremity are patent and compressible segmentally. There is no evidence of left lower extremity deep vein thrombosis. Valvular competence appears intact within the p roximal deep venous system on the left . The left great saphenous vein appears patent and compressible segmentally. The right common femoral vein is patent and compressible . Ordering Physician: Solo Gill Referring Physician: Nicholas Alonso Performed By: Raissa Price, TATIANNA, RVT
--- NOTE | 2025-08-09 08:55 | EX.ED.DYSGE1 ---
HPI History of Present Illness Chief Complaint: Other, Pain/Inj Narrative Narrative: Patient is a 80-year-old female with a past medical history of diabetes, atrial fibrillation, JEANNIE, hypertension who presented to the emergency department the chief complaint of left leg pain. Patient states that this been going on for about a week now and states that this is getting worse instead of better. Patient denies any history of blood clots denies any recent travel history. States that she is not on any blood thinning medications. [facility] Medical History Wears hearing aid Wears glasses Cancer Depression Diabetes Ambulates with cane Arthritis Back pain Dietary restriction History of diverticulitis Smoker CPAP (continuous positive airway pressure) dependence On home oxygen therapy Asthma Cardiology follow-up encounter History of stress test Hx of fracture of ankle Atrial fibrillation Anxiety and depression DDD (degenerative disc disease) Type 2 diabetes mellitus Obstructive sleep apnea Obesity Nicotine dependence Essential (primary) hypertension Home Medications ?Medication ?Instructions ?Recorded ?Last Taken ?Type acetaminophen 500 mg tablet 500 - 1,000 mg PO Q6H PRN PRN Pain 03/31/20 04/23/20 History Or Fever aspirin 81 mg tablet,delayed 81 mg PO QHS 03/31/20 07/09/25 History release atenolol 50 mg tablet 50 mg PO BID 03/31/20 07/10/25 History calcium carbonate 600 mg PO BID 03/31/20 07/09/25 History cholecalciferol (vitamin D3) 50 2,000 unit PO DAILY 03/31/20 07/09/25 History mcg (2,000 unit) capsule trazodone 50 mg tablet 100 mg PO QHS 03/31/20 07/09/25 History valsartan 160 mg tablet 160 mg PO QHS 03/31/20 07/09/25 History gabapentin 300 mg capsule 300 mg PO TID 04/15/20 07/10/25 History escitalopram oxalate 20 mg tablet 20 mg PO DAILY 07/10/25 07/10/25 History meloxicam 7.5 mg tablet 7.5 mg PO DAILY 07/10/25 07/10/25 History rosuvastatin 10 mg tablet 5 mg PO QHS 07/10/25 07/09/25 History semaglutide 2 mg/dose (8 mg/3 mL) 2 mg subcut QWEEK 07/10/25 07/05/25 History subcutaneous pen injector (Ozempic) tramadol 50 mg tablet 25 - 50 mg PO TID PRN PRN pain 07/10/25 Unknown History tramadol 50 mg tablet 50 mg PO Q6H PRN PRN Pain 3 days 07/10/25 Unknown Rx #12 tabs Allergy/AdvReac Type Severity Reaction Status Date / Time hydrocodone (From Vicodin) Allergy Itching Verified 08/09/25 08:40 oxycodone (From Percocet) Allergy Itching Verified 08/09/25 08:40 Penicillins Allergy Hives Verified 08/09/25 08:40 Family History Mother CVA (cerebral vascular accident) Surgical History History of left heart catheterization (04/10/20) History of cataract surgery History of open reduction and internal fixation (ORIF) procedure History of knee replacement History of total hip arthroplasty History of carpal tunnel release History of lumbar fusion History of cholecystectomy Social History Smoking Status: Current every day smoker tobacco type: cigarettes Tobacco: How many years used: 59 ROS ROS ED ROS Narrative Constitutional: Denies any fevers, chills, headaches Eyes: Denies double vision Cardiovascular: Denies chest pain Respiratory: Denies shortness of breath Abdomen: Denies nausea vomiting diarrhea Neurological: Denies any numbness, weakness, tingling Musculoskeletal: Denies any pain radiating from her back down her leg Skin: Denies any rashes or lesions EXAM Physical Exam Narrative Exam Narrative: General: Patient was lying in bed resting comfortably did not appear to be in acute distress Head: Atraumatic, normocephalic Eyes: PERRL bilaterally, EOMI bilaterally, no conjunctival injection noted Neck: Soft, supple, trachea midline Cardiovascular: Regular rate and rhythm Respiratory: Clear to auscultation bilaterally Abdomen: Soft, nondistended, nontender to palpation Musculoskeletal: Compartments are soft and compressible in the left lower extremity Extremities: DP pulses +2/4 in the left lower extremity, +4/5 strength noted in the bilateral upper and lower extremities Neurological: Patient following commands knew that she was at [facility] year is 2024 sensation grossly intact Skin: Warm, dry, intact no rashes or lesions noted Const Vital Signs: 08/09/25 08:38 08/09/25 10:37 08/09/25 11:02 Temperature 97.4 F L Temperature Source Oral Pulse Rate 84 87 Respiratory Rate 20 H Respiratory Effort Normal Non-Labored Respiratory Pattern Normal Blood Pressure 141/93 H 139/81 H Blood Pressure Mean 109 100 Pulse Ox 93 95 Oxygen Delivery Method Room Air Room Air MDM MDM MDM Narrative Medical decision making narrative: Patient is a 80-year-old female who presented to the emergency department chief complaint of left leg pain. On the differential diagnose includes but not limited to pathological fracture although have low suspicion for this, DVT, superficial venous thrombosis. Once workup is obtained reviewed she will be reevaluated. 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 Patient's ultrasound did not show any evidence of blood clots. Patient given a dose of Toradol here in the emergency department. She was advised to follow-up with her doctor in outpatient setting and return with worsening symptoms or any concerns. [id number] glucose was noted to be 151. She was advised to rotate Tylenol and ibuprofen [id number] follow-up with her doctor in outpatient having return with worsening symptoms or any concerns. All question concerns answered she was discharged home in stable condition Lab Data Labs: Laboratory Results - last 24 hr 08/09/25 10:10 POC Glucose 151 H Radiography Diagnostic Testing: Clinical Impression(s) from Imaging Studies Tibia/Fibula X-Ray 08/09/25 09:33 IMPRESSION: Status post tibiotalar fusion. Other findings as noted. No evidence of acute injury. Reading Location: [id number] Discharge Plan Triage Chief Complaint: Other, Pain/Inj ED Provider: Solo Gill Dx/Rx/DC Orders Clinical Impression: Essential (primary) hypertension, Left leg pain, Diabetes mellitus type 2 in obese Prescriptions: No Action trazodone 50 MG tablet 100 mg PO QHS aspirin 81 MG tablet,delayed release (DR/EC) 81 mg PO QHS acetaminophen 500 MG tablet 500 - 1,000 mg PO Q6H PRN PRN (Reason: Pain Or Fever) calcium carbonate 600 MG tablet 600 mg PO BID atenolol 50 MG tablet 50 mg PO BID valsartan 160 MG tablet 160 mg PO QHS cholecalciferol (vitamin D3) 2,000 UNIT capsule 2,000 unit PO DAILY gabapentin 300 MG capsule 300 mg PO TID tramadol 50 mg tablet 25 - 50 mg PO TID PRN PRN (Reason: pain) meloxicam 7.5 mg tablet 7.5 mg PO DAILY escitalopram oxalate 20 mg tablet 20 mg PO DAILY rosuvastatin 10 mg tablet 5 mg PO QHS Ozempic 2 mg/dose (8 mg/3 mL) pen injector 2 mg subcut QWEEK tramadol 50 mg tablet 50 mg PO Q6H PRN PRN (Reason: Pain) 3 Days Qty: 12 0RF Primary Care Provider: Nicholas Alonso Referrals: Nicholas Alonso MD [Primary Care Provider, Family Practice] Activity Restrictions/Additional Instructions: Your x-ray did not show any acute findings today your ultrasound did not show any evidence of blood clots. Rotate Tylenol and ibuprofen [id number] for pain control when you do this you can take something every 3 hours for pain max dose Tylenol in 24 hours 4000 mg max dose of ibuprofen in 24 hours 3200 mg. Return with worsening symptoms or any other concerns otherwise follow-up with your doctor in the outpatient setting. Print Language: Montserratian Disposition Disposition: Home, Self Care
--- NOTE | 2025-08-09 09:33 | RAD_ITS ---
PROCEDURE: TIBIA FIBULA 2 VIEWS 08/09/2025 REASON FOR EXAM: PAIN TECHNIQUE: Procedure Code: RADTF Modality: DX Procedure: TIBIA FIBULA 2 VIEWS COMPARISON: None FINDINGS: The tibia and fibula are intact. There has been fusion of the tibiotalar joint there is severe arthritis of the subtalar joint. The knee joint is grossly unremarkable. There are no significant soft tissue abnormalities evident. RAD/Tibia & Fibula 2 Views IMPRESSION: Status post tibiotalar fusion. Other findings as noted. No evidence of acute injury. Reading Location: [id number]
--- OUTSIDE RECORDS SUMMARY | 2025-08-09 10:09 | XMS RPT_ITS | CCD ---
Author Organization [facility] CliniSynv Care Team Providers Care Yoker Machine Operator Name Role Phone PASCUAL SKY Attending Unavailable LORENA LEDESMA Consulting Unavailable PASCUAL SKY Admitting Unavailable PASCUAL SKY Primary Care Unavailable PROVIDER, UNKNOWN Consulting Unavailable PROVIDER, UNKNOWN Consulting Unavailable PROVIDER, UNKNOWN Consulting Unavailable TERRANCE ALONSO Consulting Unavailable PASCUAL SKY Admitting Unavailable ASYA, PASCUAL Venegas Primary Care Unavailable PASCUAL SKY Attending Unavailable PROVIDER, UNKNOWN Consulting Unavailable CYNTHIA KEYES Admitting Unavailable CYNTHIA KEYES Primary Care Unavailable CYNTHIA KEYES Attending Unavailable LORENA LEDESMA Consulting Unavailable PROVIDER, UNKNOWN Consulting Unavailable PROVIDER, UNKNOWN Consulting Unavailable PROVIDER, UNKNOWN Consulting Unavailable Terrance Alonso Primary Care Provider CHERYL JOYA, TERRANCE Primary Care Physician NATALIO JOYA, DR ALEX Aldana Attending Unavailab Luz JOYA, TERRANCE Primary Care Unavailable NATALIO JOYA, DR ALEX Aldana Referring Unavailab sonja LANCE MD, DR ALEX Aldana Admitting Unavailab sonja ALONSO MD, TERRANCE Primary Care Unavailable EMELINA ANTONIO, JERRI Wong Consulting Semaj ANTONIO, JERRI Wong Attending Terrance Mayers Primary Care Provider [phone] Terrance Alonso MD Primary Care Provider Terrance Alonso MD Primary Care Provider TERRANCE ALONSO Primary Care Unavailable GERMAIN DE LUNA Consulting Unavailable TATIANA SUTHERLAND Attending Unavailab TATIANA Knox Admitting Unavailab TERRANCE Escobar Primary Care Unavailable TERRANCE ALONSO Primary Care Unavailable CHRISTIANO VILLAFANA Attending Unavailable JENS ACEVEDO Referring Unavailable NESTOR RUBY Referring Unavailable TERRANCE ALONSO Primary Care Unavailable TERRANCE ALONSO Primary Care Unavailable JENS ACEVEDO Attending Unavailable ORIN CASAS Attending Unavailable HENRY SAMUELS Referring Unavailab TERRANCE Escobar Primary Care Unavailable TATIANA SUTHERLAND Attending Unavailable ORIN CASAS Referring Unavailable TERRANCE ALONSO Primary Care Unavailable TATIANA SUTHERLAND Referring Unavailable TERRANCE ALONSO Primary Care Unavailable NESTOR RUBY Referring Unavailable TERRANCE ALONSO Primary Care Unavailable TERRANCE ALONSO Primary Care Unavailable NESTOR RUBY Referring Unavailable TERRANCE ALONSO Primary Care Unavailable NESTOR RUBY Referring Unavailable TERRANCE ALONSO Primary Care Unavailable NESTOR RUBY Referring Unavailable CHRISTIANO VILLAFANA Attending Unavailable TERRANCE ALONSO Primary Care Unavailable YARELIS, JENS Referring Unavailable CHRISTIANO VILLAFANA Attending Unavailable TERRANCE ALONSO Primary Care Unavailable YARELIS JENS Referring Unavailable CHRISTIANO VILLAFANA Attending Unavailable TERRANCE ALONSO Primary Care Unavailable YARELIS JENS Referring Unavailable TERRANCE ALONSO Primary Care Unavailable CHRISTIANO VILLAFANA Attending Unavailable YARELIS JENS Referring Unavailable TERRANCE ALONSO Primary Care Unavailable CHRISTIANO VILLAFANA Attending Unavailable YARELIS JENS Referring Unavailable TERRANCE ALONSO Primary Care Unavailable TATIANA SUTHERLAND Attending Unavailab TATIANA Knox Attending Unavailab TERRANCE Escobar Primary Care Unavailable SELF Referring Unavailable TATIANA SUTHERLAND Attending Unavailab TERRANCE Escobar Primary Care Unavailable Dr. Terrance Alonso MD Primary Care Provider [phone] Dr. Terrance Alonso MD Attending Provider Dr. Terrance Alonso MD Referring Provider Dr. Terrance Alonso MD Primary Care Physician Dr. Terrance Alonso MD Attending Physician Allyssaorr CROCHETERMurray Hinson Attending Physician [facility] CR[facility]TER-CMurray Referring Provider Terrance Alonso Attending Unavailable Terrance Alonso Primary Care Unavailable Patrick Tejeda Attending Unavailable Schinner, Terrance E Primary Care Unavailable SchTerrance pate E Attending Unavailable SchTerrance pate E Referring Unavailable SchinTerrance ruiz E Primary Care Unavailable McMorrow CROCHETER, Murray Attending Unavailable McMorrow CROCHETER, Murray Referring Unavailable Schinsara, Terrance E Primary Care Unavailable Schinsara, Terrance E Attending Unavailable Schinner, Terrance E Referring Unavailable Schinner, Terrance E Primary Care Unavailable Charito Mclaughlin Referring Unavailable Schinsara, Terrance Venegas Primary Care Unavailable Charito Mclaughlin Attending Unavailable Terrance Alonso Attending Unavailable Terrance Alonso E Referring Unavailable Schinsara, Terrance E Primary Care Unavailable SchTerrance pate E Attending Unavailable Terrance Alonso E Referring Unavailable Schinsara, Terrance E Primary Care Unavailable Allergies Allergy Classification Reported Allergen(s) Allergy Type Date of Onset Reaction(s) Facility Acetaminophen / HYDROcodone (3 sources) Acetaminophen / HYDROcodone Drug Allergy 2 [facility] [place] Acetaminophen / oxyCODONE (3 sources) Acetaminophen / oxyCODONE Drug Allergy 2 [facility] Penicillins (antibiotic) (3 sources) Penicillins Drug Allergy 2 [facility] [place] (1 source) Penicillins Drug allergy (disorder) [facility] Repository (20 sources) Acetaminophen / HYDROcodone; Translations: [acetaminophen-hyd rocodone] Drug Allergy 2 [facility] [place] Comment on above: usually takes benadr yl for itching (20 sources) Acetaminophen / oxyCODONE; Translations: [acetaminophen-oxy codone] Drug Allergy 2 [facility] Comment on above: usually takes benadr yl for itching (5 sources) Penicillins; Translations: [PENICILLINS] Drug Allergy 1 [facility] [place] (15 sources) [facility] ox[facility] Drug Allergy 1 [facility] (14 sources) Penicillins Allergy to substance 1 [facility] (2 sources) Penicillin; Translations: [penicillin] Drug Allergy [facility] Comment on above: patient does not dorys e benadryl, she never takes penicillin usaually will take b enadryl with it (20 sources) Penicillins Drug Allergy 2 [facility] [place] (1 source) HYDROcodone Drug Allergy 3 [facility] (1 source) oxyCODONE Drug Allergy 3 [facility] (1 source) Penicillins Drug allergy (disorder) 3 [facility] Rep[facility] Medications Current Medications Medication Drug Class(es) Dates Sig (Normalized) Sig (Original) acetaminophen 1000 mg oral tablet (16 sources) Start: 01-12-2023 End: 01-25-2023 take 1 tablet by mouth once daily Tylenol Dose : 1,000 mg = 2 tab(s), Oral, TID, not to exceed 3000 mg/day, 0 Refill(s) Start Date: 01/12/23 Stop Date: 01/25/23 Status: Ordered Start: 03-31-2020 take 500-1000 mg by mouth ever y six hours as needed for pain acetaminophen 325 mg / oxyCODONE hydrochloride 5 mg oral tablet (5 sources) Opioid Agonist Start: 03-02-2024 End: 03-09-2024 take 1-2 tablets by mouth every four hours as needed for pain oxyCODONE-acetaminophen (PERCOCET) 5-325 mg tablet Indications: S/P reverse total shoulder arthroplasty, right Take 1-2 tablets by mouth every 4 hours as needed for pain for up to 7 days. 28 tablet 0 03/02/2024 03/09/2024 Active Start: 02-20-2024 End: 02-27-2024 take 1-2 tablets by mouth every four hours as needed for pain oxyCODONE-acetaminophen (PERCOCET) 5-325 mg tablet Indications: S/P reverse total shoulder arthroplasty, right Take 1-2 tablets by mouth every 4 hours as needed for pain for up to 7 days. 28 tablet 0 02/20/2024 02/27/2024 Active aspirin 81 mg oral tablet (20 sources) Platelet Aggregation Inhibitor, Nonsteroidal Anti-inflammatory Drug Start: 01-12-2023 End: 02-10-2023 take 1 tablet by mouth twice daily at mealtime aspirin Dose : 81 mg = 1 tab(s), Oral, BIDM, Take 81 mg aspirin twice daily with food for 4 weeks postoperatively for DVT prophylaxis., 0 Refill(s) Start Date: 01/12/23 Stop Date: 02/10/23 Status: Ordered Start: 03-31-2020 take 1 tablet by mouth at bedt carlos a Comment on above: Take 81 mg by mouth once daily. atenolol 50 mg oral tablet (20 sources) beta-Adrenergic Gerardo Start: 05-19-20 16 take 1 tablet by mouth twice daily 168 hr buprenorphine 0.015 mg/hr transdermal system (18 sources) Partial Opioid Agonist Start: 01-17-20 24 buprenorphine (BUTRANS) 15 mcg/hour patch Apply 1 patch to skin every 7 days. Remove old patch. 01/17/2024 Active 12 hr buPROPion hydrochloride 150 mg extended release oral tablet (20 sources) Aminoketone Start: 11-30-19 take 1 tablet by mouth every twelve hours buPROPion SR (WELLBUTRIN SR) 150 mg 12 hr tablet Take 150 mg by mouth every 12 hours. 11/30/2023 Active Calcium (2 sources) Phosphate Binder, Calcium Start: 07-02-20 take 1 tablet by mouth twice daily at mealtime Calcium 600+D Dose = 1 tab(s), PO, BID, Take with food, 0 Refill(s), current med (Hx) Start Date: 07/02/10 Status: Ordered calcium carbonate 1500 mg oral tablet (20 sources) Start: 03-31-20 20 take 1 tablet by mouth once daily calcium carbonate (CALTRATE) 600 mg calcium (1,500 mg) tab Take 600 mg by mouth once daily. 03/31/2020 Active Start: 03-31-2020 take 1 tablet by mouth twice d aily calcium polycarbophil 625 mg oral tablet (18 sources) take 1 tablet by mouth once daily calcium polycarbophil (FIBERCON) 625 mg tablet Take 625 mg by mouth once daily. Active cholecalciferol 0.05 mg oral capsule (15 sources) Vitamin D Start: 020 take 1 capsule by mouth once daily dapagliflozin 10 mg oral tablet (20 sources) Sodium-Glucose Cotransporter 2 Inhibitor Start: 024 take 1 tablet by mouth once FARXIGA 10 mg tablet Take 1 tablet by mouth every afternoon. 12/06/2023 Active dicyclomine hydrochloride 10 mg oral capsule (13 sources) Anticholinergic Start: 023 take 2 capsules by mouth every six hours as needed Start: 08-26-2022 take 20 mg by mouth every six hours as needed Dicyclomine Active 20 MG PO EVERY 6 HOURS NEEDED August 26, 2022 9:40pm docusate sodium 100 mg oral capsule (13 sources) Start: 02-20-2024 take 1 capsule by mouth twice daily docusate sodium (COLACE) 100 mg capsule Take 1 capsule by mouth two times a day. 40 capsule 02/20/2024 Active docusate sodium 50 mg / sennosides, fci 8.6 mg oral tablet (1 source) Start: 01-12-2023 End: 01-15-2023 take 1 tablet by mouth twice daily Senokot S 50 mg-8.6 mg oral tablet Dose = 2 tab(s), Oral, BID, Take until first bowel movement, then as needed, X 3 day(s), # 12 tab(s), 0 Refill(s), Pharmacy: [id number], 152.4, cm, 01/11/23 11:42:00 EDT, Height Start Date: 01/12/23 Stop Date: 01/15/23 Status: Ordered doxycycline monohydrate 100 mg oral tablet (3 sources) Tetracycline -class Drug Start: 03-27-2023 End: 04-03-2023 take 1 tablet by mouth twice daily doxycycline monohydrate 100 mg tablet Indications: COPD with exacerbation (HCC) Take 1 tablet by mouth twice daily for 7 days. 14 tablet 0 03/27/2023 04/03/2023 Active Start: 11-10-2021 End: 11-20-2021 take 1 tablet by mouth twice daily doxycycline (VIBRA-TABS) 100 mg tablet Indications: Infected cat bite, initial encounter Take 1 tablet by mouth twice daily for 10 days. 20 tablet 0 11/10/2021 11/20/2021 Active Comment on above: Take 1 tablet by elizabeth th twice daily for 10 days. Take 1 tablet by elizabeth th twice daily for 7 days. escitalopram 10 mg oral tablet (20 sources) Serotonin Reuptake Inhibitor Start: 11-06-2021 escitalopram oxalate (LEXAPRO) 10 mg tablet 11/06/2021 Active Start: 03-31-2020 take 1 tablet by mouth at bedt carlos a gabapentin 300 mg oral capsule (20 sources) Anti-epileptic Agent Start: 04-15-2020 take 1 capsule by mouth three times daily Comment on above: Take 300 mg by mouth three times daily. ibuprofen 600 mg oral tablet (15 sources) Nonsteroidal Anti-inflammatory Drug Start: 03-31-2020 lutein 6 mg oral capsule (15 sources) Start: 03-31-2020 take 1 capsule by mouth once daily meloxicam 7.5 mg oral tablet (20 sources) Nonsteroidal Anti-inflammatory Drug Start: 12-20-2022 meloxicam 7.5 mg oral tablet Dose : 7.5 mg = 1 tab(s), Oral, qDay, # 30 tab(s), 0 Refill(s) Start Date: 12/20/22 Status: Ordered metroNIDAZOLE 500 mg oral tablet (1 source) Nitroimidazole Antimicrobial Start: 11-10-2021 End: 11-20-2021 take 1 tablet by mouth three times daily metroNIDAZOLE (FLAGYL) 500 mg tablet Indications: Infected cat bite, initial encounter Take 1 tablet by mouth three times daily for 10 days. 30 tablet 0 11/10/2021 11/20/2021 Active Comment on above: Take 1 tablet by [facility] three times daily for 10 days. mupirocin 0.02 mg/mg topical ointment (6 sources) RNA Synthetase Inhibitor Antibacterial Start: 02-10-2024 End: 02-26-2024 mupirocin (BACTROBAN) 2 % ointment Indications: Pre-operative examination Apply 0.5 inch with cotton swab (Q-tip) to each nostril in the morning and evening for 5 days prior to and including day of surgery. 22 g 0 02/10/2024 02/26/2024 Active ondansetron 4 mg oral tablet (13 sources) Serotonin-3 Receptor Antagonist Start: 02-20-2024 take 1 tablet by mouth every eight hours as needed ondansetron (ZOFRAN) 4 mg tablet Take 1 tablet by mouth every 8 hours as needed. 10 tablet 02/20/2024 Active predniSONE 10 mg oral tablet (2 sources) Start: 03-27-2023 End: 04-05-2023 predniSONE (DELTASONE) 10 mg tablet Indications: COPD with exacerbation (HCC) Take 4 tabs daily for 3 days, then 2 tabs daily for 3 days, then 1 tab daily for 3 days with food. 21 tablet 0 03/27/2023 04/05/2023 Active Comment on above: Take 4 tabs daily fo r 3 days, then 2 tabs daily for 3 days, then 1 tab daily for 3 days with food. psyllium 3500 mg powder for oral suspension (2 sources) Start: 12-20-2022 take 2.4 doses by mouth twice daily as needed for constipation psyllium 2.4 g/3.7 g oral powder for reconstitution Dose : 2.4 gram(s) =, Oral, BID, PRN PRN as needed for constipation, dissolve in 8 oz of fluid, # 30 packet(s), 0 Refill(s) Start Date: 12/20/22 Status: Ordered rosuvastatin calcium 10 mg oral tablet (20 sources) HMG-CoA Reductase Inhibitor Start: 12-20-2022 rosuvastatin 10 mg oral tablet Dose : 10 mg = 1 tab(s), Oral, qDay, 0 Refill(s) Start Date: 12/20/22 Status: Ordered traMADol hydrochloride 50 mg oral tablet (20 sources) Opioid Agonist Start: 12-20-2023 take 1 tablet by mouth every six hours as needed traMADol (ULTRAM) 50 mg tablet Take 50 mg by mouth every 6 hours as needed for pain. 12/20/2023 Active Start: 01-12-2023 End: 01-19-2023 take 1-2 tablets by mouth every six hours as needed for pain Ultram 50 mg oral tablet See Instructions, PRN as needed for pain, 1-2 tab(s) Oral q6h, # 36 tab(s), 0 Refill(s), 01/19/23 7:08:00 EDT, Pharmacy: [id number], S/P total left hip arthroplasty, 152.4, cm, 01/11/23 11:42:00 EDT, Height, 77.5 Start Date: 01/12/23 Stop Date: 01/19/23 Status: Ordered traZODone hydrochloride 50 mg oral tablet (20 sources) Serotonin Reuptake Inhibitor Start: 12-20-2022 traZODone 50 mg oral tablet Dose : 50 mg = 1 tab(s), Oral, qHS, # 30 tab(s), 0 Refill(s) Start Date: 12/20/22 Status: Ordered Start: 03-31-2020 take 2 tablets by mo uth at bedtime Start: 03-31-2020 take 100 mg by mouth at bedtim e Trazodone Active 100 MG PO AT BEDTIME March 31, 2020 12:00am Comment on above: TAKE 2 TABLETS BY [facility] EVERY DAY AT BEDTIME valsartan 160 mg oral tablet (20 sources) Angiotensin 2 Receptor Gerardo Start: 03-31-2020 take 1 tablet by mouth at bedtime Vitamin D3 (2 sources) Start: 12-20-2022 Vitamin D3 Dose : 100 mcg = 1 tab(s), Oral, Daily, 0 Refill(s) Start Date: 12/20/22 Status: Ordered Completed/Discontinued Medications Medication Drug Class(es) Dates Sig (Normalized) Sig (Original) albuterol 0.83 mg/ml inhalation solution (19 sources) beta2-Adrenergic Agonist Start: 04-01-2023 End: 04-01-2023 albuterol 2.5 mg /3 mL (0.083 %) 2.5 mg (PROVENTIL) Start: 03-27-2023 End: 02-10-2024 take 2 puff(s) by inhalation every four hours as needed albuterol HFA (PROAIR HFA) 90 mcg/actuation inhaler Indications: COPD with exacerbation (HCC) Inhale 2 Puffs as instructed every 4 hours as needed. 1 Each 03/27/2023 02/10/2024 Discontinued Start: 03-27-2023 End: 03-27-2023 albuterol 2.5 mg /3 mL (0.08 3 %) 2.5 mg (PROVENTIL) Start: 08-04-2021 End: 02-10-2024 take 2 puff(s) by inhalation every four hours as needed albuterol HFA (PROVENTIL HFA, VENTOLIN HFA) 90 mcg/actuation inhaler INHALE 2 (TWO) PUFFS EVERY 4 HOURS NEEDED 08/04/2021 02/10/2024 Discontinued Comment on above: INHALE 2 (TWO) PUFFS EVERY 4 HOURS NEEDED Inhale 2 Puffs as in structed every 4 hours as needed. amoxicillin 875 mg / clavulanate 125 mg oral tablet (2 sources) Penicillin-class Antibacterial Start: 04-01-20 End: 04-08-20 take 1 tablet by mouth twice daily amoxicillin-clavula fifi acid (AUGMENTIN) 875-125 mg per tablet Indications: COPD (chronic obstructive pulmonary disease) with acute bronchitis (HCC) (HCC) Take 1 tablet by mouth twice daily for 7 days. 14 tablet 04/01/2023 04/08/2023 Comment on above: Take 1 tablet by elizabeth th twice daily for 7 days. benzonatate 100 mg oral capsule (7 sources) Non-narcotic Antitussive Start: 04-01-20 End: 02-10-20 take 2 capsules by mouth three times daily as needed benzonatate (TESSALON PERLE) 100 mg capsule Indications: COPD (chronic obstructive pulmonary disease) with acute bronchitis (HCC) (HCC) Take 2 capsules by mouth three times daily as needed. 30 capsule 04/01/2023 02/10/2024 Discontinued Comment on above: Take 2 capsules by m out three times daily as needed. diclofenac sodium 0.01 mg/mg topical gel (9 sources) Nonsteroidal Anti-inflammatory Drug Start: 10-14-19 End: 02-10-20 apply 2 g topically three times daily diclofenac (VOLTAREN) 1 % topical gel Apply 2 gm to affected area 3 times a day 10/13/2021 02/10/2024 Discontinued Comment on above: Apply 2 gm to affect ed area 3 times a day metFORMIN hydrochloride 500 mg oral tablet (20 sources) Biguanide Start: 11-07-19 End: 02-10-20 metFORMIN (GLUCOPHAGE) 500 mg tablet 11/06/2021 02/10/2024 Discontinued Start: 03-31-2020 take 1 tablet by mouth once da evelyn nabumetone 750 mg oral tablet (9 sources) Nonsteroidal Anti-inflammatory Drug Start: 09-29-2021 End: 02-10-2024 take 1 tablet by mouth twice daily at mealtime nabumetone (RELAFEN) 750 mg tablet Take 750 mg by mouth twice daily. TAKE WITH FOOD. 09/29/2021 02/10/2024 Discontinued Comment on above: Take 750 mg by mouth twice daily. TAKE W ITH FOOD. Problems Active Problems Problem Classification Problem Date Documented Date Episodic/Chronic Abdominal pain (13 sources) Epigastric pain; Translations: [Epigastric pain] 08-26-2022 Episodic Allergic reactions (2 sources) Contact dermatitis due to poison rafael 05-19-2016 Episodic Comment on above: two small areas on r ight iner arm, to call dr anguiano for advice Asthma (18 sources) Mild intermittent asthma; Translations: [Mild intermittent asthma, uncomplicated] Onset: 04-11-2023 02-10-2024 Chronic Cardiac dysrhythmias (1 source) Unspecified atrial fibrillation; Translations: [Unspecified atrial fibrillation] Onset: 01-11-2023 Chronic Cardiac dysrhythmias (2 sources) Palpitations 09-19-2013 Episodic Chronic obstructive pulmonary disease and bronchiectasis (20 sources) Acute exacerbation of chronic obstructive airways disease; Translations: [Chronic obstructive pulmonary disease with (acute) exacerbation] Onset: 02-10-2024 03-27-2023 Chronic Complications of surgical procedures or medical care (15 sources) 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; Translations: [Pseudarthrosis after fusion or arthrodesis] 04-24-2020 Episodic Conduction disorders (19 sources) Right bundle branch block; Translations: [Unspecified right bundle-branch block] Onset: 02-10-2024 02-10-2024 Chronic Diabetes mellitus with complications (17 sources) Type 2 diabetes mellitus in obese; Translations: [Type 2 diabetes mellitus with other specified complication] Onset: 01-15-2025 04-24-2020 Chronic Diabetes mellitus without complication (20 sources) Type 2 diabetes mellitus without complication; Translations: [Type 2 diabetes mellitus without complications] Onset: 01-11-2023 Chronic Disorders of lipid metabolism (19 sources) Mixed hyperlipidemia; Translations: [Mixed hyperlipidemia] Onset: 02-10-2024 02-10-2024 Chronic E Codes: Natural/environment (1 source) Cat bite - wound; Translations: [Bitten by cat, initial encounter] Episodic Essential hypertension (20 sources) Essential hypertension; Translations: [Essential (primary) hypertension] Onset: 01-11-2023 03-11-2021 Chronic Comment on above: controlled with med Mood disorders (20 sources) Depressive disorder; Translations: [Depressive disorder] Onset: 02-10-2024 05-19-2016 Chronic Osteoarthritis (20 sources) Primary osteoarthritis of ankle; Translations: [Primary osteoarthritis, left ankle and foot] Onset: 01-11-2023 04-24-2020 Chronic Osteoporosis (3 sources) Osteoporosis; Translations: [Age-related osteoporosis without current pathological fracture] Onset: 05-16-2025 09-19-2013 Chronic Other and ill-defined heart disease (14 sources) Diastolic dysfunction; Translations: [Other ill-defined heart diseases] Onset: 02-17-2024 02-17-2024 Chronic Other and unspecified benign neoplasm (2 sources) History of polyp of colon 05-19-2016 Episodic Other connective tissue disease (2 sources) Hip joint prosthesis present; Translations: [Presence of unspecified artificial hip joint] Onset: 01-11-2023 Chronic Other connective tissue disease (18 sources) History of reverse prosthetic total arthroplasty of right shoulder; Translations: [Presence of right artificial shoulder joint] Onset: 02-20-2024 02-20-2024 Chronic Other connective tissue disease (2 sources) Presence of right artificial shoulder joint; Translations: [S/P reverse total shoulder arthroplasty, right] Onset: 02-20-2024 Chronic Other connective tissue disease (2 sources) Peroneal tendinitis 05-19-2016 Episodic Comment on above: left ankle Other connective tissue disease (3 sources) Full thickness rotator cuff tear; Translations: [Complete rotator cuff tear or rupture of right shoulder, not specified as traumatic] 12-23-2023 Episodic Other ear and sense organ disorders (2 sources) Hearing loss 09-19-2013 Chronic Comment on above: MILD Other injuries and conditions due to external causes (2 sources) At risk for falls 05-19-2016 Episodic Other liver diseases (13 sources) High lipase level in serum; Translations: [Abnormal levels of other serum enzymes] 08-26-2022 Episodic Other lower respiratory disease (1 source) Cough; Translations: [Acute cough] 04-01-2023 Episodic Other lower respiratory disease (1 source) Wheezing; Translations: [Wheezing] 04-01-2023 Episodic Other nervous system disorders (2 sources) Narcolepsy 09-19-2013 Chronic Other nervous system disorders (2 sources) Neuropathy 02-06-2016 Chronic Comment on above: TOES Other nervous system disorders (1 source) Other chronic pain; Translations: [Chronic right shoulder pain] Onset: 03-02-2024 Chronic Other nervous system disorders (2 sources) Unsteady when walking 05-19-2016 Episodic Other non-traumatic joint disorders (3 sources) Chronic pain of right upper limb; Translations: [Pain in right shoulder] 02-24-2024 Episodic Other non-traumatic joint disorders (4 sources) Pain in right shoulder; Translations: [Pain in joint, shoulder region] Onset: 03-02-2024 03-14-2024 Episodic Other non-traumatic joint disorders (1 source) Pain in right hip; Translations: [Pain in right hip] Onset: 06-24-2025 Episodic Other nutritional; endocrine; and metabolic disorders (2 sources) Obesity 09-20-2013 Chronic Other nutritional; endocrine; and metabolic disorders (19 sources) Severe obesity; Translations: [Morbid (severe) obesity due to excess calories] Onset: 02-10-2024 02-10-2024 Chronic Pulmonary heart disease (14 sources) Pulmonary hypertension; Translations: [Pulmonary hypertension, unspecified] Onset: 02-17-2024 02-17-2024 Chronic Residual codes; unclassified (19 sources) Obstructive sleep apnea syndrome; Translations: [Obstructive sleep apnea (adult) (pediatric)] Onset: 02-10-2024 02-10-2024 Chronic Spondylosis; intervertebral disc disorders; other back problems (2 sources) Spinal stenosis 05-19-2016 Episodic Substance-related disorders (17 sources) Nicotine dependence; Translations: [Nicotine dependence, unspecified, uncomplicated] 04-24-2020 Chronic Unclassified (2 sources) Eye glasses, device (physical object) 09-19-2013 Unclassified (2 sources) Hearing aid, device (physical object) 05-19-2016 Past or Other Problems Problem Classification Problem Date Documented Date Episodic/Chronic Other and unspecified benign neoplasm (1 source) Personal history of colonic polyps; Translations: [Personal history of colonic polyps] Onset: 01-11-2020 Episodic Other connective tissue disease (1 source) Complete rotator cuff tear or rupture of right shoulder, not specified as traumatic; Translations: [Complete tear of right rotator cuff, unspecified whether traumatic] Onset: 01-20-2024 Episodic Other lower respiratory disease (15 sources) Hypoxemia; Translations: [Hypoxemia] Onset: 02-15-2024 02-15-2024 Episodic Other non-traumatic joint disorders (1 source) Pain in right knee; Translations: [Pain in right knee] Onset: 08-29-2024 Episodic Other screening for suspected conditions (not mental disorders or infectious disease) (20 sources) Electrocardiogram abnormal; Translations: [Abnormal electrocardiogram [ECG] [EKG]] Onset: 02-10-2024 02-10-2024 Episodic Other skin disorders (1 source) Generalized hyperhidrosis; Translations: [Generalized hyperhidrosis] Onset: 08-28-2024 Episodic Pneumonia (except that caused by tuberculosis or sexually transmitted disease) (1 source) Unspecified bacterial pneumonia; Translations: [Unspecified bacterial pneumonia] Onset: 09-27-2024 Episodic Screening and history of mental health and substance abuse codes (20 sources) Tobacco use and exposure - finding; Translations: [Personal history of nicotine dependence] Onset: 06-10-2022 02-10-2024 Episodic Results Test Name Value Interpretation Reference Range Facility Emergency Department Summary on 06-16-2025 Emergency Department Summary [facility] Medical Records Department [address] [place] [address] Emergency Department Summary 06/16/25 MR#: [id number] Acct: [id number] Name: SUSAN CHANDLER Rep #: [id number] : 1945 80 From: Patrick Tejeda DO PCP: Dr. Terrance Alonso MD Status:DEP ER Location: ED HPI History of Present Illness HPI Narrative: Patient presents right hip pain that began today. Patient states she was bending over putting on her clothes when she felt her right hip pop out. Patient states her pain is sharp. Patient states it is worse with any movement. Patient denies any paresthesias or weakness. Patient denies any fall. Patient denies any radiation of the pain. Patient states nothing makes the pain better. Chief Complaint: Lower Extremity Injury Informant: patient Onset/Context/Timing Onset: Today Context: Sudden Onset Timing: Continuous Quality of Pain: Sharp Location: Right hip Worsened by: Movement Relieved by: Nothing Associated Symptoms Associated Symptoms: Negative for Parasthesia, Weakness or Loss of Funtion [facility] Medical History Wears hearing aid Wears glasses Cancer Depression Diabetes Ambulates with cane Arthritis Back pain Dietary restriction History of diverticulitis Smoker CPAP (continuous positive airway pressure) dependence On home oxygen therapy Asthma Cardiology follow-up encounter History of stress test Hx of fracture of ankle Atrial fibrillation Anxiety and depression DDD (degenerative disc disease) Type 2 diabetes mellitus Obstructive sleep apnea Obesity Nicotine dependence Essential (primary) hypertension Home Medications ???Medication ???Instructions ???Recorded ???Last Taken ???Type acetaminophen 500 mg tablet 500 - 1,000 mg PO Q6H PRN PRN Pain 03/31/20 04/23/20 History Or Fever aspirin 81 mg tablet,delayed 81 mg PO QHS 03/31/20 04/19/20 His tory release atenolol 50 mg tablet 50 mg PO BID 03/31/20 03/16/21 His tory calcium carbonate 600 mg PO BID 03/31/20 04/23/20 Hi story cholecalciferol (vitamin D3) 50 2,000 unit PO DAILY 03/31/2004/23 History mcg (2,000 unit) capsule escitalopram oxalate 5 mg tablet 5 mg PO QHS 03/31/20 04/23/20 Hist ory ibuprofen 600 mg tablet 600 mg PO PRN PRN Pain Or Fever 04/23/20 History lutein 6 mg capsule 6 mg PO DAILY 03/31/20 04/23/20 Hi story metformin 500 mg tablet,extended 500 mg PO DAILY 03/31/20 04/23/20 History release 24 hr trazodone 50 mg tablet 100 mg PO QHS 03/31/20 04/23/20 Hi story valsartan 160 mg tablet 160 mg PO QHS 03/31/20 04/23/20 Hi story gabapentin 300 mg capsule 300 mg PO TID 04/15/20 03/16/21 Hi story dicyclomine 10 mg capsule 20 mg (2 x 10 mg) PO Q6H PRN PRN 0 08/26/22 Unknown Rx abdominal discomfort #20 CAPS[facility]ES Allergy/AdvReac Type Severity Reaction Status Date / Time hydrocodone (From Vicodin) Allergy Itching Verified 08/26/22 17:12 oxycodone (From Percocet) Allergy Itching Verified 08/26/22 17:12 Penicillins Allergy Hives Verified 08/26/22 17:12 Family History Mother CVA (cerebral vascular accident) Surgical History History of left heart catheterization (04/10/20) History of cataract surgery History of open reduction and internal fixation (ORIF) procedure History of knee replacement History of total hip arthroplasty History of carpal tunnel release History of lumbar fusion History of cholecystectomy Social History Smoking Status: Former smoker quit date: 08/15/19 pack-years: 90 Tobacco: How many years used: 59 ROS ROS ED Constitutional Constitutional ED: Denies chills or fever(s) Eyes Eyes: Denies blurry vision or change in vision ENT ENT ED: Denies rhinorrhea or sore throat Cardiovascular Cardiovascular: Denies chest pain or palpitations Respiratory/Chest Respiratory/Chest: Denies cough or dyspnea Gastrointestinal Gastrointestinal: Denies nausea or vomiting Genitourinary Genitourinary ED: Denies dysuria or hematuria Musculoskeletal Musculoskeletal: Reports back pain; Denies neck pain Integumentary Denies abscess or rash Neurologic Neurologic: Denies headache(s) or weakness Allergic/Immunologic Allergic/Immunologic ED: Denies mouth swelling or urticaria EXAM Physical Exam Const Vital Signs: 06/16/25 11:52 06/16/25 11:55 06/16/25 12:19 Temperature 97.5 F L Temperature Source Temporal Pulse Rate 75 Pulse Rate [1 (Initial Baseline)] Pulse Rate [2] Respiratory Rate 16 Respiratory Rate [1 (Initial Baseline)] Respiratory Rate [2] Blood Pressure 145/65 H Blood Pr (more content not included)... Normal [facility] HIP, UNI W/ Pelvis 2-3 Views on 06-16-2025 HIP, UNI W/ Pelvis 2-3 Views [facility] [address] [place], [place] [address] HIP, UNI W/ Pelvis 2-3 Views MR#: [id number] Acct: [id number] Name: SUSAN CHANDLER Rep #: [id number] : 1945 F 80 From: Bhaskar Daly DO PCP: Dr. Terrance Alonso MD Status: REG ER Study: HIP, UNI W/ Pelvis 2-3 Views Date of Exam: 10/09 Exam# [id number] Ordering Dr: Patrick Tejeda DO PROCEDURE: HIP, UNI W/ PELVIS 2-3 VIEWS 06/16/2025 REASON FOR EXAM: INJURY/PAIN Hip arthroplasty with posterior dislocation of the right hip. TECHNIQUE: Procedure Code: RAD Modality: DX Procedure: HIP, UNI W/ PELVIS 2-3 VIEWS Laterality: Right COMPARISON: Pre reduction films same day FINDINGS: Bones: Status post right hip total arthroplasty. Joints: On these post reduction views the hip dislocation has been reduced in now lies in satisfactory position and alignment Soft tissues: Unremarkable Other: Incidental note of spinal fixation hardware RAD/HIP, UNI W/ Pelvis 2-3 Views IMPRESSION: Satisfactory reduction of dislocated right hip arthroplasty Reading [facility] CC: Dr. Patrick Tejeda DO; Dr. Terrance Alonso MD [employer] C[employer] Developer: Signed Normal [facility] HIP, UNI W/ Pelvis 2-3 Views [facility] [address] [place] [id number] HIP, UNI W/ Pelvis 2-3 Views MR#: [id number] Acct: [id number] Name: SUSAN CHANDLER Rep #: [id number] : 1945 F 80 From: Francesco Olson PCP: Dr. Terrance Alonso MD Status: REG ER Study: HIP, UNI W/ Pelvis 2-3 Views Date of Exam: 10/09 Exam# [id number] Ordering Dr: Patrick Tejeda DO PROCEDURE: HIP, UNI W/ PELVIS 2-3 VIEWS 06/16/2025 REASON FOR EXAM: INJURY/PAIN TECHNIQUE: Procedure Code: RADHP Modality: DX Procedure: HIP, UNI W/ PELVIS 2-3 VIEWS Laterality: right COMPARISON: None FINDINGS: Status post total right hip arthroplasty. There is dislocation of the ball-socket of the right hip with superior dislocation of the femoral prosthesis. No acute fractures. No acute soft tissue abnormalities. RAD/HIP, UNI W/ Pelvis 2-3 Views IMPRESSION: Status post total right hip arthroplasty. There is dislocation of the ball-socket of the right hip with superior dislocation of the femoral prosthesis. Reading Location: [id number] CC: Dr. Patrick Tejeda DO; Dr. Terrance Alonso MD [employer] Developer: Signed Normal [facility] Bone density reportOrdered B y: Paula Lucero on 05-11-2025 Study report Skeletal system DXA [facility] [address] [place] [address] Dexa Bone Density/Append Skel MR#: [id number] Acct: [id number] Name: SUSAN CHANDLER Rep #: [id number] : 1945 F 79 From: Osmany rose Nerijudith DO PCP: Dr. Terrance Alonso MD Status: RE G CLI Study:Dexa Bone Density/Append Skel Date of E xam: 05/09/25 Exam# [id number] Ordering Dr: Murray Hassan CROCHETER CROCHETER-C PROCEDURE: DEXA BONE DENSITY/APPEND SKEL 05/09/2025 REASON FOR EXAM: F, age 79 y/o . Postmenopausal. TECHNIQUE: Procedure Code: BDDBDAPP Modality: DX Procedure: DEXA BONE DENSITY/APPEND SKEL COMPARISON: None FINDINGS: BMD and T-SCORES Left 1/3 radius: 0.648 g/cm2, T-score -0.8 Right 1/3 radius: 0.601 g/cm2, T-score -1.5 The World Health Organization has defined the following categories based on bonedensity: Normal bone density: T-score equal to or greater than -1.0 Osteopenia: T-score between -1.0 and -2.5 Osteoporosis: T-score equal to or less than -2.5 FRAX (or Comparable) Fracture Risk Assessment: 10 Year Probability of Fracture: Not reported due to no reportable hip. (Note: FRAX is not to be reported in setting of normal range bone density, osteoporosis on DEXA, known history of osteoporosis, prior osteoporotic hip or vertebral fracture, or for any patient undergoing pharmacological treatment for bone loss.) The National Osteoporosis Foundation (NOF) recommends pharmacological treatment for patients with a FRAX 10-year risk of 3% or higher for a hip fracture, or 20% or higher for a major osteoporotic fracture, to prevent osteoporosis and reduce fracture risk. The patient does not meet the pharmacological treatment recommendations for prevention of osteoporosis. BD/Dexa Bone Density/Append Skel IMPRESSION: OSTEOPENIA. Recommend follow-up as clinically warranted. Reading Location: [id number] CC: Murray Hassan; Dr. Terrance Alonso MD ~ [employer] Crm Developer: Signed [facility] Dexa Bone Density/Append Ske sea 05-09-2025 Dexa Bone Density/Append Skel [facility] [address] [place] [address] Dexa Bone Density/Append Skel MR#: [id number] Acct: [id number] Name: SUSAN CHANDLER Rep #: [id number] : 1945 F 79 From: Paula Pozo PCP: Dr. Terrance Alonso MD Status: REG CLI Study: Dexa Bone Density/Append Skel Date of Exam: Exam# [id number] Ordering Dr: Murray Hassan NP, NP PROCEDURE: DEXA BONE DENSITY/APPEND SKEL 05/09/2025 REASON FOR EXAM: F, age 79 y/o . Postmenopausal. TECHNIQUE: Procedure Code: BDDBDAPP Modality: DX Procedure: DEXA BONE DENSITY/APPEND SKEL COMPARISON: None FINDINGS: BMD and T-SCORES Left 1/3 radius: 0.648 g/cm2, T-score -0.8 Right 1/3 radius: 0.601 g/cm2, T-score -1.5 The World Health Organization has defined the following categories based on bone density: Normal bone density: T-score equal to or greater than -1.0 Osteopenia: T-score between -1.0 and -2.5 Osteoporosis: T-score equal to or less than -2.5 FRAX (or Comparable) Fracture Risk Assessment: 10 Year Probability of Fracture: Not reported due to no reportable hip. (Note: FRAX is not to be reported in setting of normal range bone density, osteoporosis on DEXA, known history of osteoporosis, prior osteoporotic hip or vertebral fracture, or for any patient undergoing pharmacological treatment for bone loss.) The National Osteoporosis Foundation (NOF) recommends pharmacological treatment for patients with a FRAX 10-year risk of 3% or higher for a hip fracture, or 20% or higher for a major osteoporotic fracture, to prevent osteoporosis and reduce fracture risk. The patient does not meet the pharmacological treatment recommendations for prevention of osteoporosis. BD/Dexa Bone Density/Append Skel IMPRESSION: OSTEOPENIA. Recommend follow-up as clinically warranted. Reading Location: [facility] [place] CC: Murray LEYVA McMorrow; Dr. Terrance Alonso MD [employer] C[employer] Developer: Signed Normal [facility] L3300.8200on 05-06-2025 VITAMIN B6 48.2 ug/L Normal 3.4-65.2 [facility] Comment on above: Order Comment: Test( s) 671112-Upnhcqr B6was developed and its performance characteristicsdetermined by [employer]. It has not been cleared or approvedby the Food and Drug Administration. Result Comment: Defi ciency: <3.4 Marginal: 3.4 - 5.1 Adequate: >5.1 Performed By: #### L 3300.8000, L3300.8200, L502.0250, L503.0106, L506.1001 ####[facility] [address] [place], [address] Vitamin B1, Thiamineon 05-06 VIT B1 THIAMINE 111.2 nmol/L Normal 66.5-200.0 [facility] Comment on above: Order Comment: Test( s) 219028-Jmsdqzu B6was developed and its performance characteristicsdetermined by [employer]. It has not been cleared or approvedby the Food and Drug Administration. Result Comment: Perf ormed at: - [facility] [address] [id number] Search Engine Opt[employer] Specialist: Esther Prakash MD, Phone: [phone] Performed By: #### L 3300.8000, L3300.8200, L502.0250, L503.0106, L506.1001 ####[facility] [address] [place], [address] Absolute lymphocyte countOrd ered By: Terrance Alonso on 04-30-2025 Lymphocytes Auto (Unsp spec) [#/Vol] 1.37 10*3/uL 0.83-4.51 [facility] Absolute neutrophil countOrd ered By: Terrance Alonso on 04-30-2025 Neutrophils (Bld) [#/Vol] 3.9 10*3/uL 2.0-7.7 [facility] Anion gap in Serum or Plasma Ordered By: Terrance Alonso on 04-30-2025 Anion gap [Moles/Vol] 12 mmol/L 5-15 [facility] Automated lymphocyte count a s percentage of total leukocytesOrdered By: Terrance Alonso on 04-30-2025 Lymphocytes/100 WBC Auto (Unsp spec) 21.9 % 19-41 [facility] BUN/creatinine ratioOrdered By: Terrance Alonso on 04-30-2025 Urea nitrogen/Creatinine [Mass ratio] 21.4 mg/mg High 10-20 [facility] Basophil percentageOrdered B y: Terrance Alonso on 04-30-2025 Basophils/100 WBC (Bld) 0.6 % 0-1 [facility] Bilirubin, totalOrdered By: Terrance Alonso on 04-30-2025 Bilirubin [Mass/Vol] 0.45 mg/dL 0.00-1.30 [facility] CBC W/Diff, Automatedon 04-15 Absolute Lymph 1.37 X10 3/uL Normal 0.83-4.51 [facility] Comment on above: Order Comment: Order Date: 01/10/25 Order Info: 0184-1 - CBCD Performed By: #### L 500.4100, L100.0100, L500.4050, L501.9985 #### [facility] [address] [place], [place], [id number] Absolute Neut 3.9 X10 3/uL Normal 2.0-7.7 [facility] Comment on above: Order Comment: Order Date: 01/10/25 Order Info: 0184-1 - CBCD Performed By: #### L 500.4100, L100.0100, L500.4050, L501.9985 #### [facility] [address] [place], [address] Basophils/100 WBC (Bld) 0.6 % Normal 0-1 [facility] Comment on above: Order Comment: Order Date: 01/10/25 Order Info: 0184-1 - CBCD Performed By: #### L 500.4100, L100.0100, L500.4050, L501.9985 #### [facility] [address] [place], [address] Eosinophils/100 WBC (Bld) 4.3 % Normal 0-5 [facility] Comment on above: Order Comment: Order Date: 01/10/25 Order Info: 0184-1 - CBCD Performed By: #### L 500.4100, L100.0100, L500.4050, L501.9985 #### [facility] [address] [place], [address] Erythrocyte distribution width (RBC) [Ratio] 12.3 % Normal 11.6-14.6 [facility] Comment on above: Order Comment: Order Date: 01/10/25 Order Info: 0184- - CBCD Performed By: #### L 500.4100, L100.0100, L500.4050, L501.9985 #### [facility] [address] [place], [address] Hematocrit (Bld) [Volume fraction] 43.2 % Normal 37-47 [facility] Comment on above: Order Comment: Order Date: 01/10/25 Order Info: 0184-1 - CBCD Performed By: #### L 500.4100, L100.0100, L500.4050, L501.9985 #### [facility] [address] [place], [address] Hemoglobin (Bld) [Mass/Vol] 14.2 g/dL Normal 12.0-15.0 [facility] Comment on above: Order Comment: Order Date: 01/10/25 Order Info: 0184-1 - CBCD Performed By: #### L 500.4100, L100.0100, L500.4050, L501.9985 #### [facility] [address] [place], [address] IG% 0.500 Normal 0.0-0.9 [facility] Comment on above: Order Comment: Order Date: 01/10/25 Order Info: 0184-1 - CBCD Result Comment: IG% - Immature Granulocytes (promyelocytes, myelocytes and metamyelocytes) > 1% indicates that a LEFT SHIFT is Present. Performed By: #### L 500.4100, L100.0100, L500.4050, L501.9985 #### [facility] [address] [place], [address] Lymphocytes/100 WBC (Bld) 21.9 % Normal 19-41 [facility] Comment on above: Order Comment: Order Date: 01/10/25 Order Info: 0184- - CBCD Performed By: #### L 500.4100, L100.0100, L500.4050, L501.9985 #### [facility] [address] [place], [address] MCH (RBC) [Entitic mass] 30.8 pg Normal 27.0-32.0 [facility] Comment on above: Order Comment: Order Date: 01/10/25 Order Info: 0184-1 - CBCD Performed By: #### L 500.4100, L100.0100, L500.4050, L501.9985 #### [facility] [address] [place], [address] MCHC (RBC) [Mass/Vol] 32.9 g/dL Normal 32-36 [facility] Comment on above: Order Comment: Order Date: 01/10/25 Order Info: 0184-1 - CBCD Performed By: #### L 500.4100, L100.0100, L500.4050, L501.9985 #### [facility] [address] [place], [address] MCV (RBC) [Entitic vol] 93.7 fL Normal 81-99 [facility] Comment on above: Order Comment: Order Date: 01/10/25 Order Info: 0184-1 - CBCD Performed By: #### L 500.4100, L100.0100, L500.4050, L501.9985 #### [facility] [address] [place], [address] Monocytes/100 WBC (Bld) 10.1 % High 0-10 [facility] Comment on above: Order Comment: Order Date: 01/10/25 Order Info: 0184-1 - CBCD Performed By: #### L 500.4100, L100.0100, L500.4050, L501.9985 #### [facility] [address] [place], [address] Neutrophils/100 WBC (Bld) 62.6 % Normal 47-70 [facility] Comment on above: Order Comment: Order Date: 01/10/25 Order Info: 0184- - CBCD Performed By: #### L 500.4100, L100.0100, L500.4050, L501.9985 #### [facility] [address] [place], [address] Nucleated RBC (Bld) [#/Vol] 0 10*3/uL Normal 0-5 [facility] Comment on above: Order Comment: Order Date: 01/10/25 Order Info: 0184-1 - CBCD Performed By: #### L 500.4100, L100.0100, L500.4050, L501.9985 #### [facility] [address] [place], [address] Platelet mean volume (Bld) [Entitic vol] 10.1 fL Normal 6.2-12.0 [facility] Comment on above: Order Comment: Order Date: 01/10/25 Order Info: 0184-1 - CBCD Performed By: #### L 500.4100, L100.0100, L500.4050, L501.9985 #### [facility] [address] [place], [address] Platelets (Bld) [#/Vol] 169 10*3/uL Normal 150-450 [facility] Comment on above: Order Comment: Order Date: 01/10/25 Order Info: 0184-1 - CBCD Performed By: #### L 500.4100, L100.0100, L500.4050, L501.9985 #### [facility] [address] [place], [address] RBC (Bld) [#/Vol] 4.61 10*6/uL Normal 4.2-5.4 [facility] Comment on above: Order Comment: Order Date: 01/10/25 Order Info: 0184-1 - CBCD Performed By: #### L 500.4100, L100.0100, L500.4050, L501.9985 #### [facility] [address] [place], [address] RDW SD 42.2 fl Normal 35.1-43.9 [facility] Comment on above: Order Comment: Order Date: 01/10/25 Order Info: 0184-1 - CBCD Performed By: #### L 500.4100, L100.0100, L500.4050, L501.9985 #### [facility] [address] [place], [address] WBC (Bld) [#/Vol] 6.3 10*3/uL Normal 4.4-11.0 [facility] Comment on above: Order Comment: Order Date: 01/10/25 Order Info: 0184-1 - CBCD Performed By: #### L 500.4100, L100.0100, L500.4050, L501.9985 #### [facility] [address] [place], [address] Calculated very low density lipoprotein (VLDL) cholesterol measurementOrdered By: Terrance Alonso on 04-30-2025 Calculated very low density lipoprotein (VLDL) cholesterol measurement 12 mg/dL 5-40 [facility] Carbon dioxide, total [Moles /volume] in Central venous bloodOrdered By: Terrance Alonso on 04-30-2025 CO2 [Moles/Vol] 24.9 mmol/L 21.0-32.0 [facility] Chloride assayOrdered By: Thi Alonso on 04-30-2025 Chloride [Moles/Vol] 106 mmol/L 98-108 [facility] Comprehensive Metabolic Prof ilon 04-30-2025 Albumin [Mass/Vol] 3.9 g/dL Normal 3.4-4.8 [facility] Comment on above: Order Comment: Order Date: 01/10/25 Order Info: [id number] - CMP Order Info: [id number] - LIPID Performed By: #### L 500.4100, L100.0100, L500.4050, L501.9985 #### [facility] [address] [place], [address] Albumin/Globulin [Mass ratio] 1.5 {ratio} Normal 0.9-2.4 [facility] Comment on above: Order Comment: Order Date: 01/10/25 Order Info: [id number] - CMP Order Info: [id number] - LIPID Performed By: #### L 500.4100, L100.0100, L500.4050, L501.9985 #### [facility] [address] [place], [place], [address] ALK PHOS 65 U/L Normal 35-104 [facility] Comment on above: Order Comment: Order Date: 01/10/25 Order Info: [id number] - CMP Order Info: [id number] - LIPID Performed By: #### L 500.4100, L100.0100, L500.4050, L501.9985 #### [facility] [address] [place], [address] ALT [Catalytic activity/Vol] 25 U/L Normal <=34 [facility] Comment on above: Order Comment: Order Date: 01/10/25 Order Info: [id number] - CMP Order Info: [id number] - LIPID Performed By: #### L 500.4100, L100.0100, L500.4050, L501.9985 #### [facility] [address] [place], [address] AST [Catalytic activity/Vol] 33 U/L High <=31 [facility] Comment on above: Order Comment: Order Date: 01/10/25 Order Info: [id number] - CMP Order Info: [id number] - LIPID Performed By: #### L 500.4100, L100.0100, L500.4050, L501.9985 #### [facility] [address] [place], [address] Bilirubin [Mass/Vol] 0.45 mg/dL Normal 0.00-1.30 [facility] Comment on above: Order Comment: Order Date: 01/10/25 Order Info: [id number] - CMP Order Info: [id number] - LIPID Performed By: #### L 500.4100, L100.0100, L500.4050, L501.9985 #### [facility] [address] [place], [address] BUN/CRE 21.4 RATIO High 10-20 [facility] Comment on above: Order Comment: Order Date: 01/10/25 Order Info: [id number] - CMP Order Info: [id number] - LIPID Performed By: #### L 500.4100, L100.0100, L500.4050, L501.9985 #### [facility] [address] [place], [address] Calcium [Mass/Vol] 9.8 mg/dL Normal 7.6-11.0 [facility] Comment on above: Order Comment: Order Date: 01/10/25 Order Info: [id number] - CMP Order Info: [id number] - LIPID Performed By: #### L 500.4100, L100.0100, L500.4050, L501.9985 #### [facility] [address] [place], [address] Chloride [Moles/Vol] 106 mmol/L Normal 98-108 [facility] Comment on above: Order Comment: Order Date: 01/10/25 Order Info: [id number] - CMP Order Info: [id number] - LIPID Performed By: #### L 500.4100, L100.0100, L500.4050, L501.9985 #### [facility] [address] [place], [address] CO2 [Moles/Vol] 24.9 mmol/L Normal 21.0-32.0 [facility] Comment on above: Order Comment: Order Date: 01/10/25 Order Info: 07- - CMP Order Info: [id number] - LIPID Performed By: #### L 500.4100, L100.0100, L500.4050, L501.9985 #### [facility] [address] [place], [address] Creatinine [Mass/Vol] 0.75 mg/dL Normal 0.70-1.20 [facility] Comment on above: Order Comment: Order Date: 01/10/25 Order Info: [id number] - CMP Order Info: [id number] - LIPID Performed By: #### L 500.4100, L100.0100, L500.4050, L501.9985 #### [facility] [address] [place], [address] GAP 12 Normal 5-15 [facility] Comment on above: Order Comment: Order Date: 01/10/25 Order Info: [id number] - CMP Order Info: [id number] - LIPID Performed By: #### L 500.4100, L100.0100, L500.4050, L501.9985 #### [facility] [address] [place], [address] GFR/1.73 sq M.predicted among non-blacks MDRD (S/P/Bld) [Vol rate/Area] 82 mL/min/{1.73_m2} Normal >60 [facility] Comment on above: Order Comment: Order Date: 01/10/25 Order Info: [id number] - CMP Order Info: [id number] - LIPID Result Comment: mL/m in/1.73m2 CKD-EPI Creatinine Equation (2020) Performed By: #### L 500.4100, L100.0100, L500.4050, L501.9985 #### [facility] [address] [place], [address] Globulin (S) [Mass/Vol] 2.6 g/dL Normal 2.2-4.2 [facility] Comment on above: Order Comment: Order Date: 01/10/25 Order Info: [id number]- - CMP Order Info: [id number] - LIPID Performed By: #### L 500.4100, L100.0100, L500.4050, L501.9985 #### [facility] [address] [place], [address] Glucose [Mass/Vol] 125 mg/dL High 70-99 [facility] Comment on above: Order Comment: Order Date: 01/10/25 Order Info: [id number] - CMP Order Info: [id number] - LIPID Performed By: #### L 500.4100, L100.0100, L500.4050, L501.9985 #### [facility] [address] [place], [address] Potassium [Moles/Vol] 4.1 mmol/L Normal 3.3-5.1 [facility] Comment on above: Order Comment: Order Date: 01/10/25 Order Info: [id number] - CMP Order Info: [id number] - LIPID Performed By: #### L 500.4100, L100.0100, L500.4050, L501.9985 #### [facility] [address] [place], [address] Sodium [Moles/Vol] 143 mmol/L Normal 133-145 [facility] Comment on above: Order Comment: Order Date: 01/10/25 Order Info: [id number] - CMP Order Info: [id number] - LIPID Performed By: #### L 500.4100, L100.0100, L500.4050, L501.9985 #### [facility] [address] [place], [address] T PROT 6.6 g/dL Normal 5.9-8.4 [facility] Comment on above: Order Comment: Order Date: 01/10/25 Order Info: [id number] - CMP Order Info: [id number] - LIPID Performed By: #### L 500.4100, L100.0100, L500.4050, L501.9985 #### [facility] [address] [place], [address] Urea nitrogen [Mass/Vol] 16 mg/dL Normal 4-19 [facility] Comment on above: Order Comment: Order Date: 01/10/25 Order Info: [id number] - CMP Order Info: [id number] - LIPID Performed By: #### L 500.4100, L100.0100, L500.4050, L501.9985 #### [facility] [address] [place], [address] Eosinophil percentageOrdered By: Terrance Alonso on 04-30-2025 Eosinophils/100 WBC (Bld) 4.3 % 0-5 [facility] Erythrocyte distribution wid th ratioOrdered By: Terrance Alonso on 04-30-2025 Erythrocyte distribution width (RBC) [Ratio] 12.3 % 11.6-14.6 [facility] Erythrocyte distribution wid th standard deviationOrdered By: Terrance Alonso on 04-30-2025 Erythrocyte distribution width (RBC) [Ratio] 42.2 fl 35.1-43.9 [facility] Glomerular filtration rate ( GFR) estimation/1.73 sq m using serum, plasma, or whole bOrdered By: Terrance Alonso on 04-30-2025 GFR/1.73 sq M.predicted among non-blacks MDRD (S/P/Bld) [Vol rate/Area] 82 mL/min/{1.73_m2} >60 [facility] Comment on above: mL/min/1.73m2 CKD-EP I Creatinine Equation (2020) Hematocrit Auto (Bld) [Volum e fraction]Ordered By: Terrance Alonso on 04-30-2025 Hematocrit (Bld) [Volume fraction] 43.2 % 37-47 [facility] Hemoglobin A1con 04-30-2025 HbA1c (Bld) [Mass fraction] 5.9 % High <=5.6 [facility] Comment on above: Order Comment: Order Date: 01/10/25 Order Info: [id number] - A1C Result Comment: Norm al < 5.7 % Prediabetic 5.7 - 6.4 % Diabetic >or= 6.5 % Please note range changes. Performed By: #### L 500.4100, L100.0100, L500.4050, L501.9985 #### [facility] [place], [address] Hemoglobin A1c percentageOrd ered By: Terrance Alonso on 04-30-2025 HbA1c (Bld) [Mass fraction] 5.9 % High <5.7 [facility] Comment on above: Normal < 5.7 % Predi abetic 5.7 - 6.4 % Diabetic >or= 6.5 % Please note range changes. Hemoglobin measurementOrdere d By: Terrance Alonso on 04-30-2025 Hemoglobin (Bld) [Mass/Vol] 14.2 g/dL 12.0-15.0 [facility] Immature granulocytes/100 WB C Auto (Bld)Ordered By: Terrance Alonso on 04-30-2025 Immature granulocytes/100 WBC (Bld) 0.500 % 0.0-0.9 [facility] Comment on above: IG% - Immature Granu locytes (promyelocytes, myelocytes and metamyelocytes) > 1% indicates that a LEFT SHIFT is Present. LDL calc ser/plasOrdered By: Terrance Alonso on 04-30-2025 Cholesterol in LDL [Mass/Vol] 61 mg/dL [facility] Comment on above: Kotmeddytb=358-462 m g/dL & Higher Ievp=583 mg/dL or greaterFriedwald Equation for LDL-C Laboratory - Chemistry and C hemistry - challengeOrdered By: Terrance Alonso on 04-30-2025 AST [Catalytic activity/Vol] 33 U/L High <32 [facility] Lipid Profileon 04-30-2025 CHOL:HDL 2.[address] [facility] Comment on above: Order Comment: Order Date: 01/10/25 Order Info: [id number] - CMP Order Info: [id number] - LIPID Performed By: #### L 500.4100, L100.0100, L500.4050, L501.9985 #### [facility] [address] [place], [address] Cholesterol [Mass/Vol] 144 mg/dL Normal <=200 [facility] Comment on above: Order Comment: Order Date: 01/10/25 Order Info: [id number] - CMP Order Info: [id number] - LIPID Result Comment: Chol esterol level, Desirable <200 mg/dL Borderline high cholesterol 200-239 mg/dL High cholesterol >=240 mg/dL Recommendations of the NCEP Adult Treatment Panel for the following risk-cutoff thresholds for the [place] population. Performed By: #### L 500.4100, L100.0100, L500.4050, L501.9985 #### [facility] [address] [place], [address] Cholesterol in HDL [Mass/Vol] 71 mg/dL Normal [facility] Comment on above: Order Comment: Order Date: 01/10/25 Order Info: [id number] - CMP Order Info: [id number] - LIPID Result Comment: Alyssa onal Cholesterol Education Program (NCEP) guidelines: <40 mg/dL: Low HDL-cholesterol (major risk factor for CHD) >= 60 mg/dL: High HDL-cholesterol (negative risk factor for CHD) HDL-cholesterol is affected by a number of factors, e.g. smoking, exercise, hormones, sex and age. Performed By: #### L 500.4100, L100.0100, L500.4050, L501.9985 #### [facility] [address] [place], [address] Cholesterol in LDL [Mass/Vol] 61 mg/dL Normal [facility] Comment on above: Order Comment: Order Date: 01/10/25 Order Info: [id number] - CMP Order Info: [id number] - LIPID Result Comment: Bord ojwkgm=378-810 mg/dL Higher Icjv=378 mg/dL or greater Friedwald Equation for LDL-C Performed By: #### L 500.4100, L100.0100, L500.4050, L501.9985 #### [facility] [address] [place], [address] Cholesterol in VLDL [Mass/Vol] 12 mg/dL Normal 5-40 [facility] Comment on above: Order Comment: Order Date: 01/10/25 Order Info: [id number] - CMP Order Info: [id number] - LIPID Performed By: #### L 500.4100, L100.0100, L500.4050, L501.9985 #### [facility] [address] [place], [address] Triglyceride [Mass/Vol] 60 mg/dL Normal [facility] Comment on above: Order Comment: Order Date: 01/10/25 Order Info: [id number] - CMP Order Info: [id number] - LIPID Result Comment: The drugs N-Acetylcysteine and Metamizole may falsely depress this assay. Normal range: <150 mg/dL Borderline High: 150-199 mg/dL High: 200-499 mg/dL Very High: >500 mg/dL Performed By: #### L 500.4100, L100.0100, L500.4050, L501.9985 #### [facility] [address] [place], [place], [address] MCV (mean corpuscular volume ) determinationOrdered By: Terrance Alonso on 04-30-2025 MCV (RBC) [Entitic vol] 93.7 fL 81-99 [facility] Mean corpuscular hemoglobin (MCH) determinationOrdered By: Terrance Alonso on 04-30-2025 MCH (RBC) [Entitic mass] 30.8 pg 27.0-32.0 [facility] Mean corpuscular hemoglobin concentration (MCHC) determinationOrdered By: Terrance Alonso on 04-30-2025 MCHC (RBC) [Mass/Vol] 32.9 g/dL 32-36 [facility] Mean platelet volume determi nationOrdered By: Terrance Alonso on 04-30-2025 Platelet mean volume (Bld) [Entitic vol] 10.1 fL 6.2-12.0 [facility] Microalb:Creat Ratio,Random URon 04-30-2025 Creatinine [Mass/Vol] 123.00 mg/dL Normal 28.00- 217. 00 [facility] Comment on above: Performed By: #### L 3300.8000, L3300.8200, L502.0250, L503.0106, L506.1001 ####[facility] [address] [place], [place], [id number] MALB:CREAT UNABLE TO CALCULATE Normal <30 mg/g CRE [facility] Comment on above: Performed By: #### L 3300.8000, L3300.8200, L502.0250, L503.0106, L506.1001 ####[facility] [address] [place], [address] MICROALBUMIN,UR < 12.0 Normal <20 mg/L [facility] Comment on above: Performed By: #### L 3300.8000, L3300.8200, L502.0250, L503.0106, L506.1001 ####[facility] [address] [place], [address] Microalbumin/creat ratio urO rdered By: Terrance Alonso on 04-30-2025 Urine microalbumin/creatinin e ratio measurement UNABLE TO CALCULATE mg/g CRE <30 [facility] Monocyte percentageOrdered B y: Terrance Alonso on 04-30-2025 Monocytes/100 WBC (Bld) 10.1 % High 0-10 [facility] Neutrophil percentageOrdered By: Terrance Alonso on 04-30-2025 Neutrophils/100 WBC (Bld) 62.6 % 47-70 [facility] Nucleated red blood cell per centageOrdered By: Terrance Alonso on 04-30-2025 Nucleated RBC/100 WBC (Bld) [Ratio] 0 % 0-5 [facility] Platelet countOrdered By: Thi Alonso on 04-30-2025 Platelets (Bld) [#/Vol] 169 10*3/uL 150-450 [facility] Potassium measurement (mass/ volume)Ordered By: Terrance Alonso on 04-30-2025 Potassium (Unsp spec) [Mass/Vol] 4.1 mmol/L 3.3-5.1 [facility] RBC Auto (Bld) [#/Vol]Ordere d By: Terrance Alonso on 04-30-2025 RBC (Bld) [#/Vol] 4.61 10*6/uL 4.2-5.4 [facility] Random urine creatinine giovanni urement (mass/volume)Ordered By: Terrance Alonso on 04-30-2025 Creatinine Unsp time (U) [Mass/Vol] 123.00 mg/dL 28.00-217. 00 [facility] Screening total cholesterol/ high density lipoprotein (HDL) cholesterol ratioOrdered By: Terrance Alonso on 04-30-2025 Cholesterol.total/Chol esterol in HDL [Mass ratio] 2.03 {ratio} [facility] Serum creatinine measurement (mass/volume)Ordered By: Terrance Alonso on 04-30-2025 Creatinine [Mass/Vol] 0.75 mg/dL 0.70-1.20 [facility] Serum globulin measurementOr dered By: Terrance Alonso on 04-30-2025 Globulin (S) [Mass/Vol] 2.6 g/dL 2.2-4.2 [facility] Serum glucose measurement (m ass/volume)Ordered By: Terrance Alonso on 04-30-2025 Glucose [Mass/Vol] 125 mg/dL High 70-99 [facility] Serum or plasma alanine trent otransferase (ALT) measurementOrdered By: Terrance Alonso on 04-30-2025 ALT [Catalytic activity/Vol] 25 U/L <35 [facility] Serum or plasma albumin giovanni urement (mass/volume)Ordered By: Terrance Alonso on 04-30-2025 Albumin [Mass/Vol] 3.9 g/dL 3.4-4.8 [facility] Serum or plasma albumin/glob ulin mass ratioOrdered By: Terrance Alonso on 04-30-2025 Albumin/Globulin [Mass ratio] 1.5 {ratio} 0.9-2.4 [facility] Serum or plasma alkaline tavon sphatase measurementOrdered By: Terrance Alonso on 04-30-2025 ALP [Catalytic activity/Vol] 65 U/L 35-104 [facility] Serum or plasma calcium giovanni urement (mass/volume)Ordered By: Terrance Alonso on 04-30-2025 Calcium [Mass/Vol] 9.8 mg/dL 7.6-11.0 [facility] Serum or plasma cholesterol in HDL measurement (mass/volume)Ordered By: Terrance Alonso on 04-30-2025 Cholesterol in HDL [Mass/Vol] 71 mg/dL >40 [facility] Comment on above: National Cholesterol Education Program (NCEP) guidelines:<40 mg/dL: Low HDL-cholesterol (major risk factor for CHD)>= 60 mg/dL: High HDL-cholesterol (negative risk factor for CHD)HDL-cholesterol is affected by a number of factors, e.g. smoking, exercise, hormones, sex and age. Serum or plasma cholesterol measurement (mass/volume)Ordered By: Terrance Alonso on 04-30-2025 Cholesterol [Mass/Vol] 144 mg/dL <201 [facility] Comment on above: Cholesterol level, D esirable <200 mg/dLBorderline high cholesterol 200-239 mg/dLHigh cholesterol >=240 mg/dLRecommendations of the NCEP Adult Treatment Panel for the following risk-cutoff thresholds for the [place] population. Serum or plasma thiamine lydia surement (mass/volume)Ordered By: Terrance Alonso on 04-30-2025 Thiamine [Mass/Vol] 111.2 nmol/L 66.5-200.0 [facility] Comment on above: Performed at: [address] [id number] Director: Esther Prakash MD, Phone: [phone] Serum or plasma urea nitroge n measurement (mass/volume)Ordered By: Terrance Alonso on 04-30-2025 Urea nitrogen [Mass/Vol] 16 mg/dL 4-19 [facility] Sodium levelOrdered By: Terrance Alonso on 04-30-2025 Sodium [Moles/Vol] 143 mmol/L 133-145 [facility] Total proteinOrdered By: Rodríguez Alonso on 04-30-2025 Protein [Mass/Vol] 6.6 g/dL 5.9-8.4 [facility] Triglycerides measurementOrd ered By: Terrance Alonso on 04-30-2025 Triglyceride [Mass/Vol] 60 mg/dL <199 [facility] Comment on above: The drugs N-Acetylcy steine and Metamizole may falsely depress this assay. Normal range: <150 mg/dLBorderline High: 150-199 mg/dLHigh: 200-499 mg/dLVery High: >500 mg/dL Urine albumin measurement wi detection limit of 20 mg/L or less (mass/volume)Ordered By: Terrance Alonso on 04-30-2025 Albumin DL <= 20 mg/L (U) [Mass/Vol] < 12.0 mg/L <20 mg/L [facility] Vitamin B12on 04-30-2025 Cobalamin (Vitamin B12) [Mass/Vol] 514 pg/mL Normal 180-914 [facility] Comment on above: Order Comment: Order Date: 01/10/25Order Info: [id number] - CMPOrder Info: [id number] - LIPID Performed By: #### L 3300.8000, L3300.8200, L502.0250, L503.0106, L506.1001 ####[facility] [address] [place], [place], [address] Vitamin B12 ser/plasOrdered By: Terrance Alonso on 04-30-2025 Cobalamin (Vitamin B12) [Mass/Vol] 514 pg/mL 180-914 [facility] Vitamin D,25 Hydroxyon 04-30 Vitamin D 25-OH 36.0 ng/mL Normal 30-100 [facility] Comment on above: Order Comment: Order Date: 01/10/25Order Info: [id number] - CMPOrder Info: [id number] - LIPID Result Comment: Billie min D Status Deficiency: <20 ng/mL (50nmol/L) Insufficiency: 20-30 ng/mL (50-75 nmol/L) Sufficiency: 30-100 ng/mL (75-250 nmol/L) Toxicity: >100 ng/mL (>250 nmol/L) Performed By: #### L 3300.8000, L3300.8200, L502.0250, L503.0106, L506.1001 ####[facility] [address] [place], [address] White blood cell (WBC) count Ordered By: Terrance Alonso on 04-30-2025 WBC (Bld) [#/Vol] 6.3 10*3/uL 4.4-11.0 [facility] L3300.8200on 01-13-2025 VITAMIN B6 49.5 ug/L Normal 3.4-65.2 [facility] Comment on above: Order Comment: Test( s) 963241-Wwsgrxe B6was developed and its performance characteristicsdetermined by [facility]. It has not been cleared or approvedby the Food and Drug Administration. Result Comment: Defi ciency: <3.4 Marginal: 3.4 - 5.1 Adequate: >5.1 Performed at: [address] [id number] [employer] Specialist: Esther Prakash MD, Phone: [phone] Performed By: #### L 506.1001, L3300.8200 ####[facility] [address] [place], [address] Absolute lymphocyte countOrd ered By: Terrance Alonso on 01-09-2025 Lymphocytes Auto (Unsp spec) [#/Vol] 1.41 10*3/uL 0.83-4.51 [facility] Absolute neutrophil countOrd ered By: Terrance Alonso on 01-09-2025 Neutrophils (Bld) [#/Vol] 3.2 10*3/uL 2.0-7.7 [facility] Anion gap in Serum or Plasma Ordered By: Terrance Alonso on 01-09-2025 Anion gap [Moles/Vol] 11 mmol/L 5- [facility] Automated lymphocyte count a s percentage of total leukocytesOrdered By: Terrance Alonso on 01-09-2025 Lymphocytes/100 WBC Auto (Unsp spec) 26.3 % - [facility] BUN/creatinine ratioOrdered By: Terracne Alonso on 01-09-2025 Urea nitrogen/Creatinine [Mass ratio] 14.7 mg/mg 10- [facility] Basophil percentageOrdered B y: Terrance Alonso on 01-09-2025 Basophils/100 WBC (Bld) 0.7 % 0- [facility] Bilirubin, totalOrdered By: Terrance Alonso on 01-09-2025 Bilirubin [Mass/Vol] 0.37 mg/dL 0.00-1.30 [facility] CBC W/Diff, Automatedon 12-14 Absolute Lymph 1.41 X10 3/uL Normal 0.83-4.51 [facility] Comment on above: Order Comment: Order Date: 10/11/24Order Info: [id number] - CBCD Performed By: #### L 100.0100, L500.4050, L502.0250, L501.9985, L500.4100 ####[facility] [address] [place], [place], [id number] Absolute Neut 3.2 X10 3/uL Normal 2.0-7.7 [facility] Comment on above: Order Comment: Order Date: 10/11/24Order Info: [id number] - CBCD Performed By: #### L 100.0100, L500.4050, L502.0250, L501.9985, L500.4100 ####[facility] [address] [place], [address] Basophils/100 WBC (Bld) 0.7 % Normal 0-1 [facility] Comment on above: Order Comment: Order Date: 10/11/24Order Info: 0184-1 - CBCD Performed By: #### L 100.0100, L500.4050, L502.0250, L501.9985, L500.4100 ####[facility] [address] [place], [address] Eosinophils/100 WBC (Bld) 3.2 % Normal 0-5 [facility] Comment on above: Order Comment: Order Date: 10/11/24Order Info: 018-1 - CBCD Performed By: #### L 100.0100, L500.4050, L502.0250, L501.9985, L500.4100 ####[facility] [address] [place], [address] Erythrocyte distribution width (RBC) [Ratio] 12.3 % Normal 11.6-14.6 [facility] Comment on above: Order Comment: Order Date: 10/11/24Order Info: 018- - CBCD Performed By: #### L 100.0100, L500.4050, L502.0250, L501.9985, L500.4100 ####[facility] [address] [place], [address] Hematocrit (Bld) [Volume fraction] 45.6 % Normal 37-47 [facility] Comment on above: Order Comment: Order Date: 10/11/24Order Info: 0184-1 - CBCD Performed By: #### L 100.0100, L500.4050, L502.0250, L501.9985, L500.4100 ####[facility] [address] [place], [address] Hemoglobin (Bld) [Mass/Vol] 14.9 g/dL Normal 12.0-15.0 [facility] Comment on above: Order Comment: Order Date: 10/11/24Order Info: 0184-1 - CBCD Performed By: #### L 100.0100, L500.4050, L502.0250, L501.9985, L500.4100 ####[facility] [address] [place], [address] IG% 0.400 Normal 0.0-0.9 [facility] Comment on above: Order Comment: Order Date: 10/11/24Order Info: 018-1 - CBCD Result Comment: IG% - Immature Granulocytes (promyelocytes, myelocytes and metamyelocytes) > 1% indicates that a LEFT SHIFT is Present. Performed By: #### L 100.0100, L500.4050, L502.0250, L501.9985, L500.4100 ####[facility] [address] [place], [address] Lymphocytes/100 WBC (Bld) 26.3 % Normal 19-41 [facility] Comment on above: Order Comment: Order Date: 10/11/24Order Info: 0184-1 - CBCD Performed By: #### L 100.0100, L500.4050, L502.0250, L501.9985, L500.4100 ####[facility] [address] [place], [address] MCH (RBC) [Entitic mass] 31.0 pg Normal 27.0-32.0 [facility] Comment on above: Order Comment: Order Date: 10/11/24Order Info: 0184-1 - CBCD Performed By: #### L 100.0100, L500.4050, L502.0250, L501.9985, L500.4100 ####[facility] [address] [place], [address] MCHC (RBC) [Mass/Vol] 32.7 g/dL Normal 32-36 [facility] Comment on above: Order Comment: Order Date: 10/11/24Order Info: 018-1 - CBCD Performed By: #### L 100.0100, L500.4050, L502.0250, L501.9985, L500.4100 ####[facility] [address] [place], [address] MCV (RBC) [Entitic vol] 94.8 fL Normal 81-99 [facility] Comment on above: Order Comment: Order Date: 10/11/24Order Info: 018- - CBCD Performed By: #### L 100.0100, L500.4050, L502.0250, L501.9985, L500.4100 ####[facility] [address] [place], [address] Monocytes/100 WBC (Bld) 9.3 % Normal 0-10 [facility] Comment on above: Order Comment: Order Date: 10/11/24Order Info: 018- - CBCD Performed By: #### L 100.0100, L500.4050, L502.0250, L501.9985, L500.4100 ####[facility] [address] [place], [address] Neutrophils/100 WBC (Bld) 60.1 % Normal 47-70 [facility] Comment on above: Order Comment: Order Date: 10/11/24Order Info: 018- - CBCD Performed By: #### L 100.0100, L500.4050, L502.0250, L501.9985, L500.4100 ####[facility] [address] [place], [address] Nucleated RBC (Bld) [#/Vol] 0 10*3/uL Normal 0-5 [facility] Comment on above: Order Comment: Order Date: 10/11/24Order Info: 018-1 - CBCD Performed By: #### L 100.0100, L500.4050, L502.0250, L501.9985, L500.4100 ####[facility] [address] [place], [address] Platelet mean volume (Bld) [Entitic vol] 10.8 fL Normal 6.2-12.0 [facility] Comment on above: Order Comment: Order Date: 10/11/24Order Info: 018-1 - CBCD Performed By: #### L 100.0100, L500.4050, L502.0250, L501.9985, L500.4100 ####[facility] [address] [place], [address] Platelets (Bld) [#/Vol] 159 10*3/uL Normal 150-450 [facility] Comment on above: Order Comment: Order Date: 10/11/24Order Info: 018- - CBCD Performed By: #### L 100.0100, L500.4050, L502.0250, L501.9985, L500.4100 ####[facility] [address] [place], [address] RBC (Bld) [#/Vol] 4.81 10*6/uL Normal 4.2-5.4 [facility] Comment on above: Order Comment: Order Date: 10/11/24Order Info: 018- - CBCD Performed By: #### L 100.0100, L500.4050, L502.0250, L501.9985, L500.4100 ####[facility] [address] [place], [address] RDW SD 42.9 fl Normal 35.1-43.9 [facility] Comment on above: Order Comment: Order Date: 10/11/24Order Info: 018-1 - CBCD Performed By: #### L 100.0100, L500.4050, L502.0250, L501.9985, L500.4100 ####[facility] [address] [place], [address] WBC (Bld) [#/Vol] 5.4 10*3/uL Normal 4.4-11.0 [facility] Comment on above: Order Comment: Order Date: 10/11/24Order Info: [id number] - CBCD Performed By: #### L 100.0100, L500.4050, L502.0250, L501.9985, L500.4100 ####[facility] [address] [place], [place], [id number] Calculated very low density lipoprotein (VLDL) cholesterol measurementOrdered By: Terrance Alonso on 01-09-2025 Calculated very low density lipoprotein (VLDL) cholesterol measurement 20 mg/dL 5-40 [facility] Carbon dioxide, total [Moles /volume] in Central venous bloodOrdered By: Terrance Alonso on 01-09-2025 CO2 [Moles/Vol] 25.0 mmol/L 21.0-32.0 [facility] Chloride assayOrdered By: Thi Alonso on 01-09-2025 Chloride [Moles/Vol] 104 mmol/L 98-108 [facility] Comprehensive Metabolic Prof ilon 01-09-2025 Albumin [Mass/Vol] 4.0 g/dL Normal 3.4-4.8 [facility] Comment on above: Order Comment: Order Date: 10/11/24Order Info: [id number] - CMPOrder Info: [id number] - LIPID Performed By: #### L 100.0100, L500.4050, L502.0250, L501.9985, L500.4100 ####[facility] [id number], [address] Albumin/Globulin [Mass ratio] 1.4 {ratio} Normal 0.9-2.4 [facility] Comment on above: Order Comment: Order Date: 10/11/24Order Info: [id number] - CMPOrder Info: [id number] - LIPID Performed By: #### L 100.0100, L500.4050, L502.0250, L501.9985, L500.4100 ####[facility] [address] [place], [address] ALK PHOS 63 U/L Normal 35-104 [facility] Comment on above: Order Comment: Order Date: 10/11/24Order Info: [id number] - CMPOrder Info: [id number] - LIPID Performed By: #### L 100.0100, L500.4050, L502.0250, L501.9985, L500.4100 ####[facility] [address] [place], [address] ALT [Catalytic activity/Vol] 22 U/L Normal <=34 [facility] Comment on above: Order Comment: Order Date: 10/11/24Order Info: [id number] - CMPOrder Info: [id number] - LIPID Performed By: #### L 100.0100, L500.4050, L502.0250, L501.9985, L500.4100 ####[facility] [address] [place], [address] AST [Catalytic activity/Vol] 30 U/L Normal <=31 [facility] Comment on above: Order Comment: Order Date: 10/11/24Order Info: [id number] - CMPOrder Info: [id number] - LIPID Performed By: #### L 100.0100, L500.4050, L502.0250, L501.9985, L500.4100 ####[facility] [address] [place], [address] Bilirubin [Mass/Vol] 0.37 mg/dL Normal 0.00-1.30 [facility] Comment on above: Order Comment: Order Date: 10/11/24Order Info: [id number]- - CMPOrder Info: [id number] - LIPID Performed By: #### L 100.0100, L500.4050, L502.0250, L501.9985, L500.4100 ####[facility] [address] [place], [address] BUN/CRE 14.7 RATIO Normal 10-20 [facility] Comment on above: Order Comment: Order Date: 10/11/24Order Info: [id number] - CMPOrder Info: [id number] - LIPID Performed By: #### L 100.0100, L500.4050, L502.0250, L501.9985, L500.4100 ####[facility] [address] [place], [address] Calcium [Mass/Vol] 9.7 mg/dL Normal 7.6-11.0 [facility] Comment on above: Order Comment: Order Date: 10/11/24Order Info: [id number] - CMPOrder Info: [id number] - LIPID Performed By: #### L 100.0100, L500.4050, L502.0250, L501.9985, L500.4100 ####[facility] [address] [place], [address] Chloride [Moles/Vol] 104 mmol/L Normal 98-108 [facility] Comment on above: Order Comment: Order Date: 10/11/24Order Info: [id number] - CMPOrder Info: [id number] - LIPID Performed By: #### L 100.0100, L500.4050, L502.0250, L501.9985, L500.4100 ####[facility] [address] [place], [address] CO2 [Moles/Vol] 25.0 mmol/L Normal 21.0-32.0 [facility] Comment on above: Order Comment: Order Date: 10/11/24Order Info: [id number] - CMPOrder Info: [id number] - LIPID Performed By: #### L 100.0100, L500.4050, L502.0250, L501.9985, L500.4100 ####[facility] [address] [place], [address] Creatinine [Mass/Vol] 0.76 mg/dL Normal 0.70-1.20 [facility] Comment on above: Order Comment: Order Date: 10/11/24Order Info: [id number]- - CMPOrder Info: [id number] - LIPID Performed By: #### L 100.0100, L500.4050, L502.0250, L501.9985, L500.4100 ####[facility] [address] [place], [address] GAP 11 Normal 5-15 [facility] Comment on above: Order Comment: Order Date: 10/11/24Order Info: [id number] - CMPOrder Info: [id number] - LIPID Performed By: #### L 100.0100, L500.4050, L502.0250, L501.9985, L500.4100 ####[facility] [address] [place], [place], [address] GFR/1.73 sq M.predicted among non-blacks MDRD (S/P/Bld) [Vol rate/Area] 80 mL/min/{1.73_m2} Normal >60 [facility] Comment on above: Order Comment: Order Date: 10/11/24Order Info: [id number] - CMPOrder Info: [id number] - LIPID Result Comment: mL/m in/1.73m2 CKD-EPI Creatinine Equation (2020) Performed By: #### L 100.0100, L500.4050, L502.0250, L501.9985, L500.4100 ####[facility] [address] [place], [address] Globulin (S) [Mass/Vol] 2.8 g/dL Normal 2.2-4.2 [facility] Comment on above: Order Comment: Order Date: 10/11/24Order Info: [id number]- - CMPOrder Info: [id number] - LIPID Performed By: #### L 100.0100, L500.4050, L502.0250, L501.9985, L500.4100 ####[facility] [address] [place], [address] Glucose [Mass/Vol] 120 mg/dL High 70-99 [facility] Comment on above: Order Comment: Order Date: 10/11/24Order Info: [id number] - CMPOrder Info: [id number] - LIPID Performed By: #### L 100.0100, L500.4050, L502.0250, L501.9985, L500.4100 ####[facility] [address] [place], [address] Potassium [Moles/Vol] 4.1 mmol/L Normal 3.3-5.1 [facility] Comment on above: Order Comment: Order Date: 10/11/24Order Info: [id number] - CMPOrder Info: [id number] - LIPID Performed By: #### L 100.0100, L500.4050, L502.0250, L501.9985, L500.4100 ####[facility] [address] [place], [address] Sodium [Moles/Vol] 140 mmol/L Normal 133-145 [facility] Comment on above: Order Comment: Order Date: 10/11/24Order Info: [id number] - CMPOrder Info: [id number] - LIPID Performed By: #### L 100.0100, L500.4050, L502.0250, L501.9985, L500.4100 ####[facility] [address] [place], [address] T PROT 6.8 g/dL Normal 5.9-8.4 [facility] Comment on above: Order Comment: Order Date: 10/11/24Order Info: [id number] - CMPOrder Info: [id number] - LIPID Performed By: #### L 100.0100, L500.4050, L502.0250, L501.9985, L500.4100 ####[facility] [address] [place], [place], [address] Urea nitrogen [Mass/Vol] 11 mg/dL Normal 4-19 [facility] Comment on above: Order Comment: Order Date: 10/11/24Order Info: [id number] - CMPOrder Info: [id number] - LIPID Performed By: #### L 100.0100, L500.4050, L502.0250, L501.9985, L500.4100 ####[facility] [address] [place], [address] Eosinophil percentageOrdered By: Terrance Alonso on 01-09-2025 Eosinophils/100 WBC (Bld) 3.2 % 0-5 [facility] Erythrocyte distribution wid th ratioOrdered By: Terrance Alonso on 01-09-2025 Erythrocyte distribution width (RBC) [Ratio] 12.3 % 11.6-14.6 [facility] Erythrocyte distribution wid th standard deviationOrdered By: Terrance Alonso on 01-09-2025 Erythrocyte distribution width (RBC) [Ratio] 42.9 fl 35.1-43.9 [facility] Glomerular filtration rate ( GFR) estimation/1.73 sq m using serum, plasma, or whole bOrdered By: Terrance Alonso on 01-09-2025 GFR/1.73 sq M.predicted among non-blacks MDRD (S/P/Bld) [Vol rate/Area] 80 mL/min/{1.73_m2} >60 [facility] Comment on above: mL/min/1.73m2 CKD-EP I Creatinine Equation (2020) Hematocrit Auto (Bld) [Volum e fraction]Ordered By: Terrance Alonso on 01-09-2025 Hematocrit (Bld) [Volume fraction] 45.6 % 37-47 [facility] Hemoglobin A1con 01-09-2025 HbA1c (Bld) [Mass fraction] 6.4 % High <=5.6 [facility] Comment on above: Order Comment: Order Date: 10/11/24Order Info: [id number] - A1C Result Comment: Norm al < 5.7 % Prediabetic 5.7 - 6.4 % Diabetic >or= 6.5 % Please note range changes. Performed By: #### L 100.0100, L500.4050, L502.0250, L501.9985, L500.4100 ####[facility] [address] [place], [place], [phone] Hemoglobin A1c percentageOrd ered By: Terrance Alonso on 01-09-2025 HbA1c (Bld) [Mass fraction] 6.4 % High <5.7 [facility] Comment on above: Normal < 5.7 % Predi abetic 5.7 - 6.4 % Diabetic >or= 6.5 % Please note range changes. Hemoglobin measurementOrdere d By: Terrance Alonso on 01-09-2025 Hemoglobin (Bld) [Mass/Vol] 14.9 g/dL 12.0-15.0 [facility] Immature granulocytes/100 WB C Auto (Bld)Ordered By: Terrance Alonso on 01-09-2025 Immature granulocytes/100 WBC (Bld) 0.400 % 0.0-0.9 [facility] Comment on above: IG% - Immature Granu locytes (promyelocytes, myelocytes and metamyelocytes) > 1% indicates that a LEFT SHIFT is Present. LDL calc ser/plasOrdered By: Terrance Alonso on 01-09-2025 Cholesterol in LDL [Mass/Vol] 63 mg/dL [facility] Comment on above: Grflldxqfn=349-780 m g/dL & Higher Prbk=465 mg/dL or greater Laboratory - Chemistry and C hemistry - challengeOrdered By: Terrance Alonso on 01-09-2025 AST [Catalytic activity/Vol] 30 U/L <32 [facility] Lipid Profileon 01-09-2025 CHOL:HDL 2.[address] [facility] Comment on above: Order Comment: Order Date: 10/11/24Order Info: [id number] - CMPOrder Info: [id number] - LIPID Performed By: #### L 100.0100, L500.4050, L502.0250, L501.9985, L500.4100 ####[facility] [address] [place], [place], [phone] Cholesterol [Mass/Vol] 139 mg/dL Normal <=200 [facility] Comment on above: Order Comment: Order Date: 10/11/24Order Info: [id number] - CMPOrder Info: [id number] - LIPID Result Comment: Chol esterol level, Desirable <200 mg/dL Borderline high cholesterol 200-239 mg/dL High cholesterol >=240 mg/dL Recommendations of the NCEP Adult Treatment Panel for the following risk-cutoff thresholds for the [place] population. Performed By: #### L 100.0100, L500.4050, L502.0250, L501.9985, L500.4100 ####[facility] [address] [place], [address] Cholesterol in HDL [Mass/Vol] 56 mg/dL Normal [facility] Comment on above: Order Comment: Order Date: 10/11/24Order Info: [id number] - CMPOrder Info: [id number] - LIPID Result Comment: Alyssa onal Cholesterol Education Program (NCEP) guidelines: <40 mg/dL: Low HDL-cholesterol (major risk factor for CHD) >= 60 mg/dL: High HDL-cholesterol (negative risk factor for CHD) HDL-cholesterol is affected by a number of factors, e.g. smoking, exercise, hormones, sex and age. Performed By: #### L 100.0100, L500.4050, L502.0250, L501.9985, L500.4100 ####[facility] [address] [place], [address] Cholesterol in LDL [Mass/Vol] 63 mg/dL Normal [facility] Comment on above: Order Comment: Order Date: 10/11/24Order Info: [id number] - CMPOrder Info: [id number] - LIPID Result Comment: Bord qvmrlk=051-200 mg/dL Higher Mtpo=015 mg/dL or greater Performed By: #### L 100.0100, L500.4050, L502.0250, L501.9985, L500.4100 ####[facility] [address] [place], [address] Cholesterol in VLDL [Mass/Vol] 20 mg/dL Normal 5-40 [facility] Comment on above: Order Comment: Order Date: 10/11/24Order Info: [id number] - CMPOrder Info: [id number] - LIPID Performed By: #### L 100.0100, L500.4050, L502.0250, L501.9985, L500.4100 ####[facility] [address] [place], [place], [address] Triglyceride [Mass/Vol] 98 mg/dL Normal [facility] Comment on above: Order Comment: Order Date: 10/11/24Order Info: [id number] - CMPOrder Info: [id number] - LIPID Result Comment: The drugs N-Acetylcysteine and Metamizole may falsely depress this assay. Normal range: <150 mg/dL Borderline High: 150-199 mg/dL High: 200-499 mg/dL Very High: >500 mg/dL Performed By: #### L 100.0100, L500.4050, L502.0250, L501.9985, L500.4100 ####[facility] [address] [place], [place], [phone] MCV (mean corpuscular volume ) determinationOrdered By: Terrance Alonso on 01-09-2025 MCV (RBC) [Entitic vol] 94.8 fL 81-99 [facility] Mean corpuscular hemoglobin (MCH) determinationOrdered By: Terrance Alonso on 01-09-2025 MCH (RBC) [Entitic mass] 31.0 pg 27.0-32.0 [facility] Mean corpuscular hemoglobin concentration (MCHC) determinationOrdered By: Terrance Alonso on 01-09-2025 MCHC (RBC) [Mass/Vol] 32.7 g/dL 32-36 [facility] Mean platelet volume determi nationOrdered By: Terrance Alonso on 01-09-2025 Platelet mean volume (Bld) [Entitic vol] 10.8 fL 6.2-12.0 [facility] Microalb:Creat Ratio,Random URon 01-09-2025 Creatinine [Mass/Vol] 35.90 mg/dL Normal 28.00- 217. 00 [facility] Comment on above: Order Comment: Order Date: 10/11/24Order Info: [id number] - MIACREOrder Info: [id number] - MIALB Performed By: #### L 100.0100, L500.4050, L502.0250, L501.9985, L500.4100 ####[facility] [address] [place], [place], [id number] MALB:CREAT UNABLE TO CALCULATE Normal [facility] Comment on above: Order Comment: Order Date: 10/11/24Order Info: [id number] - MIACREOrder Info: [id number] - MIALB Performed By: #### L 100.0100, L500.4050, L502.0250, L501.9985, L500.4100 ####[facility] [address] [place], [place], [id number] MICROALBUMIN,UR < 12.0 Normal NO RANGE EST. [facility] Comment on above: Order Comment: Order Date: 10/11/24Order Info: [id number] - MIACREOrder Info: [id number] - MIALB Performed By: #### L 100.0100, L500.4050, L502.0250, L501.9985, L500.4100 ####[facility] [address] [place], [place], [address] Microalbumin/creat ratio urO rdered By: Terrance Alonso on 01-09-2025 Urine microalbumin/creatinin e ratio measurement UNABLE TO CALCULATE mg/g CRE [facility] Monocyte percentageOrdered B y: Terrance Alonso on 01-09-2025 Monocytes/100 WBC (Bld) 9.3 % 0-10 [facility] Neutrophil percentageOrdered By: Terrance Alonso on 01-09-2025 Neutrophils/100 WBC (Bld) 60.1 % 47-70 [facility] Nucleated red blood cell per centageOrdered By: Terrance Alonso on 01-09-2025 Nucleated RBC/100 WBC (Bld) [Ratio] 0 % 0-5 [facility] Platelet countOrdered By: Thi Alonso on 01-09-2025 Platelets (Bld) [#/Vol] 159 10*3/uL 150-450 [facility] Potassium measurement (mass/ volume)Ordered By: Terrance Alonso on 01-09-2025 Potassium (Unsp spec) [Mass/Vol] 4.1 mmol/L 3.3-5.1 [facility] RBC Auto (Bld) [#/Vol]Ordere d By: Terrance Alonso on 01-09-2025 RBC (Bld) [#/Vol] 4.81 10*6/uL 4.2-5.4 [facility] Random urine creatinine giovanni urement (mass/volume)Ordered By: Terrance Alonso on 01-09-2025 Creatinine Unsp time (U) [Mass/Vol] 35.90 mg/dL 28.00-217. 00 [facility] Screening total cholesterol/ high density lipoprotein (HDL) cholesterol ratioOrdered By: Terrance Alonos on 01-09-2025 Cholesterol.total/Chol esterol in HDL [Mass ratio] 2.46 {ratio} [facility] Serum creatinine measurement (mass/volume)Ordered By: Terrance Alonso on 01-09-2025 Creatinine [Mass/Vol] 0.76 mg/dL 0.70-1.20 [facility] Serum globulin measurementOr dered By: eTrrance Alonso on 01-09-2025 Globulin (S) [Mass/Vol] 2.8 g/dL 2.2-4.2 [facility] Serum glucose measurement (m ass/volume)Ordered By: Terrance Alonso on 01-09-2025 Glucose [Mass/Vol] 120 mg/dL High 70-99 [facility] Serum or plasma alanine trent otransferase (ALT) measurementOrdered By: Terrance Alonso on 01-09-2025 ALT [Catalytic activity/Vol] 22 U/L <35 [facility] Serum or plasma albumin giovanni urement (mass/volume)Ordered By: Terrance Alonso on 01-09-2025 Albumin [Mass/Vol] 4.0 g/dL 3.4-4.8 [facility] Serum or plasma albumin/glob ulin mass ratioOrdered By: Terrance Alonso on 01-09-2025 Albumin/Globulin [Mass ratio] 1.4 {ratio} 0.9-2.4 [facility] Serum or plasma alkaline tavon sphatase measurementOrdered By: Terrance Alonso on 01-09-2025 ALP [Catalytic activity/Vol] 63 U/L 35-104 [facility] Serum or plasma calcium giovanni urement (mass/volume)Ordered By: Terrance Alonso on 01-09-2025 Calcium [Mass/Vol] 9.7 mg/dL 7.6-11.0 [facility] Serum or plasma cholesterol in HDL measurement (mass/volume)Ordered By: Terrance Alonso on 01-09-2025 Cholesterol in HDL [Mass/Vol] 56 mg/dL >40 [facility] Comment on above: National Cholesterol Education Program (NCEP) guidelines:<40 mg/dL: Low HDL-cholesterol (major risk factor for CHD)>= 60 mg/dL: High HDL-cholesterol (negative risk factor for CHD)HDL-cholesterol is affected by a number of factors, e.g. smoking, exercise, hormones, sex and age. Serum or plasma cholesterol measurement (mass/volume)Ordered By: Terrance Alonso on 01-09-2025 Cholesterol [Mass/Vol] 139 mg/dL <201 [facility] Comment on above: Cholesterol level, D esirable <200 mg/dLBorderline high cholesterol 200-239 mg/dLHigh cholesterol >=240 mg/dLRecommendations of the NCEP Adult Treatment Panel for the following risk-cutoff thresholds for the [place] population. Serum or plasma urea nitroge n measurement (mass/volume)Ordered By: Terrance Alonso on 01-09-2025 Urea nitrogen [Mass/Vol] 11 mg/dL 4-19 [facility] Sodium levelOrdered By: Terrance Alonso on 01-09-2025 Sodium [Moles/Vol] 140 mmol/L 133-145 [facility] Total proteinOrdered By: Rodríguez Alonso on 01-09-2025 Protein [Mass/Vol] 6.8 g/dL 5.9-8.4 [facility] Triglycerides measurementOrd ered By: Terrance Alonso on 01-09-2025 Triglyceride [Mass/Vol] 98 mg/dL <199 [facility] Comment on above: The drugs N-Acetylcy steine and Metamizole may falsely depress this assay. Normal range: <150 mg/dLBorderline High: 150-199 mg/dLHigh: 200-499 mg/dLVery High: >500 mg/dL Urine albumin [facility] detection limit of 20 mg/L or less (mass/volume)Ordered By: Terrance Alonso on 01-09-2025 Albumin DL <= 20 mg/L (U) [Mass/Vol] < 12.0 mg/L NO RANGE EST. [facility] Vitamin D,25 Hydroxyon 01-09 Vitamin D 25-OH 33.3 ng/mL Normal 30-100 [facility] Comment on above: Order Comment: Order Date: 10/11/24Order Info: [id number] - CMPOrder Info: [id number] - LIPID Result Comment: Billie min D Status Deficiency: <20 ng/mL (50nmol/L) Insufficiency: 20-30 ng/mL (50-75 nmol/L) Sufficiency: 30-100 ng/mL (75-250 nmol/L) Toxicity: >100 ng/mL (>250 nmol/L) Performed By: #### L 506.1001, L3300.8200 ####[facility] [address] [place], [address] White blood cell (WBC) count Ordered By: Terrance Alonso on 01-09-2025 WBC (Bld) [#/Vol] 5.4 10*3/uL 4.4-11.0 [facility] L3300.8200on 10-07-2024 VITAMIN B6 54.2 ug/L Normal 3.4-65.2 [facility] Comment on above: Order Comment: Test( s) 767889-Nlwmobv B6 was developed and its performance characteristics determined by [employer]. It has not been cleared or approved by the Food and Drug Administration. Result Comment: Defi ciency: <3.4 Marginal: 3.4 - 5.1 Adequate: >5.1 Performed at: [address] [id number] [employer] Specialist: Esther Prakash MD, Phone: [phone] Performed By: #### L 3300.8200 #### [facility] [address] [place], [place], [id number] Vitamin D,25 Hydroxyon 10-04 Vitamin D 25-OH 40.2 ng/mL Normal [facility] Comment on above: Order Comment: Order Date: 09/28/24Order Info: [id number] - VITD25 Result Comment: Billie min D 25(OH) Status Range Deficiency <20 ng/mL (50nmol/L) Insufficiency 20 - 30 ng/mL (50 - 75 nmol/L) Sufficiency 30 - 100 ng/mL (75 - 250 nmol/L) Toxicity >100 ng/mL (>250 nmol/L) Performed By: #### L 506.0400, L500.4050, L501.9985, L506.1000, L100.0100, L501.9520, L500.4100 ####[facility] [address] [place], [place], [address] Absolute lymphocyte countOrd ered By: Terrance Alonso on 10-02-2024 Lymphocytes Auto (Unsp spec) [#/Vol] 2.00 10*3/uL 0.83-4.51 [facility] Absolute neutrophil countOrd ered By: Terrance Alonso on 10-02-2024 Neutrophils (Bld) [#/Vol] 5.1 10*3/uL 2.0-7.7 [facility] Albumin to globulin ratioOrd ered By: Terrance Alonso on 10-02-2024 Albumin/Globulin [Mass ratio] 0.9 {ratio} 0.9-2.4 [facility] Automated lymphocyte count a s percentage of total leukocytesOrdered By: Terrance Alonso on 10-02-2024 Lymphocytes/100 WBC Auto (Unsp spec) 25.4 % 19-41 [facility] Basophil percentageOrdered B y: Terrance Alonso on 10-02-2024 Basophils/100 WBC (Bld) 0.5 % 0-1 [facility] Bilirubin, totalOrdered By: Terrance Alonso on 10-02-2024 Bilirubin [Mass/Vol] 0.60 mg/dL 0.20-1.00 [facility] Comment on above: For patients on eltr ombopag therapy, use of Dimension [place] TBIL is not recommended. Blood urea nitrogen (BUN)/cr eatinine ratioOrdered By: Terrance Alonso on 10-02-2024 Urea nitrogen/Creatinine [Mass ratio] 22.5 mg/mg High 10-20 [facility] CBC W/Diff, Automatedon 09-15 Absolute Lymph 2.00 X10 3/uL Normal 0.83-4.51 [facility] Comment on above: Order Comment: Order Date: 09/28/24Order Info: [id number] - CBCD Performed By: #### L 506.0400, L500.4050, L501.9985, L506.1000, L100.0100, L501.9520, L500.4100 ####[facility] [address] [place], [place], [phone]) Absolute Neut 5.1 X10 3/uL Normal 2.0-7.7 [facility] Comment on above: Order Comment: Order Date: 09/28/24Order Info: [id number] - CBCD Performed By: #### L 506.0400, L500.4050, L501.9985, L506.1000, L100.0100, L501.9520, L500.4100 ####[facility] [address] [place], [address] Basophils/100 WBC (Bld) 0.5 % Normal 0-1 [facility] Comment on above: Order Comment: Order Date: 09/28/24Order Info: [id number] - CBCD Performed By: #### L 506.0400, L500.4050, L501.9985, L506.1000, L100.0100, L501.9520, L500.4100 ####[facility] [address] [place], [address] Eosinophils/100 WBC (Bld) 3.2 % Normal 0-5 [facility] Comment on above: Order Comment: Order Date: 09/28/24Order Info: [id number] - CBCD Performed By: #### L 506.0400, L500.4050, L501.9985, L506.1000, L100.0100, L501.9520, L500.4100 ####[facility] [address] [place], [address] Erythrocyte distribution width (RBC) [Ratio] 12.5 % Normal 11.6-14.6 [facility] Comment on above: Order Comment: Order Date: 09/28/24Order Info: [id number] - CBCD Performed By: #### L 506.0400, L500.4050, L501.9985, L506.1000, L100.0100, L501.9520, L500.4100 ####[facility] [address] [place], [place], [phone] Hematocrit (Bld) [Volume fraction] 44.6 % Normal 37-47 [facility] Comment on above: Order Comment: Order Date: 09/28/24Order Info: [id number] - CBCD Performed By: #### L 506.0400, L500.4050, L501.9985, L506.1000, L100.0100, L501.9520, L500.4100 ####[facility] [address] [place], [place], [phone]) Hemoglobin (Bld) [Mass/Vol] 14.4 g/dL Normal 12.0-15.0 [facility] Comment on above: Order Comment: Order Date: 09/28/24Order Info: [id number] - CBCD Performed By: #### L 506.0400, L500.4050, L501.9985, L506.1000, L100.0100, L501.9520, L500.4100 ####[facility] [address] [place], [address] IG% 0.400 Normal 0.0-0.9 [facility] Comment on above: Order Comment: Order Date: 09/28/24Order Info: [id number] - CBCD Result Comment: IG% - Immature Granulocytes (promyelocytes, myelocytes and metamyelocytes) > 1% indicates that a LEFT SHIFT is Present. Performed By: #### L 506.0400, L500.4050, L501.9985, L506.1000, L100.0100, L501.9520, L500.4100 ####[facility] [address], [address] Lymphocytes/100 WBC (Bld) 25.4 % Normal 19-41 [facility] Comment on above: Order Comment: Order Date: 09/28/24Order Info: 0184-1 - CBCD Performed By: #### L 506.0400, L500.4050, L501.9985, L506.1000, L100.0100, L501.9520, L500.4100 ####[facility] [address] [place], [address] MCH (RBC) [Entitic mass] 29.7 pg Normal 27.0-32.0 [facility] Comment on above: Order Comment: Order Date: 09/28/24Order Info: 0184-1 - CBCD Performed By: #### L 506.0400, L500.4050, L501.9985, L506.1000, L100.0100, L501.9520, L500.4100 ####[facility] [address] [place], [address] MCHC (RBC) [Mass/Vol] 32.3 g/dL Normal 32-36 [facility] Comment on above: Order Comment: Order Date: 09/28/24Order Info: 0184-1 - CBCD Performed By: #### L 506.0400, L500.4050, L501.9985, L506.1000, L100.0100, L501.9520, L500.4100 ####[facility] [address] [place], [address] MCV (RBC) [Entitic vol] 92.0 fL Normal 81-99 [facility] Comment on above: Order Comment: Order Date: 09/28/24Order Info: 0184-1 - CBCD Performed By: #### L 506.0400, L500.4050, L501.9985, L506.1000, L100.0100, L501.9520, L500.4100 ####[facility] [address] [place], [address] Monocytes/100 WBC (Bld) 6.1 % Normal 0-10 [facility] Comment on above: Order Comment: Order Date: 09/28/24Order Info: 0184-1 - CBCD Performed By: #### L 506.0400, L500.4050, L501.9985, L506.1000, L100.0100, L501.9520, L500.4100 ####[facility] [address] [place], [address] Neutrophils/100 WBC (Bld) 64.4 % Normal 47-70 [facility] Comment on above: Order Comment: Order Date: 09/28/24Order Info: [id number] - CBCD Performed By: #### L 506.0400, L500.4050, L501.9985, L506.1000, L100.0100, L501.9520, L500.4100 ####[facility] [address] [place], [address] Nucleated RBC (Bld) [#/Vol] 0 10*3/uL Normal 0-5 [facility] Comment on above: Order Comment: Order Date: 09/28/24Order Info: [id number] - CBCD Performed By: #### L 506.0400, L500.4050, L501.9985, L506.1000, L100.0100, L501.9520, L500.4100 ####[facility] [address] [place], [address] Platelet mean volume (Bld) [Entitic vol] 9.7 fL Normal 6.2-12.0 [facility] Comment on above: Order Comment: Order Date: 09/28/24Order Info: [id number] - CBCD Performed By: #### L 506.0400, L500.4050, L501.9985, L506.1000, L100.0100, L501.9520, L500.4100 ####[facility] [address] [place], [address] Platelets (Bld) [#/Vol] 198 10*3/uL Normal 150-450 [facility] Comment on above: Order Comment: Order Date: 09/28/24Order Info: [id number] - CBCD Performed By: #### L 506.0400, L500.4050, L501.9985, L506.1000, L100.0100, L501.9520, L500.4100 ####[facility] [address] [place], [address] RBC (Bld) [#/Vol] 4.85 10*6/uL Normal 4.2-5.4 [facility] Comment on above: Order Comment: Order Date: 09/28/24Order Info: [id number] - CBCD Performed By: #### L 506.0400, L500.4050, L501.9985, L506.1000, L100.0100, L501.9520, L500.4100 ####[facility] [address] [place], [address] RDW SD 42.5 fl Normal 35.1-43.9 [facility] Comment on above: Order Comment: Order Date: 09/28/24Order Info: [id number] - CBCD Performed By: #### L 506.0400, L500.4050, L501.9985, L506.1000, L100.0100, L501.9520, L500.4100 ####[facility] [address] [place], [address] WBC (Bld) [#/Vol] 7.9 10*3/uL Normal 4.4-11.0 [facility] Comment on above: Order Comment: Order Date: 09/28/24Order Info: [id number] - CBCD Performed By: #### L 506.0400, L500.4050, L501.9985, L506.1000, L100.0100, L501.9520, L500.4100 ####[facility] [address] [place], [address] Carbon dioxide measurementOr dered By: Terrance Alonso on 10-02-2024 CO2 [Moles/Vol] 27.0 mmol/L 21.0-32.0 [facility] Chloride measurementOrdered By: Terrance Alonso on 10-02-2024 Chloride [Moles/Vol] 108 mmol/L High 98-107 [facility] Comprehensive Metabolic Prof ilon 10-02-2024 Albumin [Mass/Vol] 3.5 g/dL Normal 3.2-5.0 [facility] Comment on above: Order Comment: Order Date: 09/28/24Order Info: [id number] - CMPOrder Info: [id number] - LIPIDOrder Info: 6-3 - TSHOrder Info: [id number] - T4F Performed By: #### L 506.0400, L500.4050, L501.9985, L506.1000, L100.0100, L501.9520, L500.4100 ####[facility] [address] [place], [address] Albumin/Globulin [Mass ratio] 0.9 {ratio} Normal 0.9-2.4 [facility] Comment on above: Order Comment: Order Date: 09/28/24Order Info: [id number] - CMPOrder Info: [id number] - LIPIDOrder Info: [id number] - TSHOrder Info: [id number] - T4F Performed By: #### L 506.0400, L500.4050, L501.9985, L506.1000, L100.0100, L501.9520, L500.4100 ####[facility] [address] [place], [address] ALK P 62 U/L Normal 45-117 [facility] Comment on above: Order Comment: Order Date: 09/28/24Order Info: [id number] - CMPOrder Info: [id number] - LIPIDOrder Info: [id number] - TSHOrder Info: [id number] - T4F Performed By: #### L 506.0400, L500.4050, L501.9985, L506.1000, L100.0100, L501.9520, L500.4100 ####[facility] [address] [place], [address] ALT [Catalytic activity/Vol] 46 U/L Normal 13-56 [facility] Comment on above: Order Comment: Order Date: 09/28/24Order Info: [id number] - CMPOrder Info: [id number] - LIPIDOrder Info: 6-3 - TSHOrder Info: [id number] - T4F Performed By: #### L 506.0400, L500.4050, L501.9985, L506.1000, L100.0100, L501.9520, L500.4100 ####[facility] [address] [place], [address] AST [Catalytic activity/Vol] 36 U/L Normal 15-37 [facility] Comment on above: Order Comment: Order Date: 09/28/24Order Info: [id number] - CMPOrder Info: [id number] - LIPIDOrder Info: [id number] - TSHOrder Info: [id number] - T4F Performed By: #### L 506.0400, L500.4050, L501.9985, L506.1000, L100.0100, L501.9520, L500.4100 ####[facility] [address] [place], [address] Bilirubin [Mass/Vol] 0.60 mg/dL Normal 0.20-1.00 [facility] Comment on above: Order Comment: Order Date: 09/28/24Order Info: [id number] - CMPOrder Info: [id number] - LIPIDOrder Info: 6-3 - TSHOrder Info: [id number] - T4F Result Comment: For patients on eltrombopag therapy, use of Dimension [place] TBIL is not recommended. Performed By: #### L 506.0400, L500.4050, L501.9985, L506.1000, L100.0100, L501.9520, L500.4100 ####[facility] [address] [place], [address] BUN/CRE 22.5 RATIO High 10-20 [facility] Comment on above: Order Comment: Order Date: 09/28/24Order Info: 07- - CMPOrder Info: - LIPIDOrder Info: 3 - TSHOrder Info: [id number] - T4F Performed By: #### L 506.0400, L500.4050, L501.9985, L506.1000, L100.0100, L501.9520, L500.4100 ####[facility] [address] [place], [address] CA,Total 10.1 mg/dL Normal 8.5-10.1 [facility] Comment on above: Order Comment: Order Date: 09/28/24Order Info: 07-1 - CMPOrder Info: [id number] - LIPIDOrder Info: [id number] - TSHOrder Info: [id number] - T4F Performed By: #### L 506.0400, L500.4050, L501.9985, L506.1000, L100.0100, L501.9520, L500.4100 ####[facility] [address] [place], [address] Chloride [Moles/Vol] 108 mmol/L High 98-107 [facility] Comment on above: Order Comment: Order Date: 09/28/24Order Info: [id number] - CMPOrder Info: [id number] - LIPIDOrder Info: [id number] - TSHOrder Info: [id number] - T4F Performed By: #### L 506.0400, L500.4050, L501.9985, L506.1000, L100.0100, L501.9520, L500.4100 ####[facility] [address] [place], [address] CO2 [Moles/Vol] 27.0 mmol/L Normal 21.0-32.0 [facility] Comment on above: Order Comment: Order Date: 09/28/24Order Info: [id number] - CMPOrder Info: [id number] - LIPIDOrder Info: 3 - TSHOrder Info: [id number] - T4F Performed By: #### L 506.0400, L500.4050, L501.9985, L506.1000, L100.0100, L501.9520, L500.4100 ####[facility] [address] [place], [address] Creatinine [Mass/Vol] 0.85 mg/dL Normal 0.55-1.02 [facility] Comment on above: Order Comment: Order Date: 09/28/24Order Info: [id number] - CMPOrder Info: [id number] - LIPIDOrder Info: 3 - TSHOrder Info: [id number] - T4F Result Comment: The validity of the calculated GFR GFRAA in patients over 70 years has not been determined. Clinical correlation is essential. Performed By: #### L 506.0400, L500.4050, L501.9985, L506.1000, L100.0100, L501.9520, L500.4100 ####[facility] [address] [place], [address] EST GFR - AA 84 mL/min Normal >60 [facility] Comment on above: Order Comment: Order Date: 09/28/24Order Info: [id number] - CMPOrder Info: - LIPIDOrder Info: [id number] - TSHOrder Info: 7 - T4F Result Comment: Afri can Welsh GFR Calc Performed By: #### L 506.0400, L500.4050, L501.9985, L506.1000, L100.0100, L501.9520, L500.4100 ####[facility] [address] [place], [address] GAP 5 Normal 5-15 [facility] Comment on above: Order Comment: Order Date: 09/28/24Order Info: 785- - CMPOrder Info: - LIPIDOrder Info: [id number] - TSHOrder Info: 7 - T4F Performed By: #### L 506.0400, L500.4050, L501.9985, L506.1000, L100.0100, L501.9520, L500.4100 ####[facility] [address] [place], [address] GFR/1.73 sq M.predicted among non-blacks MDRD (S/P/Bld) [Vol rate/Area] 69 mL/min/{1.73_m2} Normal >60 [facility] Comment on above: Order Comment: Order Date: 09/28/24Order Info: 0786- - CMPOrder Info: - LIPIDOrder Info: [id number] - TSHOrder Info: 7 - T4F Result Comment: Non- GFR Calc Performed By: #### L 506.0400, L500.4050, L501.9985, L506.1000, L100.0100, L501.9520, L500.4100 ####[facility] [address] [place], [address] Globulin (S) [Mass/Vol] 3.9 g/dL Normal 2.2-4.2 [facility] Comment on above: Order Comment: Order Date: 09/28/24Order Info: 07- - CMPOrder Info: [id number] - LIPIDOrder Info: [id number] - TSHOrder Info: 7 - T4F Performed By: #### L 506.0400, L500.4050, L501.9985, L506.1000, L100.0100, L501.9520, L500.4100 ####[facility] [address] [place], [address] Glucose [Mass/Vol] 138 mg/dL High 74-106 [facility] Comment on above: Order Comment: Order Date: 09/28/24Order Info: 86-1 - CMPOrder Info: - LIPIDOrder Info: [id number] - TSHOrder Info: [id number] - T4F Result Comment: Fast ing Glucose result greater than or equal to 126 mg/dL suggests DIABETES MELLITUS per A.D.A. criteria. Performed By: #### L 506.0400, L500.4050, L501.9985, L506.1000, L100.0100, L501.9520, L500.4100 ####[facility] [address] [place], [address] Potassium [Moles/Vol] 4.2 mmol/L Normal 3.5-5.1 [facility] Comment on above: Order Comment: Order Date: 09/28/24Order Info: 07-1 - CMPOrder Info: [id number] - LIPIDOrder Info: [id number] - TSHOrder Info: 7 - T4F Performed By: #### L 506.0400, L500.4050, L501.9985, L506.1000, L100.0100, L501.9520, L500.4100 ####[facility] [address] [place], [address] Sodium [Moles/Vol] 140 mmol/L Normal 136-145 [facility] Comment on above: Order Comment: Order Date: 09/28/24Order Info: [id number] - CMPOrder Info: - LIPIDOrder Info: [id number] - TSHOrder Info: [id number] - T4F Performed By: #### L 506.0400, L500.4050, L501.9985, L506.1000, L100.0100, L501.9520, L500.4100 ####[facility] [address] [place], [place], [address] T PROT 7.4 g/dL Normal 6.4-8.2 [facility] Comment on above: Order Comment: Order Date: 09/28/24Order Info: [id number] - CMPOrder Info: [id number] - LIPIDOrder Info: 3 - TSHOrder Info: [id number] - T4F Performed By: #### L 506.0400, L500.4050, L501.9985, L506.1000, L100.0100, L501.9520, L500.4100 ####[facility] [address] [place], [place], [address] Urea nitrogen [Mass/Vol] 19 mg/dL High 03-01 [facility] Comment on above: Order Comment: Order Date: 09/28/24Order Info: [id number] - CMPOrder Info: [id number] - LIPIDOrder Info: [id number] - TSHOrder Info: [id number] - T4F Performed By: #### L 506.0400, L500.4050, L501.9985, L506.1000, L100.0100, L501.9520, L500.4100 ####[facility] [address] [place], [address] Direct serum free thyroxine (FT4) measurementOrdered By: Terrance Alonso on 10-02-2024 Free T4 [Mass/Vol] 1.41 ng/dL 0.76-1.46 [facility] Eosinophil percentageOrdered By: Terrance Alonso on 10-02-2024 Eosinophils/100 WBC (Bld) 3.2 % 0-5 [facility] Erythrocyte distribution wid th ratioOrdered By: Terrance Alonso on 10-02-2024 Erythrocyte distribution width (RBC) [Ratio] 12.5 % 11.6-14.6 [facility] Erythrocyte distribution wid th standard deviationOrdered By: Terrance Alonso on 10-02-2024 Erythrocyte distribution width (RBC) [Ratio] 42.5 fl 35.1-43.9 [facility] Glomerular filtration rate ( GFR) estimationOrdered By: Terrance Alonso on 10-02-2024 GFR/1.73 sq M.predicted among non-blacks MDRD (S/P/Bld) [Vol rate/Area] 69 mL/min/{1.73_m2} >60 [facility] Comment on above: Non- GFR Calc Glucose measurementOrdered B y: Terrance Alonso on 10-02-2024 Glucose [Mass/Vol] 138 mg/dL High 74-106 [facility] Comment on above: Fasting Glucose resu lt greater than or equal to 126 mg/dL suggests DIABETES MELLITUS per A.D.A. criteria. Hematocrit Auto (Bld) [Volum e fraction]Ordered By: Terrance Alonso on 10-02-2024 Hematocrit (Bld) [Volume fraction] 44.6 % 37-47 [facility] Hemoglobin A1con 10-02-2024 HbA1c (Bld) [Mass fraction] 6.6 % High 3.8-5.6 [facility] Comment on above: Order Comment: Order Date: 09/28/24Order Info: [id number] - A1C Result Comment: Norm al < 5.7 % Prediabetic 5.7 - 6.4 % Diabetic >or= 6.5 % Please note range changes. Performed By: #### L 506.0400, L500.4050, L501.9985, L506.1000, L100.0100, L501.9520, L500.4100 ####[facility] [address] [place], [address] Hemoglobin A1c percentageOrd ered By: Terrance Alonso on 10-02-2024 HbA1c (Bld) [Mass fraction] 6.6 % High 3.8-5.6 [facility] Comment on above: Normal < 5.7 % Predi abetic 5.7 - 6.4 % Diabetic >or= 6.5 % Please note range changes. Hemoglobin measurementOrdere d By: Terrance Alonso on 10-02-2024 Hemoglobin (Bld) [Mass/Vol] 14.4 g/dL 12.0-15.0 [facility] High density lipoprotein (HD L) measurementOrdered By: Terrance Alonso on 10-02-2024 Cholesterol in HDL [Mass/Vol] 71 mg/dL >40 [facility] Comment on above: The drugs N-Acetylcy steine and Metamizole may falsely depress this assay. Reference Range HDL <40 mg/dL Low HDL Cholesterol HDL >or= 60 mg/dL High HDL Cholesterol Immature granulocytes/100 WB C Auto (Bld)Ordered By: Terrance Alonso on 10-02-2024 Immature granulocytes/100 WBC (Bld) 0.400 % 0.0-0.9 [facility] Comment on above: IG% - Immature Granu locytes (promyelocytes, myelocytes and metamyelocytes) > 1% indicates that a LEFT SHIFT is Present. Laboratory - Chemistry and C hemistry - challengeOrdered By: Terrance Alonso on 10-02-2024 AST [Catalytic activity/Vol] 36 U/L 15-37 [facility] Lipid Profileon 10-02-2024 Cholesterol [Mass/Vol] 135 mg/dL Normal 200 [facility] Comment on above: Order Comment: Order Date: 09/28/24Order Info: [id number] - CMPOrder Info: [id number] - LIPIDOrder Info: [id number] - TSHOrder Info: [id number] - T4F Result Comment: <200 mg/dL Desirable 200-240 mg/dL Borderline >240 mg/dL High Risk Performed By: #### L 506.0400, L500.4050, L501.9985, L506.1000, L100.0100, L501.9520, L500.4100 ####[facility] [address] [place], [place], [id number] Cholesterol in HDL [Mass/Vol] 71 mg/dL Normal [facility] Comment on above: Order Comment: Order Date: 09/28/24Order Info: [id number] - CMPOrder Info: [id number] - LIPIDOrder Info: [id number] - TSHOrder Info: [id number] - T4F Result Comment: The drugs N-Acetylcysteine and Metamizole may falsely depress this assay. Reference Range HDL <40 mg/dL Low HDL Cholesterol HDL >or= 60 mg/dL High HDL Cholesterol Performed By: #### L 506.0400, L500.4050, L501.9985, L506.1000, L100.0100, L501.9520, L500.4100 ####[facility] [address] [place], [address] Cholesterol in LDL [Mass/Vol] 49 mg/dL Normal 0-130 [facility] Comment on above: Order Comment: Order Date: 09/28/24Order Info: [id number] - CMPOrder Info: [id number] - LIPIDOrder Info: [id number] - TSHOrder Info: [id number] - T4F Performed By: #### L 506.0400, L500.4050, L501.9985, L506.1000, L100.0100, L501.9520, L500.4100 ####[facility] [address] [place], [address] Cholesterol in VLDL [Mass/Vol] 15 mg/dL Normal 5-40 [facility] Comment on above: Order Comment: Order Date: 09/28/24Order Info: 07-1 - CMPOrder Info: [id number] - LIPIDOrder Info: 3 - TSHOrder Info: [id number] - T4F Performed By: #### L 506.0400, L500.4050, L501.9985, L506.1000, L100.0100, L501.9520, L500.4100 ####[facility] [address] [place], [address] Triglyceride [Mass/Vol] 75 mg/dL Normal [facility] Comment on above: Order Comment: Order Date: 09/28/24Order Info: [id number] - CMPOrder Info: [id number] - LIPIDOrder Info: 3 - TSHOrder Info: 7 - T4F Result Comment: The drugs N-Acetylcysteine and Metamizole may falsely depress this assay. Serum Triglycerides Reference Interval Normal <150 mg/dL Borderline high 150 - 199 mg/dL High 200 - 499 mg/dL Very High > or = 500 mg/dL Performed By: #### L 506.0400, L500.4050, L501.9985, L506.1000, L100.0100, L501.9520, L500.4100 ####[facility] [address] [place], [address] Low density lipoprotein (LDL ) cholesterol measurementOrdered By: Terrance Alonso on 10-02-2024 Cholesterol in LDL [Mass/Vol] 49 mg/dL 0-130 [facility] MCV (mean corpuscular volume ) determinationOrdered By: Terrance Alonso on 10-02-2024 MCV (RBC) [Entitic vol] 92.0 fL 81-99 [facility] Mean corpuscular hemoglobin (MCH) determinationOrdered By: Terrance Alonso on 10-02-2024 MCH (RBC) [Entitic mass] 29.7 pg 27.0-32.0 [facility] Mean corpuscular hemoglobin concentration (MCHC) determinationOrdered By: Terrance Alonso on 10-02-2024 MCHC (RBC) [Mass/Vol] 32.3 g/dL 32-36 [facility] Mean platelet volume determi nationOrdered By: Terrance Alonso on 10-02-2024 Platelet mean volume (Bld) [Entitic vol] 9.7 fL 6.2-12.0 [facility] Monocyte percentageOrdered B y: Terrance Alonso on 10-02-2024 Monocytes/100 WBC (Bld) 6.1 % 0-10 [facility] Neutrophil percentageOrdered By: Terrance Alonso on 10-02-2024 Neutrophils/100 WBC (Bld) 64.4 % 47-70 [facility] Nucleated red blood cell per centageOrdered By: Terrance Alonso on 10-02-2024 Nucleated RBC/100 WBC (Bld) [Ratio] 0 % 0-5 [facility] Platelet countOrdered By: Thi Alonso on 10-02-2024 Platelets (Bld) [#/Vol] 198 10*3/uL 150-450 [facility] Potassium measurementOrdered By: Terrance Alonso on 10-02-2024 Potassium [Moles/Vol] 4.2 mmol/L 3.5-5.1 [facility] RBC Auto (Bld) [#/Vol]Ordere d By: Terrance Alonso on 10-02-2024 RBC (Bld) [#/Vol] 4.85 10*6/uL 4.2-5.4 [facility] Serum anion gap measurementO rdered By: Terrance Alonso on 10-02-2024 Anion gap [Moles/Vol] 5 mmol/L 5-15 [facility] Serum globulin measurementOr dered By: Terrance Alonso on 10-02-2024 Globulin (S) [Mass/Vol] 3.9 g/dL 2.2-4.2 [facility] Serum or plasma alanine trent otransferase (ALT) measurementOrdered By: Terrance Alonso on 10-02-2024 ALT [Catalytic activity/Vol] 46 U/L 13-56 [facility] Serum or plasma albumin giovanni urement (mass/volume)Ordered By: Terrance Alonso on 10-02-2024 Albumin [Mass/Vol] 3.5 g/dL 3.2-5.0 [facility] Serum or plasma alkaline tavon sphatase measurementOrdered By: Terrance Alonso on 10-02-2024 ALP [Catalytic activity/Vol] 62 U/L 45-117 [facility] Serum or plasma calcium giovanni urement (mass/volume)Ordered By: Terrance Alonso on 10-02-2024 Calcium [Mass/Vol] 10.1 mg/dL 8.5-10.1 [facility] Serum or plasma cholesterol measurement (mass/volume)Ordered By: Terrance Alonso on 10-02-2024 Cholesterol [Mass/Vol] 135 mg/dL <200 [facility] Comment on above: <200 mg/dL Desirable 200-240 mg/dL Borderline >240 mg/dL High Risk Serum or plasma creatinine m easurement (mass/volume)Ordered By: Terrance Alonso on 10-02-2024 Creatinine [Mass/Vol] 0.85 mg/dL 0.55-1.02 [facility] Comment on above: The validity of the calculated GFR & GFRAA in patients over 70 years has not been determined. Clinical correlation is essential. Serum or plasma thyroid stim ulating hormone (TSH) measurement (units/volume)Ordered By: Terrance Alonso on 10-02-2024 TSH Qn 2.690 uIU/mL 0.358-3.[address] [facility] Serum or plasma urea nitroge n measurement (mass/volume)Ordered By: Terrance Alonso on 10-02-2024 Urea nitrogen [Mass/Vol] 19 mg/dL High 03-01 [facility] Sodium levelOrdered By: Terrance Alonso on 10-02-2024 Sodium [Moles/Vol] 140 mmol/L 136-145 [facility] T4 Free Directon 10-02-2024 T4 FREE DIRECT 1.41 ng/dL Normal 0.76-1.46 [facility] Comment on above: Order Comment: Order Date: 09/28/24Order Info: [id number] - CMPOrder Info: [id number] - LIPIDOrder Info: [id number] - TSHOrder Info: [id number] - T4F Performed By: #### L 506.0400, L500.4050, L501.9985, L506.1000, L100.0100, L501.9520, L500.4100 ####[facility] [address] [place], [place], [phone] Thyroid Stim Hormone (TSH)on 10-02-2024 TSH 2.690 uIU/mL Normal 0.358-3.[address] [facility] Comment on above: Order Comment: Order Date: 09/28/24Order Info: [id number] - CMPOrder Info: [id number] - LIPIDOrder Info: [id number] - TSHOrder Info: [id number] - T4F Performed By: #### L 506.0400, L500.4050, L501.9985, L506.1000, L100.0100, L501.9520, L500.4100 ####[facility] [address] [place], [place], [phone]) Total proteinOrdered By: Rodríguez Alonso on 10-02-2024 Protein [Mass/Vol] 7.4 g/dL 6.4-8.2 [facility] Triglycerides measurementOrd ered By: Terrance Alonso on 10-02-2024 Triglyceride [Mass/Vol] 75 mg/dL <199 [facility] Comment on above: The drugs N-Acetylcy steine and Metamizole may falsely depress this assay.Serum Triglycerides Reference Interval Normal <150 mg/dL Borderline high 150 - 199 mg/dL High 200 - 499 mg/dL Very High > or = 500 mg/dL Very low density lipoprotein (VLDL) cholesterol measurementOrdered By: Terrance Alonso on 10-02-2024 Very low density lipoprotein (VLDL) cholesterol measurement 15 mg/dL 5-40 [facility] White blood cell (WBC) count Ordered By: Terrance Alonso on 10-02-2024 WBC (Bld) [#/Vol] 7.9 10*3/uL 4.4-11.0 [facility] Chest PA and Lateralon 09-07 Chest PA and Lateral [facility] [address] [place] [id number] Chest PA and Lateral MR#: [id number] Acct: [id number] Name: SUSAN CHANDLER Rep #: [id number] : 1945 F 79 From: [place] MD PCP: Dr. Terrance Alonso MD Status: [facility] Study: Chest PA and Lateral Date of Exam: 09/07/24 Exam# [id number] Ordering Dr: Terrance Alonso MD [id number] STUDY: X-RAY CHEST REASON FOR EXAM: Female, 79 years old. CAP TECHNIQUE: PA and lateral views of the chest. COMPARISON: Comparison is made with prior study dated March 02, 2023. FINDINGS: EKG electrodes are seen. There is hyperinflation of the lungs consistent with chronic obstructive lung disease (COPD). There is no demonstrated pleural abnormality. Normal size heart. Normal mediastinum and jose. Normal visualized pulmonary arteries. There is atherosclerotic calcification of the aortic arch with tortuosity. There are degenerative changes of the visualized thoracic spine. Status post right shoulder replacement. Prior fusion of the lumbar spine. Electrodes from a spinal cord stimulator device are seen. RAD/Chest PA and Lateral IMPRESSION: Hyperinflation. No acute abnormality is seen. Electronically Signed: Nato Gates MD at 13:55 EST , CC: Dr. Terrance Alonso MD [employer] Crm Developer: Signed Normal [facility] Knee 4 or More Viewson 07-26 Knee 4 or More Views [facility] [address] [place] [address] Knee 4 or More Views MR#: [id number] Acct: [id number] Name: SUSAN CHANDLER Rep #: [id number] : 1945 F 79 From: Chidi carvalho MD PCP: Dr. Terrance Alonso MD Status: REG CLI Study: Knee 4 or More Views Date of Exam: 07/26/24 Exam# [id number] Ordering Dr: Charito Mclaughlin [id number] INDICATION: RIGHT KNEE PAIN HX RIGHT TKR EXAMINATION/TECHNIQUE: X-RAY - RIGHT XR Knee Complete 4 Views or More 4 VIEWS COMPARISON: No relevant prior comparison study available FINDINGS: There is a total right knee arthroplasty. Longstem femoral and tibial components. The femoral component articulates appropriately with the tibial and patellar components. No joint effusion. No periprosthetic lucency or fracture. RAD/Knee 4 or More Views IMPRESSION: Total right knee arthroplasty without evidence of failure. Electronically Signed: Chidi Diallo MD at 5:59 EST , CC: Charito Mclaughlin; Dr. Terrance Alonso MD [employer] Developer: Signed Normal [facility] CBC W/Diff, Automatedon 07-15 Absolute Lymph 1.80 X10 3/uL Normal 0.83-4.51 [facility] Comment on above: Order Comment: Order Date: 07/24/24Order Info: [id number] - CBCD Performed By: #### L 100.0100 ####[facility] [address] [place], [address] Absolute Neut 6.4 X10 3/uL Normal 2.0-7.7 [facility] Comment on above: Order Comment: Order Date: 07/24/24Order Info: 018-1 - CBCD Performed By: #### L 100.0100 ####[facility] [address] [place], [address] Basophils/100 WBC (Bld) 0.6 % Normal 0-1 [facility] Comment on above: Order Comment: Order Date: 07/24/24Order Info: 0184-1 - CBCD Performed By: #### L 100.0100 ####[facility] [address] [place], [address] Eosinophils/100 WBC (Bld) 2.0 % Normal 0-5 [facility] Comment on above: Order Comment: Order Date: 07/24/24Order Info: 0184-1 - CBCD Performed By: #### L 100.0100 ####[facility] [address] [place], [address] Erythrocyte distribution width (RBC) [Ratio] 13.1 % Normal 11.6-14.6 [facility] Comment on above: Order Comment: Order Date: 07/24/24Order Info: 018- - CBCD Performed By: #### L 100.0100 ####[facility] [address] [place], [address] Hematocrit (Bld) [Volume fraction] 44.0 % Normal 37-47 [facility] Comment on above: Order Comment: Order Date: 07/24/24Order Info: 018- - CBCD Performed By: #### L 100.0100 ####[facility] [address] [place], [address] Hemoglobin (Bld) [Mass/Vol] 13.9 g/dL Normal 12.0-15.0 [facility] Comment on above: Order Comment: Order Date: 07/24/24Order Info: 018- - CBCD Performed By: #### L 100.0100 ####[facility] [address] [place], [address] IG% 0.600 Normal 0.0-0.9 [facility] Comment on above: Order Comment: Order Date: 07/24/24Order Info: 018- - CBCD Result Comment: IG% - Immature Granulocytes (promyelocytes, myelocytes and metamyelocytes) > 1% indicates that a LEFT SHIFT is Present. Performed By: #### L 100.0100 ####[facility] [address] [place], [address] Lymphocytes/100 WBC (Bld) 19.4 % Normal 19-41 [facility] Comment on above: Order Comment: Order Date: 07/24/24Order Info: 018- - CBCD Performed By: #### L 100.0100 ####[facility] [address] [place], [address] MCH (RBC) [Entitic mass] 29.0 pg Normal 27.0-32.0 [facility] Comment on above: Order Comment: Order Date: 07/24/24Order Info: 4-1 - CBCD Performed By: #### L 100.0100 ####[facility] [address] [place], [address] MCHC (RBC) [Mass/Vol] 31.6 g/dL Low 32-36 [facility] Comment on above: Order Comment: Order Date: 07/24/24Order Info: 4-1 - CBCD Performed By: #### L 100.0100 ####[facility] [address] [place], [address] MCV (RBC) [Entitic vol] 91.9 fL Normal 81-99 [facility] Comment on above: Order Comment: Order Date: 07/24/24Order Info: 4- - CBCD Performed By: #### L 100.0100 ####[facility] [address] [place], [address] Monocytes/100 WBC (Bld) 8.1 % Normal 0-10 [facility] Comment on above: Order Comment: Order Date: 07/24/24Order Info: 4-1 - CBCD Performed By: #### L 100.0100 ####[facility] [address] [place], [address] Neutrophils/100 WBC (Bld) 69.3 % Normal 47-70 [facility] Comment on above: Order Comment: Order Date: 07/24/24Order Info: 0184-1 - CBCD Performed By: #### L 100.0100 ####[facility] [address] [place], [address] Nucleated RBC (Bld) [#/Vol] 0 10*3/uL Normal 0-5 [facility] Comment on above: Order Comment: Order Date: 07/24/24Order Info: 0184-1 - CBCD Performed By: #### L 100.0100 ####[facility] [address] [place], [address] Platelet mean volume (Bld) [Entitic vol] 9.9 fL Normal 6.2-12.0 [facility] Comment on above: Order Comment: Order Date: 07/24/24Order Info: 4-1 - CBCD Performed By: #### L 100.0100 ####[facility] [address] [place], [address] Platelets (Bld) [#/Vol] 193 10*3/uL Normal 150-450 [facility] Comment on above: Order Comment: Order Date: 07/24/24Order Info: 183-1 - CBCD Performed By: #### L 100.0100 ####[facility] [address] [place], [address] RBC (Bld) [#/Vol] 4.79 10*6/uL Normal 4.2-5.4 [facility] Comment on above: Order Comment: Order Date: 07/24/24Order Info: 183-1 - CBCD Performed By: #### L 100.0100 ####[facility] [address] [place], [address] RDW SD 44.7 fl High 35.1-43.9 [facility] Comment on above: Order Comment: Order Date: 07/24/24Order Info: 183-1 - CBCD Performed By: #### L 100.0100 ####[facility] [address] [place], [address] WBC (Bld) [#/Vol] 9.3 10*3/uL Normal 4.4-11.0 [facility] Comment on above: Order Comment: Order Date: 07/24/24Order Info: 4-1 - CBCD Performed By: #### L 100.0100 ####[facility] [address] [place], [address] Comprehensive Metabolic Prof ilon 07-25-2024 Albumin [Mass/Vol] 3.5 g/dL Normal 3.2-5.0 [facility] Comment on above: Order Comment: Order Date: 03/15/24Order Info: 0786-1 - CMPOrder Info: [id number] - LIPID Performed By: #### L 502.0250, L500.4050, L506.1000, L500.4100, L501.9985 ####[facility] [address] [place], [address] Albumin/Globulin [Mass ratio] 1.0 {ratio} Normal 0.9-2.4 [facility] Comment on above: Order Comment: Order Date: 03/15/24Order Info: 0786-1 - CMPOrder Info: [id number] - LIPID Performed By: #### L 502.0250, L500.4050, L506.1000, L500.4100, L501.9985 ####[facility] [address] [place], [address] ALK P 65 U/L Normal 45-117 [facility] Comment on above: Order Comment: Order Date: 03/15/24Order Info: 0786-1 - CMPOrder Info: [id number] - LIPID Performed By: #### L 502.0250, L500.4050, L506.1000, L500.4100, L501.9985 ####[facility] [address] [place], [address] ALT [Catalytic activity/Vol] 40 U/L Normal 13-56 [facility] Comment on above: Order Comment: Order Date: 03/15/24Order Info: 0786-1 - CMPOrder Info: [id number] - LIPID Performed By: #### L 502.0250, L500.4050, L506.1000, L500.4100, L501.9985 ####[facility] [address] [place], [address] AST [Catalytic activity/Vol] 31 U/L Normal 15-37 [facility] Comment on above: Order Comment: Order Date: 03/15/24Order Info: 0786-1 - CMPOrder Info: [id number] - LIPID Performed By: #### L 502.0250, L500.4050, L506.1000, L500.4100, L501.9985 ####[facility] [address] [place], [address] Bilirubin [Mass/Vol] 0.40 mg/dL Normal 0.20-1.00 [facility] Comment on above: Order Comment: Order Date: 03/15/24Order Info: 0786-1 - CMPOrder Info: [id number] - LIPID Result Comment: For patients on eltrombopag therapy, use of Dimension [place] TBIL is not recommended. Performed By: #### L 502.0250, L500.4050, L506.1000, L500.4100, L501.9985 ####[facility] [address] [place], [address] BUN/CRE 27.8 RATIO High 10-20 [facility] Comment on above: Order Comment: Order Date: 03/15/24Order Info: 0786-1 - CMPOrder Info: [id number] - LIPID Performed By: #### L 502.0250, L500.4050, L506.1000, L500.4100, L501.9985 ####[facility] [address] [place], [address] CA,Total 9.7 mg/dL Normal 8.5-10.1 [facility] Comment on above: Order Comment: Order Date: 03/15/24Order Info: 0786-1 - CMPOrder Info: [id number] - LIPID Performed By: #### L 502.0250, L500.4050, L506.1000, L500.4100, L501.9985 ####[facility] [address] [place], [address] Chloride [Moles/Vol] 108 mmol/L High 98-107 [facility] Comment on above: Order Comment: Order Date: 03/15/24Order Info: 0786-1 - CMPOrder Info: [id number] - LIPID Performed By: #### L 502.0250, L500.4050, L506.1000, L500.4100, L501.9985 ####[facility] [address] [place], [address] CO2 [Moles/Vol] 25.0 mmol/L Normal 21.0-32.0 [facility] Comment on above: Order Comment: Order Date: 03/15/24Order Info: 07-1 - CMPOrder Info: [id number] - LIPID Performed By: #### L 502.0250, L500.4050, L506.1000, L500.4100, L501.9985 ####[facility] [address] [place], [address] Creatinine [Mass/Vol] 0.79 mg/dL Normal 0.55-1.02 [facility] Comment on above: Order Comment: Order Date: 03/15/24Order Info: 07-1 - CMPOrder Info: [id number] - LIPID Result Comment: The validity of the calculated GFR GFRAA in patients over 70 years has not been determined. Clinical correlation is essential. Performed By: #### L 502.0250, L500.4050, L506.1000, L500.4100, L501.9985 ####[facility] [address] [place], [address] EST GFR - AA 91 mL/min Normal >60 [facility] Comment on above: Order Comment: Order Date: 03/15/24Order Info: 0786-1 - CMPOrder Info: [id number] - LIPID Result Comment: Afri can Welsh GFR Calc Performed By: #### L 502.0250, L500.4050, L506.1000, L500.4100, L501.9985 ####[facility] [address] [place], [address] GAP 5 Normal 5-15 [facility] Comment on above: Order Comment: Order Date: 03/15/24Order Info: 0786-1 - CMPOrder Info: [id number] - LIPID Performed By: #### L 502.0250, L500.4050, L506.1000, L500.4100, L501.9985 ####[facility] [address] [place], [place], [id number] GFR/1.73 sq M.predicted among non-blacks MDRD (S/P/Bld) [Vol rate/Area] 75 mL/min/{1.73_m2} Normal >60 [facility] Comment on above: Order Comment: Order Date: 03/15/24Order Info: 0786- - CMPOrder Info: [id number] - LIPID Result Comment: Non- GFR Calc Performed By: #### L 502.0250, L500.4050, L506.1000, L500.4100, L501.9985 ####[facility] [address] [place], [place], [id number] Globulin (S) [Mass/Vol] 3.5 g/dL Normal 2.2-4.2 [facility] Comment on above: Order Comment: Order Date: 03/15/24Order Info: 0786- - CMPOrder Info: [id number] - LIPID Performed By: #### L 502.0250, L500.4050, L506.1000, L500.4100, L501.9985 ####[facility] [address] [place], [place], [id number] Glucose [Mass/Vol] 157 mg/dL High 74-106 [facility] Comment on above: Order Comment: Order Date: 03/15/24Order Info: 0786- - CMPOrder Info: [id number] - LIPID Result Comment: Fast ing Glucose result greater than or equal to 126 mg/dL suggests DIABETES MELLITUS per A.D.A. criteria. Performed By: #### L 502.0250, L500.4050, L506.1000, L500.4100, L501.9985 ####[facility] [address] [place], [address] Potassium [Moles/Vol] 4.1 mmol/L Normal 3.5-5.1 [facility] Comment on above: Order Comment: Order Date: 03/15/24Order Info: 0786-1 - CMPOrder Info: [id number] - LIPID Performed By: #### L 502.0250, L500.4050, L506.1000, L500.4100, L501.9985 ####[facility] [address] [place], [address] Sodium [Moles/Vol] 138 mmol/L Normal 136-145 [facility] Comment on above: Order Comment: Order Date: 03/15/24Order Info: 0786- - CMPOrder Info: [id number] - LIPID Performed By: #### L 502.0250, L500.4050, L506.1000, L500.4100, L501.9985 ####[facility] [address] [place], [address] T PROT 7.0 g/dL Normal 6.4-8.2 [facility] Comment on above: Order Comment: Order Date: 03/15/24Order Info: 0786 - CMPOrder Info: [id number] - LIPID Performed By: #### L 502.0250, L500.4050, L506.1000, L500.4100, L501.9985 ####[facility] [address] [place], [address] Urea nitrogen [Mass/Vol] 22 mg/dL High 7-18 [facility] Comment on above: Order Comment: Order Date: 03/15/24Order Info: 07-1 - CMPOrder Info: [id number] - LIPID Performed By: #### L 502.0250, L500.4050, L506.1000, L500.4100, L501.9985 ####[facility] [address] [place], [address] Hemoglobin A1con 07-25-2024 HbA1c (Bld) [Mass fraction] 6.6 % High 3.8-5.6 [facility] Comment on above: Order Comment: Order Date: 03/15/24Order Info: [id number] - A1C Result Comment: Norm al < 5.7 % Prediabetic 5.7 - 6.4 % Diabetic >or= 6.5 % Please note range changes. Performed By: #### L 502.0250, L500.4050, L506.1000, L500.4100, L501.9985 ####[facility] [address] [place], [address] Lipid Profileon 07-25-2024 Cholesterol [Mass/Vol] 169 mg/dL Normal 200 [facility] Comment on above: Order Comment: Order Date: 03/15/24Order Info: 0786-1 - CMPOrder Info: [id number] - LIPID Result Comment: <200 mg/dL Desirable 200-240 mg/dL Borderline >240 mg/dL High Risk Performed By: #### L 502.0250, L500.4050, L506.1000, L500.4100, L501.9985 ####[facility] [address], [address] Cholesterol in HDL [Mass/Vol] 91 mg/dL Normal [facility] Comment on above: Order Comment: Order Date: 03/15/24Order Info: 0786-1 - CMPOrder Info: [id number] - LIPID Result Comment: The drugs N-Acetylcysteine and Metamizole may falsely depress this assay. Reference Range HDL <40 mg/dL Low HDL Cholesterol HDL >or= 60 mg/dL High HDL Cholesterol Performed By: #### L 502.0250, L500.4050, L506.1000, L500.4100, L501.9985 ####[facility] [address] [place], [address] Cholesterol in LDL [Mass/Vol] 49 mg/dL Normal 0-130 [facility] Comment on above: Order Comment: Order Date: 03/15/24Order Info: 0786-1 - CMPOrder Info: [id number] - LIPID Performed By: #### L 502.0250, L500.4050, L506.1000, L500.4100, L501.9985 ####[facility] [address] [place], [address] Cholesterol in VLDL [Mass/Vol] 29 mg/dL Normal 5-40 [facility] Comment on above: Order Comment: Order Date: 03/15/24Order Info: 0786-1 - CMPOrder Info: [id number] - LIPID Performed By: #### L 502.0250, L500.4050, L506.1000, L500.4100, L501.9985 ####[facility] [address] [place], [address] Triglyceride [Mass/Vol] 146 mg/dL Normal [facility] Comment on above: Order Comment: Order Date: 03/15/24Order Info: 0786-1 - CMPOrder Info: [id number] - LIPID Result Comment: The drugs N-Acetylcysteine and Metamizole may falsely depress this assay. Serum Triglycerides Reference Interval Normal <150 mg/dL Borderline high 150 - 199 mg/dL High 200 - 499 mg/dL Very High > or = 500 mg/dL Performed By: #### L 502.0250, L500.4050, L506.1000, L500.4100, L501.9985 ####[facility] [address] [place], [address] Microalb:Creat Ratio,Random URon 07-25-2024 Creatinine [Mass/Vol] 195.00 mg/dL Normal NO RAN GE EST. [facility] Comment on above: Order Comment: Order Date: 03/15/24Order Info: [id number] - MIACRE Performed By: #### L 502.0250, L500.4050, L506.1000, L500.4100, L501.9985 ####[facility] [address] [place], [address] MALB:CRE 10.3 mg/g CRE Normal <30 mg/g CRE [facility] Comment on above: Order Comment: Order Date: 03/15/24Order Info: [id number] - MIACRE Performed By: #### L 502.0250, L500.4050, L506.1000, L500.4100, L501.9985 ####[facility] [address] [place], [address] MICROALBUMIN,UR 20.1 mg/L Normal NO RANGE EST. [facility] Comment on above: Order Comment: Order Date: 03/15/24Order Info: [id number] - MIACRE Performed By: #### L 502.0250, L500.4050, L506.1000, L500.4100, L501.9985 ####[facility] [address] [place], [place], [id number] Vitamin D,25 Hydroxyon 07-25 Vitamin D 25-OH 31.9 ng/mL Normal [facility] Comment on above: Order Comment: Order Date: 03/15/24Order Info: [id number] - VITD25 Result Comment: Billie min D 25(OH) Status Range Deficiency <20 ng/mL (50nmol/L) Insufficiency 20 - 30 ng/mL (50 - 75 nmol/L) Sufficiency 30 - 100 ng/mL (75 - 250 nmol/L) Toxicity >100 ng/mL (>250 nmol/L) Performed By: #### L 502.0250, L500.4050, L506.1000, L500.4100, L501.9985 ####[facility] [address] [place], [id number] CNOVon 06-05-2024 CNOV Office Visit (AGHWW1 ) SUSAN CHANDLER ([id number]) 1945 F Date Time Provider Department 06/05/24 10:15 AM TATIANA SUTHERLAND AGHWW1 During your visit today, we recorded the following information about you: Respiration Weight Height 16/minute 81.6 kg 1.524 m Tatiana Sutherland MD 06/05/2024 10:57 AM Signed PAIN EVALUATION 06/05/2024 1009 Pain Level: 5 Duration Units: Months Frequency: Intermittent Susan Chandler presents for 3rd postoperative visit after right reverse total shoulder arthroplasty. Shoulder function is improving, pain improved but still some upper shoulder and neck pain. Examination of the shoulder demonstrates improvement in overhead and rotational motion. Strong deltoid contraction. No pain or feelings of instability with movement with the arm at the side Some trapezius pain with overhead lifting to 100 degrees today. IMAGING: Radiographs of the right shoulder personally reviewed today. Date of exam today. This is a 3-view shoulder exam, including AP, outlet, and axillary views. My interpretation of the examination: Stable appearance of reverse total shoulder arthroplasty without fracture or component looseing. ASSESSMENT: Good overall progress with early recovery following reverse total shoulder arthroplasty. PLAN: We discussed that she may benefit from stretching or evaluation of her neck Advance use of the shoulder as tolerated Continue daily stretching Follow-up as needed Tatiana Sutherland MD Shoulder AND Elbow Surgeon Department of Orthopaedic Surgery [facility] Referring Provider: SELF [200] Allergies As of Date: 06/05/2024 Noted Allergy Reaction PENICILLINS 11/10/2021 4 - Hives PERCOCET (OXYCODONE-ACETAMINOPHEN) 9 - Itching VICODIN (HYDROCODONE-ACETAMINOPHE*0 11/10/2021 4 - Hives Date Reviewed: 06/05/2024 Reviewed by: Juan Castro Tech - Fully Assessed Reason for Visit: Follow Up [171] Primary Visit Diagnosis: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 - ondansetron (ZOFRAN) 4 mg tablet Take 1 tablet by mouth every 8 hours as needed. - calcium polycarbophil (FIBERCON) 625 mg tablet Take 625 mg by mouth once daily. - buprenorphine (BUTRANS) 15 mcg/hour patch Apply 1 patch to skin every 7 days. Remove old patch. - FARXIGA 10 mg tablet Take 1 tablet by mouth every afternoon. - valsartan (DIOVAN) 160 mg tablet Take 160 mg by mouth every evening. - meloxicam (MOBIC) 7.5 mg tablet Take 7.5 mg by mouth once daily. - rosuvastatin (CRESTOR) 10 mg tablet Take 10 mg by mouth every evening. - traMADol (ULTRAM) 50 mg tablet Take 50 mg by mouth every 6 hours as needed for pain. - buPROPion SR (WELLBUTRIN SR) 150 mg 12 hr tablet Take 150 mg by mouth every 12 hours. - calcium carbonate (CALTRATE) 600 mg calcium (1,500 mg) tab Take 600 mg by mouth once daily. - atenolol (TENORMIN) 50 mg tablet - escitalopram oxalate (LEXAPRO) 10 mg tablet - gabapentin (NEURONTIN) 300 mg capsule Take 300 mg by mouth three times daily. - aspirin, enteric coated (ASPIRIN, ENTERIC COATED) 81 mg EC tablet Take 81 mg by mouth once daily. - traZODone (DESYREL) 50 mg tablet TAKE 2 TABLETS BY MOUTH EVERY DAY AT BEDTIME Problem List As Of Date 06/05/2024 Noted Resolved Mild intermittent asthma, uncomplicated [J45.20]04/11/2023 Essential (primary) hypertension [I10] 01/11/2023 Depressive disorder [F32.A] 02/10/2024 History of tobacco use [Z87.891] 06/10/2022 COPD (chronic obstructive pulmonary disease) (H*02/10/2024 Mixed hyperlipidemia [E78.2] 02/10/2024 RBBB [I45.10] 02/10/2024 Abnormal electrocardiogram [R94.31] 02/10/2024 Class 2 severe obesity due to excess calories w*02/10/2024 JEANNIE (obstructive sleep apnea) [G47.33] 02/10/2024 Type 2 diabetes mellitus without complication, *02/10/2024 Hypoxemia [R09.02] 02/15/2024 Grade I diastolic dysfunction [I51.89] 02/17/2024 Pulmonary hypertension (HCC) [I27.20] 02/17/2024 S/P reverse total shoulder arthroplasty, right *02/20/2024 Glenohumeral arthritis, right [M19.011] 02/27/2024 Encounter Status:Closed by TATIANA SUTHERLAND on 06/05/24 [facility] CNTHERAPYon 05-21-2024 CNTHERAPY OT/PT/Speech Visit ( PTWS) SUSAN CHANDLER ([id number]) 1945 F Date Time Provider Department 05/21/24 7:00 AM CHRISTIANO VILLAFANA PTWS Date Time Provider Department Center 05/21/2024 7:00 AM [id number], COREY PTWS [place] Reason for Visit: PT Discharge [752] Primary Visit Diagnosis:Glenohumeral arthritis, right [M19.011] Allergies As of Date: 05/21/2024 Noted Allergy Reaction PENICILLINS 11/10/2021 4 - Hives PERCOCET (OXYCODONE-ACETAMINOPHEN) 9 - Itching VICODIN (HYDROCODONE-ACETAMINOPHE*0 11/10/2021 4 - Hives Date Reviewed: 03/13/2024 Reviewed by: Brittnee oKo LPN - Fully Assessed Prescriptions as of 05/21/2024 - docusate sodium (COLACE) 100 mg capsule Take 1 capsule by mouth two times a day. - ondansetron (ZOFRAN) 4 mg tablet Take 1 tablet by mouth every 8 hours as needed. - calcium polycarbophil (FIBERCON) 625 mg tablet Take 625 mg by mouth once daily. - buprenorphine (BUTRANS) 15 mcg/hour patch Apply 1 patch to skin every 7 days. Remove old patch. - FARXIGA 10 mg tablet Take 1 tablet by mouth every afternoon. - valsartan (DIOVAN) 160 mg tablet Take 160 mg by mouth every evening. - meloxicam (MOBIC) 7.5 mg tablet Take 7.5 mg by mouth once daily. - rosuvastatin (CRESTOR) 10 mg tablet Take 10 mg by mouth every evening. - traMADol (ULTRAM) 50 mg tablet Take 50 mg by mouth every 6 hours as needed for pain. - buPROPion SR (WELLBUTRIN SR) 150 mg 12 hr tablet Take 150 mg by mouth every 12 hours. - calcium carbonate (CALTRATE) 600 mg calcium (1,500 mg) tab Take 600 mg by mouth once daily. - atenolol (TENORMIN) 50 mg tablet - escitalopram oxalate (LEXAPRO) 10 mg tablet - gabapentin (NEURONTIN) 300 mg capsule Take 300 mg by mouth three times daily. - aspirin, enteric coated (ASPIRIN, ENTERIC COATED) 81 mg EC tablet Take 81 mg by mouth once daily. - traZODone (DESYREL) 50 mg tablet TAKE 2 TABLETS BY MOUTH EVERY DAY AT BEDTIME Manager Case Management: Therapy (PT/OT/Speech/Resp) ID: [id number] 05/21/2024 7:19 AM Author: CHRISTIANO VILLAFANA Signed by CHRISTIANO VILLAFANA PT on 05/21/2024 at 7:20 AM Document text: Program_ID:[id number] Access Code: [email or web address] URL: [email or web address] Date: 05-21-2024 Prepared By: Christiano Villafana Program Notes Exercises - Single Arm Scaption with Dumbbell - 1 x daily - 7 x weekly - 4 sets - 10 reps - Seated Single Arm Bicep Curls Supinated with Dumbbell - 1 x daily - 7 x weekly - 4 sets - 10 reps - Shoulder External Rotation with Anchored Resistance - 1 x daily - 7 x weekly - 4 sets - 10 reps - Shoulder Internal Rotation with Resistance - 1 x daily - 7 x weekly - 4 sets - 10 reps Normal [facility] THERAPY NTon 05-21-2024 THERAPY NT HNO ID: [id number] Author: CHRISTIANO VILLAFANA PT Service: ? Author Type: Physical Therapist Type: Therapy (PT/OT/Speech/Resp) Filed: 05/21/2024 07:20 Note Text: Program_ID:[id number] Access Code: [email or web address] URL: [email or web address] Date: 05-21-2024 Prepared By: Christiano Villafana Program Notes Exercises - Single Arm Scaption with Dumbbell - 1 x daily - 7 x weekly - 4 sets - 10 reps - Seated Single Arm Bicep Curls Supinated with Dumbbell - 1 x daily - 7 x weekly - 4 sets - 10 reps - Shoulder External Rotation with Anchored Resistance - 1 x daily - 7 x weekly - 4 sets - 10 reps - Shoulder Internal Rotation with Resistance - 1 x daily - 7 x weekly - 4 sets - 10 reps Normal [facility] CNTHERAPYon 05-14-2024 CNTHERAPY OT/PT/Speech Visit ( PTWS) SUSAN CHANDLER ([id number]) 1945 F Date Time Provider Department 05/14/24 7:00 AM CHRISTIANO VILLAFANA PTPARAMJIT Date Time Provider Department Center 05/14/2024 7:00 AM [id number], COREY PTWS Kavin Guerra Reason for Visit: Physical Therapy [503] Primary Visit Diagnosis:Glenohumeral arthritis, right [M19.011] Allergies As of Date: 05/14/2024 Noted Allergy Reaction PENICILLINS 11/10/2021 4 - Hives PERCOCET (OXYCODONE-ACETAMINOPHEN) 9 - Itching VICODIN (HYDROCODONE-ACETAMINOPHE*0 11/10/2021 4 - Hives Date Reviewed: 03/13/2024 Reviewed by: Brittnee oKo LPN - Fully Assessed Prescriptions as of 05/14/2024 - docusate sodium (COLACE) 100 mg capsule Take 1 capsule by mouth two times a day. - ondansetron (ZOFRAN) 4 mg tablet Take 1 tablet by mouth every 8 hours as needed. - calcium polycarbophil (FIBERCON) 625 mg tablet Take 625 mg by mouth once daily. - buprenorphine (BUTRANS) 15 mcg/hour patch Apply 1 patch to skin every 7 days. Remove old patch. - FARXIGA 10 mg tablet Take 1 tablet by mouth every afternoon. - valsartan (DIOVAN) 160 mg tablet Take 160 mg by mouth every evening. - meloxicam (MOBIC) 7.5 mg tablet Take 7.5 mg by mouth once daily. - rosuvastatin (CRESTOR) 10 mg tablet Take 10 mg by mouth every evening. - traMADol (ULTRAM) 50 mg tablet Take 50 mg by mouth every 6 hours as needed for pain. - buPROPion SR (WELLBUTRIN SR) 150 mg 12 hr tablet Take 150 mg by mouth every 12 hours. - calcium carbonate (CALTRATE) 600 mg calcium (1,500 mg) tab Take 600 mg by mouth once daily. - atenolol (TENORMIN) 50 mg tablet - escitalopram oxalate (LEXAPRO) 10 mg tablet - gabapentin (NEURONTIN) 300 mg capsule Take 300 mg by mouth three times daily. - aspirin, enteric coated (ASPIRIN, ENTERIC COATED) 81 mg EC tablet Take 81 mg by mouth once daily. - traZODone (DESYREL) 50 mg tablet TAKE 2 TABLETS BY MOUTH EVERY DAY AT BEDTIME Manager Case Management: Therapy (PT/OT/Speech/Resp) ID: [id number] 05/14/2024 7:33 AM Author: CHRISTIANO VILLAFANA Signed by CHRISTIANO VILLAFANA PT on 05/14/2024 at 7:33 AM Document text: Program_ID:[id number] Access Code: [email or web address] URL: [email or web address]/ Date: 05-14-2024 Prepared By: Christiano Villafana Program Notes Exercises - Single Arm Scaption with Dumbbell - 1 x daily - 7 x weekly - 4 sets - 10 reps - Seated Single Arm Bicep Curls Supinated with Dumbbell - 1 x daily - 7 x weekly - 4 sets - 10 reps - Shoulder External Rotation with Anchored Resistance - 1 x daily - 7 x weekly - 4 sets - 10 reps - Shoulder Internal Rotation with Resistance - 1 x daily - 7 x weekly - 4 sets - 10 reps Normal [facility] THERAPY NTon 05-14-2024 THERAPY NT HNO ID: [id number] Author: CHRISTIANO VILLAFANA, PT Service: ? Author Type: Physical Therapist Type: Therapy (PT/OT/Speech/Resp) Filed: 05/14/2024 07:33 Note Text: Program_ID:[id number] Access Code: [email or web address] URL: [email or web address]/ Date: 05-14-2024 Prepared By: Christiano Villafana Program Notes Exercises - Single Arm Scaption with Dumbbell - 1 x daily - 7 x weekly - 4 sets - 10 reps - Seated Single Arm Bicep Curls Supinated with Dumbbell - 1 x daily - 7 x weekly - 4 sets - 10 reps - Shoulder External Rotation with Anchored Resistance - 1 x daily - 7 x weekly - 4 sets - 10 reps - Shoulder Internal Rotation with Resistance - 1 x daily - 7 x weekly - 4 sets - 10 reps Normal [facility] CNTHERAPYon 05-07-2024 CNTHERAPY OT/PT/Speech Visit ( PTWS) SUSAN CHANDLER ([id number]) 1945 F Date Time Provider Department 05/07/24 7:00 AM CHRISTIANO VILLAFANA PTPARAMJIT Date Time Provider Department Center 05/07/2024 7:00 AM [id number], COREY PTPARAMJIT Guerra Reason for Visit: Physical Therapy [503] Primary Visit Diagnosis:Glenohumeral arthritis, right [M19.011] Allergies As of Date: 05/07/2024 Noted Allergy Reaction PENICILLINS 11/10/2021 4 - Hives PERCOCET (OXYCODONE-ACETAMINOPHEN) 9 - Itching VICODIN (HYDROCODONE-ACETAMINOPHE*0 11/10/2021 4 - Hives Date Reviewed: 03/13/2024 Reviewed by: Brittnee Koo LPN - Fully Assessed Prescriptions as of 05/07/2024 - docusate sodium (COLACE) 100 mg capsule Take 1 capsule by mouth two times a day. - ondansetron (ZOFRAN) 4 mg tablet Take 1 tablet by mouth every 8 hours as needed. - calcium polycarbophil (FIBERCON) 625 mg tablet Take 625 mg by mouth once daily. - buprenorphine (BUTRANS) 15 mcg/hour patch Apply 1 patch to skin every 7 days. Remove old patch. - FARXIGA 10 mg tablet Take 1 tablet by mouth every afternoon. - valsartan (DIOVAN) 160 mg tablet Take 160 mg by mouth every evening. - meloxicam (MOBIC) 7.5 mg tablet Take 7.5 mg by mouth once daily. - rosuvastatin (CRESTOR) 10 mg tablet Take 10 mg by mouth every evening. - traMADol (ULTRAM) 50 mg tablet Take 50 mg by mouth every 6 hours as needed for pain. - buPROPion SR (WELLBUTRIN SR) 150 mg 12 hr tablet Take 150 mg by mouth every 12 hours. - calcium carbonate (CALTRATE) 600 mg calcium (1,500 mg) tab Take 600 mg by mouth once daily. - atenolol (TENORMIN) 50 mg tablet - escitalopram oxalate (LEXAPRO) 10 mg tablet - gabapentin (NEURONTIN) 300 mg capsule Take 300 mg by mouth three times daily. - aspirin, enteric coated (ASPIRIN, ENTERIC COATED) 81 mg EC tablet Take 81 mg by mouth once daily. - traZODone (DESYREL) 50 mg tablet TAKE 2 TABLETS BY MOUTH EVERY DAY AT BEDTIME Manager Case Management: Therapy (PT/OT/Speech/Resp) ID: [id number] 05/07/2024 7:18 AM Author: CHRISTIANO VILLAFANA Signed by CHRISTIANO VILLAFANA PT on 05/07/2024 at 7:18 AM Document text: Program_ID:[id number] Access Code: [email or web address] URL: [email or web address]://[employer]/ Date: 05-07-2024 Prepared By: Christiano Villafana Program Notes Exercises - Seated Scapular Retraction - 1 x daily - 7 x weekly - 3 sets - 10 reps - Seated Shoulder Scaption AAROM with Parker at Side - 1 x daily - 7 x weekly - 4 sets - 10 reps - Seated Shoulder External Rotation AAROM with Cane and Hand in Neutral - 1 x daily - 7 x weekly - 4 sets - 10 reps - Seated Shoulder Flexion AAROM with Dowel - 1 x daily - 7 x weekly - 4 sets - 10 reps Normal [facility] THERAPY NTon 05-07-2024 THERAPY NT HNO ID: [id number] Author: CHRISTIANO VILLAFANA PT Service: ? Author Type: Physical Therapist Type: Therapy (PT/OT/Speech/Resp) Filed: 05/07/2024 07:18 Note Text: Program_ID:[id number] Access Code: [email or web address] URL: [email or web address]/ Date: 05-07-2024 Prepared By: Christiano Villafana Program Notes Exercises - Seated Scapular Retraction - 1 x daily - 7 x weekly - 3 sets - 10 reps - Seated Shoulder Scaption AAROM with Parker at Side - 1 x daily - 7 x weekly - 4 sets - 10 reps - Seated Shoulder External Rotation AAROM with Cane and Hand in Neutral - 1 x daily - 7 x weekly - 4 sets - 10 reps - Seated Shoulder Flexion AAROM with Dowel - 1 x daily - 7 x weekly - 4 sets - 10 reps Normal [facility] [id number] 04-26-2024 [id number] HNO ID: [id number] Author: CHRISTIANO VILLAFANA PT Service: ? Author Type: Physical Therapist Type: [id number] Filed: 04/26/2024 10:41 Note Text: [facility] Physical Therapy Plan of Care Certification Patient Name: Susan Chandler : 1945 [facility] #: [id number] Date: 04/26/2024 To: Jens Acevedo PA-C From Therapist: Christiano Villafana PT RE: Patient Certification/ Recertification Your review, approval and electronic signature are required in order to comply with Payor: [employer] MEDICARE / Plan: AET MEDICARE PPO / Product Type: PPO / regulations. The identified Physical Therapy PLAN OF CARE for the patient is as follows: M19.011 Glenohumeral arthritis, right (primary encounter diagnosis) PLAN OF CARE UPDATE: Assessment: Susan Chandler demonstrates minimal improvement in overall physical function due to complications after surgery that did not allow the pt to continue with PT for 4 weeks per physician orders. She will now begin to work towards therapy goals. Patient continues to present with impairments in ADL's, independence in exercise, overall function, range of motion, and strength that interfere with reaching behind back, reaching overhead, lifting, cleaning, cooking, carrying, grooming, dressing . Current prognosis is Good due to: current objective clinical presentation . She will benefit from continued skilled therapy services to meet the updated goals for this plan of care as noted below. Goals for Episode of Care: created on 02/27/24 through 05/21/24 [place] in home exercise program. Patient will decrease pain rating by 2 points to meet minimal clinical important difference for numeric pain rating scale. Perform cooking and cleaning without pain. Increase ROM of RUE to 110 degrees of elevation or greater for ease of reaching overhead into cabinets Increased strength of RUE to 5/5 for return to PLOF Patient Goals: return to PLOF Time Frame for Goals and Treatment : 05/21/24 Patient Goals: return to PLOF Planned Interventions, Frequency, and Duration: 1x/week, 4 weeks Total Number of Visits Planned: 4 Patient to be seen for Therapeutic exercise (02155), Neuromuscular re-education (12863), Manual therapy (89531), Therapeutic activities (77482), Self-fpc management (28042), Patient/Family/Caregiver Education PLAN FOR NEXT VISIT: Follow post-op protocol. Slowly increase shoulder AAROM as tolerated. For further details regarding this patient refer to the Physical Therapy electronically documented visit dated 04/26/2024. Provider Attestation I have reviewed the treatment plan for Susan Chandler, CC# [id number] for the period of 04/26/24 -- 05/31/24, established on 04/26/2024. Signature certifies the need for therapy services. Normal [facility] CNTHERAPYon 04-26-2024 CNTHERAPY OT/PT/Speech Visit ( PTWS) SUSAN CHANDLER ([id number]) 1945 F Date Time Provider Department 04/26/24 8:30 AM CHRISTIANO VILLAFANA PTPARAMJIT Date Time Provider Department [place] 04/26/2024 8:30 AM [id number], COREY PTPARAMJIT Guerra Reason for Visit: PT Progress Note [1596] Primary Visit Diagnosis:Glenohumeral arthritis, right [M19.011] Allergies As of Date: 04/26/2024 Noted Allergy Reaction PENICILLINS 11/10/2021 4 - Hives PERCOCET (OXYCODONE-ACETAMINOPHEN) 9 - Itching VICODIN (HYDROCODONE-ACETAMINOPHE*0 11/10/2021 4 - Hives Date Reviewed: 03/13/2024 Reviewed by: Brittnee Koo LPN - Fully Assessed Prescriptions as of 04/26/2024 - docusate sodium (COLACE) 100 mg capsule Take 1 capsule by mouth two times a day. - ondansetron (ZOFRAN) 4 mg tablet Take 1 tablet by mouth every 8 hours as needed. - calcium polycarbophil (FIBERCON) 625 mg tablet Take 625 mg by mouth once daily. - buprenorphine (BUTRANS) 15 mcg/hour patch Apply 1 patch to skin every 7 days. Remove old patch. - FARXIGA 10 mg tablet Take 1 tablet by mouth every afternoon. - valsartan (DIOVAN) 160 mg tablet Take 160 mg by mouth every evening. - meloxicam (MOBIC) 7.5 mg tablet Take 7.5 mg by mouth once daily. - rosuvastatin (CRESTOR) 10 mg tablet Take 10 mg by mouth every evening. - traMADol (ULTRAM) 50 mg tablet Take 50 mg by mouth every 6 hours as needed for pain. - buPROPion SR (WELLBUTRIN SR) 150 mg 12 hr tablet Take 150 mg by mouth every 12 hours. - calcium carbonate (CALTRATE) 600 mg calcium (1,500 mg) tab Take 600 mg by mouth once daily. - atenolol (TENORMIN) 50 mg tablet - escitalopram oxalate (LEXAPRO) 10 mg tablet - gabapentin (NEURONTIN) 300 mg capsule Take 300 mg by mouth three times daily. - aspirin, enteric coated (ASPIRIN, ENTERIC COATED) 81 mg EC tablet Take 81 mg by mouth once daily. - traZODone (DESYREL) 50 mg tablet TAKE 2 TABLETS BY MOUTH EVERY DAY AT BEDTIME Manager Case Management: Therapy (PT/OT/Speech/Resp) ID: [id number] 04/26/2024 8:56 AM Author: CHRISTIANO VILLAFANA Signed by CHRISTIANO VILLAFANA PT on 04/26/2024 at 8:56 AM Document text: Program_ID:[id number] Access Code: [email or web address] URL: [email or web address] Date: 04-26-2024 Prepared By: Christiano Villafana Program Notes Exercises - Seated Scapular Retraction - 1 x daily - 7 x weekly - 3 sets - 10 reps - Supine Shoulder Flexion Extension AAROM with Dowel - 1 x daily - 6 x weekly - 4 sets - 10 reps - Supine Shoulder External Rotation with Dowel - 1 x daily - 7 x weekly - 4 sets - 10 reps - Elbow flexion and extension stretch - 1 x daily - 7 x weekly - 4 sets - 10 reps - Seated Shoulder Scaption AAROM with Parker at Side - 1 x daily - 7 x weekly - 4 sets - 10 reps Normal [facility] THERAPY NTon 04-26-2024 THERAPY NT HNO ID: [id number] Author: CHRISTIANO VILLAFANA PT Service: ? Author Type: Physical Therapist Type: Therapy (PT/OT/Speech/Resp) Filed: 04/26/2024 08:56 Note Text: Program_ID:[id number] Access Code: [email or web address] URL: [email or web address] Date: 04-26-2024 Prepared By: Christiano Villafana Program Notes Exercises - Seated Scapular Retraction - 1 x daily - 7 x weekly - 3 sets - 10 reps - Supine Shoulder Flexion Extension AAROM with Dowel - 1 x daily - 6 x weekly - 4 sets - 10 reps - Supine Shoulder External Rotation with Dowel - 1 x daily - 7 x weekly - 4 sets - 10 reps - Elbow flexion and extension stretch - 1 x daily - 7 x weekly - 4 sets - 10 reps - Seated Shoulder Scaption AAROM with Parker at Side - 1 x daily - 7 x weekly - 4 sets - 10 reps Normal [facility] CNOVon 04-10-2024 CNOV Office Visit (AGHWW1 ) SUSAN CHANDLER ([id number]) 1945 F Date Time Provider Department 04/10/24 10:15 AM TATIANA SUTHERLAND AGHWW1 During your visit today, we recorded the following information about you: Temperature Weight Height 98.3 degrees 81.6 kg 1.524 m Deep Castillo Abigail 04/10/2024 10:55 AM Signed REVIEW OF SYSTEMS: GENERAL: Well developed, well nourished. No acute distress PAIN: Pain yes and Chronic Pain yes CARDIOVASCULAR: Negative for chest pain, leg swelling and palpations. MSK: Negative for joint swelling SKIN: Negative for lesions, rash, itching, metal sensitivity NEURO: Negative for seizure, trauma, numbness/tingling of extremities. ENDOCRINE: Positive for diabetic associated symptoms HEMATOLOGY: Negative for excessive bleeding, clots, bleeding disorders. Tatiana Sutherland MD 04/10/2024 10:55 AM Signed PAIN EVALUATION 04/10/2024 1001 Pain Level: 2 Description: Aching;Sore Frequency: Intermittent Encounter Diagnosis ICD-10-CM 1. 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 Acute pain of right shoulder M25.511 XR SHOULDER 3V AP/Y VIEW/AXILLARY RIGHT (AK) Susan Chandler returns to follow-up after right reverse shoulder arthroplasty. At her last visit she was having pain in the posterolateral acromion concerning for a stress fracture. She feels this pain has improved. She has been wearing her sling. She has pause physical therapy. No other injuries or setbacks. I examined her right shoulder today in the office. There is only mild discomfort to palpation at the posterolateral acromion and certainly much less pain than on previous exam. No crepitation in this area with movement. She has 60 degrees of active forward elevation with a firm endpoint. 10 degrees of internal and external rotation actively and passively without much discomfort today. IMAGING: Radiographs of the right shoulder personally reviewed today. Date of exam today. This is a 3-view shoulder exam, including AP, outlet, and axillary views. My interpretation of the examination: Stable appearance of reverse total shoulder arthroplasty with no change in alignment of the acromion PLAN: We discussed her improvement since her last visit. She has very little posterolateral acromial pain and it is unclear whether this is simply muscular pain today. No tenderness with tapping on the bone. She may resume her physical therapy and return to see me in 6 weeks for clinical check with new x-rays at that time. Tatiana Sutherland MD Shoulder AND Elbow Surgeon Department of Orthopaedic Surgery [facility] Allergies As of Date: 04/10/2024 Noted Allergy Reaction PENICILLINS 11/10/2021 4 - Hives PERCOCET (OXYCODONE-ACETAMINOPHEN) 9 - Itching VICODIN (HYDROCODONE-ACETAMINOPHE*0 11/10/2021 4 - Hives Date Reviewed: 03/13/2024 Reviewed by: Brittnee Koo LPN - Fully Assessed Reason for Visit: Follow Up [171] Post Op [174] Primary Visit Diagnosis:Status post reverse total replacement of right shoulder [Z96.611] Other Visit Diagnosis:Acute pain of right shoulder [M25.511] Order(s):XR SHOULDER 3V AP/Y VIEW/AXILLARY RIGHT (AK) [4099371] Order #: [id number] Prescriptions as of 04/10/2024 - docusate sodium (COLACE) 100 mg capsule Take 1 capsule by mouth two times a day. - ondansetron (ZOFRAN) 4 mg tablet Take 1 tablet by mouth every 8 hours as needed. - calcium polycarbophil (FIBERCON) 625 mg tablet Take 625 mg by mouth once daily. - buprenorphine (BUTRANS) 15 mcg/hour patch Apply 1 patch to skin every 7 days. Remove old patch. - FARXIGA 10 mg tablet Take 1 tablet by mouth every afternoon. - valsartan (DIOVAN) 160 mg tablet Take 160 mg by mouth every evening. - meloxicam (MOBIC) 7.5 mg tablet Take 7.5 mg by mouth once daily. - rosuvastatin (CRESTOR) 10 mg tablet Take 10 mg by mouth every evening. - traMADol (ULTRAM) 50 mg tablet Take 50 mg by mouth every 6 hours as needed for pain. - buPROPion SR (WELLBUTRIN SR) 150 mg 12 hr tablet Take 150 mg by mouth every 12 hours. - calcium carbonate (CALTRATE) 600 mg calcium (1,500 mg) tab Take 600 mg by mouth once daily. - atenolol (TENORMIN) 50 mg tablet - escitalopram oxalate (LEXAPRO) 10 mg tablet - gabapentin (NEURONTIN) 300 mg capsule Take 300 mg by mouth three times daily. - aspirin, enteric coated (ASPIRIN, ENTERIC COATED) 81 mg EC tablet Take 81 mg by mouth once daily. - traZODone (DESYREL) 50 mg tablet TAKE 2 TABLETS BY MOUTH EVERY DAY AT BEDTIME Problem List As Of Date 04/10/2024 Noted Resolved Mild intermittent asthma, uncomplicated [J45.20]04/11/2023 Essential (primary) hypertension [I10] 01/11/2023 Depressive disorder [F32.A] 02/10/2024 History of tobacco use [Z87. (more content not included)... Normal [facility] CNOVon 03-13-2024 CN Office Visit (AGHWW1 ) GERALDINESUSAN Jose ([id number]) 1945 F Date Time Provider Department 03/13/24 11:15 AM TATIANA SUTHERLAND AGHWW1 During your visit today, we recorded the following information about you: Respiration Weight Height 18/minute 88.9 kg 1.524 m Tatiana Sutherland MD 03/14/2024 1:27 PM Signed PAIN EVALUATION 03/13/2024 1026 Pain Level: 4 Pain Location: Shoulder-Right Description: Aching Frequency: Continuous Encounter Diagnosis ICD-10-CM 1. 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 Acute pain of right shoulder M25.511 Susan Chandler presents for evaluation of acute onset right shoulder pain today. This began 3 days ago and was localized to the posterior shoulder. No falls or significant injuries. She had been doing her usual stretching and light use of the arm. I examined her right shoulder today. Incision is healing. Pain is localized to the posterior lateral shoulder at the scapular spine. This is worse with palpation. She has pain with lifting which is also localized to this area. Her lifting is still relatively good at 100 degrees with a strong deltoid contraction. IMAGING: Radiographs of the right shoulder personally reviewed today. Date of exam today. This is a 3-view shoulder exam, including AP, outlet, and axillary views. My interpretation of the examination: Stable RTSA, no acromial fracture or change in acromiohumeral interval. PLAN: Today I evaluated her right shoulder and there is concern for a stress reaction of her posterolateral acromion following her reverse arthroplasty. I let her know that this is a known complication of her procedure. At this point the fracture appears to be nondisplaced and I would recommend resting her in a sling for period of 4 weeks and return to see me for repeat clinical examination at that time. Recommended that she pause physical therapy and do no lifting greater than 1 pound until further evaluation. Tatiana Sutherland MD Shoulder AND Elbow Surgeon Department of Orthopaedic Surgery [facility] Allergies As of Date: 03/13/2024 Noted Allergy Reaction PENICILLINS 11/10/2021 4 - Hives PERCOCET (OXYCODONE-ACETAMINOPHEN) 9 - Itching VICODIN (HYDROCODONE-ACETAMINOPHE*0 11/10/2021 4 - Hives Date Reviewed: 03/13/2024 Reviewed by: Brittnee Koo LPN - Fully Assessed Reason for Visit: Post Op [174] Pain [78] Primary Visit Diagnosis:Status post reverse total replacement of right shoulder [Z96.611] Other Visit Diagnosis:Acute pain of right shoulder [M25.511] Order(s):XR SHOULDER 3V AP/Y VIEW/AXILLARY RIGHT (AK) [[id number]] Order #: [id number] Prescriptions as of 03/14/2024 - docusate sodium (COLACE) 100 mg capsule Take 1 capsule by mouth two times a day. - ondansetron (ZOFRAN) 4 mg tablet Take 1 tablet by mouth every 8 hours as needed. - calcium polycarbophil (FIBERCON) 625 mg tablet Take 625 mg by mouth once daily. - buprenorphine (BUTRANS) 15 mcg/hour patch Apply 1 patch to skin every 7 days. Remove old patch. - FARXIGA 10 mg tablet Take 1 tablet by mouth every afternoon. - valsartan (DIOVAN) 160 mg tablet Take 160 mg by mouth every evening. - meloxicam (MOBIC) 7.5 mg tablet Take 7.5 mg by mouth once daily. - rosuvastatin (CRESTOR) 10 mg tablet Take 10 mg by mouth every evening. - traMADol (ULTRAM) 50 mg tablet Take 50 mg by mouth every 6 hours as needed for pain. - buPROPion SR (WELLBUTRIN SR) 150 mg 12 hr tablet Take 150 mg by mouth every 12 hours. - calcium carbonate (CALTRATE) 600 mg calcium (1,500 mg) tab Take 600 mg by mouth once daily. - atenolol (TENORMIN) 50 mg tablet - escitalopram oxalate (LEXAPRO) 10 mg tablet - gabapentin (NEURONTIN) 300 mg capsule Take 300 mg by mouth three times daily. - aspirin, enteric coated (ASPIRIN, ENTERIC COATED) 81 mg EC tablet Take 81 mg by mouth once daily. - traZODone (DESYREL) 50 mg tablet TAKE 2 TABLETS BY MOUTH EVERY DAY AT BEDTIME Problem List As Of Date 03/13/2024 Noted Resolved Mild intermittent asthma, uncomplicated [J45.20]04/11/2023 Essential (primary) hypertension [I10] 01/11/2023 Depressive disorder [F32.A] 02/10/2024 History of tobacco use [Z87.891] 06/10/2022 COPD (chronic obstructive pulmonary disease) (H*02/10/2024 Mixed hyperlipidemia [E78.2] 02/10/2024 RBBB [I45.10] 02/10/2024 Abnormal electrocardiogram [R94.31] 02/10/2024 Class 2 severe obesity due to excess calories w*02/10/2024 JEANNIE (obstructive sleep apnea) [G47.33] 02/10/2024 Type 2 diabetes mellitus without complication, *02/10/2024 Hypoxemia [R09.02] 02/15/2024 Grade I diastolic dysfunction [I51.89] 02/17/2024 Pulmonary hypertension (HCC) [I27.20] 02/17/2024 S/P reverse total shoulder arthroplas (more content not included)... Normal [facility] CNTHERAPYon 03-09-2024 CNTHERAPY OT/PT/Speech Visit ( PTWS) SUSAN CHANDLER ([id number]) 1945 F Date Time Provider Department 03/09/24 12:00 PM CHRISTIANO VILLAFANA PTWS Date Time Provider Department Center 03/09/2024 12:00 PM [id number], COREY PTWS Kavin Guerra Reason for Visit: Appointment Cancelled [1023] Primary Visit Diagnosis:Glenohumeral arthritis, right [M19.011] Allergies As of Date: 03/09/2024 Noted Allergy Reaction PENICILLINS 11/10/2021 4 - Hives PERCOCET (OXYCODONE-ACETAMINOPHEN) 9 - Itching VICODIN (HYDROCODONE-ACETAMINOPHE*0 11/10/2021 4 - Hives Date Reviewed: 02/20/2024 Reviewed by: Cydney Sánchez, RN - Fully Assessed Prescriptions as of 03/09/2024 - oxyCODONE-acetaminophen (PERCOCET) 5-325 mg tablet Take 1-2 tablets by mouth every 4 hours as needed for pain for up to 7 days. - docusate sodium (COLACE) 100 mg capsule Take 1 capsule by mouth two times a day. - ondansetron (ZOFRAN) 4 mg tablet Take 1 tablet by mouth every 8 hours as needed. - calcium polycarbophil (FIBERCON) 625 mg tablet Take 625 mg by mouth once daily. - buprenorphine (BUTRANS) 15 mcg/hour patch Apply 1 patch to skin every 7 days. Remove old patch. - FARXIGA 10 mg tablet Take 1 tablet by mouth every afternoon. - valsartan (DIOVAN) 160 mg tablet Take 160 mg by mouth every evening. - meloxicam (MOBIC) 7.5 mg tablet Take 7.5 mg by mouth once daily. - rosuvastatin (CRESTOR) 10 mg tablet Take 10 mg by mouth every evening. - traMADol (ULTRAM) 50 mg tablet Take 50 mg by mouth every 6 hours as needed for pain. - buPROPion SR (WELLBUTRIN SR) 150 mg 12 hr tablet Take 150 mg by mouth every 12 hours. - calcium carbonate (CALTRATE) 600 mg calcium (1,500 mg) tab Take 600 mg by mouth once daily. - atenolol (TENORMIN) 50 mg tablet - escitalopram oxalate (LEXAPRO) 10 mg tablet - gabapentin (NEURONTIN) 300 mg capsule Take 300 mg by mouth three times daily. - aspirin, enteric coated (ASPIRIN, ENTERIC COATED) 81 mg EC tablet Take 81 mg by mouth once daily. - traZODone (DESYREL) 50 mg tablet TAKE 2 TABLETS BY MOUTH EVERY DAY AT BEDTIME Normal [facility] XR Shoulder - right 3 Viewso n 03-04-2024 IMPRESSION: Interval reverse RIGHT total shoulder arthroplasty without complication. [employer] Developer: JUAN Transcribe Date/Time: Mar 04 2024 10:59A Dictated by : KRISTI EAGLE DO This examination was interpreted and the report reviewed and electronically signed by: KRISTI EAGLE DO on Mar 04 2024 11:00AM [facility] * * *Final Report* * * DATE OF EXAM: Mar 02 2024 12:40PM TONYA 5253 - XR SHLDR >/=3V AP/SHELLEY AP/OTHR RT / PROCEDURE REASON: multiple diagnoses * * * * Physician Interpretation * * * * EXAMINATION: XR SHLDR >/=3V AP/SHELLEY AP/OTHR RT PATIENT/TECHNOLOGIST PROVIDED HISTORY: f/u right shoulder replacement CLINICAL INFORMATION: 78 years old Female with Chronic right shoulder pain TECHNIQUE: XR SHLDR >/=3V AP/SHELLEY AP/OTHR RT Laterality: RIGHT Number of different views (projections): 3 COMPARISON: Outside hospital radiographs 10/13/2023 Interval reverse RIGHT total shoulder arthroplasty in satisfactory alignment and position. No periprosthetic lucency or fracture. Small foci of residual postoperative soft tissue emphysema. Overlying dressing material. Moderate degenerative change acromioclavicular joint with chondrocalcinosis. Partially visualized spinal stimulator leads overlying the thoracic spine. [facility] Provider, Jeffrey Hernandez - 03/04/2024 * * *Final Report* * * DATE OF EXAM: Mar 02 2024 12:40PM TONYA 5253 - XR SHLDR >/=3V AP/SHELLEY AP/OTHR RT / PROCEDURE REASON: multiple diagnoses * * * * Physician Interpretation * * * * EXAMINATION: XR SHLDR >/=3V AP/SHELLEY AP/OTHR RT PATIENT/TECHNOLOGIST PROVIDED HISTORY: f/u right shoulder replacement CLINICAL INFORMATION: 78 years old Female with Chronic right shoulder pain TECHNIQUE: XR SHLDR >/=3V AP/SHELLEY AP/OTHR RT Laterality: RIGHT Number of different views (projections): 3 COMPARISON: Outside hospital radiographs 10/13/2023 Interval reverse RIGHT total shoulder arthroplasty in satisfactory alignment and position. No periprosthetic lucency or fracture. Small foci of residual postoperative soft tissue emphysema. Overlying dressing material. Moderate degenerative change acromioclavicular joint with chondrocalcinosis. Partially visualized spinal stimulator leads overlying the thoracic spine. IMPRESSION IMPRESSION: Interval reverse RIGHT total shoulder arthroplasty without complication. [employer] Developer: PSCB Transcribe Date/Time: Mar 04 2024 10:59A Dictated by : KRISTI EAGLE DO This examination was interpreted and the report reviewed and electronically signed by: KRISTI EAGLE DO on Mar 04 2024 11:00AM EST [facility] XR Shoulder - right 3 ViewsO rdered By: [facility] Provider on 03-04-2024 [facility] CNOVon 03-02-2024 CNOV Office Visit (ORMDRG ) GERALDINESUSAN ([id number]) 1945 F Date Time Provider Department 03/02/24 1:00 PM JENS ACEVEDO During your visit today, we recorded the following information about you: Jens Acevedo PA-C 03/02/2024 1:04 PM Signed Jens Acevedo PA-C Department of Orthopaedics March 02, 2024 SURGERY: Reverse total shoulder arthroplasty - right SUBJECTIVE: Patient returns to clinic now 2 weeks status post the above procedure. Pain has been controlled on pain medication. Patient has been out of the sling and using the arm for light activity as tolerates. Has been to PT. Exam: Well healed anterior incision. Active forward elevation to 90. Sensation intact to lateral deltoid. Strong deltoid contraction against resistance. Nontender along scapular spine or acromion. Imaging: I did order and interpret radiographs today, 3 views right shoulder. Reverse total shoulder arthroplasty intact without evidence of mechanical loosening or periprosthetic fracture. ASSESSMENT: Z96.611 Status post reverse total replacement of right shoulder (primary encounter diagnosis) SUMMARY/PLAN: Discussed progress now 2 weeks out from the above procedure. Continue with PT. Continue to use arm for activity as tolerates. Return to clinic in 4 weeks with repeat xrays of shoulder at that time. Jens Acevedo PA-C Allergies As of Date: 03/02/2024 Noted Allergy Reaction PENICILLINS 11/10/2021 4 - Hives PERCOCET (OXYCODONE-ACETAMINOPHEN) 9 - Itching VICODIN (HYDROCODONE-ACETAMINOPHE*0 11/10/2021 4 - Hives Date Reviewed: 02/20/2024 Reviewed by: Cydney Sánchez, MILTON - Fully Assessed Reason for Visit: Established Patient [175] Follow Up [171] Post Op [174] Primary Visit Diagnosis:Status post reverse total replacement of right shoulder [Z96.611] Other Visit Diagnosis:S/P reverse total shoulder arthroplasty, right [Z96.611] Order(s):oxyCODONE-acetamin ophen (PERCOCET) 5-325 mg tabletTake 1-2 tablets by mouth every 4 hours as needed for pain for up to 7 days.Disp: 28 tabletRfl: 0 Prescriptions as of 03/02/2024 - oxyCODONE-acetaminophen (PERCOCET) 5-325 mg tablet Take 1-2 tablets by mouth every 4 hours as needed for pain for up to 7 days. - docusate sodium (COLACE) 100 mg capsule Take 1 capsule by mouth two times a day. - ondansetron (ZOFRAN) 4 mg tablet Take 1 tablet by mouth every 8 hours as needed. - calcium polycarbophil (FIBERCON) 625 mg tablet Take 625 mg by mouth once daily. - buprenorphine (BUTRANS) 15 mcg/hour patch Apply 1 patch to skin every 7 days. Remove old patch. - FARXIGA 10 mg tablet Take 1 tablet by mouth every afternoon. - valsartan (DIOVAN) 160 mg tablet Take 160 mg by mouth every evening. - meloxicam (MOBIC) 7.5 mg tablet Take 7.5 mg by mouth once daily. - rosuvastatin (CRESTOR) 10 mg tablet Take 10 mg by mouth every evening. - traMADol (ULTRAM) 50 mg tablet Take 50 mg by mouth every 6 hours as needed for pain. - buPROPion SR (WELLBUTRIN SR) 150 mg 12 hr tablet Take 150 mg by mouth every 12 hours. - calcium carbonate (CALTRATE) 600 mg calcium (1,500 mg) tab Take 600 mg by mouth once daily. - atenolol (TENORMIN) 50 mg tablet - escitalopram oxalate (LEXAPRO) 10 mg tablet - gabapentin (NEURONTIN) 300 mg capsule Take 300 mg by mouth three times daily. - aspirin, enteric coated (ASPIRIN, ENTERIC COATED) 81 mg EC tablet Take 81 mg by mouth once daily. - traZODone (DESYREL) 50 mg tablet TAKE 2 TABLETS BY MOUTH EVERY DAY AT BEDTIME Problem List As Of Date 03/02/2024 Noted Resolved Mild intermittent asthma, uncomplicated [J45.20]04/11/2023 Essential (primary) hypertension [I10] 01/11/2023 Depressive disorder [F32.A] 02/10/2024 History of tobacco use [Z87.891] 06/10/2022 COPD (chronic obstructive pulmonary disease) (H*02/10/2024 Mixed hyperlipidemia [E78.2] 02/10/2024 RBBB [I45.10] 02/10/2024 Abnormal electrocardiogram [R94.31] 02/10/2024 Class 2 severe obesity due to excess calories w*02/10/2024 JEANNIE (obstructive sleep apnea) [G47.33] 02/10/2024 Type 2 diabetes mellitus without complication, *02/10/2024 Hypoxemia [R09.02] 02/15/2024 Grade I diastolic dysfunction [I51.89] 02/17/2024 Pulmonary hypertension (HCC) [I27.20] 02/17/2024 S/P reverse total shoulder arthroplasty, right *02/20/2024 Glenohumeral arthritis, right [M19.011] 02/27/2024 Prescriptions ordered this encounter Disp Refills Start End OXYCODONE-ACETAMINOPHEN 5 MG-325 MG * 28 t* 0 03/02/2024 03/09/2024 Route: ORAL Sig: Take 1-2 tablets by mouth every 4 hours as needed for pain for up to 7 days. Medications Discontinued During This Encounter Prescriptions - oxyCODONE-acetaminophen (PERCOCET) 5-325 mg tablet (Discontinued) Take 1-2 tablets by mouth every 4 hours as needed for pain for up to 7 days. Encounter Status:Closed by JENS ACEVEDO on 02/12 (more content not included)... Normal [facility] XR SHLDR >/=3V AP/SHELLEY AP/OTH R RTon 03-02-2024 XR SHLDR >/=3V AP/SHELLEY AP/OTHR RT * * *Final Report* * * DATE OF EXAM: Mar 02 2024 12:40PM TOYNA 5253 - XR SHLDR >/=3V AP/SHELLEY AP/OTHR RT / PROCEDURE REASON: multiple diagnoses * * * * Physician Interpretation * * * * EXAMINATION: XR SHLDR >/=3V AP/SHELLEY AP/OTHR RT PATIENT/TECHNOLOGIST PROVIDED HISTORY: f/u right shoulder replacement CLINICAL INFORMATION: 78 years old Female with Chronic right shoulder pain TECHNIQUE: XR SHLDR >/=3V AP/SHELLEY AP/OTHR RT Laterality: RIGHT Number of different views (projections): 3 COMPARISON: Outside hospital radiographs 10/13/2023 Interval reverse RIGHT total shoulder arthroplasty in satisfactory alignment and position. No periprosthetic lucency or fracture. Small foci of residual postoperative soft tissue emphysema. Overlying dressing material. Moderate degenerative change acromioclavicular joint with chondrocalcinosis. Partially visualized spinal stimulator leads overlying the thoracic spine. IMPRESSION: Interval reverse RIGHT total shoulder arthroplasty without complication. [employer] Developer: JUAN Transcribe Date/Time: Mar 04 2024 10:59A Dictated by : KRISTI EAGLE DO This examination was interpreted and the report reviewed and electronically signed by: KRISTI EAGLE DO on Mar 04 2024 11:00AM EST [id number] [facility] XR Shoulder - right 3 Viewso n 03-02-2024 Radiology Study observation (narrative) [facility] [id number] 02-27-2024 [id number] HNO ID: [id number] Author: CHRISTIANO VILLAFANA PT Service: ? Author Type: Physical Therapist Type: [id number] Filed: 02/27/2024 16:15 Note Text: [facility] Physical Therapy Plan of Care Certification Patient Name: Susan Chandler : 1945 CC #: [id number] Date: 02/27/2024 To: Jens Acevedo PA-C From Therapist: Christiano Villafana PT RE: Patient Certification/ Recertification Your review, approval and electronic signature are required in order to comply with Payor: AET MEDICARE / Plan: [employer] MEDICARE PPO / Product Type: PPO / regulations. The identified Physical Therapy PLAN OF CARE for the patient is as follows: M19.011 Glenohumeral arthritis, right PLAN OF CARE: Assessment: Susan Chandler presents with chief complaint of R shoulder post op rTSA that interferes with reaching behind back, reaching overhead, lifting, cleaning, cooking, carrying, grooming, dressing . She presents with impairments in ADL's, independence in exercise, overall function, range of motion, and strength. Patient did not complete the PROMIS? (Patient Reported Outcome Measures Information System). Prognosis for therapy is Good due to: current objective clinical presentation . She will benefit from skilled therapy services to meet the goals established for this plan of care as noted below. Goals for Episode of Care: created on 02/27/24 through 05/21/24 [place] in home exercise program. Patient will decrease pain rating by 2 points to meet minimal clinical important difference for numeric pain rating scale. Perform cooking and cleaning without pain. Increase ROM of RUE to 110 degrees of elevation or greater for ease of reaching overhead into cabinets Increased strength of RUE to 5/5 for return to PLOF Patient Goals: return to PLOF Planned Interventions, Frequency, and Duration: Current Frequency: 1x/week Duration: 4 weeks Total Number of Visits Planned: 4 Planned Treatment Interventions: Therapeutic exercise (27965), Neuromuscular re-education (46528), Manual therapy (65649), Therapeutic activities (45389), Self-fpc management (99020), Patient/Family/Caregiver Education PLAN FOR NEXT VISIT: Follow rehab protocol phase 1 Patient demonstrates good understanding of plan of care and treatment. The above goals and plan of care were discussed and agreed upon by patient/family. For further details regarding this patient refer to the Physical Therapy electronically documented visit dated 02/27/2024. Provider Attestation I have reviewed the treatment plan for Susan Chandler CC# [id number] for the period of 02/27/24 -- 04/02/24, established on 02/27/2024. Signature certifies the need for therapy services. Normal [facility] CNTHERAPYon 02-27-2024 CNTHERAPY OT/PT/Speech Visit ( PTWS) SUSAN CHANDLER ([id number]) 1945 F Date Time Provider Department 02/27/24 3:30 PM CHRISTIANO VILLAFANA PTPARAMJIT Date Time Provider Department Center 02/27/2024 3:30 PM [id number], COREY PTPARAMJIT Guerra Reason for Visit: PT Eval [747] Visit Diagnosis:Glenohumeral arthritis, right [M19.011] Allergies As of Date: 02/27/2024 Noted Allergy Reaction PENICILLINS 11/10/2021 4 - Hives PERCOCET (OXYCODONE-ACETAMINOPHEN) 9 - Itching VICODIN (HYDROCODONE-ACETAMINOPHE*0 11/10/2021 4 - Hives Date Reviewed: 02/20/2024 Reviewed by: Cydney Sánchez RN - Fully Assessed Prescriptions as of 03/02/2024 - oxyCODONE-acetaminophen (PERCOCET) 5-325 mg tablet Take 1-2 tablets by mouth every 4 hours as needed for pain for up to 7 days. - docusate sodium (COLACE) 100 mg capsule Take 1 capsule by mouth two times a day. - ondansetron (ZOFRAN) 4 mg tablet Take 1 tablet by mouth every 8 hours as needed. - calcium polycarbophil (FIBERCON) 625 mg tablet Take 625 mg by mouth once daily. - buprenorphine (BUTRANS) 15 mcg/hour patch Apply 1 patch to skin every 7 days. Remove old patch. - FARXIGA 10 mg tablet Take 1 tablet by mouth every afternoon. - valsartan (DIOVAN) 160 mg tablet Take 160 mg by mouth every evening. - meloxicam (MOBIC) 7.5 mg tablet Take 7.5 mg by mouth once daily. - rosuvastatin (CRESTOR) 10 mg tablet Take 10 mg by mouth every evening. - traMADol (ULTRAM) 50 mg tablet Take 50 mg by mouth every 6 hours as needed for pain. - buPROPion SR (WELLBUTRIN SR) 150 mg 12 hr tablet Take 150 mg by mouth every 12 hours. - calcium carbonate (CALTRATE) 600 mg calcium (1,500 mg) tab Take 600 mg by mouth once daily. - atenolol (TENORMIN) 50 mg tablet - escitalopram oxalate (LEXAPRO) 10 mg tablet - gabapentin (NEURONTIN) 300 mg capsule Take 300 mg by mouth three times daily. - aspirin, enteric coated (ASPIRIN, ENTERIC COATED) 81 mg EC tablet Take 81 mg by mouth once daily. - traZODone (DESYREL) 50 mg tablet TAKE 2 TABLETS BY MOUTH EVERY DAY AT BEDTIME Normal [facility] ANES POSTPROC EVALon 024 ANES POSTPROC EVAL HNO ID: [id number] Author: KOLBY KEARNS MD Service: Anesthesiology Author Type: Anesthesiologist Type: Anesthesia Postprocedure Evaluation Filed: 02/20/2024 12:11 Note Text: POST ANESTHESIA EVALUATION NOTE : 1945 Procedure Summary Date: 02/20/24 Room / Location: [place] [address] / [place] Anesthesia Start: 948 Anesthesia Stop: 1127 Procedure: REVERSE TOTAL SHOULDER ARTHROPLASTY (Right: Shoulder) Diagnosis: Glenohumeral arthritis, right Complete tear of right rotator cuff, unspecified whether traumatic (Glenohumeral arthritis, right [M19.011]) (Complete tear of right rotator cuff, unspecified whether traumatic [M75.121]) Surgeons: Tatiana Sutherland MD Responsible Provider: Kolby Kearns MD Anesthesia Type: general ASA Status: 3 Anesthesia Type: general Airway Type: ETT Last Vitals Vitals Value Taken Time BP 176/83 02/20/24 1200 Temp 36.2 ?C (97.2 ?F) 02/20/24 1126 Pulse 84 02/20/24 1209 Resp 20 02/20/24 1209 SpO2 93 % 02/20/24 1209 Vitals shown include unfiled device data. Post Anesthesia Patient Status Patient Evaluation: bedside. Anticipated Disposition: phase 2 then home. Neurological Status: aware and responsive. Pulmonary Status: breathing comfortably on room air Airway Control: returned to baseline unsupported. Cardiovascular Status: stable. Pain Management: clinically adequate Postoperative Hydration: acceptable. Intraoperative Events: no significant anesthesia events Post Operative Nausea/Vomiting Status: no significant post operative nausea or vomiting Recommendation: continue current plan of care. Anesthesia Observations No Documentation SIGNATURE: Kolby Kearns MD PATIENT NAME: Susan Chandler DATE: February 20, 2024 TIME: 12:11 PM CSN: [id number] [facility] ANES PRE-OPon 02-20-2024 ANES PRE-OP HNO ID: [id number] Author: KOLBY KEARNS MD Service: Anesthesiology Author Type: Anesthesiologist Type: Anesthesia Preprocedure Evaluation Filed: 02/20/2024 08:17 Note Text: ANESTHESIOLOGY DAY OF SURGERY NOTE : 1945 Procedure Information Date/Time: 02/20/24911 Procedure: REVERSE TOTAL SHOULDER ARTHROPLASTY (Right: Shoulder) [place]: [place] Surgeons: Tatiana Sutherland MD Estimated body mass index is 37.5 kg/m? as calculated from the following: Height as of 02/10/24: 152.4 cm (5'). Weight as of 02/10/24: 87.1 kg (192 lb). Most recent hematocrit and potassium results: Hematocrit 46.1 02/17/2024 Potassium 4.3 02/17/2024 Relevant Problems No relevant active problems I - PHYSICAL EVALUATION AIRWAY Patient intubated: No. Tracheostomy tube not present Mallampati: II. TM distance: >3 FB. Neck ROM: full ROM without neurological symptoms. Mouth opening: adequate. Short neck: no. Thick neck: no DENTAL Normal dental observations. Dental findings: teeth intact. II - ANESTHESIA PLAN ASA Score: 3 Anesthetic Plan: general Airway type: ETT The patient is not a current smoker. (quit 10 mo ago) NPO Status: adequate Beta Gerardo Monitoring Plan Monitoring plan: standard ASA. Post Procedure Analgesic Plan Postoperative analgesic plan: parenteral or oral opioids, multimodal analgesia and peripheral nerve block. Informed Consent Anesthetic risks, benefits, alternatives, personnel and consent discussed: yes. Patient / Responsible Alliance Party agrees to proceed: yes Patient / Surrogate agrees to blood products: blood products not planned DNR status not reviewed with patient and/or family prior to surgery. Significant changes in the patient condition since the History and Physical, not otherwise documented in primary service progress note: no. Potential Anesthesia issues that may suggest increased risk of complications or contraindication to planned procedure: none. Discussed the possibility of lip / dental damage: yes Vitals Value Taken Time BP 172/77 02/20/24 0749 Pulse 68 02/20/24 0815 Resp 27 02/20/24 0815 Temp 36.9 ?C (98.4 ?F) 02/20/24 0749 SpO2 94 % 02/20/24 0815 Vitals shown include unfiled device data. Facility-Administered Medications as of 02/20/2024 Medication Dose Route Frequency [COMPLETED] acetaminophen 1,000 mg tab(s) (TYLENOL) 1,000 mg ORAL Pre-Op Once [COMPLETED] promethazine 12.5 mg tab(s) (PHENERGAN) 12.5 mg ORAL Pre-Op Once Outpatient Medications as of 02/20/2024 Medication Sig buprenorphine (BUTRANS) 15 mcg/hour patch Apply 1 patch to skin every 7 days. Remove old patch. rosuvastatin (CRESTOR) 10 mg tablet Take 10 mg by mouth every evening. buPROPion SR (WELLBUTRIN SR) 150 mg 12 hr tablet Take 150 mg by mouth every 12 hours. atenolol (TENORMIN) 50 mg tablet escitalopram oxalate (LEXAPRO) 10 mg tablet gabapentin (NEURONTIN) 300 mg capsule Take 300 mg by mouth three times daily. traZODone (DESYREL) 50 mg tablet TAKE 2 TABLETS BY MOUTH EVERY DAY AT BEDTIME FARXIGA 10 mg tablet Take 1 tablet by mouth every afternoon. valsartan (DIOVAN) 160 mg tablet Take 160 mg by mouth once daily. meloxicam (MOBIC) 7.5 mg tablet Take 7.5 mg by mouth once daily. traMADol (ULTRAM) 50 mg tablet Take 50 mg by mouth every 6 hours as needed for pain. calcium carbonate (CALTRATE) 600 mg calcium (1,500 mg) tab Take 600 mg by mouth once daily. aspirin, enteric coated (ASPIRIN, ENTERIC COATED) 81 mg EC tablet Take 81 mg by mouth once daily. I have interviewed and examined the patient. I have reviewed the medical record and/or the pre-anesthesia evaluation, pertinent labs, and test results. This contains updated information obtained within 48 hours of Surgery/Procedure. SIGNATURE: Kolby Kearns MD PATIENT NAME: Susan Chandler DATE: February 20, 2024 TIME: 8:17 AM CSN: [id number] Normal [facility] CONSULTon 02-20-2024 CONSULT HNO ID: [id number] Author: GERMAIN DE LUNA MD Service: General Internal Medicine Author Type: Physician Type: Consults Filed: 02/22/2024 16:46 Note Text: [facility]- Consultation SUSAN CHANDLER : 1945 AGE: 78 SEX: F [facility]: [id number] [facility]: [facility] LOCATION: [facility] ATTENDING PHYSICIAN: TATIANA SUTHERLAND DATE OF SERVICE: 02/20/2024 TIME OF SERVICE: 05:45 PM REASON FOR CONSULTATION: Medical management. HISTORY: This is a 78-year-old female whose significant medical history includes osteoarthritis, pulmonary hypertension, grade 1 diastolic dysfunction, DM type 2, obstructive sleep apnea, obesity class 2, hyperlipidemia, depression/anxiety, COPD, currently not on any bronchodilators, hypertension. Patient underwent elective right reverse total shoulder arthroplasty. The patient had uneventful intraop course. Estimated blood loss 50 mL. Postoperatively, patient was noted to have hypoxia and the patient kept in the hospital. During initial evaluation, patient is on 2 L oxygen. Normally, she uses oxygen at nighttime. She was denying any shortness of breath, palpitation, pleuritic chest pain, or hemoptysis. PAST MEDICAL HISTORY: As mentioned above. PAST SURGICAL HISTORY: Includes left total hip replacement in 12/2022. FAMILY HISTORY: Not significant. SOCIAL HISTORY: She is a former smoker. She does not drink alcohol. MEDICATIONS: Current home medication list reviewed. ALLERGIES: She is allergic to penicillin, caused hives; Percocet, itchiness; piperacillin, hives. REVIEW OF SYSTEMS: HEENT/Neck: Patient has no history of glaucoma. No history of TIA, CVA, or seizure disorders. No history of dysphagia or odynophagia. No history of coronary artery disease. History of diastolic congestive heart failure. No PND or orthopnea and history of mild dyspnea with exertion and history of COPD, currently not on any bronchodilators; obstructive sleep apnea, adherent with the CPAP. No history of recent pulmonary infection. History of hypertension and hyperlipidemia. Patient had a stress test prior to the surgery, result not available. No history of bleeding, peptic ulcer, hepatitis, colitis. Good appetite, regular bowel movement. No history of renal calculi, CKD, or recent urinary tract infection. History of diabetes. No paresthesia of the feet. History of anxiety/depression. PHYSICAL EXAM: General: Elderly female. The patient is alert and oriented. HEENT/Neck: Sclerae anicteric. Oral mucosa slight dry. No thyromegaly appreciated. No carotid bruit heard. No lymphadenopathy of the neck. Lungs: Fairly clear to auscultation. No wheezing, rales present. Cardiovascular: S1, S2. Regular rhythm. Unable to appreciate any murmur, gallop, or rub. Abdomen: Soft, nontender, nondistended. No mass felt. Lower Extremities: No ankle edema noted. IMPRESSION: 1. Acute hypoxic respiratory failure. Continue oxygen and start incentive spirometry. S/p shoulder arthoplasty 2. Obstructive sleep apnea. Resume her CPAP. 3. Hypertension. Continue Diovan. 4. Hyperlipidemia. Continue statins. 5. Anxiety/depression. Continue Wellbutrin. She also takes Tenormin. Lexapro for anxiety/depression. 6. Also continue gabapentin for back pain. 7. Insomnia. Currently on trazodone. 8. Pulmonary hypertension. She does use oxygen 2 L at nighttime. 9. Her home medicine reviewed and reconciled. Germain De Luna M.D. Internal Medicine SKJ:[id number] /[id number] [facility] HISTORY PHYSICALon HISTORY PHYSICAL HNO ID: [id number] Author: TATIANA SUTHERLAND MD Service: Orthopaedic Surgery Author Type: Physician Type: H&P Filed: 02/20/2024 07:46 Note Text: UPDATED HISTORY AND PHYSICAL EXAMINATION SERVICE DATE: 02/20/2024 SERVICE TIME: 7:46 AM PHYSICAL EXAM MUST BE COMPLETED ON ADMISSION The History and Physical (completed in the past 30 days) has been reviewed and the patient has been examined. The contents accurately reflect the patient's condition with the following additions or revisions since the HANDP was completed. Examination indicates no changes. This HANDP can be found in the Electronic Medical Record dated 02/10/24. SIGNATURE: Tatiana Sutherland MD PATIENT NAME: Susan Chandler DATE: February 20, 2024 TIME: 7:46 AM [facility] NURSING PROGon 02-20-2024 NURSING PROG HNO ID: [id number] Author: IAN ARDON RN Service: Nursing Author Type: Registered Nurse Type: Nursing Progress Note Filed: 02/20/2024 09:38 Note Text: Dr. Kearns at bedside for Ultrasound guided Right interscalene nerve block. RN at bedside, pt monitored throughout, BP 158/76 Pulse 67 Temp 36.9 ?C (98.4 ?F) (Temporal) Resp 17 SpO2 95% . Pt medicated with 2mg IV versed after sign in. Pt tolerated procedure without difficulty. Family called to bedside at completion of procedure. Report to OR staff [facility] OPERATIVE NOon 02-20-2024 OPERATIVE NO HNO ID: [id number] Author: TATIANA SUTHERLAND MD Service: Orthopaedic Surgery Author Type: Physician Type: Operative Report Filed: 02/20/2024 12:25 Note Text: OPERATIVE/PROCEDURE REPORT LOG ID: [id number] SURGERY/PROCEDURE DATE: 02/20/2024 INCISION/PROCEDURE START TIME: 10:30 AM INCISION CLOSE/PROCEDURE END TIME: 11:14 AM SURGEON(S)/PROCEDURALIST(S) AND BARREL INSPECTOR(S): Surgeon(s) and Role: * Tatiana Sutherland MD - Primary Nurse Practitioner: Mayra Cosme APRN.[employer]PLE [employer]TER Physician Covered Button Maker: Damaris Mckeon PA-C SURGERY/PROCEDURE(S): Right reverse total shoulder arthroplasty, open biceps tenodesis ANESTHESIA: General SURGERY/PROCEDURE DETAILS: Susan Chandler is a 78 year old woman who presented with persistent pain and shoulder weakness due to massive rotator cuff tear. Based on the level of impairment, I offered reverse total shoulder arthroplasty for the purposes of pain relief and improved function of the shoulder. The risks, benefits, and alternatives to the procedure were discussed in detail in the office prior to scheduling surgery, and the patient expressed agreement and understanding with the plan. The patient was greeted in the preoperative holding area and identified by name and date of . Preoperative nerve block was administered. A preoperative meeting was held between the patient, myself, and other personnel that would be participating in surgery, and all were in agreement that right reverse total shoulder arthroplasty was the intended procedure. The right shoulder was marked as the operative site. The patient was taken to the operating room and transferred to the operating table in the supine position. General anesthesia was induced with endotracheal intubation. The patient was placed in the beach chair position with bilateral lower extremities padded and bilateral lower extremity sequential compression devices were applied. Intravenous antibiotic was given. The shoulder and upper extremity were prepped and draped in a sterile fashion. Time out was performed to confirm the correct patient, procedure, and operative site, and all were in agreement that right reverse shoulder arthroplasty was the correct procedure. I began by making a standard deltopectoral approach to the shoulder. The skin was incised with the bovie, and the subcutaneous tissues were dissected with Bovie electrocautery. The deltopectoral interval was identified using the cephalic vein as a landmark, and the vein was taken medially with the pectoralis muscle. After releasing subdeltoid adhesions, the subacromial space was cleared bluntly and a Brown deltoid retractor was placed. I then identified the long head of biceps tendon within the bicipital groove. There was erythema and degenerative change with flattening of the tendon. Biceps tendon was secured with Fiberwire suture woven through the proximal tendon and the tendon was transected above this. The excess proximal biceps tendon was removed. The tendon was tenodesed to the upper border of pectoralis major using the Fiberwiresuture. The rotator cuff was examined. The patient was found to have complete tearing of supraspinatus and infraspinatus. The glenohumeral joint was exposed by tenotomizing the subscapularis tendon from the lesser tuberosity of the humerus using Bovie electrocautery. The proximal humerus was exposed after releasing soft tissues from around the humeral neck. Using a guide, the humeral head was cut in 30 degrees of retroversion. All remaining osteophytes and irregularities were then removed from the humeral neck with a rongeour. The axillary nerve was palpated and found to be intact. The glenoid was exposed next, with the humeral head retracted posteriorly using a Hohmann retractor. I exposed the coracoid process and removed the stump of the biceps tendon from the superior glenoid. The anterior labrum was removed and a Cobra retractor was placed in the subscapularis fossa. Another Hohmann retractor was then placed superiorly to expose the entire glenoid. The cartilage was found to be minimally worn. I removed the remaining labrum and marked the center of the glenoid with the Bovie. Using sequential guides, the glenoid baseplate was placed and securely fixed using locking screws. I placed the glenosphere and tested the van taper mechanism, then secured this with a central screw. The area was then thoroughly irrigated and inspected for any remaining bone or soft tissue that might cause impingement, and this was removed. The humerus was then brought forward and exposed proximally with the Brown deltoid retractor and sharp Hohmann retractor. The canal was sequentially reamed. The metaphyseal reamer was then used to allow placement of the humerosocket. The canal was thoroughly irrigated. I then placed the final humeral component and seated this with a mallet in 30 degrees of retroversion. A trial hum (more content not included)... Normal [facility] CBC W Auto Differential pane l (Bld)on 02-17-2024 Basophils (Bld) [#/Vol] 0.06 10*3/uL Normal <0.11 [facility] Comment on above: Order Comment: Speci men Type: BLOOD SPECIMEN Ordering Facility: [facility] Address: [address] [place] [address] Performed By: #### 2 4323-8 #### [facility] CLIA [id number] [address] [place] [address] [place] Basophils/100 WBC (Bld) 0.8 % Normal [facility] Comment on above: Order Comment: Speci men Type: BLOOD SPECIMEN Ordering Facility: [facility] Address: [address] [place] [address] Performed By: #### 2 4323-8 #### [facility] CLIA [id number] [address] [place] [address] [place] Differential cell count method Nom (Bld) Auto Normal [facility] Comment on above: Order Comment: Speci men Type: BLOOD SPECIMEN Ordering Facility: [facility] Address: [address] [place] [address] Performed By: #### 2 4323-8 #### [facility] CLIA [id number] [address] [place] [address] [place] Eosinophils (Bld) [#/Vol] 0.18 10*3/uL Normal <0.46 [facility] Comment on above: Order Comment: Speci men Type: BLOOD SPECIMEN Ordering Facility: [facility] Address: [address] [place] [address] Performed By: #### 2 4323-8 #### [facility] CLIA [id number] [address] [place] [address] [place] Eosinophils/100 WBC (Bld) 2.5 % Normal [facility] Comment on above: Order Comment: Speci men Type: BLOOD SPECIMEN Ordering Facility: [facility] Address: [address] [place] [address] Performed By: #### 2 4323-8 #### [facility] CLIA [id number] [address] [place] [address] [place] Erythrocyte distribution width (RBC) [Ratio] 12.8 % Normal 11.5-15.0 [facility] Comment on above: Order Comment: Speci men Type: BLOOD SPECIMEN Ordering Facility: [facility] Address: [address] [place] [address] Performed By: #### 2 4323-8 #### [facility] CLIA [id number] [address] [place] [address] [place] Hematocrit (Bld) [Volume fraction] 46.1 % High 36.0-46.0 [facility] Comment on above: Order Comment: Speci men Type: BLOOD SPECIMEN Ordering Facility: [facility] Address: [address] [place] [address] Performed By: #### 2 4323-8 #### [facility] CLIA [id number] [address] [place] [address] [place] Hemoglobin (Bld) [Mass/Vol] 14.9 g/dL Normal 11.5-15.5 [facility] Comment on above: Order Comment: Speci men Type: BLOOD SPECIMEN Ordering Facility: [facility] Address: [address] [place] [address] Performed By: #### 2 4323-8 #### [facility] CLIA [id number] [address] [place] [address] [place] Immature granulocytes (Bld) [#/Vol] 10*3/uL Normal <0.10 [facility] Comment on above: Order Comment: Speci men Type: BLOOD SPECIMEN Ordering Facility: [facility] Address: [address] [place] [address] Performed By: #### 2 4323-8 #### [facility] CLIA [id number] [address] [place] [address] [place] Immature granulocytes/100 WBC (Bld) 0.3 % Normal [facility] Comment on above: Order Comment: Speci men Type: BLOOD SPECIMEN Ordering Facility: [facility] Address: [address] [place] [address] Performed By: #### 2 4323-8 #### [facility] CLIA [id number] [address] [place] [address] [place] Lymphocytes (Bld) [#/Vol] 2.07 10*3/uL Normal 1.00-4.00 [facility] Comment on above: Order Comment: Speci men Type: BLOOD SPECIMEN Ordering Facility: [facility] Address: [address] [place] [address] Performed By: #### 2 4323-8 #### [facility] CLIA [id number] [address] [place] [address] [place] Lymphocytes/100 WBC (Bld) 28.5 % Normal [facility] Comment on above: Order Comment: Speci men Type: BLOOD SPECIMEN Ordering Facility: [facility] Address: [address] [place] [address] Performed By: #### 2 4323-8 #### [facility] CLIA [id number] [address] [place] [address] [place] MCH (RBC) [Entitic mass] 28.7 pg Normal 26.0-34.0 [facility] Comment on above: Order Comment: Speci men Type: BLOOD SPECIMEN Ordering Facility: [facility] Address: [address] [place] [address] Performed By: #### 2 4323-8 #### [facility] CLIA [id number] [address] [place] [address] [place] MCHC (RBC) [Mass/Vol] 32.3 g/dL Normal 30.5-36.0 [facility] Comment on above: Order Comment: Speci men Type: BLOOD SPECIMEN Ordering Facility: [facility] Address: [address] [place] [address] Performed By: #### 2 4323-8 #### [facility] CLIA [id number] [address] [place] [address] [place] MCV (RBC) [Entitic vol] 88.7 fL Normal 80.0-100.0 [facility] Comment on above: Order Comment: Speci men Type: BLOOD SPECIMEN Ordering Facility: [facility] Address: [address] [place] [address] Performed By: #### 2 4323-8 #### [facility] CLIA [id number] [address] [place] [address] [place] Monocytes (Bld) [#/Vol] 0.65 10*3/uL Normal <0.87 [facility] Comment on above: Order Comment: Speci men Type: BLOOD SPECIMEN Ordering Facility: [facility] Address: [address] [place] [address] Performed By: #### 2 4323-8 #### [facility] CLIA [id number] [address] [place] [address] [place] Monocytes/100 WBC (Bld) 8.9 % Normal [facility] Comment on above: Order Comment: Speci men Type: BLOOD SPECIMEN Ordering Facility: [facility] Address: [address] [place] [address] Performed By: #### 2 4323-8 #### [facility] CLIA [id number] [address] [place] [address] [place] Neutrophils (Bld) [#/Vol] 4.29 10*3/uL Normal 1.45-7.50 [facility] Comment on above: Order Comment: Speci men Type: BLOOD SPECIMEN Ordering Facility: [facility] Address: [address] [place] [address] Performed By: #### 2 4323-8 #### [facility] CLIA [id number] [address] [place] [address] [place] Neutrophils/100 WBC (Bld) 59.0 % Normal [facility] Comment on above: Order Comment: Speci men Type: BLOOD SPECIMEN Ordering Facility: [facility] Address: [address] [place] [address] Performed By: #### 2 4323-8 #### [facility] CLIA [id number] [address] [place] [address] [place] Nucleated RBC (Bld) [#/Vol] 10*3/uL Normal <0.01 [facility] Comment on above: Order Comment: Speci men Type: BLOOD SPECIMEN Ordering Facility: [facility] Address: [address] [place] [address] Performed By: #### 2 4323-8 #### [facility] CLIA [id number] [address] [place] [address] [place] Nucleated RBC/100 WBC (Bld) [Ratio] 0.0 /100 WBC Normal [facility] Comment on above: Order Comment: Speci men Type: BLOOD SPECIMEN Ordering Facility: [facility] Address: [address] [place] [address] Performed By: #### 2 4323-8 #### [facility] CLIA [id number] [address] [place] [address] [place] Platelet mean volume (Bld) [Entitic vol] 10.1 fL Normal 9.0-12.7 [facility] Comment on above: Order Comment: Speci men Type: BLOOD SPECIMEN Ordering Facility: [facility] Address: [address] [place] [address] Performed By: #### 2 4323-8 #### [facility] CLIA [id number] [address] [place] [address] [place] Platelets (Bld) [#/Vol] 188 10*3/uL Normal 150-400 [facility] Comment on above: Order Comment: Speci men Type: BLOOD SPECIMEN Ordering Facility: [facility] Address: [address] [place] [address] Performed By: #### 2 4323-8 #### [facility] CLIA [id number] [address] [place] [address] [place] RBC (Bld) [#/Vol] 5.20 10*6/uL Normal 3.90-5.[address] [facility] Comment on above: Order Comment: Speci men Type: BLOOD SPECIMEN Ordering Facility: [facility] Address: [address] [place] [address] Performed By: #### 2 4323-8 #### [facility] CLIA [id number] [address] [place] [address] [place] WBC (Bld) [#/Vol] 7.27 10*3/uL Normal 3.70-11.[address] [facility] Comment on above: Order Comment: Speci men Type: BLOOD SPECIMEN Ordering Facility: [facility] Address: [address] [place] [address] Performed By: #### 2 4323-8 #### [facility] CLIA [id number] [address] [place] [address] [place] Comprehensive metabolic 2000 panelon 02-17-2024 Albumin [Mass/Vol] 4.4 g/dL Normal 3.9-4.9 [facility] Comment on above: Order Comment: Speci men Type: BLOOD SPECIMEN Ordering Facility: [facility] Address: [address] [place] [address] Performed By: #### 2 4323-8 #### [facility] CLIA [id number] [address] [place] [address] [place] ALP [Catalytic activity/Vol] 63 U/L Normal 34-123 [facility] Comment on above: Order Comment: Speci men Type: BLOOD SPECIMEN Ordering Facility: [facility] Address: [address] [place] [address] Performed By: #### 2 4323-8 #### [facility] CLIA [id number] [address] [place] [address] [place] ALT [Catalytic activity/Vol] 21 U/L Normal 7-38 [facility] Comment on above: Order Comment: Speci men Type: BLOOD SPECIMEN Ordering Facility: [facility] Address: [address] [place] [address] Performed By: #### 2 4323-8 #### [facility] CLIA [id number] [address] [place] [address] [place] Anion gap [Moles/Vol] 13 mmol/L Normal 8-15 [facility] Comment on above: Order Comment: Speci men Type: BLOOD SPECIMEN Ordering Facility: [facility] Address: [address] [place] [address] Performed By: #### 2 4323-8 #### [facility] CLIA [id number] [address] [place] [address] [place] AST [Catalytic activity/Vol] 35 U/L Normal 13-35 [facility] Comment on above: Order Comment: Speci men Type: BLOOD SPECIMEN Ordering Facility: [facility] Address: [address] [place] [address] Performed By: #### 2 4323-8 #### [facility] CLIA [id number] [address] [place] [address] [place] Bilirubin [Mass/Vol] 0.6 mg/dL Normal 0.2-1.3 [facility] Comment on above: Order Comment: Speci men Type: BLOOD SPECIMEN Ordering Facility: [facility] Address: [address] [place] [id number] Performed By: #### 2 4323-8 #### [facility] CLIA [id number] [address] [place] [id number] [place] Calcium [Mass/Vol] 10.6 mg/dL High 8.5-10.2 [facility] Comment on above: Order Comment: Speci men Type: BLOOD SPECIMEN Ordering Facility: [facility] Address: [address] [place] [id number] Performed By: #### 2 4323-8 #### [facility] CLIA [id number] [address] [place] [address] [place] Chloride [Moles/Vol] 105 mmol/L Normal 98-107 [facility] Comment on above: Order Comment: Speci men Type: BLOOD SPECIMEN Ordering Facility: [facility] Address: [address] [place], [place] [address] Performed By: #### 2 4323-8 #### [facility] CLIA [id number] [address] [place] [address] [place] CO2 [Moles/Vol] 26 mmol/L Normal 22-30 [facility] Comment on above: Order Comment: Speci men Type: BLOOD SPECIMEN Ordering Facility: [facility] Address: [address] [place], [place] [address] Performed By: #### 2 4323-8 #### [facility] CLIA [id number] [address] [place] [id number] [place] Creatinine [Mass/Vol] 0.72 mg/dL Normal 0.58-0.96 [facility] Comment on above: Order Comment: Speci men Type: BLOOD SPECIMEN Ordering Facility: [facility] Address: [address] [place] [id number] Performed By: #### 2 4323-8 #### [facility] CLIA [id number] [address] [place] [address] [place] Creatinine and Glomerular filtration rate.predicted panel (S/P/Bld) 87 mL/min/1.73m??? Normal >=60 [facility] Comment on above: Order Comment: Specyinka sousa Type: BLOOD SPECIMEN Ordering Facility: [facility] Address: [address] [place] [address] Result Comment: Tanja mated Glomerular Filtration Rate (eGFR) is calculated using the 2020 CKD-EPI creatinine equation. This equation utilizes serum creatinine, sex, and age as parameters. The creatinine assay has traceable calibration to isotope dilution-mass spectrometry. Refer to KDIGO guidelines for clinical interpretation. In patients with unstable renal function, e.g. those with acute kidney injury, the eGFR may not accurately reflect actual GFR. Performed By: #### 2 4323-8 #### [facility] CLIA [id number] [address] [place] [address] [place] Glucose [Mass/Vol] 187 mg/dL High 74-99 [facility] Comment on above: Order Comment: Elaine sousa Type: BLOOD SPECIMEN Ordering Facility: [facility] Address: [address] [place] [address] Result Comment: The [place] Diabetes Association (ADA) provides guidance for cutoff values for fasting glucose and random glucose. The ADA defines fasting as no caloric intake for at least 8 hours. Fasting plasma glucose results between 100 to 125 mg/dL indicate increased risk for diabetes (prediabetes). Fasting plasma glucose results greater than or equal to 126 mg/dL meet the criteria for diagnosis of diabetes. In the absence of unequivocal hyperglycemia, results should be confirmed by repeat testing. In a patient with classic symptoms of hyperglycemia or hyperglycemic crisis, random plasma glucose results greater than or equal to 200 mg/dL meet the criteria for diagnosis of diabetes. Reference: Standards of Medical Care in Diabetes 2016, [place] Diabetes Association. Diabetes Care. 2016.39(Suppl 1). Performed By: #### 2 4323-8 #### [facility] CLIA [id number] [address] [id number] [address] [place] Potassium [Moles/Vol] 4.3 mmol/L Normal 3.7-5.1 [facility] Comment on above: Order Comment: Speci men Type: BLOOD SPECIMEN Ordering Facility: [facility] Address: [address] [place] [address] Performed By: #### 2 4323-8 #### [facility] CLIA [id number] [address] [place] [address] [place] Protein [Mass/Vol] 7.3 g/dL Normal 6.3-8.0 [facility] Comment on above: Order Comment: Speci men Type: BLOOD SPECIMEN Ordering Facility: [facility] Address: [address] [place] [address] Performed By: #### 2 4323-8 #### [facility] CLIA [id number] [address] [place] [address] [place] Sodium [Moles/Vol] 144 mmol/L Normal 136-144 [facility] Comment on above: Order Comment: Speci men Type: BLOOD SPECIMEN Ordering Facility: [facility] Address: [address] [place] [address] Performed By: #### 2 4323-8 #### [facility] CLIA [id number] [address] [place] [address] [place] Urea nitrogen [Mass/Vol] 14 mg/dL Normal 7-21 [facility] Comment on above: Order Comment: Speci men Type: BLOOD SPECIMEN Ordering Facility: [facility] Address: [address] [place] [address] Performed By: #### 2 4323-8 #### [facility] CLIA [id number] [address] [place] [address] [place] HbA1c (Bld)on 02-17-2024 Average glucose Estimated from glycated hemoglobin (Bld) [Mass/Vol] 180 mg/dL Normal [facility] Comment on above: Order Comment: Speci men Type: BLOOD SPECIMEN Ordering Facility: [facility] Address: [address] [place] [address] Result Comment: eAG: (Estimated average glucose) is a calculated value from HgbA1c and is personal financial representative of the average blood glucose level in the last 2-3 month period. Performed By: #### 5 5454-3 #### [facility] CLIA [id number] [address] [place] [address] [place] HbA1c (Bld) [Mass fraction] 7.9 % High 4.3-5.6 [facility] Comment on above: Order Comment: Speci men Type: BLOOD SPECIMEN Ordering Facility: [facility] Address: [address] [place] [address] Result Comment: [place] Diabetes Association guidelines indicate that patients with HgbA1c in the range 5.7-6.4% are at increased risk for development of diabetes, and intervention by lifestyle modification may be beneficial. HgbA1c greater or equal to 6.5% is considered diagnostic of diabetes. Performed By: #### 5 5454-3 #### [facility] CLIA [id number] [address] [place] [address] [place] NM CARDIAC PERF STRESS/PHARM on 02-17-2024 NM CARDIAC PERF STRESS/PHARM * * *Final Report* * * DATE OF EXAM: Feb 17 2024 10:12AM N 0006 - NM CARDIAC PERF STRESS/PHARM / PROCEDURE REASON: multiple diagnoses * * * * Physician Interpretation * * * * Stress Education Program Associate Report: [facility] BISI-2 Date of service: 02/17/2024 8:08:45 AM Supervising physician: Tom Santillan MD PATIENT: Name: MRS. SUSAN CHANDLER Age: 78 years Gender: F The supervising physician was in the department and immediately available. * * * Final * * * PATIENT: Name: MRS. SUSAN CHANDLER Age: 78 years Gender: F CONCLUSIONS: 1. SPECT Perfusion Study: Normal. 2. There is no scintigraphic evidence for inducible ischemia. 3. No evidence of scarred myocardium. 4. Left ventricle is normal in size. The left ventricle systolic function is hyperdynamic. 5. Right ventricle is normal in size. The right ventricle systolic function is normal. 6. This is a low risk scan. Gated Stress FBP Gated Rest FBP LVEF % 88 89 Prior Study Comparison No prior nuclear cardiology exam available for comparison. Nuclear Med Report:1-Day Gated SPECT Myocardial Perfusion with Regadenoson Stress: Myocardial perfusion imaging was performed at rest 30 minutes following the IV injection of the radiotracer. The patient received 0.4 mg of regadenoson, via rapid IV push, immediately followed by radiotracer IV. Gated post stress tomographic imaging was performed 30 to 60 minutes later. See administered radiotracer and doses below. [facility] [place] Date of service: 02/17/2024 8:08:45 AM Ordering Physician: NESTOR RUBY. Requesting Physician: NESTOR RUBY Indication: Abnormal Baseline ECG, Assessment for suspected CAD, CP - ECG uniterpretable OR unable to exercise and Preop evaluation for noncardiac surgery with low/intermediate clinical risk Fellow: Alex Lux MD Interpreting physician: Tom Santillan MD Height: 152.40 cm BSA: 1.92 m? Weight: 87.10 kg BMI: 37.5 kg/m? Imaging Protocol Limitation Reason Breast attenuation. CT Dose-Length Product(DLP): 21.0 mGy * cm. CT Dose Reduction Employed: Yes. Exam Type: Rest Stress Radiopharm: Tc-99m Tetrofosmin Tc-99m Tetrofosmin Dosage(mCi): 17.9 50.1 Atten Correction: not performed performed Stress Agent: Regadenoson 0.4mg Supply provided from [facility] Resting Blood Press: 188/98 mmHg Image Quality The overall study imaging quality was deemed to be fair. The following technical issues were noted: Breast attenuation. FINDINGS: Left Ventricle Wall Motion: Stress IR:3D - All segments are normal. Rest IR:3D - Gated Stress FBP - Reversibility - Rest IR:3D:SC - Gated Rest FBP - Stress IR:3D Stress IR:3D Gated Stress FBP Gated Rest FBP LVEF: 88 % 89 % ED Volume: 64 ml 79 ml ES Volume: 8 ml 9 ml TID: 1.02 Perfusion Findings Stress IR:3D - Summed Score=0 All segments demonstrate normal perfusion. Rest IR:3D - Summed Score=0 All segments demonstrate normal perfusion. Rest IR:3D:SC - Summed Score=1 There is a mild perfusion defect in the apex. All remaining scored segments show normal perfusion. Stress IR:3D Rest IR:3D Summed Score=0 Summed Score=0 LEFT VENTRICLE The left ventricle is normal in size. Left ventricular systolic function is hyperdynamic. Right Ventricle The right ventricle is normal in size. Right ventricle systolic function is normal. Stress Test Findings: There is no scintigraphic evidence for inducible ischemia. There is no evidence of scarring. * * * Final * * * NM CTAC Report: [facility] Date of service: 02/17/2024 8:08:45 AM CTAC interpreting physician: Tom Santillan MD PATIENT: Name: MRS. SUSAN CHANDLER Age: 78 years Gender: F 1. Incidental Findings from limited non-diagnostic CTAC: - Coronary calcifications visualized. * * * Final * * * Stress ECG Report: [facility] Date of service: 02/17/2024 8:08:45 AM Ordering physician: NESTOR RUBY installation specialist: Nadia Moncada MS, EP Covered Button Maker: Selene Fields Fellow: Alex Stark MD and Ava Lux MD Interpreting physician: Tom Santillan MD Patient name: MRS. SUSAN CHANDLER Age: 78 years Gender: F Height: 152.40 cm BSA: 1.92 m? Weight: 87.10 kg BMI: 37.5 kg/m? Indication: Abnormal resting ECG and Encounter for pre-procedural cardiovascular examination for non-cardiac surgery Stress ECG Conclusion: Conclusion: Normal Stress ECG S (more content not included)... Normal [facility] Heart Perfusion W stress and W radionuclide Idris 02-17-2024 * * *Final Report* * * DATE OF EXAM: Feb 17 2024 10:12AM [facility] 0006 - HI CARDIAC PERF STRESS/PHARM / PROCEDURE REASON: multiple diagnoses * * * * Physician Interpretation * * * * Stress Education Program Associate Report: [facility] Date of service: 02/17/2024 8:08:45 AM Supervising physician: Tom Santillan MD PATIENT: Name: MRS. SUSAN CHANDLER Age: 78 years Gender: F The supervising physician was in the department and immediately available. * * * Final * * * PATIENT: Name: MRS. SUSAN CHANDLER Age: 78 years Gender: F CONCLUSIONS: 1. SPECT Perfusion Study: Normal. 2. There is no scintigraphic evidence for inducible ischemia. 3. No evidence of scarred myocardium. 4. Left ventricle is normal in size. The left ventricle systolic function is hyperdynamic. 5. Right ventricle is normal in size. The right ventricle systolic function is normal. 6. This is a low risk scan. Gated Stress FBP Gated Rest FBP LVEF % 88 89 Prior Study Comparison No prior nuclear cardiology exam available for comparison. Nuclear Med Report:1-Day Gated SPECT Myocardial Perfusion with Regadenoson Stress: Myocardial perfusion imaging was performed at rest 30 minutes following the IV injection of the radiotracer. The patient received 0.4 mg of regadenoson, via rapid IV push, immediately followed by radiotracer IV. Gated post stress tomographic imaging was performed 30 to 60 minutes later. See administered radiotracer and doses below. [facility] [place] Date of service: 02/17/2024 8:08:45 AM Ordering Physician: NESTOR RUBY. Requesting Physician: NESTOR RUBY Indication: Abnormal Baseline ECG, Assessment for suspected CAD, CP - ECG uniterpretable OR unable to exercise and Preop evaluation for noncardiac surgery with low/intermediate clinical risk Fellow: Alex Lux MD Interpreting physician: Tom Santillan MD Height: 152.40 cm BSA: 1.92 m Weight: 87.10 kg BMI: 37.5 kg/m Imaging Protocol Limitation Reason Breast attenuation. CT Dose-Length Product(DLP): 21.0 mGy * cm. CT Dose Reduction Employed: Yes. Exam Type: Rest Stress Radiopharm: Tc-99m Tetrofosmin Tc-99m Tetrofosmin Dosage(mCi): 17.9 50.1 Atten Correction: not performed performed Stress Agent: Regadenoson 0.4mg Supply provided from [facility] Resting Blood Press: 188/98 mmHg Image Quality The overall study imaging quality was deemed to be fair. The following technical issues were noted: Breast attenuation. FINDINGS: Left Ventricle Wall Motion: Stress IR:3D - All segments are normal. Rest IR:3D - Gated Stress FBP - Reversibility - Rest IR:3D:SC - Gated Rest FBP - Stress IR:3D Stress IR:3D Gated Stress FBP Gated Rest FBP LVEF: 88 % 89 % ED Volume: 64 ml 79 ml ES Volume: 8 ml 9 ml TID: 1.02 Perfusion Findings Stress IR:3D - Summed Score=0 All segments demonstrate normal perfusion. Rest IR:3D - Summed Score=0 All segments demonstrate normal perfusion. Rest IR:3D:SC - Summed Score=1 There is a mild perfusion defect in the apex. All remaining scored segments show normal perfusion. Stress IR:3D Rest IR:3D Summed Score=0 Summed Score=0 LEFT VENTRICLE The left ventricle is normal in size. Left ventricular systolic function is hyperdynamic. Right Ventricle The right ventricle is normal in size. Right ventricle systolic function is normal. Stress Test Findings: There is no scintigraphic evidence for inducible ischemia. There is no evidence of scarring. * * * Final * * * NM CTAC Report: [facility] Date of service: 02/17/2024 8:08:45 AM CTAC interpreting physician: Tom Santillan MD PATIENT: Name: MRS. SUSAN CHANDLER Age: 78 years Gender: F 1. Incidental Findings from limited non-diagnostic CTAC: - Coronary calcifications visualized. * * * Final * * * Stress ECG Report: [facility] Date of service: 02/17/2024 8:08:45 AM Ordering physician: NESTOR RUBY installation specialist: Cedric (more content not included)... DIVISION OF RADIOLOGY Provider, [facility] - 02/17/2024 * * *Final Report* * * DATE OF EXAM: Feb 17 2024 10:12AM N 0006 - NM CARDIAC PERF STRESS/PHARM / PROCEDURE REASON: multiple diagnoses * * * * Physician Interpretation * * * * Stress Education Program Associate Report: [facility] Date of service: 02/17/2024 8:08:45 AM Supervising physician: Tom Santillan MD PATIENT: Name: MRS. SUSAN CHANDLER Age: 78 years Gender: F The supervising physician was in the department and immediately available. * * * Final * * * PATIENT: Name: MRS. SUSAN CHANDLER Age: 78 years Gender: F CONCLUSIONS: 1. SPECT Perfusion Study: Normal. 2. There is no scintigraphic evidence for inducible ischemia. 3. No evidence of scarred myocardium. 4. Left ventricle is normal in size. The left ventricle systolic function is hyperdynamic. 5. Right ventricle is normal in size. The right ventricle systolic function is normal. 6. This is a low risk scan. Gated Stress FBP Gated Rest FBP LVEF % 88 89 Prior Study Comparison No prior nuclear cardiology exam available for comparison. Nuclear Med Report:1-Day Gated SPECT Myocardial Perfusion with Regadenoson Stress: Myocardial perfusion imaging was performed at rest 30 minutes following the IV injection of the radiotracer. The patient received 0.4 mg of regadenoson, via rapid IV push, immediately followed by radiotracer IV. Gated post stress tomographic imaging was performed 30 to 60 minutes later. See administered radiotracer and doses below. [facility] Date of service: 02/17/2024 8:08:45 AM Ordering Physician: NESTOR RUBY. Requesting Physician: NESTOR RUBY Indication: Abnormal Baseline ECG, Assessment for suspected CAD, CP - ECG uniterpretable OR unable to exercise and Preop evaluation for noncardiac surgery with low/intermediate clinical risk Fellow: Alex Lux MD Interpreting physician: Tom Santillan MD Height: 152.40 cm BSA: 1.92 m Weight: 87.10 kg BMI: 37.5 kg/m Imaging Protocol Limitation Reason Breast attenuation. CT Dose-Length Product(DLP): 21.0 mGy * cm. CT Dose Reduction Employed: Yes. Exam Type: Rest Stress Radiopharm: Tc-99m Tetrofosmin Tc-99m Tetrofosmin Dosage(mCi): 17.9 50.1 Atten Correction: not performed performed Stress Agent: Regadenoson 0.4mg Supply provided from [facility] Resting Blood Press: 188/98 mmHg Image Quality The overall study imaging quality was deemed to be fair. The following technical issues were noted: Breast attenuation. FINDINGS: Left Ventricle Wall Motion: Stress IR:3D - All segments are normal. Rest IR:3D - Gated Stress FBP - Reversibility - Rest IR:3D:SC - Gated Rest FBP - Stress IR:3D Stress IR:3D Gated Stress FBP Gated Rest FBP LVEF: 88 % 89 % ED Volume: 64 ml 79 ml ES Volume: 8 ml 9 ml TID: 1.02 Perfusion Findings Stress IR:3D - Summed Score=0 All segments demonstrate normal perfusion. Rest IR:3D - Summed Score=0 All segments demonstrate normal perfusion. Rest IR:3D:SC - Summed Score=1 There is a mild perfusion defect in the apex. All remaining scored segments show normal perfusion. Stress IR:3D Rest IR:3D Summed Score=0 Summed Score=0 LEFT VENTRICLE The left ventricle is normal in size. Left ventricular systolic function is hyperdynamic. Right Ventricle The right ventricle is normal in size. Right ventricle systolic function is normal. Stress Test Findings: There is no scintigraphic evidence for inducible ischemia. There is no evidence of scarring. * * * Final * * * NM CTAC Report: [facility] Date of service: 02/17/2024 8:08:45 AM CTAC interpreting physician: Tom Santillan MD PATIENT: Name: MRS. SUSAN CHANDLER Age: 78 years Gender: F 1. Incidental Findings from limited non-diagnostic CTAC: - Coronary calcifications visualized. * * * Final * * * Stress ECG Report: [facility] Date of service: 02/17/2024 8:08:45 AM Ordering physician: NESTOR RUBY installation specialist: Nadia Moncada MS, RCEP Covered Button Maker: Selene Fields Fellow: Alex Stark MD and Ava Lux MD Interpreting physician: Tom Santillan MD Patient name: MRS. SUSAN CHANDLER Age: 78 years Gender: F Height: 152.40 cm BSA: 1.92 m Weight: 87.10 kg BMI: 37.5 kg/m Indication: (more content not included)... [facility] Radiology Study observation (narrative) [facility] NM Heart Perfusion W stress and W radionuclide IVOrdered By: [facility] Provider on 02-17-2024 [facility] ECHOon 02-13-2024 Echocardiography Echocardiography Rep ort: Transthoracic Echo [facility] Date of service: 02/13/2024 3:20:12 PM CREDIT COUNSELOR Ordering physician: NESTOR RUBY Indication: Abnormal ECG Technologist: Mayra Dietz [facility] Interpreting physician: Tasneem Bowers MD PATIENT: Name: MRS. SUSAN CHANDLER : 1945 Age: 78 years Gender: F History of hypertension and diabetes mellitus. Primary rhythm: sinus. Height: 152.40 cm BSA: 1.92 m Weight: 87.09 kg BMI: 37.5 kg/m Heart rate 75 bpm Technically difficult exam due to body habitus. Color Doppler was utilized to interrogate the cardiac valves assessed and spectral Doppler was utilized to determine the flow velocities and pressure gradients reported in this exam. Myocardial strain analysis was performed in this exam to aid in the assessment of cardiac function. MEASUREMENTS: Value Indexed Normal Max aortic dimension 3.3 cm Ao < 3.8 Left atrial volume 31 ml (biplane A-L) 16 ml/m Bernice <= 34 LV ID (diastole) 4.0 cm (2D) 2.06 cm/m LV ID (systole) 2.5 cm (2D) 1.28 cm/m IVS, leaflet tips 1.2 cm (2D) Posterior wall thickness 1.2 cm (2D) Left ventricular mass 161 g (2D) 84 g/m Global peak long strain -18.4 % LV stroke volume 39 ml (2D biplane) LV end diastolic volume 66 ml (2D biplane) 34.6 ml/m 29<=EDVi<62 LV end systolic volume 27 ml (2D biplane) 14.0 ml/m Ejection Fraction 59 % (2D biplane) EF > 54 FINDINGS: LEFT VENTRICLE The left ventricle is normal in size. There is mild concentric left ventricular hypertrophy. Left ventricular systolic function is normal. Global LV myocardial strain is normal. Grade I left ventricular diastolic dysfunction. Mitral annular lateral E/e': 13.7. Mitral annular septal E/e': 19.2. Wall Motion: All scored segments are normal. RIGHT VENTRICLE The right ventricle is normal in size. Right ventricular systolic function is normal. RV systolic tissue Doppler velocity is 16.0 cm/s. Tricuspid annular displacement is 1.9 cm. Estimated right ventricular systolic pressure is 48 mmHg consistent with mild pulmonary hypertension. Estimated right atrial pressure is 8 mmHg based on IVC assessment. LEFT ATRIUM The left atrial cavity is normal in size. RIGHT ATRIUM The right atrial cavity is normal in size. Inferior Vena Cava: The inferior vena cava appears normal measuring 1.2 cm. The vessel decreases less than 50 percent with inspiration. MITRAL VALVE There is mild mitral annular calcification observed posterior. There is no mitral valve regurgitation. There is mild thickening. The pressure half time is 52 msec. The peak mitral E/A ratio is 0.72. The average mitral E/e' ratio is 16.5. The mitral flow deceleration time is 180 msec. TRICUSPID VALVE The tricuspid valve leaflets are structurally normal. There is mild (1+) tricuspid valve regurgitation. AORTIC VALVE The aortic valve was not well seen There is no aortic valve regurgitation. The peak gradient is 14 mmHg (peak velocity = 184.5 cm/s). PULMONIC VALVE The pulmonic valve cusps are structurally normal. There is no pulmonic valve regurgitation. AORTA Measurements - Mid ascending aorta 3.3 cm. PERICARDIUM There is no pericardial effusion. There is an epicardial fat pad. CONCLUSIONS: - Technically difficult exam due to body habitus. - Exam indication: Abnormal ECG - The left ventricle is normal in size. There is mild concentric left ventricular hypertrophy. Left ventricular systolic function is normal. EF = 59 5% (2D biplane) Grade I left ventricular diastolic dysfunction. - The right ventricle is normal in size. Right ventricular systolic function is normal. - Ascending aorta measures 3.3cm. - EStimated RVSP is 48mmHg consistent with mild pulmonary hypertension. - The patient has not had a prior CC echocardiographic exam for comparison. * * * Final * * * CC [employer] [facility] : [id number] [employer] Normal [facility] PT EDon 02-13-2024 PT ED HNO ID: [id number] Author: TASNEEM MARTINEZ PA-C Service: General Surgery Author Type: Physician Covered Button Maker Type: Patient Education Filed: 02/13/2024 13:54 Note Text: Summary: Review of patient education Susan Chandler's medication list was reviewed and patient was noted to be taking Farxiga. Reviewed PAT note from 02/10/24 documenting her pre-op medication instructions including to stop Farxiga 3 days before surgery on 02/20/[address] Sutherland. SIGNATURE: Tasneem Martinez PA-C PATIENT NAME: Susan Jose Geraldine DATE: February 13, 2024 [facility] 02-10-2024 CNPN Telephone (OSVALDOIndotrading) SUSAN CHANDLER ([id number]) 1945 F Date Time Provider Department 02/10/24 NESTOR RUBY During your visit today, we recorded the following information about you: Nestor Ruby APRN.[employer]TER 02/10/2024 10:15 AM Signed Please request Dr. Kinney last OV and respiratory testing results. DOS 02/24/2024. Cydney Luque LPN 02/10/2024 10:45 AM Signed Fax request sent to Dr. Kinney's office requesting last office visit and testing for upcoming surgery 02/24/24. MARILEE Tejeda Jessica, LPN 02/10/2024 1:10 PM Signed Received last office visit but not any pulmonary testing. Original sent to [facility] through [employer]. Cydney Luque LPN Allergies As of Date: 02/10/2024 Noted Allergy Reaction PENICILLINS 11/10/2021 4 - Hives PERCOCET (OXYCODONE-ACETAMINOPHEN) 9 - Itching VICODIN (HYDROCODONE-ACETAMINOPHE*0 11/10/2021 4 - Hives Date Reviewed: 02/10/2024 Reviewed by: Nestor Ruby APRN.[employer]PLE [employer] C[employer]TER - Fully Assessed Reason for Visit: Request Outside Medical Records [[id number]] Prescriptions as of 02/15/2024 - calcium polycarbophil (FIBERCON) 625 mg tablet Take 625 mg by mouth once daily. - buprenorphine (BUTRANS) 15 mcg/hour patch Apply 1 patch to skin every 7 days. Remove old patch. - mupirocin (BACTROBAN) 2 % ointment Apply 0.5 inch with cotton swab (Q-tip) to each nostril in the morning and evening for 5 days prior to and including day of surgery. - FARXIGA 10 mg tablet Take 1 tablet by mouth every afternoon. - valsartan (DIOVAN) 160 mg tablet Take 160 mg by mouth once daily. - meloxicam (MOBIC) 7.5 mg tablet Take 7.5 mg by mouth once daily. - rosuvastatin (CRESTOR) 10 mg tablet Take 10 mg by mouth every evening. - traMADol (ULTRAM) 50 mg tablet Take 50 mg by mouth every 6 hours as needed for pain. - buPROPion SR (WELLBUTRIN SR) 150 mg 12 hr tablet Take 150 mg by mouth every 12 hours. - calcium carbonate (CALTRATE) 600 mg calcium (1,500 mg) tab Take 600 mg by mouth once daily. - atenolol (TENORMIN) 50 mg tablet - escitalopram oxalate (LEXAPRO) 10 mg tablet - gabapentin (NEURONTIN) 300 mg capsule Take 300 mg by mouth three times daily. - aspirin, enteric coated (ASPIRIN, ENTERIC COATED) 81 mg EC tablet Take 81 mg by mouth once daily. - traZODone (DESYREL) 50 mg tablet TAKE 2 TABLETS BY MOUTH EVERY DAY AT BEDTIME Problem List As Of Date 02/10/2024 Noted Resolved Mild intermittent asthma, uncomplicated [J45.20]04/11/2023 Essential (primary) hypertension [I10] 01/11/2023 Depressive disorder [F32.A] 02/10/2024 History of tobacco use [Z87.891] 06/10/2022 COPD (chronic obstructive pulmonary disease) (H*02/10/2024 Mixed hyperlipidemia [E78.2] 02/10/2024 RBBB [I45.10] 02/10/2024 Abnormal electrocardiogram [R94.31] 02/10/2024 Class 2 severe obesity due to excess calories w*02/10/2024 JEANNIE (obstructive sleep apnea) [G47.33] 02/10/2024 Type 2 diabetes mellitus without complication, *02/10/2024 Encounter Status:Closed by NESTOR RUBY on 02/15/24 Normal [facility] Telephone (MNPACC) SUSAN CHANDLER ([id number]) 1945 F Date Time Provider Department 02/10/24 [facility] During your visit today, we recorded the following information about you: Ton Wiley 02/10/2024 1:11 PM Signed ----- Message from Nestor Ruby APRN.DELIA sent at 02/10/2024 12:50 PM EDT ----- I ordered a lexiscan and echo on this patient. And for some reason the schedulers here scheduled it at [facility] and they are asking for auth. Can this be done at [facility] somewhere and notify pt it needs to be completed here so we have it done and her surgery stays on track for the same day. ----- Message ----- From: Sarahi Davidson LPN Sent: 02/10/2024 12:44 PM EDT To: Nestor Ruby APRN.DELIA; Cydney Luque LPN Just got a call from [facility] that they need an auth on the stress test. It looks like a referral was already placed- so I imagine we will need to let them know when we hear back. The surgery is scheduled for 02/19, hopefully there is enough time. Ton Cobb 02/10/2024 1:14 PM Signed pt scheduled main [place]erm[place] 02/14/2024 Cydney Luque LPN 02/15/2024 8:33 AM Signed Looks like Echo was completed on 02/13/24 and lexiscan is scheduled on 02/17/24. MARILEE Tejeda Jessica, LPN 02/20/2024 8:17 AM Signed Echo and lexiscan both resulted. Cydney Luque LPN Allergies As of Date: 02/10/2024 Noted Allergy Reaction PENICILLINS 11/10/2021 4 - Hives PERCOCET (OXYCODONE-ACETAMINOPHEN) 9 - Itching VICODIN (HYDROCODONE-ACETAMINOPHE*0 11/10/2021 4 - Hives Date Reviewed: 02/10/2024 Reviewed by: Nestor Ruby APRN.[employer]TER - Fully Assessed Prescriptions as of 02/20/2024 - calcium polycarbophil (FIBERCON) 625 mg tablet Take 625 mg by mouth once daily. - buprenorphine (BUTRANS) 15 mcg/hour patch Apply 1 patch to skin every 7 days. Remove old patch. - mupirocin (BACTROBAN) 2 % ointment Apply 0.5 inch with cotton swab (Q-tip) to each nostril in the morning and evening for 5 days prior to and including day of surgery. - FARXIGA 10 mg tablet Take 1 tablet by mouth every afternoon. - valsartan (DIOVAN) 160 mg tablet Take 160 mg by mouth once daily. - meloxicam (MOBIC) 7.5 mg tablet Take 7.5 mg by mouth once daily. - rosuvastatin (CRESTOR) 10 mg tablet Take 10 mg by mouth every evening. - traMADol (ULTRAM) 50 mg tablet Take 50 mg by mouth every 6 hours as needed for pain. - buPROPion SR (WELLBUTRIN SR) 150 mg 12 hr tablet Take 150 mg by mouth every 12 hours. - calcium carbonate (CALTRATE) 600 mg calcium (1,500 mg) tab Take 600 mg by mouth once daily. - atenolol (TENORMIN) 50 mg tablet - escitalopram oxalate (LEXAPRO) 10 mg tablet - gabapentin (NEURONTIN) 300 mg capsule Take 300 mg by mouth three times daily. - aspirin, enteric coated (ASPIRIN, ENTERIC COATED) 81 mg EC tablet Take 81 mg by mouth once daily. - traZODone (DESYREL) 50 mg tablet TAKE 2 TABLETS BY MOUTH EVERY DAY AT BEDTIME Problem List As Of Date 02/10/2024 Noted Resolved Mild intermittent asthma, uncomplicated [J45.20]04/11/2023 Essential (primary) hypertension [I10] 01/11/2023 Depressive disorder [F32.A] 02/10/2024 History of tobacco use [Z87.891] 06/10/2022 COPD (chronic obstructive pulmonary disease) (H*02/10/2024 Mixed hyperlipidemia [E78.2] 02/10/2024 RBBB [I45.10] 02/10/2024 Abnormal electrocardiogram [R94.31] 02/10/2024 Class 2 severe obesity due to excess calories w*02/10/2024 JEANNIE (obstructive sleep apnea) [G47.33] 02/10/2024 Type 2 diabetes mellitus without complication, *02/10/2024 Encounter Status:Closed by TON WILEY on 02/10/24 Normal [facility] [id number] 02-10-2024 ECG01 Ventricular Rate : 5 4 BPM Atrial Rate : 54 BPM P-R Interval : 164 ms QRS Duration : 122 ms Q-T Interval : 446 ms QTC Calculation(Bazett) : 422 ms Calculated P [place] : 55 degrees Calculated R [place] : 55 degrees Calculated T [place] : 32 degrees SINUS BRADYCARDIA WITH SINUS ARRHYTHMIA COMPLETE RIGHT BUNDLE BRANCH BLOCK CANNOT EXCLUDE INFERIOR MYOCARDIAL INFARCTION , AGE UNDETERMINED ABNORMAL ECG Confirmed by MD SOTOMAYOR GREGORY () on 02/13/2024 11:19:08 AM NAME : SUSAN CHANDLER PID : [id number] : 1945 Gender : Female Race : ORD : Procedure Date : Feb 10 2024 09:28:18 Edit Date : Feb 13 2024 11:19:13 Diagnosis: SINUS BRADYCARDIA WITH SINUS ARRHYTHMIA COMPLETE RIGHT BUNDLE BRANCH BLOCK CANNOT EXCLUDE INFERIOR MYOCARDIAL INFARCTION , AGE UNDETERMINED ABNORMAL ECG Confirmed by MD SOTOMAYOR GREGORY () on 02/13/2024 11:19:08 AM Test Reason : Location : [address] [place] [address] Overread By : MD SOTOMAYOR GREGORY Edited By : MD SOTOMAYOR GREGORY Referred By : TATIANA SUTHERLAND Acquired by : Arden riley [facility] HISTORY PHYSICALon HISTORY PHYSICAL HNO ID: [id number] Author: NESTOR RUBY APRN.[employer] Service: ? Author Type: Nurse Practitioner Type: H&P Filed: 02/17/2024 14:55 Note Text: [facility] HISTORY AND PHYSICAL EXAMINATION SERVICE DATE: 02/10/2024 SERVICE TIME: 2:55 PM PRIMARY CARE PHYSICIAN: Terrance Alonso MD, MD Assessment Patient has the following medical conditions which may affect vinod-operative course: Essential (primary) hypertension Assessment: controlled on rx Last 14 BP Last 14 Encounter BP Readings: Date: BP: 02/10/2024 130/72 04/01/2023 122/78 03/27/2023 124/80 11/10/2021 130/78 History of tobacco use Assessment: 1-1.5ppd/60 years COPD (chronic obstructive pulmonary disease) (HCC) Assessment: uses no inhalers, following Dr. Kinney at [facility], records requested 10/25/2023 Dr. Kinney OV, scanned into [facility] Depressive disorder Assessment: and anxiety, stable on rx per pt Mixed hyperlipidemia Assessment: c/w statin RBBB Assessment: per EKG, no previous to compare Abnormal electrocardiogram Assessment: echo and Lexiscan ordered Today's EKG, no previous EKG's to compare to SINUS BRADYCARDIA WITH SINUS ARRHYTHMIA COMPLETE RIGHT BUNDLE BRANCH BLOCK CANNOT EXCLUDE INFERIOR MYOCARDIAL INFARCTION , AGE UNDETERMINED ABNORMAL ECG Class 2 severe obesity due to excess calories with serious comorbidity and body mass index (BMI) of 37.0 to 37.9 in adult ([facility]) Assessment: Body mass index is 37.5 kg/m?. JEANNIE (obstructive sleep apnea) Assessment: c/w CPAP Type 2 diabetes mellitus without complication, without long-term current use of insulin ([facility]) Assessment: controlled on oral agent, new A1c pending Hypoxemia Assessment: uses 2L supplemental oxygen at night with PAP, following pulmonary 10/25/2023 Dr. Kinney Grade I diastolic dysfunction Assessment: EF 59% 02/2024 Normal Lexiscan 02/17/2024 Pulmonary hypertension (HCC) Assessment: RSVP 48mmHg consistent with mild pHTN Brady Activity Status Index: METS: Climb a flight of stairs or walk up a hill (5.50 METs) DASI Score: 5.5 Patient denies any chest pain or undue shortness of breath with the above physical activity. Clinical Frailty Scale: 3. Well, with treated comorbid disease STOP-Bang Score: Snores loudly Has or is being treated for high blood pressure BMI greater than 35 kg/m2 Patient over 50 years old Has a large neck Denies feeling tired, fatigued, or sleepy during the daytime Has not been observed to stop breathing or choking/gasping during sleep Non-male patient STOP-Bang Score: 5 [id number] Score: Age: >=75 Sex: female CHF history: No Hypertension history: Yes Stroke/TIA/thromboembolism history: No Vascular disease history: No Diabetes history: Yes [id number] Score: 5 ARISCAT Score: Age: 51-80 Preoperative SpO2: >=96% Respiratory infection in the last month: No Preoperative anemia: Yes Surgical incision: peripheral Duration of surgery: <2 hrs Emergency procedure: No ARISCAT Score: 14 ANESTHESIA FINDINGS: Intubation History: No history of difficult intubation Significant Anesthesia Considerations: none Airway History: No history of difficult airway I - PHYSICAL EVALUATION AIRWAY Patient intubated: No. Tracheostomy tube not present Mallampati: III. TM distance: >3 FB. Neck ROM: full ROM without neurological symptoms. Mouth opening: adequate. Short neck: yes. Thick neck: yes Crain present: no Lip Bite Test: I Microretrognathia/Micronagt hia/Recessed Chin: No DENTAL Dental findings: teeth intact. II - ANESTHESIA PLAN Anesthetic Plan: other Beta Gerardo Monitoring Plan Post Procedure Analgesic Plan Informed Consent Anesthetic risks, benefits, alternatives, personnel and consent discussed: yes. Patient / Responsible Alliance Party agrees to proceed: yes Patient / Surrogate agrees to blood products: blood products not planned Discussed the possibility of lip / dental damage: yes Prepared for Surgery: optimally prepared for surgery, pending [see comment]. Labs ,EKG, echo Dr. Kinney, pulmonary records requested Echo/lexiscan reviewed-JL CONSULTS: Patient does not require consults for optimization at this time Planned Anesthetic: other anesthesia choice The Following Tests/Procedures Have Been Initiated: Orders Placed This Encounter NM CARDIAC PERF STRESS/PHARM Standing Status: Future Number of Occurrences: 1 Standing Expiration Date: 03/11/2025 Order Specific Question: What stress agent will be used? Answer: Regadenoson >CBC + AUTO DIFF Standing Status: Future Number of Occurrences: 1 Standing Expiration Date: 05/11/2024 >CMP Standing Status: Future Number of Occurrences: 1 Standing Expiration Date: 05/11/2024 >HGB A1c (Today or soon) Standing Status: Future Number of Occurrences: 1 Standing Expiration Date: 05/11/2024 calcium polycarbophil (FIBERCON (more content not included)... Normal [facility] Jerald 02-03-2024 CNPN Telephone (RAMAN) SUSAN CHANDLER ([id number]) 1945 F Date Time Provider Department 02/03/24 TATIANA SUTHERLAND During your visit today, we recorded the following information about you: Ifrah Mg 02/03/2024 10:27 AM Signed Patient is having surgery on 02-20-2024. Please reach out and schedule for physical therapy one week post-op. Patient lives in [place]. Patient would more than like probably want to go out there for therapy. Thank you. Lana Santana 02/03/2024 11:56 AM Signed Called patient and left message. Postop PT scheduled for 02/26 @ 3:30 pm at the [place] location. Sheyla Hinton 02/03/2024 1:26 PM Signed Patient returned call and received the previous message. She voiced understanding and was provided date, time, and location of post op physical therapy appointment. Allergies As of Date: 02/03/2024 Noted Allergy Reaction PENICILLINS 11/10/2021 4 - Hives PERCOCET (OXYCODONE-ACETAMINOPHEN) 9 - Itching VICODIN (HYDROCODONE-ACETAMINOPHE*0 11/10/2021 4 - Hives Date Reviewed: 12/23/2023 Reviewed by: Lona Bender MA - Fully Assessed Reason for Visit: Appointment [[id number]] Cmt: Post-op PT Prescriptions as of 02/03/2024 - FARXIGA 10 mg tablet Take 1 tablet by mouth every afternoon. - valsartan (DIOVAN) 160 mg tablet Take 160 mg by mouth once daily. - meloxicam (MOBIC) 7.5 mg tablet Take 7.5 mg by mouth once daily. - rosuvastatin (CRESTOR) 10 mg tablet Take 10 mg by mouth every evening. - traMADol (ULTRAM) 50 mg tablet Take 50 mg by mouth every 6 hours as needed for pain. - buPROPion SR (WELLBUTRIN SR) 150 mg 12 hr tablet Take 150 mg by mouth every 12 hours. - calcium carbonate (CALTRATE) 600 mg calcium (1,500 mg) tab Take 600 mg by mouth once daily. - benzonatate (TESSALON PERLE) 100 mg capsule Take 2 capsules by mouth three times daily as needed. - albuterol HFA (PROAIR HFA) 90 mcg/actuation inhaler Inhale 2 Puffs as instructed every 4 hours as needed. - albuterol HFA (PROVENTIL HFA, VENTOLIN HFA) 90 mcg/actuation inhaler INHALE 2 (TWO) PUFFS EVERY 4 HOURS NEEDED - atenolol (TENORMIN) 50 mg tablet - escitalopram oxalate (LEXAPRO) 10 mg tablet - diclofenac (VOLTAREN) 1 % topical gel Apply 2 gm to affected area 3 times a day - gabapentin (NEURONTIN) 300 mg capsule Take 300 mg by mouth three times daily. - metFORMIN (GLUCOPHAGE) 500 mg tablet - nabumetone (RELAFEN) 750 mg tablet Take 750 mg by mouth twice daily. TAKE WITH FOOD. - aspirin, enteric coated (ASPIRIN, ENTERIC COATED) 81 mg EC tablet Take 81 mg by mouth once daily. - traZODone (DESYREL) 50 mg tablet TAKE 2 TABLETS BY MOUTH EVERY DAY AT BEDTIME Problem List As Of Date: 02/03/2024 (None) Encounter Status:Closed by LANA MEYER on 02/03/24 [facility] CNOVon 01-20-2024 CNOV Office Visit (ORMDRG ) SUSAN CHANDLER ([id number]) 1945 F Date Time Provider Department 01/20/24 10:00 AM TATIANA SUTHERLAND ORRG During your visit today, we recorded the following information about you: Tatiana Sutherland MD 01/20/2024 12:26 PM Signed ORTHOPAEDIC SHOULDER AND ELBOW SERVICE HISTORY AND PHYSICAL EXAM REFERRING PROVIDER: Orin Venegas [facility] [id number] CHIEF COMPLAINT: right shoulder rotator cuff tear PAIN EVALUATION No data found in the last 1 encounters. Susan Chandler is a 78 year old female presents to clinic with right shoulder pain. She has had pain and loss of range of motion for the last several years. She has had several injections through pain management without significant relief. She has undergone physical therapy. She takes meloxicam, gabapentin and pain patch. Treatments and therapies to-date include: Activity modification/changes to daily activities: Yes Medical management (Tylenol, NSAIDs): Yes Physical therapy within the past 6 months for at least 4 weeks: Yes Corticosteroid Injection: Yes - several PAST MEDICAL HISTORY: No past medical history on file. PAST SURGICAL HISTORY: No past surgical history on file. SOCIAL HISTORY: Social History Tobacco Use Smoking status: Former Types: Cigarettes Smokeless tobacco: Never Vaping Use Vaping Use: Never used Substance Use Topics Alcohol use: Never Drug use: Never ALLERGIES: ALLERGIES Allergen Reactions Penicillins Hives Percocet [Oxycodone* Itching Vicodin [Hydrocodon* Hives MEDICATIONS: Current Outpatient Medications on File Prior to Visit Medication Sig FARXIGA 10 mg tablet Take 1 tablet by mouth every afternoon. valsartan (DIOVAN) 160 mg tablet Take 160 mg by mouth once daily. meloxicam (MOBIC) 7.5 mg tablet Take 7.5 mg by mouth once daily. rosuvastatin (CRESTOR) 10 mg tablet Take 10 mg by mouth every evening. traMADol (ULTRAM) 50 mg tablet Take 50 mg by mouth every 6 hours as needed for pain. buPROPion SR (WELLBUTRIN SR) 150 mg 12 hr tablet Take 150 mg by mouth every 12 hours. calcium carbonate (CALTRATE) 600 mg calcium (1,500 mg) tab Take 600 mg by mouth once daily. benzonatate (TESSALON PERLE) 100 mg capsule Take 2 capsules by mouth three times daily as needed. (Patient not taking: Reported on 12/23/2023) albuterol HFA (PROAIR HFA) 90 mcg/actuation inhaler Inhale 2 Puffs as instructed every 4 hours as needed. (Patient not taking: Reported on 12/23/2023) albuterol HFA (PROVENTIL HFA, VENTOLIN HFA) 90 mcg/actuation inhaler INHALE 2 (TWO) PUFFS EVERY 4 HOURS NEEDED (Patient not taking: Reported on 12/23/2023) atenolol (TENORMIN) 50 mg tablet escitalopram oxalate (LEXAPRO) 10 mg tablet diclofenac (VOLTAREN) 1 % topical gel Apply 2 gm to affected area 3 times a day gabapentin (NEURONTIN) 300 mg capsule Take 300 mg by mouth three times daily. metFORMIN (GLUCOPHAGE) 500 mg tablet (Patient not taking: Reported on 12/23/2023) nabumetone (RELAFEN) 750 mg tablet Take 750 mg by mouth twice daily. TAKE WITH FOOD. (Patient not taking: Reported on 12/23/2023) aspirin, enteric coated (ASPIRIN, ENTERIC COATED) 81 mg EC tablet Take 81 mg by mouth once daily. traZODone (DESYREL) 50 mg tablet TAKE 2 TABLETS BY MOUTH EVERY DAY AT BEDTIME No current facility-administered medications on file prior to visit. PHYSICAL EXAMINATION: There were no vitals taken for this visit. EXAM: Shoulder Musculoskeletal Exam Inspection Right Right shoulder inspection is normal. Palpation Right Tenderness: present Anterior shoulder: mild Range of Motion Right Active ROM: abnormal and pain. Active forward elevation: 90. Passive forward elevation: 90. Shoulder active abduction: 90. Passive abduction: 90. Active external rotation at side: 60. Internal rotation: sacrum. Strength Right External rotation: 4/5. Internal rotation: 4+/5. Abduction: 4-/5. Abduction is affected by pain. Neurovascular Right Right shoulder nerve sensation is normal. Scapula Right Right shoulder scapula is normal. Special Tests Right Rotator Cuff Signs Neer's test: positive Davidson test: positive Supraspinatus: positive Belly press test: negative Painful arc test: positive Lift-off sign: negative Bear hug test: negative Drop arm test: negative Biceps/ирина Signs Bethany's test: positive Charli deformity: negative AC Joint Signs Active horizontal adduction pain: negative Instability Signs Joint laxity: negative IMAGING: I personally reviewed the MRI of the right shoulder in the office today, and I am in agreement with the radiologist's interpretation with the following modifications: Complete supraspinatus tendon tear with retraction MEDICAL DECISION MAKING: (M75.121) Complete tear of right rotator cuff, unspecified whether traumatic (p (more content not included)... Normal [facility] CNOVon 12-23-2023 CNOV Office Visit (ORTHWS ) SUSAN CHANDLER ([id number]) 1945 F Date Time Provider Department 12/23/23 8:30 AM ORIN CASAS During your visit today, we recorded the following information about you: NapoleonLona wallace MA 12/23/2023 9:25 AM Signed AMB ROOMING INTAKE FLOWSHEET DATA Pain Pain Level: 3 Pain Location: Shoulder-Right Description: Aching, Sharp Duration Amount of Time: 2 Duration Units: Years Frequency: Continuous Intervention/Comfort measure: Medication Patient here today with right shoulder pain x 2 years. She denies any injury. She did PT several months ago without any relief. She is right hand dominant. Patient brought outside imaging for appointment today. Orin Casas PA-C 12/23/2023 9:25 AM Signed Orin Casas PA-C Department of Orthopaedics Orthopaedics [address] [facility] [address] Dept: [phone] Dept December 23, 2023 CHIEF COMPLAINT: Pain of the Right Shoulder Ms. Susan Chandler is a 78 year old female who presents with pain in her right shoulder which has been getting progressively worse for about the past 2 years. She denies any injury. Pain today is a 3 out of 10 sharp, aching in the biceps region which radiates up into the neck. She participated in physical therapy without relief. She has been taking tramadol and Tylenol which is not helping. It is unclear whether she is take any type of an oral NSAID to help with shoulder pain. She reports that she has had 2-3 corticosteroid injections with a provider at [facility], injections were not beneficial. Patient is right-hand dominant. She had an MRI at [facility]. ASSESSMENT: M75.121 Complete tear of right rotator cuff, unspecified whether traumatic (primary encounter diagnosis) M19.011 Glenohumeral arthritis, right PLAN: Unfortunately I am unable to open the MRI disc, I do have the MRI report. She has a retracted full-thickness tear of the supraspinatus, tendon is retracted back to the glenoid level. She also ruptured her long biceps tendon, has some glenohumeral and AC joint arthritis. Based on just the report I am not sure that her rotator cuff would be repairable. We discussed getting her into one of our shoulder surgeons to discuss her surgical options- reverse shoulder. Ms. Susan Chandler was advised as to contrast therapies and/or to take analgesics/anti-inflammator ies as needed and all contraindications were reviewed. OBJECTIVE: Ms. Susan Chandler is a pleasant 78 year old in no apparent distress. Gen:There were no vitals taken for this visit. nl development, obese, no deformities ENT: Normocephalic, normal hearing, moist mucosa CV: Pulses:Radial= 2+ and symmetric, capillary refill < 2 secs, no peripheral edema/varicosities Skin: no rash, bruising or lesions. Good turgor. Psych: cooperative and appropriate, alert and oriented x 3, good mood and affect. Musculoskeletal: Supple range of motion of the cervical spine without pain. Spurling signs are negative. No atrophy of the deltoid and shoulder musculature. Right shoulder is nontender to palpation over the SC joint and clavicle. Tenderness over the AC joint. Positive tenderness to palpation over the posterior shoulder, tender over the anterior lateral corner of the shoulder and greater tuberosity. Tender at the bicipital groove and coracoid. Active range of motion is 130 degrees of forward elevation, 35 degrees external rotation, and internal rotation to the lower lumbar spine. Passive range of motion is 145 degrees, 45 degrees, respectively. No laxity with anterior and posterior stress. Positive Neer and positive Davidson impingement signs. 4+/5 strength with supraspinatus, infraspinatus and 5/5 strength testing with subscapularis. 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 Grade 2 muscle fibrofatty infiltration. Microcytic partial interstitial intermediate grade tearing of the infraspinatus. Long head bicep tendon is not well-demonstrated, truncated and frayed superior labrum possible SLAP tear. Supporting Subjective Information Below: Past Surgical History: No past surgical history on file. Medications: Current Outpatient Medications Medication Sig FARXIGA 10 mg tablet Take 1 tablet by mouth every afternoon. valsartan (DIOVAN) 160 mg tablet Take 160 mg by mouth once daily. meloxicam (MOBIC) 7.5 mg tablet Take 7.5 mg by mouth once daily. rosuvastatin (CRESTOR) 10 mg tablet Take 10 mg by mouth every evening. traMADol (ULTRAM) 50 mg tablet Take 50 mg by mouth every 6 hours as needed for pain. buPROPion SR (WELLBUTRIN SR) 150 mg 12 hr tablet Take 150 mg by mouth every 12 hours. calcium carbonate (CALTRATE) (more content not included)... Normal [facility] No Panel InformationOrdered By: Terrance Alonso on 11-21-2023 Thyroglobulin Antibody < 1.0 IU/mL 0.0-0.9 [facility] Comment on above: Thyroglobulin Antibo dy measured by MicreosMethodologyIt should be noted that the presence of thyroglobulinantibodies may not be pathogenic nor diagnostic, especiallyat very low levels. The assay emergency room doctor has found thatfour percent of individuals without evidence of thyroiddisease or autoimmunity will have positive TgAb levels upto 4 IU/mL.Performed at: [employer] [id number] Director: Stephan Mackenzie PhD, Phone: [phone] Serum or plasma thyroperoxid ase antibody assay (units/volume)Ordered By: Terrance Alonso on 11-21-2023 TPO Ab Qn 11 [IU]/mL 0-34 [facility] Thin prep Papanicolaou smear with manual screeningOrdered By: Terrance Alonso on 11-21-2023 Thin prep Papanicolaou smear with manual screening 1.16 ng/dL 0.76-1.46 [facility] Absolute lymphocyte countOrd ered By: Terrance Alonso on 11-18-2023 Lymphocytes Auto (Unsp spec) [#/Vol] 1.46 10*3/uL 0.83-4.51 [facility] Automated lymphocyte count a s percentage of total leukocytesOrdered By: Terrance Alonso on 11-18-2023 Lymphocytes/100 WBC Auto (Unsp spec) 20.9 % 19-41 [facility] Basophil percentageOrdered B y: Terrance Alonso on 11-18-2023 Basophil percentage 0 SEEN /hpf 0-5 [facility] Basophils/100 WBC (Bld) 0.9 % 0-1 [facility] Bilirubin [Mass/Vol] 0.40 mg/dL 0.20-1.00 [facility] Comment on above: For patients on eltr ombopag therapy, use of [employer] [place] TBIL is not recommended. Chloride [Moles/Vol] 108 mmol/L 98-107 [facility] Cholesterol [Mass/Vol] 139 mg/dL <200 [facility] Comment on above: <200 mg/dL Desirable 200-240 mg/dL Borderline >240 mg/dL High Risk Eosinophils/100 WBC (Bld) 2.7 % 0-5 [facility] Glucose [Mass/Vol] 182 mg/dL 74-106 [facility] Comment on above: Fasting Glucose resu lt greater than or equal to 126 mg/dL suggests DIABETES MELLITUS per A.D.A. criteria. Hemoglobin (Bld) [Mass/Vol] 14.6 g/dL 12.0-15.0 [facility] Monocytes/100 WBC (Bld) 8.6 % 0-10 [facility] Neutrophils (Bld) [#/Vol] 4.6 10*3/uL 2.0-7.7 [facility] Neutrophils/100 WBC (Bld) 66.0 % 47-70 [facility] Potassium [Moles/Vol] 4.3 mmol/L 3.5-5.1 [facility] Protein [Mass/Vol] 7.1 g/dL 6.4-8.2 [facility] Sodium [Moles/Vol] 140 mmol/L 136-145 [facility] Triglyceride [Mass/Vol] 107 mg/dL <199 [facility] Comment on above: The drugs N-Acetylcy steine and Metamizole may falsely depress this assay.Serum Triglycerides Reference Interval Normal <150 mg/dL Borderline high 150 - 199 mg/dL High 200 - 499 mg/dL Very High > or = 500 mg/dL WBC (Bld) [#/Vol] 7.0 10*3/uL 4.4-11.0 [facility] Bilirubin Test strip Ql (U)O rdered By: Terrance Alonso on 11-18-2023 Bilirubin Ql (U) Negative Negative [facility] Determination of erythrocyte mean corpuscular volume (MCV)Ordered By: Terrance Alonso on 11-18-2023 MCV (RBC) [Entitic vol] 91.2 fL 81-99 [facility] Erythrocyte distribution wid th ratioOrdered By: Terrance Alonso on 11-18-2023 Erythrocyte distribution width (RBC) [Ratio] 12.5 % 11.6-14.6 [facility] Erythrocyte distribution wid th standard deviationOrdered By: Terrance Alonso on 11-18-2023 Erythrocyte distribution width (RBC) [Entitic vol] 41.4 fL 35.1-43.9 [facility] Hematocrit Auto (Bld) [Volum e fraction]Ordered By: Terrance Alonso on 11-18-2023 Hematocrit (Bld) [Volume fraction] 45.5 % 37-47 [facility] Immature granulocytes/100 WB C Auto (Bld)Ordered By: Terrance Alonso on 11-18-2023 Immature granulocytes/100 WBC (Bld) 0.900 % 0.0-0.9 [facility] Comment on above: IG% - Immature Granu locytes (promyelocytes, myelocytes and metamyelocytes) > 1% indicates that a LEFT SHIFT is Present. Ketones Test strip Ql (U)Ord ered By: Terrance Alonso on 11-18-2023 Ketones Ql (U) Negative Negative [facility] Laboratory - Chemistry and C hemistry - challengeOrdered By: Terrance Alonso on 11-18-2023 Albumin/Globulin [Mass ratio] 1.0 {ratio} 0.9-2.4 [facility] ALP [Catalytic activity/Vol] 58 U/L 45-117 [facility] ALT [Catalytic activity/Vol] 23 U/L 13-56 [facility] Cholesterol in HDL [Mass/Vol] 78 mg/dL >40 [facility] Comment on above: The drugs N-Acetylcy steine and Metamizole may falsely depress this assay. Reference Range HDL <40 mg/dL Low HDL Cholesterol HDL >or= 60 mg/dL High HDL Cholesterol Cholesterol in LDL [Mass/Vol] 40 mg/dL 0-130 [facility] CO2 [Moles/Vol] 27.0 mmol/L 21.0-32.0 [facility] Globulin (S) [Mass/Vol] 3.6 g/dL 2.2-4.2 [facility] Urea nitrogen/Creatinine [Mass ratio] 22.2 mg/mg 10-20 [facility] - Hematology and Cell countsOrdered By: Terrance Alonso on 11-18-2023 MCH (RBC) [Entitic mass] 29.3 pg 27.0-32.0 [facility] MCHC (RBC) [Mass/Vol] 32.1 g/dL 32-36 [facility] Nucleated RBC/100 WBC (Bld) [Ratio] 0 % 0-5 [facility] Platelet mean volume (Bld) [Entitic vol] 10.1 fL 6.2-12.0 [facility] Platelets (Bld) [#/Vol] 199 10*3/uL 150-450 [facility] Mucus LM Ql (Urine sed)Order ed By: Terrance Alonso on 11-18-2023 Mucus Ql (Urine sed) 0 SEEN /hpf [facility] Nitrite Test strip Ql (U)Ord ered By: Terrance Alonso on 11-18-2023 Nitrite Ql (U) Negative Negative [facility] No Panel InformationOrdered By: Terrance Alonso on 11-18-2023 Urine RBC 0-5 SEEN /hpf 0-5 [facility] Estimated GFR (MDRD) Amer 78 mL/min >60 [facility] Comment on above: GFR Calc Estimated GFR (MDRD) Non-Af Amer 64 mL/min >60 [facility] Comment on above: Non- GFR Calc Urine Microalbumin/Creatinin e Ratio 28.1 mg/g CRE <30 [facility] Vitamin D 25-Hydroxy 46.1 ng/mL [facility] Comment on above: Vitamin D 25(OH) Sta tus Range Deficiency <20 ng/mL (50nmol/L) Insufficiency 20 - 30 ng/mL (50 - 75 nmol/L) Sufficiency 30 - 100 ng/mL (75 - 250 nmol/L) Toxicity >100 ng/mL (>250 nmol/L) VLDL Cholesterol 21 mg/dL 5-40 [facility] Protein Test strip Ql (U)Ord ered By: Terrance Alonso on 11-18-2023 Protein Ql (U) Negative Negative [facility] RBC Auto (Bld) [#/Vol]Ordere d By: Terrance Alonso on 11-18-2023 RBC (Bld) [#/Vol] 4.99 10*6/uL 4.2-5.4 [facility] Serum or plasma calcium giovanni urement (mass/volume)Ordered By: Terrance Alonso on 11-18-2023 Calcium [Mass/Vol] 9.4 mg/dL 8.5-10.1 [facility] Serum or plasma creatinine m easurement (mass/volume)Ordered By: Terrance Alonso on 11-18-2023 Creatinine [Mass/Vol] 0.90 mg/dL 0.55-1.02 [facility] Comment on above: The validity of the calculated GFR & GFRAA in patients over 70 years has not been determined. Clinical correlation is essential. Serum or plasma thyroid stim ulating hormone (TSH) measurement (units/volume)Ordered By: Terrance Alonso on 11-18-2023 TSH Qn 4.05 uIU/mL 0.358-3.74 [facility] Serum or plasma urea nitroge n measurement (mass/volume)Ordered By: Terrance Alonso on 11-18-2023 Urea nitrogen [Mass/Vol] 20 mg/dL 7-18 [facility] Squamous epithelial cells de tection in urine sediment by light microscopyOrdered By: Terrance Alonso on 11-18-2023 Epithelial cells.squamous LM Ql (Urine sed) 0-5 SEEN /hpf 5-10 [facility] Thin prep Papanicolaou smear with manual screeningOrdered By: Terrance Alonso on 11-18-2023 Thin prep Papanicolaou smear with manual screening 3.5 g/dL 3.2-5.0 [facility] Thin prep Papanicolaou smear with manual screening 21 U/L 15-37 [facility] Thin prep Papanicolaou smear with manual screening 5 5-15 [facility] Thin prep Papanicolaou smear with manual screening 13.2 mg/L NO RANGE EST. [facility] Urine blood detectionOrdered By: Terrance Alonso on 11-18-2023 RBC Ql (U) 10 /ul Negative [facility] Urine clarityOrdered By: Rodríguez Alonso on 11-18-2023 Clarity (U) Sl. Cloudy Clear [facility] Urine color determinationOrd ered By: Terrance Alonso on 11-18-2023 Color (U) Yellow Yellow [facility] Urine creatinine measurement (mass/volume)Ordered By: Terrance Alonso on 11-18-2023 Creatinine (U) [Mass/Vol] 47.00 mg/dL NO RANGE EST. [facility] Urine glucose detectionOrder ed By: Terrance Alonso on 11-18-2023 Glucose Ql (U) 1000 mg/dl Normal [facility] Urine leukocyte esterase det ection by dipstickOrdered By: Terrance Alonso on 11-18-2023 Leukocyte esterase Test strip Ql (U) Negative Negative [facility] Urine pHOrdered By: Terrance pate on 11-18-2023 pH (U) 5.0 [pH] 5.0 - 8.0 [facility] Urine sediment bacteria coun t by microscopy (number/high power field)Ordered By: Terrance Alonso on 11-18-2023 Bacteria LM.HPF (Urine sed) [#/Area] 0 /[HPF] None Seen [facility] Urine specific gravity measu rementOrdered By: Terrance Alonso on 11-18-2023 Specific gravity (U) [Rel density] 1.015 1.002-1.[address] [facility] Urine urobilinogen measureme ntOrdered By: Terrance Alonso on 11-18-2023 Urobilinogen Ql (U) Normal mg/dl Normal [facility] Whole blood hemoglobin A1c/t otal hemoglobin ratio (mass fraction)Ordered By: Terrance Alonso on 11-18-2023 HbA1c (Bld) [Mass fraction] 7.7 % 3.8-5.6 [facility] Comment on above: Normal < 5.7 % Predi abetic 5.7 - 6.4 % Diabetic >or= 6.5 % Please note range changes. Absolute lymphocyte countOrd ered By: Terrance Alonso on 08-16-2023 Lymphocytes Auto (Unsp spec) [#/Vol] 1.87 10*3/uL 0.83-4.51 [facility] Basophil percentageOrdered B y: Terrance Alonso on 08-16-2023 Basophils/100 WBC (Bld) 0.7 % 0-1 [facility] Bilirubin [Mass/Vol] 0.40 mg/dL 0.20-1.00 [facility] Comment on above: For patients on eltr ombopag therapy, use of [place] TBIL is not recommended. Chloride [Moles/Vol] 107 mmol/L 98-107 [facility] Cholesterol [Mass/Vol] 184 mg/dL <200 [facility] Comment on above: <200 mg/dL Desirable 200-240 mg/dL Borderline >240 mg/dL High Risk Eosinophils/100 WBC (Bld) 1.8 % 0-5 [facility] Glucose [Mass/Vol] 202 mg/dL 74-106 [facility] Comment on above: Glucose result great er than or equal to 200 mg/dLsuggests DIABETES MELLITUS per A.D.A. criteria. Neutrophils (Bld) [#/Vol] 5.8 10*3/uL 2.0-7.7 [facility] Neutrophils/100 WBC (Bld) 66.8 % 47-70 [facility] Potassium [Moles/Vol] 4.3 mmol/L 3.5-5.1 [facility] Protein [Mass/Vol] 6.8 g/dL 6.4-8.2 [facility] Sodium [Moles/Vol] 138 mmol/L 136-145 [facility] Triglyceride [Mass/Vol] 71 mg/dL <199 [facility] Comment on above: The drugs N-Acetylcy steine and Metamizole may falsely depress this assay.Serum Triglycerides Reference Interval Normal <150 mg/dL Borderline high 150 - 199 mg/dL High 200 - 499 mg/dL Very High > or = 500 mg/dL WBC (Bld) [#/Vol] 8.7 10*3/uL 4.4-11.0 [facility] Blood erythrocytes count (nu mber/volume)Ordered By: Terrance Alonso on 08-16-2023 RBC (Bld) [#/Vol] 4.99 10*6/uL 4.2-5.4 [facility] Blood hemoglobin measurement (mass/volume)Ordered By: Terrance Alonso on 08-16-2023 Hemoglobin (Bld) [Mass/Vol] 14.6 g/dL 12.0-15.0 [facility] Blood lymphocytes/100 leukoc ytesOrdered By: Terrance Alonso on 08-16-2023 Lymphocytes/100 WBC (Bld) 21.4 % 19-41 [facility] Blood monocytes/100 leukocyt esOrdered By: Terrance Alonso on 08-16-2023 Monocytes/100 WBC (Bld) 8.5 % 0-10 [facility] Blood platelet mean volumeOr dered By: Terrance Alonso on 08-16-2023 Platelet mean volume (Bld) [Entitic vol] 10.0 fL 6.2-12.0 [facility] Determination of erythrocyte mean corpuscular volume (MCV)Ordered By: Terrance Alonso on 08-16-2023 MCV (RBC) [Entitic vol] 90.8 fL 81-99 [facility] Hematocrit Auto (Bld) [Volum e fraction]Ordered By: Terrance Alonso on 08-16-2023 Hematocrit (Bld) [Volume fraction] 45.3 % 37-47 [facility] Laboratory - Chemistry and C hemistry - challengeOrdered By: Terrance Alonso on 08-16-2023 ALP [Catalytic activity/Vol] 63 U/L 45-117 [facility] ALT [Catalytic activity/Vol] 28 U/L 13-56 [facility] CO2 [Moles/Vol] 28.0 mmol/L 21.0-32.0 [facility] Globulin (S) [Mass/Vol] 3.6 g/dL 2.2-4.2 [facility] Urea nitrogen/Creatinine [Mass ratio] 27.9 mg/mg 10-20 [facility] Laboratory - Hematology and Cell countsOrdered By: Terrance Alonso on 08-16-2023 Erythrocyte distribution width (RBC) [Entitic vol] 41.0 fL 35.1-43.9 [facility] Erythrocyte distribution width (RBC) [Ratio] 12.3 % 11.6-14.6 [facility] Immature granulocytes/100 WBC (Bld) 0.800 % 0.0-0.9 [facility] Comment on above: IG% - Immature Granu locytes (promyelocytes, myelocytes and metamyelocytes) > 1% indicates that a LEFT SHIFT is Present. MCH (RBC) [Entitic mass] 29.3 pg 27.0-32.0 [facility] Nucleated RBC/100 WBC (Bld) [Ratio] 0 % 0-5 [facility] MCHC Auto (RBC) [Mass/Vol]Or dered By: Terrance Alosno on 08-16-2023 MCHC (RBC) [Mass/Vol] 32.2 g/dL 32-36 [facility] No Panel InformationOrdered By: Terrance Alonso on 08-16-2023 Estimated GFR (MDRD) Amer 72 mL/min >60 [facility] Comment on above: GFR Calc Estimated GFR (MDRD) Non-Af Amer 59 mL/min >60 [facility] Comment on above: Non- GFR Calc Urine Microalbumin/Creatinin e Ratio 36.3 mg/g CRE <30 [facility] Vitamin D 25-Hydroxy 54.7 ng/mL [facility] Comment on above: Vitamin D 25(OH) Sta tus Range Deficiency <20 ng/mL (50nmol/L) Insufficiency 20 - 30 ng/mL (50 - 75 nmol/L) Sufficiency 30 - 100 ng/mL (75 - 250 nmol/L) Toxicity >100 ng/mL (>250 nmol/L) Platelets bldOrdered By: Rodríguez Alonso on 08-16-2023 Platelets (Bld) [#/Vol] 186 10*3/uL 150-450 [facility] Serum or plasma albumin giovanni urement (mass/volume)Ordered By: Terrance Alonso on 08-16-2023 Albumin [Mass/Vol] 3.2 g/dL 3.2-5.0 [facility] Serum or plasma albumin/glob ulin mass ratioOrdered By: Terrance Alonso on 08-16-2023 Albumin/Globulin [Mass ratio] 0.9 {ratio} 0.9-2.4 [facility] Serum or plasma calcium giovanni urement (mass/volume)Ordered By: Terrance Alonso on 08-16-2023 Calcium [Mass/Vol] 9.7 mg/dL 8.5-10.1 [facility] Serum or plasma cholesterol in HDL measurement (mass/volume)Ordered By: Terrance Alonso on 08-16-2023 Cholesterol in HDL [Mass/Vol] 106 mg/dL >40 [facility] Comment on above: The drugs N-Acetylcy steine and Metamizole may falsely depress this assay. Reference Range HDL <40 mg/dL Low HDL Cholesterol HDL >or= 60 mg/dL High HDL Cholesterol Serum or plasma cholesterol in VLDL measurement (mass/volume)Ordered By: Terrance Alonso on 08-16-2023 Cholesterol in VLDL [Mass/Vol] 14 mg/dL 5-40 [facility] Serum or plasma creatinine m easurement (mass/volume)Ordered By: Terrance Alonso on 08-16-2023 Creatinine [Mass/Vol] 0.97 mg/dL 0.55-1.02 [facility] Comment on above: The validity of the calculated GFR & GFRAA in patients over 70 years has not been determined. Clinical correlation is essential. Serum or plasma low density lipoprotein (LDL) cholesterol measurement (mass/volume)Ordered By: Terrance Alonso on 08-16-2023 Cholesterol in LDL [Mass/Vol] 64 mg/dL 0-130 [facility] Serum or plasma urea nitroge n measurement (mass/volume)Ordered By: Terrance Alonso on 08-16-2023 Urea nitrogen [Mass/Vol] 27 mg/dL 7-18 [facility] Thin prep Papanicolaou smear with manual screeningOrdered By: Terrance Alonso on 08-16-2023 Thin prep Papanicolaou smear with manual screening 21 U/L 15-37 [facility] Thin prep Papanicolaou smear with manual screening 3 5-15 [facility] Thin prep Papanicolaou smear with manual screening 57.4 mg/L NO RANGE EST. [facility] Urine creatinine measurement (mass/volume)Ordered By: Terrance Alonso on 08-16-2023 Creatinine (U) [Mass/Vol] 158.00 mg/dL NO RANGE EST. [facility] Whole blood hemoglobin A1c/t otal hemoglobin ratio (mass fraction)Ordered By: Terrance Alonso on 08-16-2023 HbA1c (Bld) [Mass fraction] 8.7 % 3.8-5.6 [facility] Comment on above: Normal < 5.7 % Predi abetic 5.7 - 6.4 % Diabetic >or= 6.5 % Please note range changes. Gram stain for investigation of transfusion reactionOrdered By: Zaki Kinney on 04-05-2023 Microscopic observation Gram stain Nom (Unsp spec) [facility] Microbial respiratory cultur eOrdered By: Zaki Kinney on 04-05-2023 Bacteria identified Respiratory culture Nom (Unsp spec) or Staphylococcus aureus isolated. [facility] XR CHEST 2V FRONTAL/LATon [facility] XR Chest PA and Lateralon IMPRESSION: No definite acute radiographic abnormality. [employer] Crm Developer: [email or web address] Transcribe Date/Time: Apr 01 2023 2:08P Dictated by : SHERON BRUNSON MD This examination was interpreted and the report reviewed and electronically signed by: SHERON BRUNSON MD on Apr 01 2023 2:09PM [facility] DIVISION OF RADIOLOGY * * *Final Report* * * DATE OF EXAM: Apr 01 2023 2:06PM WOX [id number] - XR CHEST 2V FRONTAL/LAT / PROCEDURE REASON: multiple diagnoses * * * * Physician Interpretation * * * * EXAMINATION: CHEST RADIOGRAPH (2 VIEW FRONTAL & LATERAL) CLINICAL HISTORY: Acute cough Wheeze MQ: XC2_6 EXAM DATE/TIME: 04/01/2023 2:06 PM COMPARISON: No relevant prior studies available. RESULT: Lines, tubes, and devices: None. Lungs and pleura: Probably mild atelectasis in the lingula. No consolidation. No lung mass. No pleural effusion. No pneumothorax. Cardiomediastinal silhouette: Normal cardiomediastinal silhouette. Bones and soft tissues: There is a spinal cord stimulator in place with leads extending superiorly to the mid thoracic level. The spine shows degenerative changes. DIVISION OF RADIOLOGY Provider, [facility] - 04/01/2023 * * *Final Report* * * DATE OF EXAM: Apr 01 2023 2:06PM WOX [id number] - XR CHEST 2V FRONTAL/LAT / PROCEDURE REASON: multiple diagnoses * * * * Physician Interpretation * * * * EXAMINATION: CHEST RADIOGRAPH (2 VIEW FRONTAL & LATERAL) CLINICAL HISTORY: Acute cough Wheeze MQ: XC2_6 EXAM DATE/TIME: 04/01/2023 2:06 PM COMPARISON: No relevant prior studies available. RESULT: Lines, tubes, and devices: None. Lungs and pleura: Probably mild atelectasis in the lingula. No consolidation. No lung mass. No pleural effusion. No pneumothorax. Cardiomediastinal silhouette: Normal cardiomediastinal silhouette. Bones and soft tissues: There is a spinal cord stimulator in place with leads extending superiorly to the mid thoracic level. The spine shows degenerative changes. IMPRESSION IMPRESSION: No definite acute radiographic abnormality. [employer] Developer: [email or web address] Transcribe Date/Time: Apr 01 2023 2:08P Dictated by : SHERON BRUNSON MD This examination was interpreted and the report reviewed and electronically signed by: SHERON BRUNSON MD on Apr 01 2023 2:09PM EST [facility] Radiology Study observation (narrative) [facility] XR Chest PA and LateralOrder ed By: Ccf Provider on 04-01-2023 [facility] Absolute lymphocyte countOrd ered By: Terrance Alonso on 03-01-2023 Lymphocytes Auto (Unsp spec) [#/Vol] 1.95 10*3/uL 0.83-4.51 [facility] Basophil percentageOrdered B y: Terrance Alonso on 03-01-2023 Basophils/100 WBC (Bld) 0.8 % 0-1 [facility] Bilirubin [Mass/Vol] 0.40 mg/dL 0.20-1.00 [facility] Comment on above: For patients on eltr ombopag therapy, use of [employer] [place] TBIL is not recommended. Chloride [Moles/Vol] 113 mmol/L 98-107 [facility] Cholesterol [Mass/Vol] 146 mg/dL <200 [facility] Comment on above: <200 mg/dL Desirable 200-240 mg/dL Borderline >240 mg/dL High Risk Eosinophils/100 WBC (Bld) 3.4 % 0-5 [facility] Glucose [Mass/Vol] 124 mg/dL 74-106 [facility] Comment on above: Fasting Glucose resu lt from 100 to 125 mg/dL suggests IMPAIRED HOMEOSTASIS per A.D.A. criteria. Neutrophils (Bld) [#/Vol] 3.6 10*3/uL 2.0-7.7 [facility] Neutrophils/100 WBC (Bld) 56.1 % 47-70 [facility] Potassium [Moles/Vol] 4.4 mmol/L 3.5-5.1 [facility] Protein [Mass/Vol] 6.8 g/dL 6.4-8.2 [facility] Sodium [Moles/Vol] 142 mmol/L 136-145 [facility] Triglyceride [Mass/Vol] 85 mg/dL <199 [facility] Comment on above: The drugs N-Acetylcy steine and Metamizole may falsely depress this assay.Serum Triglycerides Reference Interval Normal <150 mg/dL Borderline high 150 - 199 mg/dL High 200 - 499 mg/dL Very High > or = 500 mg/dL WBC (Bld) [#/Vol] 6.4 10*3/uL 4.4-11.0 [facility] Blood erythrocytes count (nu mber/volume)Ordered By: Terrance Alonso on 03-01-2023 RBC (Bld) [#/Vol] 4.65 10*6/uL 4.2-5.4 [facility] Blood hemoglobin measurement (mass/volume)Ordered By: Terrance Alonso on 03-01-2023 Hemoglobin (Bld) [Mass/Vol] 14.8 g/dL 12.0-15.0 [facility] Blood lymphocytes/100 leukoc ytesOrdered By: Terrance Alonso on 03-01-2023 Lymphocytes/100 WBC (Bld) 30.6 % 19-41 [facility] Blood monocytes/100 leukocyt esOrdered By: Terrance Alonso on 03-01-2023 Monocytes/100 WBC (Bld) 8.6 % 0-10 [facility] Blood platelet mean volumeOr dered By: Terrance Alonso on 03-01-2023 Platelet mean volume (Bld) [Entitic vol] 10.2 fL 6.2-12.0 [facility] Determination of erythrocyte mean corpuscular volume (MCV)Ordered By: Terrance Alonso on 03-01-2023 MCV (RBC) [Entitic vol] 97.2 fL 81-99 [facility] Hematocrit Auto (Bld) [Volum e fraction]Ordered By: Terrance Alonso on 03-01-2023 Hematocrit (Bld) [Volume fraction] 45.2 % 37-47 [facility] Laboratory - Chemistry and C hemistry - challengeOrdered By: Terrance Alonso on 03-01-2023 ALP [Catalytic activity/Vol] 84 U/L 45-117 [facility] ALT [Catalytic activity/Vol] 20 U/L 13-56 [facility] CO2 [Moles/Vol] 25.0 mmol/L 21.0-32.0 [facility] Globulin (S) [Mass/Vol] 3.7 g/dL 2.2-4.2 [facility] Magnesium [Mass/Vol] 2.2 mg/dL 1.6-2.6 [facility] Urea nitrogen/Creatinine [Mass ratio] 26.2 mg/mg 10-20 [facility] Laboratory - Hematology and Cell countsOrdered By: Terrance Alonso on 03-01-2023 Erythrocyte distribution width (RBC) [Entitic vol] 48.4 fL 35.1-43.9 [facility] Erythrocyte distribution width (RBC) [Ratio] 13.4 % 11.6-14.6 [facility] Immature granulocytes/100 WBC (Bld) 0.500 % 0.0-0.9 [facility] Comment on above: IG% - Immature Granu locytes (promyelocytes, myelocytes and metamyelocytes) > 1% indicates that a LEFT SHIFT is Present. MCH (RBC) [Entitic mass] 31.8 pg 27.0-32.0 [facility] Nucleated RBC/100 WBC (Bld) [Ratio] 0 % 0-5 [facility] MCHC Auto (RBC) [Mass/Vol]Or dered By: Terrance Alonso on 03-01-2023 MCHC (RBC) [Mass/Vol] 32.7 g/dL 32-36 [facility] No Panel InformationOrdered By: Terrance Alonso on 03-01-2023 Estimated GFR (MDRD) Amer 100 mL/min >60 [facility] Comment on above: GFR Calc Estimated GFR (MDRD) Non-Af Amer 83 mL/min >60 [facility] Comment on above: Non- GFR Calc Urine Microalbumin/Creatinin e Ratio 16.7 mg/g CRE <30 [facility] Vitamin D 25-Hydroxy 90.0 ng/mL [facility] Comment on above: Vitamin D 25(OH) Sta tus Range Deficiency <20 ng/mL (50nmol/L) Insufficiency 20 - 30 ng/mL (50 - 75 nmol/L) Sufficiency 30 - 100 ng/mL (75 - 250 nmol/L) Toxicity >100 ng/mL (>250 nmol/L) Platelets bldOrdered By: Rodríguez Alonso on 03-01-2023 Platelets (Bld) [#/Vol] 174 10*3/uL 150-450 [facility] Serum or plasma albumin giovanni urement (mass/volume)Ordered By: Terrance Alonso on 03-01-2023 Albumin [Mass/Vol] 3.1 g/dL 3.2-5.0 [facility] Serum or plasma albumin/glob ulin mass ratioOrdered By: Terrance Alonso on 03-01-2023 Albumin/Globulin [Mass ratio] 0.8 {ratio} 0.9-2.4 [facility] Serum or plasma calcium giovanni urement (mass/volume)Ordered By: Terrance Alonso on 03-01-2023 Calcium [Mass/Vol] 9.8 mg/dL 8.5-10.1 [facility] Serum or plasma cholesterol in HDL measurement (mass/volume)Ordered By: Terrance Alonso on 03-01-2023 Cholesterol in HDL [Mass/Vol] 72 mg/dL >40 [facility] Comment on above: The drugs N-Acetylcy steine and Metamizole may falsely depress this assay. Reference Range HDL <40 mg/dL Low HDL Cholesterol HDL >or= 60 mg/dL High HDL Cholesterol Serum or plasma cholesterol in VLDL measurement (mass/volume)Ordered By: Terrance Alonso on 03-01-2023 Cholesterol in VLDL [Mass/Vol] 17 mg/dL 5-40 [facility] Serum or plasma creatinine m easurement (mass/volume)Ordered By: Terrance Alonso on 03-01-2023 Creatinine [Mass/Vol] 0.73 mg/dL 0.55-1.02 [facility] Comment on above: The validity of the calculated GFR & GFRAA in patients over 70 years has not been determined. Clinical correlation is essential. Serum or plasma low density lipoprotein (LDL) cholesterol measurement (mass/volume)Ordered By: Terrance Alonso on 03-01-2023 Cholesterol in LDL [Mass/Vol] 57 mg/dL 0-130 [facility] Serum or plasma urea nitroge n measurement (mass/volume)Ordered By: Terrance Alonso on 03-01-2023 Urea nitrogen [Mass/Vol] 19 mg/dL 7-18 [facility] Thin prep Papanicolaou smear with manual screeningOrdered By: Terrance Alonso on 03-01-2023 Thin prep Papanicolaou smear with manual screening 18 U/L 15-37 [facility] Thin prep Papanicolaou smear with manual screening 4 5-15 [facility] Thin prep Papanicolaou smear with manual screening 12.5 mg/L NO RANGE EST. [facility] Urine creatinine measurement (mass/volume)Ordered By: Terrance Alonso on 03-01-2023 Creatinine (U) [Mass/Vol] 74.90 mg/dL NO RANGE EST. [facility] Whole blood hemoglobin A1c/t otal hemoglobin ratio (mass fraction)Ordered By: Terrance Alonso on 03-01-2023 HbA1c (Bld) [Mass fraction] 6.0 % 3.8-5.6 [facility] Comment on above: Normal < 5.7 % Predi abetic 5.7 - 6.4 % Diabetic >or= 6.5 % Please note range changes. .Auto Diffon 01-12-2023 Basophil, Absolute 0.0 10 3/mcL Normal 0.0-0.2 [facility] ([place]) Comment on above: Performed By: #### C BC, ADIFF, ANEU, BMP, GFR #### [address] [address] Basophils/100 WBC (Bld) 0.1 % Normal 0.0-2.5 [facility] ([place]) Comment on above: Performed By: #### C BC, ADIFF, ANEU, BMP, GFR #### [address] [address] Eosinophil, Absolute 0.0 10 3/mcL Normal 0.0-0.4 [facility] ([place]) Comment on above: Performed By: #### C BC, ADIFF, ANEU, BMP, GFR #### [address] [address] Eosinophils/100 WBC (Bld) 0.0 % Normal 0.0-7.0 [facility] ([place]) Comment on above: Performed By: #### C BC, ADIFF, ANEU, BMP, GFR #### [address] [address] Lymphocyte, Absolute 1.1 10 3/mcL Normal 0.8-3.9 [facility] ([place]) Comment on above: Performed By: #### C BC, ADIFF, ANEU, BMP, GFR #### [address] [address] Lymphocytes/100 WBC (Bld) 6.4 % Low 10.0-50.0 [facility] ([place]) Comment on above: Performed By: #### C BC, ADIFF, ANEU, BMP, GFR #### [address] [address] Monocyte, Absolute 1.2 10 3/mcL High 0.2-1.0 [facility] ([place]) Comment on above: Performed By: #### C BC, ADIFF, ANEU, BMP, GFR #### [address] [address] Monocytes/100 WBC (Bld) 7.4 % Normal 1.7-13.0 [facility] ([place]) Comment on above: Performed By: #### C BC, ADIFF, ANEU, BMP, GFR #### [address] [address] Neutrophils/100 WBC (Bld) 86.1 % High 37.0-80.0 [facility] ([place]) Comment on above: Performed By: #### C BC, ADIFF, ANEU, BMP, GFR #### [address] [address] .GFRon 01-12-2023 GFR Non- 69 ml/min/1.73sqm Normal [facility] ([place]) Comment on above: Result Comment: GFR Population mean for , Non- Americans Ages 20-29 = 116 mL/min/1.73 sq.m. Ages 30-39 = 107 mL/min/1.73 sq.m. Ages 40-49 = 99 mL/min/1.73 sq.m. Ages 50-59 = 93 mL/min/1.73 sq.m. Ages 60-69 = 85 mL/min/1.73 sq.m. Ages 70+ = 75 mL/min/1.73 sq.m. Chronic Kidney Disease: Less than 60 mL/min/1.73 square meters End Stage Renal Disease: Less than 15 mL/min/1.73 square meters Performed By: #### C BC, ADIFF, ANEU, BMP, GFR #### [address] [address] GFR 84 ml/min/1.73sqm Normal [facility] ([place]) Comment on above: Result Comment: GFR Population mean for , Non- Americans Ages 20-29 = 116 mL/min/1.73 sq.m. Ages 30-39 = 107 mL/min/1.73 sq.m. Ages 40-49 = 99 mL/min/1.73 sq.m. Ages 50-59 = 93 mL/min/1.73 sq.m. Ages 60-69 = 85 mL/min/1.73 sq.m. Ages 70+ = 75 mL/min/1.73 sq.m. Chronic Kidney Disease: Less than 60 mL/min/1.73 square meters End Stage Renal Disease: Less than 15 mL/min/1.73 square meters Performed By: #### C BC, ADIFF, ANEU, BMP, GFR #### [address] [address] .NEUABSon 01-12-2023 Neutrophil, Absolute 14.3 10 3/mcL High 2.9-6.2 [facility] ([place]) Comment on above: Performed By: #### C BC, ADIFF, ANEU, BMP, GFR #### [address] [address] BMPon 01-12-2023 BUN/Creatinine Ratio 25 ratio Normal 7-27 [facility] ([place]) Comment on above: Performed By: #### C BC, ADIFF, ANEU, BMP, GFR #### [address] [address] Calcium [Mass/Vol] 8.9 mg/dL Normal 8.4-10.2 [facility] ([place]) Comment on above: Performed By: #### C BC, ADIFF, ANEU, BMP, GFR #### [address] [address] Chloride [Moles/Vol] 107 mmol/L Normal 98-107 [facility] ([place] Comment on above: Performed By: #### C BC, ADIFF, ANEU, BMP, GFR #### [address] [address] CO2 [Moles/Vol] 32 mmol/L High 23-31 [facility] ([place]) Comment on above: Performed By: #### C BC, ADIFF, ANEU, BMP, GFR #### [address] [address] Creatinine [Mass/Vol] 0.81 mg/dL Normal 0.55-1.02 [facility] ([place]) Comment on above: Performed By: #### C BC, ADIFF, ANEU, BMP, GFR #### [address] [address] Electrolyte Balance 2.0 mEq/L Low 4.0-15.0 Replaced by [facility] ([place]) Comment on above: Performed By: #### C BC, ADIFF, ANEU, BMP, GFR #### [address] [address] Glucose [Mass/Vol] 181 mg/dL High 83-110 [facility] ([place]) Comment on above: Performed By: #### C BC, ADIFF, ANEU, BMP, GFR #### [address] [address] Potassium [Moles/Vol] 4.6 mmol/L Normal 3.5-5.1 [facility] ([place]) Comment on above: Performed By: #### C BC, ADIFF, ANEU, BMP, GFR #### [address] [address] Sodium [Moles/Vol] 141 mmol/L Normal 136-145 [facility] ([place]) Comment on above: Performed By: #### C BC, ADIFF, ANEU, BMP, GFR #### [address] [address] Urea nitrogen [Mass/Vol] 20 mg/dL High 7-18 [facility] ([place]) Comment on above: Performed By: #### C BC, ADIFF, ANEU, BMP, GFR #### [address] [address] CBCon 01-12-2023 Erythrocyte distribution width (RBC) [Ratio] 12.9 % Normal 11.5-14.5 [facility] ([place]) Comment on above: Performed By: #### C BC, ADIFF, ANEU, BMP, GFR #### [place] [address] Hematocrit (Bld) [Volume fraction] 39.6 % Normal 37.0-47.0 [facility] ([place]) Comment on above: Performed By: #### C BC, ADIFF, ANEU, BMP, GFR #### [place] [address] Hgb 13.2 G/dL Normal 12.0-16.0 [facility] ([place]) Comment on above: Performed By: #### C BC, ADIFF, ANEU, BMP, GFR #### [place] [address] MCH (RBC) [Entitic mass] 30.7 pg Normal 27.0-31.2 [facility] ([place]) Comment on above: Performed By: #### C BC, ADIFF, ANEU, BMP, GFR #### [place] [address] MCHC 33.3 G/dL Normal 33.0-37.0 [facility] ([place]) Comment on above: Performed By: #### C BC, ADIFF, ANEU, BMP, GFR #### [place] [address] MCV (RBC) [Entitic vol] 92.1 fL Normal 80.0-94.0 [facility] ([place]) Comment on above: Performed By: #### C BC, ADIFF, ANEU, BMP, GFR #### [place] [address] Platelet 141 10 3/mcL Normal 130-400 [facility] ([place]) Comment on above: Performed By: #### C BC, ADIFF, ANEU, BMP, GFR #### [address] [address] Platelet mean volume (Bld) [Entitic vol] 8.6 fL Normal 7.4-10.4 [facility] ([place]) Comment on above: Performed By: #### C BC, ADIFF, ANEU, BMP, GFR #### [address] [address] RBC 4.30 10 6/mcL Normal 4.20-5.40 [facility] ([place]) Comment on above: Performed By: #### C BC, ADIFF, ANEU, BMP, GFR #### [address] [address] WBC 16.6 10 3/mcL High 4.6-10.8 [facility] ([place]) Comment on above: Performed By: #### C BC, ADIFF, ANEU, BMP, GFR #### [address] [address] LABORATORYOrdered By: Stephanie Lilly on 01-12-2023 Basophil, Absolute 0.0 103/mcL Invalid Interpretation Code 0.0 - 0.2 10^3/mcL AO Workflow SS Basophils/100 WBC (Bld) 0.1 % Invalid Interpretation Code 0.0 - 2.5 % AO Workflow SS Eosinophil, Absolute 0.0 103/mcL Invalid Interpretation Code 0.0 - 0.4 10^3/mcL AO Workflow SS Eosinophils/100 WBC (Bld) 0.0 % Invalid Interpretation Code 0.0 - 7.0 % AO Workflow SS Erythrocyte distribution width (RBC) [Ratio] 12.9 % Invalid Interpretation Code 11.5 - 14.5 % AO Workflow SS Hematocrit (Bld) [Volume fraction] 39.6 % Invalid Interpretation Code 37.0 - 47.0 % AO Workflow SS Hemoglobin (Bld) [Mass/Vol] 13.2 G/dL Invalid Interpretation Code 12.0 - 16.0 G/dL AO Workflow SS Lymphocyte, Absolute 1.1 103/mcL Invalid Interpretation Code 0.8 - 3.9 10^3/mcL AO Workflow SS Lymphocytes/100 WBC (Bld) 6.4 % Invalid Interpretation Code 10.0 - 50.0 % AO Workflow SS MCH (RBC) [Entitic mass] 30.7 pg Invalid Interpretation Code 27.0 - 31.2 pg AO Workflow SS MCHC 33.3 G/dL Invalid Interpretation Code 33.0 - 37.0 G/dL AO Workflow SS MCV (RBC) [Entitic vol] 92.1 fL Invalid Interpretation Code 80.0 - 94.0 fL AO Workflow SS Monocyte, Absolute 1.2 103/mcL Invalid Interpretation Code 0.2 - 1.0 10^3/mcL AO Workflow SS Monocytes/100 WBC (Bld) 7.4 % Invalid Interpretation Code 1.7 - 13.0 % AO Workflow SS Neutrophil, Absolute 14.3 103/mcL Invalid Interpretation Code 2.9 - 6.2 10^3/mcL AO Workflow SS Neutrophils/100 WBC (Bld) 86.1 % Invalid Interpretation Code 37.0 - 80.0 % AO Workflow SS Platelet mean volume (Bld) [Entitic vol] 8.6 fL Invalid Interpretation Code 7.4 - 10.4 fL AO Workflow SS Platelets (Bld) [#/Vol] 141 103/mcL Invalid Interpretation Code 130 - 400 10^3/mcL AO Workflow SS RBC (Bld) [#/Vol] 4.30 106/mcL Invalid Interpretation Code 4.20 - 5.40 10^6/mcL AO Workflow SS WBC (Bld) [#/Vol] 16.6 103/mcL Invalid Interpretation Code 4.6 - 10.8 10^3/mcL AO Workflow SS LABORATORYOrdered By: SYSTEM SYSTEM on 01-12-2023 Calcium [Mass/Vol] 8.9 mg/dL Invalid Interpretation Code 8.4 - 10.2 mg/dL AO ADM SS Chloride [Moles/Vol] 107 mmol/L Invalid Interpretation Code 98 - 107 mmol/L AO ADM SS CO2 [Moles/Vol] 32 mmol/L Invalid Interpretation Code 23 - 31 mmol/L AO ADM SS Creatinine [Mass/Vol] 0.81 mg/dL Invalid Interpretation Code 0.55 - 1.02 mg/dL AO ADM SS Electrolyte Balance 2.0 mEq/L Invalid Interpretation Code 4.0 - 15.0 mEq/L AO ADM SS GFR/1.73 sq M.predicted among blacks MDRD (S/P/Bld) [Vol rate/Area] 84 ml/min/1.73sqm Invalid Interpretation Code AO Chemistry S GFR/1.73 sq M.predicted among non-blacks MDRD (S/P/Bld) [Vol rate/Area] 69 ml/min/1.73sqm Invalid Interpretation Code AO Chemistry S Glucose [Mass/Vol] 181 mg/dL Invalid Interpretation Code 83 - 110 mg/dL AO ADM SS Potassium [Moles/Vol] 4.6 mmol/L Invalid Interpretation Code 3.5 - 5.1 mmol/L AO ADM SS Sodium [Moles/Vol] 141 mmol/L Invalid Interpretation Code 136 - 145 mmol/L AO ADM SS Urea nitrogen [Mass/Vol] 20 mg/dL Invalid Interpretation Code 7 - 18 mg/dL AO ADM SS Urea nitrogen/Creatinine [Mass ratio] 25 ratio Invalid Interpretation Code 7 - 27 ratio AO ADM SS Gel ABOon 01-11-2023 ABO/Rh Interp Positive Invalid Interpretation Code [facility] ([place]) Comment on above: Performed By: #### C BC, ADIFF, ANEU, BMP, GFR #### [place] [id number] [place], [place] [address] Gel ABSon 01-11-2023 Antibody Screen Gel Negative Normal Replaced by [facility] ([place]) Comment on above: Performed By: #### C BC, ADIFF, ANEU, BMP, GFR #### [place] [id number] [place], [place] [address] LABORATORYOrdered By: Vikki Lazaro on 01-11-2023 Glucose [Mass/Vol] 123 mg/dL Invalid Interpretation Code 82 - 115 mg/dL [facility] Work Phone: LABORATORYOrdered By: Jackie Tran on 01-11-2023 ABO/Rh Interp Positive Invalid Interpretation Code AO BB SS Antibody Screen Gel Negative ABSC (01/11/23 7:09 AM) Invalid Interpretation Code AO BB SS XR FLUORO 1-2 HRS TECH TIMEo n 01-11-2023 XR FLUORO 1-2 HRS TECH TIME ORIGINAL Images acquired, not reported on this accession number. Normal [facility] ([place]) XR HIP LEFT W/PELVIS 4 VIEWS on 01-11-2023 XR HIP LEFT W/PELVIS 4 VIEWS ORIGINAL EXAMINATION: POSTOPERATIVE HIP TECHNIQUE: Three views of the left hip COMPARISON: None. HISTORY: ORDERING SYSTEM PROVIDED HISTORY: Reason for Exam: Status Post Arthroplasty FINDINGS: The patient is status post left hip replacement. There is appropriate position of the prosthesis. There are postsurgical changes in the soft tissues. A remote right hip replacement is seen. Posterior fusion L3-S1. Thoracic spinal stimulator with generator overlying the left iliac bone. IMPRESSION: Postsurgical changes of the left hip status post hip replacement. Interpreted by: Zaki Merritt MD Preliminary Report By: Zaki Merritt MD Electronically signed By Zaki Merritt MD Dictated Date: 01/11/2023 10:55:22 AM Prelim Date: 01/11/2023 10:57:21 AM Sign Date: 01/11/2023 10:57:21 AM Ordering Provider: ALEX Her [facility] ([place]) .Auto Diffon 12-20-2022 Basophil, Absolute 0.0 10 3/mcL Normal 0.0-0.2 [facility] ([place]) Comment on above: Performed By: #### B MP, ALB, GFR, A1C, CBC, ADIFF, ANEU, APTT, PRO, ABOG, ANSG #### [address] [address] Basophils/100 WBC (Bld) 0.6 % Normal 0.0-2.5 [facility] ([place]) Comment on above: Performed By: #### B MP, ALB, GFR, A1C, CBC, ADIFF, ANEU, APTT, PRO, ABOG, ANSG #### [address] [address] Eosinophil, Absolute 0.3 10 3/mcL Normal 0.0-0.4 [facility] ([place]) Comment on above: Performed By: #### B MP, ALB, GFR, A1C, CBC, ADIFF, ANEU, APTT, PRO, ABOG, ANSG #### [address] [address] Eosinophils/100 WBC (Bld) 3.7 % Normal 0.0-7.0 [facility] ([place]) Comment on above: Performed By: #### B MP, ALB, GFR, A1C, CBC, ADIFF, ANEU, APTT, PRO, ABOG, ANSG #### [address] [address] Lymphocyte, Absolute 2.2 10 3/mcL Normal 0.8-3.9 [facility] ([place]) Comment on above: Performed By: #### B MP, ALB, GFR, A1C, CBC, ADIFF, ANEU, APTT, PRO, ABOG, ANSG #### [address] [address] Lymphocytes/100 WBC (Bld) 30.2 % Normal 10.0-50.0 [facility] ([place]) Comment on above: Performed By: #### B MP, ALB, GFR, A1C, CBC, ADIFF, ANEU, APTT, PRO, ABOG, ANSG #### [address] [address] Monocyte, Absolute 0.7 10 3/mcL Normal 0.2-1.0 [facility] ([place]) Comment on above: Performed By: #### B MP, ALB, GFR, A1C, CBC, ADIFF, ANEU, APTT, PRO, ABOG, ANSG #### [address] [address] Monocytes/100 WBC (Bld) 9.7 % Normal 1.7-13.0 [facility] ([place]) Comment on above: Performed By: #### B MP, ALB, GFR, A1C, CBC, ADIFF, ANEU, APTT, PRO, ABOG, ANSG #### [address] [address] Neutrophils/100 WBC (Bld) 55.8 % Normal 37.0-80.0 [facility] ([place]) Comment on above: Performed By: #### B MP, ALB, GFR, A1C, CBC, ADIFF, ANEU, APTT, PRO, ABOG, ANSG #### [address] [address] .GFRon 12-20-2022 GFR Non- 84 ml/min/1.73sqm Normal [facility] ([place]) Comment on above: Result Comment: GFR Population mean for , Non- Americans Ages 20-29 = 116 mL/min/1.73 sq.m. Ages 30-39 = 107 mL/min/1.73 sq.m. Ages 40-49 = 99 mL/min/1.73 sq.m. Ages 50-59 = 93 mL/min/1.73 sq.m. Ages 60-69 = 85 mL/min/1.73 sq.m. Ages 70+ = 75 mL/min/1.73 sq.m. Chronic Kidney Disease: Less than 60 mL/min/1.73 square meters End Stage Renal Disease: Less than 15 mL/min/1.73 square meters Performed By: #### C BC, ADIFF, ANEU, BMP, GFR #### [address] [address] GFR 102 ml/min/1.73sqm Normal [facility] ([place]) Comment on above: Result Comment: GFR Population mean for , Non- Americans Ages 20-29 = 116 mL/min/1.73 sq.m. Ages 30-39 = 107 mL/min/1.73 sq.m. Ages 40-49 = 99 mL/min/1.73 sq.m. Ages 50-59 = 93 mL/min/1.73 sq.m. Ages 60-69 = 85 mL/min/1.73 sq.m. Ages 70+ = 75 mL/min/1.73 sq.m. Chronic Kidney Disease: Less than 60 mL/min/1.73 square meters End Stage Renal Disease: Less than 15 mL/min/1.73 square meters Performed By: #### C BC, ADIFF, ANEU, BMP, GFR #### [address] [address] .NEUABSon 12-20-2022 Neutrophil, Absolute 4.1 10 3/mcL Normal 2.9-6.2 [facility] ([place]) Comment on above: Performed By: #### B MP, ALB, GFR, A1C, CBC, ADIFF, ANEU, APTT, PRO, ABOG, ANSG #### [address] [address] A1Con 12-20-2022 HbA1c (Bld) [Mass fraction] 6.7 % High 4.3-6.4 [facility] ([place]) Comment on above: Performed By: #### C BC, ADIFF, ANEU, BMP, GFR #### [address] [address] ALBon 12-20-2022 Albumin Level 3.9 G/dL Normal 3.4-4.8 [facility] ([place]) Comment on above: Performed By: #### C BC, ADIFF, ANEU, BMP, GFR #### [address] [address] APTTon 12-20-2022 aPTT Coag (Bld) [Time] 34.0 s Normal 25.0-35.0 [facility] ([place]) Comment on above: Result Comment: For Heparin anticoagulation therapy, the recommended therapeutic range is: 50.6-87.4 seconds. Patients on heparin therapy may have an extreme result. Performed By: #### B MP, ALB, GFR, A1C, CBC, ADIFF, ANEU, APTT, PRO, ABOG, ANSG #### [address] [address] Heparin dose (APTT) Unknown Normal Replaced by [facility] ([place]) Comment on above: Performed By: #### B MP, ALB, GFR, A1C, CBC, ADIFF, ANEU, APTT, PRO, ABOG, ANSG #### [address] [address] BMPon 12-20-2022 BUN/Creatinine Ratio 22 ratio Normal 7-27 [facility] ([place]) Comment on above: Performed By: #### C BC, ADIFF, ANEU, BMP, GFR #### [address] [address] Calcium [Mass/Vol] 9.9 mg/dL Normal 8.4-10.2 [facility] ([place]) Comment on above: Performed By: #### C BC, ADIFF, ANEU, BMP, GFR #### [address] [address] Chloride [Moles/Vol] 106 mmol/L Normal 98-107 [facility] ([place]) Comment on above: Performed By: #### C BC, ADIFF, ANEU, BMP, GFR #### [address] [address] CO2 [Moles/Vol] 28 mmol/L Normal 23-31 [facility] ([place]) Comment on above: Performed By: #### C BC, ADIFF, ANEU, BMP, GFR #### [address] [address] Creatinine [Mass/Vol] 0.68 mg/dL Normal 0.55-1.02 [facility] ([place]) Comment on above: Performed By: #### C BC, ADIFF, ANEU, BMP, GFR #### [address] [address] Electrolyte Balance 11.0 mEq/L Normal 4.0-15.0 Replaced by [facility] ([place] Comment on above: Performed By: #### C BC, ADIFF, ANEU, BMP, GFR #### [place] [id number] Glucose [Mass/Vol] 100 mg/dL Normal 83-110 [facility] ([place]) Comment on above: Performed By: #### C BC, ADIFF, ANEU, BMP, GFR #### [place] [id number] Potassium [Moles/Vol] 4.0 mmol/L Normal 3.5-5.1 [facility] ([place]) Comment on above: Performed By: #### C BC, ADIFF, ANEU, BMP, GFR #### [place] [id number] Sodium [Moles/Vol] 145 mmol/L Normal 136-145 [facility] ([place]) Comment on above: Performed By: #### C BC, ADIFF, ANEU, BMP, GFR #### [place] [id number] Urea nitrogen [Mass/Vol] 15 mg/dL Normal 7-18 [facility] ([place]) Comment on above: Performed By: #### C BC, ADIFF, ANEU, BMP, GFR #### [place] [id number] CBCon 12-20-2022 Erythrocyte distribution width (RBC) [Ratio] 13.4 % Normal 11.5-14.5 [facility] ([place]) Comment on above: Order Comment: Pre-A dmission Testing Performed By: #### B MP, ALB, GFR, A1C, CBC, ADIFF, ANEU, APTT, PRO, ABOG, ANSG #### [address] [address] Hematocrit (Bld) [Volume fraction] 46.3 % Normal 37.0-47.0 [facility] ([place]) Comment on above: Order Comment: Pre-A dmission Testing Performed By: #### B MP, ALB, GFR, A1C, CBC, ADIFF, ANEU, APTT, PRO, ABOG, ANSG #### [place] [address] Hgb 15.7 G/dL Normal 12.0-16.0 [facility] ([place]) Comment on above: Order Comment: Pre-A dmission Testing Performed By: #### B MP, ALB, GFR, A1C, CBC, ADIFF, ANEU, APTT, PRO, ABOG, ANSG #### [address] [address] MCH (RBC) [Entitic mass] 31.1 pg Normal 27.0-31.2 [facility] ([place]) Comment on above: Order Comment: Pre-A dmission Testing Performed By: #### B MP, ALB, GFR, A1C, CBC, ADIFF, ANEU, APTT, PRO, ABOG, ANSG #### [place] [address] MCHC 33.8 G/dL Normal 33.0-37.0 [facility] ([place]) Comment on above: Order Comment: Pre-A dmission Testing Performed By: #### B MP, ALB, GFR, A1C, CBC, ADIFF, ANEU, APTT, PRO, ABOG, ANSG #### [address] [address] MCV (RBC) [Entitic vol] 91.9 fL Normal 80.0-94.0 [facility]) Comment on above: Order Comment: Pre-A dmission Testing Performed By: #### B MP, ALB, GFR, A1C, CBC, ADIFF, ANEU, APTT, PRO, ABOG, ANSG #### [address] [address] Platelet 155 10 3/mcL Normal 130-400 [facility] ([place]) Comment on above: Order Comment: Pre-A dmission Testing Performed By: #### B MP, ALB, GFR, A1C, CBC, ADIFF, ANEU, APTT, PRO, ABOG, ANSG #### [address] [address] Platelet mean volume (Bld) [Entitic vol] 9.1 fL Normal 7.4-10.4 [facility] ([place]) Comment on above: Order Comment: Pre-A dmission Testing Performed By: #### B MP, ALB, GFR, A1C, CBC, ADIFF, ANEU, APTT, PRO, ABOG, ANSG #### [address] [address] RBC 5.04 10 6/mcL Normal 4.20-5.40 [facility] ([place]) Comment on above: Order Comment: Pre-A dmission Testing Performed By: #### B MP, ALB, GFR, A1C, CBC, ADIFF, ANEU, APTT, PRO, ABOG, ANSG #### [address] [address] WBC 7.3 10 3/mcL Normal 4.6-10.8 [facility]) Comment on above: Order Comment: Pre-A dmission Testing Performed By: #### B MP, ALB, GFR, A1C, CBC, ADIFF, ANEU, APTT, PRO, ABOG, ANSG #### [address] [address] Gel ABOon 12-20-2022 ABO/Rh Interp Positive Invalid Interpretation Code [facility] ([place]) Comment on above: Order Comment: SURG ANDRES 01/11 -AC Performed By: #### C BC, ADIFF, ANEU, BMP, GFR #### [facility] [address] [place], [place] [address] Gel ABSon 12-20-2022 Antibody Screen Gel Negative [facility] Comment on above: Order Comment: SURG ANDRES 01/11 -AC Performed By: #### C BC, ADIFF, ANEU, BMP, GFR #### [address] [place], [place] [address] LABORATORYOrdered By: Breanna Orosco on 12-20-2022 ABO/Rh Interp Positive Invalid Interpretation Code AO BB SS Antibody Screen Gel Negative ABSC (12/20/22 11:32 AM) Invalid Interpretation Code AO BB SS LABORATORYOrdered By: [place] [employer] on 12-20-2022 Albumin BCP dye [Mass/Vol] 3.9 G/dL Invalid Interpretation Code 3.4 - 4.8 G/dL AO ADM SS Calcium [Mass/Vol] 9.9 mg/dL Invalid Interpretation Code 8.4 - 10.2 mg/dL AO ADM SS Chloride [Moles/Vol] 106 mmol/L Invalid Interpretation Code 98 - 107 mmol/L AO ADM SS CO2 [Moles/Vol] 28 mmol/L Invalid Interpretation Code 23 - 31 mmol/L AO ADM SS Creatinine [Mass/Vol] 0.68 mg/dL Invalid Interpretation Code 0.55 - 1.02 mg/dL AO ADM SS Electrolyte Balance 11.0 mEq/L Invalid Interpretation Code 4.0 - 15.0 mEq/L AO ADM SS GFR/1.73 sq M.predicted among blacks MDRD (S/P/Bld) [Vol rate/Area] 102 ml/min/1.73sqm Invalid Interpretation Code AO Chemistry S GFR/1.73 sq M.predicted among non-blacks MDRD (S/P/Bld) [Vol rate/Area] 84 ml/min/1.73sqm Invalid Interpretation Code AO Chemistry S Glucose [Mass/Vol] 100 mg/dL Invalid Interpretation Code 83 - 110 mg/dL AO ADM SS HbA1c (Bld) [Mass fraction] 6.7 % Invalid Interpretation Code 4.3 - 6.4 % AO ADM SS Potassium [Moles/Vol] 4.0 mmol/L Invalid Interpretation Code 3.5 - 5.1 mmol/L AO ADM SS Sodium [Moles/Vol] 145 mmol/L Invalid Interpretation Code 136 - 145 mmol/L AO ADM SS Urea nitrogen [Mass/Vol] 15 mg/dL Invalid Interpretation Code 7 - 18 mg/dL AO ADM SS Urea nitrogen/Creatinine [Mass ratio] 22 ratio Invalid Interpretation Code 7 - 27 ratio AO ADM SS LABORATORYOrdered By: Shelbie Ace on 12-20-2022 aPTT Coag (PPP) [Time] 34.0 s Invalid Interpretation Code 25.0 - 35.0 seconds AO [facility] SS Heparin dose (APTT) Unknown (12/20/22 11:32 AM) Invalid Interpretation Code AO [facility] SS INR Coag (PPP) [Relative time] 1.0 {INR} Invalid Interpretation Code AO [facility] SS PT Coag (PPP) [Time] 11.5 s Invalid Interpretation Code 9.1 - 14.2 seconds AO [facility] SS LABORATORYOrdered By: Olga Jenkins on 12-20-2022 Basophil, Absolute 0.0 103/mcL Invalid Interpretation Code 0.0 - 0.2 10^3/mcL AO Workflow SS Basophils/100 WBC (Bld) 0.6 % Invalid Interpretation Code 0.0 - 2.5 % AO Workflow SS Eosinophil, Absolute 0.3 103/mcL Invalid Interpretation Code 0.0 - 0.4 10^3/mcL AO Workflow SS Eosinophils/100 WBC (Bld) 3.7 % Invalid Interpretation Code 0.0 - 7.0 % AO Workflow SS Erythrocyte distribution width (RBC) [Ratio] 13.4 % Invalid Interpretation Code 11.5 - 14.5 % AO Workflow SS Hematocrit (Bld) [Volume fraction] 46.3 % Invalid Interpretation Code 37.0 - 47.0 % AO Workflow SS Hemoglobin (Bld) [Mass/Vol] 15.7 G/dL Invalid Interpretation Code 12.0 - 16.0 G/dL AO Workflow SS Lymphocyte, Absolute 2.2 103/mcL Invalid Interpretation Code 0.8 - 3.9 10^3/mcL AO Workflow SS Lymphocytes/100 WBC (Bld) 30.2 % Invalid Interpretation Code 10.0 - 50.0 % AO Workflow SS MCH (RBC) [Entitic mass] 31.1 pg Invalid Interpretation Code 27.0 - 31.2 pg AO Workflow SS MCHC 33.8 G/dL Invalid Interpretation Code 33.0 - 37.0 G/dL AO Workflow SS MCV (RBC) [Entitic vol] 91.9 fL Invalid Interpretation Code 80.0 - 94.0 fL AO Workflow SS Monocyte, Absolute 0.7 103/mcL Invalid Interpretation Code 0.2 - 1.0 10^3/mcL AO Workflow SS Monocytes/100 WBC (Bld) 9.7 % Invalid Interpretation Code 1.7 - 13.0 % AO Workflow SS Neutrophil, Absolute 4.1 103/mcL Invalid Interpretation Code 2.9 - 6.2 10^3/mcL AO Workflow SS Neutrophils/100 WBC (Bld) 55.8 % Invalid Interpretation Code 37.0 - 80.0 % AO Workflow SS Platelet mean volume (Bld) [Entitic vol] 9.1 fL Invalid Interpretation Code 7.4 - 10.4 fL AO Workflow SS Platelets (Bld) [#/Vol] 155 103/mcL Invalid Interpretation Code 130 - 400 10^3/mcL AO Workflow SS RBC (Bld) [#/Vol] 5.04 106/mcL Invalid Interpretation Code 4.20 - 5.40 10^6/mcL AO Workflow SS WBC (Bld) [#/Vol] 7.3 103/mcL Invalid Interpretation Code 4.6 - 10.8 10^3/mcL AO Workflow SS PROon 12-20-2022 PT Coag (PPP) [Time] 11.5 s Normal 9.1-14.2 [facility] ([place]) Comment on above: Performed By: #### B MP, ALB, GFR, A1C, CBC, ADIFF, ANEU, APTT, PRO, ABOG, ANSG #### [address] [address] PT International Ratio 1.0 Normal [facility] ([place]) Comment on above: Result Comment: [employer] (CHEST, 1991, 102:312S-25S) recommended therapeutic range for oral anticoagulant therapy is: LOW RISK: Prophylaxis of venous thrombosis INR: 2.0-3.0 Treatment of pulmonary embolism 2.0-3.0 Prevention of systemic embolism 2.0-3.0 HIGH RISK: Mechanical prosthetic valves 2.5-3.5 Performed By: #### B MP, ALB, GFR, A1C, CBC, ADIFF, ANEU, APTT, PRO, ABOG, ANSG #### [address] [address] Absolute lymphocyte countOrd ered By: Matthew Marshall on 12-16-2022 Lymphocytes Auto (Unsp spec) [#/Vol] 2.52 10*3/uL 0.83-4.51 [facility] Basophil percentageOrdered B y: Matthew Marshall on 12-16-2022 Basophils/100 WBC (Bld) 0.8 % 0-1 [facility] Bilirubin [Mass/Vol] 0.40 mg/dL 0.20-1.00 [facility] Comment on above: For patients on eltr ombopag therapy, use of [employer] [place] TBIL is not recommended. Chloride [Moles/Vol] 107 mmol/L 98-107 [facility] Eosinophils/100 WBC (Bld) 3.1 % 0-5 [facility] Glucose [Mass/Vol] 109 mg/dL 74-106 [facility] Comment on above: Fasting Glucose resu lt from 100 to 125 mg/dL suggests IMPAIRED HOMEOSTASIS per A.D.A. criteria. Neutrophils (Bld) [#/Vol] 4.3 10*3/uL 2.0-7.7 [facility] Neutrophils/100 WBC (Bld) 53.7 % 47-70 [facility] Potassium [Moles/Vol] 3.9 mmol/L 3.5-5.1 [facility] Protein [Mass/Vol] 7.6 g/dL 6.4-8.2 [facility] Sodium [Moles/Vol] 142 mmol/L 136-145 [facility] WBC (Bld) [#/Vol] 8.0 10*3/uL 4.4-11.0 [facility] Blood erythrocytes count (nu mber/volume)Ordered By: Matthew Marshall on 12-16-2022 RBC (Bld) [#/Vol] 5.32 10*6/uL 4.2-5.4 [facility] Blood hemoglobin measurement (mass/volume)Ordered By: Matthew Marshall on 12-16-2022 Hemoglobin (Bld) [Mass/Vol] 16.3 g/dL 12.0-15.0 [facility] Blood lymphocytes/100 leukoc ytesOrdered By: Matthew Marshall on 12-16-2022 Lymphocytes/100 WBC (Bld) 31.5 % 19-41 [facility] Blood monocytes/100 leukocyt esOrdered By: Matthew Marshall on 12-16-2022 Monocytes/100 WBC (Bld) 9.8 % 0-10 [facility] Blood platelet mean volumeOr dered By: Matthew Marshall on 12-16-2022 Platelet mean volume (Bld) [Entitic vol] 11.2 fL 6.2-12.0 [facility] Determination of erythrocyte mean corpuscular volume (MCV)Ordered By: Matthew Marshall on 12-16-2022 MCV (RBC) [Entitic vol] 94.0 fL 81-99 [facility] Hematocrit Auto (Bld) [Volum e fraction]Ordered By: Matthew Rolando on 12-16-2022 Hematocrit (Bld) [Volume fraction] 50.0 % 37-47 [facility] Laboratory - Chemistry and C hemistry - challengeOrdered By: Matthew Rolando on 12-16-2022 ALP [Catalytic activity/Vol] 70 U/L 45-117 [facility] ALT [Catalytic activity/Vol] 25 U/L 13-56 [facility] CO2 [Moles/Vol] 28.0 mmol/L 21.0-32.0 [facility] Globulin (S) [Mass/Vol] 3.9 g/dL 2.2-4.2 [facility] Urea nitrogen/Creatinine [Mass ratio] 22.7 mg/mg 10-20 [facility] Laboratory - Hematology and Cell countsOrdered By: Matthew Rolando on 12-16-2022 Erythrocyte distribution width (RBC) [Entitic vol] 44.2 fL 35.1-43.9 [facility] Erythrocyte distribution width (RBC) [Ratio] 12.8 % 11.6-14.6 [facility] Immature granulocytes/100 WBC (Bld) 1.100 % 0.0-0.9 [facility] Comment on above: IG% - Immature Granu locytes (promyelocytes, myelocytes and metamyelocytes) > 1% indicates that a LEFT SHIFT is Present. MCH (RBC) [Entitic mass] 30.6 pg 27.0-32.0 [facility] Nucleated RBC/100 WBC (Bld) [Ratio] 0 % 0-5 [facility] MCHC Auto (RBC) [Mass/Vol]Or dered By: Matthew Marshall on 12-16-2022 MCHC (RBC) [Mass/Vol] 32.6 g/dL 32-36 [facility] No Panel InformationOrdered By: Matthew Marshall on 12-16-2022 Estimated GFR (MDRD) Amer 97 mL/min >60 [facility] Comment on above: GFR Calc Estimated GFR (MDRD) Non-Af Amer 80 mL/min >60 [facility] Comment on above: Non- GFR Calc Platelets bldOrdered By: Otto Marshall on 12-16-2022 Platelets (Bld) [#/Vol] 167 10*3/uL 150-450 [facility] Qualitative QuantiFERON-TB g old in tube testOrdered By: Matthew Marshall on 12-16-2022 M. tuberculosis tuberculin stim IFN-g Ql (Bld) 0.02 IU/mL . [facility] Serum hepatitis B virus core antibody detectionOrdered By: Matthew Marshall on 12-16-2022 HBV core Ab Ql (S) Negative Negative [facility] Comment on above: Performed at: [facility] [employer] [place] [id number] Director: Stephan Mackenzie PhD, Phone: [phone] Serum or plasma albumin giovanni urement (mass/volume)Ordered By: Matthew Marshall on 12-16-2022 Albumin [Mass/Vol] 3.7 g/dL 3.2-5.0 [facility] Serum or plasma albumin/glob ulin mass ratioOrdered By: Matthew Marshall on 12-16-2022 Albumin/Globulin [Mass ratio] 0.9 {ratio} 0.9-2.4 [facility] Serum or plasma calcium giovanni urement (mass/volume)Ordered By: Matthew Marshall on 12-16-2022 Calcium [Mass/Vol] 10.1 mg/dL 8.5-10.1 [facility] Serum or plasma creatinine m easurement (mass/volume)Ordered By: Matthew Marshall on 12-16-2022 Creatinine [Mass/Vol] 0.75 mg/dL 0.55-1.02 [facility] Comment on above: The validity of the calculated GFR & GFRAA in patients over 70 years has not been determined. Clinical correlation is essential. Serum or plasma urea nitroge n measurement (mass/volume)Ordered By: Matthew Marshall on 12-16-2022 Urea nitrogen [Mass/Vol] 17 mg/dL 7-18 [facility] Thin prep Papanicolaou smear with manual screeningOrdered By: Matthew Marshall on 12-16-2022 Thin prep Papanicolaou smear with manual screening 23 U/L 15-37 [facility] Thin prep Papanicolaou smear with manual screening 7 5-15 [facility] Thin prep Papanicolaou smear with manual screening Comment . [facility] Comment on above: QuantiFERON-TB Gold Plus is a qualitative indirect test forM tuberculosis infection (including disease) and isintended for use in conjunction with risk assessment,radiography, and other medical and diagnostic evaluations.The QuantiFERON-TB Gold Plus result is determined bysubtracting the Nil value from either TB antigen (Ag)value. The Mitogen tube serves as a control for the test. Thin prep Papanicolaou smear with manual screening 0.03 IU/mL . [facility] Thin prep Papanicolaou smear with manual screening > 10.00 IU/mL . [facility] Thin prep Papanicolaou smear with manual screening Negative Negative [facility] Comment on above: No response to M tub erculosis antigens detected.Infection with M tuberculosis is unlikely, but high riskindividuals should be considered for additional testing(ATS/IDSA/CDC Clinical Practice Guidelines, 2017). Thereference range is an Antigen minus Nil result of <0.35IU/mL.The specimen received for QuantiFERON testing was incubatedby the ordering institution. Specific procedures outlinedin our Directory of Services and in the package insert forthe QuantiFERON Gold (In Tube) test must be followed toenable for proper stimulation of cells for the productionof interferon gamma. Chemiluminescence immunoassaymethodology Absolute lymphocyte countOrd ered By: Dr. Alonso on 11-12-2022 Lymphocytes Auto (Unsp spec) [#/Vol] 1.71 10*3/uL 0.83-4.51 [facility] Basophil percentageOrdered B y: Dr. Alonso on 11-12-2022 Basophils/100 WBC (Bld) 0.6 % 0-1 [facility] Bilirubin [Mass/Vol] 0.40 mg/dL 0.20-1.00 [facility] Comment on above: For patients on eltr ombopag therapy, use of [place] TBIL is not recommended. Chloride [Moles/Vol] 108 mmol/L 98-107 [facility] Cholesterol [Mass/Vol] 129 mg/dL <200 [facility] Comment on above: <200 mg/dL Desirable 200-240 mg/dL Borderline >240 mg/dL High Risk Eosinophils/100 WBC (Bld) 3.6 % 0-5 [facility] Glucose [Mass/Vol] 130 mg/dL 74-106 [facility] Comment on above: Fasting Glucose resu lt greater than or equal to 126 mg/dL suggests DIABETES MELLITUS per A.D.A. criteria. Neutrophils (Bld) [#/Vol] 3.8 10*3/uL 2.0-7.7 [facility] Neutrophils/100 WBC (Bld) 59.3 % 47-70 [facility] Potassium [Moles/Vol] 4.3 mmol/L 3.5-5.1 [facility] Protein [Mass/Vol] 6.9 g/dL 6.4-8.2 [facility] Sodium [Moles/Vol] 139 mmol/L 136-145 [facility] Triglyceride [Mass/Vol] 102 mg/dL <199 [facility] Comment on above: The drugs N-Acetylcy steine and Metamizole may falsely depress this assay.Serum Triglycerides Reference Interval Normal <150 mg/dL Borderline high 150 - 199 mg/dL High 200 - 499 mg/dL Very High > or = 500 mg/dL WBC (Bld) [#/Vol] 6.4 10*3/uL 4.4-11.0 [facility] Blood erythrocytes count (nu mber/volume)Ordered By: Dr. Alonso on 11-12-2022 RBC (Bld) [#/Vol] 5.02 10*6/uL 4.2-5.4 [facility] Blood hemoglobin measurement (mass/volume)Ordered By: Dr. Alonso on 11-12-2022 Hemoglobin (Bld) [Mass/Vol] 15.5 g/dL 12.0-15.0 [facility] Blood lymphocytes/100 leukoc ytesOrdered By: Dr. Alonso on 11-12-2022 Lymphocytes/100 WBC (Bld) 26.9 % 19-41 [facility] Blood monocytes/100 leukocyt esOrdered By: Dr. Alonso on 11-12-2022 Monocytes/100 WBC (Bld) 9.1 % 0-10 [facility] Blood platelet mean volumeOr dered By: Dr. Alonso on 11-12-2022 Platelet mean volume (Bld) [Entitic vol] 10.9 fL 6.2-12.0 [facility] Determination of erythrocyte mean corpuscular volume (MCV)Ordered By: Dr. Alonso on 11-12-2022 MCV (RBC) [Entitic vol] 95.8 fL 81-99 [facility] Hematocrit Auto (Bld) [Volum e fraction]Ordered By: Dr. Alonso on 11-12-2022 Hematocrit (Bld) [Volume fraction] 48.1 % 37-47 [facility] Laboratory - Chemistry and C hemistry - challengeOrdered By: Dr. Alonso on 11-12-2022 ALP [Catalytic activity/Vol] 68 U/L 45-117 [facility] ALT [Catalytic activity/Vol] 32 U/L 13-56 [facility] CO2 [Moles/Vol] 25.0 mmol/L 21.0-32.0 [facility] Globulin (S) [Mass/Vol] 3.4 g/dL 2.2-4.2 [facility] Magnesium [Mass/Vol] 2.3 mg/dL 1.6-2.6 [facility] Urea nitrogen/Creatinine [Mass ratio] 21.6 mg/mg 10-20 [facility] Laboratory - Hematology and Cell countsOrdered By: Dr. Alonso on 11-12-2022 Erythrocyte distribution width (RBC) [Entitic vol] 46.9 fL 35.1-43.9 [facility] Erythrocyte distribution width (RBC) [Ratio] 13.2 % 11.6-14.6 [facility] Immature granulocytes/100 WBC (Bld) 0.500 % 0.0-0.9 [facility] Comment on above: IG% - Immature Granu locytes (promyelocytes, myelocytes and metamyelocytes) > 1% indicates that a LEFT SHIFT is Present. MCH (RBC) [Entitic mass] 30.9 pg 27.0-32.0 [facility] Nucleated RBC/100 WBC (Bld) [Ratio] 0 % 0-5 [facility] MCHC Auto (RBC) [Mass/Vol]Or dered By: Dr. Alonso on 11-12-2022 MCHC (RBC) [Mass/Vol] 32.2 g/dL 32-36 [facility] No Panel InformationOrdered By: Dr. Alonso on 11-12-2022 Estimated GFR (MDRD) Amer 91 mL/min >60 [facility] Comment on above: GFR Calc Estimated GFR (MDRD) Non-Af Amer 76 mL/min >60 [facility] Comment on above: Non- GFR Calc Thyroid Stimulating Hormone (TSH) 2.48 uIU/mL 0.358-3.74 [facility] Vitamin D 25-Hydroxy 114.2 ng/mL [facility] Comment on above: Vitamin D 25(OH) Sta tus Range Deficiency <20 ng/mL (50nmol/L) Insufficiency 20 - 30 ng/mL (50 - 75 nmol/L) Sufficiency 30 - 100 ng/mL (75 - 250 nmol/L) Toxicity >100 ng/mL (>250 nmol/L)Evidence suggests that patients undergoing fluorescein dye angiography can retain small amounts of fluorescein in the body for up to 48 to 72 hours post-treatment. In the cases of patients with renal insufficiency, retention could be much longer. Samples containing fluorescein can produce falsely elevated values when tested with the [employer] Vitamin D assay. With fluorescein interference, observed Vitamin D values can be as high as >150 ng/mL (>375 nmol/L). Samples should be resubmitted post fluorescein clearance to ensure there is no interference with Vitamin D test results. Platelets bldOrdered By: Dr. Alonso on 11-12-2022 Platelets (Bld) [#/Vol] 184 10*3/uL 150-450 [facility] Serum or plasma albumin giovanni urement (mass/volume)Ordered By: Dr. Alonso on 11-12-2022 Albumin [Mass/Vol] 3.5 g/dL 3.2-5.0 [facility] Serum or plasma albumin/glob ulin mass ratioOrdered By: Dr. Alonso on 11-12-2022 Albumin/Globulin [Mass ratio] 1.0 {ratio} 0.9-2.4 [facility] Serum or plasma calcium giovanni urement (mass/volume)Ordered By: Dr. Alonso on 11-12-2022 Calcium [Mass/Vol] 10.1 mg/dL 8.5-10.1 [facility] Serum or plasma cholesterol in HDL measurement (mass/volume)Ordered By: Dr. Alonso on 11-12-2022 Cholesterol in HDL [Mass/Vol] 46 mg/dL >40 [facility] Comment on above: The drugs N-Acetylcy steine and Metamizole may falsely depress this assay. Reference Range HDL <40 mg/dL Low HDL Cholesterol HDL >or= 60 mg/dL High HDL Cholesterol Serum or plasma cholesterol in VLDL measurement (mass/volume)Ordered By: Dr. Alonso on 11-12-2022 Cholesterol in VLDL [Mass/Vol] 20 mg/dL 5-40 [facility] Serum or plasma creatinine m easurement (mass/volume)Ordered By: Dr. Alonso on 11-12-2022 Creatinine [Mass/Vol] 0.79 mg/dL 0.55-1.02 [facility] Comment on above: The validity of the calculated GFR & GFRAA in patients over 70 years has not been determined. Clinical correlation is essential. Serum or plasma low density lipoprotein (LDL) cholesterol measurement (mass/volume)Ordered By: Dr. Alonso on 11-12-2022 Cholesterol in LDL [Mass/Vol] 63 mg/dL 0-130 [facility] Serum or plasma urea nitroge n measurement (mass/volume)Ordered By: Dr. Alonso on 11-12-2022 Urea nitrogen [Mass/Vol] 17 mg/dL 7-18 [facility] Thin prep Papanicolaou smear with manual screeningOrdered By: Dr. Alonso on 11-12-2022 Thin prep Papanicolaou smear with manual screening 31 U/L 15-37 [facility] Thin prep Papanicolaou smear with manual screening 6 5-15 [facility] Whole blood hemoglobin A1c/t otal hemoglobin ratio (mass fraction)Ordered By: Dr. Alonso on 11-12-2022 HbA1c (Bld) [Mass fraction] 7.7 % 3.8-5.6 [facility] Comment on above: Normal < 5.7 % Predi abetic 5.7 - 6.4 % Diabetic >or= 6.5 % Please note range changes. Basophil percentageOrdered B y: Dr. Alonso on 09-02-2022 Bilirubin [Mass/Vol] 0.30 mg/dL 0.20-1.00 [facility] Comment on above: For patients on eltr ombopag therapy, use of [employer] [place] TBIL is not recommended. Chloride [Moles/Vol] 107 mmol/L 98-107 [facility] Glucose [Mass/Vol] 163 mg/dL 74-106 [facility] Comment on above: Fasting Glucose resu lt greater than or equal to 126 mg/dL suggests DIABETES MELLITUS per A.D.A. criteria. Potassium [Moles/Vol] 4.0 mmol/L 3.5-5.1 [facility] Protein [Mass/Vol] 6.8 g/dL 6.4-8.2 [facility] Sodium [Moles/Vol] 141 mmol/L 136-145 [facility] Laboratory - Chemistry and C hemistry - challengeOrdered By: Dr. Alonso on 09-02-2022 ALP [Catalytic activity/Vol] 76 U/L 45-117 [facility] ALT [Catalytic activity/Vol] 32 U/L 13-56 [facility] CO2 [Moles/Vol] 27.0 mmol/L 21.0-32.0 [facility] Globulin (S) [Mass/Vol] 3.4 g/dL 2.2-4.2 [facility] Lipase [Catalytic activity/Vol] 258 U/L 73-393 [facility] Urea nitrogen/Creatinine [Mass ratio] 25.7 mg/mg 10-20 [facility] No Panel InformationOrdered By: Dr. Alonso on 09-02-2022 Estimated GFR (MDRD) Amer 105 mL/min >60 [facility] Comment on above: GFR Calc Estimated GFR (MDRD) Non-Af Amer 87 mL/min >60 [facility] Comment on above: Non- GFR Calc Serum or plasma albumin giovanni urement (mass/volume)Ordered By: Dr. Alonso on 09-02-2022 Albumin [Mass/Vol] 3.4 g/dL 3.2-5.0 [facility] Serum or plasma albumin/glob ulin mass ratioOrdered By: Dr. Alonso on 09-02-2022 Albumin/Globulin [Mass ratio] 1.0 {ratio} 0.9-2.4 [facility] Serum or plasma calcium giovanni urement (mass/volume)Ordered By: Dr. Alonso on 09-02-2022 Calcium [Mass/Vol] 9.5 mg/dL 8.5-10.1 [facility] Serum or plasma creatinine m easurement (mass/volume)Ordered By: Dr. Alonso on 09-02-2022 Creatinine [Mass/Vol] 0.70 mg/dL 0.55-1.02 [facility] Comment on above: The validity of the calculated GFR & GFRAA in patients over 70 years has not been determined. Clinical correlation is essential. Serum or plasma urea nitroge n measurement (mass/volume)Ordered By: Dr. Alonso on 09-02-2022 Urea nitrogen [Mass/Vol] 18 mg/dL 7-18 [facility] Thin prep Papanicolaou smear with manual screeningOrdered By: Dr. Alonso on 09-02-2022 Thin prep Papanicolaou smear with manual screening 41 U/L 15-37 [facility] Thin prep Papanicolaou smear with manual screening 7 5-15 [facility] Absolute lymphocyte countOrd ered By: Juliette Martinez on 08-26-2022 Lymphocytes Auto (Unsp spec) [#/Vol] 1.73 10*3/uL 0.83-4.51 [facility] Basophil percentageOrdered B y: Juliette Martinez on 08-26-2022 Basophils/100 WBC (Bld) 0.5 % 0-1 [facility] Bilirubin [Mass/Vol] 0.50 mg/dL 0.20-1.00 [facility] Comment on above: For patients on eltr ombopag therapy, use of [employer] [place] TBIL is not recommended. Chloride [Moles/Vol] 107 mmol/L 98-107 [facility] Eosinophils/100 WBC (Bld) 2.4 % 0-5 [facility] Glucose [Mass/Vol] 248 mg/dL 74-106 [facility] Comment on above: Glucose result great er than or equal to 200 mg/dLsuggests DIABETES MELLITUS per A.D.A. criteria. Neutrophils (Bld) [#/Vol] 5.3 10*3/uL 2.0-7.7 [facility] Neutrophils/100 WBC (Bld) 67.4 % 47-70 [facility] Potassium [Moles/Vol] 4.2 mmol/L 3.5-5.1 [facility] Protein [Mass/Vol] 6.6 g/dL 6.4-8.2 [facility] Sodium [Moles/Vol] 139 mmol/L 136-145 [facility] WBC (Bld) [#/Vol] 7.9 10*3/uL 4.4-11.0 [facility] Blood erythrocytes count (nu mber/volume)Ordered By: Juliette Martinez on 08-26-2022 RBC (Bld) [#/Vol] 4.73 10*6/uL 4.2-5.4 [facility] Blood hemoglobin measurement (mass/volume)Ordered By: Juliette Martinez on 08-26-2022 Hemoglobin (Bld) [Mass/Vol] 14.2 g/dL 12.0-15.0 [facility] Blood lymphocytes/100 leukoc ytesOrdered By: Juliette Martinez on 08-26-2022 Lymphocytes/100 WBC (Bld) 21.9 % 19-41 [facility] Blood monocytes/100 leukocyt esOrdered By: Juliette Martinez on 08-26-2022 Monocytes/100 WBC (Bld) 7.0 % 0-10 [facility] Blood platelet mean volumeOr dered By: Juliette Martinez on 08-26-2022 Platelet mean volume (Bld) [Entitic vol] 10.5 fL 6.2-12.0 [facility] Determination of erythrocyte mean corpuscular volume (MCV)Ordered By: Juliette Martinez on 08-26-2022 MCV (RBC) [Entitic vol] 93.0 fL 81-99 [facility] Hematocrit Auto (Bld) [Volum e fraction]Ordered By: Juliette Martinez on 08-26-2022 Hematocrit (Bld) [Volume fraction] 44.0 % 37-47 [facility] Laboratory - Chemistry and C hemistry - challengeOrdered By: Juliette Martinez on 08-26-2022 ALP [Catalytic activity/Vol] 72 U/L 45-117 [facility] ALT [Catalytic activity/Vol] 25 U/L 13-56 [facility] CO2 [Moles/Vol] 25.0 mmol/L 21.0-32.0 [facility] Globulin (S) [Mass/Vol] 3.3 g/dL 2.2-4.2 [facility] Lipase [Catalytic activity/Vol] 632 U/L 73-393 [facility] Urea nitrogen/Creatinine [Mass ratio] 28.4 mg/mg 10-20 [facility] Laboratory - Hematology and Cell countsOrdered By: Juliette Martinez on 08-26-2022 Erythrocyte distribution width (RBC) [Entitic vol] 44.6 fL 35.1-43.9 [facility] Erythrocyte distribution width (RBC) [Ratio] 13.0 % 11.6-14.6 [facility] Immature granulocytes/100 WBC (Bld) 0.800 % 0.0-0.9 [facility] Comment on above: IG% - Immature Granu locytes (promyelocytes, myelocytes and metamyelocytes) > 1% indicates that a LEFT SHIFT is Present. MCH (RBC) [Entitic mass] 30.0 pg 27.0-32.0 [facility] Nucleated RBC/100 WBC (Bld) [Ratio] 0 % 0-5 [facility] MCHC Auto (RBC) [Mass/Vol]Or dered By: Juliette Martinez on 08-26-2022 MCHC (RBC) [Mass/Vol] 32.3 g/dL 32-36 [facility] No Panel InformationOrdered By: Juliette Martinez on 08-26-2022 Estimated GFR (MDRD) Amer 104 mL/min >60 [facility] Comment on above: GFR Calc Estimated GFR (MDRD) Non-Af Amer 86 mL/min >60 [facility] Comment on above: Non- GFR Calc Platelets bldOrdered By: Marilou Martinez on 08-26-2022 Platelets (Bld) [#/Vol] 194 10*3/uL 150-450 [facility] Serum or plasma albumin giovanni urement (mass/volume)Ordered By: Juliette Martinez on 08-26-2022 Albumin [Mass/Vol] 3.3 g/dL 3.2-5.0 [facility] Serum or plasma albumin/glob ulin mass ratioOrdered By: Juliettecorie Martinez on 08-26-2022 Albumin/Globulin [Mass ratio] 1.0 {ratio} 0.9-2.4 [facility] Serum or plasma calcium giovanni urement (mass/volume)Ordered By: Juliette Martinez on 08-26-2022 Calcium [Mass/Vol] 9.6 mg/dL 8.5-10.1 [facility] Serum or plasma creatinine m easurement (mass/volume)Ordered By: Juliettecorie Martinez on 08-26-2022 Creatinine [Mass/Vol] 0.70 mg/dL 0.55-1.02 [facility] Comment on above: The validity of the calculated GFR & GFRAA in patients over 70 years has not been determined. Clinical correlation is essential. Serum or plasma urea nitroge n measurement (mass/volume)Ordered By: Juliettecorie Martinez on 08-26-2022 Urea nitrogen [Mass/Vol] 20 mg/dL 7-18 [facility] Thin prep Papanicolaou smear with manual screeningOrdered By: Juliettecorie Martinez on 08-26-2022 Thin prep Papanicolaou smear with manual screening 21 U/L 15-37 [facility] Thin prep Papanicolaou smear with manual screening 7 5-15 [facility] Absolute lymphocyte countOrd ered By: Dr. Alonso on 08-17-2022 Lymphocytes Auto (Unsp spec) [#/Vol] 1.83 10*3/uL 0.83-4.51 [facility] Basophil percentageOrdered B y: Dr. Alonso on 08-17-2022 Basophils/100 WBC (Bld) 0.5 % 0-1 [facility] Bilirubin [Mass/Vol] 0.40 mg/dL 0.20-1.00 [facility] Comment on above: For patients on eltr ombopag therapy, use of [place] TBIL is not recommended. Chloride [Moles/Vol] 106 mmol/L 98-107 [facility] Cholesterol [Mass/Vol] 146 mg/dL <200 [facility] Comment on above: <200 mg/dL Desirable 200-240 mg/dL Borderline >240 mg/dL High Risk Eosinophils/100 WBC (Bld) 3.2 % 0-5 [facility] Glucose [Mass/Vol] 161 mg/dL 74-106 [facility] Comment on above: Fasting Glucose resu lt greater than or equal to 126 mg/dL suggests DIABETES MELLITUS per A.D.A. criteria. Neutrophils (Bld) [#/Vol] 5.1 10*3/uL 2.0-7.7 [facility] Neutrophils/100 WBC (Bld) 64.3 % 47-70 [facility] Potassium [Moles/Vol] 4.1 mmol/L 3.5-5.1 [facility] Protein [Mass/Vol] 6.4 g/dL 6.4-8.2 [facility] Sodium [Moles/Vol] 140 mmol/L 136-145 [facility] Triglyceride [Mass/Vol] 120 mg/dL <199 [facility] Comment on above: The drugs N-Acetylcy steine and Metamizole may falsely depress this assay.Serum Triglycerides Reference Interval Normal <150 mg/dL Borderline high 150 - 199 mg/dL High 200 - 499 mg/dL Very High > or = 500 mg/dL WBC (Bld) [#/Vol] 7.9 10*3/uL 4.4-11.0 [facility] Blood erythrocytes count (nu mber/volume)Ordered By: Dr. Alonso on 08-17-2022 RBC (Bld) [#/Vol] 4.57 10*6/uL 4.2-5.4 [facility] Blood hemoglobin measurement (mass/volume)Ordered By: Dr. Alonso on 08-17-2022 Hemoglobin (Bld) [Mass/Vol] 14.0 g/dL 12.0-15.0 [facility] Blood lymphocytes/100 leukoc ytesOrdered By: Dr. Alonso on 08-17-2022 Lymphocytes/100 WBC (Bld) 23.3 % 19-41 [facility] Blood monocytes/100 leukocyt esOrdered By: Dr. Alonso on 08-17-2022 Monocytes/100 WBC (Bld) 8.1 % 0-10 [facility] Blood platelet mean volumeOr dered By: Dr. Alonso on 08-17-2022 Platelet mean volume (Bld) [Entitic vol] 10.4 fL 6.2-12.0 [facility] Determination of erythrocyte mean corpuscular volume (MCV)Ordered By: Dr. Alonso on 08-17-2022 MCV (RBC) [Entitic vol] 94.1 fL 81-99 [facility] Hematocrit Auto (Bld) [Volum e fraction]Ordered By: Dr. Alonso on 08-17-2022 Hematocrit (Bld) [Volume fraction] 43.0 % 37-47 [facility] Laboratory - Chemistry and C hemistry - challengeOrdered By: Dr. Alonso on 08-17-2022 ALP [Catalytic activity/Vol] 66 U/L 45-117 [facility] ALT [Catalytic activity/Vol] 29 U/L 13-56 [facility] CO2 [Moles/Vol] 28.0 mmol/L 21.0-32.0 [facility] Globulin (S) [Mass/Vol] 3.0 g/dL 2.2-4.2 [facility] Urea nitrogen/Creatinine [Mass ratio] 28.5 mg/mg 10-20 [facility] Laboratory - Hematology and Cell countsOrdered By: Dr. Alonso on 08-17-2022 Erythrocyte distribution width (RBC) [Entitic vol] 44.5 fL 35.1-43.9 [facility] Erythrocyte distribution width (RBC) [Ratio] 12.9 % 11.6-14.6 [facility] Immature granulocytes/100 WBC (Bld) 0.600 % 0.0-0.9 [facility] Comment on above: IG% - Immature Granu locytes (promyelocytes, myelocytes and metamyelocytes) > 1% indicates that a LEFT SHIFT is Present. MCH (RBC) [Entitic mass] 30.6 pg 27.0-32.0 [facility] Nucleated RBC/100 WBC (Bld) [Ratio] 0 % 0-5 [facility] MCHC Auto (RBC) [Mass/Vol]Or dered By: Dr. Alonso on 08-17-2022 MCHC (RBC) [Mass/Vol] 32.6 g/dL 32-36 [facility] No Panel InformationOrdered By: Dr. Alonso on 08-17-2022 Estimated GFR (MDRD) Amer 105 mL/min >60 [facility] Comment on above: GFR Calc Estimated GFR (MDRD) Non-Af Amer 87 mL/min >60 [facility] Comment on above: Non- GFR Calc Thyroid Stimulating Hormone (TSH) 3.05 uIU/mL 0.358-3.74 [facility] Urine Microalbumin/Creatinin e Ratio 24.1 mg/g CRE <30 [facility] Vitamin D 25-Hydroxy 51.9 ng/mL [facility] Comment on above: Vitamin D 25(OH) Sta tus Range Deficiency <20 ng/mL (50nmol/L) Insufficiency 20 - 30 ng/mL (50 - 75 nmol/L) Sufficiency 30 - 100 ng/mL (75 - 250 nmol/L) Toxicity >100 ng/mL (>250 nmol/L) Platelets bldOrdered By: Dr. Alonso on 08-17-2022 Platelets (Bld) [#/Vol] 192 10*3/uL 150-450 [facility] Serum or plasma albumin giovanni urement (mass/volume)Ordered By: Dr. Alonso on 08-17-2022 Albumin [Mass/Vol] 3.4 g/dL 3.2-5.0 [facility] Serum or plasma albumin/glob ulin mass ratioOrdered By: Dr. Alonso on 08-17-2022 Albumin/Globulin [Mass ratio] 1.1 {ratio} 0.9-2.4 [facility] Serum or plasma calcium giovanni urement (mass/volume)Ordered By: Dr. Alonso on 08-17-2022 Calcium [Mass/Vol] 9.4 mg/dL 8.5-10.1 [facility] Serum or plasma cholesterol in HDL measurement (mass/volume)Ordered By: Dr. Alonso on 08-17-2022 Cholesterol in HDL [Mass/Vol] 55 mg/dL >40 [facility] Comment on above: The drugs N-Acetylcy steine and Metamizole may falsely depress this assay. Reference Range HDL <40 mg/dL Low HDL Cholesterol HDL >or= 60 mg/dL High HDL Cholesterol Serum or plasma cholesterol in VLDL measurement (mass/volume)Ordered By: Dr. Alonso on 08-17-2022 Cholesterol in VLDL [Mass/Vol] 24 mg/dL 5-40 [facility] Serum or plasma creatinine m easurement (mass/volume)Ordered By: Dr. Alonso on 08-17-2022 Creatinine [Mass/Vol] 0.70 mg/dL 0.55-1.02 [facility] Comment on above: The validity of the calculated GFR & GFRAA in patients over 70 years has not been determined. Clinical correlation is essential. Serum or plasma low density lipoprotein (LDL) cholesterol measurement (mass/volume)Ordered By: Dr. Alonso on 08-17-2022 Cholesterol in LDL [Mass/Vol] 67 mg/dL 0-130 [facility] Serum or plasma urea nitroge n measurement (mass/volume)Ordered By: Dr. Alonso on 08-17-2022 Urea nitrogen [Mass/Vol] 20 mg/dL 7-18 [facility] Thin prep Papanicolaou smear with manual screeningOrdered By: Dr. Alonso on 08-17-2022 Thin prep Papanicolaou smear with manual screening 31 U/L 15-37 [facility] Thin prep Papanicolaou smear with manual screening 6 5-15 [facility] Thin prep Papanicolaou smear with manual screening 16.0 mg/L NO RANGE EST. [facility] Urine creatinine measurement (mass/volume)Ordered By: Dr. Alonso on 08-17-2022 Creatinine (U) [Mass/Vol] 66.40 mg/dL NO RANGE EST. [facility] Whole blood hemoglobin A1c/t otal hemoglobin ratio (mass fraction)Ordered By: Dr. Alonso on 08-17-2022 HbA1c (Bld) [Mass fraction] 6.6 % 3.8-5.6 [facility] Comment on above: Normal < 5.7 % Predi abetic 5.7 - 6.4 % Diabetic >or= 6.5 % Please note range changes. Basophil percentageon 2021 Basophil percentage 0-5 SEEN /hpf [facility] Work Phone: Bilirubin [Mass/Vol] 0.40 mg/dL 0.20-1.00 [facility] Work Phone: Comment on above: For patients on eltr ombopag therapy, use of [employer] TBIL is not recommended. Chloride [Moles/Vol] 111 mmol/L 98-107 [facility] Work Phone: Cholesterol [Mass/Vol] 146 mg/dL <200 [facility] Work Phone: Comment on above: <200 mg/dL Desirable 200-240 mg/dL Borderline >240 mg/dL High Risk Glucose [Mass/Vol] 113 mg/dL 74-106 [facility] Work Phone: Comment on above: Fasting Glucose resu lt from 100 to 125 mg/dL suggests IMPAIRED HOMEOSTASIS per A.D.A. criteria. Potassium [Moles/Vol] 4.3 mmol/L 3.5-5.1 [facility] Work Phone: Protein [Mass/Vol] 6.8 g/dL 6.4-8.2 [facility] Work Phone: Sodium [Moles/Vol] 141 mmol/L 136-145 [facility] Work Phone: Triglyceride [Mass/Vol] 83 mg/dL [facility] Work Phone: Comment on above: The drugs N-Acetylcy steine and Metamizole may falsely depress this assay.Serum Triglycerides Reference Interval Normal <150 mg/dL Borderline high 150 - 199 mg/dL High 200 - 499 mg/dL Very High > or = 500 mg/dL Bilirubin Test strip Ql (U)o n 01-15-2022 Bilirubin Ql (U) Negative Negative [facility] Work Phone: Ketones Test strip Ql (U)on 01-15-2022 Ketones Ql (U) Negative Negative [facility] Work Phone: Laboratory - Chemistry and C hemistry - challengeon 01-15-2022 ALP [Catalytic activity/Vol] 66 U/L 45-117 [facility] Work Phone: ALT [Catalytic activity/Vol] 35 U/L 13-56 [facility] Work Phone: CO2 [Moles/Vol] 26.0 mmol/L 21.0-32.0 [facility] Work Phone: Globulin (S) [Mass/Vol] 3.6 g/dL 2.2-4.2 [facility] Work Phone: Urea nitrogen/Creatinine [Mass ratio] 24.6 mg/mg 10-20 [facility] Work Phone: Mucus LM Ql (Urine sed)on Mucus Ql (Urine sed) 1+ /hpf [facility] Work Phone: Nitrite Test strip Ql (U)on 01-15-2022 Nitrite Ql (U) Negative Negative [facility] Work Phone: No Panel Informationon 01-15 Estimated GFR (MDRD) Amer 100 mL/min >60 [facility] Work Phone: Comment on above: GFR Calc Estimated GFR (MDRD) Non-Af Amer 83 mL/min >60 [facility] Work Phone: Comment on above: Non- GFR Calc Urine Microalbumin/Creatinin e Ratio 15.7 mg/g CRE <30 [facility] Work Phone: Vitamin D 25-Hydroxy 58.3 ng/mL [facility] Work Phone: Comment on above: Vitamin D 25(OH) Sta tus Range Deficiency <20 ng/mL (50nmol/L) Insufficiency 20 - 30 ng/mL (50 - 75 nmol/L) Sufficiency 30 - 100 ng/mL (75 - 250 nmol/L) Toxicity >100 ng/mL (>250 nmol/L) Protein Test strip Ql (U)on 01-15-2022 Protein Ql (U) 15 mg/dl Negative [facility] Work Phone: Serum or plasma albumin giovanni urement (mass/volume)on 01-15-2022 Albumin [Mass/Vol] 3.2 g/dL 3.2-5.0 [facility] Work Phone: Serum or plasma albumin/glob ulin mass ratioon 01-15-2022 Albumin/Globulin [Mass ratio] 0.9 {ratio} 0.9-2.4 [facility] Work Phone: Serum or plasma calcium giovanni urement (mass/volume)on 01-15-2022 Calcium [Mass/Vol] 9.4 mg/dL 8.5-10.1 [facility] Work Phone: Serum or plasma cholesterol in HDL measurement (mass/volume)on 01-15-2022 Cholesterol in HDL [Mass/Vol] 68 mg/dL [facility] Work Phone: Comment on above: The drugs N-Acetylcy steine and Metamizole may falsely depress this assay. Reference Range HDL <40 mg/dL Low HDL Cholesterol HDL >or= 60 mg/dL High HDL Cholesterol Serum or plasma cholesterol in VLDL measurement (mass/volume)on 01-15-2022 Cholesterol in VLDL [Mass/Vol] 17 mg/dL 5-40 [facility] Work Phone: Serum or plasma creatinine m easurement (mass/volume)on 01-15-2022 Creatinine [Mass/Vol] 0.73 mg/dL 0.55-1.02 [facility] Work Phone: Comment on above: The validity of the calculated GFR & GFRAA in patients over 70 years has not been determined. Clinical correlation is essential. Serum or plasma low density lipoprotein (LDL) cholesterol measurement (mass/volume)on 01-15-2022 Cholesterol in LDL [Mass/Vol] 61 mg/dL 0-130 [facility] Work Phone: Serum or plasma urea nitroge n measurement (mass/volume)on 01-15-2022 Urea nitrogen [Mass/Vol] 18 mg/dL 7-18 [facility] Work Phone: Squamous epithelial cells de tection in urine sediment by light microscopyon 01-15-2022 Epithelial cells.squamous LM Ql (Urine sed) 0-5 SEEN /hpf [facility] Work Phone: Thin prep Papanicolaou smear with manual screeningon 01-15-2022 Thin prep Papanicolaou smear with manual screening 30 U/L 15-37 [facility] Work Phone: Thin prep Papanicolaou smear with manual screening 4 5-15 [facility] Work Phone: Thin prep Papanicolaou smear with manual screening 34.4 mg/L NO RANGE EST. [facility] Work Phone: Urine blood detectionon 06-0 RBC Ql (U) 25 /ul Negative [facility] Work Phone: RBC Ql (U) 0-5 SEEN /hpf [facility] Work Phone: Urine clarityon 01-15-2022 Clarity (U) Clear Clear [facility] Work Phone: Urine color determinationon 01-15-2022 Color (U) Yellow Yellow [facility] Work Phone: Urine creatinine measurement (mass/volume)on 01-15-2022 Creatinine (U) [Mass/Vol] 219.00 mg/dL NO RANGE EST. [facility] Work Phone: Urine glucose detectionon Glucose Ql (U) Normal mg/dl Normal [facility] Work Phone: Urine leukocyte esterase det ection by dipstickon 01-15-2022 Leukocyte esterase Test strip Ql (U) 25 /ul Negative [facility] Work Phone: Urine pHon 01-15-2022 pH (U) 6.0 [pH] [facility] Work Phone: Urine sediment bacteria coun t by microscopy (number/high power field)on 01-15-2022 Bacteria LM.HPF (Urine sed) [#/Area] RARE /hpf None Seen [facility] Work Phone: Urine specific gravity measu rementon 01-15-2022 Specific gravity (U) [Rel density] 1.025 [facility] Work Phone: Urobilinogen Auto test strip Ql (U)on 01-15-2022 Urobilinogen Ql (U) Normal mg/dl Normal [facility] Work Phone: Whole blood hemoglobin A1c/t otal hemoglobin ratio (mass fraction)on 01-15-2022 HbA1c (Bld) [Mass fraction] 6.2 % 3.8-5.6 [facility] Work Phone: Comment on above: Normal < 5.7 % Predi abetic 5.7 - 6.4 % Diabetic >or= 6.5 % Please note range changes. Absolute lymphocyte counton 09-23-2021 Lymphocytes Auto (Unsp spec) [#/Vol] 1.64 10*3/uL 0.83-4.51 [facility] Work Phone: Basophil percentageon 2021 Basophils/100 WBC (Bld) 0.7 % 0-1 [facility] Work Phone: Bilirubin [Mass/Vol] 0.40 mg/dL 0.20-1.00 [facility] Work Phone: Comment on above: For patients on eltr ombopag therapy, use of [place] TBIL is not recommended. Chloride [Moles/Vol] 110 mmol/L 98-107 [facility] Work Phone: Cholesterol [Mass/Vol] 132 mg/dL <200 [facility] Work Phone: Comment on above: <200 mg/dL Desirable 200-240 mg/dL Borderline >240 mg/dL High Risk Eosinophils/100 WBC (Bld) 3.0 % 0-5 [facility] Work Phone: Glucose [Mass/Vol] 139 mg/dL 74-106 [facility] Work Phone: Comment on above: Fasting Glucose resu lt greater than or equal to 126 mg/dL suggests DIABETES MELLITUS per A.D.A. criteria. Neutrophils (Bld) [#/Vol] 4.8 10*3/uL 2.0-7.7 [facility] Work Phone: Neutrophils/100 WBC (Bld) 64.9 % 47-70 [facility] Work Phone: Potassium [Moles/Vol] 4.0 mmol/L 3.5-5.1 [facility] Work Phone: Protein [Mass/Vol] 7.0 g/dL 6.4-8.2 [facility] Work Phone: Sodium [Moles/Vol] 141 mmol/L 136-145 [facility] Work Phone: Triglyceride [Mass/Vol] 78 mg/dL [facility] Work Phone: Comment on above: The drugs N-Acetylcy steine and Metamizole may falsely depress this assay.Serum Triglycerides Reference Interval Normal <150 mg/dL Borderline high 150 - 199 mg/dL High 200 - 499 mg/dL Very High > or = 500 mg/dL WBC (Bld) [#/Vol] 7.5 10*3/uL 4.4-11.0 [facility] Work Phone: Blood erythrocytes count (nu mber/volume)on 09-23-2021 RBC (Bld) [#/Vol] 4.38 10*6/uL 4.2-5.4 [facility] Work Phone: Blood hemoglobin measurement (mass/volume)on 09-23-2021 Hemoglobin (Bld) [Mass/Vol] 13.8 g/dL 12.0-15.0 [facility] Work Phone: Blood lymphocytes/100 leukoc yteson 09-23-2021 Lymphocytes/100 WBC (Bld) 22.0 % 19-41 [facility] Work Phone: Blood monocytes/100 leukocyt eson 09-23-2021 Monocytes/100 WBC (Bld) 8.9 % 0-10 [facility] Work Phone: Blood platelet mean volumeon 09-23-2021 Platelet mean volume (Bld) [Entitic vol] 10.3 fL 6.2-12.0 [facility] Work Phone: Determination of erythrocyte mean corpuscular volume (MCV)on 09-23-2021 MCV (RBC) [Entitic vol] 95.7 fL 81-99 [facility] Work Phone: Hematocrit Auto (Bld) [Volum e fraction]on 09-23-2021 Hematocrit (Bld) [Volume fraction] 41.9 % 37-47 [facility] Work Phone: Laboratory - Chemistry and C hemistry - challengeon 09-23-2021 ALP [Catalytic activity/Vol] 77 U/L 45-117 [facility] Work Phone: ALT [Catalytic activity/Vol] 44 U/L 13-56 [facility] Work Phone: CO2 [Moles/Vol] 26.0 mmol/L 21.0-32.0 [facility] Work Phone: Globulin (S) [Mass/Vol] 3.9 g/dL 2.2-4.2 [facility] Work Phone: Urea nitrogen/Creatinine [Mass ratio] 22.2 mg/mg 10-20 [facility] Work Phone: Laboratory - Hematology and Cell countson 09-23-2021 Erythrocyte distribution width (RBC) [Entitic vol] 44.6 fL 35.1-43.9 [facility] Work Phone: Erythrocyte distribution width (RBC) [Ratio] 12.5 % 11.6-14.6 [facility] Work Phone: Immature granulocytes/100 WBC (Bld) 0.500 % 0.0-0.9 [facility] Work Phone: Comment on above: IG% - Immature Granu locytes (promyelocytes, myelocytes and metamyelocytes) > 1% indicates that a LEFT SHIFT is Present. MCH (RBC) [Entitic mass] 31.5 pg 27.0-32.0 [facility] Work Phone: Nucleated RBC/100 WBC (Bld) [Ratio] 0 % 0-5 [facility] Work Phone: MCHC Auto (RBC) [Mass/Vol]on 09-23-2021 MCHC (RBC) [Mass/Vol] 32.9 g/dL 32-36 [facility] Work Phone: No Panel Informationon 09-23 Estimated GFR (MDRD) Amer 95 mL/min >60 [facility] Work Phone: Comment on above: GFR Calc Estimated GFR (MDRD) Non-Af Amer 78 mL/min >60 [facility] Work Phone: Comment on above: Non- GFR Calc Urine Microalbumin/Creatinin e Ratio 22.5 mg/g CRE <30 [facility] Work Phone: Vitamin D 25-Hydroxy 61.8 ng/mL [facility] Work Phone: Comment on above: Vitamin D 25(OH) Sta tus Range Deficiency <20 ng/mL (50nmol/L) Insufficiency 20 - 30 ng/mL (50 - 75 nmol/L) Sufficiency 30 - 100 ng/mL (75 - 250 nmol/L) Toxicity >100 ng/mL (>250 nmol/L) Platelets bldon 09-23-2021 Platelets (Bld) [#/Vol] 195 10*3/uL 150-450 [facility] Work Phone: Serum or plasma albumin giovanni urement (mass/volume)on 09-23-2021 Albumin [Mass/Vol] 3.1 g/dL 3.2-5.0 [facility] Work Phone: Serum or plasma albumin/glob ulin mass ratioon 09-23-2021 Albumin/Globulin [Mass ratio] 0.8 {ratio} 0.9-2.4 [facility] Work Phone: Serum or plasma calcium giovanni urement (mass/volume)on 09-23-2021 Calcium [Mass/Vol] 9.4 mg/dL 8.5-10.1 [facility] Work Phone: Serum or plasma cholesterol in HDL measurement (mass/volume)on 02-09-2022 Cholesterol in HDL [Mass/Vol] 60 mg/dL [facility] Work Phone: Comment on above: The drugs N-Acetylcy steine and Metamizole may falsely depress this assay. Reference Range HDL <40 mg/dL Low HDL Cholesterol HDL >or= 60 mg/dL High HDL Cholesterol Serum or plasma cholesterol in VLDL measurement (mass/volume)on 09-23-2021 Cholesterol in VLDL [Mass/Vol] 16 mg/dL 5-40 [facility] Work Phone: Serum or plasma creatinine m easurement (mass/volume)on 09-23-2021 Creatinine [Mass/Vol] 0.77 mg/dL 0.55-1.02 [facility] Work Phone: Comment on above: The validity of the calculated GFR & GFRAA in patients over 70 years has not been determined. Clinical correlation is essential. Serum or plasma low density lipoprotein (LDL) cholesterol measurement (mass/volume)on 09-23-2021 Cholesterol in LDL [Mass/Vol] 56 mg/dL 0-130 [facility] Work Phone: Serum or plasma urea nitroge n measurement (mass/volume)on 09-23-2021 Urea nitrogen [Mass/Vol] 17 mg/dL 7-18 [facility] Work Phone: Thin prep Papanicolaou smear with manual screeningon 09-23-2021 Thin prep Papanicolaou smear with manual screening 39 U/L 15-37 [facility] Work Phone: Thin prep Papanicolaou smear with manual screening 5 5-15 [facility] Work Phone: Thin prep Papanicolaou smear with manual screening 32.9 mg/L NO RANGE EST. [facility] Work Phone: Urine creatinine measurement (mass/volume)on 09-23-2021 Creatinine (U) [Mass/Vol] 146.00 mg/dL NO RANGE EST. [facility] Work Phone: Whole blood hemoglobin A1c/t otal hemoglobin ratio (mass fraction)on 09-23-2021 HbA1c (Bld) [Mass fraction] 6.3 % 3.8-5.6 [facility] Work Phone: Comment on above: Normal < 5.7 % Predi abetic 5.7 - 6.4 % Diabetic >or= 6.5 % Please note range changes. Vital Signs Date Time Vital Sign Value Performing Clinician Facility 05-09-2025 14:49-0400 Body height 152.[address] Terrance Alonso MD Work Phone: [facility] 06-05-2024 10:09-0400 Body height 152.4 cm Tatiana Sutherland MD Work Phone: [facility] 06-05-2024 10:09-0400 Body mass index (BMI) [Ratio] 35.15 kg/m2 Tatiana Sutherland MD Work Phone: [facility] 06-05-2024 10:09-0400 Body weight 81.65 kg Tatiana Sutherland MD Work Phone: [facility] 06-05-2024 10:09-0400 Respiratory rate 16 /min Taitana Sutherland MD Work Phone: [facility] 04-10-2024 10:03-0400 Body height 152.4 cm Tatiana Sutherland MD Work Phone: [facility] 04-10-2024 10:03-0400 Body mass index (BMI) [Ratio] 35.15 kg/m2 Tatiana Sutherland MD Work Phone: [facility] 04-10-2024 10:03-0400 Body temperature 98.29 [degF] Tatiana Sutherland MD Work Phone: [facility] 04-10-2024 10:03-0400 Body weight 81.65 kg Tatiana Sutherland MD Work Phone: [facility] 03-13-2024 10:26-0400 Body height 152.4 cm Tatiana Sutherland MD Work Phone: [facility] 03-13-2024 10:26-0400 Body mass index (BMI) [Ratio] 38.28 kg/m2 Tatiana Sutherland MD Work Phone: [facility] 03-13-2024 10:26-0400 Body weight 88.91 kg Tatiana Sutherland MD Work Phone: [facility] 03-13-2024 10:26-0400 Respiratory rate 18 /min Tatiana Sutherland MD Work Phone: [facility] 02-10-2024 09:05-0400 Body height 152.4 cm Pacc 1 Work Phone: [facility] 02-10-2024 09:05-0400 Body mass index (BMI) [Ratio] 37.5 kg/m2 Pacc 1 Work Phone: [facility] 02-10-2024 09:05-0400 Body temperature 98.1 [degF] Pacc 1 Work Phone: [facility] 02-10-2024 09:05-0400 Body weight 87.09 kg Pacc 1 Work Phone: [facility] 02-10-2024 09:05-0400 Diastolic blood pressure 72 mm[Hg] Pacc 1 Work Phone: [facility] 02-10-2024 09:05-0400 Heart rate 58 /min Pacc 1 Work Phone: [facility] 02-10-2024 09:05-0400 Respiratory rate 14 /min Pacc 1 Work Phone: [facility] 02-10-2024 09:05-0400 SaO2% (BldA) [Mass fraction] 96 % Pacc 1 Work Phone: [facility] 02-10-2024 09:05-0400 Systolic blood pressure 130 mm[Hg] Pacc 1 Work Phone: [facility] 04-01-2023 13:25-0400 Body temperature 98.71 [degF] Tatiana Anguiano APRN.[employer] Work Phone: [facility] 04-01-2023 13:25-0400 Body weight 77.2 kg Tatiana Silvio SENIOR CLIENT ADVISOR.[employer] Work Phone: [facility] 04-01-2023 13:25-0400 Diastolic blood pressure 78 mm[Hg] Tatiana Silvio SENIOR CLIENT ADVISOR.[employer] Work Phone: [facility] 04-01-2023 13:25-0400 Heart rate 89 /min Tatiana Silvio SENIOR CLIENT ADVISOR.[employer] Work Phone: [facility] 04-01-2023 13:25-0400 Respiratory rate 18 /min Tatiana Silvio SENIOR CLIENT ADVISOR.[employer] Work Phone: [facility] 04-01-2023 13:25-0400 SaO2% (BldA) [Mass fraction] 93 % Tatiana Silvio SENIOR CLIENT ADVISOR.[employer] Work Phone: [facility] 04-01-2023 13:25-0400 Systolic blood pressure 122 mm[Hg] Tatiana Silvio SENIOR CLIENT ADVISOR.[employer] Work Phone: [facility] 03-27-2023 11:32-0400 Body temperature 98.01 [degF] Tatiana Silvio SENIOR CLIENT ADVISOR.[employer] Work Phone: [facility] 03-27-2023 11:32-0400 Body weight 76.75 kg Tatiana Silvio SENIOR CLIENT ADVISOR.[employer] Work Phone: [facility] 03-27-2023 11:32-0400 Diastolic blood pressure 80 mm[Hg] Tatiana Silvio SENIOR CLIENT ADVISOR.[employer] Work Phone: [facility] 03-27-2023 11:32-0400 Heart rate 78 /min Tatiana Silvio SENIOR CLIENT ADVISOR.[employer] Work Phone: [facility] 03-27-2023 11:32-0400 Respiratory rate 20 /min Tatiana Silvio SENIOR CLIENT ADVISOR.[employer] Work Phone: [facility] 03-27-2023 11:32-0400 SaO2% (BldA) [Mass fraction] 91 % Tatiana Silvio SENIOR CLIENT ADVISOR.[employer] Work Phone: [facility] 03-27-2023 11:32-0400 Systolic blood pressure 124 mm[Hg] Tatiana Silvio SENIOR CLIENT ADVISOR.[employer] Work Phone: [facility] 01-12-2023 13:05-0400 Body temperature 97.7 [degF] DR ALEX LANCE MD [facility] 01-12-2023 13:05-0400 Diastolic Blood Pressure Non-Invasive [address] ALEX LANCE MD [facility] 01-12-2023 13:05-0400 Heart rate 52 /min DR ALEX LANCE MD [facility] 01-12-2023 13:05-0400 Reason For Taking VItal Signs DR ALEX LANCE MD [facility] 01-12-2023 13:05-0400 Systolic Blood Pressure Non-Invasive [address] ALEX LANCE MD [facility] 01-12-2023 09:54-0400 Body temperature 98.06 [degF] DR ALEX LANCE MD [facility] 01-12-2023 09:54-0400 Diastolic Blood Pressure Non-Invasive [address] ALEX LANCE MD [facility] 01-12-2023 09:54-0400 Heart rate 52 /min DR ALEX LANCE MD [facility] 01-12-2023 09:54-0400 Systolic Blood Pressure Non-Invasive [address] ALEX LANCE MD [facility] 01-12-2023 08:48-0400 Heart rate 52 /min DR ALEX LANCE MD [facility] 01-12-2023 06:31-0400 Body temperature 97.88 [degF] DR ALEX LANCE MD [facility] 01-12-2023 06:31-0400 Diastolic Blood Pressure Non-Invasive [address] ALEX LANCE MD [facility] 01-12-2023 06:31-0400 Respiratory rate 16 /min DR ALEX LANCE MD [facility] 01-12-2023 06:31-0400 Systolic Blood Pressure Non-Invasive [address] ALEX LANCE MD [facility] 01-12-2023 03:56-0400 Respiratory rate 16 /min DR ALEX LANCE MD [facility] 01-11-2023 23:13-0400 Respiratory rate 16 /min DR ALEX LANCE MD [facility] 01-11-2023 19:39-0400 Heart rate 66 /min DR ALEX LANCE MD [facility] 01-11-2023 19:05-0400 Heart rate 75 /min DR ALEX LANCE MD [facility] 01-11-2023 16:50-0400 Heart rate 64 /min DR ALEX LANCE MD [facility] 01-11-2023 11:42-0400 Body height 152.[address] ALEX LANCE MD [facility] 01-11-2023 11:42-0400 Body weight 77.[address] ALEX LANCE MD [facility] 01-11-2023 11:42-0400 Body weight 33.37 kg/m2 DR ALEX LANCE MD [facility] 01-11-2023 10:12-0400 Body temperature 96.8 [degF] DR ALEX LANCE MD [facility] 01-11-2023 10:10-0400 Respiratory Rate - Anes 0 br/min DR ALEX LANCE MD [facility] 01-11-2023 10:05-0400 Respiratory Rate - Anes 15 br/min DR ALEX LANCE MD [facility] 01-11-2023 07:16-0400 Body height 152.[address] ALEX LANCE MD [facility] 01-11-2023 07:16-0400 Body temperature 96.8 [degF] DR ALEX LANCE MD [facility] 01-11-2023 07:16-0400 Body weight 77.[address] ALEX LANCE MD [facility] 12-20-2022 11:10-[address] ALEX LANCE MD [facility] 12-20-2022 11:10-[address] ALEX Olson [facility] 12-20-2022 11:10-0400 Body height 152.[address] ALEX LANCE MD [facility] 12-20-2022 11:10-0400 Body weight 77.[address] ALEX LANCE MD [facility] 12-20-2022 11:10-0400 Body weight 33.28 kg/m2 DR ALEX LANCE MD [facility] 12-20-2022 11:10-0400 Diastolic Blood Pressure Non-Invasive [address] ALXE LANCE MD [facility] 12-20-2022 11:10-0400 Heart rate 60 /min DR ALEX LANCE MD [facility] 12-20-2022 11:10-0400 Respiratory rate 18 /min DR ALEX LANCE MD [facility] 12-20-2022 11:10-0400 Systolic Blood Pressure Non-Invasive [address] ALEX LANCE MD [facility] 08-26-2022 20:12-0500 Diastolic blood pressure 68 mm[Hg] [facility] 08-26-2022 20:12-0500 Heart rate 67 /min [facility] 08-26-2022 20:12-0500 Respiratory rate 15 /min [facility] 08-26-2022 20:12-0500 SaO2% (BldA) [Mass fraction] 95 % [facility] 08-26-2022 20:12-0500 Systolic blood pressure 177 mm[Hg] [facility] 08-26-2022 17:12-0500 Body height 152.4 cm [facility] 08-26-2022 17:12-0500 Body mass index (BMI) [Ratio] 36.5 kg/m2 [facility] 08-26-2022 17:12-0500 Body temperature 96.8 [degF] [facility] 08-26-2022 17:12-0500 Body weight 84.82 kg [facility] 11-10-2021 10:38-0400 Body temperature 98.29 [degF] Rayna RAYMOND-Tacho Work Phone: [facility] 11-10-2021 10:38-0400 Body weight 85.46 kg Rayna RAYMOND-Tacho Work Phone: [facility] 11-10-2021 10:38-0400 Diastolic blood pressure 78 mm[Hg] Rayna RAYMOND-C Work Phone: [facility] 11-10-2021 10:38-0400 Heart rate 64 /min Rayna Athy PA-C Work Phone: [facility] 11-10-2021 10:38-0400 Respiratory rate 16 /min Rayna Athy PA-C Work Phone: [facility] 11-10-2021 10:38-0400 SaO2% (BldA) [Mass fraction] 97 % Rayna Athy PA-C Work Phone: [facility] 11-10-2021 10:38-0400 Systolic blood pressure 130 mm[Hg] Rayna Athy PA-C Work Phone: [facility] Encounters Encounter Date Encounter Type Care Provider Facility Start: 06-16-2025 End: 06-16-2025 Emergency department patient visit Patrick Tejeda Facility:[facility] Start: 05-09-2025 End: 05-09-[address] Terrance Alonso MD Work Phone: -Outpatient Bone Densitometry Start: 05-09-2025 End: 05-09-2025 Patient encounter procedure Murray Hassan CROCHETER-C -Outpatient Bone Densitometry Work Phone: Start: 05-09-2025 End: 05-09-2025 ambulatory Murray Mo CROCHETER Facility:[facility] Start: 04-30-2025 End: 04-30-[address] Terrance Alonso MD Work Phone: -Laboratory [facility] Start: 04-30-2025 End: 04-30-[address] Terrance Alonso MD -Laboratory [facility] Start: 04-30-2025 End: 04-30-2025 ambulatory Terrance Alonso Facility:[facility] Start: 01-09-2025 End: 01-09-[address] Terrance Alonso MD Work Phone: [facility] Work Phone: Start: 01-09-2025 End: 01-09-[address] Terrance Alonso MD -Laboratory [facility] Start: 01-09-2025 End: 01-09-2025 ambulatory Terrance Alonso Facility:[facility] Start: 10-02-2024 End: 10-02-[address] Terrance Alonso MD -Laboratory [facility] Start: 10-02-2024 End: 10-02-2024 ambulatory Terrance Alonso Facility:[facility] Start: 09-07-2024 End: 09-07-2024 ambulatory Terrance Alonso Facility:[facility] Start: 07-26-2024 End: 07-26-2024 ambulatory [facility] Facility:[facility] Start: 07-25-2024 End: 07-25-2024 ambulatory [facility] Facility: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) Start: 06-05-2024 End: 06-05-2024 ambulatory [facility] Facility:[facility] Start: 05-21-2024 End: 05-21-2024 ambulatory TERRANCE ALONSO Facility:[facility] Comment on above: Glenohumeral arthrit is, right (Primary Dx) Start: 05-14-2024 End: 05-14-2024 ambulatory Christiano Villafana PT Work Phone: [facility] Comment on above: Glenohumeral arthrit is, right (Primary Dx) Start: 05-07-2024 End: 05-07-2024 ambulatory Christiano Villafana PT Work Phone: [facility] Comment on above: Glenohumeral arthrit is, right (Primary Dx) Start: 04-26-2024 End: 04-26-2024 ambulatory Christiano Villafana PT Work Phone: [facility] Comment on above: Glenohumeral arthrit is, right (Primary Dx) Start: 04-10-2024 End: 04-10-2024 Patient encounter procedure Tatiana Sutherland MD Work Phone: [facility] Comment on above: 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); Acute pain of right shoulder Start: 04-10-2024 End: 04-10-2024 ambulatory TATIANA SUTHERLAND Facility:[facility] Start: 03-13-2024 End: 03-13-2024 Patient encounter procedure Tatiana Sutherland MD Work Phone: [facility] Comment on above: 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); Acute pain of right shoulder Start: 03-13-2024 End: 03-13-2024 ambulatory TERRANCE ALONSO Facility:[facility] Start: 03-09-2024 End: 03-09-2024 ambulatory Christiano Villafana PT Work Phone: [facility] Comment on above: Glenohumeral arthrit is, right (Primary Dx) Start: 03-02-2024 End: 03-02-2024 Orders Only Tatiana Sutherland MD Work Phone: Orthopedics Comment on above: Chronic right should er pain (Primary Dx) 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); S/P reverse total shoulder arthroplasty, right Chronic right should er pain [M25.511, G89.29] Start: 02-27-2024 End: 02-27-2024 ambulatory Christiano Villafana PT Work Phone: [facility] Comment on above: Glenohumeral arthrit is, right Start: 02-24-2024 Orders Only Tatiana Sutherland MD Work Phone: Orthopedics Comment on above: Chronic right should er pain (Primary Dx) Start: 02-20-2024 End: 02-21-2024 ambulatory TERRANCE ALONSO Facility:[facility] Start: 02-17-2024 End: 02-17-2024 ambulatory TERRANCE ALONSO Facility:[facility] Start: 02-17-2024 End: 02-17-2024 Subsequent hospital visit by physician Card Injection [facility] Comment on above: Pre-operative examin ation [Z01.818] Start: 02-14-2024 ambulatory NESTOR RUBY Facility: [facility] Start: 02-14-2024 End: 02-14-2024 Preprocedural examination done Card Injection [facility] Start: 02-14-2024 End: 02-14-2024 Subsequent hospital visit by physician Card Injection [facility] Comment on above: Pre-operative examin ation [Z01.818] Start: 02-13-2024 End: 02-13-2024 ambulatory NESTOR RUBY Facility:[facility] Start: 02-13-2024 Encounter for other preprocedural examination TERRANCE ALONSO [facility] Start: 02-10-2024 End: 02-10-2024 PAT [facility] Work Phone: Pre Anesthesia Comment on above: Pre-operative examin ation (Primary Dx); Abnormal electrocardiogram; Essential (primary) hypertension; History of tobacco use; Chronic obstructive pulmonary disease, unspecified COPD type ([facility]); Depressive disorder; Mixed hyperlipidemia; RBBB; Abnormal EKG; Class 2 severe obesity due to excess calories with serious comorbidity and body mass index (BMI) of 37.0 to 37.9 in adult ([facility]); JEANNIE (obstructive sleep apnea); Type 2 diabetes mellitus without complication, without long-term current use of insulin ([facility]) Request Outside [facility] Records Start: 02-10-2024 End: 02-10-2024 Preprocedural examination done [facility] Work Phone: [facility] Work Phone: Start: 02-03-2024 Telephone encounter Tatiana Sutherland MD Work Phone: Orthopaedics Comment on above: Appointment (Post-op PT) Start: 01-27-2024 Orders Only Tatiana Sutherland MD Work Phone: Orthopaedics Comment on above: Glenohumeral arthrit is, right (Primary Dx); Complete tear of right rotator cuff, unspecified whether traumatic Start: 01-20-2024 End: 01-20-2024 ambulatory TATIANA SUTHERLAND Facility:[facility] Start: 01-20-2024 End: 01-20-2024 Patient encounter procedure Tatiana Sutherland MD Work Phone: Orthopedics Comment on above: Complete tear of rig ht rotator cuff, unspecified whether traumatic (Primary Dx); Glenohumeral arthritis, right Start: 12-23-2023 End: 12-23-2023 ambulatory ORIN CASAS Facility:[facility] Start: 12-23-2023 End: 12-23-2023 Patient encounter procedure Orin Casas PA-C Work Phone: Orthopaedics Comment on above: Complete tear of rig ht rotator cuff, unspecified whether traumatic (Primary Dx); Glenohumeral arthritis, right Start: 11-18-2023 End: 11-18-[address] [facility] Work Phone: Start: 11-18-2023 End: 11-18-2023 Patient encounter procedure [facility] Start: 08-16-2023 End: 08-16-[address] [facility] Work Phone: Start: 08-16-2023 End: 08-16-2023 Patient encounter procedure [facility] Start: 06-06-2023 End: 06-06-[address] [facility] Work Phone: Start: 06-06-2023 End: 06-06-[address] [facility]-Cat Scan, [facility] Work Phone: Start: 04-05-2023 End: 04-05-2023 [facility] Work [facility]: Start: 04-01-2023 End: 04-01-2023 Subsequent hospital visit by physician [facility] Work Phone: Radiology Comment on above: Acute cough [R05.1] Start: 04-01-2023 End: 04-01-2023 Patient encounter procedure Tatiana Anguiano APRN.[employer] Work Phone: [facility] Comment on above: COPD (chronic obstru ctive pulmonary disease) with acute bronchitis (HCC) (Primary Dx); Acute cough; Wheeze Start: 03-27-2023 End: 03-27-2023 Patient encounter procedure Tatiana Anguiano [facility] Work Phone: [facility] Comment on above: COPD with exacerbati on (HCC) (Primary Dx) Start: 03-01-2023 End: 03-01-2023 Patient encounter procedure [facility] Start: 01-11-2023 End: 01-12-[address] ALEX LANCE MD Facility:B Start: 01-11-2023 End: 01-12-[address] ALEX LANCE MD [facility] Start: 12-20-2022 End: 12-21-[address] ALEX LANCE MD Facility:B Start: 12-20-2022 End: 12-20-[address] ALEX LANCE MD [facility] Start: 12-16-2022 End: 12-16-[address] [facility] Work Phone: Start: 12-16-2022 End: 12-16-2022 Patient encounter procedure [facility] Start: 11-12-2022 End: 11-12-[address] [facility] Work Phone: Start: 11-12-2022 End: 11-12-2022 Patient encounter procedure [facility] Start: 10-11-2022 End: 10-11-[address] [facility] Work Phone: Start: 10-11-2022 End: 10-11-[address] [facility], [facility] Start: 09-02-2022 End: 09-02-[address] [facility] Work Phone: Start: 09-02-2022 End: 09-02-2022 Patient encounter procedure [facility] Start: 08-26-2022 End: 08-26-2022 Emergency department patient visit [facility] Start: 08-26-2022 End: 08-26-[address] [facility] Work Phone: Start: 08-26-2022 End: 08-26-2022 Patient encounter procedure [facility] Start: 08-17-2022 End: 08-17-[address] [facility] Work Phone: Start: 08-17-2022 End: 08-17-2022 Patient encounter procedure [facility] Start: 06-04-2022 End: 06-04-[address] [facility] Work Phone: Start: 06-04-2022 End: 06-04-[address] [facility]Cat Scan, [facility] Start: 01-15-2022 End: 01-15-2022 Patient encounter procedure [facility] Start: 11-10-2021 End: 11-10-2021 Patient encounter procedure Rayna Birch PA-C Work Phone: [facility] Comment on above: Infected cat bite, i nitial encounter (Primary Dx) Start: 09-23-2021 End: 09-23-2021 Patient encounter procedure [facility] Start: 10-31-2020 End: 10-31-2020 Patient encounter procedure TERRANCE ALONOS [facility] Start: 10-10-2020 End: 10-10-2020 Patient encounter procedure PASCUAL SKY [facility] Start: 04-03-[address] [facility] Start: 01-11-2020 Patient encounter procedure CYNTHIA KEYES [facility] Procedures Date Procedure Procedure Detail Performing Clinician Start: 05-09-2025 Dual energy X-ray absorptiometry Dr. Rodríguez Alonso MD Work Phone: Start: 04-30-[address] Terrance Alonso MD Work Phone: Comment on above: Deficiency: <3.4 Marginal: 3.4 - 5.1 Bibiana quate: >5.1 Start: 04-30-2025 Vitamin D, 25-hydroxy measurement Dr. Thi Alonso MD Work Phone: Comment on above: Vitamin D StatusDeficiency: <20 ng/mL (5 0nmol/L)Insufficiency: 20-30 ng/mL (50-75 nmol/L)Sufficiency: 30-100 ng/mL (75-250 nmol/L)Toxicity: >100 ng/mL (>250 nmol/L) Start: 01-09-[address] Terrance Alonso MD Work Phone: Comment on above: Deficiency: <3.4 Marginal: 3.4 - 5.1 Bibiana quate: >5.1Performed at: [employer] [id number] Director: Esther Prakash MD, Phone: [phone] Start: 01-09-2025 Vitamin D, 25-hydroxy measurement Dr. Thi Alonso MD Work Phone: Comment on above: Vitamin D StatusDeficiency: <20 ng/mL (5 0nmol/L)Insufficiency: 20-30 ng/mL (50-75 nmol/L)Sufficiency: 30-100 ng/mL (75-250 nmol/L)Toxicity: >100 ng/mL (>250 nmol/L) Start: 10-02-2024 Measurement of renal function Dr. Terrance polanco MD Work Phone: Comment on above: GFR Calc Start: 10-02-[address] Terrance Alonso MD Work Phone: Comment on above: Deficiency: <3.4 Marginal: 3.4 - 5.1 Bibiana quate: >5.1Performed at: [employer] [id number] Director: Esther Prakash MD, Phone: [phone] Start: 10-02-2024 Vitamin D, 25-hydroxy measurement Dr. Thi Alonso MD Work Phone: Comment on above: Vitamin D 25(OH) Status Range Deficiency <20 ng/mL (50nmol/L) Insufficiency 20 - 30 ng/mL (50 - 75 nmol/L) Sufficiency 30 - 100 ng/mL (75 - 250 nmol/L) Toxicity >100 ng/mL (>250 nmol/L) Start: 06-05-2024 Follow-up visit Follow Up TATIANA SUTHERLAND Start: 03-02-2024 Radex shoulder complete minimum 2 views Jens Acevedo PA-C Work Phone: Start: 02-17-2024 Tc99m tetrofosmin Nestor Ruby SENIOR CLIENT ADVISOR.[employer] Work Phone: Start: 02-10-2024 Ecg routine ecg w/least 12 lds i&r only [facility] Provider Start: 06-06-2023 CT of chest Start: 04-05-2023 Investigation of transfusion reaction Start: 04-05-2023 Respiratory microbial culture Start: 04-01-2023 Radiologic exam chest 2 views Tatiana florez SENIOR CLIENT ADVISOR.[employer] Work Phone: Start: 01-11-2023 Repair of joint of left hip DR ALEX LOERA MD Start: 10-11-2022 Ultrasonography of abdomen Start: 09-02-2022 Plain chest X-ray Start: 08-26-2022 Computed tomography of abdomen and pelvis with intravenous contrast Start: 06-04-2022 CT of chest Start: 01-18-[address] ALEX LANCE MD Comment on above: right Start: 03-29-[address] ALEX LANCE MD Comment on above: X2 Start: 08-15-[address] ALEX LANCE MD Start: 08-15-[address] ALEX LANCE MD Comment on above: RIGHT Start: 08-15-[address] ALEX LANCE MD Arthroscopy of knee DR DAWN LANCE MD Comment on above: right x3 Cholecystectomy DR ALEX LOERA MD Colonoscopy DR ALEX Calabrese MD Decompression of median nerve DR ALEX LANCE MD Comment on above: RIGHT AND LEFT Dilation and curettage DR JOSE JOYA Entire ankle region (body structure) DR ALEX LANCE MD Comment on above: left Esophagogastroduodenoscopy D R ALEX LANCE MD ft (qualifier value) DR HAO LANCE MD Comment on above: neuromas and bunionectomy BILATERAL Plan of Treatment Date Care Activity Detail Author Start: 11-11-2031 Urine microalbumin profile [facility] Start: 05-09-2025 Dual energy X-ray absorptiometry Dexa Bone Density/Append [facility] Start: 05-09-2025 Patient encounter procedure Registered Clinical -Outpatient Bone Densitometry Work Phone: Start: 08-19-2024 Hemoglobin A1c measurement HbA1C [facility] Start: 05-22-2024 End: 05-22-2024 Patient encounter procedure 05/22/2024 9:45 AM EDT Office Visit [facility] [address] [place] [address] Tatiana Sutherland MD [address] [place], [place] [id number] right RSA SX:02-20-24 [facility] Comment on above: right RSA SX:02-20-24 Start: 05-21-2024 End: 05-21-2024 ambulatory 05/21/2024 7:00 AM EDT OT/PT/Speech Visit [facility] [address] [place], [place] [address] Christiano Villafana, PT [address] [place] [address] M19.011 (ICD-10-CM) - Glenohumeral arthritis, right [facility] Comment on above: M19.011 (ICD-10-CM) - Glenohumeral arthr itis, right Start: 05-14-2024 End: 05-14-2024 ambulatory 05/14/2024 7:00 AM EDT OT/PT/Speech Visit [facility] [address] [place] [address] Christiano Villafana, PT [address] [place] [address] M19.011 (ICD-10-CM) - Glenohumeral arthritis, right [facility] Comment on above: M19.011 (ICD-10-CM) - Glenohumeral arthr itis, right Start: 05-07-2024 End: 05-07-2024 ambulatory 05/07/2024 7:00 AM EDT OT/PT/Speech Visit [facility] [address] [place] [address] Christiano Villafana, PT [address] [place] [address] M19.011 (ICD-10-CM) - Glenohumeral arthritis, right [facility] Comment on above: M19.011 (ICD-10-CM) - Glenohumeral arthr itis, right Start: 04-30-2024 End: 04-30-2024 ambulatory 04/30/2024 7:00 AM EDT OT/PT/Speech Visit [facility] [address] [place] [address] Christiano Villafana, PT [address] [place] [address] M19.011 (ICD-10-CM) - Glenohumeral arthritis, right [facility] Comment on above: M19.011 (ICD-10-CM) - Glenohumeral arthr itis, right Start: 04-26-2024 End: 04-26-2024 ambulatory 04/26/2024 8:30 AM EDT OT/PT/Speech Visit [facility] [address] [place] [address] Christiano Villafana, PT [address] [facility] [place] [id number] shoulder pain [facility] Comment on above: shoulder pain Start: 04-15-2024 Covid-19 Vaccine ( season) Covid-19 Vaccine () [facility] Start: 04-15-2024 Covid-19 Vaccine () Covid-19 Vaccine () [facility] Start: 04-15-2024 Influenza vaccination Influenza Vaccine (#1) [facility] Start: 04-10-2024 End: 04-10-2024 Patient encounter procedure 04/10/2024 10:15 AM EDT Office Visit [facility] [address] [place] [address] Tatiana Sutherland MD [address] [place], [place] [id number] Increased pain after PT, right RSA 02-20-24 [facility] Comment on above: Increased pain after PT, right RSA Start: 04-03-2024 End: 04-03-2024 ambulatory 04/03/2024 7:45 AM EDT OT/PT/Speech Visit [facility] [address] [place] [address] Christiano Villafana, PT [address] [facility] [place] [id number] Glenohumeral arthritis, right [M19.011] [facility] Comment on above: Glenohumeral arthritis, right [M19.011] Start: 03-30-2024 End: 03-30-2024 Patient encounter procedure Radiology Comment on above: R shoulder 4 week follow up S/P Right reverse total shoulder arthroplasty 02-20-2024 Start: 03-19-2024 End: 03-19-2024 ambulatory 03/19/2024 7:45 AM EDT OT/PT/Speech Visit [facility] [address] [place] [address] Christiano Villafana, PT [address] [facility] [address] Glenohumeral arthritis, right [M19.011] [facility] Comment on above: Glenohumeral arthritis, right [M19.011] Start: 03-13-2024 End: 03-13-2024 Patient encounter procedure 03/13/2024 11:15 AM EDT Office Visit [facility] [address] [place], [place] [address] Tatiana Sutherland MD [address] [place], [place] [id number] Increased pain after PT, right RSA 02-20-24 [facility] Comment on above: Increased pain after PT, right RSA Start: 03-13-2024 End: 03-13-2024 ambulatory 03/13/2024 7:45 AM EDT OT/PT/Speech Visit [facility] [address] [place] [address] Christiano Villafana, PT [address] [place] [address] Glenohumeral arthritis, right [M19.011] [facility] Comment on above: Glenohumeral arthritis, right [M19.011] Start: 03-09-2024 End: 03-09-2024 ambulatory 03/09/2024 12:00 PM EDT OT/PT/Speech Visit [facility] [address] [place] [address] Christiano Villafana, PT [address] [facility] [place], [place] [address] Glenohumeral arthritis, right [M19.011] [facility] Comment on above: Glenohumeral arthritis, right [M19.011] Start: 03-02-2024 End: 03-02-2024 Patient encounter procedure Orthopedics Comment on above: S/P Right reverse total shoulder arthrop lasty 02-20-2024 R shoulder Start: 02-27-2024 End: 02-27-2024 ambulatory 02/27/2024 3:30 PM EDT OT/PT/Speech Visit [facility] [address] [place] [place] [address] Christiano Villafana, PT [address] [place] [address] Glenohumeral arthritis, right [M19.011] [facility] Comment on above: Glenohumeral arthritis, right [M19.011] Start: 02-20-2024 End: 02-20-2024 Admission to same day surgery center 02/20/2024 12:58 PM EDT - 02/20/2024 2:50 PM EDT Surgery [facility] [address] [place] [address] Tatiana Sutherland MD [address] [place] [address] REVERSE TOTAL SHOULDER ARTHROPLASTY [facility] Comment on above: REVERSE TOTAL SHOULDER ARTHROPLASTY Start: 02-20-2024 End: 02-20-2024 Arthroplasty glenohumeral joint total shoulder REVERSE TOTAL SHOULDER ARTHROPLASTY Glenohumeral arthritis, right Complete tear of right rotator cuff, unspecified whether traumatic 02/20/2024 12:58 PM EDT ME OR Start: 02-20-2024 Subsequent hospital visit by physician 02/20/2024 12:58 PM EDT Hospital Encounter [facility] [address] [place] [address] Tatiana Sutherland MD [address] [place] [address] Glenohumeral arthritis, right [M19.011] [facility] Comment on above: Glenohumeral arthritis, right [M19.011] Start: 02-20-2024 End: 02-20-2024 Admission to same day surgery center 02/20/2024 11:09 AM EDT - 02/20/2024 1:01 PM EDT Surgery [facility] [address] [place] [address] Tatiana Sutherland MD [address] [place] [address] REVERSE TOTAL SHOULDER ARTHROPLASTY [facility] Comment on above: REVERSE TOTAL SHOULDER ARTHROPLASTY Start: 02-20-2024 End: 02-20-2024 Arthroplasty glenohumeral joint total shoulder REVERSE TOTAL SHOULDER ARTHROPLASTY Glenohumeral arthritis, right Complete tear of right rotator cuff, unspecified whether traumatic 02/20/2024 11:09 AM EDT ME OR Start: 02-20-2024 Subsequent hospital visit by physician 02/20/2024 11:09 AM EDT Hospital Encounter [facility] [address] [place] [address] Tatiana Sutherland MD [address] [place] [address] Glenohumeral arthritis, right [M19.011] [facility] Comment on above: Glenohumeral arthritis, right [M19.011] Start: 02-20-2024 End: 02-20-2024 Admission to same day surgery center 02/20/2024 9:12 AM EDT - 02/20/2024 11:04 AM EDT Surgery [facility] [address] [place] [address] Tatiana Sutherland MD [address] [place] [address] REVERSE TOTAL SHOULDER ARTHROPLASTY [facility] Comment on above: REVERSE TOTAL SHOULDER ARTHROPLASTY Start: 02-20-2024 End: 02-20-2024 Arthroplasty glenohumeral joint total shoulder REVERSE TOTAL SHOULDER ARTHROPLASTY Glenohumeral arthritis, right Complete tear of right rotator cuff, unspecified whether traumatic 02/20/2024 9:12 AM EDT ME OR Start: 02-20-2024 Subsequent hospital visit by physician 02/20/2024 9:12 AM EDT Hospital Encounter [facility] [address] [place] [address] Tatiana Sutherland MD [address] [place] [address] Glenohumeral arthritis, right [M19.011] [facility] Comment on above: Glenohumeral arthritis, right [M19.011] Start: 02-20-2024 End: 02-20-2024 Admission to same day surgery center 02/20/2024 7:30 AM EDT - 02/20/2024 9:12 AM EDT Surgery [facility] [address] [place] [address] Tatiana Sutherland MD [address] [place] [address] REVERSE TOTAL SHOULDER ARTHROPLASTY [facility] Comment on above: REVERSE TOTAL SHOULDER ARTHROPLASTY Start: 02-20-2024 End: 02-20-2024 Arthroplasty glenohumeral joint total shoulder REVERSE TOTAL SHOULDER ARTHROPLASTY Glenohumeral arthritis, right Complete tear of right rotator cuff, unspecified whether traumatic 02/20/2024 7:30 AM EDT ME OR Start: 02-20-2024 Subsequent hospital visit by physician 02/20/2024 7:30 AM EDT Hospital Encounter [facility] [address] [place] [address] Tatiana Sutherland MD [address] [place] [address] Glenohumeral arthritis, right [M19.011] [facility] Comment on above: Glenohumeral arthritis, right [M19.011] Start: 02-17-2024 End: 02-17-2024 Patient encounter procedure Molecular Imaging Comment on above: Pre-operative examination [Z01.818] Start: 02-14-2024 End: 02-14-2024 Patient encounter procedure Molecular Imaging Comment on above: Pre-operative examination [Z01.818] Start: 02-13-2024 End: 02-13-2024 Patient encounter procedure 02/13/2024 3:30 PM EDT Office Visit Cardiology [address] [place] [address] Pre-operative examination [Z01.818] Cardiology Comment on above: Pre-operative examination [Z01.818] Start: 02-10-2024 End: 05-11-2024 CBC W Auto Differential panel - Blood COMPLETE BLOOD COUNT AND DIFFERENTIAL Lab Routine Pre-operative examination Expected: 02/10/2024, Expires: 05/11/2024 [facility] Work Phone: Comment on above: Expected: 02/10/2024, Expires: Start: 02-10-2024 End: 05-11-2024 Comprehensive metabolic 2000 panel - Serum or Plasma COMPREHENSIVE METABOLIC PANEL Lab Routine Pre-operative examination Expected: 02/10/2024, Expires: 05/11/2024 [facility] Comment on above: Expected: 02/10/2024, Expires: Start: 02-10-2024 End: 02-09-2025 Echocardiography ECHO Cardiology Routine Pre-operative examination Abnormal electrocardiogram Expected: 02/10/2024, Expires: 02/09/2025 [facility] Comment on above: Expected: 02/10/2024, Expires: 5 Start: 02-10-2024 End: 05-11-2024 Hemoglobin A1c in Blood HEMOGLOBIN A1C Lab Routine Pre-operative examination Expected: 02/10/2024, Expires: 05/11/2024 [facility] Comment on above: Expected: 02/10/2024, Expires: 4 Start: 02-10-2024 End: 03-11-2025 NM Heart Perfusion W stress and W radionuclide IV NM CARDIAC PERF STRESS/PHARM Radiology Routine Pre-operative examination Abnormal electrocardiogram Expected: 02/10/2024, Expires: 03/11/2025 [facility] Comment on above: Expected: 02/10/2024, Expires: 5 Start: 02-10-2024 End: 02-10-2024 Anesthesia consultation 02/10/2024 9:20 AM EDT PAT Pre Anesthesia [address] [facility] [place] [address] [address], [address] [place] [address] REVERSE TOTAL SHOULDER ARTHROPLASTY [28249] - Shoulder - Right Pre Anesthesia Comment on above: REVERSE TOTAL SHOULDER ARTHROPLASTY [[id number] 45] - Shoulder - Right Start: 01-20-2024 End: 01-20-2024 Patient encounter procedure 01/20/2024 10:00 AM EDT Office Visit Orthopedics [address] [facility] [address] [place] [id number] Tatiana Sutherland MD [address] [facility] [facility] [address] [place] [address] Complete tear of right rotator cuff, unspecified whether traumatic [M75.121] Orthopedics Comment on above: Complete tear of right rotator cuff, uns pecified whether traumatic [M75.121] Start: 10-06-2023 Covid-19 Vaccine () Covid-19 Vaccine () [facility] Start: 10-06-2023 Covid-19 Vaccine ( season) Covid-19 Vaccine () [facility] Start: 08-15-2023 Advance Directive Discussion Advance Directive Discussion [facility] Start: 08-15-2023 Behavioral Health Screening Behavioral Health Screening [facility] Start: 04-15-2023 Influenza vaccination INFLUENZA (#1) [facility] Start: 11-03-2022 COVID-19 VACCINE (6 - Pfizer series) COVID-19 VACCINE (6 - Pfizer series) [facility] Start: 09-02-2022 Plain chest X-ray Chest PA and Lateral [facility] Start: 09-02-2022 XR Chest PA and Lateral [facility] Start: 08-15-2022 ADVANCE DIRECTIVE DISCUSSION ADVANCE DIRECTIVE DISCUSSION [facility] Start: 08-15-2022 DEPRESSION ASSESSMENT DEPRESSION ASSESSMENT [facility] Start: 08-15-2021 ADVANCE DIRECTIVE DISCUSSION ADVANCE DIRECTIVE DISCUSSION [facility] Start: 2012 BONE DENSITY BONE DENSITY [facility] Start: 2012 PNEUMOVAX AGE 65 AND OVER WITH 5YR LOOKBACK (#1) PNEUMOVAX AGE 65 AND OVER WITH 5YR LOOKBACK (#1) [facility] Start: 2012 Screening for osteoporosis Bone Density Screening [facility] Start: 1997 SHINGRIX VACCINE (1 of 2) SHINGRIX VACCINE (1 of 2) [facility] Start: 1992 COLOGUARD (FIT-DNA) COLOGUARD (FIT-DNA) [facility] Start: 1992 Colonoscopy COLONOSCOPY [facility] Start: 1992 COLORECTAL CANCER SCREENING COLORECTAL CANCER SCREENING [facility] Start: [address] COLONOGRAPHY [facility] Start: 1992 DIABETES SCREEN DIABETES SCREEN [facility] Start: 1992 Diabetes Screening Diabetes Screening [facility] Start: 1992 FECAL OCCULT BLOOD FECAL OCCULT BLOOD [facility] Start: 1992 LIPID SCREEN LIPID SCREEN [facility] Start: 1992 SIGMOIDOSCOPY SIGMOIDOSCOPY [facility] Start: 1987 Mammography MAMMOGRAM [facility] Start: 1977 Zoledronic acid therapy ALPHA-1 ANTITRYPSIN DEFICIENCY SCREENING [facility] Start: 1965 ANNUAL PCP TEAM CHRONIC DISEASE VISIT ANNUAL PCP TEAM CHRONIC DISEASE VISIT [facility] Start: 1965 Anxiety Screening Anxiety Screening [facility] Start: 1965 BP Controlled (<130/80) BP Controlled (<130/80) [facility] in Start: 1965 Hepatitis B surface antibody level LDL Cholesterol [facility] Start: 1965 HEPATITIS C SCREENING HEPATITIS C SCREENING [facility] Start: 1965 Hepatitis C screening Hepatitis C Screening [facility] Start: 1965 SPIROMETRY SPIROMETRY [facility] Start: 1959 Adult depression screening assessment DEPRESSION SCREENING [facility] Start: 1957 Diabetic foot examination Diabetic Foot Exam [facility] Start: 1957 Glaucoma screening Dilated Retinal Exam [facility] Start: 1957 Hepatitis B screening Urine Albumin:Creatinine Ratio [facility] Start: 1953 PNEUMOCOCCAL: 65+ (1 - PCV) PNEUMOCOCCAL: 65+ (1 - PCV) [facility] Start: 1952 Hemoglobin A1c measurement HbA1C [facility] Alanine aminotransfe rase [Enzymatic activity/volume] in Serum or Plasma [facility] Albumin [Mass/volume ] in Serum or Plasma [facility] Alkaline phosphatase [Enzymatic activity/volume] in Serum or Plasma [facility] Anion gap measurement [facility] Aspartate aminotransferase [Enzymatic activity/volume] in Serum or Plasma [facility] Bilirubin, total measurement [facility] BUN/Creatinine ratio [facility] Calcium [Mass/volume ] in Serum or Plasma [facility] Carbon dioxide, tota l [Moles/volume] in Serum or Plasma [facility] Chloride [Moles/volu me] in Serum or Plasma [facility] Creatinine [Moles/volume] in Serum or Plasma [facility] End: 02-09-2025 ECG COMPLETE ECG COMPLETE ECG Routine Pre-operative examination 1 Occurrences starting 02/10/2024 until 02/09/2025 [facility] Comment on above: 1 Occurrences starting 02/10/2024 until 02/09/2025 ECG COMPLETE ECG COMPLETE ECG 02/10/2024 9:28 AM EDT [facility] Glucose [Mass/volume ] in Serum or Plasma [facility] Lipase measurement [facility] Measurement of renal function [facility] Patient Education ED Clear Liqui d Diet ED Epigastric Pain Uncertain Cause [facility] Work Phone: Patient referral [facility] Work Phone: Potassium [Moles/vol ume] in Serum or Plasma [facility] SARS-CoV-2 (COVID-19 ) RNA [Presence] in Respiratory specimen by TATI with probe detection COVID NAAT, ROUTINE Microbiology Routine COPD (chronic obstructive pulmonary disease) with acute bronchitis (HCC) 04/01/2023 2:52 PM EDT [facility] Work Phone: Sodium [Moles/volume ] in Serum or Plasma [facility] Total protein measurement [facility] Urea nitrogen [Mass/volume] in Serum or Plasma [facility] XR Shoulder - right 3 Views XR SHOULDER GENERAL 3V OR MORE AP/TRUE AP/OTHER RIGHT Radiology Routine Chronic right shoulder pain 1 Occurrences starting 02/24/2024 [facility] Work Phone: Comment on above: 1 Occurrences starting 02/24/2024 XR Shoulder - right 3 Views XR SHOULDER GENERAL 3V OR MORE AP/TRUE AP/OTHER RIGHT Radiology Routine Chronic right shoulder pain 1 Occurrences starting 03/02/2024 [facility] Work Phone: Comment on above: 1 Occurrences starting 03/02/2024 XR Shoulder - right AP and Axillary and Y XR SHOULDER 3V AP/Y VIEW/AXILLARY RIGHT ([place]) Radiology Routine Status post reverse total replacement of right shoulder Ordered: 03/13/2024 [facility] Work Phone: Comment on above: Ordered: 03/13/2024 XR Shoulder - right AP and Axillary and Y XR SHOULDER 3V AP/Y VIEW/AXILLARY RIGHT ([place]) Radiology Routine Status post reverse total replacement of right shoulder Acute pain of right shoulder Ordered: 04/10/2024 [facility] Work Phone: Comment on above: Ordered: 04/10/2024 XR Shoulder - right AP and Axillary and Y XR SHOULDER 3V AP/Y VIEW/AXILLARY RIGHT ([place]) Radiology Routine Status post reverse total replacement of right shoulder Ordered: 06/05/2024 [facility] Work Phone: Comment on above: Ordered: 06/05/2024 Immunizations Immunization Date Immunization Notes Care Provider [facility] 05-11-2023 influenza virus vacc ine, unspecified formulation Card Injection [facility] 04-27-2022 influenza virus vacc ine, unspecified formulation DR ALEX LANCE MD [facility] 12-04-2021 SARS-CoV-2 mRNA (nzofhbrsfka-auew-yenkah e) vaccine DR ALEX LANCE MD [facility] 11-10-2021 tetanus toxoid, redu dinora diphtheria toxoid, and acellular pertussis vaccine, adsorbed Rayna Eyal PA-[facility]acho Work Phone: [facility] Work Phone: 05-16-2021 influenza virus vacc ine, unspecified formulation DR ALEX LANCE MD [facility] 05-16-2021 SARS-CoV-2 mRNA (tozinameran) vaccine DR ALEX LANCE MD [facility] 10-31-2020 SARS-CoV-2 mRNA (tozinameran) vaccine DR ALEX LANCE MD [facility] 10-10-2020 SARS-CoV-2 mRNA (tozinameran) vaccine DR ALEX LANCE MD [facility] 06-22-2019 pneumococcal polysaccharide vaccine, [address] ALEX LANCE MD [facility] 06-15-2019 influenza virus vacc ine, unspecified formulation DR ALEX LANCE MD [facility] 12-08-2018 tetanus toxoid, redu dinora diphtheria toxoid, and acellular pertussis vaccine, adsorbed DR ALEX LANCE MD [facility] 06-06-2018 influenza virus vacc ine, unspecified formulation DR ALEX LANCE MD [facility] 06-06-2018 pneumococcal conjuga te vaccine, [address] ALEX LANCE MD [facility] 06-06-2017 influenza virus vacc ine, unspecified formulation DR ALEX LANCE MD [facility] 04-15-2015 influenza virus vacc ine, unspecified formulation DR ALEX LANCE MD [facility] 10-29-2014 zoster vaccine, live DR HAO LANCE MD [facility] 09-25-2014 pneumococcal conjuga te vaccine, [address] ALEX LANCE MD [facility] 06-10-2014 influenza virus vacc ine, unspecified formulation DR ALEX LANCE MD [facility] 05-15-2014 influenza virus vacc ine, unspecified formulation DR ALEX LANCE MD [facility] 05-15-2013 influenza virus vacc ine, unspecified formulation DR ALEX LANCE MD [facility] 10-20-2012 pneumococcal polysaccharide vaccine, [address] ALEX LANCE MD [facility] 05-15-2012 influenza virus vacc ine, unspecified formulation DR ALEX LANCE MD [facility] 06-07-2011 influenza virus vacc ine, unspecified formulation DR ALEX LANCE MD [facility] Payers Date Payer Category Payer Self-pay [id number] 2021 Medicare AETNA MEDICARE A ETNA MEDICARE PPO [id number] 2021-Present [phone] [address] [place] [address] PPO [id number] 2021 Medicare AETNA MEDICARE A ETNA MEDICARE PPO [id number] 2021-Present [phone] [address] [place] [address] PPO [id number] 2021 Private Health Insurance [id number] 2016 Unknown [id number] 1945 Unknown [id number] 51 1945 Unknown [id number] 51 1947 Unknown [id number] 27 1945 Unknown [id number] 27 Unknown [id number] 62 Unknown [id number] 62 Unknown [id number] 62 Unknown [id number] 62 Unknown [id number] 62 Unknown [id number] 62 Unknown [id number] 62 Unknown [id number] 62 Social History Date Type Detail Facility Start: 11-10-2021 End: 08-26-2022 Tobacco smoking status NHIS Smokes tobacco daily [facility] Start: 11-10-2021 End: 12-23-2023 Tobacco use and exposure Smokeless tobacco non-user [facility] Start: 11-10-2021 End: 06-05-2024 Alcohol intake Lifetime non-drinker (finding) [facility] Start: 11-10-2021 History SDOH Alcohol Frequency 1 [facility] Start: 1945 Sex Assigned At Not on file [facility] Start: 10-31-2021 End: 11-10-2021 Exposure to SARS-CoV-2 (event) Not sure [facility] Start: 03-11-2021 End: 08-26-2022 Tobacco smoking status ALIS Unknown if ever smoked [facility] Start: 04-24-2020 None [facility] Start: 04-24-2020 Spouse/ Signif icant Other [facility] Start: 03-31-2020 Cigarettes [facility] Start: 1945 Sex Assigned At Female W [facility] Start: 12-20-2022 Tobacco smoking status Heavy t obacco smoker (finding) [facility] Sex Assigned At Sex [facility] Start: 03-27-2023 End: 05-07-2024 History of Social function [facility] Start: 03-27-2023 End: 05-07-[address] [facility] Start: 12-23-2023 Tobacco smoking stat us NHIS Ex-smoker [facility] History of tobacco use Current smoker [facility] History of tobacco use Cigarette Smoker [facility] National Score (1-100), lower number is lower risk 69 [facility] Medical Equipment Procedure Code Equipment Code Equipment Original Text Equipment Identifier Dates ORIF, ankle 4.0mmx 22mm lock ing screw FDA Start: 04-24-2020 ORIF, ankle 4.0mmx 22mm lock ing screw FDA Start: 04-24-2020 ORIF, ankle 4.0mmx 22mm lock ing screw FDA Start: 04-24-2020 ORIF, ankle 6.5 cannulated s crew 16mm FDA Start: 04-24-2020 ORIF, ankle ANTERIOR TT CP P LATE, LEFT FDA Start: 04-24-2020 ORIF, ankle BB TRAUMA 5CC FO AM PACK VITOSS FDA Start: 04-24-2020 ORIF, ankle BIO4 VIABLE BONE MATRIX FDA Start: 04-24-2020 ORIF, ankle 4.0mmx 22mm lock ing screw FDA Start: 04-24-2020 ORIF, ankle 4.0mmx 22mm lock ing screw FDA Start: 04-24-2020 ORIF, ankle 4.0mmx 22mm lock ing screw FDA Start: 04-24-2020 ORIF, ankle 6.5 cannulated s crew 16mm FDA Start: 04-24-2020 ORIF, ankle ANTERIOR TT CP P LATE, LEFT FDA Start: 04-24-2020 ORIF, ankle BB TRAUMA 5CC FO AM PACK VITOSS FDA Start: 04-24-2020 ORIF, ankle BIO4 VIABLE BONE MATRIX FDA Start: 04-24-2020 ORIF, ankle 4.0mmx 22mm lock ing screw FDA Start: 04-24-2020 ORIF, ankle 4.0mmx 22mm lock ing screw FDA Start: 04-24-2020 ORIF, ankle 4.0mmx 22mm lock ing screw FDA Start: 04-24-2020 ORIF, ankle 6.5 cannulated s crew 16mm FDA Start: 04-24-2020 ORIF, ankle ANTERIOR TT CP P LATE, LEFT FDA Start: 04-24-2020 ORIF, ankle BB TRAUMA 5CC FO AM PACK VITOSS FDA Start: 04-24-2020 ORIF, ankle BIO4 VIABLE BONE MATRIX FDA Start: 04-24-2020 ORIF, ankle 4.0mmx 22mm lock ing screw FDA Start: 04-24-2020 ORIF, ankle 4.0mmx 22mm lock ing screw FDA Start: 04-24-2020 ORIF, ankle 4.0mmx 22mm lock ing screw FDA Start: 04-24-2020 ORIF, ankle 6.5 cannulated s crew 16mm FDA Start: 04-24-2020 ORIF, ankle ANTERIOR TT CP P LATE, LEFT FDA Start: 04-24-2020 ORIF, ankle BB TRAUMA 5CC FO AM PACK VITOSS FDA Start: 04-24-2020 ORIF, ankle BIO4 VIABLE BONE MATRIX FDA Start: 04-24-2020 ORIF, ankle 4.0mmx 22mm lock ing screw FDA Start: 04-24-2020 ORIF, ankle 4.0mmx 22mm lock ing screw FDA Start: 04-24-2020 ORIF, ankle 4.0mmx 22mm lock ing screw FDA Start: 04-24-2020 ORIF, ankle 6.5 cannulated s crew 16mm FDA Start: 04-24-2020 ORIF, ankle ANTERIOR TT CP P LATE, LEFT FDA Start: 04-24-2020 ORIF, ankle BB TRAUMA 5CC FO AM PACK VITOSS FDA Start: 04-24-2020 ORIF, ankle BIO4 VIABLE BONE MATRIX FDA Start: 04-24-2020 ORIF, ankle 4.0mmx 22mm lock ing screw FDA Start: 04-24-2020 ORIF, ankle 4.0mmx 22mm lock ing screw FDA Start: 04-24-2020 ORIF, ankle 4.0mmx 22mm lock ing screw FDA Start: 04-24-2020 ORIF, ankle 6.5 cannulated s crew 16mm FDA Start: 04-24-2020 ORIF, ankle ANTERIOR TT CP P LATE, LEFT FDA Start: 04-24-2020 ORIF, ankle BB TRAUMA 5CC FO AM PACK VITOSS FDA Start: 04-24-2020 ORIF, ankle BIO4 VIABLE BONE MATRIX FDA Start: 04-24-2020 ORIF, ankle 4.0mmx 22mm lock ing screw FDA Start: 04-24-2020 ORIF, ankle 4.0mmx 22mm lock ing screw FDA Start: 04-24-2020 ORIF, ankle 4.0mmx 22mm lock ing screw FDA Start: 04-24-2020 ORIF, ankle 6.5 cannulated s crew 16mm FDA Start: 04-24-2020 ORIF, ankle ANTERIOR TT CP P LATE, LEFT FDA Start: 04-24-2020 ORIF, ankle BB TRAUMA 5CC FO AM PACK VITOSS FDA Start: 04-24-2020 ORIF, ankle BIO4 VIABLE BONE MATRIX FDA Start: 04-24-2020 ORIF, ankle 4.0mmx 22mm lock ing screw FDA Start: 04-24-2020 ORIF, ankle 4.0mmx 22mm lock ing screw FDA Start: 04-24-2020 ORIF, ankle 4.0mmx 22mm lock ing screw FDA Start: 04-24-2020 ORIF, ankle 6.5 cannulated s crew 16mm FDA Start: 04-24-2020 ORIF, ankle ANTERIOR TT CP P LATE, LEFT FDA Start: 04-24-2020 ORIF, ankle BB TRAUMA 5CC FO AM PACK VITOSS FDA Start: 04-24-2020 ORIF, ankle BIO4 VIABLE BONE MATRIX FDA Start: 04-24-2020 ORIF, ankle 4.0mmx 22mm lock ing screw FDA Start: 04-24-2020 ORIF, ankle 4.0mmx 22mm lock ing screw FDA Start: 04-24-2020 ORIF, ankle 4.0mmx 22mm lock ing screw FDA Start: 04-24-2020 ORIF, ankle 6.5 cannulated s crew 16mm FDA Start: 04-24-2020 ORIF, ankle ANTERIOR TT CP P LATE, LEFT FDA Start: 04-24-2020 ORIF, ankle BB TRAUMA 5CC FO AM PACK VITOSS FDA Start: 04-24-2020 ORIF, ankle BIO4 VIABLE BONE MATRIX FDA Start: 04-24-2020 ORIF, ankle 4.0mmx 22mm lock ing screw FDA Start: 04-24-2020 ORIF, ankle 4.0mmx 22mm lock ing screw FDA Start: 04-24-2020 ORIF, ankle 4.0mmx 22mm lock ing screw FDA Start: 04-24-2020 ORIF, ankle 6.5 cannulated s crew 16mm FDA Start: 04-24-2020 ORIF, ankle ANTERIOR TT CP P LATE, LEFT FDA Start: 04-24-2020 ORIF, ankle BB TRAUMA 5CC FO AM PACK VITOSS FDA Start: 04-24-2020 ORIF, ankle BIO4 VIABLE BONE MATRIX FDA Start: 04-24-2020 ORIF, ankle 4.0mmx 22mm lock ing screw FDA Start: 04-24-2020 ORIF, ankle 4.0mmx 22mm lock ing screw FDA Start: 04-24-2020 ORIF, ankle 4.0mmx 22mm lock ing screw FDA Start: 04-24-2020 ORIF, ankle 6.5 cannulated s crew 16mm FDA Start: 04-24-2020 ORIF, ankle ANTERIOR TT CP P LATE, LEFT FDA Start: 04-24-2020 ORIF, ankle BB TRAUMA 5CC FO AM PACK VITOSS FDA Start: 04-24-2020 ORIF, ankle BIO4 VIABLE BONE MATRIX FDA Start: 04-24-2020 ORIF, ankle 4.0mmx 22mm lock ing screw FDA Start: 04-24-2020 ORIF, ankle 4.0mmx 22mm lock ing screw FDA Start: 04-24-2020 ORIF, ankle 4.0mmx 22mm lock ing screw FDA Start: 04-24-2020 ORIF, ankle 6.5 cannulated s crew 16mm FDA Start: 04-24-2020 ORIF, ankle ANTERIOR TT CP P LATE, LEFT FDA Start: 04-24-2020 ORIF, ankle BB TRAUMA 5CC FO AM PACK VITOSS FDA Start: 04-24-2020 ORIF, ankle BIO4 VIABLE BONE MATRIX FDA Start: 04-24-2020 ORIF, ankle 4.0mmx 22mm lock ing screw FDA Start: 04-24-2020 ORIF, ankle 4.0mmx 22mm lock ing screw FDA Start: 04-24-2020 ORIF, ankle 4.0mmx 22mm lock ing screw FDA Start: 04-24-2020 ORIF, ankle 6.5 cannulated s crew 16mm FDA Start: 04-24-2020 ORIF, ankle ANTERIOR TT CP P LATE, LEFT FDA Start: 04-24-2020 ORIF, ankle BB TRAUMA 5CC FO AM PACK VITOSS FDA Start: 04-24-2020 ORIF, ankle BIO4 VIABLE BONE MATRIX FDA Start: 04-24-2020 ORIF, ankle 4.0mmx 22mm lock ing screw FDA Start: 04-24-2020 ORIF, ankle 4.0mmx 22mm lock ing screw FDA Start: 04-24-2020 ORIF, ankle 4.0mmx 22mm lock ing screw FDA Start: 04-24-2020 ORIF, ankle 6.5 cannulated s crew 16mm FDA Start: 04-24-2020 ORIF, ankle ANTERIOR TT CP P LATE, LEFT FDA Start: 04-24-2020 ORIF, ankle BB TRAUMA 5CC FO AM PACK VITOSS FDA Start: 04-24-2020 ORIF, ankle BIO4 VIABLE BONE MATRIX FDA Start: 04-24-2020 ORIF, ankle 4.0mmx 22mm lock ing screw FDA Start: 04-24-2020 ORIF, ankle 4.0mmx 22mm lock ing screw FDA Start: 04-24-2020 ORIF, ankle 4.0mmx 22mm lock ing screw FDA Start: 04-24-2020 ORIF, ankle 6.5 cannulated s crew 16mm FDA Start: 04-24-2020 ORIF, ankle ANTERIOR TT CP P LATE, LEFT FDA Start: 04-24-2020 ORIF, ankle BB TRAUMA 5CC FO AM PACK VITOSS FDA Start: 04-24-2020 ORIF, ankle BIO4 VIABLE BONE MATRIX FDA Start: 04-24-2020 Insertion, spinal cord stimulator, permanent RECHARGE NEUROSTIMULATOR FDA Start: 03-16-2021 Insertion, spinal cord stimulator, permanent VECTRIS SURESCAN MRI 1X8 FDA Start: 03-16-2021 Insertion, spinal cord stimulator, permanent VECTRIS SURESCAN MRI 1X8 FDA Start: 03-16-2021 Insertion, spinal cord stimulator, permanent RECHARGE NEUROSTIMULATOR FDA Start: 03-16-2021 Insertion, spinal cord stimulator, permanent VECTRIS SURESCAN MRI 1X8 FDA Start: 03-16-2021 Insertion, spinal cord stimulator, permanent VECTRIS SURESCAN MRI 1X8 FDA Start: 03-16-2021 Insertion, spinal cord stimulator, permanent RECHARGE NEUROSTIMULATOR FDA Start: 03-16-2021 Insertion, spinal cord stimulator, permanent VECTRIS SURESCAN MRI 1X8 FDA Start: 03-16-2021 Insertion, spinal cord stimulator, permanent VECTRIS SURESCAN MRI 1X8 FDA Start: 03-16-2021 Insertion, spinal cord stimulator, permanent RECHARGE NEUROSTIMULATOR FDA Start: 03-16-2021 Insertion, spinal cord stimulator, permanent VECTRIS SURESCAN MRI 1X8 FDA Start: 03-16-2021 Insertion, spinal cord stimulator, permanent VECTRIS SURESCAN MRI 1X8 FDA Start: 03-16-2021 Insertion, spinal cord stimulator, permanent RECHARGE NEUROSTIMULATOR FDA Start: 03-16-2021 Insertion, spinal cord stimulator, permanent VECTRIS SURESCAN MRI 1X8 FDA Start: 03-16-2021 Insertion, spinal cord stimulator, permanent VECTRIS SURESCAN MRI 1X8 FDA Start: 03-16-2021 Insertion, spinal cord stimulator, permanent RECHARGE NEUROSTIMULATOR FDA Start: 03-16-2021 Insertion, spinal cord stimulator, permanent VECTRIS SURESCAN MRI 1X8 FDA Start: 03-16-2021 Insertion, spinal cord stimulator, permanent VECTRIS SURESCAN MRI 1X8 FDA Start: 03-16-2021 Insertion, spinal cord stimulator, permanent RECHARGE NEUROSTIMULATOR FDA Start: 03-16-2021 Insertion, spinal cord stimulator, permanent VECTRIS SURESCAN MRI 1X8 FDA Start: 03-16-2021 Insertion, spinal cord stimulator, permanent VECTRIS SURESCAN MRI 1X8 FDA Start: 03-16-2021 Insertion, spinal cord stimulator, permanent RECHARGE NEUROSTIMULATOR FDA Start: 03-16-2021 Insertion, spinal cord stimulator, permanent VECTRIS SURESCAN MRI 1X8 FDA Start: 03-16-2021 Insertion, spinal cord stimulator, permanent VECTRIS SURESCAN MRI 1X8 FDA Start: 03-16-2021 Insertion, spinal cord stimulator, permanent RECHARGE NEUROSTIMULATOR FDA Start: 03-16-2021 Insertion, spinal cord stimulator, permanent VECTRIS SURESCAN MRI 1X8 FDA Start: 03-16-2021 Insertion, spinal cord stimulator, permanent VECTRIS SURESCAN MRI 1X8 FDA Start: 03-16-2021 Insertion, spinal cord stimulator, permanent RECHARGE NEUROSTIMULATOR FDA Start: 03-16-2021 Insertion, spinal cord stimulator, permanent VECTRIS SURESCAN MRI 1X8 FDA Start: 03-16-2021 Insertion, spinal cord stimulator, permanent VECTRIS SURESCAN MRI 1X8 FDA Start: 03-16-2021 Insertion, spinal cord stimulator, permanent RECHARGE NEUROSTIMULATOR FDA Start: 03-16-2021 Insertion, spinal cord stimulator, permanent VECTRIS SURESCAN MRI 1X8 FDA Start: 03-16-2021 Insertion, spinal cord stimulator, permanent VECTRIS SURESCAN MRI 1X8 FDA Start: 03-16-2021 Insertion, spinal cord stimulator, permanent RECHARGE NEUROSTIMULATOR FDA Start: 03-16-2021 Insertion, spinal cord stimulator, permanent VECTRIS SURESCAN MRI 1X8 FDA Start: 03-16-2021 Insertion, spinal cord stimulator, permanent VECTRIS SURESCAN MRI 1X8 FDA Start: 03-16-2021 Insertion, spinal cord stimulator, permanent RECHARGE NEUROSTIMULATOR FDA Start: 03-16-2021 Insertion, spinal cord stimulator, permanent VECTRIS SURESCAN MRI 1X8 FDA Start: 03-16-2021 Insertion, spinal cord stimulator, permanent VECTRIS SURESCAN MRI 1X8 FDA Start: 03-16-2021 Insertion, spinal cord stimulator, permanent RECHARGE NEUROSTIMULATOR FDA Start: 03-16-2021 Insertion, spinal cord stimulator, permanent VECTRIS SURESCAN MRI 1X8 FDA Start: 03-16-2021 Insertion, spinal cord stimulator, permanent VECTRIS SURESCAN MRI 1X8 FDA Start: 03-16-2021 Insertion, spinal cord stimulator, permanent RECHARGE NEUROSTIMULATOR FDA Start: 03-16-2021 Insertion, spinal cord stimulator, permanent VECTRIS SURESCAN MRI 1X8 FDA Start: 03-16-2021 Insertion, spinal cord stimulator, permanent VECTRIS SURESCAN MRI 1X8 FDA Start: 03-16-2021 Head Rsp 36mm Ne utral Glenoid Retain Screw - [id number] Start: 02-20-2024 Insert Ar Small [id number] Neutral Eplus - [id number] Start: 02-20-2024 Stem Humeral Alt ivate Reverse Small Shell Sz 01n272ha - [id number] Start: 02-20-2024 Baseplate Rsp P2 30mm Glenoid Sterile - [id number] Start: 02-20-2024 Screw Rsp 5mm 18 mm Bone Lock Glenoid Baseplate Shoulder - [id number] Start: 02-20-2024 Screw Rsp 5mm 18 mm Bone Lock Glenoid Baseplate Shoulder - [id number] Start: 02-20-2024 Screw Rsp 5mm 26 mm Bone Lock Glenoid Baseplate Shoulder - [id number] Start: 02-20-2024 Screw Rsp 5mm 22 mm Bone Lock Glenoid Baseplate Shoulder - [id number] Start: 02-20-2024 Functional Status Date Assessment Result Facility 01-12-2023 Functional Status Room check performed [facility] 01-12-2023 Functional Status 2 [facility] 01-12-2023 Functional Status transport chair [facility] 01-12-2023 Functional Status bilateral knee high [facility] 01-12-2023 Functional Status [facility] 01-11-2023 Functional Status [facility] 01-11-2023 Functional Status Dinner Percent 100 [facility] 01-11-2023 [facility] Status [facility] 01-11-2023 Functional Status Multilevel emelia e, 1st floor bedroom, 1st floor bathroom, 1st floor laundry [facility] 01-11-2023 Functional Status ice on, tension pillow in place [facility] 01-11-2023 Functional Status Maintained, More than 8 hours [facility] Mental Status Date Assessment Result Facility 01-12-2023 Mental Status Oriented x 4 [facility] 01-12-2023 Mental Status [facility] 01-12-2023 Mental Status [facility] 01-11-2023 Mental Status [facility] 01-11-2023 Mental Status [facility] 08-26-2022 Cognitive function Level Of Cons ciousness Awake;Alert;Appropriate;Follow s Commands [facility] Work Phone: Clinical Notes 11-10-2021 to 06-05-2024 Tatiana Sutherland MD - 06/05/2024 10:40 AM Christiano Olivo, PT - 05/21/2024 7:19 AM Christiano Olivo, PT - 05/21/2024 7:02 AM Christiano Olivo, PT - 05/14/2024 7:33 AM EDTPatient Instructions Note Date & Type Note Facility 06-05-2024 Note HNO ID: [id number] Author: TATIANA SUTHERLAND MD Service: ? Author Type: Physician Type: Progress Notes Filed: 06/05/2024 10:57 Note Text: PAIN EVALUATION 06/05/2024 1009 Pain Level: 5 Duration Units: Months Frequency: Roslyn Chandler presents for 3rd postoperative visit after right reverse total shoulder arthroplasty. Shoulder function is improving, pain improved but still some upper shoulder and neck pain. Examination of the shoulder demonstrates improvement in overhead and rotational motion. Strong deltoid contraction. No pain or feelings of instability with movement with the arm at the side Some trapezius pain with overhead lifting to 100 degrees today. IMAGING: Radiographs of the right shoulder personally reviewed today. Date of exam today. This is a 3-view shoulder exam, including AP, outlet, and axillary views. My interpretation of the examination: Stable appearance of reverse total shoulder arthroplasty without fracture or component looseing. ASSESSMENT: Good overall progress with early recovery following reverse total shoulder arthroplasty. PLAN: We discussed that she may benefit from stretching or evaluation of her neck Advance use of the shoulder as tolerated Continue daily stretching Follow-up as needed Tatiana Sutherland MD Shoulder AND Elbow Surgeon Department of Orthopaedic Surgery [facility] 06-05-2024 History of Presen t illness Narrative PAIN EVALUATION 06/05/2024 1009 Pain Level: 5 Duration Units: Months Frequency: Roslyn Chandler presents for 3rd postoperative visit after right reverse total shoulder arthroplasty. Shoulder function is improving, pain improved but still some upper shoulder and neck pain. Examination of the shoulder demonstrates improvement in overhead and rotational motion. Strong deltoid contraction. No pain or feelings of instability with movement with the arm at the side Some trapezius pain with overhead lifting to 100 degrees today. IMAGING: Radiographs of the right shoulder personally reviewed today. Date of exam today. This is a 3-view shoulder exam, including AP, outlet, and axillary views. My interpretation of the examination: Stable appearance of reverse total shoulder arthroplasty without fracture or component looseing. ASSESSMENT: Good overall progress with early recovery following reverse total shoulder arthroplasty. PLAN: We discussed that she may benefit from stretching or evaluation of her neck Advance use of the shoulder as tolerated Continue daily stretching Follow-up as needed Tatiana Sutherland MD Shoulder & Elbow Surgeon Department of Orthopaedic Surgery [facility] documented in this encounter [facility] 05-21-2024 History of Presen t illness Narrative Program_ID:[id number] Access Code: [email or web address] URL: [email or web address] Date: 05-21-2024 Prepared By: Christiano Villafana Program Notes Exercises - Single Arm Scaption with Dumbbell - 1 x daily - 7 x weekly - 4 sets - 10 reps - Seated Single Arm Bicep Curls Supinated with Dumbbell - 1 x daily - 7 x weekly - 4 sets - 10 reps - Shoulder External Rotation with Anchored Resistance - 1 x daily - 7 x weekly - 4 sets - 10 reps - Shoulder Internal Rotation with Resistance - 1 x daily - 7 x weekly - 4 sets - 10 reps Images from the original note were not included. Episode Visit Count: 5 Therapist That Will Accept/Oversee The Plan Of Care: Christiano Villafana PT Start of Care Date: 02/27/24 Onset Date: 02/26/22 Plan of Care Certification Date: 04/26/24 Next Certification Due Date: 05/31/24 Patient Identified by Name and Date of : Yes REHABILITATION AND SPORTS THERAPY PHYSICAL THERAPY DISCONTINUANCE OF CARE PLAN OF CARE UPDATE: Assessment: Susan Chandler is discontinued from Physical Therapy services due to Patient/Client declining further intervention.. Patient was seen for 5 visits from Start of Care Date: 02/27/24 to 05/21/2024 and treatment included: Therapeutic exercise, Self-fpc management, and Patient/Family/Caregiver Education. Goals for Episode of Care: created on 02/27/24 through 05/21/24 [place] in home exercise program. - MET Patient will decrease pain rating by 2 points to meet minimal clinical important difference for numeric pain rating scale.-Met Perform cooking and cleaning without pain. - Met Increase ROM of RUE to 110 degrees of elevation or greater for ease of reaching overhead into cabinets - MET Increased strength of RUE to 5/5 for return to PLOF - Nearly met Patient Goals: return to PLOF SUBJECTIVE: The shoulder is pretty good. She feels it when lifting to reach something high. Nothing she cannot handle. She feels the strength is coming back. Pt would like to be done with PT starting today. Patient Goals: return to PLOF Functional Limitations: reaching behind back Prior Level of Function: Independent without limitations Intake Information: Prescription present Pain: Pain Pain Level: 2 Pain Location: Shoulder - Right PROMIS Scales 05/14/2024 04/26/2024 Higher is Better Phys Func - Score 31 (moderate dysfunction) Phys Func - Percentile 3 Self-Eff Symptom - Score 50 (Average) Self-Eff Symptom - Percentile 50 T-scores: mean of general population = 50. 5 points is clinically meaningfully difference Percentiles provide an indication of how the patient's score ranks in relation to the general population. Higher percentile rankings indicate better function/quality of life. 50th percentile is the average of the general population and indicates half of respondents had a worse score. OBJECTIVE MEASURES WITH LEVEL OF FUNCTION: UE AROM R Shoulder Flex: 112 Degrees R Shoulder ABduction: 112 Degrees R Shoulder Internal Rotation: 30 Degrees UE and Cervical Strength R Shoulder Flexion: 4+/5 R Shoulder Abduction (C5): 4+/5 R Shoulder Internal Rotation: 4+/5 R Shoulder External Rotation: 4/5 R Elbow Extension (C7): 5/5 R Elbow Flexion (C6): 5/5 TREATMENT: Therapeutic Exercise: 1: All objective measures taken this session 2: Seated bicep curl 5# x 10 3: Seated shoulder flexion 2# x 10 4: HEP handout provided Skilled Intervention: Patient was educated in proper exercise technique and purpose for exercises. Provided written instruction for home exercise program to facilitate proper performance and compliance. Correct performance of therapeutic exercises was facilitated with verbal and visual cuing. Billing Therapeutic Exercise Treatment Minutes: 27 Skilled Treatment Time Minutes (timed and untimed codes): 27 Total Session Time (minutes): 27 Session Start Time : 699 Session Stop Time : 726 Christiano Villafana PT documented in this encounter [facility] 05-21-2024 Note HNO ID: [id number] Author: CHRISTIANO VILLAFANA PT Service: ? Author Type: Physical Therapist Type: Progress Notes Filed: 05/21/2024 07:30 Note Text: Episode Visit Count: 5 Therapist That Will Accept/Oversee The Plan Of Care: Christiano Villafana PT Start of Care Date: 02/27/24 Onset Date: 02/26/22 Plan of Care Certification Date: 04/26/24 Next Certification Due Date: 05/31/24 Patient Identified by Name and Date of : Yes REHABILITATION AND SPORTS THERAPY PHYSICAL THERAPY DISCONTINUANCE OF CARE PLAN OF CARE UPDATE: Assessment: Susan Chandler is discontinued from Physical Therapy services due to Patient/Client declining further intervention.. Patient was seen for 5 visits from Start of Care Date: 02/27/24 to 05/21/2024 and treatment included: Therapeutic exercise, Self-fpc management, and Patient/Family/Caregiver Education. Goals for Episode of Care: created on 02/27/24 through 05/21/24 [place] in home exercise program. - MET Patient will decrease pain rating by 2 points to meet minimal clinical important difference for numeric pain rating scale.-Met Perform cooking and cleaning without pain. - Met Increase ROM of RUE to 110 degrees of elevation or greater for ease of reaching overhead into cabinets - MET Increased strength of RUE to 5/5 for return to PLOF - Nearly met Patient Goals: return to PLOF SUBJECTIVE: The shoulder is pretty good. She feels it when lifting to reach something high. Nothing she cannot handle. She feels the strength is coming back. Pt would like to be done with PT starting today. Patient Goals: return to PLOF Functional Limitations: reaching behind back Prior Level of Function: Independent without limitations Intake Information: Prescription present Pain: Pain Pain Level: 2 Pain Location: Shoulder - Right PROMIS Scales 05/14/2024 04/26/2024 Higher is Better Phys Func - Score 31 (moderate dysfunction) Phys Func - Percentile 3 Self-Eff Symptom - Score 50 (Average) Self-Eff Symptom - Percentile 50 T-scores: mean of general population = 50. 5 points is clinically meaningfully difference Percentiles provide an indication of how the patient's score ranks in relation to the general population. Higher percentile rankings indicate better function/quality of life. 50th percentile is the average of the general population and indicates half of respondents had a worse score. OBJECTIVE MEASURES WITH LEVEL OF FUNCTION: UE AROM R Shoulder Flex: 112 Degrees R Shoulder ABduction: 112 Degrees R Shoulder Internal Rotation: 30 Degrees UE and Cervical Strength R Shoulder Flexion: 4+/5 R Shoulder Abduction (C5): 4+/5 R Shoulder Internal Rotation: 4+/5 R Shoulder External Rotation: 4/5 R Elbow Extension (C7): 5/5 R Elbow Flexion (C6): 5/5 TREATMENT: Therapeutic Exercise: 1: All objective measures taken this session 2: Seated bicep curl 5# x 10 3: Seated shoulder flexion 2# x 10 4: HEP handout provided Skilled Intervention: Patient was educated in proper exercise technique and purpose for exercises. Provided written instruction for home exercise program to facilitate proper performance and compliance. Correct performance of therapeutic exercises was facilitated with verbal and visual cuing. Billing Therapeutic Exercise Treatment Minutes: 27 Skilled Treatment Time Minutes (timed and untimed codes): 27 Total Session Time (minutes): 27 Session Start Time : 0700 Session Stop Time : 726 Christiano Villafana PT [facility] 05-14-2024 History of Presen t illness Narrative Program_ID:[id number] Access Code: [email or web address] URL: [email or web address] Date: 05-14-2024 Prepared By: Christiano Villafana Program Notes Exercises - Single Arm Scaption with Dumbbell - 1 x daily - 7 x weekly - 4 sets - 10 reps - Seated Single Arm Bicep Curls Supinated with Dumbbell - 1 x daily - 7 x weekly - 4 sets - 10 reps - Shoulder External Rotation with Anchored Resistance - 1 x daily - 7 x weekly - 4 sets - 10 reps - Shoulder Internal Rotation with Resistance - 1 x daily - 7 x weekly - 4 sets - 10 reps Episode Visit Count: 4 Therapist That Will Accept/Oversee The Plan Of Care: Christiano Villafana PT Start of Care Date: 02/27/24 Onset Date: 02/26/22 Plan of Care Certification Date: 04/26/24 Next Certification Due Date: 05/31/24 Patient Identified by Name and Date of : Yes REHABILITATION AND SPORTS THERAPY PHYSICAL THERAPY TREATMENT NOTE ASSESSMENT: Susan Chandler tolerated the session with expected muscle soreness. She demonstrated good form with all therapeutic exercises. The patient will continue to benefit from ongoing skilled physical therapy to progress toward set goals and for reassessment by supervising therapist. PLAN FOR NEXT VISIT: PN SUBJECTIVE: Less pain in the shoulder. Slowly buolding strength. Pain: Pain Pain Level: 2 Pain Location: Shoulder - Right OBJECTIVE MEASURES WITH LEVEL OF FUNCTION: PROM R shoulder 110 degrees TREATMENT: Therapeutic Exercise: 1: Seated bicep curl 3# 2 x 10 2: Seated shoulder flexion 1# x 10 3: Seated shoulder flexion 2#, 2 x 10 4: Seated shoulder Er pink TB 2 x 10 5: Seated shoulder IR pink TB 2 x 10 Skilled Intervention: Patient was educated in proper exercise technique and purpose for exercises. Skilled judgment was used in selection of appropriate interventions. Provided written instruction for home exercise program to facilitate proper performance and compliance. Billing Therapeutic Exercise Treatment Minutes: 40 Skilled Treatment Time Minutes (timed and untimed codes): 40 Total Session Time (minutes): 40 Session Start Time : 656 Session Stop Time : 736 Christiano Villafana PT documented in this encounter [facility] 05-14-2024 Note HNO ID: [id number] Author: CHRISTIANO VILLAFANA PT Service: ? Author Type: Physical Therapist Type: Progress Notes Filed: 05/14/2024 07:49 Note Text: Episode Visit Count: 4 Therapist That Will Accept/Oversee The Plan Of Care: Christiano Villafana PT Start of Care Date: 02/27/24 Onset Date: 02/26/22 Plan of Care Certification Date: 04/26/24 Next Certification Due Date: 05/31/24 Patient Identified by Name and Date of : Yes REHABILITATION AND SPORTS THERAPY PHYSICAL THERAPY TREATMENT NOTE ASSESSMENT: Susan Chandler tolerated the session with expected muscle soreness. She demonstrated good form with all therapeutic exercises. The patient will continue to benefit from ongoing skilled physical therapy to progress toward set goals and for reassessment by supervising therapist. PLAN FOR NEXT VISIT: PN SUBJECTIVE: Less pain in the shoulder. Slowly buolding strength. Pain: Pain Pain Level: 2 Pain Location: Shoulder - Right OBJECTIVE MEASURES WITH LEVEL OF FUNCTION: PROM R shoulder 110 degrees TREATMENT: Therapeutic Exercise: 1: Seated bicep curl 3# 2 x 10 2: Seated shoulder flexion 1# x 10 3: Seated shoulder flexion 2#, 2 x 10 4: Seated shoulder Er pink TB 2 x 10 5: Seated shoulder IR pink TB 2 x 10 Skilled Intervention: Patient was educated in proper exercise technique and purpose for exercises. Skilled judgment was used in selection of appropriate interventions. Provided written instruction for home exercise program to facilitate proper performance and compliance. Billing Therapeutic Exercise Treatment Minutes: 40 Skilled Treatment Time Minutes (timed and untimed codes): 40 Total Session Time (minutes): 40 Session Start Time : 656 Session Stop Time : 736 Christiano Villafana PT [facility] 05-07-2024 History of Presen t illness Narrative Program_ID:[id number] Access Code: [email or web address] URL: [email or web address] Date: 05-07-2024 Prepared By: Christiano Villafana Program Notes Exercises - Seated Scapular Retraction - 1 x daily - 7 x weekly - 3 sets - 10 reps - Seated Shoulder Scaption AAROM with Parker at Side - 1 x daily - 7 x weekly - 4 sets - 10 reps - Seated Shoulder External Rotation AAROM with Cane and Hand in Neutral - 1 x daily - 7 x weekly - 4 sets - 10 reps - Seated Shoulder Flexion AAROM with Dowel - 1 x daily - 7 x weekly - 4 sets - 10 reps Episode Visit Count: 3 Therapist That Will Accept/Oversee The Plan Of Care: Christiano Villafana PT Start of Care Date: 02/27/24 Onset Date: 02/26/22 Plan of Care Certification Date: 04/26/24 Next Certification Due Date: 05/31/24 Patient Identified by Name and Date of : Yes REHABILITATION AND SPORTS THERAPY PHYSICAL THERAPY TREATMENT NOTE ASSESSMENT: Susan Chandler tolerated the session with expected muscle soreness. She demonstrated good form with all therapeutic exercises. The patient will continue to benefit from ongoing skilled physical therapy to progress toward set goals. PLAN FOR NEXT VISIT: Could trial AROM exercises if tolerated well SUBJECTIVE: Pt threw her back out when she was sleeping. Was unable to do exercises due to it. Taking steriods for the pain. Her brother also . Pain: Pain Pain Level: 3 Pain Location: Shoulder - Right OBJECTIVE MEASURES WITH LEVEL OF FUNCTION: R shoulder flexion AAROM 110 degrees TREATMENT: Therapeutic Exercise: 1: Seated shoulder parker flexion x 20 2: Seated shoulder parker scaption x 20 3: Seated ER with x 20 AAROM 4: Seated shoulder IR isometric x 10 wand 5: Seated shoulder ER iso wand x 10 6: Seated scapular retractions x 20 7: Seated shoulder flexion wand AAROM 2 x 10 Skilled Intervention: Patient was educated in proper exercise technique and purpose for exercises. Provided written instruction for home exercise program to facilitate proper performance and compliance. Billing Therapeutic Exercise Treatment Minutes: 38 Skilled Treatment Time Minutes (timed and untimed codes): 38 Total Session Time (minutes): 38 Session Start Time : 657 Session Stop Time : 735 Christiano Villafana PT documented in this encounter [facility] 05-07-2024 Note HNO ID: [id number] Author: CHRISTIANO VILLAFANA PT Service: ? Author Type: Physical Therapist Type: Progress Notes Filed: 05/07/2024 07:41 Note Text: Episode Visit Count: 3 Therapist That Will Accept/Oversee The Plan Of Care: Christiano Villafana PT Start of Care Date: 02/27/24 Onset Date: 02/26/22 Plan of Care Certification Date: 04/26/24 Next Certification Due Date: 05/31/24 Patient Identified by Name and Date of : Yes REHABILITATION AND SPORTS THERAPY PHYSICAL THERAPY TREATMENT NOTE ASSESSMENT: Susan Chandler tolerated the session with expected muscle soreness. She demonstrated good form with all therapeutic exercises. The patient will continue to benefit from ongoing skilled physical therapy to progress toward set goals. PLAN FOR NEXT VISIT: Could trial AROM exercises if tolerated well SUBJECTIVE: Pt threw her back out when she was sleeping. Was unable to do exercises due to it. Taking steriods for the pain. Her brother also . Pain: Pain Pain Level: 3 Pain Location: Shoulder - Right OBJECTIVE MEASURES WITH LEVEL OF FUNCTION: R shoulder flexion AAROM 110 degrees TREATMENT: Therapeutic Exercise: 1: Seated shoulder parker flexion x 20 2: Seated shoulder parker scaption x 20 3: Seated ER with x 20 AAROM 4: Seated shoulder IR isometric x 10 wand 5: Seated shoulder ER iso wand x 10 6: Seated scapular retractions x 20 7: Seated shoulder flexion wand AAROM 2 x 10 Skilled Intervention: Patient was educated in proper exercise technique and purpose for exercises. Provided written instruction for home exercise program to facilitate proper performance and compliance. Billing Therapeutic Exercise Treatment Minutes: 38 Skilled Treatment Time Minutes (timed and untimed codes): 38 Total Session Time (minutes): 38 Session Start Time : 657 Session Stop Time : 735 Christiano Villafana PT [facility] 04-26-2024 History of Presen t illness Narrative Program_ID:[id number] Access Code: [email or web address] URL: [email or web address] Date: 04-26-2024 Prepared By: Christiano Villafana Program Notes Exercises - Seated Scapular Retraction - 1 x daily - 7 x weekly - 3 sets - 10 reps - Supine Shoulder Flexion Extension AAROM with Dowel - 1 x daily - 6 x weekly - 4 sets - 10 reps - Supine Shoulder External Rotation with Dowel - 1 x daily - 7 x weekly - 4 sets - 10 reps - Elbow flexion and extension stretch - 1 x daily - 7 x weekly - 4 sets - 10 reps - Seated Shoulder Scaption AAROM with [place] at Side - 1 x daily - 7 x weekly - 4 sets - 10 reps Episode Visit Count: 2 Therapist That Will Accept/Oversee The Plan Of Care: Christiano Villafana PT Start of Care Date: 02/27/24 Onset Date: 02/26/22 Plan of Care Certification Date: 04/26/24 Next Certification Due Date: 05/31/24 Patient Identified by Name and Date of : Yes REHABILITATION AND SPORTS THERAPY PHYSICAL THERAPY PROGRESS REPORT PLAN OF CARE UPDATE: Assessment: Susan Chandler demonstrates minimal improvement in overall physical function due to complications after surgery that did not allow the pt to continue with PT for 4 weeks per physician orders. She will now begin to work towards therapy goals. Patient continues to present with impairments in ADL's, independence in exercise, overall function, range of motion, and strength that interfere with reaching behind back, reaching overhead, lifting, cleaning, cooking, carrying, grooming, dressing . Current prognosis is Good due to: current objective clinical presentation . She will benefit from continued skilled therapy services to meet the updated goals for this plan of care as noted below. Goals for Episode of Care: created on 02/27/24 through 05/21/24 [place] in home exercise program. Patient will decrease pain rating by 2 points to meet minimal clinical important difference for numeric pain rating scale. Perform cooking and cleaning without pain. Increase ROM of RUE to 110 degrees of elevation or greater for ease of reaching overhead into cabinets Increased strength of RUE to 5/5 for return to PLOF Patient Goals: return to PLOF Time Frame for Goals and Treatment : 05/21/24 Patient Goals: return to PLOF Planned Interventions, Frequency, and Duration: 1x/week, 4 weeks Total Number of Visits Planned: 4 Patient to be seen for Therapeutic exercise (89210), Neuromuscular re-education (60021), Manual therapy (20146), Therapeutic activities (39836), Self-fpc management (59610), Patient/Family/Caregiver Education PLAN FOR NEXT VISIT: Follow post-op protocol. Slowly increase shoulder AAROM as tolerated. SUBJECTIVE: Went back to the physician and was told to rest for 4 weeks in a sling. Was told there was stress in the shoulder blade but not necessarily a stress fracture. Patient Goals: return to PLOF Functional Limitations: reaching behind back, reaching overhead, lifting, cleaning, cooking, carrying, grooming, dressing Prior Level of Function: Independent without limitations Intake Information: Prescription present Pain: Pain Pain Level: (7/10 with the exercises at times) Pain Location: Shoulder - Right PROMIS Scales T-scores: mean of general population = 50. 5 points is clinically meaningfully difference Percentiles provide an indication of how the patient's score ranks in relation to the general population. Higher percentile rankings indicate better function/quality of life. 50th percentile is the average of the general population and indicates half of respondents had a worse score. OBJECTIVE MEASURES WITH LEVEL OF FUNCTION: UE AROM R Shoulder Flex: 84 Degrees R Shoulder ABduction: 80 Degrees R Shoulder Internal Rotation: (WNL) R Shoulder External Rotation: 20 Degrees UE and Cervical Strength Strength Tested: Shoulder All R UE Strength: Not fully tested due to post-op status R Shoulder Flexion: 2+/5 R Shoulder Abduction (C5): 2+/5 Tender along the R upper trap and R deltoid TREATMENT: Therapeutic Exercise: 1: All objective measures taken this session 2: Supine wand flexion AAROM x 10 3: Supine wand ER x 10 4: Supine wand bicep curl AAROM x 10 5: Seated shoulder pulleys scaption AAROM x 10 6: Seated scapular retractions x 10 Skilled Intervention: Patient was educated in proper exercise technique and purpose for exercises. Provided written instruction for home exercise program to facilitate proper performance and compliance. Correct performance of therapeutic exercises was facilitated with verbal and visual cuing. Billing Therapeutic Exercise Treatment Minutes: 42 Skilled Treatment Time Minutes (timed and untimed codes): 42 Total Session Time (minutes): 42 Session Start Time : 826 Session Stop Time : 908 Christiano Villafana PT documented in this encounter [facility] 04-26-2024 Note HNO ID: [id number] Author: CHRISTIANO VILLAFANA PT Service: ? Author Type: Physical Therapist Type: Progress Notes Filed: 04/26/2024 10:41 Note Text: Episode Visit Count: 2 Therapist That Will Accept/Oversee The Plan Of Care: Christiano Villafana PT Start of Care Date: 02/27/24 Onset Date: 02/26/22 Plan of Care Certification Date: 04/26/24 Next Certification Due Date: 05/31/24 Patient Identified by Name and Date of : Yes REHABILITATION AND SPORTS THERAPY PHYSICAL THERAPY PROGRESS REPORT PLAN OF CARE UPDATE: Assessment: Susan Chandler demonstrates minimal improvement in overall physical function due to complications after surgery that did not allow the pt to continue with PT for 4 weeks per physician orders. She will now begin to work towards therapy goals. Patient continues to present with impairments in ADL's, independence in exercise, overall function, range of motion, and strength that interfere with reaching behind back, reaching overhead, lifting, cleaning, cooking, carrying, grooming, dressing . Current prognosis is Good due to: current objective clinical presentation . She will benefit from continued skilled therapy services to meet the updated goals for this plan of care as noted below. Goals for Episode of Care: created on 02/27/24 through 05/21/24 [place] in home exercise program. Patient will decrease pain rating by 2 points to meet minimal clinical important difference for numeric pain rating scale. Perform cooking and cleaning without pain. Increase ROM of RUE to 110 degrees of elevation or greater for ease of reaching overhead into cabinets Increased strength of RUE to 5/5 for return to PLOF Patient Goals: return to PLOF Time Frame for Goals and Treatment : 05/21/24 Patient Goals: return to PLOF Planned Interventions, Frequency, and Duration: 1x/week, 4 weeks Total Number of Visits Planned: 4 Patient to be seen for Therapeutic exercise (39806), Neuromuscular re-education (43597), Manual therapy (97936), Therapeutic activities (77790), Self-fpc management (07809), Patient/Family/Caregiver Education PLAN FOR NEXT VISIT: Follow post-op protocol. Slowly increase shoulder AAROM as tolerated. SUBJECTIVE: Went back to the physician and was told to rest for 4 weeks in a sling. Was told there was stress in the shoulder blade but not necessarily a stress fracture. Patient Goals: return to PLOF Functional Limitations: reaching behind back, reaching overhead, lifting, cleaning, cooking, carrying, grooming, dressing Prior Level of Function: Independent without limitations Intake Information: Prescription present Pain: Pain Pain Level: (7/10 with the exercises at times) Pain Location: Shoulder - Right PROMIS Scales T-scores: mean of general population = 50. 5 points is clinically meaningfully difference Percentiles provide an indication of how the patient's score ranks in relation to the general population. Higher percentile rankings indicate better function/quality of life. 50th percentile is the average of the general population and indicates half of respondents had a worse score. OBJECTIVE MEASURES WITH LEVEL OF FUNCTION: UE AROM R Shoulder Flex: 84 Degrees R Shoulder ABduction: 80 Degrees R Shoulder Internal Rotation: (WNL) R Shoulder External Rotation: 20 Degrees UE and Cervical Strength Strength Tested: Shoulder All R UE Strength: Not fully tested due to post-op status R Shoulder Flexion: 2+/5 R Shoulder Abduction (C5): 2+/5 Tender along the R upper trap and R deltoid TREATMENT: Therapeutic Exercise: 1: All objective measures taken this session 2: Supine wand flexion AAROM x 10 3: Supine wand ER x 10 4: Supine wand bicep curl AAROM x 10 5: Seated shoulder pulleys scaption AAROM x 10 6: Seated scapular retractions x 10 Skilled Intervention: Patient was educated in proper exercise technique and purpose for exercises. Provided written instruction for home exercise program to facilitate proper performance and compliance. Correct performance of therapeutic exercises was facilitated with verbal and visual cuing. Billing Therapeutic Exercise Treatment Minutes: 42 Skilled Treatment Time Minutes (timed and untimed codes): 42 Total Session Time (minutes): 42 Session Start Time : 826 Session Stop Time : 908 Christiano Villafana PT [facility] 04-10-2024 Note HNO ID: [id number] Author: TATIANA SUTHERLAND MD Service: ? Author Type: Physician Type: Progress Notes Filed: 04/10/2024 10:55 Note Text: PAIN EVALUATION 04/10/2024 1001 Pain Level: 2 Description: Aching;Sore Frequency: Intermittent Encounter Diagnosis ICD-10-CM 1. 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 Acute pain of right shoulder M25.511 XR SHOULDER 3V AP/Y VIEW/AXILLARY RIGHT ([place]) Susan Chandler returns to follow-up after right reverse shoulder arthroplasty. At her last visit she was having pain in the posterolateral acromion concerning for a stress fracture. She feels this pain has improved. She has been wearing her sling. She has pause physical therapy. No other injuries or setbacks. I examined her right shoulder today in the office. There is only mild discomfort to palpation at the posterolateral acromion and certainly much less pain than on previous exam. No crepitation in this area with movement. She has 60 degrees of active forward elevation with a firm endpoint. 10 degrees of internal and external rotation actively and passively without much discomfort today. IMAGING: Radiographs of the right shoulder personally reviewed today. Date of exam today. This is a 3-view shoulder exam, including AP, outlet, and axillary views. My interpretation of the examination: Stable appearance of reverse total shoulder arthroplasty with no change in alignment of the acromion PLAN: We discussed her improvement since her last visit. She has very little posterolateral acromial pain and it is unclear whether this is simply muscular pain today. No tenderness with tapping on the bone. She may resume her physical therapy and return to see me in 6 weeks for clinical check with new x-rays at that time. Tatiana Sutherland MD Shoulder AND Elbow Surgeon Department of Orthopaedic Surgery [facility] 04-10-2024 History of Presen t illness Narrative PAIN EVALUATION 04/10/2024 1001 Pain Level: 2 Description: Aching;Sore Frequency: Intermittent Encounter Diagnosis ICD-10-CM 1. 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 Acute pain of right shoulder M25.511 XR SHOULDER 3V AP/Y VIEW/AXILLARY RIGHT ([place]) Susan Chandler returns to follow-up after right reverse shoulder arthroplasty. At her last visit she was having pain in the posterolateral acromion concerning for a stress fracture. She feels this pain has improved. She has been wearing her sling. She has pause physical therapy. No other injuries or setbacks. I examined her right shoulder today in the office. There is only mild discomfort to palpation at the posterolateral acromion and certainly much less pain than on previous exam. No crepitation in this area with movement. She has 60 degrees of active forward elevation with a firm endpoint. 10 degrees of internal and external rotation actively and passively without much discomfort today. IMAGING: Radiographs of the right shoulder personally reviewed today. Date of exam today. This is a 3-view shoulder exam, including AP, outlet, and axillary views. My interpretation of the examination: Stable appearance of reverse total shoulder arthroplasty with no change in alignment of the acromion PLAN: We discussed her improvement since her last visit. She has very little posterolateral acromial pain and it is unclear whether this is simply muscular pain today. No tenderness with tapping on the bone. She may resume her physical therapy and return to see me in 6 weeks for clinical check with new x-rays at that time. Tatiana Sutherland MD Shoulder & Elbow Surgeon Department of Orthopaedic Surgery [facility] REVIEW OF SYSTEMS: GENERAL: Well developed, well nourished. No acute distress PAIN: Pain yes and Chronic Pain yes CARDIOVASCULAR: Negative for chest pain, leg swelling and palpations. MSK: Negative for joint swelling SKIN: Negative for lesions, rash, itching, metal sensitivity NEURO: Negative for seizure, trauma, numbness/tingling of extremities. ENDOCRINE: Positive for diabetic associated symptoms HEMATOLOGY: Negative for excessive bleeding, clots, bleeding disorders. documented in this encounter [facility] 04-10-2024 Note HNO ID: [id number] Author: DEEP CASTILLO Tech Service: ? Author Type: Magnet Valve Assembler Type: Progress Notes Filed: 04/10/2024 10:55 Note Text: REVIEW OF SYSTEMS: GENERAL: Well developed, well nourished. No acute distress PAIN: Pain yes and Chronic Pain yes CARDIOVASCULAR: Negative for chest pain, leg swelling and palpations. MSK: Negative for joint swelling SKIN: Negative for lesions, rash, itching, metal sensitivity NEURO: Negative for seizure, trauma, numbness/tingling of extremities. ENDOCRINE: Positive for diabetic associated symptoms HEMATOLOGY: Negative for excessive bleeding, clots, bleeding disorders. [facility] 03-14-2024 Note HNO ID: [id number] Author: TATIANA SUTHERLAND MD Service: ? Author Type: Physician Type: Progress Notes Filed: 03/14/2024 13:27 Note Text: PAIN EVALUATION 03/13/2024 1026 Pain Level: 4 Pain Location: Shoulder-Right Description: Aching Frequency: Continuous Encounter Diagnosis ICD-10-CM 1. 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 Acute pain of right shoulder M25.511 Susan Chandler presents for evaluation of acute onset right shoulder pain today. This began 3 days ago and was localized to the posterior shoulder. No falls or significant injuries. She had been doing her usual stretching and light use of the arm. I examined her right shoulder today. Incision is healing. Pain is localized to the posterior lateral shoulder at the scapular spine. This is worse with palpation. She has pain with lifting which is also localized to this area. Her lifting is still relatively good at 100 degrees with a strong deltoid contraction. IMAGING: Radiographs of the right shoulder personally reviewed today. Date of exam today. This is a 3-view shoulder exam, including AP, outlet, and axillary views. My interpretation of the examination: Stable RTSA, no acromial fracture or change in acromiohumeral interval. PLAN: Today I evaluated her right shoulder and there is concern for a stress reaction of her posterolateral acromion following her reverse arthroplasty. I let her know that this is a known complication of her procedure. At this point the fracture appears to be nondisplaced and I would recommend resting her in a sling for period of 4 weeks and return to see me for repeat clinical examination at that time. Recommended that she pause physical therapy and do no lifting greater than 1 pound until further evaluation. Tatiana Sutherland MD Shoulder AND Elbow Surgeon Department of Orthopaedic Surgery [facility] 03-14-2024 History of Presen t illness Narrative PAIN EVALUATION 03/13/2024 1026 Pain Level: 4 Pain Location: Shoulder-Right Description: Aching Frequency: Continuous Encounter Diagnosis ICD-10-CM 1. 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 Acute pain of right shoulder M25.511 Susan Chandler presents for evaluation of acute onset right shoulder pain today. This began 3 days ago and was localized to the posterior shoulder. No falls or significant injuries. She had been doing her usual stretching and light use of the arm. I examined her right shoulder today. Incision is healing. Pain is localized to the posterior lateral shoulder at the scapular spine. This is worse with palpation. She has pain with lifting which is also localized to this area. Her lifting is still relatively good at 100 degrees with a strong deltoid contraction. IMAGING: Radiographs of the right shoulder personally reviewed today. Date of exam today. This is a 3-view shoulder exam, including AP, outlet, and axillary views. My interpretation of the examination: Stable RTSA, no acromial fracture or change in acromiohumeral interval. PLAN: Today I evaluated her right shoulder and there is concern for a stress reaction of her posterolateral acromion following her reverse arthroplasty. I let her know that this is a known complication of her procedure. At this point the fracture appears to be nondisplaced and I would recommend resting her in a sling for period of 4 weeks and return to see me for repeat clinical examination at that time. Recommended that she pause physical therapy and do no lifting greater than 1 pound until further evaluation. Tatiana Sutherland MD Shoulder & Elbow Surgeon Department of Orthopaedic Surgery [facility] documented in this encounter [facility] 03-09-2024 Note HNO ID: [id number] Author: CHRISTIANO VILLAFANA PT Service: ? Author Type: Physical Therapist Type: Progress Notes Filed: 03/09/2024 12:23 Note Text: Pt entered the physical therapy department mentioning of posterior shoulder pain. Pain was reproduced with palpation along the spine of the scapula of the surgical side. Pt reports that this pain is like a deep ache. Pt reports that she was unable to do the exercises well due to pain and her range of motion has decreased recently. Pt was advised to call Dr. Sutherland's office to notify him of the patient's symptoms as directed by his surgical rehab protocol. This PT recommended stopping all therapeutic exercises for now and to protect the arm as best she could. This PT will contact Dr. Sutherland to notify him of the patient's symptoms and this appointment has been cancelled. Christiano Villafana PT [facility] 03-09-2024 History of Presen t illness Narrative Pt entered the physical therapy department mentioning of posterior shoulder pain. Pain was reproduced with palpation along the spine of the scapula of the surgical side. Pt reports that this pain is like a deep ache. Pt reports that she was unable to do the exercises well due to pain and her range of motion has decreased recently. Pt was advised to call Dr. Sutherland's office to notify him of the patient's symptoms as directed by his surgical rehab protocol. This PT recommended stopping all therapeutic exercises for now and to protect the arm as best she could. This PT will contact Dr. Sutherland to notify him of the patient's symptoms and this appointment has been cancelled. Christiano Villafana PT documented in this encounter [facility] 03-02-2024 History of Presen t illness Narrative Radiology Service Progress Note PATIENT NAME: Susan Chandler DATE OF SERVICE: March 02, 2024 TIME: 12:40 PM PATIENT IDENTITY VERIFICATION COMPLETED USING TWO (2) IDENTIFIERS: Name and Date of confirmed by patient verbally. FALL SCREENING: Has the patient had 2 falls in the last year or 1 fall with injury or currently using an Ambulatory Assistive Device (Walker, Cane, Wheelchair, Crutches, etc.)? No PATIENT GENDER DATA: Female. status: : No status: NO. PATIENT RELEVANT IMPLANT DATA REVIEWED: Not Applicable PATIENT PRESENTS WITH AN IMPLANTABLE OR ATTACHED PANEL MACHINE OPERATOR: No RADIOLOGY DEPARTMENT: General X-ray: Exam(s) Completed: Upper Extremity X-Ray(s): Shoulder, TRUE AP / AXILLARY / SUPRA OUTLET right PERIPHERAL IV DATA: Not applicable SIGNED BY: Abigail Hi March 02, 2024 12:40 PM documented in this encounter [facility] 03-02-2024 Note HNO ID: [id number] Author: HARRIS SHULTZ Tech Service: ? Author Type: Magnet Valve Assembler Type: Progress Notes Filed: 03/02/2024 12:41 Note Text: Radiology Service Progress Note PATIENT NAME: Susan Chandler DATE OF SERVICE: March 02, 2024 TIME: 12:40 PM PATIENT IDENTITY VERIFICATION COMPLETED USING TWO (2) IDENTIFIERS: Name and Date of confirmed by patient verbally. FALL SCREENING: Has the patient had 2 falls in the last year or 1 fall with injury or currently using an Ambulatory Assistive Device (Walker, Cane, Wheelchair, Crutches, etc.)? No PATIENT GENDER DATA: Female. status: : No status: NO. PATIENT RELEVANT IMPLANT DATA REVIEWED: Not Applicable PATIENT PRESENTS WITH AN IMPLANTABLE OR ATTACHED PANEL MACHINE OPERATOR: No RADIOLOGY DEPARTMENT: General X-ray: Exam(s) Completed: Upper Extremity X-Ray(s): Shoulder, TRUE AP / AXILLARY / SUPRA OUTLET right PERIPHERAL IV DATA: Not applicable SIGNED BY: Abigail Hi March 02, 2024 12:40 PM [facility] 03-02-2024 Note HNO ID: [id number] Author: JENS ACEVEDO PA-C Service: ? Author Type: Physician Covered Button Maker Type: Progress Notes Filed: 03/02/2024 13:04 Note Text: Jens Acevedo PA-C Department of Orthopaedics March 02, 2024 SURGERY: Reverse total shoulder arthroplasty - right SUBJECTIVE: Patient returns to clinic now 2 weeks status post the above procedure. Pain has been controlled on pain medication. Patient has been out of the sling and using the arm for light activity as tolerates. Has been to PT. Exam: Well healed anterior incision. Active forward elevation to 90. Sensation intact to lateral deltoid. Strong deltoid contraction against resistance. Nontender along scapular spine or acromion. Imaging: I did order and interpret radiographs today, 3 views right shoulder. Reverse total shoulder arthroplasty intact without evidence of mechanical loosening or periprosthetic fracture. ASSESSMENT: Z96.611 Status post reverse total replacement of right shoulder (primary encounter diagnosis) SUMMARY/PLAN: Discussed progress now 2 weeks out from the above procedure. Continue with PT. Continue to use arm for activity as tolerates. Return to clinic in 4 weeks with repeat xrays of shoulder at that time. Jens Acevedo PA-C [facility] 03-02-2024 History of Presen t illness Narrative Jens Acevedo PA-C Department of Orthopaedics March 02, 2024 SURGERY: Reverse total shoulder arthroplasty - right SUBJECTIVE: Patient returns to clinic now 2 weeks status post the above procedure. Pain has been controlled on pain medication. Patient has been out of the sling and using the arm for light activity as tolerates. Has been to PT. Exam: Well healed anterior incision. Active forward elevation to 90. Sensation intact to lateral deltoid. Strong deltoid contraction against resistance. Nontender along scapular spine or acromion. Imaging: I did order and interpret radiographs today, 3 views right shoulder. Reverse total shoulder arthroplasty intact without evidence of mechanical loosening or periprosthetic fracture. ASSESSMENT: Z96.611 Status post reverse total replacement of right shoulder (primary encounter diagnosis) SUMMARY/PLAN: Discussed progress now 2 weeks out from the above procedure. Continue with PT. Continue to use arm for activity as tolerates. Return to clinic in 4 weeks with repeat xrays of shoulder at that time. Jens Acevedo PA-C documented in this encounter [facility] 02-27-2024 Note HNO ID: [id number] Author: CHRISTIANO VILLAFANA PT Service: ? Author Type: Physical Therapist Type: Progress Notes Filed: 02/27/2024 16:15 Note Text: Episode Visit Count: 1 Therapist That Will Accept/Oversee The Plan Of Care: Christiano Villafana PT Start of Care Date: 02/27/24 Onset Date: 02/26/22 Plan of Care Certification Date: 02/27/24 Next Certification Due Date: 04/02/24 Patient Identified by Name and Date of : Yes REHABILITATION AND SPORTS THERAPY PHYSICAL THERAPY EVALUATION PLAN OF CARE: Assessment: Susan Chandler presents with chief complaint of R shoulder post op rTSA that interferes with reaching behind back, reaching overhead, lifting, cleaning, cooking, carrying, grooming, dressing . She presents with impairments in ADL's, independence in exercise, overall function, range of motion, and strength. Patient did not complete the PROMIS? (Patient Reported Outcome Measures Information System). Prognosis for therapy is Good due to: current objective clinical presentation . She will benefit from skilled therapy services to meet the goals established for this plan of care as noted below. Goals for Episode of Care: created on 02/27/24 through 05/21/24 [place] in home exercise program. Patient will decrease pain rating by 2 points to meet minimal clinical important difference for numeric pain rating scale. Perform cooking and cleaning without pain. Increase ROM of RUE to 110 degrees of elevation or greater for ease of reaching overhead into cabinets Increased strength of RUE to 5/5 for return to PLOF Patient Goals: return to PLOF Planned Interventions, Frequency, and Duration: Current Frequency: 1x/week Duration: 4 weeks Total Number of Visits Planned: 4 Planned Treatment Interventions: Therapeutic exercise (97711), Neuromuscular re-education (39433), Manual therapy (21975), Therapeutic activities (12530), Self-fpc management (21425), Patient/Family/Caregiver Education PLAN FOR NEXT VISIT: Follow rehab protocol phase 1 Patient demonstrates good understanding of plan of care and treatment. The above goals and plan of care were discussed and agreed upon by patient/family. SUBJECTIVE: The shoulder is sore. Surgery one week ago. Patient Goals: return to PLOF Functional Limitations: reaching behind back, reaching overhead, lifting, cleaning, cooking, carrying, grooming, dressing Prior Level of Function: Independent without limitations Intake Information: Prescription present Pain: Pain Pain Level: 5 Pain Location: Shoulder - Right Description: Aching PROMIS Scales T-scores: mean of general population = 50. 5 points is clinically meaningfully difference Percentiles provide an indication of how the patient's score ranks in relation to the general population. Higher percentile rankings indicate better function/quality of life. 50th percentile is the average of the general population and indicates half of respondents had a worse score. OBJECTIVE MEASURES WITH LEVEL OF FUNCTION: Posture / Alignment Posture: Forward head, Rounded shoulders UE AROM R Shoulder Flex: 40 Degrees R Shoulder ABduction: 40 Degrees R Shoulder External Rotation: 20 Degrees UE and Cervical Strength Strength Tested: Shoulder All R UE Strength: Not fully tested due to post-op status R Shoulder Flexion: 2+/5 R Shoulder Abduction (C5): 2+/5 Education: Education Learning Preferences: Demonstration, Explanation, Performance, Printed Materials Barriers: None Learning/educational needs: Home exercise program, Plan of Care, Changes in Plan of Care Education Provided: Yes, see treatment interventions for education provided Education Provided To: Patient Education Mode/Type: Demonstration, Explanation/Discussion, Literature/Printed Materials, Performance Response to Education/Teach Back: States/Identifies, Return Demonstration TREATMENT: PT Treatment Interventions: Therapeutic Exercise, Self-Nursing Home Management Evaluation Therapeutic Exercise: 1: Discussed the HEP and pulleys vended 2: Supine wand flexion 2 x 10, PROM 3: Supine wand ER PROM 2 x 10 4: Seated shoulder pulleys scaption PROM x 10 Skilled Intervention: Patient was educated in proper exercise technique and purpose for exercises. Skilled judgment was used in selection of appropriate interventions. Provided written instruction for home exercise program to facilitate proper performance and compliance. Correct performance of therapeutic exercises was facilitated with verbal and visual cuing. Billing * Evaluation Low Complexity: 1 Unit Therapeutic Exercise Treatment Minutes: 12 Self-Care/Home Management Treatment Minutes: 4 Total Session Time (minutes): 35 Session Start Time : 1530 Session Stop Time : 1605 Christiano Villafana PT [facility] 02-27-2024 History of Presen t illness Narrative Episode Visit Count: 1 Therapist That Will Accept/Oversee The Plan Of Care: Christiano Villafana PT Start of Care Date: 02/27/24 Onset Date: 02/26/22 Plan of Care Certification Date: 02/27/24 Next Certification Due Date: 04/02/24 Patient Identified by Name and Date of : Yes REHABILITATION AND SPORTS THERAPY PHYSICAL THERAPY EVALUATION PLAN OF CARE: Assessment: Susan Chandler presents with chief complaint of R shoulder post op rTSA that interferes with reaching behind back, reaching overhead, lifting, cleaning, cooking, carrying, grooming, dressing . She presents with impairments in ADL's, independence in exercise, overall function, range of motion, and strength. Patient did not complete the PROMIS (Patient Reported Outcome Measures Information System). Prognosis for therapy is Good due to: current objective clinical presentation . She will benefit from skilled therapy services to meet the goals established for this plan of care as noted below. Goals for Episode of Care: created on 02/27/24 through 05/21/24 [place] in home exercise program. Patient will decrease pain rating by 2 points to meet minimal clinical important difference for numeric pain rating scale. Perform cooking and cleaning without pain. Increase ROM of RUE to 110 degrees of elevation or greater for ease of reaching overhead into cabinets Increased strength of RUE to 5/5 for return to PLOF Patient Goals: return to PLOF Planned Interventions, Frequency, and Duration: Current Frequency: 1x/week Duration: 4 weeks Total Number of Visits Planned: 4 Planned Treatment Interventions: Therapeutic exercise (13161), Neuromuscular re-education (33885), Manual therapy (40699), Therapeutic activities (59163), Self-fpc management (90707), Patient/Family/Caregiver Education PLAN FOR NEXT VISIT: Follow rehab protocol phase 1 Patient demonstrates good understanding of plan of care and treatment. The above goals and plan of care were discussed and agreed upon by patient/family. SUBJECTIVE: The shoulder is sore. Surgery one week ago. Patient Goals: return to PLOF Functional Limitations: reaching behind back, reaching overhead, lifting, cleaning, cooking, carrying, grooming, dressing Prior Level of Function: Independent without limitations Intake Information: Prescription present Pain: Pain Pain Level: 5 Pain Location: Shoulder - Right Description: Aching PROMIS Scales T-scores: mean of general population = 50. 5 points is clinically meaningfully difference Percentiles provide an indication of how the patient's score ranks in relation to the general population. Higher percentile rankings indicate better function/quality of life. 50th percentile is the average of the general population and indicates half of respondents had a worse score. OBJECTIVE MEASURES WITH LEVEL OF FUNCTION: Posture / Alignment Posture: Forward head, Rounded shoulders UE AROM R Shoulder Flex: 40 Degrees R Shoulder ABduction: 40 Degrees R Shoulder External Rotation: 20 Degrees UE and Cervical Strength Strength Tested: Shoulder All R UE Strength: Not fully tested due to post-op status R Shoulder Flexion: 2+/5 R Shoulder Abduction (C5): 2+/5 Education: Education Learning Preferences: Demonstration, Explanation, Performance, Printed Materials Barriers: None Learning/educational needs: Home exercise program, Plan of Care, Changes in Plan of Care Education Provided: Yes, see treatment interventions for education provided Education Provided To: Patient Education Mode/Type: Demonstration, Explanation/Discussion, Literature/Printed Materials, Performance Response to Education/Teach Back: States/Identifies, Return Demonstration TREATMENT: PT Treatment Interventions: Therapeutic Exercise, Self-Nursing Home Management Evaluation Therapeutic Exercise: 1: Discussed the HEP and pulleys vended 2: Supine wand flexion 2 x 10, PROM 3: Supine wand ER PROM 2 x 10 4: Seated shoulder pulleys scaption PROM x 10 Skilled Intervention: Patient was educated in proper exercise technique and purpose for exercises. Skilled judgment was used in selection of appropriate interventions. Provided written instruction for home exercise program to facilitate proper performance and compliance. Correct performance of therapeutic exercises was facilitated with verbal and visual cuing. Billing * Evaluation Low Complexity: 1 Unit Therapeutic Exercise Treatment Minutes: 12 Self-Care/Home Management Treatment Minutes: 4 Total Session Time (minutes): 35 Session Start Time : 1530 Session Stop Time : 1605 Christiano Villafana PT documented in this encounter [facility] 02-21-2024 Note HNO ID: [id number] Author: GERMAIN DE LUNA MD Service: General Internal Medicine Author Type: Physician Type: Progress Notes Filed: 02/21/2024 13:05 Note Text: INPATIENT PROGRESS NOTES Patient Name: Susan Chandler DATE of SERVICE: 02/21/2024 TIME of SERVICE: 8:43 PRIMARY SERVICE: medicine INTERVAL HPI: Uneventful night, no nausea or vomiting. No shortness of breath or palpitation. No cough or wheezing ASSESSMENT AND PLAN: . 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 PERTINENT ROS: All other reviewed and negative other than HPI. MEDICATIONS: Current Facility-Administered Medications Medication Dose Route Frequency NaCl 0.9% iv flush bag 20 mL INTRAVENOUS PRN gabapentin 300 mg cap(s) (NEURONTIN) 300 mg ORAL TID atenolol 50 mg tab(s) (TENORMIN) 50 mg ORAL BID escitalopram oxalate 10 mg tab(s) (LEXAPRO) 10 mg ORAL DAILY aspirin, enteric coated 81 mg tab(s) 81 mg ORAL DAILY traZODone 100 mg tab(s) (DESYREL) 100 mg ORAL AT BEDTIME dapagliflozin propanediol 10 mg tab(s) (FARXIGA) 10 mg ORAL DAILY valsartan 160 mg tab(s) (DIOVAN) 160 mg ORAL DAILY meloxicam 7.5 mg tab(s) (MOBIC) 7.5 mg ORAL DAILY rosuvastatin 10 mg tab(s) (CRESTOR) 10 mg ORAL AT BEDTIME traMADol 50 mg tab(s) (ULTRAM) 50 mg ORAL q 6 H PRN buPROPion SR 150 mg tab(s) (WELLBUTRIN SR) 150 mg ORAL q 12 HR calcium polycarbophil 625 mg tab(s) (FIBERCON) 625 mg ORAL DAILY acetaminophen 650 mg tab(s) (TYLENOL) 650 mg ORAL q 6 H PRN PHYSICAL EXAM: Patient Vitals for the past 24 hrs: BP Temp Temp src Pulse Resp SpO2 Height Weight 02/21/24 1246 102/72 36.5 ?C (97.7 ?F) -- 91 -- 93 % -- -- 02/21/24 1116 120/69 36.9 ?C (98.4 ?F) Oral 88 16 92 % -- -- 02/21/24 0751 128/68 36.4 ?C (97.5 ?F) Oral 73 16 93 % -- -- 02/21/24 0608 -- -- -- -- -- 91 % -- -- 02/21/24 0446 126/65 36.4 ?C (97.5 ?F) Oral 79 16 91 % -- -- 02/20/24 2000 135/67 36.6 ?C (97.8 ?F) Oral 85 18 96 % -- -- 02/20/24 1517 -- -- -- -- -- -- 152.4 cm (5') 89 kg (196 lb 3.4 oz) 02/20/24 1507 145/83 36.5 ?C (97.7 ?F) Oral 89 16 95 % -- -- 02/20/24 1400 149/67 -- -- 80 16 92 % -- -- 02/20/24 1330 134/76 -- -- 81 14 93 % -- -- Body mass index is 38.32 kg/m?. GENERAL: Alert, no distress, cooperative NECK: No jugulovenous distention LUNGS: Lungs clear to auscultation, Good diaphragmatic excursion CARDIAC: Normal S1 and S2; no rubs, murmurs, or gallops ABDOMEN: Abdomen soft, non-tender, BS normal, No masses or organomegaly EXTREMITIES: no edema CBC: Coags: CMP: Cardiac Enzymes: Liver Function, Amylase, Lipase: No results for input(s): TPROT, ALB, ALT, AST, ALKPHOS, TBILI, AMYLASE, LIPASE, LACTATE in the last 24 hours. ABG's: No results for input(s): PH, PCO2, PO2, BE, HCO3, CO2CT, O2HB, COHB, MHGB, TEMP, PHTC, PCO2T, PO2T, O2AD in the last 24 hours. MG/PHOS: No results for input(s): MG, P in the last 24 hours. SIGNATURE: Germain De Luna MD [facility] 02-20-2024 Note HNO ID: [id number] Author: TL WILKINS RN Service: Nursing Author Type: Registered Nurse Type: Progress Notes Filed: 02/20/2024 13:39 Note Text: Pt admitted to Phase II ASCU, pt states that she wears 2 L NC at home at night. Pt currently on NC 3 L at 92%. After ambulating to , on RA, pt oxygen sat 85%. Pt states she does not have a portable oxygen tank to bring for transport home- she has a [address] with [address] Kearns, Dr. Sutherland notified. Observation orders placed. [facility] 02-20-2024 Note HNO ID: [id number] Author: KEVIN VILA RN Service: Nursing Author Type: Registered Nurse Type: Nursing Progress Note Filed: 02/20/2024 12:26 Note Text: Other: 12:25-hand off report given to Janett ROSE [facility] 02-20-2024 Note HNO ID: [id number] Author: KOLBY KEARNS MD Service: Nursing Author Type: Anesthesiologist Type: Anesthesia Procedure Notes Filed: 02/20/2024 12:11 Note Text: ANESTHESIOLOGY PROCEDURE NOTE Airway General Information Procedure Start Time/Medication Administration: 02/20/2024 9:57 AM Procedure End Time: 02/20/2024 10:00 AM Patient location during procedure: OR Timeout Performed Pre-procedure: timeout performed Consent Obtained: Yes Patient identity confirmed: arm band Staffing SRNA: Jerri Salinas SRNA Performed by: BETO Indications and Patient Condition Indications for airway management: anesthesia Preoxygenated: yes anesthesia circuit Patient position: sniffing Method: asleep Final Airway Details Final airway type: endotracheal airway Final Endotracheal Airway: ETT Cuffed: yes Successful intubation technique: video laryngoscopy Devices used: Gould Blade size: #3 ETT size (mm): 7.0 Measured from: gums Measurement (cm): 22 Placement verified by: capnometry Cormack-Lehane Classification: grade I - full view of glottis Number of attempts at approach: 2 (First attempt DL, short TMD and neck.) Other Attempts Unsuccessful attempted endotracheal techniques: direct laryngoscopy Failed airway: no Unrecognized esophageal intubation: no Airway not difficult SIGNATURE: BETO Crouch PATIENT NAME: Susan Chandler DATE: February 20, 2024 TIME: 10:21 AM CSN: [id number] [facility] 02-20-2024 Note HNO ID: [id number] Author: KOLBY KEARNS MD Service: Anesthesiology Author Type: Anesthesiologist Type: Anesthesia Procedure Notes Filed: 02/20/2024 09:30 Note Text: ANESTHESIOLOGY PROCEDURE NOTE Peripheral Nerve Block General Information Procedure Start Time/Medication Administration: 02/20/2024 9:21 AM Procedure End time: 02/20/2024 9:27 AM Patient location during procedure: induction room Timeout Performed Pre-procedure: timeout performed Consent Obtained: Yes Patient identity confirmed: arm band and patient Reason for block: post-op pain management/at surgeon's request Staffing Anesthesiologist: Kolby Kearns MD Performed by: anesthesiologist Preparation Sterility Preparation: hand hygiene performed prior to procedure, sterile gloves, drapes, and procedure tray, surgical cap used, mask used, sterile drape used during line insertion, skin prep agent completely dried prior to procedure Site Prep: Chloraprep Pre-Procedure Neuro Exam Location: RUE Sensory: intact Motor: intact Procedure Details Patient Position: supine Monitoring: Pulse OX, EKG and NIBP Block Type Upper Extremity: brachial plexus Approach: interscalene Laterality: right Injection Technique: single-shot Ultrasound Guided: Yes Image in Chart: yes Local Infiltration: Yes Needle Needle Gauge: 21 G Needle Length: 51 mm Needle Localization: nerve stimulator and ultrasound Assessment Injection assessment: negative aspiration, no paresthesia on injection, incremental injection and local visualized surrounding nerve on ultrasound Paresthesia: none Post-Procedure Neuro Exam Expected Regional Anesthesia: Yes Medications Administered dexamethasone sodium phosphate injection (DECADRON) - peripheral nerve block 10 mg - 02/20/2024 9:21:00 AM ropivacaine (PF) 5 mg/mL (0.5 %) injection (NAROPIN) - peripheral nerve block 30 mL - 02/20/2024 9:21:00 AM SIGNATURE: Kolby Kearns MD PATIENT NAME: Susan Chandler DATE: February 20, 2024 TIME: 9:30 AM CSN: [id number] [facility] 02-17-2024 History of Presen t illness Narrative RADIOLOGY SERVICE PROGRESS NOTE SERVICE DATE: 02/17/2024 SERVICE TIME: 7:49 AM PATIENT IDENTITY VERIFICATION COMPLETED USING TWO (2) STANDARD IDENTIFIERS: Name and Date of confirmed by patient verbally and Name and Date of confirmed by identification band FALL SCREENING: Has the patient had 2 falls in the last year or 1 fall with injury or currently using an Ambulatory Assistive Device (Walker, Cane, Wheelchair, Crutches, etc.)? Yes, Patient High Risk for Falls What interventions were put in place to prevent falls during this visit? Yellow Falls Risk Wristband Applied PATIENT GENDER DATA: .female : No ALLERGIES: Reviewed and unchanged MEDICATIONS REVIEWED: Not applicable PATIENT RELEVANT IMPLANT DATA REVIEWED: Not Applicable PATIENT PRESENTS WITH AN IMPLANTABLE OR ATTACHED PANEL MACHINE OPERATOR: No CREATININE: No results found for: CREAT, EGFROTH, EGFRAA P.O.C.T. RESULTS: N/A February 17, [address] PERFORMED: No IV SITE: Ambulatory: A peripheral IV was started in the Right forearm with a Angio cath: 24 gauge. POST EXAM PIV STATUS: Discontinued PROCEDURE TYPE: NM Stress: 17.9 mCi [id number] was administered IV for Rest Imaging at 7:45 by ap. 50.1 mCi [id number] was administered IV for Stress Imaging at 935 by folk. PATIENT DISCHARGED TO: Ambulatory patient, left [place] department area. A Diagnostic radioactive procedure has taken place, with no further precautions necessary other than routine body substance precautions. More information regarding radiation safety can be found using this link: [email or web address]%20N uclear%20Medicine%20Procedures.p df SIGNATURE: RT Tunde(R) PATIENT NAME: Susan Chandler DATE: February 17, 2024 TIME: 7:49 AM PAGER/CONTACT #: RADIOLOGY SERVICE PROGRESS NOTE SERVICE DATE: 02/17/2024 SERVICE TIME: 9:18 AM PATIENT IDENTITY VERIFICATION COMPLETED USING TWO (2) STANDARD IDENTIFIERS: Name and Date of confirmed by patient verbally and Name and Date of confirmed by identification band PATIENT GENDER DATA: female : No ALLERGIES: Reviewed and unchanged MEDICATIONS REVIEWED BY: [employer] PROCEDURE TYPE: NM STRESS: 0.4 mg of Lexiscan was administered IV at 0935 by Sarah Kim RN . Reversal agent used: None. IV SITE: Ambulatory: A Saline lock was inserted per protocol POST EXAM PIV STATUS: Discontinued PATIENT DISCHARGED TO: Ambulatory patient, left [place] department area. A Diagnostic radioactive procedure has taken place, with no further precautions necessary other than routine body substance precautions. More information regarding radiation safety can be found using this link: [email or web address]%20N uclear%20Medicine%20Procedures.p df SIGNATURE: Sarah Kim RN PATIENT NAME: Susan Chandler DATE: February 17, 2024 TIME: 9:18 AM PAGER/CONTACT #: [phone] documented in this encounter [facility] 02-17-2024 Note HNO ID: [id number] Author: SARAH KIM RN Service: Radiology Author Type: Registered Nurse Type: Progress Notes Filed: 02/17/2024 09:37 Note Text: RADIOLOGY SERVICE PROGRESS NOTE SERVICE DATE: 02/17/2024 SERVICE TIME: 9:18 AM PATIENT IDENTITY VERIFICATION COMPLETED USING TWO (2) STANDARD IDENTIFIERS: Name and Date of confirmed by patient verbally and Name and Date of confirmed by identification band PATIENT GENDER DATA: female : No ALLERGIES: Reviewed and unchanged MEDICATIONS REVIEWED BY: [employer] PROCEDURE TYPE: NM STRESS: 0.4 mg of Lexiscan was administered IV at 0935 by Sarah Kim RN . Reversal agent used: None. IV SITE: Ambulatory: A Saline lock was inserted per protocol POST EXAM PIV STATUS: Discontinued PATIENT DISCHARGED TO: Ambulatory patient, left [place] department area. A Diagnostic radioactive procedure has taken place, with no further precautions necessary other than routine body substance precautions. More information regarding radiation safety can be found using this link: [email or web address] [email or web address]-% 20Diagnostic%20Nuclear%20Medicin e%20Procedures.pdf SIGNATURE: Sarah Kim RN PATIENT NAME: Susan Chandler DATE: February 17, 2024 TIME: 9:18 AM PAGER/CONTACT #: [phone] [facility] 02-17-2024 Note HNO ID: [id number] Author: KENNETH NAQVI RT(R) Service: Nuclear Medicine Author Type: Technologist Type: Progress Notes Filed: 02/17/2024 09:43 Note Text: RADIOLOGY SERVICE PROGRESS NOTE SERVICE DATE: 02/17/2024 SERVICE TIME: 7:49 AM PATIENT IDENTITY VERIFICATION COMPLETED USING TWO (2) STANDARD IDENTIFIERS: Name and Date of confirmed by patient verbally and Name and Date of confirmed by identification band FALL SCREENING: Has the patient had 2 falls in the last year or 1 fall with injury or currently using an Ambulatory Assistive Device (Walker, Cane, Wheelchair, Crutches, etc.)? Yes, Patient High Risk for Falls What interventions were put in place to prevent falls during this visit? Yellow Falls Risk Wristband Applied PATIENT GENDER DATA: .female : No ALLERGIES: Reviewed and unchanged MEDICATIONS REVIEWED: Not applicable PATIENT RELEVANT IMPLANT DATA REVIEWED: Not Applicable PATIENT PRESENTS WITH AN IMPLANTABLE OR ATTACHED PANEL MACHINE OPERATOR: No CREATININE: No results found for: CREAT, EGFROTH, EGFRAA P.O.C.T. RESULTS: N/A February 17, [address] PERFORMED: No IV SITE: Ambulatory: A peripheral IV was started in the Right forearm with a Angio cath: 24 gauge. POST EXAM PIV STATUS: Discontinued PROCEDURE TYPE: NM Stress: 17.9 mCi [id number] was administered IV for Rest Imaging at 7:45 by ap. 50.1 mCi [id number]-[id number] was administered IV for Stress Imaging at 935 by folk. PATIENT DISCHARGED TO: Ambulatory patient, left [place] department area. A Diagnostic radioactive procedure has taken place, with no further precautions necessary other than routine body substance precautions. More information regarding radiation safety can be found using this link: [email or web address] [email or web address]-% 20Diagnostic%20Nuclear%20Medicin e%20Procedures.pdf SIGNATURE: RT Tunde(R) PATIENT NAME: Susan Chandler DATE: February 17, 2024 TIME: 7:49 AM PAGER/CONTACT #: [facility] 02-10-2024 Telephone encounter Note pt scheduled [facility] 02/14/2024 [facility] Work Phone: 02-10-2024 Miscellaneous Notes pt scheduled [facility] 02/14/2024 ----- Message from Nestor Ruby APRN.CNP sent at 02/10/2024 12:50 PM EDT ----- I ordered a lexiscan and echo on this patient. And for some reason the schedulers here scheduled it at [facility] and they are asking for auth. Can this be done at [facility] somewhere and notify pt it needs to be completed here so we have it done and her surgery stays on track for the same day. ----- Message ----- From: Sarahi Dvaidson LPN Sent: 02/10/2024 12:44 PM EDT To: Nestor Ruby APRN.CNP; Cydney Luque LPN Just got a call from [facility] that they need an auth on the stress test. It looks like a referral was already placed- so I imagine we will need to let them know when we hear back. The surgery is scheduled for 02/19, hopefully there is enough time. KP documented in this encounter [facility] 02-10-2024 Telephone encounter Note ----- Message from Nestor Ruby APRN.DELIA sent at 02/10/2024 12:50 PM EDT ----- I ordered a lexiscan and echo on this patient. And for some reason the schedulers here scheduled it at [facility] and they are asking for auth. Can this be done at [facility] somewhere and notify pt it needs to be completed here so we have it done and her surgery stays on track for the same day. ----- Message ----- From: Sarahi Davidson LPN Sent: 02/10/2024 12:44 PM EDT To: Nestor Ruby APRN.DELIA; Cydney Luque LPN Just got a call from [facility] that they need an auth on the stress test. It looks like a referral was already placed- so I imagine we will need to let them know when we hear back. The surgery is scheduled for 02/19, hopefully there is enough time. KP [facility] 02-10-2024 Telephone encounter Note Received last office visit but not any pulmonary testing. Original sent to [facility] through [employer] scanning. Cydney Luque LPN [facility] 02-10-2024 Miscellaneous Notes Received last office visit but not any pulmonary testing. Original sent to [facility] through [employer]. Cydney Luque LPN Fax request sent to Dr. Kinney's office requesting last office visit and testing for upcoming surgery 02/24/24. Cydney Luque LPN Please request Dr. Nirmal marquez OV and respiratory testing results. DOS 02/24/2024. documented in this encounter [facility] 02-10-2024 Telephone encounter Note Fax request sent to Dr. Kinney's office requesting last office visit and testing for upcoming surgery 02/24/24. Cydney Luque LPN [facility] 02-10-2024 Telephone encounter Note Please request Dr. Nirmal marquez OV and respiratory testing results. DOS 02/24/2024. [facility] 02-10-2024 Instructions Nestor Ruby APRN.CNP - 02/10/2024 9:32 AM EDT PATIENT PREOPERATIVE INSTRUCTIONS Tatiana Sutherland,* has scheduled you for your procedure at this surgery center: [facility]: [phone] -- [address] [facility] [address]. Please read below carefully for your personalized instructions. Dietary Restrictions: - No solid food after midnight. - You may have 12 ounces of clear liquids (water, clear juices such as apple juice or gatorade, carbonated beverages, clear tea, black coffee, jello) until 2 hours before scheduled arrival at facility. No red/purple coloring and no creamer/sugar Medications: Unless instructed differently below, stay on all of your medications until your surgery. If you start any new medications after today's visit, please contact your surgeon. Pre-Surgery Med Instructions Medication Instructions calcium polycarbophil (FIBERCON) 625 mg tablet Stop 7 days before surgery buprenorphine (BUTRANS) 15 mcg/hour patch CONTACT PRESCRIBER FOR PRE-OP INSTRUCTIONS FARXIGA 10 mg tablet Stop 3 days before surgery valsartan (DIOVAN) 160 mg tablet Do not take the day of surgery meloxicam (MOBIC) 7.5 mg tablet Stop 7 days before surgery rosuvastatin (CRESTOR) 10 mg tablet Take the day of surgery with a small sip of water traMADol (ULTRAM) 50 mg tablet IF needed buPROPion SR (WELLBUTRIN SR) 150 mg 12 hr tablet Take the day of surgery with a small sip of water calcium carbonate (CALTRATE) 600 mg calcium (1,500 mg) tab Stop 7 days before surgery atenolol (TENORMIN) 50 mg tablet Take the day of surgery with a small sip of water escitalopram oxalate (LEXAPRO) 10 mg tablet Take the day of surgery with a small sip of water gabapentin (NEURONTIN) 300 mg capsule Take the day of surgery with a small sip of water aspirin, enteric coated (ASPIRIN, ENTERIC COATED) 81 mg EC tablet Stop 7 days before surgery traZODone (DESYREL) 50 mg tablet Do not take the day of surgery If you start any new medications after today's visit, please contact the surgeon's office. Blood Thinning Medications: - Stop NSAIDS (Ibuprofen, Advil, Aleve, Motrin, Celebrex, Mobic, etc.) 7 days before surgery, as directed by your surgeon. - Stop Aspirin 7 days before surgery, as directed by your surgeon. - Stop Vitamin E, ALL multi-vitamins, herbals and dietary supplements 7 days before surgery. - You may take Tylenol (Acetaminophen) or any of your pain medications that do not contain aspirin or NSAIDS as needed. Important Reminders: - Candy, mints, and tobacco products are NOT permitted the morning of surgery. - Hearing aids, dentures and glasses may be worn the morning of surgery. - NO jewelry, body piercings, makeup, hairpins or contacts are to be worn the day of surgery. If you develop symptoms such as a fever, cold, or flu, or have other changes to your health within TWO DAYS of scheduled surgery or the morning of surgery, please contact the surgery center above. Personal Belongings: -Please have photo ID and insurance cards. -If you do not have a copy of advance directives on file with us, please bring a copy with you on the day of surgery. - Leave ALL valuables and money at home or with family members. For Outpatient Procedures: - YOU MUST HAVE A RESPONSIBLE BLUE LINE TRIMMER TAKE YOU HOME. A RUBBER SPLICER OR BACK JOINER CANNOT BE MADE A RESPONSIBLE BLUE LINE TRIMMER. - We recommend that a responsible person stays with you overnight to take care of you. - You cannot stay in a hotel alone after outpatient surgery. You will not be permitted to have your surgery, if you do not have someone to take care of you. Arrival Time for Surgery: - The Surgery Center or hospital where you are having surgery will call the afternoon before surgery (or Tuesday for Tuesday surgery) with a scheduled arrival time. - If you have not heard by 4 pm, please contact the surgery center above. Please be aware that emergency situations arise, which may delay or change your surgical time. If this happens, we will notify you as soon as possible and regret any inconvenience. If you already have an Advance Directive, please fax a copy to [phone] or email to for it to be added to your chart. If you do not have an Advance Directive, you can find the appropriate form and more information at [email or web address]. We recommend that you complete the Advance Directive form found on the website and bring it with you the day of your surgery. It can be witnessed and scanned into your chart that day. Nestor Ruby APRN.CNP documented in this encounter [facility] 02-10-2024 History and physical note Images from the original note were not included. [facility] HISTORY AND PHYSICAL EXAMINATION SERVICE DATE: 02/10/2024 SERVICE TIME: 10:22 AM PRIMARY CARE PHYSICIAN: Terrance Alonso MD, MD Assessment Patient has the following medical conditions which may affect vinod-operative course: Essential (primary) hypertension Assessment: controlled on rx Last 14 BP Last 14 Encounter BP Readings: Date: BP: 02/10/2024 130/72 04/01/2023 122/78 03/27/2023 124/80 11/10/2021 130/78 History of tobacco use Assessment: 1-1.5ppd/60 years COPD (chronic obstructive pulmonary disease) ([facility]) Assessment: uses no inhalers, following Dr. Kinney at [facility], records requested Depressive disorder Assessment: and anxiety, stable on rx per pt Mixed hyperlipidemia Assessment: c/w statin RBBB Assessment: per EKG, no previous to compare Abnormal EKG Assessment: echo and Lexiscan ordered Today's EKG, no previous EKG's to compare to SINUS BRADYCARDIA WITH SINUS ARRHYTHMIA COMPLETE RIGHT BUNDLE BRANCH BLOCK CANNOT EXCLUDE INFERIOR MYOCARDIAL INFARCTION , AGE UNDETERMINED ABNORMAL ECG Class 2 severe obesity due to excess calories with serious comorbidity and body mass index (BMI) of 37.0 to 37.9 in adult ([facility]) Assessment: Body mass index is 37.5 kg/m . JEANNIE (obstructive sleep apnea) Assessment: c/w CPAP Type 2 diabetes mellitus without complication, without long-term current use of insulin ([facility]) Assessment: controlled on oral agent, new A1c pending Brady Activity Status Index: METS: Climb a flight of stairs or walk up a hill (5.50 METs) DASI Score: 5.5 Patient denies any chest pain or undue shortness of breath with the above physical activity. Clinical Frailty Scale: 3. Well, with treated comorbid disease STOP-Bang Score: Snores loudly Has or is being treated for high blood pressure BMI greater than 35 kg/m^2 Patient over 50 years old Has a large neck Denies feeling tired, fatigued, or sleepy during the daytime Has not been observed to stop breathing or choking/gasping during sleep Non-male patient STOP-Bang Score: 5 [id number] Score: Age: >=75 Sex: female CHF history: No Hypertension history: Yes Stroke/TIA/thromboembolism history: No Vascular disease history: No Diabetes history: Yes [id number] Score: 5 ARISCAT Score: Age: 51-80 Preoperative SpO2: >=96% Respiratory infection in the last month: No Preoperative anemia: Yes Surgical incision: peripheral Duration of surgery: <2 hrs Emergency procedure: No ARISCAT Score: 14 ANESTHESIA FINDINGS: Intubation History: No history of difficult intubation Significant Anesthesia Considerations: none Airway History: No history of difficult airway I - PHYSICAL EVALUATION AIRWAY Patient intubated: No. Tracheostomy tube not present Mallampati: III. TM distance: >3 FB. Neck ROM: full ROM without neurological symptoms. Mouth opening: adequate. Short neck: yes. Thick neck: yes Crain present: no Lip Bite Test: I Microretrognathia/Micronagthia/R ecessed Chin: No DENTAL Dental findings: teeth intact. II - ANESTHESIA PLAN Anesthetic Plan: other Beta Gerardo Monitoring Plan Post Procedure Analgesic Plan Informed Consent Anesthetic risks, benefits, alternatives, personnel and consent discussed: yes. Patient / Responsible Alliance Party agrees to proceed: yes Patient / Surrogate agrees to blood products: blood products not planned Discussed the possibility of lip / dental damage: yes Prepared for Surgery: optimally prepared for surgery, pending [see comment]. Labs ,EKG, echo Dr. Kinney, pulmonary records requested CONSULTS: Patient does not require consults for optimization at this time Planned Anesthetic: other anesthesia choice The Following Tests/Procedures Have Been Initiated: Orders Placed This Encounter NM CARDIAC PERF STRESS/PHARM Standing Status: Future Standing Expiration Date: 03/11/2025 Order Specific Question: What stress agent will be used? Answer: Regadenoson >CBC + AUTO DIFF Standing Status: Future Standing Expiration Date: 05/11/2024 >CMP Standing Status: Future Standing Expiration Date: 05/11/2024 >HGB A1c (Today or soon) Standing Status: Future Standing Expiration Date: 05/11/2024 calcium polycarbophil (FIBERCON) 625 mg tablet Sig: Take 625 mg by mouth once daily. buprenorphine (BUTRANS) 15 mcg/hour patch Sig: Apply 1 patch to skin every 7 days. Remove old patch. mupirocin (BACTROBAN) 2 % ointment Sig: Apply 0.5 inch with cotton swab (Q-tip) to each nostril in the morning and evening for 5 days prior to and including day of surgery. Dispense: 22 g Refill: 0 ECG COMPLETE Order Comments: Ordered by an unspecified provider ECG COMPLETE Standing Status: Future Standing Expiration Date: 02/09/2025 ECHO Standing Status: Future Standing Expiration Date: 02/09/2025 Order Specific Question: Disease / Condition: Answer: Abnormal Test Result Order Specific Question: Indication: Answer: Abnormal ECG REASON FOR VISIT: Susan Chandler is a 78 year old female who is scheduled for Procedure(s): REVERSE TOTAL SHOULDER ARTHROPLASTY (Right) at the request of Dr. Tatiana Sutherland for consultation. My final recommendation will be communicated back to the requesting physician by way of shared medical record or letter. Subjective The patient has the following: ACTIVE PROBLEM LIST Mild Intermittent Asthma, Uncomplicated Essential (Primary) Hypertension Depressive Disorder History of Tobacco Use Copd (Chronic Obstructive Pulmonary Disease) ([facility]) Mixed Hyperlipidemia Rbbb Abnormal Ekg Class 2 Severe Obesity Due to Excess Calories With Serious Comorbidity and Body Mass Index (Bmi) of 37.0 to 37.9 in Adult ([facility]) Jeannie (Obstructive Sleep Apnea) Type 2 Diabetes Mellitus Without Complication, Without Long-Term Current Use of Insulin ([facility]) COVID-19 Immunization Status Overdue - Covid-19 Vaccine () Overdue since 10/06/2023 06/05/2023 Imm Admin: COVID-19 vaccine, age 12+ yr, season (PFIZER-BIONTECH) 07/06/2022 Imm Admin: COVID-19 vaccine, age 12+ yr, bivalent (PFIZER-BIONTECH) 12/04/2021 Imm Admin: COVID-19 original vaccine, age 12+ yr, monovalent ([employer]-BIONTECH - PLATT TOP) Only the first 3 history entries have been loaded, but more history exists. CHIEF COMPLAINT: Pre-op exam HPI: Susan Chandler is a 78 year old seen for PAC due to scheduled above surgery because right shoulder OA. 01/20/2024, Dr. Tatiana Sutherland CHIEF COMPLAINT: right shoulder rotator cuff tear PAIN EVALUATION No data found in the last 1 encounters. Susan Chandler is a 78 year old female presents to clinic with right shoulder pain. She has had pain and loss of range of motion for the last several years. She has had several injections through pain management without significant relief. She has undergone physical therapy. She takes meloxicam, gabapentin and pain patch. Treatments and therapies to-date include: Activity modification/changes to daily activities: Yes Medical management (Tylenol, NSAIDs): Yes Physical therapy within the past 6 months for at least 4 weeks: Yes Corticosteroid Injection: Yes - several REVIEW OF SYSTEMS: General: No weight loss, malaise or fevers. Neurological: No history of TIA's, stroke, CONDITIONER TUMBLER OPERATOR tumor, impaired sensorium, hemiplegia, paraplegia or quadraplegia. No neurological symptoms or problems. Respiratory: +former smoker 1-1.5ppd/60 years Positive for: COPD, obstructive sleep apnea and CPAP/BiPAP compliant. Negative for: asthma, pneumonia within 6 weeks, tobacco use and URI < 2 weeks. Cardiovascular: Positive for: anticoagulation therapy (ASA), hyperlipidemia (on rx) and hypertension (on rx) Negative for: arrhythmia, atrial fibrillation, CAD, chest pain, CHF, congenital heart defect, DVT/PE, recent IA, murmur/valvular heart disease, PVD, open heart surgery and valve surgery. GI: No history of GI symptoms or problems. No history of esophageal varices, recent ascites, or ETOH greater than 2 drinks per day. : No history of dysuria, frequency or incontinence, stones or chronic kidney disease. No difficulty urinating, nocturia > 1 time per night or hematuria. 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 Endocrine: Positive for: diabetes mellitus. Patient's diabetes mellitus is controlled by oral agents. Negative for: hypothyroidism. Hematology: Positive for: chronic anti-coagulation/platelet meds. Patient is on anti-coagulation/platelet medication(s): Aspirin. Negative for: anemia, bruises/bleeds easily and transfusion of at least 4 units within 72 hours prior to surgery. Oncology: No history of CA metastasis, chemo within 30 days, or radiotherapy within 90 days. No history of oncological symptoms or problems. Psych: Positive for: anxiety (on rx) and depression (on rx). Musculoskeletal: See HPI. Hx right TKA and revision +hx lumbar fusion and spinal stimulator, following pain management Positive for: joint pain. Skin: +psoriasis, following derm PAST MEDICAL HISTORY Diagnosis Date Anxiety disorder, unspecified 04/11/2023 Complete tear of right rotator cuff COPD (chronic obstructive pulmonary disease) ([facility]) Depressive disorder 05/19/2016 Essential (primary) hypertension 01/11/2023 Mild intermittent asthma Narcolepsy 09/19/2013 Neuropathy 02/06/2016 Osteoporosis 09/19/2013 Primary osteoarthritis of ankle 01/11/2023 Psoriasis vulgaris 12/21/2022 Tobacco use disorder 04/24/2020 Type 2 diabetes mellitus ([facility]) 08/19/2023 Unspecified atrial fibrillation ([facility]) 01/11/2023 PAST SURGICAL HISTORY Procedure Laterality Date TOTAL HIP REPLACEMENT Left 12/2022 History reviewed. No pertinent family history. Social History Tobacco Use Smoking status: Former Types: Cigarettes Smokeless tobacco: Never Vaping Use Vaping Use: Never used Substance Use Topics Alcohol use: Never Drug use: Never Prior to Admission medications as of 02/10/24 1010 Medication Sig Last Dose Taking calcium polycarbophil (FIBERCON) 625 mg tablet Take 625 mg by mouth once daily. Taking Yes buprenorphine (BUTRANS) 15 mcg/hour patch Apply 1 patch to skin every 7 days. Remove old patch. Taking Yes FARXIGA 10 mg tablet Take 1 tablet by mouth every afternoon. Taking Yes valsartan (DIOVAN) 160 mg tablet Take 160 mg by mouth once daily. Taking Yes meloxicam (MOBIC) 7.5 mg tablet Take 7.5 mg by mouth once daily. Taking Yes rosuvastatin (CRESTOR) 10 mg tablet Take 10 mg by mouth every evening. Taking Yes traMADol (ULTRAM) 50 mg tablet Take 50 mg by mouth every 6 hours as needed for pain. Taking Yes buPROPion SR (WELLBUTRIN SR) 150 mg 12 hr tablet Take 150 mg by mouth every 12 hours. Taking Yes calcium carbonate (CALTRATE) 600 mg calcium (1,500 mg) tab Take 600 mg by mouth once daily. Taking Yes atenolol (TENORMIN) 50 mg tablet Taking Yes escitalopram oxalate (LEXAPRO) 10 mg tablet Taking Yes gabapentin (NEURONTIN) 300 mg capsule Take 300 mg by mouth three times daily. Taking Yes aspirin, enteric coated (ASPIRIN, ENTERIC COATED) 81 mg EC tablet Take 81 mg by mouth once daily. Taking Yes traZODone (DESYREL) 50 mg tablet TAKE 2 TABLETS BY MOUTH EVERY DAY AT BEDTIME Taking Yes mupirocin (BACTROBAN) 2 % ointment Apply 0.5 inch with cotton swab (Q-tip) to each nostril in the morning and evening for 5 days prior to and including day of surgery. No medication comments found. ALLERGIES Allergen Reactions Penicillins Hives Percocet [Oxycodone* Itching Vicodin [Hydrocodon* Hives Objective PHYSICAL EXAM: General: alert and oriented (x3), healthy appearance and obese. Pertinent negatives noted - not distressed. Skin: normal color, no rash or lesions. HEENT: EOM intact and pupils equal round. Pertinent negatives noted - no carotid bruit. Cardiovascular: regular rate and rhythm, normal S1 and S2, no rub, murmurs, or gallop. Respiratory: normal breath sounds, no wheezes or crackles. No chest wall deformity or tenderness. Abdomen: soft. Pertinent negatives noted - not tender. Extremities: no deformity, no edema or tenderness, no joint swelling or clubbing. Neurological: normal cognition and motor skills. Gait normal. No weakness or sensory deficit. PAIN ASSESSMENT: Pain Pain Level: 5 Pain Location: Shoulder-Right Description: Aching, Sharp Duration Amount of Time: 2 Duration Units: Years Frequency: Continuous Intervention/Comfort measure: Medication VITALS: BP 130/72 Pulse 58 Temp (Src) 98.1 (Temporal) Resp 14 Ht 5' 0 (1.52m) Wt 192 lb (87.1kg) SpO2 96% BMI 37.50 kg/(m^2). Diagnostic tests reviewed for today's visit: Lab Value Units Date High Low HB No results within date range. HCT No results within date range. WBC No results within date range. PLT No results within date range. NA No results within date range. K No results within date range. GLUC No results within date range. BUN No results within date range. CREAT No results within date range. PTSEC No results within date range. INR No results within date range. APTT No results within date range. ALT No results within date range. AST No results within date range. TBILI No results within date range. TSH No results within date range. Lab Value Units Date High Low HCGQT No results within date range. UHCG No results within date range. HCG, BODY* No results within date range. Lab Value Units Date High Low ABORHD No results within date range. ABSCREEN No results within date range. No results found for: HBA1C Recent Results (from the past 8760 hour(s)) ECG COMPLETE Collection Time: 02/10/24 9:28 AM Result Value Ventricular Rate 54 Atrial Rate 54 P-R Interval 164 QRS Duration 122 QT Interval 446 QTC Calculation (Bazett) 422 Calculated P [place] 55 Calculated R [place] 55 Calculated T [place] 32 Impression SINUS BRADYCARDIA WITH SINUS ARRHYTHMIA COMPLETE RIGHT BUNDLE BRANCH BLOCK CANNOT EXCLUDE INFERIOR MYOCARDIAL INFARCTION , AGE UNDETERMINED ABNORMAL ECG No results found for this or any previous visit (from the past 97391 hour(s)). Instructions Given to Patient: Instructions located in the after visit summary. Patient given verbal and written preop instructions and voices comprehension and compliance. SIGNATURE: Nestor Ruby APRN.CNP PATIENT NAME: Susan Chandler DATE: February 10, 2024 TIME: 9:29 AM PAGER/CONTACT #: [facility] 02-10-2024 History and physical note Images from the original note were not included. [facility] HISTORY AND PHYSICAL EXAMINATION SERVICE DATE: 02/10/2024 SERVICE TIME: 10:22 AM PRIMARY CARE PHYSICIAN: Terrance Alonso MD, MD Assessment Patient has the following medical conditions which may affect vinod-operative course: Essential (primary) hypertension Assessment: controlled on rx Last 14 BP Last 14 Encounter BP Readings: Date: BP: 02/10/2024 130/72 04/01/2023 122/78 03/27/2023 124/80 11/10/2021 130/78 History of tobacco use Assessment: 1-1.5ppd/60 years COPD (chronic obstructive pulmonary disease) ([facility]) Assessment: uses no inhalers, following Dr. Kinney at [facility], records requested Depressive disorder Assessment: and anxiety, stable on rx per pt Mixed hyperlipidemia Assessment: c/w statin RBBB Assessment: per EKG, no previous to compare Abnormal EKG Assessment: echo and Lexiscan ordered Today's EKG, no previous EKG's to compare to SINUS BRADYCARDIA WITH SINUS ARRHYTHMIA COMPLETE RIGHT BUNDLE BRANCH BLOCK CANNOT EXCLUDE INFERIOR MYOCARDIAL INFARCTION , AGE UNDETERMINED ABNORMAL ECG Class 2 severe obesity due to excess calories with serious comorbidity and body mass index (BMI) of 37.0 to 37.9 in adult ([facility]) Assessment: Body mass index is 37.5 kg/m . JEANNIE (obstructive sleep apnea) Assessment: c/w CPAP Type 2 diabetes mellitus without complication, without long-term current use of insulin ([facility]) Assessment: controlled on oral agent, new A1c pending Brady Activity Status Index: METS: Climb a flight of stairs or walk up a hill (5.50 METs) DASI Score: 5.5 Patient denies any chest pain or undue shortness of breath with the above physical activity. Clinical Frailty Scale: 3. Well, with treated comorbid disease STOP-Bang Score: Snores loudly Has or is being treated for high blood pressure BMI greater than 35 kg/m^2 Patient over 50 years old Has a large neck Denies feeling tired, fatigued, or sleepy during the daytime Has not been observed to stop breathing or choking/gasping during sleep Non-male patient STOP-Bang Score: 5 [id number] Score: Age: >=75 Sex: female CHF history: No Hypertension history: Yes Stroke/TIA/thromboembolism history: No Vascular disease history: No Diabetes history: Yes [id number] Score: 5 ARISCAT Score: Age: 51-80 Preoperative SpO2: >=96% Respiratory infection in the last month: No Preoperative anemia: Yes Surgical incision: peripheral Duration of surgery: <2 hrs Emergency procedure: No ARISCAT Score: 14 ANESTHESIA FINDINGS: Intubation History: No history of difficult intubation Significant Anesthesia Considerations: none Airway History: No history of difficult airway I - PHYSICAL EVALUATION AIRWAY Patient intubated: No. Tracheostomy tube not present Mallampati: III. TM distance: >3 FB. Neck ROM: full ROM without neurological symptoms. Mouth opening: adequate. Short neck: yes. Thick neck: yes Crain present: no Lip Bite Test: I Microretrognathia/Micronagthia/R ecessed Chin: No DENTAL Dental findings: teeth intact. II - ANESTHESIA PLAN Anesthetic Plan: other Beta Gerardo Monitoring Plan Post Procedure Analgesic Plan Informed Consent Anesthetic risks, benefits, alternatives, personnel and consent discussed: yes. Patient / Responsible Alliance Party agrees to proceed: yes Patient / Surrogate agrees to blood products: blood products not planned Discussed the possibility of lip / dental damage: yes Prepared for Surgery: optimally prepared for surgery, pending [see comment]. Labs ,EKG, echo Dr. Kinney, pulmonary records requested CONSULTS: Patient does not require consults for optimization at this time Planned Anesthetic: other anesthesia choice The Following Tests/Procedures Have Been Initiated: Orders Placed This Encounter NM CARDIAC PERF STRESS/PHARM Standing Status: Future Standing Expiration Date: 03/11/2025 Order Specific Question: What stress agent will be used? Answer: Regadenoson >CBC + AUTO DIFF Standing Status: Future Standing Expiration Date: 05/11/2024 >CMP Standing Status: Future Standing Expiration Date: 05/11/2024 >HGB A1c (Today or soon) Standing Status: Future Standing Expiration Date: 05/11/2024 calcium polycarbophil (FIBERCON) 625 mg tablet Sig: Take 625 mg by mouth once daily. buprenorphine (BUTRANS) 15 mcg/hour patch Sig: Apply 1 patch to skin every 7 days. Remove old patch. mupirocin (BACTROBAN) 2 % ointment Sig: Apply 0.5 inch with cotton swab (Q-tip) to each nostril in the morning and evening for 5 days prior to and including day of surgery. Dispense: 22 g Refill: 0 ECG COMPLETE Order Comments: Ordered by an unspecified provider ECG COMPLETE Standing Status: Future Standing Expiration Date: 02/09/2025 ECHO Standing Status: Future Standing Expiration Date: 02/09/2025 Order Specific Question: Disease / Condition: Answer: Abnormal Test Result Order Specific Question: Indication: Answer: Abnormal ECG REASON FOR VISIT: Susan Chandler is a 78 year old female who is scheduled for Procedure(s): REVERSE TOTAL SHOULDER ARTHROPLASTY (Right) at the request of Dr. Tatiana Sutherland for consultation. My final recommendation will be communicated back to the requesting physician by way of shared medical record or letter. Subjective The patient has the following: ACTIVE PROBLEM LIST Mild Intermittent Asthma, Uncomplicated Essential (Primary) Hypertension Depressive Disorder History of Tobacco Use Copd (Chronic Obstructive Pulmonary Disease) ([facility]) Mixed Hyperlipidemia Rbbb Abnormal Ekg Class 2 Severe Obesity Due to Excess Calories With Serious Comorbidity and Body Mass Index (Bmi) of 37.0 to 37.9 in Adult ([facility]) Jeannie (Obstructive Sleep Apnea) Type 2 Diabetes Mellitus Without Complication, Without Long-Term Current Use of Insulin ([facility]) COVID-19 Immunization Status Overdue - Covid-19 Vaccine ( season) Overdue since 10/06/2023 06/05/2023 Imm Admin: COVID-19 vaccine, age 12+ yr, season ([facility]) 07/06/2022 Imm Admin: COVID-19 vaccine, age 12+ yr, bivalent ([facility]) 12/04/2021 Imm Admin: COVID-19 original vaccine, age 12+ yr, monovalent ([facility] - [facility]) Only the first 3 history entries have been loaded, but more history exists. CHIEF COMPLAINT: Pre-op exam HPI: Susan Chandler is a 78 year old seen for PAC due to scheduled above surgery because right shoulder OA. 01/20/2024, Dr. Tatiana Sutherland CHIEF COMPLAINT: right shoulder rotator cuff tear PAIN EVALUATION No data found in the last 1 encounters. Susan Chandler is a 78 year old female presents to clinic with right shoulder pain. She has had pain and loss of range of motion for the last several years. She has had several injections through pain management without significant relief. She has undergone physical therapy. She takes meloxicam, gabapentin and pain patch. Treatments and therapies to-date include: Activity modification/changes to daily activities: Yes Medical management (Tylenol, NSAIDs): Yes Physical therapy within the past 6 months for at least 4 weeks: Yes Corticosteroid Injection: Yes - several REVIEW OF SYSTEMS: General: No weight loss, malaise or fevers. Neurological: No history of TIA's, stroke, CONDITIONER TUMBLER OPERATOR tumor, impaired sensorium, hemiplegia, paraplegia or quadraplegia. No neurological symptoms or problems. Respiratory: +former smoker 1-1.5ppd/60 years Positive for: COPD, obstructive sleep apnea and CPAP/BiPAP compliant. Negative for: asthma, pneumonia within 6 weeks, tobacco use and URI < 2 weeks. Cardiovascular: Positive for: anticoagulation therapy (ASA), hyperlipidemia (on rx) and hypertension (on rx) Negative for: arrhythmia, atrial fibrillation, CAD, chest pain, CHF, congenital heart defect, DVT/PE, recent IA, murmur/valvular heart disease, PVD, open heart surgery and valve surgery. GI: No history of GI symptoms or problems. No history of esophageal varices, recent ascites, or ETOH greater than 2 drinks per day. : No history of dysuria, frequency or incontinence, stones or chronic kidney disease. No difficulty urinating, nocturia > 1 time per night or hematuria. 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 Endocrine: Positive for: diabetes mellitus. Patient's diabetes mellitus is controlled by oral agents. Negative for: hypothyroidism. Hematology: Positive for: chronic anti-coagulation/platelet meds. Patient is on anti-coagulation/platelet medication(s): Aspirin. Negative for: anemia, bruises/bleeds easily and transfusion of at least 4 units within 72 hours prior to surgery. Oncology: No history of CA metastasis, chemo within 30 days, or radiotherapy within 90 days. No history of oncological symptoms or problems. Psych: Positive for: anxiety (on rx) and depression (on rx). Musculoskeletal: See HPI. Hx right TKA and revision +hx lumbar fusion and spinal stimulator, following pain management Positive for: joint pain. Skin: +psoriasis, following derm PAST MEDICAL HISTORY Diagnosis Date Anxiety disorder, unspecified 04/11/2023 Complete tear of right rotator cuff COPD (chronic obstructive pulmonary disease) ([facility]) Depressive disorder 05/19/2016 Essential (primary) hypertension 01/11/2023 Mild intermittent asthma Narcolepsy 09/19/2013 Neuropathy 02/06/2016 Osteoporosis 09/19/2013 Primary osteoarthritis of ankle 01/11/2023 Psoriasis vulgaris 12/21/2022 Tobacco use disorder 04/24/2020 Type 2 diabetes mellitus ([facility]) 08/19/2023 Unspecified atrial fibrillation ([facility]) 01/11/2023 PAST SURGICAL HISTORY Procedure Laterality Date TOTAL HIP REPLACEMENT Left 12/2022 History reviewed. No pertinent family history. Social History Tobacco Use Smoking status: Former Types: Cigarettes Smokeless tobacco: Never Vaping Use Vaping Use: Never used Substance Use Topics Alcohol use: Never Drug use: Never Prior to Admission medications as of 02/10/24 1010 Medication Sig Last Dose Taking calcium polycarbophil (FIBERCON) 625 mg tablet Take 625 mg by mouth once daily. Taking Yes buprenorphine (BUTRANS) 15 mcg/hour patch Apply 1 patch to skin every 7 days. Remove old patch. Taking Yes FARXIGA 10 mg tablet Take 1 tablet by mouth every afternoon. Taking Yes valsartan (DIOVAN) 160 mg tablet Take 160 mg by mouth once daily. Taking Yes meloxicam (MOBIC) 7.5 mg tablet Take 7.5 mg by mouth once daily. Taking Yes rosuvastatin (CRESTOR) 10 mg tablet Take 10 mg by mouth every evening. Taking Yes traMADol (ULTRAM) 50 mg tablet Take 50 mg by mouth every 6 hours as needed for pain. Taking Yes buPROPion SR (WELLBUTRIN SR) 150 mg 12 hr tablet Take 150 mg by mouth every 12 hours. Taking Yes calcium carbonate (CALTRATE) 600 mg calcium (1,500 mg) tab Take 600 mg by mouth once daily. Taking Yes atenolol (TENORMIN) 50 mg tablet Taking Yes escitalopram oxalate (LEXAPRO) 10 mg tablet Taking Yes gabapentin (NEURONTIN) 300 mg capsule Take 300 mg by mouth three times daily. Taking Yes aspirin, enteric coated (ASPIRIN, ENTERIC COATED) 81 mg EC tablet Take 81 mg by mouth once daily. Taking Yes traZODone (DESYREL) 50 mg tablet TAKE 2 TABLETS BY MOUTH EVERY DAY AT BEDTIME Taking Yes mupirocin (BACTROBAN) 2 % ointment Apply 0.5 inch with cotton swab (Q-tip) to each nostril in the morning and evening for 5 days prior to and including day of surgery. No medication comments found. ALLERGIES Allergen Reactions Penicillins Hives Percocet [Oxycodone* Itching Vicodin [Hydrocodon* Hives Objective PHYSICAL EXAM: General: alert and oriented (x3), healthy appearance and obese. Pertinent negatives noted - not distressed. Skin: normal color, no rash or lesions. HEENT: EOM intact and pupils equal round. Pertinent negatives noted - no carotid bruit. Cardiovascular: regular rate and rhythm, normal S1 and S2, no rub, murmurs, or gallop. Respiratory: normal breath sounds, no wheezes or crackles. No chest wall deformity or tenderness. Abdomen: soft. Pertinent negatives noted - not tender. Extremities: no deformity, no edema or tenderness, no joint swelling or clubbing. Neurological: normal cognition and motor skills. Gait normal. No weakness or sensory deficit. PAIN ASSESSMENT: Pain Pain Level: 5 Pain Location: Shoulder-Right Description: Aching, Sharp Duration Amount of Time: 2 Duration Units: Years Frequency: Continuous Intervention/Comfort measure: Medication VITALS: BP 130/72 Pulse 58 Temp (Src) 98.1 (Temporal) Resp 14 Ht 5' 0 (1.52m) Wt 192 lb (87.1kg) SpO2 96% BMI 37.50 kg/(m^2). Diagnostic tests reviewed for today's visit: Lab Value Units Date High Low HB No results within date range. HCT No results within date range. WBC No results within date range. PLT No results within date range. NA No results within date range. K No results within date range. GLUC No results within date range. BUN No results within date range. CREAT No results within date range. PTSEC No results within date range. INR No results within date range. APTT No results within date range. ALT No results within date range. AST No results within date range. TBILI No results within date range. TSH No results within date range. Lab Value Units Date High Low HCGQT No results within date range. UHCG No results within date range. HCG, BODY* No results within date range. Lab Value Units Date High Low ABORHD No results within date range. ABSCREEN No results within date range. No results found for: HBA1C Recent Results (from the past 8760 hour(s)) ECG COMPLETE Collection Time: 02/10/24 9:28 AM Result Value Ventricular Rate 54 Atrial Rate 54 P-R Interval 164 QRS Duration 122 QT Interval 446 QTC Calculation (Bazett) 422 Calculated P [place] 55 Calculated R [place] 55 Calculated T [place] 32 Impression SINUS BRADYCARDIA WITH SINUS ARRHYTHMIA COMPLETE RIGHT BUNDLE BRANCH BLOCK CANNOT EXCLUDE INFERIOR MYOCARDIAL INFARCTION , AGE UNDETERMINED ABNORMAL ECG No results found for this or any previous visit (from the past 76736 hour(s)). Instructions Given to Patient: Instructions located in the after visit summary. Patient given verbal and written preop instructions and voices comprehension and compliance. SIGNATURE: Nestor Ruby APRN.CNP PATIENT NAME: Susan Chandler DATE: February 10, 2024 TIME: 9:29 AM PAGER/CONTACT #: documented in this encounter [facility] 02-03-2024 Telephone encounter Note Patient returned call and received the previous message. She voiced understanding and was provided date, time, and location of post op physical therapy appointment. [facility] 02-03-2024 Miscellaneous Notes Patient returned call and received the previous message. She voiced understanding and was provided date, time, and location of post op physical therapy appointment. Called patient and left message. Postop PT scheduled for 02/26 @ 3:30 pm at the [place] location. Patient is having surgery on 02-20-2024. Please reach out and schedule for physical therapy one week post-op. Patient lives in [place]. Patient would more than like probably want to go out there for therapy. Thank you. Ifrah Pelayo documented in this encounter [facility] 02-03-2024 Telephone encounter Note Called patient and left message. Postop PT scheduled for 02/26 @ 3:30 pm at the [place] location. [facility] 02-03-2024 Telephone encounter Note Patient is having surgery on 02-20-2024. Please reach out and schedule for physical therapy one week post-op. Patient lives in [place]. Patient would more than like probably want to go out there for therapy. Thank you. Ifrah Pelayo [facility] 01-27-2024 Note Addended by: JENS ACEVDEO on: 01/27/2024 11:19 AM Modules accepted: Orders [facility] Work Phone: 01-27-2024 Miscellaneous Notes Addended by: JENS ACEVEDO on: 01/27/2024 11:19 AM Modules accepted: Orders documented in this encounter [facility] 01-20-2024 History of Presen t illness Narrative ORTHOPAEDIC SHOULDER & ELBOW SERVICE HISTORY & PHYSICAL EXAM REFERRING PROVIDER: Orin Venegas [facility] [id number] CHIEF COMPLAINT: right shoulder rotator cuff tear PAIN EVALUATION No data found in the last 1 encounters. Susan Chandler is a 78 year old female presents to clinic with right shoulder pain. She has had pain and loss of range of motion for the last several years. She has had several injections through pain management without significant relief. She has undergone physical therapy. She takes meloxicam, gabapentin and pain patch. Treatments and therapies to-date include: Activity modification/changes to daily activities: Yes Medical management (Tylenol, NSAIDs): Yes Physical therapy within the past 6 months for at least 4 weeks: Yes Corticosteroid Injection: Yes - several PAST MEDICAL HISTORY: No past medical history on file. PAST SURGICAL HISTORY: No past surgical history on file. SOCIAL HISTORY: Social History Tobacco Use Smoking status: Former Types: Cigarettes Smokeless tobacco: Never Vaping Use Vaping Use: Never used Substance Use Topics Alcohol use: Never Drug use: Never ALLERGIES: ALLERGIES Allergen Reactions Penicillins Hives Percocet [Oxycodone* Itching Vicodin [Hydrocodon* Hives MEDICATIONS: Current Outpatient Medications on File Prior to Visit Medication Sig FARXIGA 10 mg tablet Take 1 tablet by mouth every afternoon. valsartan (DIOVAN) 160 mg tablet Take 160 mg by mouth once daily. meloxicam (MOBIC) 7.5 mg tablet Take 7.5 mg by mouth once daily. rosuvastatin (CRESTOR) 10 mg tablet Take 10 mg by mouth every evening. traMADol (ULTRAM) 50 mg tablet Take 50 mg by mouth every 6 hours as needed for pain. buPROPion SR (WELLBUTRIN SR) 150 mg 12 hr tablet Take 150 mg by mouth every 12 hours. calcium carbonate (CALTRATE) 600 mg calcium (1,500 mg) tab Take 600 mg by mouth once daily. benzonatate (TESSALON PERLE) 100 mg capsule Take 2 capsules by mouth three times daily as needed. (Patient not taking: Reported on 12/23/2023) albuterol HFA (PROAIR HFA) 90 mcg/actuation inhaler Inhale 2 Puffs as instructed every 4 hours as needed. (Patient not taking: Reported on 12/23/2023) albuterol HFA (PROVENTIL HFA, VENTOLIN HFA) 90 mcg/actuation inhaler INHALE 2 (TWO) PUFFS EVERY 4 HOURS NEEDED (Patient not taking: Reported on 12/23/2023) atenolol (TENORMIN) 50 mg tablet escitalopram oxalate (LEXAPRO) 10 mg tablet diclofenac (VOLTAREN) 1 % topical gel Apply 2 gm to affected area 3 times a day gabapentin (NEURONTIN) 300 mg capsule Take 300 mg by mouth three times daily. metFORMIN (GLUCOPHAGE) 500 mg tablet (Patient not taking: Reported on 12/23/2023) nabumetone (RELAFEN) 750 mg tablet Take 750 mg by mouth twice daily. TAKE WITH FOOD. (Patient not taking: Reported on 12/23/2023) aspirin, enteric coated (ASPIRIN, ENTERIC COATED) 81 mg EC tablet Take 81 mg by mouth once daily. traZODone (DESYREL) 50 mg tablet TAKE 2 TABLETS BY MOUTH EVERY DAY AT BEDTIME No current facility-administered medications on file prior to visit. PHYSICAL EXAMINATION: There were no vitals taken for this visit. EXAM: Shoulder Musculoskeletal Exam Inspection Right Right shoulder inspection is normal. Palpation Right Tenderness: present Anterior shoulder: mild Range of Motion Right Active ROM: abnormal and pain. Active forward elevation: 90. Passive forward elevation: 90. Shoulder active abduction: 90. Passive abduction: 90. Active external rotation at side: 60. Internal rotation: sacrum. Strength Right External rotation: 4/5. Internal rotation: 4+/5. Abduction: 4-/5. Abduction is affected by pain. Neurovascular Right Right shoulder nerve sensation is normal. Scapula Right Right shoulder scapula is normal. Special Tests Right Rotator Cuff Signs Neer's test: positive Davidson test: positive Supraspinatus: positive Belly press test: negative Painful arc test: positive Lift-off sign: negative Bear hug test: negative Drop arm test: negative Biceps/ирина Signs Bethany's test: positive Charli deformity: negative AC Joint Signs Active horizontal adduction pain: negative Instability Signs Joint laxity: negative IMAGING: I personally reviewed the MRI of the right shoulder in the office today, and I am in agreement with the radiologist's interpretation with the following modifications: Complete supraspinatus tendon tear with retraction MEDICAL DECISION MAKING: (M75.121) Complete tear of right rotator cuff, unspecified whether traumatic (primary encounter diagnosis) Comment: Plan: Susan Chandler presents today with painful weakness of the right shoulder due to a large, retracted rotator cuff tear. Based on my evaluation today, I do not feel that nonsurgical interventions including physical therapy, activity modification, and medical management are likely to provide this patient with an acceptable level of improvement in functional use of the arm, nor significant pain relief. After thorough review of history, examination findings, and imaging, we discussed surgical intervention today which would be reverse total shoulder arthroplasty. I described the procedure in detail as well as the expected healing time of 3-6 months and physical therapy regimen following surgery, likely for much of this time. Informed consent was discussed in detail and signed in the office today. Significant risks of surgery including those of general anesthesia, and those from surgery including infection, nerve injury, bleeding, procedure failure and possible need for repeat procedure were all discussed at the time of consent. No guarantees as to the outcome of surgery were given or implied. Surgery will be scheduled for the next available date. Medical decision making for today's visit was conducted with review of the following data sources: History, exam, imaging REFERRING PHYSICIAN: The patient was referred to tn for consultation by the following physician. This consultation note will be sent to the following physician by either mail or electronic medical record. Orin Casas [address] [phone] Tatiana Sutherland MD Shoulder & Elbow Surgeon Department of Orthopaedic Surgery [facility] documented in this encounter [facility] 01-20-2024 Note HNO ID: [id number] Author: TATIANA SUTHERLAND MD Service: ? Author Type: Physician Type: Progress Notes Filed: 01/20/2024 12:26 Note Text: ORTHOPAEDIC SHOULDER AND ELBOW SERVICE HISTORY AND PHYSICAL EXAM REFERRING PROVIDER: Orin Casas [address] [phone] CHIEF COMPLAINT: right shoulder rotator cuff tear PAIN EVALUATION No data found in the last 1 encounters. Susan Chandler is a 78 year old female presents to clinic with right shoulder pain. She has had pain and loss of range of motion for the last several years. She has had several injections through pain management without significant relief. She has undergone physical therapy. She takes meloxicam, gabapentin and pain patch. Treatments and therapies to-date include: Activity modification/changes to daily activities: Yes Medical management (Tylenol, NSAIDs): Yes Physical therapy within the past 6 months for at least 4 weeks: Yes Corticosteroid Injection: Yes - several PAST MEDICAL HISTORY: No past medical history on file. PAST SURGICAL HISTORY: No past surgical history on file. SOCIAL HISTORY: Social History Tobacco Use Smoking status: Former Types: Cigarettes Smokeless tobacco: Never Vaping Use Vaping Use: Never used Substance Use Topics Alcohol use: Never Drug use: Never ALLERGIES: ALLERGIES Allergen Reactions Penicillins Hives Percocet [Oxycodone* Itching Vicodin [Hydrocodon* Hives MEDICATIONS: Current Outpatient Medications on File Prior to Visit Medication Sig FARXIGA 10 mg tablet Take 1 tablet by mouth every afternoon. valsartan (DIOVAN) 160 mg tablet Take 160 mg by mouth once daily. meloxicam (MOBIC) 7.5 mg tablet Take 7.5 mg by mouth once daily. rosuvastatin (CRESTOR) 10 mg tablet Take 10 mg by mouth every evening. traMADol (ULTRAM) 50 mg tablet Take 50 mg by mouth every 6 hours as needed for pain. buPROPion SR (WELLBUTRIN SR) 150 mg 12 hr tablet Take 150 mg by mouth every 12 hours. calcium carbonate (CALTRATE) 600 mg calcium (1,500 mg) tab Take 600 mg by mouth once daily. benzonatate (TESSALON PERLE) 100 mg capsule Take 2 capsules by mouth three times daily as needed. (Patient not taking: Reported on 12/23/2023) albuterol HFA (PROAIR HFA) 90 mcg/actuation inhaler Inhale 2 Puffs as instructed every 4 hours as needed. (Patient not taking: Reported on 12/23/2023) albuterol HFA (PROVENTIL HFA, VENTOLIN HFA) 90 mcg/actuation inhaler INHALE 2 (TWO) PUFFS EVERY 4 HOURS NEEDED (Patient not taking: Reported on 12/23/2023) atenolol (TENORMIN) 50 mg tablet escitalopram oxalate (LEXAPRO) 10 mg tablet diclofenac (VOLTAREN) 1 % topical gel Apply 2 gm to affected area 3 times a day gabapentin (NEURONTIN) 300 mg capsule Take 300 mg by mouth three times daily. metFORMIN (GLUCOPHAGE) 500 mg tablet (Patient not taking: Reported on 12/23/2023) nabumetone (RELAFEN) 750 mg tablet Take 750 mg by mouth twice daily. TAKE WITH FOOD. (Patient not taking: Reported on 12/23/2023) aspirin, enteric coated (ASPIRIN, ENTERIC COATED) 81 mg EC tablet Take 81 mg by mouth once daily. traZODone (DESYREL) 50 mg tablet TAKE 2 TABLETS BY MOUTH EVERY DAY AT BEDTIME No current facility-administered medications on file prior to visit. PHYSICAL EXAMINATION: There were no vitals taken for this visit. EXAM: Shoulder Musculoskeletal Exam Inspection Right Right shoulder inspection is normal. Palpation Right Tenderness: present Anterior shoulder: mild Range of Motion Right Active ROM: abnormal and pain. Active forward elevation: 90. Passive forward elevation: 90. Shoulder active abduction: 90. Passive abduction: 90. Active external rotation at side: 60. Internal rotation: sacrum. Strength Right External rotation: 4/5. Internal rotation: 4+/5. Abduction: 4-/5. Abduction is affected by pain. Neurovascular Right Right shoulder nerve sensation is normal. Scapula Right Right shoulder scapula is normal. Special Tests Right Rotator Cuff Signs Neer's test: positive Davidson test: positive Supraspinatus: positive Belly press test: negative Painful arc test: positive Lift-off sign: negative Bear hug test: negative Drop arm test: negative Biceps/ирина Signs Bethany's test: positive Charli deformity: negative AC Joint Signs Active horizontal adduction pain: negative Instability Signs Joint laxity: negative IMAGING: I personally reviewed the MRI of the right shoulder in the office today, and I am in agreement with the radiologist's interpretation with the following modifications: Complete supraspinatus tendon tear with retraction MEDICAL DECISION MAKING: (M75.121) Complete tear of right rotator cuff, unspecified whether traumatic (primary encounter diagnosis) Comment: Plan: Susan Chandler presents today with painful weakness of the right shoulder due to a large, retracted rotator cuff tear. Based on my evaluation today, I do no (more content not included)... [facility] 12-23-2023 Note HNO ID: [id number] Author: ORIN CASAS PA-C Service: ? Author Type: Physician Covered Button Maker Type: Progress Notes Filed: 12/23/2023 09:25 Note Text: Orin Casas PA-C Department of Orthopaedics Orthopaedics [address] [facility] [address] Dept: [phone] Dept December 23, 2023 CHIEF COMPLAINT: Pain of the Right Shoulder Ms. Susan Chandler is a 78 year old female who presents with pain in her right shoulder which has been getting progressively worse for about the past 2 years. She denies any injury. Pain today is a 3 out of 10 sharp, aching in the biceps region which radiates up into the neck. She participated in physical therapy without relief. She has been taking tramadol and Tylenol which is not helping. It is unclear whether she is take any type of an oral NSAID to help with shoulder pain. She reports that she has had 2-3 corticosteroid injections with a provider at [facility], injections were not beneficial. Patient is right-hand dominant. She had an MRI at [facility]. ASSESSMENT: M75.121 Complete tear of right rotator cuff, unspecified whether traumatic (primary encounter diagnosis) M19.011 Glenohumeral arthritis, right PLAN: Unfortunately I am unable to open the MRI disc, I do have the MRI report. She has a retracted full-thickness tear of the supraspinatus, tendon is retracted back to the glenoid level. She also ruptured her long biceps tendon, has some glenohumeral and AC joint arthritis. Based on just the report I am not sure that her rotator cuff would be repairable. We discussed getting her into one of our shoulder surgeons to discuss her surgical options- reverse shoulder. Ms. Susan Chandler was advised as to contrast therapies and/or to take analgesics/anti-inflammatories as needed and all contraindications were reviewed. OBJECTIVE: Ms. Susan Chandler is a pleasant 78 year old in no apparent distress. Gen:There were no vitals taken for this visit. nl development, obese, no deformities ENT: Normocephalic, normal hearing, moist mucosa CV: Pulses:Radial= 2+ and symmetric, capillary refill < 2 secs, no peripheral edema/varicosities Skin: no rash, bruising or lesions. Good turgor. Psych: cooperative and appropriate, alert and oriented x 3, good mood and affect. Musculoskeletal: Supple range of motion of the cervical spine without pain. Spurling signs are negative. No atrophy of the deltoid and shoulder musculature. Right shoulder is nontender to palpation over the SC joint and clavicle. Tenderness over the AC joint. Positive tenderness to palpation over the posterior shoulder, tender over the anterior lateral corner of the shoulder and greater tuberosity. Tender at the bicipital groove and coracoid. Active range of motion is 130 degrees of forward elevation, 35 degrees external rotation, and internal rotation to the lower lumbar spine. Passive range of motion is 145 degrees, 45 degrees, respectively. No laxity with anterior and posterior stress. Positive Neer and positive Davidson impingement signs. 4+/5 strength with supraspinatus, infraspinatus and 5/5 strength testing with subscapularis. 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 Grade 2 muscle fibrofatty infiltration. Microcytic partial interstitial intermediate grade tearing of the infraspinatus. Long head bicep tendon is not well-demonstrated, truncated and frayed superior labrum possible SLAP tear. Supporting Subjective Information Below: Past Surgical History: No past surgical history on file. Medications: Current Outpatient Medications Medication Sig FARXIGA 10 mg tablet Take 1 tablet by mouth every afternoon. valsartan (DIOVAN) 160 mg tablet Take 160 mg by mouth once daily. meloxicam (MOBIC) 7.5 mg tablet Take 7.5 mg by mouth once daily. rosuvastatin (CRESTOR) 10 mg tablet Take 10 mg by mouth every evening. traMADol (ULTRAM) 50 mg tablet Take 50 mg by mouth every 6 hours as needed for pain. buPROPion SR (WELLBUTRIN SR) 150 mg 12 hr tablet Take 150 mg by mouth every 12 hours. calcium carbonate (CALTRATE) 600 mg calcium (1,500 mg) tab Take 600 mg by mouth once daily. atenolol (TENORMIN) 50 mg tablet escitalopram oxalate (LEXAPRO) 10 mg tablet diclofenac (VOLTAREN) 1 % topical gel Apply 2 gm to affected area 3 times a day gabapentin (NEURONTIN) 300 mg capsule Take 300 mg by mouth three times daily. aspirin, enteric coated (ASPIRIN, ENTERIC COATED) 81 mg EC tablet Take 81 mg by mouth once daily. traZODone (DESYREL) 50 mg tablet TAKE 2 TABLETS BY MOUTH EVERY DAY AT BEDTIME benzonatate (TESSALON PERLE) 100 mg capsule Take 2 capsules by mouth three times daily as needed. (Patient not taking: Reported on 12/23/2023) albuterol HFA (PROAIR HFA) 90 mcg/actuation inhaler I (more content not included)... [facility] 12-23-2023 History of Presen t illness Narrative Orin Casas PA-C Department of Orthopaedics Orthopaedics [address] [facility] [address] Dept: [phone] Dept December 23, 2023 CHIEF COMPLAINT: Pain of the Right Shoulder Ms. Susan Chandler is a 78 year old female who presents with pain in her right shoulder which has been getting progressively worse for about the past 2 years. She denies any injury. Pain today is a 3 out of 10 sharp, aching in the biceps region which radiates up into the neck. She participated in physical therapy without relief. She has been taking tramadol and Tylenol which is not helping. It is unclear whether she is take any type of an oral NSAID to help with shoulder pain. She reports that she has had 2-3 corticosteroid injections with a provider at [facility], injections were not beneficial. Patient is right-hand dominant. She had an MRI at [facility]. ASSESSMENT: M75.121 Complete tear of right rotator cuff, unspecified whether traumatic (primary encounter diagnosis) M19.011 Glenohumeral arthritis, right PLAN: Unfortunately I am unable to open the MRI disc, I do have the MRI report. She has a retracted full-thickness tear of the supraspinatus, tendon is retracted back to the glenoid level. She also ruptured her long biceps tendon, has some glenohumeral and AC joint arthritis. Based on just the report I am not sure that her rotator cuff would be repairable. We discussed getting her into one of our shoulder surgeons to discuss her surgical options- reverse shoulder. Ms. Susan Chandler was advised as to contrast therapies and/or to take analgesics/anti-inflammatories as needed and all contraindications were reviewed. OBJECTIVE: Ms. Susan Chandler is a pleasant 78 year old in no apparent distress. Gen:There were no vitals taken for this visit. nl development, obese, no deformities ENT: Normocephalic, normal hearing, moist mucosa CV: Pulses:Radial= 2+ and symmetric, capillary refill < 2 secs, no peripheral edema/varicosities Skin: no rash, bruising or lesions. Good turgor. Psych: cooperative and appropriate, alert and oriented x 3, good mood and affect. Musculoskeletal: Supple range of motion of the cervical spine without pain. Spurling signs are negative. No atrophy of the deltoid and shoulder musculature. Right shoulder is nontender to palpation over the SC joint and clavicle. Tenderness over the AC joint. Positive tenderness to palpation over the posterior shoulder, tender over the anterior lateral corner of the shoulder and greater tuberosity. Tender at the bicipital groove and coracoid. Active range of motion is 130 degrees of forward elevation, 35 degrees external rotation, and internal rotation to the lower lumbar spine. Passive range of motion is 145 degrees, 45 degrees, respectively. No laxity with anterior and posterior stress. Positive Neer and positive Davidson impingement signs. 4+/5 strength with supraspinatus, infraspinatus and 5/5 strength testing with subscapularis. 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 Grade 2 muscle fibrofatty infiltration. Microcytic partial interstitial intermediate grade tearing of the infraspinatus. Long head bicep tendon is not well-demonstrated, truncated and frayed superior labrum possible SLAP tear. Supporting Subjective Information Below: Past Surgical History: No past surgical history on file. Medications: Current Outpatient Medications Medication Sig FARXIGA 10 mg tablet Take 1 tablet by mouth every afternoon. valsartan (DIOVAN) 160 mg tablet Take 160 mg by mouth once daily. meloxicam (MOBIC) 7.5 mg tablet Take 7.5 mg by mouth once daily. rosuvastatin (CRESTOR) 10 mg tablet Take 10 mg by mouth every evening. traMADol (ULTRAM) 50 mg tablet Take 50 mg by mouth every 6 hours as needed for pain. buPROPion SR (WELLBUTRIN SR) 150 mg 12 hr tablet Take 150 mg by mouth every 12 hours. calcium carbonate (CALTRATE) 600 mg calcium (1,500 mg) tab Take 600 mg by mouth once daily. atenolol (TENORMIN) 50 mg tablet escitalopram oxalate (LEXAPRO) 10 mg tablet diclofenac (VOLTAREN) 1 % topical gel Apply 2 gm to affected area 3 times a day gabapentin (NEURONTIN) 300 mg capsule Take 300 mg by mouth three times daily. aspirin, enteric coated (ASPIRIN, ENTERIC COATED) 81 mg EC tablet Take 81 mg by mouth once daily. traZODone (DESYREL) 50 mg tablet TAKE 2 TABLETS BY MOUTH EVERY DAY AT BEDTIME benzonatate (TESSALON PERLE) 100 mg capsule Take 2 capsules by mouth three times daily as needed. (Patient not taking: Reported on 12/23/2023) albuterol HFA (PROAIR HFA) 90 mcg/actuation inhaler Inhale 2 Puffs as instructed every 4 hours as needed. (Patient not taking: Reported on 12/23/2023) albuterol HFA (PROVENTIL HFA, VENTOLIN HFA) 90 mcg/actuation inhaler INHALE 2 (TWO) PUFFS EVERY 4 HOURS NEEDED (Patient not taking: Reported on 12/23/2023) metFORMIN (GLUCOPHAGE) 500 mg tablet (Patient not taking: Reported on 12/23/2023) nabumetone (RELAFEN) 750 mg tablet Take 750 mg by mouth twice daily. TAKE WITH FOOD. (Patient not taking: Reported on 12/23/2023) No current facility-administered medications for this visit. Allergies: Penicillins, Percocet [Oxycodone-Acetaminophen], and Vicodin [Hydrocodone-Acetaminophen] ROS: General (negative for fatigue, malaise, weight loss/gain) HEENT (negative for headache, earache, recent vision changes, sinus pain, sore throat) Respiratory (no recent shortness of breath, hemoptysis) CV (negative for chest tightness, palpitations) Musculoskeletal (see HPI) Psych (no depression, anxiety) This note was partially generated using The [employer] voice recognition system, and there may be some incorrect words, spellings, and punctuation that were not noted in checking the note before saving. Orin Casas PA-C AMB ROOMING INTAKE FLOWSHEET DATA Pain Pain Level: 3 Pain Location: Shoulder-Right Description: Aching, Sharp Duration Amount of Time: 2 Duration Units: Years Frequency: Continuous Intervention/Comfort measure: Medication Patient here today with right shoulder pain x 2 years. She denies any injury. She did PT several months ago without any relief. She is right hand dominant. Patient brought outside imaging for appointment today. documented in this encounter [facility] 12-23-2023 Note HNO ID: [id number] Author: LONA BENDER MA Service: ? Author Type: Frontload Driver Type: Progress Notes Filed: 12/23/2023 09:25 Note Text: AMB ROOMING INTAKE FLOWSHEET DATA Pain Pain Level: 3 Pain Location: Shoulder-Right Description: Aching, Sharp Duration Amount of Time: 2 Duration Units: Years Frequency: Continuous Intervention/Comfort measure: Medication Patient here today with right shoulder pain x 2 years. She denies any injury. She did PT several months ago without any relief. She is right hand dominant. Patient brought outside imaging for appointment today. [facility] 04-01-2023 History of Presen t illness Narrative Subjective HPI HPI Susan Chandler is a 77 year old female who presents today for CC of cough, wheezing. This started 2 weeks ago. Has tried a round of steroids and doxy without relief. Symptoms are worsened by nothing. Risk factors copd hx and current smoker. Sees pulmonology. .Patient presents with: Cough: Cough, chest congestion and wheezing x 2 weeks History reviewed. No pertinent past medical history. No past surgical history on file. ALLERGIES Penicillins, Percocet [Oxycodone-Acetaminophen], and Vicodin [Hydrocodone-Acetaminophen] MEDICATIONS predniSONE (DELTASONE) 10 mg tablet Take 4 tabs daily for 3 days, then 2 tabs daily for 3 days, then 1 tab daily for 3 days with food. albuterol HFA (PROAIR HFA) 90 mcg/actuation inhaler Inhale 2 Puffs as instructed every 4 hours as needed. doxycycline monohydrate 100 mg tablet Take 1 tablet by mouth twice daily for 7 days. albuterol HFA (PROVENTIL HFA, VENTOLIN HFA) 90 mcg/actuation inhaler INHALE 2 (TWO) PUFFS EVERY 4 HOURS NEEDED atenolol (TENORMIN) 50 mg tablet escitalopram oxalate (LEXAPRO) 10 mg tablet diclofenac (VOLTAREN) 1 % topical gel Apply 2 gm to affected area 3 times a day gabapentin (NEURONTIN) 300 mg capsule Take 300 mg by mouth three times daily. metFORMIN (GLUCOPHAGE) 500 mg tablet nabumetone (RELAFEN) 750 mg tablet Take 750 mg by mouth twice daily. TAKE WITH FOOD. aspirin, enteric coated (ASPIRIN, ENTERIC COATED) 81 mg EC tablet Take 81 mg by mouth once daily. traZODone (DESYREL) 50 mg tablet TAKE 2 TABLETS BY MOUTH EVERY DAY AT BEDTIME amoxicillin-clavulanic acid (AUGMENTIN) 875-125 mg per tablet Take 1 tablet by mouth twice daily for 7 days. benzonatate (TESSALON PERLE) 100 mg capsule Take 2 capsules by mouth three times daily as needed. No family history on file. Social History Tobacco Use Smoking status: Every Day Smokeless tobacco: Never Substance Use Topics Alcohol use: Never Drug use: Never ROS Objective Blood pressure 122/78, pulse 89, temperature 37.1 C (98.7 F), temperature source Tympanic, resp. rate 18, weight 77.2 kg (170 lb 3.2 oz), SpO2 93 %. Physical Exam Constitutional: General: She is not in acute distress. Appearance: She is not toxic-appearing or diaphoretic. HENT: Head: Normocephalic and atraumatic. Pulmonary: Effort: Accessory muscle usage (slight) present. No respiratory distress. Breath sounds: Examination of the right-lower field reveals decreased breath sounds. Examination of the left-lower field reveals decreased breath sounds. Decreased breath sounds and wheezing present. No rhonchi or rales. Comments: After nebulizer treatment wheezing and slight accessory muscle usage remained but coughing slightly relieved and bases less diminished. Sat 94% ra. Neurological: Mental Status: She is alert and oriented to person, place, and time. ASSESSMENT/PLAN: 1. COPD (chronic obstructive pulmonary disease) with acute bronchitis (HCC) - ICD9: 491.22, ICD10: J44.0, J20.9 (primary diagnosis) Ad augmentin Call pulm provider for appointment -discussed going to ER d/t poor response to nebulizer treatment. Patient wanted to try medication first and will go to ER if no soon improvement - AMOXICILLIN 875 MG-POTASSIUM CLAVULANATE 125 MG TABLET - BENZONATATE 100 MG CAPSULE - COVID NAAT, ROUTINE 2. Acute cough - ICD9: 786.2, ICD10: R05.1 - XR CHEST 2V FRONTAL/LAT 3. Wheeze - ICD9: 786.07, ICD10: R06.2 - XR CHEST 2V FRONTAL/LAT IMPRESSION: No definite acute radiographic abnormality. Dictated by : SHERON BRUNSON MD - ALBUTEROL SULFATE 2.5 MG/3 ML (0.083 %) SOLUTION FOR NEBULIZATION -patient reported relief Tatiana Anguiano APRN.DELIA documented in this encounter [facility] 04-01-2023 Nurse Note 2.5 solution aerosol treatment given per provider's orders. Prior to treatment O2 sat is 93%. Treatment completed. O2 sat is 95%. Tolerated well. Madeline Amor documented in this encounter [facility] 03-27-2023 History of Presen t illness Narrative Subjective HPI HPI Susan Chandler is a 77 year old female who presents today for CC of cough, congestion, wheeze, sob. This started 4 days ago. Has tried otc medication for relief. Symptoms are worsened by nothing. Risk factors hx of copd, current smoker, does not have any inhalers. .Patient presents with: Cough: Chest congestion, wheezing x4 days No past medical history on file. No past surgical history on file. ALLERGIES Penicillins, Percocet [Oxycodone-Acetaminophen], and Vicodin [Hydrocodone-Acetaminophen] MEDICATIONS predniSONE (DELTASONE) 10 mg tablet Take 4 tabs daily for 3 days, then 2 tabs daily for 3 days, then 1 tab daily for 3 days with food. albuterol HFA (PROAIR HFA) 90 mcg/actuation inhaler Inhale 2 Puffs as instructed every 4 hours as needed. doxycycline monohydrate 100 mg tablet Take 1 tablet by mouth twice daily for 7 days. albuterol HFA (PROVENTIL HFA, VENTOLIN HFA) 90 mcg/actuation inhaler INHALE 2 (TWO) PUFFS EVERY 4 HOURS NEEDED atenolol (TENORMIN) 50 mg tablet escitalopram oxalate (LEXAPRO) 10 mg tablet diclofenac (VOLTAREN) 1 % topical gel Apply 2 gm to affected area 3 times a day gabapentin (NEURONTIN) 300 mg capsule Take 300 mg by mouth three times daily. metFORMIN (GLUCOPHAGE) 500 mg tablet nabumetone (RELAFEN) 750 mg tablet Take 750 mg by mouth twice daily. TAKE WITH FOOD. aspirin, enteric coated (ASPIRIN, ENTERIC COATED) 81 mg EC tablet Take 81 mg by mouth once daily. traZODone (DESYREL) 50 mg tablet TAKE 2 TABLETS BY MOUTH EVERY DAY AT BEDTIME No family history on file. Social History Tobacco Use Smoking status: Every Day Smokeless tobacco: Never Substance Use Topics Alcohol use: Never Drug use: Never Review of Systems Constitutional: Negative for fever. HENT: Positive for congestion. Negative for ear pain, nosebleeds and sore throat. Respiratory: Positive for cough, shortness of breath and wheezing. Cardiovascular: Negative for chest pain. Musculoskeletal: Negative for neck pain. Skin: Negative for itching and rash. Objective Blood pressure 124/80, pulse 78, temperature 36.7 C (98 F), resp. rate 20, weight 76.7 kg (169 lb 3.2 oz), SpO2 91 %. Physical Exam Constitutional: General: She is not in acute distress. Appearance: She is not toxic-appearing or diaphoretic. HENT: Head: Normocephalic and atraumatic. Cardiovascular: Rate and Rhythm: Normal rate and regular rhythm. Heart sounds: Normal heart sounds, S1 normal and S2 normal. Pulmonary: Effort: Pulmonary effort is normal. Breath sounds: Examination of the right-lower field reveals decreased breath sounds. Examination of the left-lower field reveals decreased breath sounds. Decreased breath sounds, wheezing and rhonchi present. No rales. Comments: Adventitious sounds improved greatly after nebulizer treatment. Lymphadenopathy: Cervical: No cervical adenopathy. Right cervical: No superficial cervical adenopathy. Left cervical: No superficial cervical adenopathy. Neurological: Mental Status: She is alert and oriented to person, place, and time. Gait: Gait is intact. ASSESSMENT/PLAN: 1. COPD with exacerbation (HCC) - ICD9: 491.21, ICD10: J44.1 Improvement noted after nebulizer treatment - Discussed supportive care - Limit exposure to smoke and other inhaled irritants - Discussed possible red flags and when to seek medical attention - Follow up in 3-5 days or sooner if no better or worse -If you experience chest pain/shortness of breath go to ER - ALBUTEROL SULFATE 2.5 MG/3 ML (0.083 %) SOLUTION FOR NEBULIZATION - PREDNISONE 10 MG TABLET - ALBUTEROL SULFATE HFA 90 MCG/ACTUATION AEROSOL INHALER - DOXYCYCLINE MONOHYDRATE 100 MG TABLET Tatiana Anguiano APRN.TEMPLE MEAT CUTTER documented in this encounter [facility] 03-27-2023 Nurse Note 2.5 solution aerosol treatment given per provider's orders. Prior to treatment O2 sat is 91%. Treatment completed. O2 sat is 97%. Tolerated well. documented in this encounter [facility] 01-12-2023 Note Discharge Instructions Thank you for allowing [facility] to assist you with your healthcare needs. The following is important discharge information regarding your hospital visit. Your Care Team /[facility] Your Diagnosis Osteoarthritis S/P total hip arthroplasty Atrial fibrillation Type 2 diabetes mellitus HTN (hypertension) S/P total left hip arthroplasty What to do next Follow Up Appointments Follow Up with ZACHARY JOHNSON PA-C, Orthopedic When 01/26/2023 02:00 PM EDT Why: This is your post-op appointment. Follow-up as scheduled. Where: [facility] [address] [place] [address] [place] [address]- Follow Up with [facility] Physical Therapy When 01/17/2023 09:00 AM EDT Why: This is your first physical therapy appointment. Follow-up as scheduled. Where: [address] [place] [address] [place] [id number]- [phone] The Following Activity and Diet Have Been Ordered for You FOLLOW POST-OP INSTRUCTIONS Allergies Percocet 5/325 (Itching) Vicodin (ITCHING) penicillin (Itching) Medications Please ask your primary doctor or pharmacist before taking any other medication not listed, including over the counter drugs, herbal medications, vitamins and or supplements as they may interact with your home medications. What How Much When Why Instructions Last Dose New acetaminophen (Tylenol) 1,000 Milligram by mouth Three (3) times a day Duration: 14 Days not to exceed 3000 mg/ day 01/12/23 @958AM New docusate-senna (Senokot S 50 mg-8.6 mg oral tablet) 2 tab(s) by mouth Two (2) times a day Duration: 3 Days Take until first bowel movement, then as needed Pickup at [facility] 01/12/23 @848AM New traMADol (Ultram 50 mg oral tablet) See instructions S/P total left hip arthroplasty 1-2 tab(s) Oral q6h Pickup at [facility] 01/12/23 @1209PM Changed aspirin 81 Milligram by mouth Twice daily with meals Duration: 30 Days Take 81 mg aspirin twice daily with food for 4 weeks postoperatively for DVT prophylaxis. 01/12/23 @848AM Unchanged atenolol (atenolol 50 mg oral tablet) 1 tab(s) by mouth Two (2) times a day 01/11/23 @907PM Unchanged calcium-vitamin D (Calcium 600+D) 1 tab(s) by mouth Two (2) times a day Take with food NOT GIVEN Unchanged cholecalciferol (Vitamin D3) 100 Microgram by mouth Every day NOT GIVEN Unchanged escitalopram (escitalopram 10 mg oral tablet) 1 tab(s) by mouth Every day 01/12/23 @848AM Unchanged gabapentin (gabapentin 300 mg oral capsule) 1 cap by mouth Three (3) times a day 01/12/23 @848AM Unchanged meloxicam (meloxicam 7.5 mg oral tablet) 1 tab(s) by mouth Once a day NOT GIVEN Unchanged psyllium (psyllium 2.4 g/ 3.7 g oral powder for reconstitution) 2.4 gram(s) by mouth Two (2) times a day as needed for as needed for constipation dissolve in 8 oz of fluid NOT GIVEN Unchanged rosuvastatin (rosuvastatin 10 mg oral tablet) 1 tab(s) by mouth Once a day 01/11/23 @907PM Unchanged traZODone (traZODone 50 mg oral tablet) 1 tab(s) by mouth Daily at bedtime 01/11/23 @907PM Unchanged valsartan (valsartan 160 mg oral tablet) 1 tab(s) by mouth Every day 01/11/23 @513PM Pharmacy Information [facility]: [address] [place], [place] [id number] [phone] Please take this list to your next doctor s visit. Bring all medications you take, including over the counter medications, herbals and other supplements with you to your doctor s visit. Patients and families are reminded to discard old lists and to update any records with all medication providers or retail pharmacies. Education Materials [facility] Post-operative Instructions PLEASE FOLLOW [facility] POST-OP INSTRUCTIONS GIVEN WATCH FOR SIGNS OF INFECTION: call the office ([phone]) if experencing any of the following: (Usually appears 36-48 hours after surgery) Increased temperature (101 degrees Fahrenheit or higher) Redness or swelling Increased uncontrolled pain Foul odor or drainage Calf discomfort Significant swelling Or if having any chest pain, shortness of breath, or difficulty breathing or swallowing call the office or go the nearest Emergency Room. If you have any questions, please call your doctor at the number listed on your follow up instructions. Form: [id number] ([id number]) R: 12/19 Additional Information VACCINATE! IT SAVES LIVES! Members of the community who have not yet received the COVID-19 vaccine and would like to receive it can visit one of [facility] vaccine clinics. There are many vaccine clinic locations within the [facility]. For locations and available times, please visit [email or web address] [email or web address] It is important to note that some COVID mobile vaccine clinics are held outdoors and may be canceled in rainy or stormy conditions. To learn more about pediatric vaccinations (ages 5-11), we invite you to visit the [facility] webpage. [email or web address] To learn more about the COVID-19 vaccine, we invite you to visit the CDC website for a list of frequently asked questions.https://www.cdc.gov/co ronavirus/2019-ncov/vaccines/faq .html [facility] Patient Portal Access Instructions: Stay connected with your healthcare team and access your personal medical information anytime with the [facility] Patient Portal. Please follow the directions below to create your [facility] account: 1.Access the email account you provided upon registration to the hospital/physician office.2.Look for an invitation email from [facility].3.Open the email and access the invitation link: Accept Invitation to [facility].4.Fill in the required reyes to create your account. To access your account, visit [email or web address]. Click the blue button labeled Access Patient Portal and then log in with the username and password that you created in the steps above. You will be able to view your test results, lab results, a summary of your visits, upcoming appointments and more. There is also a convenient messaging option where you can send secure messages to your provider. In addition, you will have the ability to download any documents or summaries to your computer and/or send the information securely to a physician. Remember that your healthcare information is confidential, so carefully consider who you will allow to register on the [facility] [facility] Patient Portal for access to your information. You can also access the [facility] Patient Portal on the [employer] amna. Simply click on Patient Portal and then log into your account. If you would like to receive a full copy of your medical records, please contact the [facility] Medical Records Department by calling [phone], Tuesday through Tuesday between 8 a.m. and 4:30 p.m. HOW TO SAFELY DISPOSE OF PRESCRIPTION MEDICATIONS Please use one of the following methods to safely dispose of your unused medications. 1.Use a drug disposal kit: the drug disposal pouch allows you to safely discard your old and unused drugs. Ask your nurse to give you one when you are discharged.2.Visit a local take-back location: Many local pharmacies and police departments have programs that collect old and unwanted prescription drugs. Call your local pharmacy or go to http://DepoMed.Tellme/2B4Ww9h to find one close to you.3.Make use of household items: Use cat litter or old coffee grounds to dispose medications if other options are not available. Mix your drugs with these household products, seal them in an airtight container and throw it into the garbage. Call [facility]: [phone] to be sure your drugs can be disposed of in this way. Some medicines may require a different approach.4.Never flush your medications down the toilet. IF YOU HAVE BEEN PRESCRIBED AN OPIOID FOR PAIN If you have been prescribed an opioid (such as hydrocodone, oxycodone or morphine), it is critical to understand the possible side effects and risks of opioid pain medications. Even when taken as directed, opioids can have several side effects including: Tolerance, meaning you might need to take more of a medication for the same pain relief. Nausea, vomiting and/or constipation. Sleepiness, dizziness, dry mouth, confusion, depression or itching. Physical dependence, meaning you have withdrawal symptoms when a medication is stopped, can develop within a few days. KNOW YOUR RESPONSIBILITIES It is important to know exactly how much and how often to take the opioid pain medications you are prescribed. Never take opioids in higher amounts or more often than prescribed. Do not combine opioids with alcohol or other drugs that cause drowsiness, such as benzodiazepines, also known as benzos, including diazepam and alprazolam, muscle relaxants or sleep aids. Never sell or share prescription opioids. This is illegal. Store opioids in a secure place and out of reach of others (including children, family, friends and visitors). The last page of this document has been signed and retained as a CHART COPY. Signatures Patient Education Materials Ghada - Kavin Ortez Post-op Instruction 03/2017 (67020) Medication Leaflets My discharge plan and instructions have been reviewed and explained to me and I,SUSAN CHANDLER understand my current condition and have read and understand these discharge instructions. I have received a written copy of the plan/instructions. If I have questions, I am aware that I should contact my doctor. Patient/Roughener Signature: Date/Time: Relationship to Patient: Witness Name/Signature: Date/Time: [facility] 01-12-2023 Hospital Discharg e instructions Patient Education 01/12/2023 07:07:13 5 - [facility] Post-op Instruction 03/2017 (52777) [facility] Post-operative Instructions PLEASE FOLLOW [facility] POST-OP INSTRUCTIONS GIVEN WATCH FOR SIGNS OF INFECTION: call the office ([phone]) if experencing any of the following: (Usually appears 36-48 hours after surgery) Increased temperature (101 degrees Fahrenheit or higher) Redness or swelling Increased uncontrolled pain Foul odor or drainage Calf discomfort Significant swelling Or if having any chest pain, shortness of breath, or difficulty breathing or swallowing call the office or go the nearest Emergency Room. If you have any questions, please call your doctor at the number listed on your follow up instructions. Form: 338A (69112) R: 12/19 Follow Up Care 11/17/2022 12:28:02 With:[facility] Address: [address] [place] [id number] [phone] When:01/17/2023 09:00:00 Comments:This is your first physical therapy appointment. Follow-up as scheduled. With:ZACHARY JOHNSON PA-C, Orthopedic Address: [facility] [address] [place] [id number] When:01/26/2023 14:00:00 Comments:This is your post-op appointment. [facility] scheduled[facility] Note Date of Service January 12, 2023 Subjective The patient was sitting in bed upon examination. Patient denies any chest pain, shortness of breath, dizziness, lightheadedness, nausea or vomiting, or calf pain. No adverse overnight events. Pain has been controlled on medications. Patient overall is doing well this morning. She does complain of left thigh soreness. Pain has been controlled. She has been up moving. Objective Vitals and Measurements T: 36.6 C (Oral) TMIN: 36 C (Temporal Artery) TMAX: 36.6 C (Oral) HR: 51(Apical) RR: 16 BP: 118/54 SpO2: 90% HT: 152.4 cm WT: 77.5 kg BMI: 33.37 Intake and Output 7AM Yesterday to 7AM Today Intake and Output (Last 24 hours) Intake Oral Intake 840.00 Administration Information 1410.17 Supplement Intake 0.00 Output Intra-Op EBL 200.00 Stool Count 0.00 Urine Count 5.00 Total Summary Total Intake 2250.17 Total Output 200.00 Fluid Balance 2050.17 Physical Exam Vital signs stable, afebrile. Patient was on her CPAP overnight. She currently is on nasal O2. Denies any shortness of breath or chest pain. Left thigh is soft and supple SCDs and SARAH hose are in place bilaterally Patient is able to plantarflex and dorsiflex actively Sensation is intact to saphenous, sural, superficial and deep peroneal, and tibial distribution Dressing is clean dry and intact Negative signs and symptoms of DVT, negative Homans bilaterally Weight Dosing Weight: 77.5 kg (01/11/23) Dosing Weight: 77.5 kg (01/11/23) Medications Medications (28) Active Scheduled: (17) acetaminophen 500 mg Tablet 1,000 mg 2 tab(s), Oral, q6hr aspirin 81 mg EC 81 mg 1 tab(s), Oral, BIDM atenolol 50 mg tablet 50 mg 1 tab(s), Oral, BID atorvastatin 10 mg tablet 20 mg 2 tab(s), Oral, qHS bisacodyl 5 mg EC tablet 10 mg 2 tab(s), Oral, Once docusate sodium 100 mg Capsule 100 mg 1 cap(s), Oral, BID docusate-senna (Senokot S) 50 mg-8.6 mg Tablet 2 tab(s), Oral, BID escitalopram 10 mg tablet 10 mg 1 tab(s), Oral, Daily famotidine 20 mg tablet 20 mg 1 tab(s), Oral, qDay gabapentin 300 mg Capsule 300 mg 1 cap(s), Oral, TID magnesium hydroxide 8% Suspension 30 mL UD 30 mL, Oral, Daily meloxicam 7.5 mg tablet 7.5 mg 1 tab(s), Oral, BIDM multivitamin (Myadec) with minerals Therapeutic Multiple Vitamins with Minerals Tablet 1 tab(s), Oral, qDayM ondansetron 2 mg/ 1 mL 2 mL INJ 4 mg 2 mL, IV Push, q8h tramadol 50 mg Tablet 50 mg 1 tab(s), Oral, q6hr traZODONE 50 mg Tablet 50 mg 1 tab(s), Oral, qHS valsartan 320 mg tablet 160 mg 0.5 tab(s), Oral, qDay Continuous: (1) Lactated Ringers 1,000 mL 1,000 mL, Intravenous, 100 mL/hr PRN: (10) acetaminophen 325 mg Tablet 650 mg 2 tab(s), Oral, q4h diphenhydramine 25 mg tablet 25 mg 1 tab(s), Oral, q6h diphenhyDRAMINE 50 mg/mL (1 mL) INJ 25 mg 0.5 mL, IV Push, q6h ketorolac 30 mg/mL (1 mL) vial 15 mg 0.5 mL, IV Push, q6h morphine 2 mg/mL 1 mL syringe 2 mg 1 mL, IV Push, q1h ondansetron 2 mg/ 1 mL 2 mL INJ 4 mg 2 mL, IV Push, q8h prochlorperazine 10 mg/2 mL vial 5 mg 1 mL, IV Push, q6h psyllium REC Packet 0.5 packet(s), Oral, BID sodium biphosphate-sodium phosphate 19 gm-7 gm Enema 133 mL, Rectal, qDay tramadol 50 mg Tablet 50 mg 1 tab(s), Oral, q6h Lab Results 01/12 05:16 WBC: 16.6 H Hgb: 13.2 Hct: 39.6 Platelet: 141 Neutrophil %: 86.1 H Glucose Level: 181 H Sodium Level: 141 Potassium Level: 4.6 BUN: 20 H Creatinine Lvl (s): 0.81 EKG No qualifying data available. Assessment/Plan 1. Osteoarthritis 2. S/P total hip arthroplasty 1. Status post left direct anterior total hip arthroplasty postop day #1 2. Continue pain medications: Tylenol, meloxicam and tramadol as needed. Do not take any other nonsteroidal anti-inflammatories while on meloxicam/Mobic 3. DVT prophylaxis: Take 81 mg aspirin twice daily with food for 4 weeks postoperatively for DVT prophylaxis. Patient denies past history of DVT or pulmonary embolism 4. Physical therapy: Weightbearing as tolerated with walker 5. H & H: 13.2/39.6, asymptomatic. Postoperative anemia secondary to acute blood loss from surgery without intraoperative complications. 6. Reactive leukocytosis: Currently 16.6, afebrile. Patient did receive Decadron intraoperatively 7. Encouraged incentive spirometry 8. Continue postoperative medical management per medicine 9. Disposition: Plan will be for probable discharge home today as long as patient pain is well controlled, tolerates therapy, and medically stable. She would like her medications E scribed to [facility] in [facility]. She has outpatient physical therapy established. She will follow-up per postoperative instructions. Upon discharge she will contact her office with any concerns or questions. I have reviewed the [place] Automated Rx Reporting System (OARRS) report for this patient for refill pattern and other prescriber involvement as part of the appropriate surveillance for the provision of acute and chronic controlled medications. The report was requested and reviewed on the date of this entry, and was considered in the prescribing process This dictation was created using voice recognition software. Phonetic and/or grammatical errors may exist. 3. Atrial fibrillation 4. Type 2 diabetes mellitus 5. HTN (hypertension) Digitally Signed by ZACHARY JOHNSON PA-C on 01/12/2023 07:07 AM [facility] 01-11-2023 Note ORIGINAL Images acquired, not reported on this accession number. [facility] 01-11-2023 Note ORIGINAL Images acquired, not reported on this accession number. [facility] 01-11-2023 Note ORIGINAL EXAMINATION: POSTOPERATIVE HIP TECHNIQUE: Three views of the left hip COMPARISON: None. HISTORY: ORDERING SYSTEM PROVIDED HISTORY: Reason for Exam: Status Post Arthroplasty FINDINGS: The patient is status post left hip replacement. There is appropriate position of the prosthesis. There are postsurgical changes in the soft tissues. A remote right hip replacement is seen. Posterior fusion L3-S1. Thoracic spinal stimulator with generator overlying the left iliac bone. IMPRESSION: Postsurgical changes of the left hip status post hip replacement. Interpreted by: Zaki Merritt MD Preliminary Report By: Zaki Merritt MD Electronically signed By Zaki Merritt MD Dictated Date: 01/11/2023 10:55:22 AM Prelim Date: 01/11/2023 10:57:21 AM Sign Date: 01/11/2023 10:57:21 AM Ordering Provider: [facility] 01-11-2023 Note ORIGINAL EXAMINATION: POSTOPERATIVE HIP TECHNIQUE: Three views of the left hip COMPARISON: None. HISTORY: ORDERING SYSTEM PROVIDED HISTORY: Reason for Exam: Status Post Arthroplasty FINDINGS: The patient is status post left hip replacement. There is appropriate position of the prosthesis. There are postsurgical changes in the soft tissues. A remote right hip replacement is seen. Posterior fusion L3-S1. Thoracic spinal stimulator with generator overlying the left iliac bone. IMPRESSION: Postsurgical changes of the left hip status post hip replacement. Interpreted by: Zaki Merritt MD Preliminary Report By: Zaki Merritt MD Electronically signed By Zaki Merritt MD Dictated Date: 01/11/2023 10:55:22 AM Prelim Date: 01/11/2023 10:57:21 AM Sign Date: 01/11/2023 10:57:21 AM Ordering Provider: [facility] 01-11-2023 Anesthesiology Consult note Patient: SUSAN CHANDLER Age: 77 years Sex: Female : 1945 Associated Diagnoses: None Author: KRISTEN CATHERINE SENIOR CLIENT ADVISOR-SURVEILLANCE DIRECTOR Preoperative Information Time of last food or liquid consumption: 01/11/2023 00:00:00 Anesthesia history Patient's history: negative. Family's history: negative. Review of Systems Ear/Nose/Mouth/Throat: Negative. Respiratory: smoker. Cardiovascular: Negative. Gastrointestinal: obese. Genitourinary: Negative. Endocrine: Negative. Musculoskeletal: OA. Back pain: nerve stimulator. Integumentary: Negative. Neurologic: depression. Health Status Allergies: Allergic Reactions (Selected) Severity Not Documented Penicillin- Itching. Percocet 5/325- Itching. Nonallergic Reactions (Selected) Severity Not Documented Vicodin- Itching., Allergies (3) ActiveReaction penicillinItching Percocet 5/325Itching VicodinITCHING Current medications: (Selected) Inpatient Medications Ordered Betadine 10% topical solution: 17.5 mL, mL/hr, Topical (INT), PREOP pharm Decadron: 10 mg, 1 mL, IV Push, AsDirected Kefzol: 2 gram(s), 200 mL/hr, IV Piggyback, PREOP pharm LR 1,000 mL: 20 mL/hr, Intravenous, Stop: 01/11/23 23:59:00 EDT Naropin 100 mg + Toradol 15 mg + EPINEPHrine 1 mg/mL injectable solution 0.3 mg + morphine 2.5 mg...: 100 mg, 20 mL, mL/hr, Other, PREOP pharm Naropin 100 mg + Toradol 15 mg + EPINEPHrine 1 mg/mL injectable solution 0.3 mg + morphine 2.5 mg...: 100 mg, 20 mL, mL/hr, Other, PREOP pharm Pepcid IV: 20 mg, 2 mL, IV Push, PREOP pharm tranexamic acid 1 g / 100 mL 0.7% NaCl PMX: 1 gram(s), 100 mL, 300 mL/hr, IV Piggyback, AsDirected tranexamic acid 1 g / 100 mL 0.7% NaCl PMX: 1 gram(s), 100 mL, 300 mL/hr, IV Piggyback, AsDirected Documented Medications Documented Calcium 600+D: 1 tab(s), PO, BID, Take with food, 0 Refill(s) Vitamin D3: 100 mcg, 1 tab(s), Oral, Daily, 0 Refill(s) aspirin 81 mg oral delayed release tablet: 81 mg, 1 tab(s), Oral, Daily, 0 Refill(s) atenolol 50 mg oral tablet: 50 mg, 1 tab(s), Oral, BID, 180 tab(s), 0 Refill(s) escitalopram 10 mg oral tablet: 10 mg, 1 tab(s), Oral, Daily, 0 Refill(s) gabapentin 300 mg oral capsule: 300 mg, 1 cap(s), Oral, TID, 270 cap(s), 0 Refill(s) meloxicam 7.5 mg oral tablet: 7.5 mg, 1 tab(s), Oral, qDay, 30 tab(s), 0 Refill(s) psyllium 2.4 g/3.7 g oral powder for reconstitution: 2.4 gram(s), Oral, BID, dissolve in 8 oz of fluid, PRN: as needed for constipation, 30 packet(s), 0 Refill(s) rosuvastatin 10 mg oral tablet: 10 mg, 1 tab(s), Oral, qDay, 0 Refill(s) traZODone 50 mg oral tablet: 50 mg, 1 tab(s), Oral, qHS, 30 tab(s), 0 Refill(s) valsartan 160 mg oral tablet: 160 mg, 1 tab(s), Oral, Daily, 0 Refill(s), Medications (9) Active Scheduled: (8) ceFAZolin 2 gram(s), IV Piggyback, PREOP pharm dexamethasone 10 mg/mL (1mL) SDV 10 mg 1 mL, IV Push, AsDirected famotidine 20 mg/2 mL vial 20 mg 2 mL, IV Push, PREOP pharm povidone iodine topical 17.5 mL, Topical (INT), PREOP pharm ropivacaine 100 mg + ketorolac 15 mg + epinephrine 0.3 mg + morphine 2.5 mg 100 mg 20 mL, Other, PREOP pharm ropivacaine 100 mg + ketorolac 15 mg + epinephrine 0.3 mg + morphine 2.5 mg 100 mg 20 mL, Other, PREOP pharm tranexamic acid PMX 1 gram(s) 100 mL, IV Piggyback, AsDirected tranexamic acid PMX 1 gram(s) 100 mL, IV Piggyback, AsDirected Continuous: (1) Lactated Ringers 1,000 mL 1,000 mL, Intravenous, 20 mL/hr PRN: (0) Problem list: Medical Arthritis / SNOMED CT 5661678 / Confirmed At risk for falls / SNOMED CT 737560734 / Confirmed Cigarette smoker / SNOMED CT 641367051 / Confirmed Poison rafael / SNOMED CT 3905123661 / Confirmed Depression / SNOMED CT 240276406 / Confirmed Glasses / SNOMED CT 9208635748 / Confirmed Hearing aid / SNOMED CT 86104796 / Confirmed Hearing loss / SNOMED CT 45869075 / Confirmed Hx of colonic polyps / SNOMED CT 8135223411 / Confirmed Narcolepsy / SNOMED CT 981387826 / Confirmed Neuropathy / SNOMED CT 2088441529 / Confirmed Obesity / SNOMED CT 4001261036 / Confirmed Osteoporosis / SNOMED CT 706391212 / Confirmed Palpitations / SNOMED CT 006301398 / Confirmed Peroneal tenosynovitis / SNOMED CT 46678327 / Confirmed Spinal stenosis / SNOMED CT 213953537 / Confirmed Unsteady gait / SNOMED CT 274672954 / Confirmed, Active Problems (17) Arthritis At risk for falls Cigarette smoker Depression Glasses Hearing aid Hearing loss Hx of colonic polyps Narcolepsy Neuropathy Obesity Osteoporosis Palpitations Peroneal tenosynovitis Poison rafael Spinal stenosis Unsteady gait Histories Past Medical History: Active Palpitations (741362062) Narcolepsy (921126449) Neuropathy (9311345385) Comments: 09/19/2013 EST 15:09 Ashley Pacheco RN TOES Arthritis (1253653) Osteoporosis (327936144) Glasses (6210991496) Hearing loss (00102980) Comments: 09/19/2013 EST 15:10 Ashley Pacheco RN MILD Obesity (9933788825) Hearing aid (16196396) Cigarette smoker (643127197) Peroneal tenosynovitis (12586463) Comments: 05/19/2016 EDT 15:24 MILTON Quezada left ankle Spinal stenosis (490307097) Poison rafael (7365956610) Comments: 05/19/2016 EDT 15:25 MILTON Quezada two small areas on right iner arm, to call dr anguiano for advice Depression (718090090) Hx of colonic polyps (2616306370) Unsteady gait (393446114) At risk for falls (158184739) Resolved Cataract (263613345): Resolved. Family History: Cancer Brother Cancer Brother Old age Mother Father Procedure history: Arthroplasty of knee (78075222) on 01/18/2012 at 66 Years. Comments: 05/19/2016 15:27 MILTON Quezada right Spinal instrumentation (000326111) in 2010 at 66 Years. Laminectomy (4955156526) on 03/29/2011 at 65 Years. Comments: 09/19/2013 15:13 MILTON Pacheco X2 Arthroplasty of the hip (997937786) in 2009 at 65 Years. Comments: 09/19/2013 15:11 MILTON Pacheco RIGHT Ovary operation (538277814) in 1967 at 23 Years. foot (2940097538). Comments: 05/19/2016 15:30 MILTON Quezada neuromas and bunionectomy 09/19/2013 15:12 MILTON Pacheco BILATERAL Cholecystectomy (84939242). Carpal tunnel release (143664859). Comments: 09/19/2013 15:14 MILTON Pacheco RIGHT AND LEFT Arthroscopy of knee (103271114). Comments: 05/19/2016 15:28 MILTON Queazda right x3 Colonoscopy (164428235). Esophagogastroduodenoscopy (919256925). Ankle (395630179). Comments: 05/19/2016 15:30 MILTON Quezada left Dilation and curettage (90837525). Social History Social & Psychosocial Habits Alcohol 12/20/2022 Use: Never Substance Abuse 12/20/2022 Use: Never Tobacco 12/20/2022 Tobacco Use: 10 or more cigarettes (1/ Home/Environment 12/20/2022 Domestic Concerns None Lives In Single level home Spouse Name ELIDA Marital Status of Patient if Patient Independent Adult: Nutrition/Health 12/20/2022 Type of diet: Diabetic Eating Difficulties None . Physical Examination Vital Signs 01/11/2023 7:16 EDT Temperature Temporal Artery 36.0 DegC Apical Heart Rate 54 bpm LOW Respiratory Rate 19 br/min Systolic Blood Pressure Non-Invasive 127 mmHg Diastolic Blood Pressure Non-Invasive 50 mmHg Vital Signs(last 24 hrs) Last Charted Resp Rate 19 br/min (JANUARY 11 07:16) YYZ313 mmHg (JANUARY 11 07:16) DBPC 50mmHg (JANUARY 11 07:16) Measurements from flowsheet : Measurements 01/11/2023 7:16 EDT Height 152.4 cm Admission Weight 77.5 kg Weight Method Stated Condon Body Weight 45.50 kg Pain assessment: Pain Assessment 01/11/2023 7:16 EDT Primary Pain Location Hip Primary Pain Laterality Left Primary Pain Intensity 5 Pain Scale Type 0-10 Pain scale . General: Alert and oriented. Airway: Normal temporomandibular joint mobility. Mallampati classification: II (soft palate, fauces, uvula visible). Head: Normocephalic. Dentition Evaluation: Own teeth. Neck: Supple. Respiratory: Lungs are clear to auscultation. Cardiovascular: Normal rate. Heart Sounds: Normal. Gastrointestinal: Soft. Musculoskeletal Normal range of motion. Integumentary: Intact. Neurologic: Alert, Oriented. Review / Management Results review: No qualifying data available , Lab results 01/11/2023 7:39 EDT citric acid-sodium citrate Not Done: Other (Not Done) 01/11/2023 7:38 EDT SN - Preop - CTm Pt in SDS Room 01/11/2023 6:45 SN - Preop - CTm Pt Ready for OR/Proced 01/11/2023 7:40 01/11/2023 7:37 EDT celecoxib 400 mg mg 01/11/2023 7:34 EDT SN - CAt - Case Attendee SN - CAt - Case Attendee 01/11/2023 7:30 EDT SN - CAt - Case Attendee SN - CAt - Case Attendee SN - CAt - Case Attendee SN - CAt - Case Attendee SN - CAt - Case Attendee SN - CAt - Case Attendee SN - CAt - Case Attendee SN - CAt - Case Attendee SN - CAt - Role Performed Primary Surgeon SN - CAt - Role Performed Mud Mill Tender 1 SN - CAt - Role Performed SURVEILLANCE DIRECTOR SN - CAt - Role Performed Scrub 1 SN - CAt - Role Performed Nut Culler 1 01/11/2023 7:28 EDT Lactated Ringers Injection 1,000 mL mL 01/11/2023 7:25 EDT Hand Right 01/11/2023 20 gauge Peripheral IV Activity: Insert new site Peripheral IV Dressing Condition: Clean, Dry, Intact Peripheral IV Dressing Activity: Applied, Transparent dressing Peripheral IV Line Status/Patency: Flushes easily Peripheral IV Line Care: Secured with tape Peripheral IV Site Condition: No complications Peripheral IV Equipment: Extension set, PRN Adaptor Peripheral IV Number of Attempts: 1 01/11/2023 7:16 EDT Blood Glucose, Capillary 123 mg/dL RI Designated Person #1 We May Share AMANDA oLzano [phone] Designated Person #1 Relationship Spouse Privacy Restrictions Requested None Height 152.4 cm Admission Weight 77.5 kg Weight Method Stated Condon Body Weight 45.50 kg Temperature Temporal Artery 36.0 DegC Apical Heart Rate 54 bpm LOW Respiratory Rate 19 br/min Systolic Blood Pressure Non-Invasive 127 mmHg Diastolic Blood Pressure Non-Invasive 50 mmHg Primary Pain Location Hip Primary Pain Laterality Left Primary Pain Intensity 5 Pain Scale Type 0-10 Pain scale Heart Rhythm Regular Oxygen Therapy Room air Oxygen Saturation 94 % Abdomen Description Non-distended, Soft Bowel Sounds All Quadrants Present Urinary Elimination Voiding, no difficulties Status N/A Skin Integrity Intact IV Present Present Neurological Symptoms Patient denies Characteristics of Speech Clear Level of Consciousness Alert Affect/Behavior Appropriate, Calm, Cooperative Orientation Oriented x 4 Sensory Deficits Hearing deficit, left ear, Hearing deficit, right ear Sleep Apnea Snore Yes Sleep Apnea Tired Yes Sleep Apnea Obstruction Yes Sleep Apnea Pressure Yes Sleep Apnea BMI Yes Sleep Apnea Age Yes Sleep Apnea Neck Yes Sleep Apnea Gender No Sleep Apnea Score 7 >HHI High Risk for Sleep Apnea Yes Diagnosed With Sleep Apnea Yes Advanced Directives Yes Advance Directive Location Patient instructed to bring in copy Infectious Disease Symptoms Patient states no symptoms Infectious Disease Recent Exposure No Alcohol and Drug Use No Employee of Institutional Living No Health Care Employee No History of Exposure to TB No History of Positive Chest X-Ray for TB No History of Positive TB Skin Test No Homeless No Known Immunosuppression No Recent Immigrant No Resident of Institutional Living No Bloody Sputum No Fatigue No Fever No Loss of Appetite No Night Sweats No Persistent Cough > 3 Weeks No Weight Loss No Allergies Yes Gas Welder On Yes Consent Form Signed Yes Patient Dressed In Hospital gown Pre-op Preparation Glasses removed, Hearing aid, left removed, Hearing aid, right removed CHG Preoperative Wash/Wipe Night before procedure, Day of procedure, Site specific wipe Non-CHG Preoperative Shampoo Completed Preop Nasal Swab Povidone-Iodine History & Physical Update On Chart Yes History & Physical On Chart Yes Obstructive Sleep Apnea Assess Completed Yes Orientation Assessment Oriented x 4 Safety Brochure Information Reviewed Yes [facility] Video Viewed No Barriers to Learning None evident Teaching Method Explanation Teaching Evaluation No further teaching needed Preferred Written Language Nigerien Preferred Spoken Language Nigerien Information Given by Patient Patient's Current Physicians Patient's Current Physicians Discharge To, Anticipated Home with family care Activity Status ADL Awake, Repositions self NPO Status Maintained, More than 8 hours Standard Safety ID band on, Allergy Band on, Call device within reach, Bed in low position, Wheels locked, Safety level maintained Prev Test Positive/Diagnosis w/COVID-19 No Current Quarantine/Isolated any Illness No Any Contact with Sick Animals/Birds No Traveled Anywhere in Last 30 Days No Allergy Band on and Verified Yes Patient ID Band on and Verified Yes Implants Verified Yes Pacemaker/AICD Verified No Anesthesia Consent Signed Yes Blood Consent Signed Yes Last Fluid Intake 01/11/2023 21:00 Last Food Intake 01/10/2023 21:00 Last Void 01/11/2023 6:00 Patient Cleared for Surgery By TERRANCE ALONSO MD Lost Weight Unintentionally Recently No Eat Poorly Due to Decreased Appetite No Total MST Score 0 N/A Personal Devices, Patient Valuables Glasses, Hearing aid, left, Hearing aid, right Anesthesia/Transfusions Prior anesthesia Admission Note-Nursing Same Day Patient History . Assessment and Plan [place] [employer]hesiologists (ASA) physical status classification: Class III. Anesthetic Preoperative Plan Premedication: intravenous. Anesthetic technique: General. Induction: intravenously. Maintenance airway: Oral endotracheal tube. Postoperative pain management: Per surgeon. Risks discussed: nausea, vomiting, sore throat. Informed consent: signed by patient. Digitally Signed by KRISTEN CATHERINE on 01/11/2023 07:43 AM [facility] 01-11-2023 Anesthesiology Consult note KRISTEN CATHERINE: PERFORM, SIGN, VERIFY Event Display: Anesthesiology Consultation Authored Date: [id number] Patient: SUSAN CHANDLER Age: 77 years Sex: Female : 1945 Associated Diagnoses: None Author: KRISTEN CATHERINE SENIOR CLIENT ADVISOR-SURVEILLANCE DIRECTOR Preoperative Information Time of last food or liquid consumption: 01/11/2023 00:00:00 Anesthesia history Patient's history: negative. Family's history: negative. Review of Systems Ear/Nose/Mouth/Throat: Negative. Respiratory: smoker. Cardiovascular: Negative. Gastrointestinal: obese. Genitourinary: Negative. Endocrine: Negative. Musculoskeletal: OA. Back pain: nerve stimulator. Integumentary: Negative. Neurologic: depression. Health Status Allergies: Allergic Reactions (Selected) Severity Not Documented Penicillin- Itching. Percocet 5/325- Itching. Nonallergic Reactions (Selected) Severity Not Documented Vicodin- Itching., Allergies (3) ActiveReaction penicillinItching Percocet 5/325Itching VicodinITCHING Current medications: (Selected) Inpatient Medications Ordered Betadine 10% topical solution: 17.5 mL, mL/hr, Topical (INT), PREOP pharm Decadron: 10 mg, 1 mL, IV Push, AsDirected Kefzol: 2 gram(s), 200 mL/hr, IV Piggyback, PREOP pharm LR 1,000 mL: 20 mL/hr, Intravenous, Stop: 01/11/23 23:59:00 EDT Naropin 100 mg + Toradol 15 mg + EPINEPHrine 1 mg/mL injectable solution 0.3 mg + morphine 2.5 mg...: 100 mg, 20 mL, mL/hr, Other, PREOP pharm Naropin 100 mg + Toradol 15 mg + EPINEPHrine 1 mg/mL injectable solution 0.3 mg + morphine 2.5 mg...: 100 mg, 20 mL, mL/hr, Other, PREOP pharm Pepcid IV: 20 mg, 2 mL, IV Push, PREOP pharm tranexamic acid 1 g / 100 mL 0.7% NaCl PMX: 1 gram(s), 100 mL, 300 mL/hr, IV Piggyback, AsDirected tranexamic acid 1 g / 100 mL 0.7% NaCl PMX: 1 gram(s), 100 mL, 300 mL/hr, IV Piggyback, AsDirected Documented Medications Documented Calcium 600+D: 1 tab(s), PO, BID, Take with food, 0 Refill(s) Vitamin D3: 100 mcg, 1 tab(s), Oral, Daily, 0 Refill(s) aspirin 81 mg oral delayed release tablet: 81 mg, 1 tab(s), Oral, Daily, 0 Refill(s) atenolol 50 mg oral tablet: 50 mg, 1 tab(s), Oral, BID, 180 tab(s), 0 Refill(s) escitalopram 10 mg oral tablet: 10 mg, 1 tab(s), Oral, Daily, 0 Refill(s) gabapentin 300 mg oral capsule: 300 mg, 1 cap(s), Oral, TID, 270 cap(s), 0 Refill(s) meloxicam 7.5 mg oral tablet: 7.5 mg, 1 tab(s), Oral, qDay, 30 tab(s), 0 Refill(s) psyllium 2.4 g/3.7 g oral powder for reconstitution: 2.4 gram(s), Oral, BID, dissolve in 8 oz of fluid, PRN: as needed for constipation, 30 packet(s), 0 Refill(s) rosuvastatin 10 mg oral tablet: 10 mg, 1 tab(s), Oral, qDay, 0 Refill(s) traZODone 50 mg oral tablet: 50 mg, 1 tab(s), Oral, qHS, 30 tab(s), 0 Refill(s) valsartan 160 mg oral tablet: 160 mg, 1 tab(s), Oral, Daily, 0 Refill(s), Medications (9) Active Scheduled: (8) ceFAZolin 2 gram(s), IV Piggyback, PREOP pharm dexamethasone 10 mg/mL (1mL) SDV 10 mg 1 mL, IV Push, AsDirected famotidine 20 mg/2 mL vial 20 mg 2 mL, IV Push, PREOP pharm povidone iodine topical 17.5 mL, Topical (INT), PREOP pharm ropivacaine 100 mg + ketorolac 15 mg + epinephrine 0.3 mg + morphine 2.5 mg 100 mg 20 mL, Other, PREOP pharm ropivacaine 100 mg + ketorolac 15 mg + epinephrine 0.3 mg + morphine 2.5 mg 100 mg 20 mL, Other, PREOP pharm tranexamic acid PMX 1 gram(s) 100 mL, IV Piggyback, AsDirected tranexamic acid PMX 1 gram(s) 100 mL, IV Piggyback, AsDirected Continuous: (1) Lactated Ringers 1,000 mL 1,000 mL, Intravenous, 20 mL/hr PRN: (0) Problem list: Medical Arthritis / SNOMED CT 9107554 / Confirmed At risk for falls / SNOMED CT 900792074 / Confirmed Cigarette smoker / SNOMED CT 466075614 / Confirmed Poison rafael / SNOMED CT 3978192177 / Confirmed Depression / SNOMED CT 376775335 / Confirmed Glasses / SNOMED CT 2354014241 / Confirmed Hearing aid / SNOMED CT 64417898 / Confirmed Hearing loss / SNOMED CT 11099464 / Confirmed Hx of colonic polyps / SNOMED CT 6848332560 / Confirmed Narcolepsy / SNOMED CT 920599302 / Confirmed Neuropathy / SNOMED CT 2264507224 / Confirmed Obesity / SNOMED CT 0244183289 / Confirmed Osteoporosis / SNOMED CT 329698523 / Confirmed Palpitations / SNOMED CT 695738527 / Confirmed Peroneal tenosynovitis / SNOMED CT 54226397 / Confirmed Spinal stenosis / SNOMED CT 407172327 / Confirmed Unsteady gait / SNOMED CT 915559903 / Confirmed, Active Problems (17) Arthritis At risk for falls Cigarette smoker Depression Glasses Hearing aid Hearing loss Hx of colonic polyps Narcolepsy Neuropathy Obesity Osteoporosis Palpitations Peroneal tenosynovitis Poison rafael Spinal stenosis Unsteady gait Histories Past Medical History: Active Palpitations (238517761) Narcolepsy (700051172) Neuropathy (2106301096) Comments: 09/19/2013 EST 15:09 Ashley Pacheco RN TOES Arthritis (4571884) Osteoporosis (991177112) Glasses (7335999069) Hearing loss (09168920) Comments: 09/19/2013 EST 15:10 Ashley Pacheco RN MILD Obesity (0494849100) Hearing aid (99879776) Cigarette smoker (472276677) Peroneal tenosynovitis (53395265) Comments: 05/19/2016 EDT 15:24 MILTON Quezada M left ankle Spinal stenosis (491185934) Poison rafael (6209845623) Comments: 05/19/2016 EDT 15:25 MILTON Quezada two small areas on right iner arm, to call dr anguiano for advice Depression (284785361) Hx of colonic polyps (6741532165) Unsteady gait (633794333) At risk for falls (971285118) Resolved Cataract (503689820): Resolved. Family History: Cancer Brother Cancer Brother Old age Mother Father Procedure history: Arthroplasty of knee (13350558) on 01/18/2012 at 66 Years. Comments: 05/19/2016 15:27 MILTON Quezada right Spinal instrumentation (977160016) in 2010 at 66 Years. Laminectomy (5105791109) on 03/29/2011 at 65 Years. Comments: 09/19/2013 15:13 MILTON Pacheco X2 Arthroplasty of the hip (751193948) in 2009 at 65 Years. Comments: 09/19/2013 15:11 MILTON Pacheco RIGHT Ovary operation (985783864) in 1967 at 23 Years. foot (9460648944). Comments: 05/19/2016 15:30 MILTON Quezada neuromas and bunionectomy 09/19/2013 15:12 MILTON Pacheco BILATERAL Cholecystectomy (90803416). Carpal tunnel release (683169719). Comments: 09/19/2013 15:14 MILTON Pacheco RIGHT AND LEFT Arthroscopy of knee (892396392). Comments: 05/19/2016 15:28 MILTON Quezada right x3 Colonoscopy (989750769). Esophagogastroduodenoscopy (603685930). Ankle (186685261). Comments: 05/19/2016 15:30 MILTON Quezada left Dilation and curettage (53510281). Social History Social & Psychosocial Habits Alcohol 12/20/2022 Use: Never Substance Abuse 12/20/2022 Use: Never Tobacco 12/20/2022 Tobacco Use: 10 or more cigarettes (1/ Home/Environment 12/20/2022 Domestic Concerns None Lives In Single level home Spouse Name ELIDA Marital Status of Patient if Patient Independent Adult: Nutrition/Health 12/20/2022 Type of diet: Diabetic Eating Difficulties None . Physical Examination Vital Signs 01/11/2023 7:16 EDT Temperature Temporal Artery 36.0 DegC Apical Heart Rate 54 bpm LOW Respiratory Rate 19 br/min Systolic Blood Pressure Non-Invasive 127 mmHg Diastolic Blood Pressure Non-Invasive 50 mmHg <LLOW Vital Signs(last 24 hrs) Last Charted Resp Rate 19 br/min (JANUARY 11 07:16) MYQ116 mmHg (JANUARY 11 07:16) DBPC 50mmHg (JANUARY 11:16) Measurements from flowsheet : Measurements 01/11/2023 7:16 EDT Height 152.4 cm Admission Weight 77.5 kg Weight Method Stated Condon Body Weight 45.50 kg Pain assessment: Pain Assessment 01/11/2023 7:16 EDT Primary Pain Location Hip Primary Pain Laterality Left Primary Pain Intensity 5 Pain Scale Type 0-10 Pain scale . General: Alert and oriented. Airway: Normal temporomandibular joint mobility. Mallampati classification: II (soft palate, fauces, uvula visible). Head: Normocephalic. Dentition Evaluation: Own teeth. Neck: Supple. Respiratory: Lungs are clear to auscultation. Cardiovascular: Normal rate. Heart Sounds: Normal. Gastrointestinal: Soft. Musculoskeletal Normal range of motion. Integumentary: Intact. Neurologic: Alert, Oriented. Review / Management Results review: No qualifying data available , Lab results 01/11/2023 7:39 EDT citric acid-sodium citrate Not Done: Other (Not Done) 01/11/2023 7:38 EDT SN - Preop - CTm Pt in SDS Room 01/11/2023 6:45 SN - Preop - CTm Pt Ready for OR/Proced 01/11/2023 7:40 01/11/2023 7:37 EDT celecoxib 400 mg mg 01/11/2023 7:34 EDT SN - CAt - Case Attendee SN - CAt - Case Attendee 01/11/2023 7:30 EDT SN - CAt - Case Attendee SN - CAt - Case Attendee SN - CAt - Case Attendee SN - CAt - Case Attendee SN - CAt - Case Attendee SN - CAt - Case Attendee SN - CAt - Case Attendee SN - CAt - Case Attendee SN - CAt - Role Performed Primary Surgeon SN - CAt - Role Performed Mud Mill Tender 1 SN - CAt - Role Performed SURVEILLANCE DIRECTOR SN - CAt - Role Performed Scrub 1 SN - CAt - Role Performed Nut Culler 1 01/11/2023 7:28 EDT Lactated Ringers Injection 1,000 mL mL 01/11/2023 7:25 EDT Hand Right 01/11/2023 20 gauge Peripheral IV Activity: Insert new site Peripheral IV Dressing Condition: Clean, Dry, Intact Peripheral IV Dressing Activity: Applied, Transparent dressing Peripheral IV Line Status/Patency: Flushes easily Peripheral IV Line Care: Secured with tape Peripheral IV Site Condition: No complications Peripheral IV Equipment: Extension set, PRN Adaptor Peripheral IV Number of Attempts: 1 01/11/2023 7:16 EDT Blood Glucose, Capillary 123 mg/dL RI Designated Person #1 We May Share AMANDA Lozano [phone] Designated Person #1 Relationship Spouse Privacy Restrictions Requested None Height 152.4 cm Admission Weight 77.5 kg Weight Method Stated Condon Body Weight 45.50 kg Temperature Temporal Artery 36.0 DegC Apical Heart Rate 54 bpm LOW Respiratory Rate 19 br/min Systolic Blood Pressure Non-Invasive 127 mmHg Diastolic Blood Pressure Non-Invasive 50 mmHg <LLOW Primary Pain Location Hip Primary Pain Laterality Left Primary Pain Intensity 5 Pain Scale Type 0-10 Pain scale Heart Rhythm Regular Oxygen Therapy Room air Oxygen Saturation 94 % Abdomen Description Non-distended, Soft Bowel Sounds All Quadrants Present Urinary Elimination Voiding, no difficulties Status N/A Skin Integrity Intact IV Present Present Neurological Symptoms Patient denies Characteristics of Speech Clear Level of Consciousness Alert Affect/Behavior Appropriate, Calm, Cooperative Orientation Oriented x 4 Sensory Deficits Hearing deficit, left ear, Hearing deficit, right ear Sleep Apnea Snore Yes Sleep Apnea Tired Yes Sleep Apnea Obstruction Yes Sleep Apnea Pressure Yes Sleep Apnea BMI Yes Sleep Apnea Age Yes Sleep Apnea Neck Yes Sleep Apnea Gender No Sleep Apnea Score 7 >HHI High Risk for Sleep Apnea Yes Diagnosed With Sleep Apnea Yes Advanced Directives Yes Advance Directive Location Patient instructed to bring in copy Infectious Disease Symptoms Patient states no symptoms Infectious Disease Recent Exposure No Alcohol and Drug Use No Employee of Institutional Living No Health Care Employee No History of Exposure to TB No History of Positive Chest X-Ray for TB No History of Positive TB Skin Test No Homeless No Known Immunosuppression No Recent Immigrant No Resident of Institutional Living No Bloody Sputum No Fatigue No Fever No Loss of Appetite No Night Sweats No Persistent Cough > 3 Weeks No Weight Loss No Allergies Yes Gas Welder On Yes Consent Form Signed Yes Patient Dressed In Hospital gown Pre-op Preparation Glasses removed, Hearing aid, left removed, Hearing aid, right removed CHG Preoperative Wash/Wipe Night before procedure, Day of procedure, Site specific wipe Non-CHG Preoperative Shampoo Completed Preop Nasal Swab Povidone-Iodine History & Physical Update On Chart Yes History & Physical On Chart Yes Obstructive Sleep Apnea Assess Completed Yes Orientation Assessment Oriented x 4 Safety Brochure Information Reviewed Yes [facility] Video Viewed No Barriers to Learning None evident Teaching Method Explanation Teaching Evaluation No further teaching needed Preferred Written Language Nigerien Preferred Spoken Language Nigerien Information Given by Patient Patient's Current Physicians Patient's Current Physicians Discharge To, Anticipated Home with family care Activity Status ADL Awake, Repositions self NPO Status Maintained, More than 8 hours Standard Safety ID band on, Allergy Band on, Call device within reach, Bed in low position, Wheels locked, Safety level maintained Prev Test Positive/Diagnosis w/COVID-19 No Current Quarantine/Isolated any Illness No Any Contact with Sick Animals/Birds No Traveled Anywhere in Last 30 Days No Allergy Band on and Verified Yes Patient ID Band on and Verified Yes Implants Verified Yes Pacemaker/AICD Verified No Anesthesia Consent Signed Yes Blood Consent Signed Yes Last Fluid Intake 01/11/2023 21:00 Last Food Intake 01/10/2023 21:00 Last Void 01/11/2023 6:00 Patient Cleared for Surgery By TERRANCE ALONSO MD Lost Weight Unintentionally Recently No Eat Poorly Due to Decreased Appetite No Total MST Score 0 N/A Personal Devices, Patient Valuables Glasses, Hearing aid, left, Hearing aid, right Anesthesia/Transfusions Prior anesthesia Admission Note-Nursing Same Day Patient History . Assessment and Plan [place] [employer]iologists (ASA) physical status classification: Class III. Anesthetic Preoperative Plan Premedication: intravenous. Anesthetic technique: General. Induction: intravenously. Maintenance airway: Oral endotracheal tube. Postoperative pain management: Per surgeon. Risks discussed: nausea, vomiting, sore throat. Informed consent: signed by patient. Digitally Signed by KRISTEN CATHERINE on 01/11/2023 07:43 AM [facility] 11-10-2021 History of Presen t illness Narrative Images from the original note were not included. This note was created using [employer] Subjective Susan Chandler is a 76 year old female. HPI Presents with a cat bite x1 day. She states her cat was sitting on her lap when it bit her out of nowhere. States sometimes a cat will bite playfully. The cat is up-to-date on immunizations. No fever. Patient is diabetic. No body aches or chills. Review of Systems Skin: Cat bite right forearm All other systems reviewed and are negative. No past medical history on file. Current Outpatient Medications Medication Sig Dispense Refill albuterol HFA (PROVENTIL HFA, VENTOLIN HFA) 90 mcg/actuation inhaler INHALE 2 (TWO) PUFFS EVERY 4 HOURS NEEDED atenolol (TENORMIN) 50 mg tablet escitalopram oxalate (LEXAPRO) 10 mg tablet diclofenac (VOLTAREN) 1 % topical gel Apply 2 gm to affected area 3 times a day gabapentin (NEURONTIN) 300 mg capsule Take 300 mg by mouth three times daily. metFORMIN (GLUCOPHAGE) 500 mg tablet nabumetone (RELAFEN) 750 mg tablet Take 750 mg by mouth twice daily. TAKE WITH FOOD. aspirin, enteric coated (ASPIRIN, ENTERIC COATED) 81 mg EC tablet Take 81 mg by mouth once daily. traZODone (DESYREL) 50 mg tablet TAKE 2 TABLETS BY MOUTH EVERY DAY AT BEDTIME doxycycline (VIBRA-TABS) 100 mg tablet Take 1 tablet by mouth twice daily for 10 days. 20 tablet 0 metroNIDAZOLE (FLAGYL) 500 mg tablet Take 1 tablet by mouth three times daily for 10 days. 30 tablet 0 No current facility-administered medications for this visit. No past surgical history on file. No family history on file. Social History Tobacco Use Smoking status: Current Every Day Smoker Smokeless tobacco: Never Used Substance Use Topics Alcohol use: Never Drug use: Never Objective BP 130/78 Pulse 64 Temp 36.8 C (98.3 F) Resp 16 Wt 85.5 kg (188 lb 6.4 oz) SpO2 97% Physical Exam Vitals reviewed. Skin: General: Skin is warm and dry. Comments: Patient has three puncture wounds surrounded by erythema and warmth on the right forearm. Area is circled in pen as well. No lymphangitic streaking. Some mild swelling. No fb palpated. Assessment and Plan ASSESSMENT/PLAN: 1. Infected cat bite, initial encounter - ICD9: 879.9, E906.3, ICD10: W55.01XA Tdap updated today. Patient allergic to penicillin so I did place her on doxycycline and Flagyl. Discussed red flags to be seen in the emergency department. This was her own personal cat that is up-to-date on rabies vaccine. Patient agreeable with plan. - DOXYCYCLINE HYCLATE 100 MG TABLET - METRONIDAZOLE 500 MG TABLET - TDAP VACCINE AGE 7+ IM Rayna Birch PA-C documented in this encounter [facility] Evaluation + Plan note Future Appointments [facility] Evaluation note Diagnosis Infected cat bite, initial encounter- Primary [facility] noteNo assessment information availableWLake[facility] Work Phone: Evaluation note* Diagnosis COPD with exacerbation (HCC)- Primary Obstructive chronic bronchitis with exacerbation [facility] Diagnosis COPD (chronic obstructive pulmonary disease) with acute bronchitis (HCC)- Primary Obstructive chronic bronchitis with acute bronchitis Acute cough Wheeze Wheezing [facility] Diagnosis Complete tear of right rotator cuff, unspecified whether traumatic- Primary Glenohumeral arthritis, right [facility] Diagnosis Complete tear of right rotator cuff, unspecified whether traumatic- Primary Glenohumeral arthritis, right [facility]* Diagnosis Glenohumeral arthritis, right- Primary Complete tear of right rotator cuff, unspecified whether traumatic Glenohumeral arthritis, right Complete tear of right rotator cuff, unspecified whether traumatic [facility] Diagnosis Pre-operative examination- Primary Preoperative examination, unspecified Abnormal electrocardiogram Nonspecific abnormal electrocardiogram (ECG) (EKG) Essential (primary) hypertension Unspecified essential hypertension History of tobacco use Personal history of tobacco use, presenting hazards to health Chronic obstructive pulmonary disease, unspecified COPD type (HCC) Depressive disorder Depressive disorder, not elsewhere classified Mixed hyperlipidemia RBBB Right bundle branch block Abnormal EKG Nonspecific abnormal electrocardiogram (ECG) (EKG) Class 2 severe obesity due to excess calories with serious comorbidity and body mass index (BMI) of 37.0 to 37.9 in adult ([facility]) JEANINE (obstructive sleep apnea) Obstructive sleep apnea (adult) (pediatric) Type 2 diabetes mellitus without complication, without long-term current use of insulin ([facility]) Glenohumeral arthritis, right Complete tear of right rotator cuff, unspecified whether traumatic * Assessment & Plan Note - Nestor Ruby APRN.CNP - 02/10/2024 10:22 AM EDT Associated Problem(s): Type 2 diabetes mellitus without complication, without long-term current useof insulin ([facility]) Assessment: controlled on oral agent, new A1c pending * Assessment & Plan Note - Nestor Ruby APRN.CNP - 02/10/2024 10:22 AM EDT Associated Problem(s): JEANNIE (obstructive sleep apnea) Assessment: c/w CPAP * Assessment & Plan Note - Nestor Ruby APRN.CNP - 02/10/2024 10:21 AM EDT Associated Problem(s): Class 2 severe obesity due to excess calories with serious comorbidity and body mass index (BMI) of 37.0 to 37.9 in adult ([facility]) Assessment: Body mass index is 37.5 kg/m . * Assessment & Plan Note - Nestor Ruby APRN.CNP - 02/10/2024 10:20 AM EDT Associated Problem(s): Abnormal electrocardiogram Assessment: echo and Lexiscan ordered Today's EKG, no previous EKG's to compare to SINUS BRADYCARDIA WITH SINUS ARRHYTHMIA COMPLETE RIGHT BUNDLE BRANCH BLOCK CANNOT EXCLUDE INFERIOR MYOCARDIAL INFARCTION , AGE UNDETERMINED ABNORMAL ECG * Assessment & Plan Note - Nestor Ruby APRN.CNP - 02/10/2024 10:19 AM EDT Associated Problem(s): RBBB Assessment: per EKG, no previous to compare * Assessment & Plan Note - Nestor Ruby APRN.CNP - 02/10/2024 10:18 AM EDT Associated Problem(s): Mixed hyperlipidemia Assessment: c/w statin * Assessment & Plan Note - Nestor Ruby APRN.CNP - 02/10/2024 10:18 AM EDT Associated Problem(s): Depressive disorder Assessment: and anxiety, stable on rx per pt * Assessment & Plan Note - Nestor Ruby APRN.CNP - 02/10/2024 10:18 AM EDT Associated Problem(s): COPD (chronic obstructive pulmonary disease) (HCC) Assessment: uses no inhalers, following Dr. Kinney at [facility], records requested * Assessment & Plan Note - Nestor Ruby APRN.CNP - 02/10/2024 10:17 AM EDT Associated Problem(s): History of tobacco use Assessment: 1-1.5ppd/60 years * Assessment & Plan Note - Nestor Ruby APRN.CNP - 02/10/2024 10:17 AM EDT Associated Problem(s): Essential (primary) hypertension Assessment: controlled on rx Last 14 BP Last 14 Encounter BP Readings: Date: BP: 02/10/2024 130/72 04/01/2023 122/78 03/27/2023 124/80 11/10/2021 130/78 documented in this encounter [facility] note* Diagnosis Pre-operative examination Preoperative examination, unspecified Abnormal electrocardiogram Nonspecific abnormal electrocardiogram (ECG) (EKG) Glenohumeral arthritis, right Complete tear of right rotator cuff, unspecified whether traumatic documented in this encounter [facility] note* Diagnosis Chronic right shoulder pain- Primary Pain in joint, shoulder region documented in this encounter [facility] note* Diagnosis Glenohumeral arthritis, right documented in this encounter [facility] note* Diagnosis Chronic right shoulder pain- Primary Pain in joint, shoulder region documented in this encounter [facility] note* Diagnosis 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, right documented in this encounter [facility] note* Diagnosis Glenohumeral arthritis, right- Primary documented in this encounter [facility] note* Diagnosis Status post reverse total replacement of right shoulder- Primary Acute pain of right shoulder documented in this encounter [facility] note* Diagnosis Pre-operative examination- Primary Preoperative examination, unspecified Abnormal electrocardiogram Nonspecific abnormal electrocardiogram (ECG) (EKG) Essential (primary) hypertension Unspecified essential hypertension History of tobacco use Personal history of tobacco use, presenting hazards to health Chronic obstructive pulmonary disease, unspecified COPD type ([facility]) Depressive disorder Depressive disorder, not elsewhere classified Mixed hyperlipidemia RBBB Right bundle branch block Abnormal EKG Nonspecific abnormal electrocardiogram (ECG) (EKG) Class 2 severe obesity due to excess calories with serious comorbidity and body mass index (BMI) of 37.0 to 37.9 in adult ([facility]) JEANNIE (obstructive sleep apnea) Obstructive sleep apnea (adult) (pediatric) Type 2 diabetes mellitus without complication, without long-term current use of insulin ([facility]) Hypoxemia Grade I diastolic dysfunction Pulmonary hypertension (HCC) 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- Primary Acute pain of right shoulder [facility] Diagnosis Pre-operative examination- Primary Preoperative examination, unspecified Abnormal electrocardiogram Nonspecific abnormal electrocardiogram (ECG) (EKG) Essential (primary) hypertension Unspecified essential hypertension History of tobacco use Personal history of tobacco use, presenting hazards to health Chronic obstructive pulmonary disease, unspecified COPD type (HCC) Depressive disorder Depressive disorder, not elsewhere classified Mixed hyperlipidemia RBBB Right bundle branch block Abnormal EKG Nonspecific abnormal electrocardiogram (ECG) (EKG) Class 2 severe obesity due to excess calories with serious comorbidity and body mass index (BMI) of 37.0 to 37.9 in adult (HCC) JEANNIE (obstructive sleep apnea) Obstructive sleep apnea (adult) (pediatric) Type 2 diabetes mellitus without complication, without long-term current use of insulin (HCC) Hypoxemia Grade I diastolic dysfunction Pulmonary hypertension (HCC) Other chronic pulmonary heart diseases Chronic right shoulder pain Pain in joint, shoulder region documented in this encounter [facility] note* Diagnosis Pre-operative examination- Primary Preoperative examination, unspecified Abnormal electrocardiogram Nonspecific abnormal electrocardiogram (ECG) (EKG) Essential (primary) hypertension Unspecified essential hypertension History of tobacco use Personal history of tobacco use, presenting hazards to health Chronic obstructive pulmonary disease, unspecified COPD type (HCC) Depressive disorder Depressive disorder, not elsewhere classified Mixed hyperlipidemia RBBB Right bundle branch block Abnormal EKG Nonspecific abnormal electrocardiogram (ECG) (EKG) Class 2 severe obesity due to excess calories with serious comorbidity and body mass index (BMI) of 37.0 to 37.9 in adult (HCC) JEANNIE (obstructive sleep apnea) Obstructive sleep apnea (adult) (pediatric) Type 2 diabetes mellitus without complication, without long-term current use of insulin (HCC) Hypoxemia Grade I diastolic dysfunction Pulmonary hypertension (HCC) Other chronic pulmonary heart diseases Glenohumeral arthritis, right- Primary [facility] Diagnosis Pre-operative examination- Primary Preoperative examination, unspecified Abnormal electrocardiogram Nonspecific abnormal electrocardiogram (ECG) (EKG) Essential (primary) hypertension Unspecified essential hypertension History of tobacco use Personal history of tobacco use, presenting hazards to health Chronic obstructive pulmonary disease, unspecified COPD type (HCC) Depressive disorder Depressive disorder, not elsewhere classified Mixed hyperlipidemia RBBB Right bundle branch block Abnormal EKG Nonspecific abnormal electrocardiogram (ECG) (EKG) Class 2 severe obesity due to excess calories with serious comorbidity and body mass index (BMI) of 37.0 to 37.9 in adult (HCC) JEANNIE (obstructive sleep apnea) Obstructive sleep apnea (adult) (pediatric) Type 2 diabetes mellitus without complication, without long-term current use of insulin (HCC) Hypoxemia Grade I diastolic dysfunction Pulmonary hypertension (HCC) Other chronic pulmonary heart diseases Glenohumeral arthritis, right- Primary documented in this encounter [facility] note* Diagnosis Pre-operative examination- Primary Preoperative examination, unspecified Abnormal electrocardiogram Nonspecific abnormal electrocardiogram (ECG) (EKG) Essential (primary) hypertension Unspecified essential hypertension History of tobacco use Personal history of tobacco use, presenting hazards to health Chronic obstructive pulmonary disease, unspecified COPD type (HCC) Depressive disorder Depressive disorder, not elsewhere classified Mixed hyperlipidemia RBBB Right bundle branch block Abnormal EKG Nonspecific abnormal electrocardiogram (ECG) (EKG) Class 2 severe obesity due to excess calories with serious comorbidity and body mass index (BMI) of 37.0 to 37.9 in adult (HCC) JEANNIE (obstructive sleep apnea) Obstructive sleep apnea (adult) (pediatric) Type 2 diabetes mellitus without complication, without long-term current use of insulin (HCC) Hypoxemia Grade I diastolic dysfunction Pulmonary hypertension (HCC) Other chronic pulmonary heart diseases Glenohumeral arthritis, right- Primary documented in this encounter [facility] note* Diagnosis Pre-operative examination- Primary Preoperative examination, unspecified Abnormal electrocardiogram Nonspecific abnormal electrocardiogram (ECG) (EKG) Essential (primary) hypertension Unspecified essential hypertension History of tobacco use Personal history of tobacco use, presenting hazards to health Chronic obstructive pulmonary disease, unspecified COPD type (HCC) Depressive disorder Depressive disorder, not elsewhere classified Mixed hyperlipidemia RBBB Right bundle branch block Abnormal EKG Nonspecific abnormal electrocardiogram (ECG) (EKG) Class 2 severe obesity due to excess calories with serious comorbidity and body mass index (BMI) of 37.0 to 37.9 in adult (HCC) JEANNIE (obstructive sleep apnea) Obstructive sleep apnea (adult) (pediatric) Type 2 diabetes mellitus without complication, without long-term current use of insulin (HCC) Hypoxemia Grade I diastolic dysfunction Pulmonary hypertension (HCC) Other chronic pulmonary heart diseases Glenohumeral arthritis, right- Primary documented in this encounter [facility] note* Diagnosis Pre-operative examination- Primary Preoperative examination, unspecified Abnormal electrocardiogram Nonspecific abnormal electrocardiogram (ECG) (EKG) Essential (primary) hypertension Unspecified essential hypertension History of tobacco use Personal history of tobacco use, presenting hazards to health Chronic obstructive pulmonary disease, unspecified COPD type (HCC) Depressive disorder Depressive disorder, not elsewhere classified Mixed hyperlipidemia RBBB Right bundle branch block Abnormal EKG Nonspecific abnormal electrocardiogram (ECG) (EKG) Class 2 severe obesity due to excess calories with serious comorbidity and body mass index (BMI) of 37.0 to 37.9 in adult (HCC) JEANNIE (obstructive sleep apnea) Obstructive sleep apnea (adult) (pediatric) Type 2 diabetes mellitus without complication, without long-term current use of insulin ([facility]) Hypoxemia Grade I diastolic dysfunction Pulmonary hypertension ([facility]) 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- Primary documented in this encounter [facility] course Narrative No data available for this section [facility] Hospital Discharge instructions No data available for this section [facility] Progress note No data available for this section [facility] Reason for referral (narrative)* Diagnostic Procedure Only (Routine) - Authorized Specialty Diagnoses / Procedures Referred By Marcelina snow Referred To Contact MOLECULAR & FUNCTIONAL IMAGING Diagnoses Pre-operative examination Abnormal electrocardiogram Procedures NM CARDIAC PERF STRESS/PHARM MYOCARDIAL SPECT MULTIPLE STUDIES Nestor Ruby APRN.[employer]PLE ME[employer] C[employer]TER [address] [place] [address] Molecular [facility] Functional Imaging [address] [place] [address] Referral ID Status Reason Start Date Expiration Date Visits Requested Visits Authorized [id number] Authorized Auto-Generat ed Referral 02/10/2024 03/11/2025 1 1 * Outpatient Procedure (Routine) - Authorized Specialty Diagnoses / Procedures Referred By Marcelina snow Referred To Contact [facility] Diagnoses Pre-operative examination Abnormal electrocardiogram Procedures ECHO ECHO TTHRC R-T 2D W/WOM-MODE COMPL SPEC&COLR D Nestor Ruby APRN.[employer] C[employer] [address] [place] [address] [facility] [place] [address] [place] [id number] Referral ID Status Reason Start Date Expiration Date Visits Requested Visits Authorized [id number] Authorized Auto-Generat ed Referral 02/10/2024 02/09/2025 1 1 * Outpatient Procedure (Routine) - Pending Review Specialty Diagnoses / Procedures Referred By Contac t Referred To Contact [facility] Diagnoses Pre-operative examination Procedures ECG COMPLETE ECG ROUTINE ECG W/LEAST 12 LDS W/I&R Nestor Ruby APRN.CNP [address] [place] [address] [facility] [address] [address] Referral ID Status Reason Start Date Expiration Date Visits Requested Visits Authorized [id number] Pending Review Auto-Generat ed Referral 02/10/2024 02/09/2025 1 1 [facility] for referral (narrative)* Diagnostic Procedure Only (Routine) - New Request Specialty Diagnoses / Procedures Referred By Contac t Referred To Contact XR IMAGING Diagnoses Chronic right shoulder pain Procedures XR SHOULDER GENERAL 3V OR MORE AP/TRUE AP/OTHER RIGHT RADEX SHOULDER COMPLETE MINIMUM 2 VIEWS Jens Acevedo PA-C [address] [place] [address] [facility] Referral ID Status Reason Start Date Expiration Date Visits Requested Visits Authorized [id number] New Request Auto-Generat ed Referral 02/24/2024 03/25/2025 1 1 [facility] for referral (narrative)* Diagnostic Procedure Only (Routine) - New Request Specialty Diagnoses / Procedures Referred By Contac t Referred To Contact XR IMAGING Diagnoses Chronic right shoulder pain Procedures XR SHOULDER GENERAL 3V OR MORE AP/TRUE AP/OTHER RIGHT RADEX SHOULDER COMPLETE MINIMUM 2 VIEWS Jens Acevedo PA-C [address] [place] [address] [place] [address] Referral ID Status Reason Start Date Expiration Date Visits Requested Visits Authorized [id number] New Request Auto-Generat ed Referral 03/02/2024 04/01/2025 1 1 [facility] for referral (narrative)* Diagnostic Procedure Only (Routine) - New Request Specialty Diagnoses / Procedures Referred By Contac t Referred To Contact XR IMAGING Diagnoses Status post reverse total replacement of right shoulder Procedures XR SHOULDER 3V AP/Y VIEW/AXILLARY RIGHT ([place]) RADEX SHOULDER COMPLETE MINIMUM 2 VIEWS Jens Acevedo PA-C [address] [place] [address] [place] [address] Referral ID Status Reason Start Date Expiration Date Visits Requested Visits Authorized [id number] New Request Auto-Generat ed Referral 03/13/2024 04/12/2025 1 1 [facility] for referral (narrative)* Diagnostic Procedure Only (Routine) - New Request Specialty Diagnoses / Procedures Referred By Contac t Referred To Contact XR IMAGING Diagnoses Status post reverse total replacement of right shoulder Acute pain of right shoulder Procedures XR SHOULDER 3V AP/Y VIEW/AXILLARY RIGHT ([place]) RADEX SHOULDER COMPLETE MINIMUM 2 VIEWS Tatiana Sutherland MD [address] [facility]. [facility] [address] [place] [address] [place] [address] Referral ID Status Reason Start Date Expiration Date Visits Requested Visits Authorized [id number] New Request Auto-Generat ed Referral 04/10/2024 05/10/2025 1 1 T [facility] for referral (narrative)* Diagnostic Procedure Only (Routine) - Closed Specialty Diagnoses / Procedures Referred By Contac t Referred To Contact XR IMAGING Diagnoses Chronic right shoulder pain Procedures XR SHOULDER GENERAL 3V OR MORE AP/TRUE AP/OTHER RIGHT RADEX SHOULDER COMPLETE MINIMUM 2 VIEWS Jens Acevedo PA-C [address] [place] [address] [facility] Referral ID Status Reason Start Date Expiration Date V isits Requested Visits Authorized [id number] Closed Auto-Generate d Referral 02/24/2024 03/25/2025 1 1 [facility] for referral (narrative)* Diagnostic Procedure Only (Routine) - New Request Specialty Diagnoses / Procedures Referred By Marcelina snow Referred To Contact XR IMAGING Diagnoses Status post reverse total replacement of right shoulder Procedures XR SHOULDER 3V AP/Y VIEW/AXILLARY RIGHT ([place]) RADEX SHOULDER COMPLETE MINIMUM 2 VIEWS Tatiana Sutherland MD [address] [facility]. [address] [place] [address] [facility] Referral ID Status Reason Start Date Expiration Date Visits Requested Visits Authorized [id number] New Request Auto-Generat ed Referral 07/05/2025 1 1 [facility] for referral (narrative)No reason for referral information availableWLakeHealth [facility] Phone: [id number] Narrative* Diagnostic Procedure Only (Routine) - Authorized Specialty Diagnoses / Procedures Referred By Marcelina snow Referred To Contact MOLECULAR [facility] FUNCTIONAL IMAGING Diagnoses Pre-operative examination Abnormal electrocardiogram Procedures NM CARDIAC PERF STRESS/PHARM MYOCARDIAL SPECT MULTIPLE STUDIES Nestor Ruby, SENIOR CLIENT ADVISOR.[employer]PLE ME[employer] CUTTER [address] [place] [address] Molecular [facility] Functional [facility] [address] [place], [place] [id number] Referral ID Status Reason Start Date Expiration Date Visits Requested Visits Authorized [id number] Authorized Auto-Generat ed Referral 02/10/2024 03/11/2025 1 [facility] Diagnostic Procedure Only (Routine) - Closed Specialty Diagnoses / Procedures Referred By Contac t Referred To Contact XR IMAGING Diagnoses Chronic right shoulder pain Procedures XR SHOULDER GENERAL 3V OR MORE AP/TRUE AP/OTHER RIGHT RADEX SHOULDER COMPLETE MINIMUM 2 VIEWS Jens Acevedo PA-C [address] [place] [address] [place] [address] Referral ID Status Reason Start Date Expiration Date V isits Requested Visits Authorized [id number] Closed Auto-Generate d Referral 02/24/2024 03/25/2025 1 1 [facility] Summary Purpose Family History No Family History Records Found Relationship Condition Age at Onset Recorded Date/T carlos a mother Cerebrovascular accident (CVA) Unknown Advance Directives No Advanced Directives Records Found Advance Directive Response Recorded Date/ Time Advance Directives Yes April 10, 2020 7:03am Living Will Yes March 11, 2021 9:17am Power of Turbine Technician Yes March 11 9:17am Advance Directive Response Recorded Date/ Time Name of Medical Power of Turbine Technician - HOWAR D August 26, 2022 5:30pm Advance Directives Yes April 10, 2020 6:03am Living Will Yes August 26 5:30pm Power of Turbine Technician Yes August 26, 2022 5:30pm Advance Directive Response Recorded Date/ Time Name of Medical Power of Turbine Technician - HOWAR D August 26, 2022 6:30pm Advance Directives Yes April 10, 2020 7:03am Living Will Yes August 26 6:30pm Power of Turbine Technician Yes August 26, 2022 6:30pm Advance Directive Response Recorded Date/ Time Advance Directives Yes April 10, 2020 7:03am Living Will Yes August 26 6:30pm Power of Turbine Technician Yes August 26, 2022 6:30pm Advance Directive Response Recorded Date/ Time Advance Directives Yes April 10, 2020 6:03am Living Will Yes August 26 5:30pm Power of Turbine Technician Yes August 26, 2022 5:30pm Advance Directive Response Recorded Date/ Time Advance Directives Yes April 10, 2020 7:03am Chief Complaint and Reason for Visit Chief Complaint HX NICOTINE DEPENDEN CE Chief Complaint HX NICOTINE DEPENDEN CE ABN LABS Chief Complaint HX NICOTINE DEPENDEN CE ABN LABS ADD XRAY- BRONCHITIS Chief Complaint ABN LABS ADD XRAY- BRONCHITIS HEPATOMEGALY Chief Complaint ABN LABS ADD XRAY- BRONCHITIS HEPATOMEGALY SKIN Chief Complaint NICOTINE DEP Chief Complaint Admit Date OSTEO May 09, 2025 2:46pm Medications Administered Section Inactive Administered Medications - up to 3 most recent administrations Medication Order MAR Action Action Date Dose Rate Site albuterol 2.5 mg /3 mL (0.083 %) 2.5 mg (PROVENTIL) 2.5 mg, INHALATION, ONCE, 1 dose, On Tue03/27/23 at 1200 Given 03/27/2023 11:57 AM EDT 2.5 mg Inactive Administered Medications - up to 3 most recent administrations Medication Order MAR Action Action Date Dose Rate Site albuterol 2.5 mg /3 mL (0.083 %) 2.5 mg (PROVENTIL) 2.5 mg, INHALATION, ONCE, 1 dose, On Tue04/01/23 at 1400 Given 04/01/2023 1:46 PM EDT 2.5 mg Reason for Referral Specialty Diagnoses / Procedures Referred By Marcelina snow Referred To Contact [facility] Diagnoses Glenohumeral arthritis, right Procedures CONSULT TO PHYSICAL THERAPY PHYSICAL THERAPY EVALUATION [facility] COMPLEX 45 MINS Jens Acevedo PA-C [address] [place] [address] [facility] [address] [address] Referral ID Status Reason Start Date Expiration Date Visits Requested Visits Authorized [id number] Pending Review Auto-Generat ed Referral 01/27/2024 01/26/2025 1 1 Specialty Diagnoses / Procedures Referred By Marcelina snow Referred To Contact Orthopedics Diagnoses Complete tear of right rotator cuff, unspecified whether traumatic Glenohumeral arthritis, right Procedures CONSULT TO ORTHOPAEDICS OFFICE/OUTPATIENT [facility] 60 MINUTES Orin Casas PA-C [address] [place] [address] Referral ID Status Reason Start Date Expiration Date Visits Requested Visits Authorized [id number] Authorized PCP Requested Referral 12/23/2023 12/22/2024 1 1 Additional Source Comments INFORMATION SOURCE (unrecogn ized section and content) DATE CREATED AUTHOR 11/10/2020 Roney Vaughanbarbara [facility] DATE CREATED AUTHOR AUTHOR'S ORGANIZ ATION 01/23/2023 [facility] DATE CREATED AUTHOR AUTHOR'S ORGANIZ ATION 03/06/2024 [facility] DATE CREATED AUTHOR AUTHOR'S ORGANIZ ATION 05/21/2024 [facility] DATE CREATED AUTHOR AUTHOR'S ORGANIZ ATION 06/07/2024 [facility] DATE CREATED AUTHOR AUTHOR'S ORGANIZ ATION 06/25/2025 [facility] Source Comments (unrecognize d section and content) In the event this informatio n is protected by the Federal Confidentiality of Alcohol and Drug Abuse Patient Records regulations: The Federal rules restrict any use of the information to criminally investigate or prosecute any alcohol or drug abuse patient.[facility] the event this information is protected by the Federal Confidentiality of Alcohol and Drug Abuse Patient Records regulations: The Federal rules restrict any use of the information to criminally investigate or prosecute any alcohol or drug abuse patient.[facility] Hospital[facility] the event this information is protected by the Federal Confidentiality of Alcohol and Drug Abuse Patient Records regulations: The Federal rules restrict any use of the information to criminally investigate or prosecute any alcohol or drug abuse patient.[facility] HospitalIn the event this information is protected by the Federal Confidentiality of Alcohol and Drug Abuse Patient Records regulations: The Federal rules restrict any use of the information to criminally investigate or prosecute any alcohol or drug abuse patient.[facility] HospitalIn the event this information is protected by the Federal Confidentiality of Alcohol and Drug Abuse Patient Records regulations: The Federal rules restrict any use of the information to criminally investigate or prosecute any alcohol or drug abuse patient.[facility] Hospital[facility] the event this information is protected by the Federal Confidentiality of Alcohol and Drug Abuse Patient Records regulations: The Federal rules restrict any use of the information to criminally investigate or prosecute any alcohol or drug abuse patient.[facility] Hospital[facility] the event this information is protected by the Federal Confidentiality of Alcohol and Drug Abuse Patient Records regulations: The Federal rules restrict any use of the information to criminally investigate or prosecute any alcohol or drug abuse patient.[facility] HospitalIn the event this information is protected by the Federal Confidentiality of Alcohol and Drug Abuse Patient Records regulations: The Federal rules restrict any use of the information to criminally investigate or prosecute any alcohol or drug abuse patient.[facility] HospitalIn the event this information is protected by the Federal Confidentiality of Alcohol and Drug Abuse Patient Records regulations: The Federal rules restrict any use of the information to criminally investigate or prosecute any alcohol or drug abuse patient.[facility] Hospital[facility] the event this information is protected by the Federal Confidentiality of Alcohol and Drug Abuse Patient Records regulations: The Federal rules restrict any use of the information to criminally investigate or prosecute any alcohol or drug abuse patient.[facility] HospitalIn the event this information is protected by the Federal Confidentiality of Alcohol and Drug Abuse Patient Records regulations: The Federal rules restrict any use of the information to criminally investigate or prosecute any alcohol or drug abuse patient.[facility] HospitalIn the event this information is protected by the Federal Confidentiality of Alcohol and Drug Abuse Patient Records regulations: The Federal rules restrict any use of the information to criminally investigate or prosecute any alcohol or drug abuse patient.[facility] Hospital[facility] the event this information is protected by the Federal Confidentiality of Alcohol and Drug Abuse Patient Records regulations: The Federal rules restrict any use of the information to criminally investigate or prosecute any alcohol or drug abuse patient.[facility] Hospital[facility] the event this information is protected by the Federal Confidentiality of Alcohol and Drug Abuse Patient Records regulations: The Federal rules restrict any use of the information to criminally investigate or prosecute any alcohol or drug abuse patient.[facility] HospitalIn the event this information is protected by the Federal Confidentiality of Alcohol and Drug Abuse Patient Records regulations: The Federal rules restrict any use of the information to criminally investigate or prosecute any alcohol or drug abuse patient.[facility] HospitalIn the event this information is protected by the Federal Confidentiality of Alcohol and Drug Abuse Patient Records regulations: The Federal rules restrict any use of the information to criminally investigate or prosecute any alcohol or drug abuse patient.[facility] HospitalIn the event this information is protected by the Federal Confidentiality of Alcohol and Drug Abuse Patient Records regulations: The Federal rules restrict any use of the information to criminally investigate or prosecute any alcohol or drug abuse patient.[facility] HospitalIn the event this information is protected by the Federal Confidentiality of Alcohol and Drug Abuse Patient Records regulations: The Federal rules restrict any use of the information to criminally investigate or prosecute any alcohol or drug abuse patient.[facility] HospitalIn the event this information is protected by the Federal Confidentiality of Alcohol and Drug Abuse Patient Records regulations: The Federal rules restrict any use of the information to criminally investigate or prosecute any alcohol or drug abuse patient.[facility] HospitalIn the event this information is protected by the Federal Confidentiality of Alcohol and Drug Abuse Patient Records regulations: The Federal rules restrict any use of the information to criminally investigate or prosecute any alcohol or drug abuse patient.[facility] HospitalIn the event this information is protected by the Federal Confidentiality of Alcohol and Drug Abuse Patient Records regulations: The Federal rules restrict any use of the information to criminally investigate or prosecute any alcohol or drug abuse patient.[facility] HospitalIn the event this information is protected by the Federal Confidentiality of Alcohol and Drug Abuse Patient Records regulations: The Federal rules restrict any use of the information to criminally investigate or prosecute any alcohol or drug abuse patient.[facility] HospitalIn the event this information is protected by the Federal Confidentiality of Alcohol and Drug Abuse Patient Records regulations: The Federal rules restrict any use of the information to criminally investigate or prosecute any alcohol or drug abuse patient.[facility] HospitalIn the event this information is protected by the Federal Confidentiality of Alcohol and Drug Abuse Patient Records regulations: The Federal rules restrict any use of the information to criminally investigate or prosecute any alcohol or drug abuse patient.[facility] HospitalIn the event this information is protected by the Federal Confidentiality of Alcohol and Drug Abuse Patient Records regulations: The Federal rules restrict any use of the information to criminally investigate or prosecute any alcohol or drug abuse patient.[facility] HospitalIn the event this information is protected by the Federal Confidentiality of Alcohol and Drug Abuse Patient Records regulations: The Federal rules restrict any use of the information to criminally investigate or prosecute any alcohol or drug abuse patient.[facility] Reason for Visit (unrecogniz ed section and content) Reason Comments PT Discharge Specialty Diagnoses / Procedures Referred By Marcelina snow Referred To Contact [facility] Diagnoses Glenohumeral arthritis, right Procedures CONSULT TO PHYSICAL THERAPY PHYSICAL THERAPY EVALUATION HIGH COMPLEX 45 MINS Jens Acevedo PA-C [address] [place] [address] [facility] [place] [address] [place] [address] Referral ID Status Reason Start Date Expiration Date Visits Requested Visits Authorized [id number] Authorized Auto-Generat ed Referral 08/15/2023 08/14/2024 99 99 Reason Comments Physical Therapy Reason Comments PT Progress Note Reason Comments Appointment Cancelled Reason Comments Follow Up Pt reported cat bite x1 day prior, reported pain rated 9, warmth, redness Reason Comments Cough Chest congestion, wh eezing x4 days Reason Comments Cough Cough, chest congest ion and wheezing x 2 weeks Reason Comments Pain Reason Comments New Pain Specialty Diagnoses / Procedures Referred By Marcelina snow Referred To Contact Orthopedics Diagnoses Complete tear of right rotator cuff, unspecified whether traumatic Glenohumeral arthritis, right Procedures CONSULT TO ORTHOPAEDICS OFFICE/OUTPATIENT NEW HIGH MDM 60 MINUTES Orin Casas PA-C [address] [place] [address] Referral ID Status Reason Start Date Expiration Date V isits Requested Visits Authorized [id number] Closed PCP Requested Referral 12/23/2023 12/22/2024 1 1 Reason Comments Appointment Post-op PT Reason Comments Consult Reason Comments Request Outside Medical Records Reason Comments Radiology NM Specialty Diagnoses / Procedures Referred By Marcelina snow Referred To Contact [facility] Diagnoses Pre-operative examination Abnormal electrocardiogram Procedures NM CARDIAC PERF STRESS/PHARM MYOCARDIAL SPECT MULTIPLE STUDIES Nestor Ruby, SENIOR CLIENT ADVISOR.[employer] [address] [place] [address] [facility] [address] [place] [address] Referral ID Status Reason Start Date Expiration Date V isits Requested Visits Authorized [id number] Closed Auto-Generate d Referral 02/10/2024 03/11/2025 1 1 Reason Comments PT Eval Reason Comments Established Patient Follow Up Post Op Reason Comments Post Op Pain Reason Comments Follow Up Post Op Reason Comments Follow Up Care Teams (unrecognized sec tion and content) Yoker Machine Operator Relationship Specialty Start Date End Date Terrance Alonso [address] [facility] [address] [place], [place] [id number] PCP - General Family Practice 11/10/21 Team Status: Active Member Role Status Dates Dr. Terrance Alonso MD Family Provider Active Dr. Terrance Alonso MD Primary Care Provider Active Team Status: Inactive Member Role Status Dates Dr. Terrance Alonso MD Primary Care Provider Active Dr. Zaki Kinney MD Attending Provider, Referrin g Provider Active Team Status: Inactive Member Role Status Dates Dr. Terrance Alonso MD Primary Care Pr ovider, Attending Provider, Referring Provider Active Team Status: Active Member Role Status Dates Dr. Terrance Alonso MD Primary Care Provider Active Juliette Martinez CROCHETER, CROCHETER-C Attending Provider Active Team Status: Inactive Member Role Status Dates Dr. Terrance Alonso MD Primary Care Provider Active Dr. Kashmir Dasilva MD Emergency Provider Active Team Status: Active Member Role Status Dates Dr. Terrance Alonso MD Primary Care Pr ovider, Attending Provider, Referring Provider Active Team Status: Inactive Member Role Status Dates Dr. Terrance Alonso MD Primary Care Provider Active Juliette Martinez CROCHETER, CROCHETER-C Attending Provider Active Team Status: Inactive Member Role Status Dates Dr. Terrance Alonso MD Primary Care Provider Active Dr. Kashmir Dasilva MD Attending Provider, Emergency Provider Active Team Status: Inactive Member Role Status Dates Dr. Terrance Alonso MD Primary Care Provider Active Matthew RAYMOND PA Attending Provider, Referring Provi leatha Active Yoker Machine Operator Relationship Specialty Start Date End Date Terrance Alonso [address] [facility] [address] [place] [address] PCP - General Family Medicine 11/10/21 Yoker Machine Operator Relationship Specialty Start Date End Date Terrance Alonso MD [address] [place] [address] PCP - General Family Medicine 11/10/21 Team Status: Inactive Member Role Status Dates Dr. Terrance Alonso MD Primary Care Provider, Attend ing Provider Active [employer]oker Machine Operator Relationship Specialty Start Date End Date Terrance Alonso MD [address] [place] [address] PCP - General Family Medicine 11/10/21 Yoker Machine Operator Relationship Specialty Start Date End Date Terrance Alonso MD [address] [place] [address] PCP - General Family Medicine 11/10/21 Yoker Machine Operator Relationship Specialty Start Date End Date Terrance Alonso MD [address] [place] [address] PCP - General Family Medicine 11/10/21 Yoker Machine Operator Relationship Specialty Start Date End Date Terrance Alonso MD [address] [place] [address] PCP - General Family Medicine 11/10/21 Yoker Machine Operator Relationship Specialty Start Date End Date Terrance Alonso MD [address] [place] [address] PCP - General Family Medicine 11/10/21 Yoker Machine Operator Relationship Specialty Start Date End Date Terrance Alonso MD [address] [place] [address] PCP - General Family Medicine 11/10/21 Yoker Machine Operator Relationship Specialty Start Date End Date Terrance Alonso MD [address] [place] [address] PCP - General Family Medicine 11/10/21 Yoker Machine Operator Relationship Specialty Start Date End Date Terrance Alonso MD [address] [place] [address] PCP - General Family Medicine 11/10/21 Yoker Machine Operator Relationship Specialty Start Date End Date Terrance Alonso MD [address] [place] [address] PCP - General Family Medicine 11/10/21 Yoker Machine Operator Relationship Specialty Start Date End Date Terrance Alonso MD [address] [place] [address] PCP - General Family Medicine 11/10/21 Yoker Machine Operator Relationship Specialty Start Date End Date Terrance Alonso MD [address] [place] [address] PCP - General Family Medicine 11/10/21 Yoker Machine Operator Relationship Specialty Start Date End Date Terrance Alonso MD [address] [place] [address] PCP - General Family Medicine 11/10/21 Yoker Machine Operator Relationship Specialty Start Date End Date Terrance Alonso MD [address] [place] [address] PCP - General Family Medicine 11/10/21 Yoker Machine Operator Relationship Specialty Start Date End Date Terrance Alonso MD [address] [place] [address] PCP - General Family Medicine 11/10/21 Yoker Machine Operator Relationship Specialty Start Date End Date Terrance Alonso MD [address] [place] [address] PCP - General Family Medicine 11/10/21 Yoker Machine Operator Relationship Specialty Start Date End Date Terrance Alonso MD [address] [place] [address] PCP - General Family Medicine 11/10/21 Yoker Machine Operator Relationship Specialty Start Date End Date Terrance Alonso MD [address] [place] [address] PCP - General Family Medicine 11/10/21 Yoker Machine Operator Relationship Specialty Start Date End Date Terrance Alonso MD [address] [place] [address] PCP - General Family Medicine 11/10/21 Yoker Machine Operator Relationship Specialty Start Date End Date Terrance Alonso MD [address] [place] [address] PCP - General Family Medicine 11/10/21 Yoker Machine Operator Relationship Specialty Start Date End Date Terrance Alonso MD [address] [place] [address] PCP - General Family Medicine 11/10/21 Yoker Machine Operator Relationship Specialty Start Date End Date Terrance Alonso MD [address] [place] [address] PCP - General Family Medicine 11/10/21 Yoker Machine Operator Relationship Specialty Start Date End Date Terrance Alonso MD [address] [facility] [address] [place] [address] PCP - [facility] Medicine 11/10/21 Yoker Machine Operator Relationship Specialty Start Date End Date Terrance Alonso MD [address] [facility] [address] [place], [place] [address] PCP - [facility] 11/10/21 Team Status: Inactive Member Role Status Dates Dr. Terrance Alonso MD Primary Care Provider Active Start: October 02, 2024 End: October 02, 2024 Dr. Terrance Alonso MD Attending Provider Active Start: October 02, 2024 End: October 02, 2024 Dr. Terrance Alonso MD Referring Provider Active Start: October 02, 2024 End: October 02, 2024 Team Status: Inactive Member Role Status Dates Dr. Terrance Alonso MD Primary Care Provider Active Start: January 09, 2025 End: January 09, 2025 Dr. Terrance Alonso MD Attending Provider Active Start: January 09, 2025 End: January 09, 2025 Dr. Terrance Alonso MD Referring Provider Active Start: January 09, 2025 End: January 09, 2025 Team Status: Active Member Role/Relationship Status Dates Dr. Terrance Alonso MD Primary care physician Active Team Status: Inactive Member Role/Relationship Status Dates Dr. Terrance Alonso MD Primary care physician Active Start: April 30, 2025 End: April 30, 2025 Dr. Terrance Alonso MD Attending physician Active Start: April 30, 2025 End: April 30, 2025 Team Status: Active Member Role/Relationship Status Dates Dr. Terrance Alonso MD Primary care physician Active Start: May 09, 2025 Murray Hassan CROCHETER, CROCHETER-C Attending physician Active Start: May 09, 2025 Murray Hassan CROCHETER, CROCHETER-C Referring Provider Active Start: May 09, 2025 Team Status: Inactive Member Role/Relationship Status Dates Dr. Terrance Alonso MD Primary care physician Active Start: May 09, 2025 End: May 09, 2025 Murray Hassan NP, CROCHETER-C Attending physician Active Start: May 09, 2025 End: May 09, 2025 Murray Hassan NP, NP-Tacho Referring Provider Active Start: May 09, 2025 End: May 09, 2025 Goals (unrecognized section and content) Goals may be documented in a n alternate sectionGoals may be documented in an alternate sectionGoals may be documented in an alternate sectionGoals may be documented in an alternate sectionGoals may be documented in an alternate sectionGoals may be documented in an alternate sectionGoals may be documented in an alternate sectionGoals may be documented in an alternate section No data available for this sectionGoals may be documented in an alternate section No data available for this sectionGoals may be documented in an alternate sectionGoals may be documented in an alternate sectionGoals may be documented in an alternate sectionGoals may be documented in an alternate sectionGoals may be documented in an alternate sectionGoals may be documented in an alternate section FOR RECORDS PERTAINING TO PATIENTS WHO ARE OR HAVE BEEN ENROLLED IN A CHEMICAL DEPENDENCY/SUBSTANCEABUSE PROGRAM, SOME INFORMATION MAY BE OMITTED. This clinical summary was aggregated from multiple sources. Caution should be exercised in using it in the provision of clinical care. This summary normalizes information from multiple sources, and as a consequence, information in this document may materially change the coding, format and clinical context of patient data. In addition, data may be omitted in some cases. CLINICAL DECISIONS SHOULD BE BASED ON THE PRIMARY CLINICAL RECORDS. [employer] provides no warranty or guarantee of the accuracy or completeness of information in this document.
[2025-08-09 10:37] VITALS: BP 139/81; PULSE 87; O2SAT 95
--- NOTE | 2025-08-09 11:03 | ED.RN ---
C/O left lower leg pain. No obvious injury. Left pedal pulse present and strong. Full ROM.
[2025-08-09] MEDS: Ketorolac 30 MG/ML Syringe IM (11:28)
[2025-08-09 11:33] VITALS: BP 139/81; PULSE 87; RESP 20; TEMP 36.3; O2SAT 95
== END 2025-08-09 12:01 | disposition home or self-care (01) ==
PROVIDERS: Emergency Provider Emergency Medicine; PCP Family Medicine; Visit Provider Emergency Medicine
DX: M79.605 Pain in left leg (principal); I48.91 Unspecified atrial fibrillation; E11.9 Type 2 diabetes mellitus without complications; I10 Essential (primary) hypertension; J45.909 Unspecified asthma, uncomplicated; F17.210 Nicotine dependence, cigarettes, uncomplicated; E66.9 Obesity, unspecified
CPT/HCPCS: 73590; 82962; 93971; 96372; 99282

== ENCOUNTER → 2025-08-13 | Outpatient (CLI) | payer MEDICARE, SELFPAY ==
[2025-08-13 10:41] LABS: Hematocrit 43.5 % (37-47); Hemoglobin 14.2 g/dL (12.0-15.0); Immature Granulocytes Count 0.050 X10^3/uL (0.0-0.0); Mean Corp Hgb Conc 32.6 g/dL (32-36); Mean Corpuscular Volume 94.4 fL (81-99); Mean Platelet Vol. 10.1 fl (6.2-12.0); NRBC Flagged by Analyzer 0 % (0-5); Platelet Count 200 K/mm3 (150-450); RBC Distribution Width CV 13.5 % (11.6-14.6); RBC Distribution Width SD 46.9 fl (35.1-43.9); Red Blood Count 4.61 M/mm3 (4.2-5.4); White Blood Count 7.8 K/mm3 (4.4-11.0)
[2025-08-13 11:03] LABS: Albumin, Serum 4.0 g/dL (3.4-4.8)
== END | disposition home or self-care (01) ==
LOC: MTLAB 08:06
PROVIDERS: PCP Family Medicine; Referring Provider Specialist; Visit Provider Specialist
DX: Z01.812 Encounter for preprocedural laboratory examination (principal)
CPT/HCPCS: 36415; 82040; 85025